=== PATIENT | female | born 1945 | race Caucasian/White ===

== ENCOUNTER 2020-05-25 23:42 | Inpatient (IN) | payer MEDICARE, OTHER, SELFPAY ==
--- NOTE | ~2020-05-25 | XR_ITS ---
EXAMINATION: XR chest 1V portable EXAM DATE: 05/26/2020 00:43 INDICATION: Shortness of breath. TECHNIQUE: Portable AP frontal chest x-ray was obtained. Comparison is made to prior examination from 11/23/2019. FINDINGS: The cardiac silhouette is enlarged. Cardiac silhouette is stable in size compared to prior exam. There is pulmonary vascular congestion. Indistinct bilateral reticulation, could indicate mild pulmonary edema. Probable small left pleural effusion. No confluent consolidation or pneumothorax. M ild hyperinflation. There are mild bony degenerative changes. IMPRESSION: Congestive changes, possible mild edema. CHF? Reviewed, dictated and finalized at location A.
--- NOTE | ~2020-05-25 | US_ITS ---
EXAMINATION: US venous doppler LE EXAM DATE: 05/26/2020 13:53 INDICATION: History of blood clot. Dyspnea on exertion. Respiratory abnormality. TECHNIQUE: Multiple grayscale, color flow and Doppler images of the lower extremity deep venous syste ms bilaterally were obtained and reviewed. Comparison is made to prior examination from 02/02/2019. FINDINGS: Right side: The right common femoral, femoral and profunda veins demonstrate normal color flow, respi ratory variation, augmentation and compressibility. Compressibility, color flow confirmed within the right popliteal, posterior tibial, peroneal, and greater saphenous veins. Left side: The left common femoral, femoral and profunda veins demonstrate normal color flow, respira tory variation, augmentation and compressibility. Compressibility, color flow confirmed within the l eft popliteal, posterior tibial, peroneal, and greater saphenous veins. IMPRESSION: 1. No lower extremity deep venous thrombosis bilaterally. Reviewed, dictated and finalized at location A.
--- NOTE | 2020-05-25 23:43 | ED.SOB ---
HPI - SOB/Dyspnea General Chief Complaint: Shortness of Breath/Dyspnea Stated Complaint: sob History of Present Illness HPI Narrative: 74 yo female w/ h/o COPD, pulmonary HTN, a-fib presents from home for SOB. Per ems she has been more sob recently. Acute worse this evening. Gave herself a nebulizer treatment and took xanax just prior to EMS arrival. She was initially hypoxic and required 5 liters O2 to bring sats up. Doing better by the time they arrived at the ED. No feeling drowsy from the xanax and histopry is somewhat limited. Related Data Home Medications Medication Instructions Recorded Confirmed albuterol sulfate 2.5 mg INHALATION QID 05/26/20 05/26/20 apixaban [Eliquis] 5 mg PO BID 05/26/20 05/26/20 hydrocodone-acetaminophen 1 tablet PO Q6H PRN 05/26/20 05/26/20 metoprolol succinate 12.5 mg PO DAILY 05/26/20 05/26/20 Allergies Allergy/AdvReac Type Severity Reaction Status Date / Time No Known Allergies Allergy Unknown Verified 03/18/20 14:19 Review of Systems Review of Systems: All systems reviewed & are unremarkable except as noted in HPI and below Constitutional: Constitutional: Denies fever(s) Cardiovascular: Cardiovascular: Denies chest pain Respiratory: Respiratory: Reports dyspnea and Reports wheezing PMFSH Past Medical History Medical History Angina at rest Anxiety Arthritis Asthma Benign colon polyp Benign essential tremor Bronchitis Chronic atrial fibrillation Chronic diastolic congestive heart failure Echocardiogram in June 2019 showed normal ejection fraction at 65%, diastolic dysfunction, mild MR, mild , and severe pulmonary hypertension with a peak RVSP of 63 millimeters of mercury. Chronic pain Chronic pain disorder Chronic pain syndrome Due to chronic back and neck pain. She is on long-term opiate therapy. Chronic respiratory failure with hypoxia On 2.5 liters nasal cannula. COPD (chronic obstructive pulmonary disease) Depression DVT (deep venous thrombosis) Emphysema lung Fibromyalgia MYKEL (generalized anxiety disorder) GERD (gastroesophageal reflux disease) History of tobacco use Hypertension Inguinal hernia ALBERTO (obstructive sleep apnea) Osteoporosis Peripheral neuropathy Pneumonia Seasonal allergies Severe pulmonary arterial systolic hypertension RVSP of 63 millimeters of mercury on echocardiogram in June 2019. Sleep apnea treated with nocturnal BiPAP Takotsubo cardiomyopathy In May 2019 with ejection fraction as low as 25 to 30%. EF improved to 65% on echo in June 2019. Type 2 diabetes mellitus with autonomic neuropathy Uterine cancer UTI (urinary tract infection) Surgical History Surgical History History of 2 sections History of cardiac cath History of cholecystectomy History of dilatation and curettage History of gastric bypass History of incisional hernia repair History of right knee joint replacement History of surgical removal of ganglion cyst History of total abdominal hysterectomy and bilateral salpingo-oophorectomy For uterine cancer. History of tubal ligation Hx of section Status post exploratory laparotomy With adhesiolysis. Family History Family History Mother Diabetes mellitus Acute myocardial infarction Family history of chronic obstructive pulmonary disease Family history of heart disease in male family member before age 55 Patient's mother is Father Family history of arthritis Family history of emphysema Family history of lung disease Patient's father is Sibling Family history of malignant neoplasm of uterus Family history of malignant neoplasm of ovary Patient's sister is in good health Family history of malignant neoplasm Patient's sister is Other Family history o
[2020-05-25 23:44] VITALS: BP 164/60; PULSE 91; RESP 22; O2SAT 97
[2020-05-25 23:56] VITALS: PULSE 90
[2020-05-26] VITALS (27 sets, daily range): BP systolic 120–157; BP diastolic 51–87; PULSE 77–117; RESP 13–26; TEMP 36.3–37.1; O2SAT 90–96; BMI 44.0
--- NOTE | 2020-05-26 | ECHO_ITS ---
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 Summary 1. Left ventricular systolic function is normal, estimated at 60-65%. 2. There is mildly increased left ventricular wall thickness. 3. Global longitudinal strain is normal at -18 %. 4. Right ventricular chamber dimension is mildly enlarged. 5. Right atrial chamber dimension is mildly enlarged. 6. Left atrial chamber dimension is moderately enlarged. 7. There is mild mitral valve regurgitation. 8. There is mild tricuspid valve regurgitation. 9. Moderate pulmonary hypertension, estimated pulmonary arterial systolic pressure is 50 mmHg. Left Ventricle Left ventricular chamber dimension is normal. Left ventricular systolic function is normal, estimated at 60-65%. There is mildly increased left ventricular wall thickness. The left ventricular diastolic function is indeterminate. Global longitudinal strain is normal at -18 %. Right Ventricle Right ventricular chamber dimension is mildly enlarged. Right ventricular systolic function is normal. Left Atria Left atrial chamber dimension is moderately enlarged. Right Atria Right atrial chamber dimension is mildly enlarged. Aortic Valve The aortic valve is not well visualized. There is mild aortic valve sclerosis. There is no aortic valve stenosis. There is no aortic valve regurgitation. Pulmonic Valve The pulmonic valve is not well visualized. There is trace pulmonic regurgitation. Mitral Valve The mitral valve has normal leaflets. There is mild mitral valve regurgitation. The mitral valve annulus is mildly calcified. Tricuspid Valve The tricuspid valve leaflets are normal. There is mild tricuspid valve regurgitation. Moderate pulmonary hypertension, estimated pulmonary arterial systolic pressure is 50 mmHg. Pericardium/Pleural The pericardium appears normal. There is no pericardial effusion. Inferior Vena Cava Dilated inferior vena cava with >50% collapse upon inspiration consistent with elevated right atrial pressure, 10 mmHg. Aorta The aortic root size at the sinus of Valsalva is normal. Left Ventricular Outflow Tract Name Value Normal LVOT 2D LVOT Diameter 2.0 cm LVOT Doppler LVOT Peak Gradient 7 mmHg LVOT Mean Gradient 4 mmHg LVOT VTI 32 cm LVOT VTI/AV VTI Ratio 0.9 LVOT Stroke Volume 104 ml
[2020-05-26 00:01] LABS: Basophils Absolute Auto 0.1 K/mm3 (0.0-0.1); Basophils Percent Auto 0.9 % (0.2-1.2); Eosinophils Absolute Auto 0.2 K/mm3 (0-0.3); Eosinophils Percent Auto 2.5 % (0-4.4); Hemoglobin 9.3 g/dL (12.0-15.0); Immature Granulocyte Absolute 0.03 K/mm3 (0.00-0.031); Immature Granulocyte Percent A 0.4 % (0-0.5); Lymphocytes Absolute Auto 0.94 K/mm3 (0.9-3.2); Lymphocytes Percent Auto 12.2 % (18.3-44.2); Mean Corpuscular HGB Conc 29.1 g/dl (32-36); Mean Corpuscular Hemoglobin 24.2 pg (26-34); Mean Corpuscular Volume 83.1 fl (80-100); Mean Platelet Volume 8.5 fl (7.4-10.4); Monocytes Absolute Auto 0.6 K/mm3 (0.1-0.6); Monocytes Percent Auto 7.3 % (2.6-8.5); Neutrophils Absolute Auto 5.9 K/mm3 (1.3-6.7); Neutrophils Percent Auto 76.7 % (45.5-73.1); Platelet Count Result 425 k/mm3 (150-375); Red Blood Count 3.85 M/mm3 (4.2-5.4); Red Cell Distribution Width 17.4 % (11.5-14.5); White Blood Count 7.7 K/mm3 (4.5-10.0)
[2020-05-26] MEDS: ALBUTEROL SULFATE NEB 2.5 MG/0.5 ML INH 5 MG INHALATION ×5 (00:07→20:06)
[2020-05-26] MEDS: IPRATROPIUM BR 0.02% INH SOLN 0.5 MG/2.5 ML VIAL INHALATION ×5 (00:07→20:06)
[2020-05-26 00:11] LABS: Platelet Estimate Adequate (Adequate)
[2020-05-26 00:12] LABS: Hypochromasia 1+ (NORMAL)
--- NOTE | 2020-05-26 00:14 | ECG_ITS ---
Measurements Intervals [place] Rate: 82 P: [place]: 0 QRS: 118 QRSD: 98 T: 33 QT: 375 QTc: 439 Interpretive Statements ATRIAL FIBRILLATION BORDERLINE T WAVE ABNORMALITY- DIFFUSE LEADS BASELINE ARTIFACT- I, II, AVR, AVL, AVF, V1 ABNORMAL ECG Electronically Signed On 05-26-2020 6:53:34 CDT by Derian Tineo D.O.
[2020-05-26 00:16] LABS: Anion Gap 12.6 mmol/L (7-16); Blood Urea Nitrogen 8 mg/dL (7-17); Calcium 8.6 mg/dL (8.4-10.2); Carbon Dioxide 26 mmol/L (22-30); Chloride 105 mmol/L (98-107); Estimated CRCL calculation 136 ml/min; Estimated Glomerular Filt Rate > 60; Glucose 106 mg/dL (65-105); Potassium 3.6 mmol/L (3.4-5.0); Sodium 140 mmol/L (137-145)
[2020-05-26 00:17] LABS: INR 1.1; Partial Thromboplastin Time 30.5 SECONDS (22.3-36.8); Prothrombin Time 13.9 Seconds (11.1-14.7)
[2020-05-26 00:26] LABS: pH ABG 7.391 (7.350-7.450)
[2020-05-26 00:27] LABS: Base Excess ABG -0.8 mEq/l (+/-2.0); Oxygen Saturation ABG 97.1 % (95.0-100.0); PCO2 ABG 40.5 mmHg (35.0-45.0); PO2 ABG 92.8 mmHg (80.0-100.0); Total Hemoglobin 10.2 g/dL (12.0-18.0)
[2020-05-26 00:27] LABS: NT Pro B Type Natriuretic Pept 2290 PG/ML (5-100); Troponin I < 0.012 ng/mL (0.000-0.034)
[2020-05-26 00:28] LABS: Alveolar/Arterial O2 Gradient 145.8 mmHg; Carboxyhemoglobin 0.6 % THb (0-2.0); Oxygen Content ABG 13.9 %vol (16.0-22.0); Oxyhemoglobin 95.8 % THb (90.0-100.0)
[2020-05-26 00:29] LABS: Device NASAL CANNULA; Fractional Inspired Oxygen 40 %; Methemoglobin ABG 0.3 %THb (0-1.5); Modified Allen's Test Pass; PO2 FiO2 Ratio Arterial Blood 2.32 %; Reduced Hemoglobin 3.3 %THb (0-5.0); Site Drawn RIGHT RADIAL
[2020-05-26] MEDS: FUROSEMIDE INJ 40 MG/4 ML VIAL IV PUSH ×3 (00:48→21:05)
--- NOTE | 2020-05-26 01:08 | PC.NURSE ---
Pt placed down to 3.5 L of oxygen by RT. Pt breathing less labored after receiving neb treatments and able to talk in complete sentences. Pt states her pain is manly in her lower back. made aware.
--- NOTE | 2020-05-26 03:38 | ADMGEN ---
This patient, Cheyenne Sawyer, was admitted to 2 Medical Room 249-01. Patient/family oriented to hospital policies and general routines including ID bracelet, bed and alarms, visiting hours, pain management, procedures, bathroom and other care routines, personal items, smoking policy, room service/diet, and visiting hours. Valuables list has been completed. Information on how to activate the Rapid Response Team has been discussed. Patient/Family are encouraged to report perceived risks to care and to ask questions if they do not understand what they are told or what they should do.
--- NOTE | 2020-05-26 09:53 | PM.IMHP ---
H&P: HPI History of Present Illness Chief complaint: COPD exacerbation Narrative: Cheyenne Sawyer is a 74 year old female with a past medical history chronic oxygen use, AFib RVR, diastolic heart failure, COPD, and anxiety who presented emergency room from home for increasing shortness of breath. Patient states that at baseline she feels short of breath at times and utilizes oxygen but for the last week she feels like she can't catch her breath. She states that she feels short of breath just sitting and it is worse when she walks to the bathroom. She has a chair and between her room and the bathroom that she has to sit down on so she can make it to the bathroom. She also mentions that she has woken up twice from a does sleep with left-sided chest pain. This lasts only a few minutes and goes away on its own. She said it feels like a pressure like pain and breathing does not make it better or worse. on 1 of the occasions that she woke up, she walked to the bathroom at that time and the chest pain got worse but was better when she sat back down. she chronically takes Eliquis due to AFib but has been out of it for a month and she is trying to get a hold of Dr. Shin so she can get this refilled. She has seen cardiology in the past but has never followed up with them outpatient. As for her diuretic, she states that she misses pills occasionally because she is tired of urinating all the time. She probably missed 3 this week. Since then, she feels smothered when she tries to lay flat and is afraid to go to sleep because she is afraid to . She does feel little bit more weak and thinks physical therapy will help. She denies nausea, vomiting, fevers, chills, diarrhea or constipation. Last bowel movement was yesterday was normal for her. No dysuria. Review of Systems Review of Systems: All systems reviewed & are unremarkable except as noted in HPI and below PMFSH Past Medical History Medical History Angina at rest Anxiety Arthritis Asthma Benign colon polyp Benign essential tremor Bronchitis Chronic atrial fibrillation Chronic diastolic congestive heart failure Echocardiogram in June 2019 showed normal ejection fraction at 65%, diastolic dysfunction, mild MR, mild , and severe pulmonary hypertension with a peak RVSP of 63 millimeters of mercury. Chronic pain Chronic pain disorder Chronic pain syndrome Due to chronic back and neck pain. She is on long-term opiate therapy. Chronic respiratory failure with hypoxia On 2.5 liters nasal cannula. COPD (chronic obstructive pulmonary disease) Depression DVT (deep venous thrombosis) Emphysema lung Fibromyalgia MYKEL (generalized anxiety disorder) GERD (gastroesophageal reflux disease) History of tobacco use Hypertension Inguinal hernia ALBERTO (obstructive sleep apnea) Osteoporosis Peripheral neuropathy Pneumonia Seasonal allergies Severe pulmonary arterial systolic hypertension RVSP of 63 millimeters of mercury on echocardiogram in June 2019. Takotsubo cardiomyopathy In May 2019 with ejection fraction as low as 25 to 30%. EF improved to 65% on echo in June 2019. Type 2 diabetes mellitus with autonomic neuropathy Uterine cancer UTI (urinary tract infection) Surgical History Surgical History History of 2 sections History of cardiac cath History of cholecystectomy History of dilatation and curettage History of gastric bypass History of incisional hernia repair History of right knee joint replacement History of surgical removal of ganglion cyst History of total abdominal hysterectomy and bilateral salpingo-oophorectomy For uterine cancer. History of tubal ligation Hx of section Status post exploratory laparotomy With adhesiolysis. Family History Family History Mother Diab
[2020-05-26] MEDS: APIXABAN 5 MG TABLET PO ×2 (10:32→16:43)
[2020-05-26] MEDS: SPIRONOLACTONE 25 MG TABLET PO (10:32)
[2020-05-26] MEDS: ALPRAZolam 0.5 MG TABLET PO ×2 (10:32→21:05)
[2020-05-26] MEDS: CYCLOBENZAPRINE HCL 10 MG TABLET PO (10:32)
[2020-05-26] MEDS: LOSARTAN POTASSIUM 100 MG TABLET PO (10:32)
[2020-05-26] MEDS: amLODIPine BESYLATE 5 MG TABLET 10 MG PO (10:32)
[2020-05-26] MEDS: METOPROLOL SUCCINATE EXT REL 12.5 MG TABCR PO (10:33)
[2020-05-26] MEDS: TOLNAFTATE 1% POWDER 45 GM BTL 1 APPLIC TOPICAL ×2 (12:28→21:06)
[2020-05-26 13:13] LABS: Glucose Point of Care 196 (65-105)
[2020-05-26 17:21] LABS: Glucose Point of Care 144 (65-105)
[2020-05-26 20:54] LABS: Glucose Point of Care 83 (65-105)
[2020-05-26] MEDS: QUEtiapine FUMARATE 12.5 MG TABLET PO (21:05)
[2020-05-27] VITALS (17 sets, daily range): BP systolic 122–154; BP diastolic 66–74; PULSE 74–106; RESP 14–20; TEMP 36.1–36.6; O2SAT 90–98
[2020-05-27] MEDS: IPRATROPIUM BR 0.02% INH SOLN 0.5 MG/2.5 ML VIAL INHALATION ×3 (02:18→20:55)
[2020-05-27] MEDS: ALBUTEROL SULFATE NEB 2.5 MG/0.5 ML INH 5 MG INHALATION ×3 (02:18→20:55)
[2020-05-27 05:52] LABS: Hematocrit 30.8 % (37.0-47.0); Hemoglobin 9.2 g/dL (12.0-15.0); Mean Corpuscular HGB Conc 29.9 g/dl (32-36); Mean Corpuscular Hemoglobin 24.3 pg (26-34); Mean Corpuscular Volume 81.3 fl (80-100); Platelet Count Result 439 k/mm3 (150-375); Red Blood Count 3.79 M/mm3 (4.2-5.4); Red Cell Distribution Width 17.7 % (11.5-14.5); White Blood Count 9.1 K/mm3 (4.5-10.0)
[2020-05-27 06:02] LABS: Hemoglobin A1C 5.6 % (<5.7)
[2020-05-27 06:22] LABS: Anion Gap 13.1 mmol/L (7-16); Blood Urea Nitrogen 19 mg/dL (7-17); CRP 2.6 mg/dL (<1.0); Calcium 8.2 mg/dL (8.4-10.2); Carbon Dioxide 30 mmol/L (22-30); Chloride 98 mmol/L (98-107); Estimated CRCL calculation 93 ml/min; Estimated Glomerular Filt Rate > 60; Glucose 125 mg/dL (65-105); Lactate Dehydrogenase 384 U/L (313-618); Magnesium 1.9 mg/dL (1.6-2.3); Potassium 3.1 mmol/L (3.4-5.0); Sodium 138 mmol/L (137-145)
[2020-05-27 08:01] LABS: Glucose Point of Care 120 (65-105)
[2020-05-27] MEDS: POTASSIUM CHLORIDE 20 MEQ TABLET 40 MEQ PO (08:21)
[2020-05-27] MEDS: METOPROLOL SUCCINATE EXT REL 12.5 MG TABCR PO (08:21)
[2020-05-27] MEDS: SPIRONOLACTONE 25 MG TABLET PO (08:21)
[2020-05-27] MEDS: ALPRAZolam 0.5 MG TABLET PO ×2 (08:21→21:05)
[2020-05-27] MEDS: amLODIPine BESYLATE 5 MG TABLET 10 MG PO (08:21)
[2020-05-27] MEDS: APIXABAN 5 MG TABLET PO ×2 (08:21→17:41)
[2020-05-27] MEDS: predniSONE 20 MG TABLET 40 MG PO (08:22)
[2020-05-27] MEDS: LOSARTAN POTASSIUM 100 MG TABLET PO (08:22)
[2020-05-27] MEDS: FUROSEMIDE INJ 40 MG/4 ML VIAL IV PUSH ×2 (08:22→14:32)
[2020-05-27] MEDS: TOLNAFTATE 1% POWDER 45 GM BTL 1 APPLIC TOPICAL ×2 (08:25→21:06)
--- NOTE | 2020-05-27 09:14 | PM.IMPN ---
Progress Note: A&P Assessment and Plan (1) Acute and chronic respiratory failure: Qualifiers: Respiratory failure complication: unspecified whether with hypoxia or hypercapnia Qualified Code(s): J96.20 - Acute and chronic respiratory failure, unspecified whether with hypoxia or hypercapnia Code(s): J96.20 - Acute and chronic respiratory failure, unspecified whether with hypoxia or hypercapnia Status: Acute Assessment and Plan: Acute on chronic respiratory failure. Patient is usually 3 L of oxygen at home and had to be increased to 5 L. She is now on baseline 3L. Her acute on chronic respiratory failure is likely due to CHF exacerbation with a mild component of COPD as she does have wheezing. She still has mild edema to the lower extremities as well as rales at the bases. She is also on spironolactone at home which we will continue. Last echo was October 2019 which showed an EF of 60% with moderate pulmonary hypertension and diastolic dysfunction. Since she has had a change in status. Echo was repeated and results are pending. Consider cardiology consult if there are new findings on echocardiogram. She may need a stress test outpatient as well for her worsening dyspnea on exertion, worsening CHF, and chest pain, although, there may be a component of anxiety here. She needs to follow-up with cardiology outpatient as advised in the past. Overall, she is much improved with her current regimen with adequate diuresis. Plan to give one additional IV push of lasix this afternoon (she does not want to take it right before bed) and resume lasix 40mg PO QD for tomorrow. (2) Acute on chronic diastolic (congestive) heart failure: Code(s): I50.33 - Acute on chronic diastolic (congestive) heart failure Status: Acute Assessment and Plan: Chest x-ray consistent with CHF exacerbation as well as patient reports hypoxia. Will continue with above plan. Echo ordered and pending. (3) COPD exacerbation: Code(s): J44.1 - Chronic obstructive pulmonary disease with (acute) exacerbation Status: Acute Assessment and Plan: Continue inhalers. Continue PO prednisone. Continue home oxygen. She is at her baseline. She still has wheezes. (4) Chronic pain: Code(s): G89.29 - Other chronic pain Status: Acute Assessment and Plan: Continue home [place]. Patient has longstanding neck and back pain that she sees pain management for. (5) MYKEL (generalized anxiety disorder): Code(s): F41.1 - Generalized anxiety disorder Status: Acute Assessment and Plan: Patient has a history of anxiety. She takes alprazolam p.r.n. at home and we will continue with that. It looks like she was discharged on buspirone in October and this was never completed. She should speak to her doctor about possible SSRI but she is also on Seroquel although she is unsure if she takes this medication. Will continue with that as well (6) Type 2 diabetes mellitus with autonomic neuropathy: Code(s): E11.43 - Type 2 diabetes mellitus with diabetic autonomic (poly)neuropathy Status: Acute Assessment and Plan: The patient's A1c in October was 6.8 and she was discharged on Lantus to [facility]. She took it while she was there and when she was discharged from there, they gave her a pain with no needles and she never followed up with that. Repeat A1c was 5.6. Blood sugar elevations are likely due to steroid therapy. Plan to continue ACHS glucose monitoring, sliding scale insulin, and hypoglycemia protocl. (7) ALBERTO (obstructive sleep apnea): Code(s): G47.33 - Obstructive sleep apnea (adult) (pediatric) Status: Acute Assessment and Plan: Continue CPAP titrated to home settings. (8) Chronic atrial fibrillation: Code(s): I48.20 - Chronic atrial fibrillation, unspecified Status: Acute Assessment and Plan: Rate well-control
[2020-05-27 11:36] LABS: Glucose Point of Care 138 (65-105)
[2020-05-27 16:55] LABS: Glucose Point of Care 159 (65-105)
--- NOTE | 2020-05-27 18:35 | PC.NURSE ---
On 05/27/20, the license-pending RN, Nannette Mueller, provided care and completed [employer] ([employer] documentation on this patient. I have reviewed the license-pending RN's documentation and agree with the findings.
[2020-05-27] MEDS: QUEtiapine FUMARATE 12.5 MG TABLET PO (21:05)
[2020-05-27 21:26] LABS: Glucose Point of Care 156 (65-105)
[2020-05-28] VITALS (19 sets, daily range): BP systolic 142–148; BP diastolic 65–77; PULSE 75–101; RESP 16–20; TEMP 36.2–36.5; O2SAT 93–97
[2020-05-28] MEDS: IPRATROPIUM BR 0.02% INH SOLN 0.5 MG/2.5 ML VIAL INHALATION ×4 (02:30→20:37)
[2020-05-28] MEDS: ALBUTEROL SULFATE NEB 2.5 MG/0.5 ML INH 5 MG INHALATION ×4 (02:30→20:37)
[2020-05-28 05:28] LABS: Hematocrit 30.4 % (37.0-47.0); Hemoglobin 8.9 g/dL (12.0-15.0); Mean Corpuscular HGB Conc 29.3 g/dl (32-36); Mean Corpuscular Hemoglobin 23.6 pg (26-34); Mean Corpuscular Volume 80.6 fl (80-100); Mean Platelet Volume 8.5 fl (7.4-10.4); Platelet Count Result 482 k/mm3 (150-375); Red Blood Count 3.77 M/mm3 (4.2-5.4); Red Cell Distribution Width 17.6 % (11.5-14.5); White Blood Count 8.7 K/mm3 (4.5-10.0)
[2020-05-28 05:41] LABS: Anion Gap 10.3 mmol/L (7-16); Blood Urea Nitrogen 25 mg/dL (7-17); Calcium 8.3 mg/dL (8.4-10.2); Carbon Dioxide 31 mmol/L (22-30); Chloride 99 mmol/L (98-107); Estimated CRCL calculation 81 ml/min; Estimated Glomerular Filt Rate > 60; Glucose 109 mg/dL (65-105); Magnesium 2.1 mg/dL (1.6-2.3); Potassium 3.3 mmol/L (3.4-5.0); Sodium 137 mmol/L (137-145)
[2020-05-28] MEDS: POTASSIUM CHLORIDE 20 MEQ TABLET PO (08:00)
[2020-05-28] MEDS: predniSONE 20 MG TABLET 40 MG PO (08:01)
[2020-05-28] MEDS: SPIRONOLACTONE 25 MG TABLET PO (08:01)
[2020-05-28] MEDS: METOPROLOL SUCCINATE EXT REL 12.5 MG TABCR PO (08:01)
[2020-05-28] MEDS: amLODIPine BESYLATE 5 MG TABLET 10 MG PO (08:01)
[2020-05-28] MEDS: FUROSEMIDE 40 MG TABLET PO (08:02)
[2020-05-28] MEDS: APIXABAN 5 MG TABLET PO ×2 (08:02→18:25)
[2020-05-28] MEDS: ALPRAZolam 0.5 MG TABLET PO ×2 (08:02→20:08)
[2020-05-28] MEDS: LOSARTAN POTASSIUM 100 MG TABLET PO (08:02)
[2020-05-28] MEDS: TOLNAFTATE 1% POWDER 45 GM BTL 1 APPLIC TOPICAL ×2 (08:03→20:09)
[2020-05-28 08:05] LABS: Glucose Point of Care 99 (65-105)
[2020-05-28 11:30] LABS: Glucose Point of Care 154 (65-105)
--- NOTE | 2020-05-28 14:44 | PM.IMPN ---
Progress Note: A&P Assessment and Plan (1) Acute and chronic respiratory failure: Qualifiers: Respiratory failure complication: unspecified whether with hypoxia or hypercapnia Qualified Code(s): J96.20 - Acute and chronic respiratory failure, unspecified whether with hypoxia or hypercapnia Code(s): J96.20 - Acute and chronic respiratory failure, unspecified whether with hypoxia or hypercapnia Status: Acute Assessment and Plan: Acute on chronic respiratory failure. Patient is usually 3 L of oxygen at home and had to be increased to 5 L. She is now on baseline 3L. Her acute on chronic respiratory failure is likely due to CHF exacerbation with a mild component of COPD as she does have wheezing. She still has mild edema to the lower extremities as well as rales at the bases. She is also on spironolactone at home which we will continue. Last echo was October 2019 which showed an EF of 60% with moderate pulmonary hypertension and diastolic dysfunction. Since she has had a change in status. Echo was repeated and results are pending. Consider cardiology consult if there are new findings on echocardiogram. She may need a stress test outpatient as well for her worsening dyspnea on exertion, worsening CHF, and chest pain, although, there may be a component of anxiety here. She needs to follow-up with cardiology outpatient as advised in the past. Overall, she is much improved with her current regimen with adequate diuresis. Plan to give one additional IV push of lasix this afternoon (she does not want to take it right before bed) and resume lasix 40mg PO QD for tomorrow. 05/28/20 14:44 patient is 74 year female history of chronic respiratory failure on oxygen 3 L nasal cannula patient was brought to the emergency department with shortness of breath and worsening hypoxia requiring 5 L of oxygen, patient has been diuresed with p.o. Lasix, recent cardiac echo showed preserved LV function, undetermined diastolic function however moderate pulmonary hypertension, her overall symptoms are improved, now patient is on her baseline with a 3 L of oxygen and able to participate physical therapy, continue the present management reassess and may possibly discharge home tomorrow (2) Acute on chronic diastolic (congestive) heart failure: Code(s): I50.33 - Acute on chronic diastolic (congestive) heart failure Status: Acute Assessment and Plan: Chest x-ray consistent with CHF exacerbation as well as patient reports hypoxia. Will continue with above plan. Echo ordered and pending. (3) COPD exacerbation: Code(s): J44.1 - Chronic obstructive pulmonary disease with (acute) exacerbation Status: Acute Assessment and Plan: Continue inhalers. Continue PO prednisone. Continue home oxygen. She is at her baseline. She still has wheezes. (4) Chronic pain: Code(s): G89.29 - Other chronic pain Status: Acute Assessment and Plan: Continue home [place]. Patient has longstanding neck and back pain that she sees pain management for. (5) MYKEL (generalized anxiety disorder): Code(s): F41.1 - Generalized anxiety disorder Status: Acute Assessment and Plan: Patient has a history of anxiety. She takes alprazolam p.r.n. at home and we will continue with that. It looks like she was discharged on buspirone in October and this was never completed. She should speak to her doctor about possible SSRI but she is also on Seroquel although she is unsure if she takes this medication. Will continue with that as well (6) Type 2 diabetes mellitus with autonomic neuropathy: Code(s): E11.43 - Type 2 diabetes mellitus with diabetic autonomic (poly)neuropathy Status: Acute Assessment and Plan: The patient's A1c in October was 6.8 and she was discharged on Lantus to [facility]. She took it while she was there and when she was discharged from there, they gave her
[2020-05-28 17:06] LABS: Glucose Point of Care 167 (65-105)
[2020-05-28] MEDS: QUEtiapine FUMARATE 12.5 MG TABLET PO (20:08)
[2020-05-28 23:30] LABS: Glucose Point of Care 118 (65-105)
[2020-05-29] VITALS (16 sets, daily range): BP systolic 122–128; BP diastolic 62–70; PULSE 74–107; RESP 16–20; TEMP 36.3–36.4; O2SAT 94–97
[2020-05-29] MEDS: ALBUTEROL SULFATE NEB 2.5 MG/0.5 ML INH 5 MG INHALATION ×3 (01:05→13:14)
[2020-05-29] MEDS: IPRATROPIUM BR 0.02% INH SOLN 0.5 MG/2.5 ML VIAL INHALATION ×3 (01:05→13:15)
[2020-05-29 05:52] LABS: Anion Gap 11.5 mmol/L (7-16); Blood Urea Nitrogen 23 mg/dL (7-17); Calcium 8.3 mg/dL (8.4-10.2); Carbon Dioxide 30 mmol/L (22-30); Chloride 97 mmol/L (98-107); Estimated CRCL calculation 93 ml/min; Estimated Glomerular Filt Rate > 60; Glucose 103 mg/dL (65-105); Potassium 3.5 mmol/L (3.4-5.0); Sodium 135 mmol/L (137-145)
[2020-05-29 07:40] LABS: Glucose Point of Care 95 (65-105)
[2020-05-29] MEDS: POTASSIUM CHLORIDE 20 MEQ TABLET PO (08:00)
[2020-05-29] MEDS: CYCLOBENZAPRINE HCL 10 MG TABLET PO (08:01)
[2020-05-29] MEDS: ALPRAZolam 0.5 MG TABLET PO (08:01)
[2020-05-29] MEDS: predniSONE 20 MG TABLET 40 MG PO (08:02)
[2020-05-29] MEDS: FUROSEMIDE 40 MG TABLET PO (08:02)
[2020-05-29] MEDS: APIXABAN 5 MG TABLET PO ×2 (08:02→16:29)
[2020-05-29] MEDS: LOSARTAN POTASSIUM 100 MG TABLET PO (08:02)
[2020-05-29] MEDS: amLODIPine BESYLATE 5 MG TABLET 10 MG PO (08:02)
[2020-05-29] MEDS: TOLNAFTATE 1% POWDER 45 GM BTL 1 APPLIC TOPICAL (08:03)
[2020-05-29] MEDS: METOPROLOL SUCCINATE EXT REL 12.5 MG TABCR PO (08:03)
[2020-05-29] MEDS: SPIRONOLACTONE 25 MG TABLET PO (08:03)
[2020-05-29 11:53] LABS: Glucose Point of Care 144 (65-105)
--- NOTE | 2020-05-29 16:10 | PM.DS ---
DS: Admitting Diagnosis Admitting Diagnosis Admitting Diagnosis: Acute and chronic respiratory failure, unspecified whether with hypoxia or hypercapnia DS: Discharge Diagnosis Discharge Diagnosis (1) Acute and chronic respiratory failure: Qualifiers: Respiratory failure complication: unspecified whether with hypoxia or hypercapnia Qualified Code(s): J96.20 - Acute and chronic respiratory failure, unspecified whether with hypoxia or hypercapnia Code(s): J96.20 - Acute and chronic respiratory failure, unspecified whether with hypoxia or hypercapnia Status: Acute Assessment and Plan: Acute on chronic respiratory failure. Patient is usually 3 L of oxygen at home and had to be increased to 5 L. She is now on baseline 3L. Her acute on chronic respiratory failure is likely due to CHF exacerbation with a mild component of COPD as she does have wheezing. She still has mild edema to the lower extremities as well as rales at the bases. She is also on spironolactone at home which we will continue. Last echo was October 2019 which showed an EF of 60% with moderate pulmonary hypertension and diastolic dysfunction. Since she has had a change in status. Echo was repeated and results are pending. Consider cardiology consult if there are new findings on echocardiogram. She may need a stress test outpatient as well for her worsening dyspnea on exertion, worsening CHF, and chest pain, although, there may be a component of anxiety here. She needs to follow-up with cardiology outpatient as advised in the past. Overall, she is much improved with her current regimen with adequate diuresis. Plan to give one additional IV push of lasix this afternoon (she does not want to take it right before bed) and resume lasix 40mg PO QD for tomorrow. 05/28/20 14:44 patient is 74 year female history of chronic respiratory failure on oxygen 3 L nasal cannula patient was brought to the emergency department with shortness of breath and worsening hypoxia requiring 5 L of oxygen, patient has been diuresed with p.o. Lasix, recent cardiac echo showed preserved LV function, undetermined diastolic function however moderate pulmonary hypertension, her overall symptoms are improved, now patient is on her baseline with a 3 L of oxygen and able to participate physical therapy, continue the present management reassess and may possibly discharge home tomorrow (2) Acute on chronic diastolic (congestive) heart failure: Code(s): I50.33 - Acute on chronic diastolic (congestive) heart failure Status: Acute Assessment and Plan: Chest x-ray consistent with CHF exacerbation as well as patient reports hypoxia. Will continue with above plan. Echo ordered and pending. (3) COPD exacerbation: Code(s): J44.1 - Chronic obstructive pulmonary disease with (acute) exacerbation Status: Acute Assessment and Plan: Continue inhalers. Continue PO prednisone. Continue home oxygen. She is at her baseline. She still has wheezes. (4) Chronic pain: Code(s): G89.29 - Other chronic pain Status: Acute Assessment and Plan: Continue home [place]. Patient has longstanding neck and back pain that she sees pain management for. (5) MYKEL (generalized anxiety disorder): Code(s): F41.1 - Generalized anxiety disorder Status: Acute Assessment and Plan: Patient has a history of anxiety. She takes alprazolam p.r.n. at home and we will continue with that. It looks like she was discharged on buspirone in October and this was never completed. She should speak to her doctor about possible SSRI but she is also on Seroquel although she is unsure if she takes this medication. Will continue with that as well (6) Type 2 diabetes mellitus with autonomic neuropathy: Code(s): E11.43 - Type 2 diabetes mellitus with diabetic autonomic (poly)neuropathy Status: Acute Assessment and Plan: The patient's
[2020-05-29 16:27] LABS: Glucose Point of Care 146 (65-105)
== END 2020-05-29 17:50 | disposition home or self-care (01) | DRG 291 ==
LOC: ANHED 23:57 → ANH2MED 05-26 02:02
PROVIDERS: Family Medicine; Physician Assistant; Admitting Provider Internal Medicine; Emergency Provider Emergency Medicine; PCP Family Medicine; Visit Provider Physician Assistant
DX: I11.0 Hypertensive heart disease with heart failure (principal); J96.20 Acute and chronic respiratory failure, unspecified whether with hypoxia or hypercapnia; J44.1 Chronic obstructive pulmonary disease with (acute) exacerbation; I48.20 Chronic atrial fibrillation, unspecified; I50.33 Acute on chronic diastolic (congestive) heart failure; G47.33 Obstructive sleep apnea (adult) (pediatric); I27.20 Pulmonary hypertension, unspecified; M81.0 Age-related osteoporosis without current pathological fracture; E11.43 Type 2 diabetes mellitus with diabetic autonomic (poly)neuropathy; K21.9 Gastro-esophageal reflux disease without esophagitis; M79.7 Fibromyalgia; G89.4 Chronic pain syndrome; E87.6 Hypokalemia; T50.2X5A Adverse effect of carbonic-anhydrase inhibitors, benzothiadiazides and other diuretics, initial encounter; Z96.651 Presence of right artificial knee joint; Z85.42 Personal history of malignant neoplasm of other parts of uterus; Z86.718 Personal history of other venous thrombosis and embolism; Z87.891 Personal history of nicotine dependence; Z90.49 Acquired absence of other specified parts of digestive tract; Z98.84 Bariatric surgery status; Z90.710 Acquired absence of both cervix and uterus
CPT/HCPCS: 36415; 36600; 71045; 80048; 82375; 82728; 82805; 83036; 83050; 83615; 83735; 83880; 84484; 85025; 85027; 85610; 85730; 86140; 93005; 93306; 93970; 94640; 96374; 97161; 97166; 99285; A9270; G0378; J1940; J7512

== ENCOUNTER 2021-01-13 13:41 | Emergency (ER) | payer MEDICARE, OTHER, SELFPAY ==
[2021-01-13] VITALS (7 sets, daily range): BP systolic 162–188; BP diastolic 73–96; PULSE 81–115; RESP 17–23; TEMP 37.1; O2SAT 96–98
--- NOTE | ~2021-01-13 | XR_ITS ---
EXAMINATION: XR chest 1V portable EXAM DATE: 01/13/2021 14:46 INDICATION: Shortness of breath. TECHNIQUE: Portable AP frontal chest x-ray was obtained. Comparison is made to prior examination from 05/26/2020. FINDINGS: Cardiomegaly and pulmonary vascular congestion. Possible mild pulmonary edema. No confluent consolidation, pneumothorax or pleural effusion suspected. Some chronic hyperinflation. There is aor tic arteriosclerosis. There are bony degenerative changes. IMPRESSION: Cardiomegaly. Possible mild CHF exacerbation. Reviewed, dictated and finalized at location A.
--- NOTE | 2021-01-13 13:42 | ECG_ITS ---
Measurements Intervals [place] Rate: 50 P: VT: 0 QRS: 152 QRSD: 125 T: 60 QT: 306 QTc: 280 Interpretive Statements ATRIAL FIBRILLATION RIGHT BUNDLE BRANCH BLOCK LEFT POSTERIOR FASCICULAR BLOCK LOW VOLTAGE- PRECORDIAL LEADS CANNOT RULE OUT SEPTAL INFARCT, AGE INDETERMINATE BASELINE ARTIFACT- I, III, AVL, V1-V2 ABNORMAL ECG Electronically Signed On 01-13-2021 13:59:03 CDT by Derian Tineo D.O.
--- NOTE | 2021-01-13 14:17 | ED.SOB ---
HPI - SOB/Dyspnea General Chief Complaint: Shortness of Breath/Dyspnea Stated Complaint: SOB Source: patient and EMS Mode of arrival: EMS Limitations: no limitations History of Present Illness HPI Narrative: 75 years old white female presents with increased shortness of breath over the last 3 to 4 days. Patient denies any chest pain, increase coughing or increase the amount of sputum production. Patient reports a lot of stress lately. Currently patient on 3 L of oxygen all the time. History of COPD, CHF, atrial fibrillation on Eliquis. Patient lives alone but her daughter and son lives next door Patient ran out of alprazolam 2 days ago Related Data Home Medications Medication Instructions Recorded Confirmed hydrocodone-acetaminophen 1 tablet PO Q6H PRN 05/26/20 10/13/20 meloxicam 01/13/21 Allergies Allergy/AdvReac Type Severity Reaction Status Date / Time No Known Allergies Allergy Unknown Verified 01/13/21 13:50 Review of Systems Review of Systems: Narrative: CONSTITUTIONAL: Denies fever, chills, or sweats. EYES: Denies visual changes, redness, or discharge. ENT: Denies rhinorrhea, congestion, sore throat, or otalgia. CARDIOVASCULAR: Denies chest pain, palpitations, or edema. RESPIRATORY: dyspnea. GASTROINTESTINAL: Denies abdominal pain, nausea, vomiting, or diarrhea. GENITOURINARY: Denies dysuria or hematuria. SKIN: Denies rash or itching. MUSCULOSKELETAL: Denies back pain, joint pain, or myalgia. NEUROLOGIC: Denies headache, numbness, or weakness. PSYCHIATRIC: Denies anxiety or depression. [facility] Past Medical History Medical History Angina at rest Anxiety Arthritis Asthma Benign colon polyp Benign essential tremor Bronchitis Chronic atrial fibrillation Chronic diastolic congestive heart failure Chronic pain Chronic pain disorder Chronic pain syndrome Due to chronic back and neck pain. She is on long-term opiate therapy. Chronic respiratory failure with hypoxia On 2.5 liters nasal cannula. COPD (chronic obstructive pulmonary disease) Depression DVT (deep venous thrombosis) Emphysema lung Fibromyalgia MYKEL (generalized anxiety disorder) GERD (gastroesophageal reflux disease) History of tobacco use Hypertension Inguinal hernia ALBERTO (obstructive sleep apnea) Osteoporosis Peripheral neuropathy Pneumonia Seasonal allergies Severe pulmonary arterial systolic hypertension RVSP of 63 millimeters of mercury on echocardiogram in June 2019. Takotsubo cardiomyopathy In May 2019 with ejection fraction as low as 25 to 30%. EF improved to 65% on echo in June 2019. Type 2 diabetes mellitus with autonomic neuropathy Uterine cancer UTI (urinary tract infection) Surgical History Surgical History History of 2 sections History of cardiac cath History of cholecystectomy History of dilatation and curettage History of gastric bypass History of incisional hernia repair History of right knee joint replacement History of surgical removal of ganglion cyst History of total abdominal hysterectomy and bilateral salpingo-oophorectomy For uterine cancer. History of tubal ligation Hx of section Status post exploratory laparotomy With adhesiolysis. Family History Family History Mother Diabetes mellitus Acute myocardial infarction Family history of chronic obstructive pulmonary disease Family history of heart disease in male family member before age 55 Patient's mother is Father Family history of arthritis Family history of emphysema Family history of lung disease Patient's father is Sibling Family history of malignant neoplasm of uterus Family history of malignant neoplasm of ovary Patient's sister is in good health Family history of malignant neoplasm Patient's sister
[2021-01-13 14:25] LABS: Alveolar/Arterial O2 Gradient 104.5 mmHg; Base Excess ABG 4.3 mEq/l (+/-2.0); Fractional Inspired Oxygen 32 %; HCO3 ABG 27.2 mEq/l (22.0-26.0); Oxygen Content ABG 15.3 %vol (16.0-22.0); Oxygen Saturation ABG 97.1 % (95.0-100.0); Oxyhemoglobin 95.2 % THb (90.0-100.0); PCO2 ABG 34.7 mmHg (35.0-45.0); PO2 ABG 83.1 mmHg (80.0-100.0); Total Hemoglobin 11.4 g/dL (12.0-18.0)
[2021-01-13 14:26] LABS: Modified Allen's Test Pass; Site Drawn RIGHT RADIAL; pH ABG 7.512 (7.350-7.450)
[2021-01-13 14:27] LABS: Device NASAL CANNULA
[2021-01-13 14:27] LABS: Basophils Absolute Auto 0.1 K/mm3 (0.0-0.1); Eosinophils Absolute Auto 0.2 K/mm3 (0-0.3); Eosinophils Percent Auto 2.5 % (0-4.4); Hematocrit 35.9 % (37.0-47.0); Immature Granulocyte Absolute 0.04 K/mm3 (0.00-0.031); Immature Granulocyte Percent A 0.5 % (0-0.5); Lymphocytes Absolute Auto 1.33 K/mm3 (0.9-3.2); Lymphocytes Percent Auto 16.3 % (18.3-44.2); Mean Corpuscular HGB Conc 30.6 g/dl (32-36); Mean Corpuscular Hemoglobin 27.3 pg (26-34); Mean Corpuscular Volume 89.1 fl (80-100); Mean Platelet Volume 8.8 fl (7.4-10.4); Monocytes Absolute Auto 0.5 K/mm3 (0.1-0.6); Monocytes Percent Auto 6.5 % (2.6-8.5); Neutrophils Percent Auto 73.2 % (45.5-73.1); Platelet Count Result 459 k/mm3 (150-375); Red Blood Count 4.03 M/mm3 (4.2-5.4); Red Cell Distribution Width 15.9 % (11.5-14.5); White Blood Count 8.2 K/mm3 (4.5-10.0)
[2021-01-13 14:34] LABS: INR 1.2; Partial Thromboplastin Time 32.2 SECONDS (22.3-36.8); Prothrombin Time 15.4 Seconds (11.1-14.7)
[2021-01-13 14:37] LABS: D Dimer 0.37 ug/mL (<0.48)
[2021-01-13 14:41] LABS: Alanine Aminotransferase 13 U/L (4-35); Albumin Level 4.7 g/dL (3.5-5.1); Alkaline Phosphatase 125 U/L (38-126); Anion Gap 12 mmol/L (8-16); Aspartate Amino Transferase 25 U/L (14-36); Bilirubin,Total 0.9 mg/dL (0.2-1.3); Blood Urea Nitrogen 11 mg/dL (7-17); Calcium 8.6 mg/dL (8.4-10.2); Carbon Dioxide 28 mmol/L (22-30); Chloride 100 mmol/L (98-107); Estimated CRCL calculation 95 ml/min; Estimated Glomerular Filt Rate > 60; Glucose 125 mg/dL (65-105); Potassium 3.1 mmol/L (3.4-5.0); Sodium 140 mmol/L (137-145)
[2021-01-13 14:48] LABS: NT Pro B Type Natriuretic Pept 4060 PG/ML (5-100)
[2021-01-13 14:51] LABS: Troponin I 0.012 ng/mL (0.000-0.034)
[2021-01-13] MEDS: POTASSIUM CHLORIDE 20 MEQ PACKET (FOR LIQUID) 40 MEQ PO (15:21)
[2021-01-13] MEDS: LORazepam (*CRX) 0.5 MG TABLET 1 MG PO (15:54)
--- NOTE | 2021-01-13 16:12 | PC.NURSE ---
Pt daughter not happy about pt being discharged. Pt states its fine, ill just go home, its just my nerves I explained that i would have the dr come back and talk to them. They states no its fine Ill just go home Daughter states we'll just come back tonight mom when you can't breath Pt asks can you ask the dr if he will write a prescription for her pain medicine because i am going to keep her at my house and i dont want to drive all the way to her house to get her meds and she hasn't had them since this morning. this RN made MD aware. MD at bedside at this time.
--- NOTE | 2021-01-13 16:30 | PC.NURSE ---
This RN to DC patient. Pt daughter states to patient don't sign that mom, cause we dont agree with you leaving This RN asked the pt if she felt comfortable leaving and she again states its fine Daughter asked if a new doctor would be here tonight and states that she will probably be back. Pt able to ambulate to wheelchair, in no distress, and was wheeled out to the exit by geotechnical laboratory technician.
== END 2021-01-13 16:37 | disposition home or self-care (01) ==
PROVIDERS: Emergency Provider Emergency Medicine; PCP Family Medicine
DX: F41.1 Generalized anxiety disorder (principal); E87.6 Hypokalemia; F45.8 Other somatoform disorders; I48.20 Chronic atrial fibrillation, unspecified; I50.32 Chronic diastolic (congestive) heart failure; I11.0 Hypertensive heart disease with heart failure; J96.11 Chronic respiratory failure with hypoxia; J43.9 Emphysema, unspecified; G89.4 Chronic pain syndrome; K21.9 Gastro-esophageal reflux disease without esophagitis; F32.9 Major depressive disorder, single episode, unspecified; G47.33 Obstructive sleep apnea (adult) (pediatric); M81.0 Age-related osteoporosis without current pathological fracture; E11.43 Type 2 diabetes mellitus with diabetic autonomic (poly)neuropathy; M79.7 Fibromyalgia; Z85.42 Personal history of malignant neoplasm of other parts of uterus; Z79.01 Long term (current) use of anticoagulants; Z86.718 Personal history of other venous thrombosis and embolism; Z87.440 Personal history of urinary (tract) infections; Z98.84 Bariatric surgery status; Z96.651 Presence of right artificial knee joint; Z87.891 Personal history of nicotine dependence; I45.2 Bifascicular block; R94.31 Abnormal electrocardiogram [ECG] [EKG]
CPT/HCPCS: 36415; 36600; 71045; 80053; 82805; 83880; 84484; 85025; 85380; 85610; 85730; 87040; 93005; 99284; A9270

== ENCOUNTER 2021-02-17 09:49 | Outpatient (CLI) | payer MEDICARE, OTHER, SELFPAY ==
--- NOTE | ~2021-02-17 | XR_ITS ---
XR lumbar spine 2-3V DATE: 02/17/2021 10:20 INDICATION: Lower back pain, radiculopathy TECHNIQUE: AP, lateral, coned lateral lumbosacral views COMPARISON: 09/04/2014 lumbar spine FINDINGS: There is levoscoliosis of the thoracolumbar spine. There is diffuse osteopenia. There is moderate degenerative disc disease at L1-2 and L3-4 and severe degenerative disc disease at L2-3, L4-5 and L5-S1. No fracture or bone destruction is evident. The lumbar pedicles are intact. The sacroiliac joints jack ear normal. Surgical clips overlie both sides of the pelvis. Mild abdominal aortic and more prominent iliac arter ial calcifications. IMPRESSION: Degenerative disc disease of the lumbar and lumbosacral spine Osteopenia Scoliosis Reviewed, dictated and finalized at location A.
== END 2021-02-17 09:50 | disposition home or self-care (01) ==
LOC: ANHIMG 09:55
PROVIDERS: PCP Family Medicine; Visit Provider Pain Medicine Interventional Pain Medicine
DX: M51.36 Other intervertebral disc degeneration, lumbar region (principal); G89.4 Chronic pain syndrome; Z79.891 Long term (current) use of opiate analgesic; Z51.81 Encounter for therapeutic drug level monitoring; Z13.89 Encounter for screening for other disorder; M85.88 Other specified disorders of bone density and structure, other site; M41.9 Scoliosis, unspecified
CPT/HCPCS: 72100

== ENCOUNTER 2021-03-22 12:51 | Inpatient (IN) | payer MEDICARE, OTHER, SELFPAY ==
[2021-03-22] VITALS (11 sets, daily range): BP systolic 133–215; BP diastolic 58–87; PULSE 77–116; RESP 16–22; TEMP 36.1–37.3; O2SAT 93–100; BMI 48.6
--- NOTE | ~2021-03-22 | CT_ITS ---
EXAMINATION: CT abdomen pelvis w con DATE: 03/22/2021 15:15 INDICATION: Lower abdomen pain TECHNIQUE: Computed tomography (CT) of the abdomen and pelvis was performed with 100 cc Omnipaque 350 intravenous contrast. The dose-length product was 1489.77 mGy-cm. Automated exposure control and ite rative reconstruction technique were employed. COMPARISON: CT dated 07/16/2017 FINDINGS: Stable 6 mm right lower lobe nodule, image 9. Bibasilar atelectasis. Cardiomegaly. No signi ficant pleural or pericardial effusion. There is enlargement of the left hepatic lobe with suggestion of nodular surface, suspicious for cirrhosis. Cholecystectomy clips are present. The spleen, pancrea s, left adrenal gland are unremarkable. There is a stable 1.5 cm right adrenal nodule, likely benign adenoma. Nonobstructive bowel gas pattern. There are calcified granulomas of the liver and spleen. Normal appe ndix. No significant vascular abnormality. No lymphadenopathy. There is extensive fatty infiltration and a subcutaneous fluid in the anterior abdominal wall, suspic ious for cellulitis. There are changes of gastric bypass surgery. Severe lumbar spondylosis. IMPRESSION: 1. Extensive fatty infiltration and subcutaneous fluid anterior abdominal wall inferiorly, suspicious for cellulitis. 2: Possible cirrhosis. 3: Cardiomegaly. Reviewed, dictated and finalized at location A.
--- NOTE | ~2021-03-22 | XR_ITS ---
EXAMINATION: XR chest 1V DATE: 03/22/2021 14:26 INDICATION: Weakness. TECHNIQUE: A single frontal view of the chest was obtained. COMPARISON: Chest single view 01/13/2021, chest CT 10/04/2019 FINDINGS: The patient is rotated to her left. There is mild atelectasis in left midlung zone. No pleu ral effusion or pneumothorax. Cardiomegaly is noted. IMPRESSION: 1. Mild atelectasis in left midlung zone. 2. Cardiomegaly. Reviewed, dictated and finalized at location B.
--- NOTE | ~2021-03-22 | US_ITS ---
US abdomen limited INDICATION: Elevated liver function tests PROCEDURE: Realtime right upper abdominal ultrasound. COMPARISON: No prior studies for comparison. FINDINGS: The pancreas is normal without focal mass or pancreatic ductal dilation. Liver echotexture is normal without focal mass or intrahepatic biliary dilatation. There is normal directional flow i n the portal vein. Gallbladder is surgically absent. Common bile duct measures 4.7 mm. . IMPRESSION: 1: Unremarkable limited abdominal ultrasound postcholecystectomy. Reviewed, dictated and finalized at location A.
--- NOTE | ~2021-03-22 | CT_ITS ---
EXAMINATION: CT brain wo con DATE: 03/22/2021 14:26 INDICATION: Weakness. TECHNIQUE: Computed tomography (CT) of the head was performed without intravenous contrast. The mA wa s adjusted according to patient size. Iterative reconstruction technique was employed. The dose-lengt h product was 605.33 mGy-cm. COMPARISON: Head CT 11/14/2019 FINDINGS: There is no intracranial hemorrhage, acute infarction, or abnormal intracranial mass lesion . The ventricles are normal in size. The paranasal sinuses are clear. The orbits are normal. The mast oid air cells are normal. IMPRESSION: 1. Normal brain. Reviewed, dictated and finalized at location B. IMPRESSION: 1. Normal brain.
--- NOTE | 2021-03-22 13:10 | ECG_ITS ---
Measurements Intervals [place] Rate: 93 P: NE: 0 QRS: 116 QRSD: 122 T: 16 QT: 380 QTc: 473 Interpretive Statements ATRIAL FIBRILLATION RIGHT AXIS DEVIATION RIGHT BUNDLE BRANCH BLOCK BASELINE WANDER- I, II, III, V3 ABNORMAL ECG Electronically Signed On 03-22-2021 20:25:35 CDT by Derian Tineo D.O.
--- NOTE | 2021-03-22 13:53 | ED.WEAKNESS ---
HPI - Weakness General Chief complaint: Weakness Stated complaint: SOB Time Seen by Provider: 03/22/21 13:25 Source: patient, family and RN notes reviewed Mode of arrival: EMS Limitations: clinical condition History of Present Illness HPI Narrative: This is a 75 year old female with multiple medical problems including COPD, chronic O2 dependence who presents for evaluation of generalized weakness. Patient states she has not felt well for 1 week. She reports weakness that has progressively worsened. She was unable to stand today. She reports abdominal pain when she eats but she is unable to specific other details. When asked if she is have any other symptoms she states she does not know. She denies falling today. Her daughter does state patient's edema is worse today, and patient states she has not taken her medications today. Related Data Home Medications Medication Instructions Recorded Confirmed hydrocodone-acetaminophen 1 tablet PO Q6H PRN 05/26/20 03/22/21 meloxicam 15 mg PO DAILY 01/13/21 03/22/21 budesonide-formoterol [Symbicort] 2 puff INHALATION BID 03/22/21 03/22/21 metoprolol succinate 12.5 mg PO DAILY 03/22/21 03/22/21 Allergies Allergy/AdvReac Type Severity Reaction Status Date / Time No Known Allergies Allergy Unknown Verified 03/22/21 13:28 Review of Systems Review of Systems: ROS unobtainable: Yes unobtainable due to medical condition PMFSH Past Medical History Medical History Angina at rest Anxiety Arthritis Asthma Benign colon polyp Benign essential tremor Bronchitis Chronic atrial fibrillation Chronic diastolic congestive heart failure Chronic pain Chronic pain disorder Chronic pain syndrome Due to chronic back and neck pain. She is on long-term opiate therapy. Chronic respiratory failure with hypoxia On 2.5 liters nasal cannula. COPD (chronic obstructive pulmonary disease) Depression DVT (deep venous thrombosis) Emphysema lung Fibromyalgia MYKEL (generalized anxiety disorder) GERD (gastroesophageal reflux disease) History of tobacco use Hypertension Inguinal hernia ALBERTO (obstructive sleep apnea) Osteoporosis Peripheral neuropathy Pneumonia Seasonal allergies Severe pulmonary arterial systolic hypertension RVSP of 63 millimeters of mercury on echocardiogram in June 2019. Takotsubo cardiomyopathy In May 2019 with ejection fraction as low as 25 to 30%. EF improved to 65% on echo in June 2019. Type 2 diabetes mellitus with autonomic neuropathy Uterine cancer UTI (urinary tract infection) Surgical History Surgical History History of 2 sections History of cardiac cath History of cholecystectomy History of dilatation and curettage History of gastric bypass History of incisional hernia repair History of right knee joint replacement History of surgical removal of ganglion cyst History of total abdominal hysterectomy and bilateral salpingo-oophorectomy For uterine cancer. History of tubal ligation Hx of section Status post exploratory laparotomy With adhesiolysis. Family History Family History Mother Diabetes mellitus Acute myocardial infarction Family history of chronic obstructive pulmonary disease Family history of heart disease in male family member before age 55 Patient's mother is Father Family history of arthritis Family history of emphysema Family history of lung disease Patient's father is Sibling Family history of malignant neoplasm of uterus Family history of malignant neoplasm of ovary Patient's sister is in good health Family history of malignant neoplasm Patient's sister is Other Family history of cardiovascular disease Family history of osteoarthritis Hypertension Social History Social
[2021-03-22 14:08] LABS: Alveolar/Arterial O2 Gradient 91.7 mmHg; Base Excess ABG 2.5 mEq/l (+/-2.0); Carboxyhemoglobin 0.9 % THb (0-2.0); Fractional Inspired Oxygen 30 %; HCO3 ABG 28.1 mEq/l (22.0-26.0); Methemoglobin ABG 0.2 %THb (0-1.5); Oxygen Content ABG 14.4 %vol (16.0-22.0); Oxygen Saturation ABG 92.7 % (95.0-100.0); Oxyhemoglobin 91.9 % THb (90.0-100.0); PCO2 ABG 47.8 mmHg (35.0-45.0); Total Hemoglobin 11.1 g/dL (12.0-18.0); pH ABG 7.387 (7.350-7.450)
[2021-03-22 14:09] LABS: Device NASAL CANNULA; Liters per Minute 2.5 LPM; Modified Allen's Test Pass; Site Drawn RIGHT RADIAL
[2021-03-22 14:14] LABS: Basophils Absolute Auto 0.1 K/mm3 (0.0-0.1); Basophils Percent Auto 0.8 % (0.2-1.2); Eosinophils Absolute Auto 0.1 K/mm3 (0-0.3); Eosinophils Percent Auto 1.2 % (0-4.4); Hematocrit 37.5 % (37.0-47.0); Immature Granulocyte Absolute 0.04 K/mm3 (0.00-0.031); Immature Granulocyte Percent A 0.4 % (0-0.5); Lymphocytes Absolute Auto 1.13 K/mm3 (0.9-3.2); Lymphocytes Percent Auto 11.3 % (18.3-44.2); Mean Corpuscular HGB Conc 29.3 g/dl (32-36); Mean Corpuscular Hemoglobin 26.4 pg (26-34); Mean Corpuscular Volume 90.1 fl (80-100); Mean Platelet Volume 9.1 fl (7.4-10.4); Monocytes Absolute Auto 0.7 K/mm3 (0.1-0.6); Monocytes Percent Auto 6.6 % (2.6-8.5); Neutrophils Percent Auto 79.7 % (45.5-73.1); Platelet Count Result 354 k/mm3 (150-375); Red Blood Count 4.16 M/mm3 (4.2-5.4)
[2021-03-22 14:28] LABS: Add Urine Microscopic? YES; Appearance Urine Cloudy (Clear); Bacteria Urine Trace /hpf; Bilirubin Urine Negative (Negative); Blood Urine Negative (Negative); Color Urine Yellow (Yellow); Glucose Urine UA Negative (Negative); Ketones Urine Negative (Negative); Leukocyte Esterase Ur 2+ LEU/UL (Negative); Mucus Urine Rare /lpf; Nitrate Urine Positive (Negative); Protein Urine 1+ mg/dL (Negative); RBC Urine 0-2 /hpf (0-2); Specific Grav Ur 1.021 (1.001-1.035); Squamous Epithelial Cell Urine Many /hpf (Few); Urobilinogen Urine Negative mg/dL (<2.0); WBC Urine 16-20 /hpf
[2021-03-22 14:31] LABS: Alanine Aminotransferase 25 U/L (4-35); Albumin Level 4.3 g/dL (3.5-5.1); Alkaline Phosphatase 157 U/L (38-126); Anion Gap 7 mmol/L (8-16); Aspartate Amino Transferase 46 U/L (14-36); Bilirubin,Total 0.6 mg/dL (0.2-1.3); Blood Urea Nitrogen 13 mg/dL (7-17); Calcium 9.4 mg/dL (8.4-10.2); Carbon Dioxide 31 mmol/L (22-30); Chloride 104 mmol/L (98-107); Estimated CRCL calculation 93 ml/min; Estimated Glomerular Filt Rate > 60; Glucose 127 mg/dL (65-105); INR 1.1; Prothrombin Time 14.4 Seconds (11.1-14.7); Sodium 142 mmol/L (137-145)
[2021-03-22 14:32] LABS: Lactic Acid Reflex 1.7 mmol/L (0.7-2.1); Lipase 31 U/L (23-300); Partial Thromboplastin Time 31.2 SECONDS (22.3-36.8)
[2021-03-22 14:40] LABS: NT Pro B Type Natriuretic Pept 1610 pg/mL (5-100)
[2021-03-22] MEDS: hydrALAZINE HCL 20 MG/ML VIAL IV PUSH (14:45)
[2021-03-22 14:46] LABS: Troponin I 0.035 ng/mL (0.000-0.034)
[2021-03-22] MEDS: FUROSEMIDE INJ 40 MG/4 ML VIAL IV PUSH (16:39)
[2021-03-22] MEDS: HYDROcodone/acetaminophen (*CRX) 10-325 MG TABLET 1 TAB PO (20:42)
--- NOTE | 2021-03-22 21:52 | PC.NURSE ---
This patient, Cheyenne Sawyer, was admitted to 2 Medical Room 249-01. Patient/family oriented to hospital policies and general routines including ID bracelet, bed and alarms, visiting hours, pain management, procedures, bathroom and other care routines, personal items, smoking policy, room service/diet, and visiting hours. Information on how to activate the Rapid Response Team has been discussed. Patient/Family are encouraged to report perceived risks to care and to ask questions if they do not understand what they are told or what they should do.
--- NOTE | 2021-03-22 23:36 | PM.IMHP ---
H&P: HPI History of Present Illness Date/Time: 03/22/21 23:36 this is a 78 year old female patient who lives at home by herself. She has a history of having COPD and chronic hypoxia. The patient typically wears oxygen at 2.5 L and increase it up to 3 L now. The patient has not been feeling well for weak. The nurse told me that the patient took herself off of her diuretics because she does not want to get up and urinate so much. Also the nurse explained to me that the patient was excoriated under her breast and her [place] area. The patient had been at [facility] at 1 time for 6 weeks and the patient stated that she was kicked out of the [facility]. She said she lives home alone and that her grandson comes over and helps her. The patient was unable to stand today and she was very weak. She was having some abdominal pain and she had increased swelling to abdomen and lower extremities. The patient denied falling today but is very weak. I got her up to the side of the bed and then back to the bed she became very wheezy and short of breath. Chest x-ray was read as mild atelectasis in left midline zone cardiomegaly CT of the abdomen pelvis extensive fatty infiltrate subcutaneous fluid anterior abdomen wall inferiorly suspicious for cellulitis. Possible cirrhosis. Cardiomegaly. The patient was started on Rocephin For possibility of UTI. Patient was is created to her abdomen and under her breast. Most likely fungal. I changed her to Zosyn to cover for urine and UTI. Patient is being admitted for observation status on the date of service of 03/22/2021 Chief Complaint: Shortness of breath Review of Systems Review of Systems: All systems reviewed & are unremarkable except as noted in HPI and below Constitutional: Constitutional: Reports as per HPI and Reports no additional constitutional complaints Eyes: Eyes: Reports as per HPI and Reports no additional eye complaints ENT: Reports system reviewed and no additional complaints, except as documented and Reports Normal hearing present Cardiovascular: Cardiovascular: Reports no additional cardiovascular complaints Respiratory: Respiratory: Reports no additional respiratory complaints and Reports no additional respiratory complaints Gastrointestinal: Gastrointestinal: Reports as per HPI and Reports no additional gastrointestinal complaints Musculoskeletal: Musculoskeletal: Reports no additional musculoskeletal complaints Integumentary/Breasts: Skin/Breast: Reports system reviewed and no additional complaints, except as docu and Reports as per HPI Neurologic: Reports system reviewed and no additional complaints, except as documented, Reports as per HPI and Reports Normal hearing present Psychiatric: Psychiatric: Reports no additional psychiatric complaints and Reports as per HPI Endocrine: Endocrine: Reports no additional endocrine complaints Hematologic/Lymphatic: Hematologic/Lymphatic: Reports no additional hematologic/lymphatic complaints Allergic/Immunologic: Allergic/Immunologic: Reports no additional allergic/immunologic complaints [facility] [place] Past Medical History Medical History Angina at rest Anxiety Arthritis Asthma Benign colon polyp Benign essential tremor Bronchitis Chronic atrial fibrillation Chronic diastolic congestive heart failure Chronic pain Chronic pain disorder Chronic pain syndrome Due to chronic back and neck pain. She is on long-term opiate therapy. Chronic respiratory failure with hypoxia On 2.5 liters nasal cannula. COPD (chronic obstructive pulmonary disease) Depression DVT (deep venous thrombosis) Emphysema lung Fibromyalgia MYKEL (generalized anxiety disorder) GERD (gastroesophageal reflux disease) History of tobacco use Hypertension Inguinal hernia ALBERTO (obstructive sleep apnea) Osteoporosis Peripheral neuropathy Pneumonia Seasonal allergies Severe pulmonary arterial systolic hypertension RV
[2021-03-23] VITALS (16 sets, daily range): BP systolic 125–150; BP diastolic 53–76; PULSE 73–98; RESP 18–22; TEMP 36–36.4; O2SAT 94–99
[2021-03-23] MEDS: carvediloL 12.5 MG TABLET PO ×3 (00:07→20:36)
[2021-03-23] MEDS: ALBUTEROL SULFATE NEB 2.5 MG/3 ML INH 1.25 MG INHALATION (00:07)
[2021-03-23] MEDS: POTASSIUM CHLORIDE 20 MEQ PACKET (FOR LIQUID) 40 MEQ PO (00:08)
[2021-03-23] MEDS: HYDROcodone/acetaminophen (*CRX) 10-325 MG TABLET 1 TAB PO ×3 (03:48→20:53)
[2021-03-23 05:46] LABS: Basophils Absolute Auto 0.1 K/mm3 (0.0-0.1); Eosinophils Absolute Auto 0.1 K/mm3 (0-0.3); Eosinophils Percent Auto 1.8 % (0-4.4); Hematocrit 33.3 % (37.0-47.0); Hemoglobin 10.1 g/dL (12.0-15.0); Immature Granulocyte Absolute 0.02 K/mm3 (0.00-0.031); Immature Granulocyte Percent A 0.3 % (0-0.5); Lymphocytes Absolute Auto 0.96 K/mm3 (0.9-3.2); Lymphocytes Percent Auto 13.1 % (18.3-44.2); Mean Corpuscular HGB Conc 30.3 g/dl (32-36); Mean Corpuscular Hemoglobin 26.4 pg (26-34); Mean Corpuscular Volume 87.2 fl (80-100); Mean Platelet Volume 8.7 fl (7.4-10.4); Monocytes Absolute Auto 0.6 K/mm3 (0.1-0.6); Monocytes Percent Auto 7.6 % (2.6-8.5); Neutrophils Absolute Auto 5.6 K/mm3 (1.3-6.7); Neutrophils Percent Auto 76.2 % (45.5-73.1); Platelet Count Result 343 k/mm3 (150-375); Red Blood Count 3.82 M/mm3 (4.2-5.4); Red Cell Distribution Width 16.7 % (11.5-14.5); White Blood Count 7.3 K/mm3 (4.5-10.0)
[2021-03-23 06:07] LABS: Alanine Aminotransferase 44 U/L (4-35); Albumin Level 3.9 g/dL (3.5-5.1); Alkaline Phosphatase 154 U/L (38-126); Anion Gap 4 mmol/L (8-16); Aspartate Amino Transferase 75 U/L (14-36); Bilirubin,Total 0.5 mg/dL (0.2-1.3); Blood Urea Nitrogen 9 mg/dL (7-17); Calcium 8.8 mg/dL (8.4-10.2); Carbon Dioxide 35 mmol/L (22-30); Chloride 103 mmol/L (98-107); Estimated CRCL calculation 98 ml/min; Estimated Glomerular Filt Rate > 60; Glucose 133 mg/dL (65-105); Potassium 3.3 mmol/L (3.4-5.0); Sodium 142 mmol/L (137-145)
[2021-03-23] MEDS: POTASSIUM CHLORIDE 20 MEQ TABLET.ER PO (08:14)
[2021-03-23] MEDS: MELOXICAM 7.5 MG TABLET 15 MG PO (08:14)
[2021-03-23] MEDS: hydrALAZINE 10 MG TABLET PO ×2 (08:14→16:46)
[2021-03-23] MEDS: METOPROLOL SUCCINATE EXT REL 12.5 MG TABCR PO (08:15)
[2021-03-23] MEDS: FUROSEMIDE 40 MG TABLET PO (08:15)
[2021-03-23] MEDS: APIXABAN 5 MG TABLET PO ×2 (08:15→16:46)
[2021-03-23] MEDS: LOSARTAN POTASSIUM 100 MG TABLET PO (08:15)
[2021-03-23] MEDS: SPIRONOLACTONE 25 MG TABLET PO (08:15)
--- NOTE | 2021-03-23 09:54 | PCPTNOTE ---
MV PT; 9:54am. Patient adamantly refuses therapy; states she doesn't want to do anything despite multiple attempts to explain why therapy is necessary. artist's manager for discharge notified of situation. Will attempt again later.
--- NOTE | 2021-03-23 13:27 | P.PNIM_ITS ---
Progress Note: A&P Assessment and Plan (1) Acute UTI: Code(s): N39.0 - Urinary tract infection, site not specified Status: Acute Assessment and Plan: Urinalysis abnormal at presentation. She denies any significant urinary symptoms. She is afebrile. No leukocytosis. * Continue Rocephin * Urine culture is pending. Await results and tailor antibiotics accordingly. * Blood cultures pending (2) Weakness: Code(s): R53.1 - Weakness Status: Acute Assessment and Plan: She has had difficulty walking. Suspect this is related to overall physical deconditioning, and likely worsened by suspected acute infection. * Appreciate PT/OT eval * Care coordination following. It looks as though she wishes to go to SNF for rehab * Fall precautions (3) Candidiasis: Code(s): B37.9 - Candidiasis, unspecified Status: Acute Assessment and Plan: Under left breast and left pannus. No evidence to suggest acute bacterial i nfection. * Change to tolnaftate powder * Supportive care to include moisture wicking with pillow cases under pannus and breast. * I will ask wound care team to evaluate tomorrow for any further recomme ndations (4) Atrial fibrillation: Code(s): I48.91 - Unspecified atrial fibrillation Status: Acute Assessment and Plan: Telemetry reviewed. She is in atrial fibrillation with rate controlled * Continue Eliquis and Coreg * Discontinue telemetry (5) Anemia: Code(s): D64.9 - Anemia, unspecified Status: Acute Assessment and Plan: Labs are consistent with baseline. No evidence of acute bleeding * Monitor H&H (6) Chronic respiratory failure with hypoxia: Code(s): J96.11 - Chronic respiratory failure with hypoxia Status: Acute Assessment and Plan: She uses 2.5-3 L supplemental O2 at home. Suspect this is multifactorial to include COPD, asthma, ALBERTO. CXR with no acute findings. She is maintaining adequate oxygenation on 3 L * Continue supplemental oxygen with goal saturation 90% or above * CPAP at night (7) Hypertension: Qualifiers: Hypertension type: essential hypertension Qualified Code(s): I10 - Essential (primary) hypertension Code(s): I10 - Essential (primary) hypertension Status: Acute Assessment and Plan: Blood pressures were elevated upon presentation up to 251/87. This has improved with resuming her home antihypertensives. Last BP 140/73. * Continue carvedilol, losartan, spironolactone, and hydralazine (8) Chronic diastolic congestive heart failure: Code(s): I50.32 - Chronic diastolic (congestive) heart failure Status: Acute Assessment and Plan: Clinically compensated. BNP is only mildly elevated given her age. She appears euvolemic. * Continue Lasix and spironolactone * Monitor volume status closely * Check daily weights * Heart healthy diet (9) Hypokalemia: Code(s): E87.6 - Hypokalemia Status: Acute Assessment and Plan: Potassium slightly decreased. May be related to diuresis with Lasix, despite use of spironolactone. * Supplement with 20 mEq KCL * Monitor potassium levels closely with daily BMP. Cautious use with potassium supplementation given concurrent spironolactone use (10) Elevated liver enzymes: Code(s): R74.8 - Abnormal levels of other serum enzymes Status: Acute Assessment and Plan:
--- NOTE | 2021-03-23 13:27 | PM.IMPN ---
Progress Note: A&P Assessment and Plan (1) Acute UTI: Code(s): N39.0 - Urinary tract infection, site not specified Status: Acute Assessment and Plan: Urinalysis abnormal at presentation. She denies any significant urinary symptoms. She is afebrile. No leukocytosis. Continue Rocephin Urine culture is pending. Await results and tailor antibiotics accordingly. Blood cultures pending (2) Weakness: Code(s): R53.1 - Weakness Status: Acute Assessment and Plan: She has had difficulty walking. Suspect this is related to overall physical deconditioning, and likely worsened by suspected acute infection. Appreciate PT/OT eval Care coordination following. It looks as though she wishes to go to SNF for rehab Fall precautions (3) Candidiasis: Code(s): B37.9 - Candidiasis, unspecified Status: Acute Assessment and Plan: Under left breast and left pannus. No evidence to suggest acute bacterial infection. Change to tolnaftate powder Supportive care to include moisture wicking with pillow cases under pannus and breast. I will ask wound care team to evaluate tomorrow for any further recommendations (4) Atrial fibrillation: Code(s): I48.91 - Unspecified atrial fibrillation Status: Acute Assessment and Plan: Telemetry reviewed. She is in atrial fibrillation with rate controlled Continue Eliquis and Coreg Discontinue telemetry (5) Anemia: Code(s): D64.9 - Anemia, unspecified Status: Acute Assessment and Plan: Labs are consistent with baseline. No evidence of acute bleeding Monitor H&H (6) Chronic respiratory failure with hypoxia: Code(s): J96.11 - Chronic respiratory failure with hypoxia Status: Acute Assessment and Plan: She uses 2.5-3 L supplemental O2 at home. Suspect this is multifactorial to include COPD, asthma, ALBERTO. CXR with no acute findings. She is maintaining adequate oxygenation on 3 L Continue supplemental oxygen with goal saturation 90% or above CPAP at night (7) Hypertension: Qualifiers: Hypertension type: essential hypertension Qualified Code(s): I10 - Essential (primary) hypertension Code(s): I10 - Essential (primary) hypertension Status: Acute Assessment and Plan: Blood pressures were elevated upon presentation up to 251/87. This has improved with resuming her home antihypertensives. Last BP 140/73. Continue carvedilol, losartan, spironolactone, and hydralazine (8) Chronic diastolic congestive heart failure: Code(s): I50.32 - Chronic diastolic (congestive) heart failure Status: Acute Assessment and Plan: Clinically compensated. BNP is only mildly elevated given her age. She appears euvolemic. Continue Lasix and spironolactone Monitor volume status closely Check daily weights Heart healthy diet (9) Hypokalemia: Code(s): E87.6 - Hypokalemia Status: Acute Assessment and Plan: Potassium slightly decreased. May be related to diuresis with Lasix, despite use of spironolactone. Supplement with 20 mEq KCL Monitor potassium levels closely with daily BMP. Cautious use with potassium supplementation given concurrent spironolactone use (10) Elevated liver enzymes: Code(s): R74.8 - Abnormal levels of other serum enzymes Status: Acute Assessment and Plan: LFTs are mildly elevated. CT abdomen/pelvis suggests possible cirrhosis. Total bilirubin is within normal limits Will obtain right upper quadrant ultrasound Check hepatitis panel Subjective Date/time seen: 03/23/21 13:28 Interval history: Date of service: 03/23/2021 Cheyenne Sawyer is a 75-year-old female with a history of asthma with COPD, chronic atrial fibrillation on chronic anticoagulation, CHF, type 2 diabetes mellitus, and several other comorbidities who is seen in follow-up for suspec
[2021-03-23 16:38] LABS: Hepatitis B Surface Antigen Negative (Negative)
[2021-03-23 16:43] LABS: HAV RESULT Negative (Negative); Hepatitis B Core IgM Result Negative (Negative)
[2021-03-23] MEDS: TOLNAFTATE 1% POWDER 45 GM BTL 1 APPLIC TOPICAL ×2 (16:45→20:41)
[2021-03-23 16:55] LABS: Hepatitis C Virus Antibody Negative (Negative)
[2021-03-24] VITALS (10 sets, daily range): BP systolic 139–167; BP diastolic 66–80; PULSE 63–79; RESP 16–20; TEMP 36.2–36.6; O2SAT 96–98
[2021-03-24] MEDS: HYDROcodone/acetaminophen (*CRX) 10-325 MG TABLET 1 TAB PO ×3 (05:12→18:52)
[2021-03-24 06:08] LABS: Hematocrit 33.5 % (37.0-47.0); Mean Corpuscular HGB Conc 29.9 g/dl (32-36); Mean Corpuscular Hemoglobin 26.5 pg (26-34); Mean Corpuscular Volume 88.6 fl (80-100); Mean Platelet Volume 9.3 fl (7.4-10.4); Platelet Count Result 337 k/mm3 (150-375); Red Blood Count 3.78 M/mm3 (4.2-5.4); Red Cell Distribution Width 16.8 % (11.5-14.5); White Blood Count 5.7 K/mm3 (4.5-10.0)
[2021-03-24 06:26] LABS: Alanine Aminotransferase 35 U/L (4-35); Albumin Level 3.8 g/dL (3.5-5.1); Alkaline Phosphatase 135 U/L (38-126); Anion Gap 3 mmol/L (8-16); Aspartate Amino Transferase 45 U/L (14-36); Bilirubin,Total 0.3 mg/dL (0.2-1.3); Blood Urea Nitrogen 10 mg/dL (7-17); Calcium 8.6 mg/dL (8.4-10.2); Carbon Dioxide 36 mmol/L (22-30); Chloride 101 mmol/L (98-107); Estimated CRCL calculation 96 ml/min; Estimated Glomerular Filt Rate > 60; Glucose 108 mg/dL (65-105); Potassium 3.2 mmol/L (3.4-5.0); Sodium 140 mmol/L (137-145)
[2021-03-24] MEDS: METOPROLOL SUCCINATE EXT REL 12.5 MG TABCR PO (07:59)
[2021-03-24] MEDS: SPIRONOLACTONE 25 MG TABLET PO (07:59)
[2021-03-24] MEDS: FUROSEMIDE 40 MG TABLET PO (08:00)
[2021-03-24] MEDS: hydrALAZINE 10 MG TABLET PO ×2 (08:00→16:36)
[2021-03-24] MEDS: APIXABAN 5 MG TABLET PO ×2 (08:01→16:36)
[2021-03-24] MEDS: LOSARTAN POTASSIUM 100 MG TABLET PO (08:01)
[2021-03-24] MEDS: POTASSIUM CHLORIDE 20 MEQ TABLET.ER PO (08:01)
[2021-03-24] MEDS: MELOXICAM 7.5 MG TABLET 15 MG PO (08:01)
[2021-03-24] MEDS: carvediloL 12.5 MG TABLET PO ×2 (08:01→20:07)
[2021-03-24] MEDS: TOLNAFTATE 1% POWDER 45 GM BTL 1 APPLIC TOPICAL ×2 (08:02→20:08)
[2021-03-24 09:01] LABS: Hemoglobin A1C 5.9 % (<5.7)
[2021-03-24] MEDS: POTASSIUM CHLORIDE 20 MEQ TABLET PO (11:36)
--- NOTE | 2021-03-24 14:55 | PM.IMPN ---
Progress Note: A&P Assessment and Plan (1) Acute UTI: Code(s): N39.0 - Urinary tract infection, site not specified Status: Acute Assessment and Plan: Urinalysis abnormal at presentation. She is afebrile. No leukocytosis. Urine culture grew >100,000 CFU E coli. Continue Rocephin based on susceptibility report Blood cultures pending. Negative to date. (2) Weakness: Code(s): R53.1 - Weakness Status: Acute Assessment and Plan: She has had difficulty walking. Suspect this is related to overall physical deconditioning, and likely worsened by acute infection. Appreciate PT/OT eval Care coordination following. Initial planning for SNF, however she was not accepted her selective facilities, therefore home health is being arranged. Fall precautions (3) Candidiasis: Code(s): B37.9 - Candidiasis, unspecified Status: Acute Assessment and Plan: Maceration under left breast and left pannus. No evidence to suggest acute bacterial infection. Continue tolnaftate powder Supportive care to include moisture wicking with pillow cases under pannus and breast. (4) Atrial fibrillation: Code(s): I48.91 - Unspecified atrial fibrillation Status: Acute Assessment and Plan: She is in atrial fibrillation and rate is controlled Continue Eliquis and Coreg (5) Anemia: Code(s): D64.9 - Anemia, unspecified Status: Acute Assessment and Plan: Labs are consistent with baseline. No evidence of acute bleeding Monitor H&H (6) Chronic respiratory failure with hypoxia: Code(s): J96.11 - Chronic respiratory failure with hypoxia Status: Acute Assessment and Plan: She uses 2.5-3 L supplemental O2 at home. Suspect this is multifactorial to include COPD, asthma, ALBERTO. CXR with no acute findings. She is maintaining adequate oxygenation on her typical 3 L Continue supplemental oxygen with goal saturation 90% or above CPAP at night (7) Hypertension: Qualifiers: Hypertension type: essential hypertension Qualified Code(s): I10 - Essential (primary) hypertension Code(s): I10 - Essential (primary) hypertension Status: Acute Assessment and Plan: Blood pressures were elevated upon presentation up to 251/87. This has improved with resuming her home antihypertensives. Last BP 147/66. Continue carvedilol, losartan, spironolactone, and hydralazine (8) Chronic diastolic congestive heart failure: Code(s): I50.32 - Chronic diastolic (congestive) heart failure Status: Acute Assessment and Plan: Clinically compensated. BNP is only mildly elevated given her age. She appears euvolemic. Continue Lasix and spironolactone Monitor volume status closely Check daily weights Heart healthy diet (9) Hypokalemia: Code(s): E87.6 - Hypokalemia Status: Acute Assessment and Plan: Potassium slightly decreased at 3.2. Likely related to diuresis with Lasix, despite use of spironolactone. Supplement with 40 mEq KCL Monitor potassium levels closely with daily BMP. Cautious use with potassium supplementation given concurrent spironolactone use (10) Elevated liver enzymes: Code(s): R74.8 - Abnormal levels of other serum enzymes Status: Acute Assessment and Plan: LFTs are mildly elevated. CT abdomen/pelvis suggests possible cirrhosis, though right upper quadrant ultrasound showed normal liver. Total bilirubin is within normal limits. Hepatitis panel negative. Continue to monitor CMP Subjective Date/time seen: 03/24/21 14:55 Interval history: Date of service: 03/24/2021 Cheyenne Sawyer is a 75-year-old female with a history of asthma with COPD, chronic atrial fibrillation on chronic anticoagulation, CHF, type 2 diabetes mellitus, and several other comorbidities who is seen in follow-up for UTI. She is doing okay tod
[2021-03-24] MEDS: ALPRAZolam (*CRX) 0.5 MG TABLET PO ×2 (15:52→23:02)
[2021-03-24 17:40] LABS: SARS-CoV-2 RNA PCR Negative
[2021-03-25] MEDS: HYDROcodone/acetaminophen (*CRX) 10-325 MG TABLET 1 TAB PO ×2 (05:00→11:41)
[2021-03-25 05:25] VITALS: BP 156/51; PULSE 77; RESP 20; TEMP 36.3; O2SAT 97
[2021-03-25 05:42] LABS: Alanine Aminotransferase 26 U/L (4-35); Albumin Level 3.5 g/dL (3.5-5.1); Alkaline Phosphatase 124 U/L (38-126); Anion Gap 3 mmol/L (8-16); Aspartate Amino Transferase 31 U/L (14-36); Bilirubin,Total 0.2 mg/dL (0.2-1.3); Blood Urea Nitrogen 11 mg/dL (7-17); Calcium 8.2 mg/dL (8.4-10.2); Carbon Dioxide 36 mmol/L (22-30); Chloride 99 mmol/L (98-107); Estimated CRCL calculation 96 ml/min; Estimated Glomerular Filt Rate > 60; Glucose 100 mg/dL (65-105); Potassium 3.2 mmol/L (3.4-5.0); Sodium 138 mmol/L (137-145)
[2021-03-25 08:12] VITALS: O2SAT 97
[2021-03-25] MEDS: MELOXICAM 7.5 MG TABLET 15 MG PO (08:13)
[2021-03-25 08:14] VITALS: PULSE 77
[2021-03-25] MEDS: APIXABAN 5 MG TABLET PO (08:14)
[2021-03-25] MEDS: carvediloL 12.5 MG TABLET PO (08:14)
[2021-03-25] MEDS: POTASSIUM CHLORIDE 20 MEQ TABLET PO (08:14)
[2021-03-25] MEDS: hydrALAZINE 10 MG TABLET PO (08:14)
[2021-03-25] MEDS: TOLNAFTATE 1% POWDER 45 GM BTL 1 APPLIC TOPICAL (08:14)
[2021-03-25] MEDS: FUROSEMIDE 40 MG TABLET PO (08:14)
[2021-03-25] MEDS: SPIRONOLACTONE 25 MG TABLET PO (08:14)
[2021-03-25] MEDS: LOSARTAN POTASSIUM 100 MG TABLET PO (08:14)
[2021-03-25] MEDS: METOPROLOL SUCCINATE EXT REL 12.5 MG TABCR PO (08:14)
[2021-03-25] MEDS: POTASSIUM CHLORIDE 20 MEQ TABLET.ER PO (08:19)
[2021-03-25] MEDS: ALPRAZolam (*CRX) 0.5 MG TABLET PO (08:27)
--- NOTE | 2021-03-25 10:50 | PCPTNOTE ---
Attempted therapy session, Pt declined due to being discharged and going home as soon as her daughter arrives. Continue per POC.
--- NOTE | 2021-03-25 11:17 | PM.DS ---
DS: Admitting Diagnosis Admitting Diagnosis Admitting Diagnosis: UTI DS: Discharge Diagnosis Discharge Diagnosis (1) Acute UTI: Code(s): N39.0 - Urinary tract infection, site not specified Status: Acute Assessment and Plan: Urinalysis abnormal at presentation. She remained afebrile and without leukocytosis. Urine culture grew >100,000 CFU E coli. She received IV Rocephin and was transition to p.o. cefdinir to complete a 7 day course of antibiotics. Blood cultures negative to date and final cultures will be monitored. (2) Weakness: Code(s): R53.1 - Weakness Status: Acute Assessment and Plan: She has had difficulty walking. Suspect this is related to overall physical deconditioning and worsened by acute infection. She was evaluated by PT/OT will continue therapy with home health. Fall precautions discussed at length. (3) Candidiasis: Code(s): B37.9 - Candidiasis, unspecified Status: Acute Assessment and Plan: Maceration under left breast and left pannus. No evidence to suggest acute bacterial infection. She was started on tolnaftate powder which should be applied 2 times per day. Continue with moisture wicking with pillow cases under pannus and breast. (4) Atrial fibrillation: Code(s): I48.91 - Unspecified atrial fibrillation Status: Acute Assessment and Plan: She is in atrial fibrillation and rate is controlled. Continue Eliquis and Coreg (5) Anemia: Code(s): D64.9 - Anemia, unspecified Status: Acute Assessment and Plan: Labs were consistent with baseline. No evidence of acute bleeding (6) Chronic respiratory failure with hypoxia: Code(s): J96.11 - Chronic respiratory failure with hypoxia Status: Acute Assessment and Plan: She uses 2.5-3 L supplemental O2 at home. Suspect this is multifactorial to include COPD, asthma, ALBERTO. CXR with no acute findings. She maintained adequate oxygenation on her typical 3 L. Continue CPAP at night (7) Hypertension: Qualifiers: Hypertension type: essential hypertension Qualified Code(s): I10 - Essential (primary) hypertension Code(s): I10 - Essential (primary) hypertension Status: Acute Assessment and Plan: Blood pressures were elevated upon presentation up to 251/87. This improved with resuming her home antihypertensives and BP stabilized. Continue carvedilol, losartan, spironolactone, and hydralazine (8) Chronic diastolic congestive heart failure: Code(s): I50.32 - Chronic diastolic (congestive) heart failure Status: Acute Assessment and Plan: Clinically compensated. BNP only mildly elevated given her age. She was euvolemic. Continue Lasix and spironolactone. Her totally diet discussed (9) Hypokalemia: Code(s): E87.6 - Hypokalemia Status: Acute Assessment and Plan: Potassium was slightly low despite supplementation. Likely related to diuresis with Lasix, despite use of spironolactone. Started on 20 mEq KCL daily repeat BMP in 1 week. Cautious use with potassium supplementation given concurrent spironolactone use (10) Elevated liver enzymes: Code(s): R74.8 - Abnormal levels of other serum enzymes Status: Acute Assessment and Plan: Resolved. LFTs were mildly elevated. CT abdomen/pelvis suggested possible cirrhosis, though right upper quadrant ultrasound showed normal liver. Total bilirubin within normal limits. Hepatitis panel negative. DS: Summary Hospital Course Reason for hospitalization: Weakness Hospital Course: Date of admission: 03/22/2021 Date of discharge: 03/25/2021 Cheyenne Sawyer is a 75-year-old female with a history of asthma with COPD, chronic atrial fibrillation on chronic anticoagulation, CHF, type 2 diabetes mellitus, and several other comorbidities who presented to the emergency department on 03/22/2021 with complaints o
== END 2021-03-25 12:00 | disposition home health service (06) | DRG 689 ==
LOC: ANHED 13:39 → ANH2MED 17:05
PROVIDERS: Emergency Medicine; Physician Assistant; Admitting Provider Internal Medicine; Emergency Provider General Practice; PCP Family Medicine; Visit Provider Internal Medicine
DX: N39.0 Urinary tract infection, site not specified (principal); I50.33 Acute on chronic diastolic (congestive) heart failure; I48.20 Chronic atrial fibrillation, unspecified; J96.11 Chronic respiratory failure with hypoxia; L03.90 Cellulitis, unspecified; J44.9 Chronic obstructive pulmonary disease, unspecified; Z99.81 Dependence on supplemental oxygen; M79.7 Fibromyalgia; D64.9 Anemia, unspecified; I11.0 Hypertensive heart disease with heart failure; E11.43 Type 2 diabetes mellitus with diabetic autonomic (poly)neuropathy; B37.2 Candidiasis of skin and nail; B96.20 Unspecified Escherichia coli [E. coli] as the cause of diseases classified elsewhere
CPT/HCPCS: 36415; 36600; 51701; 70450; 71045; 74177; 76705; 80053; 80074; 81001; 82375; 82805; 83036; 83050; 83605; 83690; 83735; 83880; 84484; 85025; 85027; 85610; 85730; 87040; 87077; 87086; 87088; 87186; 93005; 94640; 96365; 96366; 96367; 96368; 96375; 97110; 97116; 97162; 97165; 97530; 97535; 99285; A9270; C9803; G0378; J0131; J0360; J0696; J1940; J2543; Q9967; U0003; U0005

== ENCOUNTER 2021-06-14 22:20 | Inpatient (IN) | payer MEDICARE, OTHER, SELFPAY ==
--- NOTE | ~2021-06-14 | XR_ITS ---
XR chest 1V portable DATE: 06/14/2021 23:09 INDICATION: Dyspnea for one week. History of congestive heart failure and hypertension. TECHNIQUE: Portable upright AP chest views on 06/14/2021 at 2305 hours COMPARISON: 03/22/2021 AP chest FINDINGS: There is cardiomegaly. There is pulmonary vascular congestion and redistribution. The findi ngs suggest mild congestive heart failure. Aortic arch calcification. No pulmonary consolidation is evident. Mild infiltrate or atelectasis is suggested in the mid and low er lung zones. No pleural effusion or pneumothorax. Osteopenia. IMPRESSION: Cardiomegaly and pulmonary vascular congestion and redistribution suggesting congestive h eart failure Mild infiltrate or atelectasis in the mid and lower lung zones, possibly due to pulmonary edema. Pneu monia is not excluded. Reviewed, dictated and finalized at location A. IMPRESSION: Cardiomegaly and pulmonary vascular congestion and redistribution s uggesting congestive heart failure Mild infiltrate or atelectasis in the mid and lower lung zones, possibly due to pulmonary edema. Pneumonia is not excluded.
[2021-06-14 22:30] VITALS: BP 162/83; RESP 20; TEMP 37; O2SAT 94
--- NOTE | 2021-06-14 22:47 | ECG_ITS ---
Measurements Intervals [place] Rate: 53 P: FL: 0 QRS: 263 QRSD: 116 T: -13 QT: 417 QTc: 394 Interpretive Statements ATRIAL FIBRILLATION RIGHT AXIS DEVIATION IVCD, WITH FEATURES OF BOTH RBBB/LBBB LOW QRS VOLTAGE- PRECORDIAL LEADS ABNORMAL ECG Electronically Signed On 06-15-2021 6:31:20 CDT by Derian Tineo D.O.
[2021-06-14] MEDS: ALBUTEROL SULFATE NEB 2.5 MG/0.5 ML INH 5 MG INHALATION (23:10)
[2021-06-14] MEDS: IPRATROPIUM BR 0.02% INH SOLN 0.5 MG/2.5 ML VIAL INHALATION (23:10)
[2021-06-14 23:11] VITALS: PULSE 81; RESP 16
[2021-06-14 23:11] LABS: Basophils Absolute Auto 0.1 K/mm3 (0.0-0.1); Basophils Percent Auto 1.1 % (0.2-1.2); Eosinophils Absolute Auto 0.2 K/mm3 (0-0.3); Eosinophils Percent Auto 2.4 % (0-4.4); Hematocrit 34.9 % (37.0-47.0); Immature Granulocyte Absolute 0.03 K/mm3 (0.00-0.031); Immature Granulocyte Percent A 0.5 % (0-0.5); Lymphocytes Absolute Auto 1.31 K/mm3 (0.9-3.2); Lymphocytes Percent Auto 20.8 % (18.3-44.2); Mean Corpuscular HGB Conc 28.7 g/dl (32-36); Mean Corpuscular Volume 90.6 fl (80-100); Mean Platelet Volume 8.7 fl (7.4-10.4); Monocytes Absolute Auto 0.6 K/mm3 (0.1-0.6); Monocytes Percent Auto 8.9 % (2.6-8.5); Neutrophils Absolute Auto 4.2 K/mm3 (1.3-6.7); Neutrophils Percent Auto 66.3 % (45.5-73.1); Platelet Count Result 318 k/mm3 (150-375); Red Blood Count 3.85 M/mm3 (4.2-5.4); Red Cell Distribution Width 16.3 % (11.5-14.5); White Blood Count 6.3 K/mm3 (4.5-10.0)
[2021-06-14 23:18] VITALS: PULSE 73; RESP 16
[2021-06-14 23:20] LABS: Hypochromasia 2+ (NORMAL); Ovalocytes 1+ (NORMAL); Platelet Estimate Adequate (Adequate)
[2021-06-14 23:21] LABS: Alanine Aminotransferase 17 U/L (4-35); Albumin Level 4.2 g/dL (3.5-5.1); Alkaline Phosphatase 142 U/L (38-126); Anion Gap 5 mmol/L (8-16); Aspartate Amino Transferase 30 U/L (14-36); Bilirubin,Total 0.2 mg/dL (0.2-1.3); Blood Urea Nitrogen 14 mg/dL (7-17); Calcium 9.1 mg/dL (8.4-10.2); Carbon Dioxide 31 mmol/L (22-30); Chloride 102 mmol/L (98-107); Estimated Glomerular Filt Rate > 60; Glucose 99 mg/dL (65-110); Potassium 3.2 mmol/L (3.4-5.0); Prothrombin Time 13.5 Seconds (11.1-14.7); Sodium 138 mmol/L (137-145)
[2021-06-14 23:22] LABS: Partial Thromboplastin Time 31.2 SECONDS (22.3-36.8)
[2021-06-14 23:33] LABS: NT Pro B Type Natriuretic Pept 2060 pg/mL (5-100); Troponin I < 0.012 ng/mL (0.000-0.034)
[2021-06-14 23:49] VITALS: BP 181/93; PULSE 70; RESP 18; O2SAT 100
[2021-06-14] MEDS: methylPREDNISolone SOD SUCC 125 MG VIAL IV PUSH (23:57)
[2021-06-14] MEDS: FUROSEMIDE INJ 40 MG/4 ML VIAL IV PUSH (23:57)
[2021-06-15] VITALS (25 sets, daily range): BP systolic 159–177; BP diastolic 67–81; PULSE 71–100; RESP 14–20; TEMP 36.6–36.7; O2SAT 93–99; BMI 45.6
--- NOTE | 2021-06-15 00:28 | ED.GENADULT ---
HPI - General Adult General Chief complaint: Shortness of Breath/Dyspnea Stated complaint: copd exac Time Seen by Provider: 06/14/21 22:35 History of Present Illness HPI narrative: Patient 75-year-old female presents emerged part with chief complaint of shortness of breath. Patient reports that she has been progressively more short of breath and requiring extra oxygen. Patient states that she has been having shortness of breath with exertion and notes she has had increasing peripheral edema. Patient denies fever denies chills denies cough reports that she has history of COPD and CHF. Patient states this feels like an exacerbation of both her CHF and COPD. Patient reports this feels similar to where she is had to be admitted before to the hospital. Related Data Home Medications Medication Instructions Recorded Confirmed hydrocodone-acetaminophen 1 tablet PO Q6H PRN 05/26/20 06/01/21 meloxicam 15 mg PO DAILY 01/13/21 06/01/21 Allergies Allergy/AdvReac Type Severity Reaction Status Date / Time No Known Allergies Allergy Unknown Verified 06/01/21 15:11 Review of Systems Review of Systems: A 10 system review of systems was completed on the patient and is negative except for what is stated in the HPI. Nursing and ancillary documentation was reviewed. [facility] Past Medical History Medical History Angina at rest Anxiety Arthritis Asthma Benign colon polyp Benign essential tremor Bronchitis Chronic atrial fibrillation Chronic diastolic congestive heart failure Chronic pain Chronic pain disorder Chronic pain syndrome Due to chronic back and neck pain. She is on long-term opiate therapy. Chronic respiratory failure Chronic respiratory failure with hypoxia On 2.5 liters nasal cannula. COPD (chronic obstructive pulmonary disease) Depression DVT (deep venous thrombosis) Emphysema lung Fibromyalgia MYKEL (generalized anxiety disorder) GERD (gastroesophageal reflux disease) History of tobacco use Hypertension Inguinal hernia ALBERTO (obstructive sleep apnea) Osteoporosis Peripheral neuropathy Pneumonia Seasonal allergies Severe pulmonary arterial systolic hypertension RVSP of 63 millimeters of mercury on echocardiogram in June 2019. Takotsubo cardiomyopathy In May 2019 with ejection fraction as low as 25 to 30%. EF improved to 65% on echo in June 2019. Type 2 diabetes mellitus with autonomic neuropathy Uterine cancer UTI (urinary tract infection) Surgical History Surgical History History of 2 sections History of cardiac cath History of cholecystectomy History of dilatation and curettage History of gastric bypass History of incisional hernia repair History of right knee joint replacement History of surgical removal of ganglion cyst History of total abdominal hysterectomy and bilateral salpingo-oophorectomy For uterine cancer. History of tubal ligation Hx of section Status post exploratory laparotomy With adhesiolysis. Family History Family History Mother Diabetes mellitus Acute myocardial infarction Family history of chronic obstructive pulmonary disease Family history of heart disease in male family member before age 55 Patient's mother is Father Family history of arthritis Family history of emphysema Family history of lung disease Patient's father is Sibling Family history of malignant neoplasm of uterus Family history of malignant neoplasm of ovary Patient's sister is in good health Family history of malignant neoplasm Patient's sister is Other Family history of cardiovascular disease Family history of osteoarthritis Hypertension Social History Social History (Reviewed 06/15/21 @ 00:34 by Cuong Chopra
--- NOTE | 2021-06-15 01:54 | ADMGEN ---
This patient, Cheyenne Sawyer, was admitted to [facility] Surg Room 313-01. Patient/family oriented to hospital policies and general routines including ID bracelet, bed and alarms, visiting hours, pain management, procedures, bathroom and other care routines, personal items, smoking policy, room service/diet, and visiting hours. Information on how to activate the Rapid Response Team has been discussed. Patient/Family are encouraged to report perceived risks to care and to ask questions if they do not understand what they are told or what they should do.
--- NOTE | 2021-06-15 02:14 | PM.IMHP ---
H&P: HPI History of Present Illness Date/Time: 06/15/21 02:14 Chief Complaint: Shortness of breath Narrative: This is a 75-year-old female with past medical history significant for COPD/emphysema, hypertension, congestive heart failure, atrial fibrillation. Patient comes to the emergency room due to worsening shortness of breath has been going on for the last week or so. She denies any cough or sputum production, no fevers no rigors no chills, no nausea no vomiting no diarrhea no abdominal pain, no leg swelling. She was at home when she all of a sudden very short of breath took 1of her Xanax but did not help. Preliminary workup was significant chest x-ray with infiltrates. In emergency room patient received breathing treatments states that she feels much better. Review of Systems Review of Systems: Worsening shortness of breath for a week or so Constitutional: Constitutional: Denies chills, Denies fever(s), Denies lethargy and Denies malaise Eyes: Eyes: Denies change in vision ENT: Denies dysphagia, Denies vertigo, Denies dizziness, Denies nasal congestion, Denies nasal discharge, Denies nasal obstruction and Denies odynophagia Cardiovascular: Cardiovascular: Denies edema, Denies irregular heart rhythm, Denies lightheadedness, Denies radiating jaw, neck or arm pain, Denies palpitations, Denies dyspnea on exertion and Denies orthopnea Respiratory: Respiratory: Denies cough and Reports dyspnea Gastrointestinal: Gastrointestinal: Denies abdominal pain, Denies diarrhea, Denies nausea and Denies vomiting Genitourinary: Genitourinary: Reports no additional female genitourinary complaints Musculoskeletal: Musculoskeletal: Reports no additional musculoskeletal complaints Integumentary/Breasts: Skin/Breast: Reports system reviewed and no additional complaints, except as docu and Denies rash Neurologic: Denies dizziness, Denies focal weakness and Denies Sensory deficit (Neuro) Psychiatric: Psychiatric: Reports no additional psychiatric complaints Endocrine: Endocrine: Reports no additional endocrine complaints Hematologic/Lymphatic: Hematologic/Lymphatic: Reports no additional hematologic/lymphatic complaints Allergic/Immunologic: Allergic/Immunologic: Reports no additional allergic/immunologic complaints PMFSH Past Medical History Medical History Angina at rest Anxiety Arthritis Asthma Benign colon polyp Benign essential tremor Bronchitis Chronic atrial fibrillation Chronic diastolic congestive heart failure Chronic pain Chronic pain disorder Chronic pain syndrome Due to chronic back and neck pain. She is on long-term opiate therapy. Chronic respiratory failure Chronic respiratory failure with hypoxia On 2.5 liters nasal cannula. COPD (chronic obstructive pulmonary disease) Depression DVT (deep venous thrombosis) Emphysema lung Fibromyalgia MYKEL (generalized anxiety disorder) GERD (gastroesophageal reflux disease) History of tobacco use Hypertension Inguinal hernia ALBERTO (obstructive sleep apnea) Osteoporosis Peripheral neuropathy Pneumonia Seasonal allergies Severe pulmonary arterial systolic hypertension RVSP of 63 millimeters of mercury on echocardiogram in June 2019. Takotsubo cardiomyopathy In May 2019 with ejection fraction as low as 25 to 30%. EF improved to 65% on echo in June 2019. Type 2 diabetes mellitus with autonomic neuropathy Uterine cancer UTI (urinary tract infection) Surgical History Surgical History History of 2 sections History of cardiac cath History of cholecystectomy History of dilatation and curettage History of gastric bypass History of incisional hernia repair History of right knee joint replacement History of surgical removal of ganglion cyst History of total abdominal hysterectomy and bilateral salpingo-oophorectomy For uterine cancer. Hist
[2021-06-15 02:34] LABS: Troponin I < 0.012 ng/mL (0.000-0.034)
[2021-06-15] MEDS: IPRATROPIUM BR 0.02% INH SOLN 0.5 MG/2.5 ML VIAL INHALATION ×4 (03:35→20:35)
[2021-06-15] MEDS: ALBUTEROL SULFATE NEB 2.5 MG/0.5 ML INH 5 MG INHALATION ×4 (03:35→20:35)
[2021-06-15] MEDS: MORPHINE SULFATE (*CRX) 2 MG/ML INJ 1 MG IV PUSH (04:06)
[2021-06-15] MEDS: methylPREDNISolone SOD SUCC 125 MG VIAL 60 MG IV PUSH (05:46)
[2021-06-15 07:06] LABS: Troponin I < 0.012 ng/mL (0.000-0.034)
[2021-06-15 07:54] LABS: Anion Gap 7 mmol/L (8-16); Blood Urea Nitrogen 11 mg/dL (7-17); Calcium 9.5 mg/dL (8.4-10.2); Carbon Dioxide 32 mmol/L (22-30); Chloride 98 mmol/L (98-107); Estimated CRCL calculation 111 ml/min; Estimated Glomerular Filt Rate > 60; Glucose 210 mg/dL (65-110); Potassium 3.2 mmol/L (3.4-5.0); Sodium 137 mmol/L (137-145)
[2021-06-15] MEDS: POTASSIUM CHLORIDE 20 MEQ TABLET 40 MEQ PO (08:19)
[2021-06-15] MEDS: FUROSEMIDE INJ 40 MG/4 ML VIAL IV PUSH (08:23)
[2021-06-15] MEDS: HYDROcodone/acetaminophen (*CRX) 10-325 MG TABLET 1 TAB PO ×3 (10:29→22:40)
[2021-06-15] MEDS: ALPRAZolam (*CRX) 0.5 MG TABLET PO ×3 (10:30→22:40)
[2021-06-15] MEDS: SPIRONOLACTONE 25 MG TABLET PO (10:34)
[2021-06-15] MEDS: hydrALAZINE 10 MG TABLET PO ×2 (10:34→16:39)
[2021-06-15] MEDS: APIXABAN 5 MG TABLET PO ×2 (10:34→16:39)
[2021-06-15] MEDS: carvediloL 12.5 MG TABLET PO ×2 (10:34→21:45)
[2021-06-15] MEDS: LOSARTAN POTASSIUM 100 MG TABLET PO (10:34)
--- NOTE | 2021-06-15 12:02 | PM.IMPN ---
Progress Note: A&P Assessment and Plan (1) Acute and chronic respiratory failure: Qualifiers: Respiratory failure complication: unspecified whether with hypoxia or hypercapnia Qualified Code(s): J96.20 - Acute and chronic respiratory failure, unspecified whether with hypoxia or hypercapnia Code(s): J96.20 - Acute and chronic respiratory failure, unspecified whether with hypoxia or hypercapnia Status: Acute Assessment and Plan: Patient presents with increasing shortness of breath. She was placed on high-flow nasal cannula. No blood gas performed. Suspect her symptoms related CHF exacerbation complicated by her anxiety. Currently patient at baseline on 3 L nasal cannula. She was educated about the benefits of COVID vaccine. She voices understanding of the risks of COVID but is concerned about the long-term side effects of the vaccine. She understands that she is high risk for complications from COVID. Continue to follow. (2) Congestive heart failure: Qualifiers: Heart failure chronicity: acute on chronic Heart failure type: diastolic Qualified Code(s): I50.33 - Acute on chronic diastolic (congestive) heart failure Code(s): I50.9 - Heart failure, unspecified Status: Acute Assessment and Plan: Patient has been having increasing pedal edema and now increasing shortness of breath. BNP is 0. Chest x-ray showed cardiomegaly with pulmonary vascular congestion concerning for CHF exacerbation. Echocardiogram a year ago showed EF of 60-65% and moderate pulmonary hypertension with a PASP 50mmHg. Diastolic function was indeterminate. IV Lasix have been started and will continue. Repeat echocardiogram. (3) COPD (chronic obstructive pulmonary disease): Qualifiers: COPD type: unspecified COPD Qualified Code(s): J44.9 - Chronic obstructive pulmonary disease, unspecified Code(s): J44.9 - Chronic obstructive pulmonary disease, unspecified Status: Acute Assessment and Plan: Patient is not wheezing. Chest x-ray is more consistent with CHF. Suspect this is more CHF exacerbation and COPD. Will stop Solu-Medrol. Continue to follow. Will continue nebulizer treatments and resume Symbicort. (4) ALBERTO (obstructive sleep apnea): Code(s): G47.33 - Obstructive sleep apnea (adult) (pediatric) Status: Acute Assessment and Plan: Stable. CPAP has been reordered here. Continue to follow. Encourage compliance. (5) Hypertension: Qualifiers: Hypertension type: essential hypertension Qualified Code(s): I10 - Essential (primary) hypertension Code(s): I10 - Essential (primary) hypertension Status: Acute Assessment and Plan: Patient's blood pressure was reviewed on 06/15 Blood pressure poorly controlled. Will resume her home medications and continue to monitor. May need to adjust medications if blood pressure remains elevated. (6) Chronic atrial fibrillation: Code(s): I48.20 - Chronic atrial fibrillation, unspecified Status: Acute Assessment and Plan: Telemetry reviewed. Atrial fibrillation noted with controlled rate. Will resume her Coreg. Eliquis has also been resumed. (7) MYKEL (generalized anxiety disorder): Code(s): F41.1 - Generalized anxiety disorder Status: Acute Assessment and Plan: Patient has generalized anxiety disorder. She states she normally called her daughter who can calm her down. Will resume her alprazolam. Continue to monitor. (8) DVT prophylaxis: Code(s): Z29.9 - Encounter for prophylactic measures, unspecified Status: Acute Assessment and Plan: Resume Eliquis. Subjective Date/time seen: 06/15/21 12:02 Interval history: 75yo female with chronic respiratory failure, chronic AFib, CHF and COPD here for SOB Assuming care. Chart reviewed. Patient slept poorly last night. Nurse states patient did get
[2021-06-15] MEDS: TOLNAFTATE 1% POWDER 45 GM BTL 1 APPLIC TOPICAL ×2 (16:38→21:46)
[2021-06-16] VITALS (16 sets, daily range): BP systolic 133–158; BP diastolic 67–82; PULSE 53–87; RESP 14–20; TEMP 36.1–36.8; O2SAT 90–98
[2021-06-16 00:02] LABS: Add Urine Microscopic? YES; Appearance Urine Clear (Clear); Bilirubin Urine Negative (Negative); Blood Urine Negative (Negative); Color Urine Yellow (Yellow); Glucose Urine UA Negative (Negative); Ketones Urine Negative (Negative); Leukocyte Esterase Ur Negative LEU/UL (Negative); Mucus Urine Rare /lpf; Nitrate Urine Positive (Negative); Protein Urine Negative (Negative); Renal Epithelial Cells Urine Rare /hpf (None Seen); Specific Grav Ur 1.021 (1.001-1.035)
[2021-06-16] MEDS: ALBUTEROL SULFATE NEB 2.5 MG/0.5 ML INH 5 MG INHALATION ×4 (02:48→22:18)
[2021-06-16] MEDS: IPRATROPIUM BR 0.02% INH SOLN 0.5 MG/2.5 ML VIAL INHALATION ×4 (02:48→22:19)
[2021-06-16] MEDS: HYDROcodone/acetaminophen (*CRX) 10-325 MG TABLET 1 TAB PO ×3 (05:06→18:01)
[2021-06-16 07:21] LABS: Basophils Percent Auto 0.2 % (0.2-1.2); Hematocrit 34.9 % (37.0-47.0); Hemoglobin 10.4 g/dL (12.0-15.0); Immature Granulocyte Absolute 0.05 K/mm3 (0.00-0.031); Immature Granulocyte Percent A 0.6 % (0-0.5); Lymphocytes Absolute Auto 1.33 K/mm3 (0.9-3.2); Lymphocytes Percent Auto 15.3 % (18.3-44.2); Mean Corpuscular HGB Conc 29.8 g/dl (32-36); Mean Corpuscular Volume 87.3 fl (80-100); Mean Platelet Volume 9.3 fl (7.4-10.4); Monocytes Absolute Auto 0.8 K/mm3 (0.1-0.6); Monocytes Percent Auto 9.6 % (2.6-8.5); Neutrophils Absolute Auto 6.5 K/mm3 (1.3-6.7); Neutrophils Percent Auto 74.3 % (45.5-73.1); Platelet Count Result 348 k/mm3 (150-375); Red Cell Distribution Width 16.4 % (11.5-14.5); White Blood Count 8.7 K/mm3 (4.5-10.0)
[2021-06-16 07:47] LABS: Anion Gap 8 mmol/L (8-16); Blood Urea Nitrogen 16 mg/dL (7-17); Calcium 8.5 mg/dL (8.4-10.2); Carbon Dioxide 34 mmol/L (22-30); Chloride 93 mmol/L (98-107); Estimated CRCL calculation 94 ml/min; Estimated Glomerular Filt Rate > 60; Glucose 147 mg/dL (65-110); Magnesium 1.7 mg/dL (1.6-2.3); Phosphorus 2.6 mg/dL (2.5-4.5); Potassium 2.8 mmol/L (3.4-5.0); Sodium 135 mmol/L (137-145)
--- NOTE | 2021-06-16 08:05 | PC.NURSE ---
Patient expressed that she wasn't getting attention early in the night after requesting that her IV needed to be taped down. She was reminded that there were other medically unstable patients that the nurse needed to see first. She stated that she understood this and had appeared to calm down after having a chance to discuss it.
[2021-06-16 08:14] LABS: Hypochromasia 1+ (NORMAL); Platelet Estimate Adequate (Adequate)
[2021-06-16 08:15] LABS: Anisocytosis 1+ (NORMAL); Ovalocytes 1+ (NORMAL)
[2021-06-16] MEDS: MAGNESIUM SULF 2 GM/WATER 50ML 2 GM/50 ML BAG IVPB (08:18)
[2021-06-16] MEDS: APIXABAN 5 MG TABLET PO ×2 (08:37→16:47)
[2021-06-16] MEDS: hydrALAZINE 10 MG TABLET PO ×2 (08:37→16:48)
[2021-06-16] MEDS: carvediloL 12.5 MG TABLET PO ×2 (08:37→20:15)
[2021-06-16] MEDS: LOSARTAN POTASSIUM 100 MG TABLET PO (08:37)
[2021-06-16] MEDS: TOLNAFTATE 1% POWDER 45 GM BTL 1 APPLIC TOPICAL (08:37)
[2021-06-16] MEDS: SPIRONOLACTONE 25 MG TABLET PO (08:37)
[2021-06-16] MEDS: FUROSEMIDE INJ 40 MG/4 ML VIAL IV PUSH ×2 (11:45→20:15)
--- NOTE | 2021-06-16 12:04 | PM.IMPN ---
Progress Note: A&P Assessment and Plan (1) Acute and chronic respiratory failure: Qualifiers: Respiratory failure complication: unspecified whether with hypoxia or hypercapnia Qualified Code(s): J96.20 - Acute and chronic respiratory failure, unspecified whether with hypoxia or hypercapnia Code(s): J96.20 - Acute and chronic respiratory failure, unspecified whether with hypoxia or hypercapnia Status: Acute Assessment and Plan: Patient presents with increasing shortness of breath. She was placed on high-flow nasal cannula. No blood gas performed. Suspect her symptoms related CHF exacerbation complicated by her anxiety. She is not vaccinated and she was educated about the benefits of COVID vaccine. Patient much better and currently at baseline on 3 L nasal cannula. Continue to follow. (2) Congestive heart failure: Qualifiers: Heart failure chronicity: acute on chronic Heart failure type: diastolic Qualified Code(s): I50.33 - Acute on chronic diastolic (congestive) heart failure Code(s): I50.9 - Heart failure, unspecified Status: Acute Assessment and Plan: Patient has been having increasing pedal edema and now increasing shortness of breath. BNP is 2060. Chest x-ray showed cardiomegaly with pulmonary vascular congestion concerning for CHF exacerbation. Echocardiogram a year ago showed EF of 60-65% and moderate pulmonary hypertension with a PASP 50mmHg. Diastolic function was indeterminate. All consistent with CHF exacerabation. IV Lasix was started with good UOP. Repeat echocardiogram pendigg. (3) COPD (chronic obstructive pulmonary disease): Qualifiers: COPD type: unspecified COPD Qualified Code(s): J44.9 - Chronic obstructive pulmonary disease, unspecified Code(s): J44.9 - Chronic obstructive pulmonary disease, unspecified Status: Acute Assessment and Plan: Patient is not wheezing. Chest x-ray is more consistent with CHF. Suspect this is more CHF exacerbation and COPD. Solu-Medrol was stopped. Continue to follow. Continue nebulizer treatments and Symbicort. (4) ALBERTO (obstructive sleep apnea): Code(s): G47.33 - Obstructive sleep apnea (adult) (pediatric) Status: Acute Assessment and Plan: Stable. CPAP has been reordered here. Continue to follow. (5) Hypertension: Qualifiers: Hypertension type: essential hypertension Qualified Code(s): I10 - Essential (primary) hypertension Code(s): I10 - Essential (primary) hypertension Status: Acute Assessment and Plan: Patient's blood pressure was reviewed on 06/16 Blood pressure poorly controlled but better with BP this am 150/67 prior to medications. Will continue her home medications and continue to monitor. (6) Chronic atrial fibrillation: Code(s): I48.20 - Chronic atrial fibrillation, unspecified Status: Acute Assessment and Plan: Telemetry reviewed. Atrial fibrillation noted with controlled rate. Will continue Coreg. Eliquis has also been resumed. Okay to stop tele (7) MYKEL (generalized anxiety disorder): Code(s): F41.1 - Generalized anxiety disorder Status: Acute Assessment and Plan: Patient has generalized anxiety disorder. Continue prn alprazolam. Continue to monitor. (8) DVT prophylaxis: Code(s): Z29.9 - Encounter for prophylactic measures, unspecified Status: Acute Assessment and Plan: Eliquis. Subjective Date/time seen: 06/16/21 12:04 Interval history: 75yo female with chronic respiratory failure, chronic AFib, CHF and COPD here for SOB Slept well. She did wear the NIV last night. No CP. SOB much better. No CP. Eatig okay. Exam Narrative: AF 97.1 150/67 53 18 95% 3L Gen - NARD lying semi-recumbent in bed Chest - mild bibasilar inspiratory crackles. nml RR CV -irregularly irregular. Telemetry showing atrial fibrillation
[2021-06-16] MEDS: ALPRAZolam (*CRX) 0.5 MG TABLET PO ×2 (13:51→20:15)
[2021-06-16 14:15] LABS: Potassium 3.4 mmol/L (3.4-5.0)
[2021-06-16] MEDS: POTASSIUM CHLORIDE 20 MEQ PACKET (FOR LIQUID) 40 MEQ PO (16:50)
[2021-06-17] VITALS (8 sets, daily range): BP systolic 136–143; BP diastolic 60–63; PULSE 64–82; RESP 15–20; TEMP 36.3–36.7; O2SAT 94–97
[2021-06-17] MEDS: HYDROcodone/acetaminophen (*CRX) 10-325 MG TABLET 1 TAB PO ×3 (00:19→13:13)
[2021-06-17] MEDS: ALBUTEROL SULFATE NEB 2.5 MG/0.5 ML INH 5 MG INHALATION ×2 (02:19→15:14)
[2021-06-17] MEDS: IPRATROPIUM BR 0.02% INH SOLN 0.5 MG/2.5 ML VIAL INHALATION ×2 (02:19→15:14)
[2021-06-17 07:19] LABS: Anion Gap 5 mmol/L (8-16); Blood Urea Nitrogen 18 mg/dL (7-17); Calcium 8.4 mg/dL (8.4-10.2); Carbon Dioxide 37 mmol/L (22-30); Chloride 95 mmol/L (98-107); Estimated CRCL calculation 82 ml/min; Estimated Glomerular Filt Rate > 60; Glucose 107 mg/dL (65-110); Potassium 2.8 mmol/L (3.4-5.0); Sodium 137 mmol/L (137-145)
[2021-06-17] MEDS: hydrALAZINE 10 MG TABLET PO ×2 (08:35→16:47)
[2021-06-17] MEDS: APIXABAN 5 MG TABLET PO ×2 (08:35→16:46)
[2021-06-17] MEDS: LOSARTAN POTASSIUM 100 MG TABLET PO (08:35)
[2021-06-17] MEDS: TOLNAFTATE 1% POWDER 45 GM BTL 1 APPLIC TOPICAL (08:35)
[2021-06-17] MEDS: carvediloL 12.5 MG TABLET PO (08:35)
[2021-06-17] MEDS: SPIRONOLACTONE 25 MG TABLET PO (08:35)
[2021-06-17] MEDS: FUROSEMIDE 40 MG TABLET PO (08:41)
[2021-06-17] MEDS: POTASSIUM CHLORIDE 20 MEQ TABLET.ER 40 MEQ PO (08:41)
--- NOTE | 2021-06-17 13:02 | PCOTNOTE ---
Attempted to see patient this pm, however patient crying upon entering and refused stating, I can't do anything right now. Pt reported burning in IV site. Pt reported RN is aware and She already slowed it down some, but nothing is helping.
[2021-06-17] MEDS: FUROSEMIDE 20 MG TABLET PO (13:13)
[2021-06-17] MEDS: ALPRAZolam (*CRX) 0.5 MG TABLET PO (13:13)
[2021-06-17 14:50] LABS: Potassium 3.7 mmol/L (3.4-5.0)
--- NOTE | 2021-06-17 15:07 | PM.DS ---
DS: Admitting Diagnosis Admitting Diagnosis Shortness of breath DS: Discharge Diagnosis Discharge Diagnosis (1) Acute and chronic respiratory failure: Qualifiers: Respiratory failure complication: unspecified whether with hypoxia or hypercapnia Qualified Code(s): J96.20 - Acute and chronic respiratory failure, unspecified whether with hypoxia or hypercapnia Code(s): J96.20 - Acute and chronic respiratory failure, unspecified whether with hypoxia or hypercapnia Status: Acute Assessment and Plan: Patient presents with increasing shortness of breath. She was placed on high-flow nasal cannula. No blood gas performed. Suspect her symptoms related CHF exacerbation complicated by her anxiety. She is not vaccinated and she was educated about the benefits of COVID vaccine. With treatment, patient feels much better and currently at baseline on 3 L nasal cannula. (2) Congestive heart failure: Qualifiers: Heart failure chronicity: acute on chronic Heart failure type: diastolic Qualified Code(s): I50.33 - Acute on chronic diastolic (congestive) heart failure Code(s): I50.9 - Heart failure, unspecified Status: Acute Assessment and Plan: Patient has been having increasing pedal edema and now increasing shortness of breath. BNP is 2060. Chest x-ray showed cardiomegaly with pulmonary vascular congestion concerning for CHF exacerbation. Echocardiogram a year ago showed EF of 60-65% and moderate pulmonary hypertension with a PASP 50mmHg. Diastolic function was indeterminate. All consistent with CHF exacerbation. IV Lasix was started with good UOP. Repeat echocardiogram pending (3) COPD (chronic obstructive pulmonary disease): Qualifiers: COPD type: unspecified COPD Qualified Code(s): J44.9 - Chronic obstructive pulmonary disease, unspecified Code(s): J44.9 - Chronic obstructive pulmonary disease, unspecified Status: Acute Assessment and Plan: Patient is not wheezing. Chest x-ray is more consistent with CHF. Suspect this is more CHF exacerbation and COPD. Solu-Medrol was stopped. We continued nebulizer treatments and Symbicort. (4) ALBERTO (obstructive sleep apnea): Code(s): G47.33 - Obstructive sleep apnea (adult) (pediatric) Status: Acute Assessment and Plan: Stable. CPAP was reordered here. (5) Hypertension: Qualifiers: Hypertension type: essential hypertension Qualified Code(s): I10 - Essential (primary) hypertension Code(s): I10 - Essential (primary) hypertension Status: Acute Assessment and Plan: Patient's blood pressure was poorly controlled initially but better today. Continue her current medications (6) Chronic atrial fibrillation: Code(s): I48.20 - Chronic atrial fibrillation, unspecified Status: Acute Assessment and Plan: Atrial fibrillation noted with controlled rate. We continued her Coreg and Eliquis (7) MYKEL (generalized anxiety disorder): Code(s): F41.1 - Generalized anxiety disorder Status: Acute Assessment and Plan: Patient has generalized anxiety disorder. We continued her prn alprazolam. DS: Summary Hospital Course Reason for hospitalization: 75yo female with chronic respiratory failure, chronic AFib, CHF and COPD here for SOB. Please see H&P for details Hospital Course: Please see above for details of hospital course Status at Discharge Cognitive/behavioral status at discharge: stable Time Spent with Patient Time attestation: Total time spent providing and/or coordinating discharge services: 36 minutes Time spent: Greater than 30 minutes Exam Narrative: AF 97.3 136/60 64 18 97% 3L Gen - NARD lying semi-recumbent in bed Chest - few basilar rhonchi o/w clear, nml RR CV -irregularly irregular Abd - soft, obese, NT Ext -trace bilateral pedal edema. Psych - nml mood and affect Skin
== END 2021-06-17 17:05 | disposition home or self-care (01) | DRG 291 ==
LOC: ANHED 06-15 00:38 → ANH3MEDSUR 06-15 01:01
PROVIDERS: Admitting Provider Internal Medicine; Emergency Provider Emergency Medicine; PCP Family Medicine; Visit Provider Internal Medicine
DX: I11.0 Hypertensive heart disease with heart failure (principal); J96.20 Acute and chronic respiratory failure, unspecified whether with hypoxia or hypercapnia; I48.20 Chronic atrial fibrillation, unspecified; I50.33 Acute on chronic diastolic (congestive) heart failure; F41.1 Generalized anxiety disorder; G47.33 Obstructive sleep apnea (adult) (pediatric); E11.43 Type 2 diabetes mellitus with diabetic autonomic (poly)neuropathy; J44.9 Chronic obstructive pulmonary disease, unspecified
CPT/HCPCS: 36415; 71045; 80048; 80053; 80069; 81001; 83735; 83880; 84132; 84484; 85025; 85610; 85730; 93005; 94640; 96365; 96374; 96375; 96376; 97165; 97535; 99285; A9270; G0378; J1940; J2270; J2930; J3475; J3480

== ENCOUNTER 2021-11-18 09:58 | Inpatient (IN) | payer MEDICARE, OTHER, SELFPAY ==
[2021-11-18] VITALS (26 sets, daily range): BP systolic 163–194; BP diastolic 68–106; PULSE 68–94; RESP 12–25; TEMP 36.3–36.7; O2SAT 93–100; BMI 47.1
--- NOTE | ~2021-11-18 | XR_ITS ---
XR chest 2V DATE: 11/18/2021 10:17 INDICATION: Shortness of breath TECHNIQUE: AP and lateral views COMPARISON: 06/14/2021 portable AP chest FINDINGS: There is cardiomegaly. Aortic calcification and mild tortuosity. There is no pulmonary infiltrate or consolidation or pleural effusion or pneumothorax. Diffuse osteopenia. IMPRESSION: Cardiomegaly Reviewed, dictated and finalized at location A. ITE DESIGNER IMPRESSION: Cardiomegaly
--- NOTE | ~2021-11-18 | NM_ITS ---
EXAMINATION: NM skye stress w perfusion DATE: 11/21/2021 12:25 INDICATION: Exertional chest pain. Dyspnea on exertion. TECHNIQUE: Rest images were obtained following intravenous administration of 10.2 mCi Tc99m tetrofosm in (Myoview). The patient was infused intravenously with Lexiscan (regadenoson). Then, 32.7 mCi Tc99m tetrofosmin (Myoview) was administered intravenously, and stress images were obtained. Data was shu nstructed into short axis and horizontal and vertical long axis SPECT images. Gated SPECT images were also obtained. COMPARISON: Myocardial perfusion imaging 04/28/2014, CT abdomen and pelvis 03/22/2021 FINDINGS: There is a large, moderate-severity, fixed perfusion defect involving apical to basal anter ior wall and mid to basal anterolateral wall of left ventricle, consistent with infarct. No reversibl e component to suggest ischemia. There is no segmental wall motion abnormality. Left ventricular ej ection fraction measures >70%. IMPRESSION: 1. Large area of moderate infarct involving apical to basal anterior wall and mid to basal anterolate ral wall of left ventricle. Specificity is decreased by chest wall attenuation. 2. Normal left ventricular ejection fraction measuring >70%. Reviewed, dictated and finalized at location A. CAL BRIGHTENER MAKER HELPER IMPRESSION: 1. Large area of moderate infarct involving apical to basal anterior wall and m id to basal anterolateral wall of left ventricle. Specificity is decreased by c hest wall attenuation. 2. Normal left ventricular ejection fraction measuring >70%.
--- NOTE | 2021-11-18 10:06 | ECG_ITS ---
Measurements Intervals Celestine Rate: 74 P: NH: 0 QRS: 107 QRSD: 121 T: 7 QT: 396 QTc: 440 Interpretive Statements ATRIAL FIBRILLATION RIGHT AXIS DEVIATION RIGHT BUNDLE BRANCH BLOCK BASELINE ARTIFACT- I, II, AVR ABNORMAL ECG Electronically Signed On 11-18-2021 13:02:15 [employer] by Derian Tineo D.O.
[2021-11-18 10:36] LABS: Basophils Absolute Auto 0.1 K/mm3 (0.0-0.1); Basophils Percent Auto 0.9 % (0.2-1.2); Eosinophils Absolute Auto 0.2 K/mm3 (0-0.3); Eosinophils Percent Auto 2.3 % (0-4.4); Hematocrit 32.2 % (37.0-47.0); Hemoglobin 9.7 g/dL (12.0-15.0); Immature Granulocyte Absolute 0.03 K/mm3 (0.00-0.031); Immature Granulocyte Percent A 0.4 % (0-0.5); Lymphocytes Absolute Auto 1.16 K/mm3 (0.9-3.2); Lymphocytes Percent Auto 14.5 % (18.3-44.2); Mean Corpuscular HGB Conc 30.1 g/dl (32-36); Mean Corpuscular Hemoglobin 28.3 pg (26-34); Mean Corpuscular Volume 93.9 fl (80-100); Mean Platelet Volume 9.5 fl (7.4-10.4); Monocytes Absolute Auto 0.6 K/mm3 (0.1-0.6); Monocytes Percent Auto 7.4 % (2.6-8.5); Neutrophils Percent Auto 74.5 % (45.5-73.1); Platelet Count Result 375 k/mm3 (150-375); Red Blood Count 3.43 M/mm3 (4.2-5.4); Red Cell Distribution Width 15.4 % (11.5-14.5)
[2021-11-18 10:46] LABS: Alanine Aminotransferase 13 U/L (4-35); Albumin Level 3.9 g/dL (3.5-5.1); Alkaline Phosphatase 180 U/L (38-126); Anion Gap 8 mmol/L (8-16); Aspartate Amino Transferase 23 U/L (14-36); Bilirubin,Total 0.4 mg/dL (0.2-1.3); Blood Urea Nitrogen 7 mg/dL (7-17); Calcium 8.5 mg/dL (8.4-10.2); Carbon Dioxide 27 mmol/L (22-30); Chloride 105 mmol/L (98-107); Estimated CRCL calculation 80 ml/min; Estimated Glomerular Filt Rate > 60; Glucose 112 mg/dL (65-110); INR 1.4; Potassium 3.4 mmol/L (3.4-5.0); Prothrombin Time 17.3 Seconds (11.1-14.7); Sodium 140 mmol/L (137-145)
[2021-11-18 10:47] LABS: Partial Thromboplastin Time 33.8 SECONDS (22.3-36.8)
[2021-11-18 11:05] LABS: NT Pro B Type Natriuretic Pept 3500 pg/mL (5-100); Troponin I 0.075 ng/mL (0.000-0.034)
--- NOTE | 2021-11-18 11:16 | ED.GENADULT ---
HPI - General Adult General Chief complaint: Shortness of Breath/Dyspnea <Miguel Angel Murdock PA-C - Last Filed: 11/18/21 11:57> Stated complaint: SOB <Miguel Angel Murdock PA-C - Last Filed: 11/18/21 11:57> Time Seen by Provider: 11/18/21 10:58 <Miguel Angel Murdock PA-C - Last Filed: 11/18/21 11:57> Source: EMS <JAYSON Win Last Filed: 11/18/21 11:57> Mode of arrival: EMS <JAYSON Win Last Filed: 11/18/21 11:57> Limitations: no limitations <JAYSON Win Last Filed: 11/18/21 11:57> History of Present Illness HPI narrative: 76-year-old female with a history of atrial fibrillation (Eliquis), CHF (furosemide 40 mg daily), COPD (4 L of nasal cannula oxygen continuously), pulmonary hypertension, and hypertension presents to the ED via EMS with a 1 week history of progressively increasing exertional dyspnea along with exertional chest discomfort. Patient lives by herself however is visited frequently by family. She states over the past 7 days she has been experiencing progressively increasing shortness of breath, particularly when walking short distances. She has a home pulse oximeter and states readings have been dropping to the 80s with ambulation. She experiences left-sided chest pressure with ambulation as well. This pain typically persists for several minutes before beginning to subside. Pain does not radiate and is not associated with nausea, vomiting, or diaphoresis. She has no known history of CAD and does not believe she has ever undergone cardiac catheterization. She is compliant with all medications. Of note, patient has not received the COVID-19 vaccine. <JAYSON Win Last Filed: 11/18/21 11:57> Related Data Home medications: Home Medications Medication Instructions Recorded Confirmed hydrocodone-acetaminophen 1 tablet PO Q6H PRN 05/26/20 11/18/21 apixaban [Eliquis] 5 mg PO Q12H 11/18/21 11/18/21 hydralazine 10 mg PO Q12H 11/18/21 11/18/21 <Miguel Angel Murdock PA-C - Last Filed: 11/18/21 11:57> Allergies/adverse reactions: Allergies Allergy/AdvReac Type Severity Reaction Status Date / Time No Known Allergies Allergy Unknown Verified 11/18/21 10:07 <Miguel Angel Murdock PA-C - Last Filed: 11/18/21 11:57> Review of Systems Review of Systems: CONSTITUTIONAL: Denies fever, chills, or sweats. EYES: Denies visual changes, redness, or discharge. ENT: Denies rhinorrhea, congestion, sore throat, or otalgia. CARDIOVASCULAR: + chest pain, + mild peripheral edema. RESPIRATORY: + Shortness of breath GASTROINTESTINAL: Denies abdominal pain, nausea, vomiting, or diarrhea. GENITOURINARY: Denies dysuria or hematuria. SKIN: Denies rash or itching. MUSCULOSKELETAL: Denies back pain, joint pain, or myalgia. NEUROLOGIC: Denies headache, numbness, dizziness, or weakness. PSYCHIATRIC: Denies anxiety or depression. <Miguel Angel Murdock PA-C - Last Filed: 11/18/21 11:57> All systems reviewed & are unremarkable except as noted in HPI and below <Miguel Angel Murdock PA-C - Last Filed: 11/18/21 11:57> [facility] Past Medical History Medical History: Medical History (Updated 11/20/21 @ 09:57 by Basim Crawford MD) Anxiety Arthritis Asthma Benign colon polyp Benign essential tremor Chronic anticoagulation Chronic atrial fibrillation Chronic diastolic congestive heart failure Chronic obstructive pulmonary disease Chronic pain syndrome Due to chronic back and neck pain. She is on long-term opiate therapy. Chronic respiratory failure with hypoxia, on home oxygen therapy Depression Emphysema lung Fibromyalgia Gastroesophageal reflux disease History of tobacco use Hypertension Inguinal hernia Obstructive sleep apnea Osteoporosis Peripheral neuropathy Seasonal allergies Severe pulmonary arterial systolic hypertension RVSP of 63 millimeters of mercury on echocardiogram in June 2019. Takotsubo cardiomyopathy In May 2019 with ejec
[2021-11-18] MEDS: ASPIRIN 81 MG CHEWABLE TABLET 324 MG PO (11:48)
[2021-11-18] MEDS: methylPREDNISolone SOD SUCC 125 MG VIAL 40 MG IV PUSH (11:49)
[2021-11-18] MEDS: ALBUTEROL SULFATE NEB 2.5 MG/0.5 ML INH 5 MG INHALATION ×2 (12:04→20:17)
[2021-11-18] MEDS: IPRATROPIUM BR 0.02% INH SOLN 0.5 MG/2.5 ML VIAL INHALATION (12:05)
[2021-11-18 12:36] LABS: SARS-CoV-2 RNA PCR Negative
--- NOTE | 2021-11-18 13:30 | PM.IMHP ---
H&P: HPI History of Present Illness Date/Time: 11/18/21 13:30 Chief Complaint: Shortness of breath. Narrative: This is a 76-year-old female with multiple medical problems including chronic respiratory failure on oxygen, obstructive sleep apnea, COPD, congestive heart failure, atrial fibrillation, and anxiety who presented to the emergency department earlier this afternoon via EMS from home for evaluation of shortness of breath. She endorses chronic dyspnea on exertion though she has become increasingly short of breath on lesser and lesser exertion over the past 1 week or so. She has a pulse oximeter at home which she monitors and over the past couple of days her SpO2 has been dropping into the mid 80s with ambulation which is unusual for her. Additionally she reports central chest pressure with exertion that typically resolves without intervention within 5 minutes or so. She has no known history of coronary artery disease. She denies syncope, near syncope, sweats, pleuritic pain, orthopnea, PND, and palpitations. She also denies sinus congestion, sore throat, cough, and wheezing. Review of Systems Review of Systems: Twelve systems were reviewed. No sick contacts. No exposure to those positive for COVID. She was not vaccinated for COVID. She reports 1 episode of emesis several days ago though she describes that it was mostly ?phlegm.? She denies dysphagia and concerns for aspiration. She has chronic lower extremity edema which is unchanged. Except as documented, all other systems were reviewed and are negative. [facility] Past Medical History Medical History Anxiety Arthritis Asthma Benign colon polyp Benign essential tremor Chronic atrial fibrillation Chronic diastolic congestive heart failure Chronic obstructive pulmonary disease Chronic pain syndrome Due to chronic back and neck pain. She is on long-term opiate therapy. Chronic respiratory failure with hypoxia, on home oxygen therapy Depression Emphysema lung Fibromyalgia Gastroesophageal reflux disease History of tobacco use Hypertension Inguinal hernia Obstructive sleep apnea Osteoporosis Peripheral neuropathy Seasonal allergies Severe pulmonary arterial systolic hypertension RVSP of 63 millimeters of mercury on echocardiogram in June 2019. Takotsubo cardiomyopathy In May 2019 with ejection fraction as low as 25 to 30%. EF improved to 65% on echo in June 2019. Type 2 diabetes mellitus with autonomic neuropathy Uterine cancer Surgical History Surgical History (Updated 11/18/21 @ 13:39 by Tanna Munoz PA-C) History of 2 sections History of cardiac cath History of cholecystectomy History of dilatation and curettage History of exploratory laparotomy With adhesiolysis. History of gastric bypass History of incisional hernia repair History of right knee joint replacement History of surgical removal of ganglion cyst History of total abdominal hysterectomy and bilateral salpingo-oophorectomy For uterine cancer. History of tubal ligation Family History Family History Mother Diabetes mellitus Acute myocardial infarction Family history of chronic obstructive pulmonary disease Family history of heart disease in male family member before age 55 Patient's mother is Father Family history of arthritis Family history of emphysema Family history of lung disease Patient's father is Sibling Family history of malignant neoplasm of uterus Family history of malignant neoplasm of ovary Patient's sister is in good health Family history of malignant neoplasm Patient's sister is Other Family history of cardiovascular disease Family history of osteoarthritis Hypertension Social History Social History (Updated 11/18/21 @ 21:56 by Tanna Munoz PA-C) Social History
[2021-11-18] MEDS: HYDROcodone/acetaminophen (*CRX) 10-325 MG TABLET 1 TAB PO ×2 (13:38→22:42)
[2021-11-18 14:12] LABS: Magnesium 2.1 mg/dL (1.6-2.3)
[2021-11-18 14:16] LABS: Hemoglobin A1C 5.6 % (<5.7)
--- NOTE | 2021-11-18 15:00 | ADMGEN ---
This patient, Cheyenne Sawyer, was admitted to IMU Room 205-02. Patient/family oriented to hospital policies and general routines including ID bracelet, bed and alarms, visiting hours, pain management, procedures, bathroom and other care routines, personal items, smoking policy, room service/diet, and visiting hours. Information on how to activate the Rapid Response Team has been discussed. Patient/Family are encouraged to report perceived risks to care and to ask questions if they do not understand what they are told or what they should do.
[2021-11-18 15:15] LABS: Troponin I 0.064 ng/mL (0.000-0.034)
--- NOTE | 2021-11-18 15:53 | PM.CNCAR ---
Assessment and Plan Additional Plan 76-year-old white female with a history of chronic atrial fibrillation, reported history of COPD with heavy cigarette smoking in the past and morbid obesity. She has been having more difficulty with exertional shortness of breath associated with some central chest discomfort for about 7-10 days. Her previous echocardiograms do not show any evidence of LV systolic dysfunction or significant valvular disease and there is no evidence on physical exam of the significant valvular issue. Principal cardiac concerned therefore would be a possibility of ischemic heart disease resulting in her worsening symptoms. For this I would recommend arranging for a Lexiscan nuclear stress test. The logistics of this is that it will not happen until Sunday morning since it is now Sunday evening. I would probably recommend keeping her in the hospital to get this done if she is still symptomatic like this. I believe I would recommend stopping her apixaban on Sunday so that if she does have an abnormal stress test angiography could be considered early next week. You have any questions regarding this opinion or plan please let me know Abhay Harper MD [facility] History of Present Illness History of Present Illness Consult date/time: 11/18/21 15:53 Consult reason: chest pain Reason For Visit: acute chest pain Narrative: This is a 76-year-old woman I am seeing at the request of the hospitalist because of chest pain and elevation of troponin. The patient is a reasonable historian and has never been seen by our practice in the past as far as I can tell. She has a history of chronic atrial fibrillation which appears to be followed and managed by her primary care physician. For this she is anticoagulated with apixaban. She does not recall having any other cardiac problems in the past. She is a morbidly obese lady with a BMI of 47 who also has significant chronic lung disease with a prior history of smoking heavily for 40 years but has quit smoking a number of years ago. She states that she came to the emergency room today because for the last week to 10 days her baseline shortness of breath has become much worse with exertional breathlessness with simply ambulating through her house from room to room which is typically not the case. When she does this she also has a sense of some central chest discomfort. With 5-6 minutes of resting the symptoms seem to improve. She is not having any sense of palpitations orthopnea PND or accumulating edema. The patient has chronic atrial fibrillation she says she has had atrial fibrillation for many years. Her ECG demonstrates AFib with a controlled response and a right bundle branch block, unchanged from prior tracings. Echocardiograms in the chart as recently as a year and a half ago do not show any evidence of LV systolic dysfunction or significant valvular disease. She does have moderate atrial dilation and at least moderate pulmonary hypertension. She is in the IMU room 205 supine in bed head of the bed is at about 45? she does not have any other complaints. Troponin levels were done in the emergency room and are slightly elevated at 0.06 and flat. Review of Systems Constitutional: Constitutional: Reports no additional constitutional complaints Eyes: Eyes: Reports no additional eye complaints ENT: Reports system reviewed and no additional complaints, except as documented Cardiovascular: Cardiovascular: Reports as per HPI Respiratory: Respiratory: Reports dyspnea on exertion Gastrointestinal: Gastrointestinal: Reports no additional gastrointestinal complaints Musculoskeletal: Musculoskeletal: Reports no additional musculoskeletal complaints Integumentary/Breasts: Skin/Breast: Reports system reviewed and no additional complaints, except as docu Neurologic: Reports system reviewed and no additional complaints, except as documented Endocrine: Endocrine: Reports no additional endocrine com
[2021-11-18] MEDS: ACETAMINOPHEN 325 MG TABLET 650 MG PO ×2 (16:38→20:31)
[2021-11-18 17:05] LABS: Glucose Point of Care 159 mg/dl (65-105)
[2021-11-18 17:54] LABS: Troponin I 0.053 ng/mL (0.000-0.034)
[2021-11-18] MEDS: HYDROcodone/acetaminophen (*CRX) 5-325 MG TABLET 1 TAB PO (18:12)
[2021-11-18 20:05] LABS: Glucose Point of Care 161 mg/dl (65-105)
[2021-11-18] MEDS: ALPRAZolam (*CRX) 0.5 MG TABLET PO (22:43)
[2021-11-19] VITALS (28 sets, daily range): BP systolic 119–168; BP diastolic 51–72; PULSE 57–85; RESP 15–23; TEMP 35.7–36.6; O2SAT 92–100
[2021-11-19] MEDS: carvediloL 12.5 MG TABLET PO ×2 (00:41→09:27)
[2021-11-19] MEDS: TOLNAFTATE 1% POWDER 45 GM BTL 1 APPLIC TOPICAL ×2 (00:42→20:28)
[2021-11-19] MEDS: hydrALAZINE 10 MG TABLET PO ×3 (00:42→20:25)
[2021-11-19] MEDS: ALBUTEROL SULFATE NEB 2.5 MG/0.5 ML INH 5 MG INHALATION ×4 (02:20→21:10)
[2021-11-19] MEDS: HYDROcodone/acetaminophen (*CRX) 10-325 MG TABLET 1 TAB PO ×4 (05:24→23:34)
[2021-11-19 05:28] LABS: Potassium 3.3 mmol/L (3.4-5.0)
[2021-11-19 08:30] LABS: Glucose Point of Care 101 mg/dl (65-105)
[2021-11-19] MEDS: ENOXAPARIN 40 MG/0.4 ML SYRINGE SUB-Q (09:26)
[2021-11-19] MEDS: FUROSEMIDE 40 MG TABLET PO (09:27)
[2021-11-19] MEDS: LOSARTAN POTASSIUM 100 MG TABLET PO (09:27)
[2021-11-19] MEDS: POTASSIUM CHLORIDE 20 MEQ TABLET 40 MEQ PO (09:28)
[2021-11-19] MEDS: SPIRONOLACTONE 25 MG TABLET PO (09:28)
[2021-11-19] MEDS: POTASSIUM CHLORIDE 20 MEQ TABLET.ER PO (09:31)
[2021-11-19] MEDS: ALPRAZolam (*CRX) 0.5 MG TABLET PO ×3 (09:32→23:34)
--- NOTE | 2021-11-19 12:13 | PM.PNCARD ---
Progress Note: A&P Assessment and Plan (1) Chest pain: Code(s): R07.9 - Chest pain, unspecified Status: Acute Assessment and Plan: Lexiscan myocardial perfusion study on Sunday (2) Obstructive sleep apnea treated with BiPAP: Code(s): G47.33 - Obstructive sleep apnea (adult) (pediatric) Status: Acute (3) Chronic obstructive pulmonary disease: Code(s): J44.9 - Chronic obstructive pulmonary disease, unspecified Status: Acute (4) Acute and chronic respiratory failure: Qualifiers: Respiratory failure complication: unspecified whether with hypoxia or hypercapnia Qualified Code(s): J96.20 - Acute and chronic respiratory failure, unspecified whether with hypoxia or hypercapnia Code(s): J96.20 - Acute and chronic respiratory failure, unspecified whether with hypoxia or hypercapnia Status: Acute Assessment and Plan: Secondary to a combination of COPD and heart failure (5) Chronic atrial fibrillation: Code(s): I48.20 - Chronic atrial fibrillation, unspecified Status: Acute Assessment and Plan: Rate controlled if anything she is a bit bradycardic. Will reduce her carvedilol to 6.25 mg p.o. b.i.d.. Eliquis is on hold because of possible need for angiogram depending on her stress test on Sunday. 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 She did receive a DVT dose of enoxaparin today. Subjective Date/time seen: 11/19/21 12:13 Interval history: This is a 76-year-old female with multiple medical problems including chronic respiratory failure on oxygen, obstructive sleep apnea, COPD, congestive heart failure, atrial fibrillation, and anxiety who presented to the emergency department earlier this afternoon via EMS from home for evaluation of shortness of breath. She endorses chronic dyspnea on exertion though she has become increasingly short of breath on lesser and lesser exertion over the past 1 week or so. She also had some chest tightness. Date of service 11/19/2021: No longer having any chest pain. She is short of breath doing mild activity. Review of Systems Constitutional: Constitutional: Reports no additional constitutional complaints Eyes: Eyes: Reports no additional eye complaints ENT: Reports system reviewed and no additional complaints, except as documented Cardiovascular: Cardiovascular: Reports as per HPI and Reports dyspnea on exertion Respiratory: Respiratory: Reports dyspnea on exertion Gastrointestinal: Gastrointestinal: Reports no additional gastrointestinal complaints Musculoskeletal: Musculoskeletal: Reports no additional musculoskeletal complaints Integumentary/Breasts: Skin/Breast: Reports system reviewed and no additional complaints, except as docu Neurologic: Reports system reviewed and no additional complaints, except as documented Endocrine: Endocrine: Reports no additional endocrine complaints Hematologic/Lymphatic: Hematologic/Lymphatic: Reports no additional hematologic/lymphatic complaints Allergic/Immunologic: Allergic/Immunologic: Reports no additional allergic/immunologic complaints Exam Const: General: comfortable and no acute distress Other: Morbidly obese white female pleasant cooperative no distress of any kind HENMT: Mouth: Yes moist mucous membranes Eyes: Sclera: sclerae normal Pupils: Equal, round and reactive pupils present Neck: Neck: supple and no JVD Other: Carotid pulses are intact bilaterally I do not hear any bruits over the neck Resp: Effort & Inspection: normal respiratory effort Other: Breath sounds are markedly diminished in both lung tang no active rales or rhonchi Cardio: Rhythm: abnormal rhythm irregularly irregular Other: The PMI is not palpable because of her body habitus from no audible murmur or gallop GI: Auscultation: normal bowel angela
[2021-11-19 13:04] LABS: Glucose Point of Care 107 mg/dl (65-105)
--- NOTE | 2021-11-19 13:49 | PM.IMPN ---
Progress Note: A&P Assessment and Plan (1) Chest pain: Code(s): R07.9 - Chest pain, unspecified Status: Acute Assessment and Plan: This is a 76-year-old female with multiple medical problems including chronic respiratory failure on oxygen, obstructive sleep apnea, COPD, congestive heart failure, atrial fibrillation, and anxiety who presented to the emergency department earlier this afternoon via EMS from home for evaluation of shortness of breath. She endorses chronic dyspnea on exertion though she has become increasingly short of breath on lesser and lesser exertion over the past 1 week or so. She also had some chest tightness. She has rule out for acute coronary syndrome by serial troponins. Given exertional dyspnea and chest pressure she will undergo a stress test on Sunday morning per Dr. Harper Icer Hand He also recommends holding apixaban on Sunday so if her stress test comes back abnormal them they can proceed with coronary angiography. Currently she is on Lovenox 40 mg daily given the half-life of Eliquis. She will be started on Lovenox 130 q.12 hours starting 11/20/21 AM for DVT and PE prophylaxis for chronic AFib Denies any more chest pain at this time. Continue monitoring. Appreciate cardiology's input. (2) Elevated troponin: Code(s): R77.8 - Other specified abnormalities of plasma proteins Status: Acute Assessment and Plan: Plan is as detailed above. (3) Hypertension: Qualifiers: Hypertension type: essential hypertension Qualified Code(s): I10 - Essential (primary) hypertension Code(s): I10 - Essential (primary) hypertension Status: Acute Assessment and Plan: Blood pressure this afternoon was 128/59. Well controlled this time. Fluctuations in blood pressure most likely due to anxiety. Continue monitoring. Appreciate cardiology's input with any adjustments. (4) Type 2 diabetes mellitus: Code(s): E11.9 - Type 2 diabetes mellitus without complications Status: Acute Assessment and Plan: Diet-controlled. Recent hemoglobin A1c was less than 6%. Continue monitoring glucose a.c. HS. Hypoglycemic protocol in place. Sliding scale insulin. (5) Chronic diastolic congestive heart failure: Code(s): I50.32 - Chronic diastolic (congestive) heart failure Status: Acute Assessment and Plan: Clinically compensated. (6) Chronic atrial fibrillation: Code(s): I48.20 - Chronic atrial fibrillation, unspecified Status: Acute Assessment and Plan: Rate controlled on carvedilol. Hold apixaban starting Sunday as detailed above. (7) Chronic obstructive pulmonary disease: Code(s): J44.9 - Chronic obstructive pulmonary disease, unspecified Status: Acute Assessment and Plan: No significant wheezing noted on exam. Nebulizers available q.6 hours as needed. She received a dose of Solu-Medrol in the emergency department though given lack of significant bronchospasm will hold on scheduling any further steroids. Lungs are clear at this time. She does not need any steroids at this time. (8) Obstructive sleep apnea treated with BiPAP: Code(s): G47.33 - Obstructive sleep apnea (adult) (pediatric) Status: Acute Assessment and Plan: BiPAP will be provided for the patient to use while hospitalized. (9) Vaginal yeast infection: Code(s): B37.3 - Candidiasis of vulva and vagina Status: Acute Assessment and Plan: Patient feels like she is having a vaginal yeast infection and she usually us
[2021-11-19 17:02] LABS: Glucose Point of Care 99 mg/dl (65-105)
--- NOTE | 2021-11-19 18:46 | PM.CNPUL ---
Assessment and Plan Assessment and plan (1) Chronic respiratory failure with hypoxia: Code(s): J96.11 - Chronic respiratory failure with hypoxia Status: Acute Assessment and Plan: She has been on oxygen several years, using more oxygen than needed as her saturation is 99% on 3 L/min, and she is using 4 L/min at home. She will need a walk study before going home to adjust O2. Patients frequently increased oxygen to treat shortness of breath. We try to educate patients to use what is needed, not more. She has not been in the office over a year, last visit was virtual in May 2020. She needs a f/u appt for 2-3 weeks after discharge. (2) Obstructive sleep apnea treated with BiPAP: Code(s): G47.33 - Obstructive sleep apnea (adult) (pediatric) Status: Acute Assessment and Plan: She appears to be on BiPAP 12/06. She has not had recent compliance data. I do not see her sleep study, and this is an odd setting. She says that she has been on this for years. She may need a repeat study after discharge. Her most recent ABG was 03/22/2021 pH 7.38/pCO2 47.8/pO2 66/HCO3 28 on 2.5 L/minute. (3) Chronic obstructive pulmonary disease: Code(s): J44.9 - Chronic obstructive pulmonary disease, unspecified Status: Acute Assessment and Plan: Was diagnosed with COPD in 1994, quit tobacco around 2000 after decades smoking 2-3 ppd. She is using Symbicort and albuterol for COPD Rx. She may benefit from changing to dual bronchodilator therapy for control of COPD at discharge. She also needs albuterol refilled for use in her nebulizer. (4) Pulmonary hypertension: Code(s): I27.20 - Pulmonary hypertension, unspecified Status: Acute Assessment and Plan: This is secondary pulmonary hypertension due to COPD, chronic respiratory failure with O2 use, ALBERTO. Last RVSP was 50 mmHg on echo 05/26/2020. History of Present Illness History of Present Illness Consult date: 11/19/21 Requesting physician: Miguel Angel Murdock PA-C Reason for consult: COPD Chief complaint: acute chest pain Narrative: NEW CONSULT: Cheyenne Sawyer is a 76 year old female with COPD, chronic respiratory failure on O2 use at 4 L/min and ALBERTO on PAP therapy was admitted with chest pain. She is our pulmonary clinic patient and her last visit was a virtual visit in May of 2020. She uses oxygen at home 4 L a minute and says that her saturation is usually 99%. She has increased her O2 flow on her own. She also has sleep apnea and uses her PAP therapy regularly. She said that 5 days prior to admission she started having increasing shortness of breath. She also noted that her saturation which is normally 99% at rest started dropping more than usual with exertion. She often notes that her saturation normally drops to 96% or even 93% but with exertion her saturation dropped to 88%which worried her. She did not have cough, sputum production, sore throat, fever, wheezing, nasal congestion or drainage or other pulmonary symptoms. She developed substernal chest pain which was intermittent and aggravated by exertion. with rest, the pain resolved in 5 minutes. She has a nebulizer that she uses only for worsening shortness of breath. In the last week she used it twice, and would have used it more often however she ran out of albuterol. Her usual COPD medication is Symbicort. Her CXR shows cardiomegaly, no infiltrate or edema. She is having a workup for ischemia with a Lexiscan Sunday. She has pulmonary hypertension, RVSP was 63 in 2019, and on echo 2019 the RVSP was 50 mmHg. She has not had a COVID vaccination, she does avoid spending time with others. She tells me that several of her friends and family members who have been vaccinated against COVID have . She g
[2021-11-19] MEDS: MICONAZOLE NITRATE 2% VAGINAL CREAM 45 GM TUBE 1 APPFUL VAGINAL (20:24)
[2021-11-19] MEDS: carvediloL 6.25 MG TABLET PO (20:25)
[2021-11-19 21:27] LABS: Glucose Point of Care 104 mg/dl (65-105)
[2021-11-20] VITALS (26 sets, daily range): BP systolic 125–151; BP diastolic 55–80; PULSE 59–102; RESP 16–22; TEMP 36.1–36.8; O2SAT 89–99
[2021-11-20] MEDS: ALBUTEROL SULFATE NEB 2.5 MG/0.5 ML INH 5 MG INHALATION ×3 (01:09→15:05)
[2021-11-20 05:19] LABS: Hematocrit 33.4 % (37.0-47.0); Hemoglobin 9.6 g/dL (12.0-15.0); Mean Corpuscular HGB Conc 28.7 g/dl (32-36); Mean Corpuscular Hemoglobin 28.3 pg (26-34); Mean Corpuscular Volume 98.5 fl (80-100); Mean Platelet Volume 9.1 fl (7.4-10.4); Platelet Count Result 359 k/mm3 (150-375); Red Blood Count 3.39 M/mm3 (4.2-5.4); Red Cell Distribution Width 15.5 % (11.5-14.5); White Blood Count 7.7 K/mm3 (4.5-10.0)
[2021-11-20 05:32] LABS: Anion Gap 5 mmol/L (8-16); Blood Urea Nitrogen 12 mg/dL (7-17); Calcium 8.1 mg/dL (8.4-10.2); Carbon Dioxide 27 mmol/L (22-30); Chloride 103 mmol/L (98-107); Estimated CRCL calculation 83 ml/min; Estimated Glomerular Filt Rate > 60; Glucose 89 mg/dL (65-110); Magnesium 2.4 mg/dL (1.6-2.3); Potassium 3.4 mmol/L (3.4-5.0); Sodium 135 mmol/L (137-145)
[2021-11-20] MEDS: ALBUTEROL SULFATE NEB 2.5 MG/0.5 ML INH INHALATION (05:48)
[2021-11-20] MEDS: HYDROcodone/acetaminophen (*CRX) 10-325 MG TABLET 1 TAB PO ×3 (06:33→18:34)
[2021-11-20] MEDS: POTASSIUM CHLORIDE 20 MEQ TABLET.ER PO (08:35)
[2021-11-20] MEDS: ALPRAZolam (*CRX) 0.5 MG TABLET PO ×2 (08:36→17:59)
[2021-11-20] MEDS: LOSARTAN POTASSIUM 100 MG TABLET PO (08:36)
[2021-11-20] MEDS: SPIRONOLACTONE 25 MG TABLET PO (08:36)
[2021-11-20] MEDS: carvediloL 6.25 MG TABLET PO ×2 (08:36→21:03)
[2021-11-20] MEDS: hydrALAZINE 10 MG TABLET PO ×2 (08:37→21:03)
[2021-11-20] MEDS: FUROSEMIDE 40 MG TABLET PO (08:37)
[2021-11-20] MEDS: ENOXAPARIN 100 MG/ML SYRINGE SUB-Q ×2 (08:38→21:03)
[2021-11-20] MEDS: ENOXAPARIN 30 MG/0.3 ML SYRINGE SUB-Q ×2 (08:39→21:03)
[2021-11-20] MEDS: TOLNAFTATE 1% POWDER 45 GM BTL 1 APPLIC TOPICAL ×2 (08:39→21:04)
[2021-11-20 08:43] LABS: Glucose Point of Care 88 mg/dl (65-105)
--- NOTE | 2021-11-20 09:55 | PM.PNCARD ---
Progress Note: A&P Assessment and Plan (1) Chest pain: Code(s): R07.9 - Chest pain, unspecified Status: Acute Assessment and Plan: Lexiscan myocardial perfusion study tomorrow. NPO after midnight. (2) Obstructive sleep apnea treated with BiPAP: Code(s): G47.33 - Obstructive sleep apnea (adult) (pediatric) Status: Acute (3) Chronic obstructive pulmonary disease: Code(s): J44.9 - Chronic obstructive pulmonary disease, unspecified Status: Acute (4) Acute and chronic respiratory failure: Qualifiers: Respiratory failure complication: unspecified whether with hypoxia or hypercapnia Qualified Code(s): J96.20 - Acute and chronic respiratory failure, unspecified whether with hypoxia or hypercapnia Code(s): J96.20 - Acute and chronic respiratory failure, unspecified whether with hypoxia or hypercapnia Status: Acute Assessment and Plan: Secondary to a combination of COPD and heart failure (5) Chronic atrial fibrillation: Code(s): I48.20 - Chronic atrial fibrillation, unspecified Status: Acute Assessment and Plan: Rate controlled if anything she is a bit bradycardic. Continue lower dose carvedilol to 6.25 mg p.o. b.i.d.. Eliquis is on hold because of possible need for angiogram depending on her stress test on Sunday. 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 On full dose enoxaparin at this point. Depending on results of her stress test tomorrow, transition back to Eliquis (7) Hypokalemia: Code(s): E87.6 - Hypokalemia Status: Acute Assessment and Plan: KCL 20 mEq p.o. x1 Subjective Date/time seen: 11/20/21 09:55 Interval history: This is a 76-year-old female with multiple medical problems including chronic respiratory failure on oxygen, obstructive sleep apnea, COPD, congestive heart failure, atrial fibrillation, and anxiety who presented to the emergency department earlier this afternoon via EMS from home for evaluation of shortness of breath. She endorses chronic dyspnea on exertion though she has become increasingly short of breath on lesser and lesser exertion over the past 1 week or so. She also had some chest tightness. Date of service 11/19/2021: No longer having any chest pain. She is short of breath doing mild activity. Date of service 11/20/2021: Feels okay. Eating breakfast. No chest pain, shortness of breath, swelling Review of Systems Constitutional: Constitutional: Reports no additional constitutional complaints Eyes: Eyes: Reports no additional eye complaints ENT: Reports system reviewed and no additional complaints, except as documented Cardiovascular: Cardiovascular: Reports as per HPI and Reports dyspnea on exertion Respiratory: Respiratory: Reports dyspnea on exertion Gastrointestinal: Gastrointestinal: Reports no additional gastrointestinal complaints Musculoskeletal: Musculoskeletal: Reports no additional musculoskeletal complaints Integumentary/Breasts: Skin/Breast: Reports system reviewed and no additional complaints, except as docu Neurologic: Reports system reviewed and no additional complaints, except as documented Endocrine: Endocrine: Reports no additional endocrine complaints Hematologic/Lymphatic: Hematologic/Lymphatic: Reports no additional hematologic/lymphatic complaints Allergic/Immunologic: Allergic/Immunologic: Reports no additional allergic/immunologic complaints Exam Const: General: comfortable and no acute distress Other: Morbidly obese white female pleasant cooperative no distress of any kind HENMT: Mouth: Yes moist mucous membranes Eyes: Sclera: sclerae normal Pupils: Equal, round and reactive pupils present Neck: Neck: supple and no JVD Other: Carotid pulses are intact bilaterally I do not hear any bruits over the neck Res
[2021-11-20 12:19] LABS: Glucose Point of Care 97 mg/dl (65-105)
--- NOTE | 2021-11-20 12:24 | PM.IMPN ---
Progress Note: A&P Assessment and Plan (1) Chest pain: Code(s): R07.9 - Chest pain, unspecified Status: Acute Assessment and Plan: This is a 76-year-old female with multiple medical problems including chronic respiratory failure on oxygen, obstructive sleep apnea, COPD, congestive heart failure, atrial fibrillation, and anxiety who presented to the emergency department earlier this afternoon via EMS from home for evaluation of shortness of breath. She endorses chronic dyspnea on exertion though she has become increasingly short of breath on lesser and lesser exertion over the past 1 week or so. She also had some chest tightness. She has rule out for acute coronary syndrome by serial troponins. Given exertional dyspnea and chest pressure she will undergo a stress test on Sunday morning per Dr. Harper Motion Graphics Designer He also recommends holding apixaban on Sunday so if her stress test comes back abnormal them they can proceed with coronary angiography. Currently she is on Lovenox 40 mg daily given the half-life of Eliquis. She will be started on Lovenox 130 q.12 hours starting 11/20/21 AM for DVT and PE prophylaxis for chronic AFib Denies any more chest pain at this time. Continue monitoring. Appreciate cardiology's input. (2) Elevated troponin: Code(s): R77.8 - Other specified abnormalities of plasma proteins Status: Acute Assessment and Plan: Plan is as detailed above. (3) Hypertension: Qualifiers: Hypertension type: essential hypertension Qualified Code(s): I10 - Essential (primary) hypertension Code(s): I10 - Essential (primary) hypertension Status: Acute Assessment and Plan: Blood pressure this afternoon was 147/61. Well controlled this time. Fluctuations in blood pressure most likely due to anxiety. Continue monitoring. Appreciate cardiology's input with any adjustments. (4) Type 2 diabetes mellitus: Code(s): E11.9 - Type 2 diabetes mellitus without complications Status: Acute Assessment and Plan: Diet-controlled. Recent hemoglobin A1c was less than 6%. Continue monitoring glucose a.c. HS. Hypoglycemic protocol in place. Sliding scale insulin. (5) Chronic diastolic congestive heart failure: Code(s): I50.32 - Chronic diastolic (congestive) heart failure Status: Acute Assessment and Plan: Clinically compensated. (6) Chronic atrial fibrillation: Code(s): I48.20 - Chronic atrial fibrillation, unspecified Status: Acute Assessment and Plan: Rate controlled on carvedilol. Hold apixaban starting Sunday as detailed above. (7) Chronic obstructive pulmonary disease: Code(s): J44.9 - Chronic obstructive pulmonary disease, unspecified Status: Acute Assessment and Plan: Auditory wheezing auscultated. Nebulizers available q.6 hours as needed. She received a dose of Solu-Medrol in the emergency department though given lack of significant bronchospasm will hold on scheduling any further steroids. Lungs are clear at this time. Dr. Tomlinson was consulted on the patient and saw her yesterday. I talked to her over the phone about the auditory wheezing and recommended cornet valve to help with secretion and phlegm production. Will also order Incentive spirometer. She does not need any steroids at this time. (8) Obstructive sleep apnea treated with BiPAP: Code(s): G47.33 - Obstructive sleep apnea (adult) (pediatric) Status: Acute Assessment and Plan: BiPAP will be provided for the patient to use while hospitalized.
[2021-11-20] MEDS: POTASSIUM CHLORIDE 20 MEQ TABLET 40 MEQ PO (13:21)
[2021-11-20] MEDS: POTASSIUM CHLORIDE 20 MEQ TABLET PO (13:21)
[2021-11-20 17:14] LABS: Glucose Point of Care 104 mg/dl (65-105)
[2021-11-20] MEDS: MICONAZOLE NITRATE 2% VAGINAL CREAM 45 GM TUBE 1 APPFUL VAGINAL (21:04)
[2021-11-20 21:45] LABS: Glucose Point of Care 102 mg/dl (65-105)
[2021-11-21] VITALS (20 sets, daily range): BP systolic 135–155; BP diastolic 62–97; PULSE 60–100; RESP 14–22; TEMP 36.2–36.8; O2SAT 92–99
--- NOTE | 2021-11-21 | EST_ITS ---
Patient Info Name: Cheyenne Sawyer Age: 76 years : 1945 Gender: Female Ht: 65 in Wt: 280 lbs BSA: 2.49 m2 HR: 84 bpm BP: 134 / 65 mmHg Heart Rhythm: Sinus Rhythm Exam Date: 11/21/2021 10:38 AM Exam Location: [facility] Stress Patient Status: Inpatient Admit Date: 11/18/2021 Staff Ordering Physician: Abhay Harper MD Attending Provider: Marti Holley PA-C Exercise Technologist: Ester Nielson CT Exercise Physician: Sheyla Lyon NP Exam Type: CA stress skye w NM Study Info Indications R07.9 - Chest pain, unspecified A regadenoson stress test was performed. Summary 1. Atrial fibrillation. 2. Right bundle branch block. 3. No ischemic changes following Lexiscan injection. 4. Clinically and electrocardiographically uneventful Lexiscan stress test. 5. Myocardial perfusion imaging exam to be reported by the Radiology Department. Protocol: Lexiscan Stress ECG Details Stage: REST Duration (min): 0 min : 59 sec HR (bpm): 81 SBP (mmHg): 134 DBP (mmHg): 65 Stage: REST Duration (min): 6 min : 53 sec HR (bpm): 85 SBP (mmHg): 134 DBP (mmHg): 65 Stage: STAGE 1 Duration (min): 0 min : 59 sec HR (bpm): 99 SBP (mmHg): 138 DBP (mmHg): 70 Stage: RECOVERY Duration (min): 1 min : 0 sec HR (bpm): 97 SBP (mmHg): 138 DBP (mmHg): 70 Stage: RECOVERY Duration (min): 2 min : 0 sec HR (bpm): 97 SBP (mmHg): 138 DBP (mmHg): 70 Stage: RECOVERY Duration (min): 3 min : 0 sec HR (bpm): 88 SBP (mmHg): 133 DBP (mmHg): 64 Stage: RECOVERY Duration (min): 3 min : 1 sec HR (bpm): 89 SBP (mmHg): 133 DBP (mmHg): 64 Rest HR: 85 bpm Peak HR: 103 bpm Rest Sys BP: 134 mmHg Peak Sys BP: 138 mmHg Max Pred HR: 146 bpm % Max Pred HR: 71 % Target HR: 124 bpm Max RPP: 14,214 bpm*mmHg BP Response: Normal blood pressure response Termination Reason: Completed protocol Cardiac Symptoms: None Total Time: 1 min : 0 sec Rest Ortiz BP: 65 mmHg Peak Ortiz BP: 70 mmHg Total Dose: 0.4 mg Resting ECG Atrial fibrillation. Right bundle branch block. Stress ECG No ischemic changes following Lexiscan injection. Report Signatures
[2021-11-21] MEDS: HYDROcodone/acetaminophen (*CRX) 10-325 MG TABLET 1 TAB PO ×3 (00:05→12:25)
[2021-11-21] MEDS: ALPRAZolam (*CRX) 0.5 MG TABLET PO ×3 (00:06→17:03)
[2021-11-21] MEDS: ALBUTEROL SULFATE NEB 2.5 MG/0.5 ML INH 5 MG INHALATION ×3 (02:27→14:19)
[2021-11-21 08:18] LABS: Glucose Point of Care 97 mg/dl (65-105)
[2021-11-21] MEDS: ENOXAPARIN 30 MG/0.3 ML SYRINGE SUB-Q (08:36)
[2021-11-21] MEDS: ENOXAPARIN 100 MG/ML SYRINGE SUB-Q (08:36)
[2021-11-21] MEDS: hydrALAZINE 10 MG TABLET PO (08:37)
[2021-11-21] MEDS: carvediloL 6.25 MG TABLET PO (08:37)
[2021-11-21] MEDS: SPIRONOLACTONE 25 MG TABLET PO (08:37)
[2021-11-21] MEDS: LOSARTAN POTASSIUM 100 MG TABLET PO (08:38)
[2021-11-21] MEDS: FUROSEMIDE 40 MG TABLET PO (08:38)
[2021-11-21] MEDS: TOLNAFTATE 1% POWDER 45 GM BTL 1 APPLIC TOPICAL (08:39)
--- NOTE | 2021-11-21 11:01 | PM.PNCARD ---
Progress Note: A&P Assessment and Plan (1) Chest pain: Code(s): R07.9 - Chest pain, unspecified Status: Acute Assessment and Plan: Underwent lexiscan MPI this morning. Results are pending. Further recommendations to follow review of results. (2) Obstructive sleep apnea treated with BiPAP: Code(s): G47.33 - Obstructive sleep apnea (adult) (pediatric) Status: Acute (3) Chronic obstructive pulmonary disease: Code(s): J44.9 - Chronic obstructive pulmonary disease, unspecified Status: Acute Assessment and Plan: On home O2 (4) Acute and chronic respiratory failure: Qualifiers: Respiratory failure complication: unspecified whether with hypoxia or hypercapnia Qualified Code(s): J96.20 - Acute and chronic respiratory failure, unspecified whether with hypoxia or hypercapnia Code(s): J96.20 - Acute and chronic respiratory failure, unspecified whether with hypoxia or hypercapnia Status: Acute Assessment and Plan: Secondary to a combination of COPD and heart failure (5) Chronic atrial fibrillation: Code(s): I48.20 - Chronic atrial fibrillation, unspecified Status: Acute Assessment and Plan: Rate controlled in the 80's currently. Continue lower dose carvedilol to 6.25 mg p.o. b.i.d.. Eliquis is on hold because of possible need for angiogram depending on her stress test results today. (6) Chronic anticoagulation: Code(s): Z79.01 - USP (current) use of anticoagulants Status: Acute Assessment and Plan: Previously on Eliquis. On full dose enoxaparin at this point. Depending on results of her stress test today, transition back to Eliquis. (7) Hypokalemia: Code(s): E87.6 - Hypokalemia Status: Acute Assessment and Plan: WNL today Subjective Date/time seen: 11/21/21 11:01 Interval history: This is a 76-year-old female with multiple medical problems including chronic respiratory failure on oxygen, obstructive sleep apnea, COPD, congestive heart failure, atrial fibrillation, and anxiety who presented to the emergency department earlier this afternoon via EMS from home for evaluation of shortness of breath. She endorses chronic dyspnea on exertion though she has become increasingly short of breath on lesser and lesser exertion over the past 1 week or so. She also had some chest tightness. Date of service 11/19/2021: No longer having any chest pain. She is short of breath doing mild activity. Date of service 11/20/2021: Feels okay. Eating breakfast. No chest pain, shortness of breath, swelling Date of service 11/21/2021: Denies any chest pain, feeling well overall. Complaining of urinary urgency after being given lasix. Review of Systems Constitutional: Constitutional: Reports no additional constitutional complaints Eyes: Eyes: Reports no additional eye complaints ENT: Reports system reviewed and no additional complaints, except as documented Cardiovascular: Cardiovascular: Reports as per HPI and Reports dyspnea on exertion Respiratory: Respiratory: Reports dyspnea on exertion Gastrointestinal: Gastrointestinal: Reports no additional gastrointestinal complaints Musculoskeletal: Musculoskeletal: Reports no additional musculoskeletal complaints Integumentary/Breasts: Skin/Breast: Reports system reviewed and no additional complaints, except as docu Neurologic: Reports system reviewed and no additional complaints, except as documented Endocrine: Endocrine: Reports no additional endocrine complaints Hematologic/Lymphatic: Hematologic/Lymphatic: Reports no additional hematologic/lymphatic complaints Allergic/Immunologic: Allergic/Immunologic: Reports no additional allergic/immunologic complaints Exam Const: General: comfortable and no acute distress Other: Morbidly obese white female. Alert and oriented. HENMT: Mouth: Yes moist mucous membranes Eyes: Sclera: sclerae
[2021-11-21 12:06] LABS: Glucose Point of Care 81 mg/dl (65-105)
--- NOTE | 2021-11-21 13:44 | PCPTNOTE ---
Patient refused treatment this session due to having a lot of testing in the morning and reported she is too tired right now.
--- NOTE | 2021-11-21 16:53 | P.DS_ITS ---
DS: Admitting Diagnosis Discharge Date 11/21/2021 Admitting Diagnosis Chest pain DS: Discharge Diagnosis Discharge Diagnosis (1) Chest pain: Code(s): R07.9 - Chest pain, unspecified Status: Acute Assessment and Plan: Patient presented with chest pain and tightness * She was seen in consultation by Cardiology * Given exertional dyspnea and chest pressure she underwent Lexiscan stress testing on 11/21/2021 * Her Eliquis was held and she was transitioned to therapeutic Lovenox while awaiting stress test in the event cardiac catheterization was indicated * Stress test showed large moderate severity fixed perfusion defect involving apical to basal anterior wall and mid to basal anterolateral wall of left ventricle. EF measured >70% * No further intervention required at this time. Patient transitioned back to Eliquis * Chest pain resolved. * She will need outpatient cardiology follow-up * Started on atorvastatin 20 mg daily. Discussed with cardiology regarding initiation of aspirin. Deferring at this time and will consider at outpatient follow-up (2) Elevated troponin: Code(s): R77.8 - Other specified abnormalities of plasma proteins Status: Acute Assessment and Plan: Troponin slightly elevated with peak at 0.075 * Seen in consultation by Cardiology. Not felt to be consistent with acute coronary syndrome * Stress test performed as above (3) Hypertension: Qualifiers: Hypertension type: essential hypertension Qualified Code(s): I10 - Essential (primary) hypertension Code(s): I10 - Essential (primary) hypertension Status: Acute Assessment and Plan: Blood pressure reviewed and was reasonably controlled * Continue home regimen including hydralazine, losartan, spironolactone * Carvedilol decreased to 6.125 mg b.i.d. per Cardiology recommendations (4) Type 2 diabetes mellitus: Code(s): E11.9 - Type 2 diabetes mellitus without complications Status: Acute Assessment and Plan: Diet-controlled. * Recent hemoglobin A1c was less than 6%. (5) Chronic diastolic congestive heart failure: Code(s): I50.32 - Chronic diastolic (congestive) heart failure Status: Acute Assessment and Plan: Clinically compensated. * Continue Furosemide and spironolactone * Heart healthy diet (6) Chronic atrial fibrillation: Code(s): I48.20 - Chronic atrial fibrillation, unspecified Status: Acute Assessment and Plan: Rate remained controlled * Carvedilol decreased as she was at times a bit bradycardic. 6.125 mg BID * Continue Eliquis for stroke prophylaxis (7) Chronic obstructive pulmonary disease: Code(s): J44.9 - Chronic obstructive pulmonary disease, unspecified Status: Acute Assessment and Plan: Noted to have audible wheezing on admission * Case discussed with pulmonology by prior provider * Improvement with nebulized breathing treatments * Lungs are clear to auscultation and no evidence of significant bronchospasm, therefore IV steroids deferred * No wheezing on my exam * Continue cornet valve to mobilize secretions and incentive spirometer (8) Obstructive sleep apnea treated with BiPAP: Code(s): G47.33 - Obstructive sleep apnea (adult) (pediatric) Status: Acute Assessment and Plan: Continue home BiPAP (9) Vaginal yeast infection: Code(s): B37.3 - Candidiasis of vulva and vagina Status: Acute Assess
--- NOTE | 2021-11-21 16:53 | PM.DS ---
DS: Admitting Diagnosis Discharge Date 11/21/2021 Admitting Diagnosis Chest pain DS: Discharge Diagnosis Discharge Diagnosis (1) Chest pain: Code(s): R07.9 - Chest pain, unspecified Status: Acute Assessment and Plan: Patient presented with chest pain and tightness She was seen in consultation by Cardiology Given exertional dyspnea and chest pressure she underwent Lexiscan stress testing on 11/21/2021 Her Eliquis was held and she was transitioned to therapeutic Lovenox while awaiting stress test in the event cardiac catheterization was indicated Stress test showed large moderate severity fixed perfusion defect involving apical to basal anterior wall and mid to basal anterolateral wall of left ventricle. EF measured >70% No further intervention required at this time. Patient transitioned back to Eliquis Chest pain resolved. She will need outpatient cardiology follow-up Started on atorvastatin 20 mg daily. Discussed with cardiology regarding initiation of aspirin. Deferring at this time and will consider at outpatient follow-up (2) Elevated troponin: Code(s): R77.8 - Other specified abnormalities of plasma proteins Status: Acute Assessment and Plan: Troponin slightly elevated with peak at 0.075 Seen in consultation by Cardiology. Not felt to be consistent with acute coronary syndrome Stress test performed as above (3) Hypertension: Qualifiers: Hypertension type: essential hypertension Qualified Code(s): I10 - Essential (primary) hypertension Code(s): I10 - Essential (primary) hypertension Status: Acute Assessment and Plan: Blood pressure reviewed and was reasonably controlled Continue home regimen including hydralazine, losartan, spironolactone Carvedilol decreased to 6.125 mg b.i.d. per Cardiology recommendations (4) Type 2 diabetes mellitus: Code(s): E11.9 - Type 2 diabetes mellitus without complications Status: Acute Assessment and Plan: Diet-controlled. Recent hemoglobin A1c was less than 6%. (5) Chronic diastolic congestive heart failure: Code(s): I50.32 - Chronic diastolic (congestive) heart failure Status: Acute Assessment and Plan: Clinically compensated. Continue Furosemide and spironolactone Heart healthy diet (6) Chronic atrial fibrillation: Code(s): I48.20 - Chronic atrial fibrillation, unspecified Status: Acute Assessment and Plan: Rate remained controlled Carvedilol decreased as she was at times a bit bradycardic. 6.125 mg BID Continue Eliquis for stroke prophylaxis (7) Chronic obstructive pulmonary disease: Code(s): J44.9 - Chronic obstructive pulmonary disease, unspecified Status: Acute Assessment and Plan: Noted to have audible wheezing on admission Case discussed with pulmonology by prior provider Improvement with nebulized breathing treatments Lungs are clear to auscultation and no evidence of significant bronchospasm, therefore IV steroids deferred No wheezing on my exam Continue cornet valve to mobilize secretions and incentive spirometer (8) Obstructive sleep apnea treated with BiPAP: Code(s): G47.33 - Obstructive sleep apnea (adult) (pediatric) Status: Acute Assessment and Plan: Continue home BiPAP (9) Vaginal yeast infection: Code(s): B37.3 - Candidiasis of vulva and vagina Status: Acute Assessment and Plan: Reported to prior provider symptoms consistent with vaginal yeast infection for which she typically uses vaginal Monistat Started on vaginal Monistat applications. Continue for 7 nights DS: Summary Hospital Course Hospital Course: Date of admission: 11/18/2021 Date of discharge: 11/21/2021 Cheyenne Sawyer is a 76-year-old female with multiple medical problems including chronic respiratory failure on oxygen, obstructive sleep apnea, COPD, congest
--- NOTE | 2021-11-21 17:57 | PC.NURSE ---
11/21/21 17:49 Patient discharged to home. Education was provided, patient had no further questions at this time.
== END 2021-11-21 17:49 | disposition home or self-care (01) | DRG 313 ==
LOC: ANHED 11:57 → ANHIMU 14:04
PROVIDERS: Physician Assistant; Admitting Provider Internal Medicine; Emergency Provider Emergency Medicine; PCP Family Medicine; Visit Provider Physician Assistant
DX: R07.9 Chest pain, unspecified (principal); I50.32 Chronic diastolic (congestive) heart failure; I48.20 Chronic atrial fibrillation, unspecified; Z68.42 Body mass index [BMI] 45.0-49.9, adult; J96.11 Chronic respiratory failure with hypoxia; R79.89 Other specified abnormal findings of blood chemistry; I11.0 Hypertensive heart disease with heart failure; G47.33 Obstructive sleep apnea (adult) (pediatric); B37.3 Candidiasis of vulva and vagina; Z20.822 Contact with and (suspected) exposure to COVID-19; F41.9 Anxiety disorder, unspecified; M19.90 Unspecified osteoarthritis, unspecified site; G89.4 Chronic pain syndrome; I27.23 Pulmonary hypertension due to lung diseases and hypoxia; J43.9 Emphysema, unspecified; K21.9 Gastro-esophageal reflux disease without esophagitis; M81.0 Age-related osteoporosis without current pathological fracture; E11.42 Type 2 diabetes mellitus with diabetic polyneuropathy; Z96.651 Presence of right artificial knee joint; E66.01 Morbid (severe) obesity due to excess calories; E87.6 Hypokalemia; Z79.01 Long term (current) use of anticoagulants; Z99.81 Dependence on supplemental oxygen; Z85.42 Personal history of malignant neoplasm of other parts of uterus; Z90.49 Acquired absence of other specified parts of digestive tract; Z98.84 Bariatric surgery status; Z90.710 Acquired absence of both cervix and uterus; Z87.891 Personal history of nicotine dependence
CPT/HCPCS: 36415; 71046; 78452; 80048; 80053; 82948; 83036; 83735; 83880; 84132; 84484; 85025; 85027; 85610; 85730; 87070; 87205; 93005; 93017; 94640; 94667; 96374; 97162; 97165; 99285; A9270; A9502; C9803; J1650; J2785; J2930; U0003; U0005

== ENCOUNTER 2021-12-14 23:15 | Emergency (ER) | payer MEDICARE, OTHER, SELFPAY ==
--- NOTE | ~2021-12-14 | XR_ITS ---
EXAMINATION: XR knee LT 3V DATE: 12/15/2021 00:21 INDICATION: Left knee pain TECHNIQUE: Three views of the left knee were obtained. COMPARISON: 05/01/2015 FINDINGS: Alignment is normal. No fracture or osteochondral lesion. There is unchanged moderate osteo arthritis of the medial compartment and mild osteoarthritis of the lateral and patellofemoral compart ments. No joint effusion/synovitis. Calcified atherosclerosis is noted. IMPRESSION: 1. No acute osseous abnormality. Reviewed, dictated and finalized at location A. [employer]
--- NOTE | ~2021-12-14 | CT_ITS ---
EXAMINATION: CT cervical spine wo con DATE: 12/15/2021 00:24 INDICATION: Head injury TECHNIQUE: Computed tomography (CT) of the cervical spine was performed without intravenous contrast. The dose-length product (DLP) was 628.64 mGy-cm. Automated exposure control and iterative reconstruc tion technique were employed. COMPARISON: 07/27/2019 FINDINGS: There is no fracture. There are 2 mm of anterolisthesis of C3 on C4 and 2 mm of retrolisthe sis of C4 on C5. The odontoid is intact. The vertebral body heights are maintained. There is moderate loss of intervertebral disc space height from C4-5 through C6-7. There is moderate facet and uncover tebral joint osteoarthritis. Emphysema is noted. IMPRESSION: 1. Severe cervical spondylosis without acute findings or significant interval change. Reviewed, dictated and finalized at location A. ING PATROLLER IMPRESSION: 1. Severe cervical spondylosis without acute findings or significant interval c brandon.
--- NOTE | ~2021-12-14 | CT_ITS ---
EXAMINATION: CT brain wo con INDICATION: Head injury COMPARISON: 03/22/2021 TECHNIQUE: Standard unenhanced head CT. The dose-length product (DLP) was 681.00 mGy-cm. The mA was a djusted according to patient size. Iterative reconstruction technique was employed. FINDINGS: There is no intracranial hemorrhage, acute infarction, or abnormal mass lesion. The ventric les are normal. There is no abnormal mass effect or midline shift. The vallecillo-white matter differentiat ion is normal. The basal cisterns are patent. The orbits are normal. The paranasal sinuses, mastoids and calvarium are normal. IMPRESSION: 1. No acute intracranial abnormality. Reviewed, dictated and finalized at location A. [employer] INSPECTOR
[2021-12-14 23:22] VITALS: BP 140/77; PULSE 76; RESP 16; TEMP 36.4; O2SAT 95
--- NOTE | 2021-12-14 23:48 | ED.FALL ---
HPI - Fall General Chief Complaint: Fall Stated Complaint: GLF X 2, ON BLOOD THINNERS, RT ELBOW LAC Time Seen by Provider: 12/14/21 23:36 History of Present Illness HPI Narrative: 76-year-old female presents to the emergency room via EMS status post fall x2 today patient states that her knees give out on her causing her to fall. The second fall today she lost her balance due to the knee giving out on her she fell and struck her head and also landed on her left knee patient denies any loss of consciousness. Patient is on Eliquis. Related Data Home Medications Medication Instructions Recorded Confirmed hydrocodone-acetaminophen 1 tablet PO Q6H PRN 05/26/20 11/18/21 Eliquis 5 mg PO Q12H 11/18/21 11/18/21 hydralazine 10 mg PO Q12H 11/18/21 11/18/21 Allergies Allergy/AdvReac Type Severity Reaction Status Date / Time No Known Allergies Allergy Unknown Verified 12/14/21 23:26 Review of Systems Review of Systems: CONSTITUTIONAL: Denies fever, chills, or sweats. EYES: Denies visual changes, redness, or discharge. ENT: Denies rhinorrhea, congestion, sore throat, or otalgia. CARDIOVASCULAR: Denies chest pain, palpitations, or edema. RESPIRATORY: Denies cough or dyspnea. GASTROINTESTINAL: Denies abdominal pain, nausea, vomiting, or diarrhea. GENITOURINARY: Denies dysuria or hematuria. SKIN: Denies rash or itching. Skin tear to right elbow MUSCULOSKELETAL: Denies back pain, joint pain, or myalgia. c/o left knee pain, right scalp pain NEUROLOGIC: Denies headache, numbness, dizziness, or weakness. PSYCHIATRIC: Denies anxiety or depression. [facility] Past Medical History Medical History Anxiety Arthritis Asthma Benign colon polyp Benign essential tremor Chronic anticoagulation Chronic atrial fibrillation Chronic diastolic congestive heart failure Chronic obstructive pulmonary disease Chronic pain syndrome Due to chronic back and neck pain. She is on long-term opiate therapy. Chronic respiratory failure with hypoxia, on home oxygen therapy Depression Emphysema lung Fibromyalgia Gastroesophageal reflux disease History of tobacco use Hypertension Inguinal hernia Obstructive sleep apnea Osteoporosis Peripheral neuropathy Seasonal allergies Severe pulmonary arterial systolic hypertension RVSP of 63 millimeters of mercury on echocardiogram in June 2019. Takotsubo cardiomyopathy In May 2019 with ejection fraction as low as 25 to 30%. EF improved to 65% on echo in June 2019. Type 2 diabetes mellitus with autonomic neuropathy Uterine cancer Surgical History Surgical History History of 2 sections History of cardiac cath History of cholecystectomy History of dilatation and curettage History of exploratory laparotomy With adhesiolysis. History of gastric bypass History of incisional hernia repair History of right knee joint replacement History of surgical removal of ganglion cyst History of total abdominal hysterectomy and bilateral salpingo-oophorectomy For uterine cancer. History of tubal ligation Family History Family History Mother Diabetes mellitus Acute myocardial infarction Family history of chronic obstructive pulmonary disease Family history of heart disease in male family member before age 55 Patient's mother is Father Family history of arthritis Family history of emphysema Family history of lung disease Patient's father is Sibling Family history of malignant neoplasm of uterus Family history of malignant neoplasm of ovary Patient's sister is in good health Family history of malignant neoplasm Patient's sister is Other Family history of cardiovascular disease Family history of osteoarthritis Hypertension Social History Social History (Reviewed
[2021-12-15 00:34] VITALS: BP 132/74; PULSE 72; RESP 16; O2SAT 100
[2021-12-15 00:54] LABS: Basophils Absolute Auto 0.1 K/mm3 (0.0-0.1); Basophils Percent Auto 0.7 % (0.2-1.2); Eosinophils Absolute Auto 0.2 K/mm3 (0-0.3); Eosinophils Percent Auto 2.6 % (0-4.4); Hematocrit 32.9 % (37.0-47.0); Hemoglobin 9.6 g/dL (12.0-15.0); Immature Granulocyte Absolute 0.03 K/mm3 (0.00-0.031); Immature Granulocyte Percent A 0.4 % (0-0.5); Lymphocytes Absolute Auto 1.14 K/mm3 (0.9-3.2); Lymphocytes Percent Auto 16.6 % (18.3-44.2); Mean Corpuscular HGB Conc 29.2 g/dl (32-36); Mean Corpuscular Hemoglobin 27.7 pg (26-34); Mean Corpuscular Volume 95.1 fl (80-100); Mean Platelet Volume 9.1 fl (7.4-10.4); Monocytes Absolute Auto 0.6 K/mm3 (0.1-0.6); Monocytes Percent Auto 8.4 % (2.6-8.5); Neutrophils Absolute Auto 4.9 K/mm3 (1.3-6.7); Neutrophils Percent Auto 71.3 % (45.5-73.1); Platelet Count Result 325 k/mm3 (150-375); Red Blood Count 3.46 M/mm3 (4.2-5.4); Red Cell Distribution Width 15.8 % (11.5-14.5); White Blood Count 6.9 K/mm3 (4.5-10.0)
[2021-12-15 01:22] LABS: Alanine Aminotransferase 9 U/L (4-35); Albumin Level 3.5 g/dL (3.5-5.1); Alkaline Phosphatase 175 U/L (38-126); Anion Gap 8 mmol/L (8-16); Aspartate Amino Transferase 15 U/L (14-36); Bilirubin,Total 0.3 mg/dL (0.2-1.3); Blood Urea Nitrogen 12 mg/dL (7-17); Calcium 8.6 mg/dL (8.4-10.2); Carbon Dioxide 23 mmol/L (22-30); Chloride 104 mmol/L (98-107); Estimated CRCL calculation 83 ml/min; Estimated Glomerular Filt Rate > 60; Glucose 104 mg/dL (65-110); Potassium 4.9 mmol/L (3.4-5.0); Sodium 135 mmol/L (137-145)
== END 2021-12-15 02:36 | disposition home or self-care (01) ==
PROVIDERS: Emergency Provider Nurse Practitioner Family; PCP Family Medicine
DX: S09.90XA Unspecified injury of head, initial encounter (principal); S80.02XA Contusion of left knee, initial encounter; S51.011A Laceration without foreign body of right elbow, initial encounter; I48.20 Chronic atrial fibrillation, unspecified; J43.9 Emphysema, unspecified; I50.32 Chronic diastolic (congestive) heart failure; I11.0 Hypertensive heart disease with heart failure; E11.43 Type 2 diabetes mellitus with diabetic autonomic (poly)neuropathy; G89.4 Chronic pain syndrome; J96.11 Chronic respiratory failure with hypoxia; K21.9 Gastro-esophageal reflux disease without esophagitis; M79.7 Fibromyalgia; G47.33 Obstructive sleep apnea (adult) (pediatric); F41.9 Anxiety disorder, unspecified; F32.A Depression, unspecified; Z98.84 Bariatric surgery status; Z85.42 Personal history of malignant neoplasm of other parts of uterus; Z99.81 Dependence on supplemental oxygen; Z79.01 Long term (current) use of anticoagulants; Z96.651 Presence of right artificial knee joint; Z87.891 Personal history of nicotine dependence; W18.39XA Other fall on same level, initial encounter
CPT/HCPCS: 36415; 70450; 72125; 73562; 80053; 85025; 99284

== ENCOUNTER 2022-01-10 16:43 | Inpatient (IN) | payer MEDICARE, OTHER, SELFPAY ==
[2022-01-10] VITALS (9 sets, daily range): BP systolic 127–150; BP diastolic 56–72; PULSE 82–106; RESP 14–20; TEMP 35.5–36.5; O2SAT 95–100; BMI 52.3
--- NOTE | ~2022-01-10 | CT_ITS ---
EXAMINATION: CT brain wo con DATE: 01/10/2022 17:10 INDICATION: Multiple ground-level falls. Lethargy. Patient on anticoagulant therapy. TECHNIQUE: Computed tomography (CT) of the head was performed without intravenous contrast. The mA wa s adjusted according to patient size. Iterative reconstruction technique was employed. Exam dose: 60 5.33 mGy-cm total exam DLP. COMPARISON: December 15, 2021 CT brain FINDINGS: Bilateral carotid siphon internal carotid artery calcifications. There is nonspecific dimin ished attenuation cerebral white matter, likely due to chronic small vessel ischemic changes. No intracranial mass lesion or hemorrhage or cerebrovascular accident is evident. No midline shift or mass effect. No subdural or epidural hematoma. No fracture or bone destruction of the cranial vault. There is prominent calcification along the ante rior falx. The mastoid air cells and paranasal sinuses are normally developed and aerated. IMPRESSION: Cerebral atherosclerosis and chronic small vessel ischemic changes of the cerebral white matter Reviewed, dictated and finalized at [facility]. Reviewed, dictated and finalized at location A.
--- NOTE | ~2022-01-10 | CT_ITS ---
CT hip LT wo con DATE: 01/10/2022 18:50 INDICATION: Fall. Left hip pain. TECHNIQUE: Axial CT images through the left hip seminal sagittal and coronal reconstructions. Exam dose: 481.14 mGy-cm total exam DLP. COMPARISON: 01/08/2022 pelvis and left hip FINDINGS: Extremely subtle nondisplaced fracture is suggested at the anterolateral left femoral neck (series 3 images 43, 44). MR left hip examination is recommended to more definitively confirm or excl ude fracture at this location. No other recent fracture or dislocation is evident. IMPRESSION: Suspected very subtle nondisplaced left subcapital femoral neck fracture; MR left hip exa mination is recommended to more definitively confirm or exclude fracture at this site Reviewed, dictated and finalized at [facility]. Reviewed, dictated and finalized at location A. IMPRESSION: Suspected very subtle nondisplaced left subcapital femoral neck fra cture; MR left hip examination is recommended to more definitively confirm or e xclude fracture at this site
--- NOTE | ~2022-01-10 | XR_ITS ---
EXAMINATION: XR abdomen obstructive series DATE: 01/16/2022 14:15 INDICATION: Abdominal pain TECHNIQUE: Upright and supine views of the abdomen were obtained. COMPARISON: 11/14/2019 FINDINGS: There are minimal airspace opacities of the lung bases. There are no dilated loops of bowel . No free intraperitoneal gas is identified. Changes of pelvic lymph node dissection are noted. There is moderate osteoarthritis of the hips. Severe lumbar spondylosis is noted. IMPRESSION: 1. Nonobstructive bowel gas pattern. Reviewed, dictated and finalized at location B.
--- NOTE | ~2022-01-10 | XR_ITS ---
EXAMINATION: XR chest 1V portable DATE: 01/10/2022 16:55 INDICATION: Weakness. Falls. Lethargy. TECHNIQUE: A single frontal view of the chest was obtained. COMPARISON: Chest 2 views 11/18/2021, CT abdomen and pelvis 03/22/2021 FINDINGS: Sensitivity is decreased by obesity. The patient is rotated to her left. No pneumonia, pleu ral effusion, or pneumothorax. Cardiomegaly is noted. IMPRESSION: 1. Cardiomegaly. Reviewed, dictated and finalized at location A. IMPRESSION: 1. Cardiomegaly.
--- NOTE | ~2022-01-10 | MR_ITS ---
EXAMINATION: MR hip LT wo con DATE: 01/11/2022 11:06 INDICATION: Left hip pain post fall. TECHNIQUE: Magnetic resonance imaging (MRI) of the left hip was performed without intravenous contra st. Sequences included full-field axial PD-weighted FS FSE and T1-weighted FSE, coronal of the pelvis with PD-weighted FS FSE, T2-weighted FSE and T1-weighted FSE, small field of view of the left hip w ith axial PD-weighted FS FSE, sagittal PD-weighted FS FSE, coronal PD-weighted FS FSE and coronal T2 weighted FSE. Additional radial T1-weighted FGR oriented orthogonal to the acetabular rim were obtai rosa for evaluation of the labrum. COMPARISON: CT dated 01/10/2022 FINDINGS: Assessment of the labrum and cartilage is significantly limited due to prominent motion blurring on t he smaller field of view images. Bones/labrum/cartilage: Alignment is normal. No fracture or avascular necrosis. Severe lower lumbar spondylosis with fibrofa tty degenerative endplate changes. Diffuse heterogeneous red and yellow marrow pattern. No pathologic marrow replacing process. Mild to moderate bilateral hip osteoarthritis. Subarticular cystic change along the lateral rim of the right acetabulum. Tear at the posterior left acetabular labrum with 5 mm diameter paravertebral cyst extending for 1.5 cm along the posterior rim of the acetabulum. Fluid: Symmetric physiologic amount of fluid within both hip joints. Soft tissues: Relatively symmetric fatty muscular atrophy of the musculature of the pelvis and proximal thighs. The re is feathery muscular edema along the medial pubic rami sides of the abductor musculature of the pr oximal left thigh consistent with low-grade muscle strain. The iliopsoas, gluteal and proximal hamstr ing tendons are normal. The uterus is not identified and has likely been surgically resected. Limited evaluation of visceral organs of the pelvis is otherwise unremarkable. No pathologically enlarged p elvic/inguinal lymphadenopathy. IMPRESSION: 1. No fracture or other acute osseous abnormality. 2. Mild to moderate bilateral hip osteoarthritis with tear of the left posterior acetabular labrum. 3. Low-grade muscle strains along the medial side/pubic origin of the abductor musculature of the pro ximal left thigh. Reviewed, dictated and finalized at location A. IMPRESSION: 1. No fracture or other acute osseous abnormality. 2. Mild to moderate bilateral hip osteoarthritis with tear of the left posterio r acetabular labrum. 3. Low-grade muscle strains along the medial side/pubic origin of the abductor musculature of the proximal left thigh.
--- NOTE | ~2022-01-10 | XR_ITS ---
XR knee LT 3V DATE: 01/10/2022 18:14 INDICATION: Fall. Generalized left knee pain. TECHNIQUE: 4 views COMPARISON: December 14, 2021 left knee FINDINGS: Diffuse osteopenia. There is virtual obliteration of medial compartment joint space with as sociated particular spurring, consistent with severe osteoarthritis. There is periarticular spurring at the patellofemoral compartment. No fracture or dislocation or joint effusion. Arterial calcification. IMPRESSION: Osteophytes involving particularly the medial compartment, also the patellofemoral compar tment Osteopenia No fracture or dislocation or bone destruction is evident Reviewed, dictated and finalized at location A. IMPRESSION: Osteophytes involving particularly the medial compartment, also the patellofemoral compartment Osteopenia No fracture or dislocation or bone destruction is evident
--- NOTE | ~2022-01-10 | XR_ITS ---
XR hip LT 2V w AP pelvis DATE: 01/10/2022 17:26 INDICATION: Fall. Left hip injury, pain TECHNIQUE: AP pelvis. AP, lateral and crosstable lateral views of left hip COMPARISON: None FINDINGS: There is diffuse osteopenia. There is levoscoliosis and multilevel degenerative disc disease of the lumbar spine. Bilateral pelvic surgical clips. The pubic symphysis and sacroiliac joints are intact. No pelvic fracture or bone destruction. A very subtle virtually nondisplaced subcapital femoral neck fracture on the left is not excluded. Co nsider further evaluation with CT or MR evaluation. IMPRESSION: Very subtle nondisplaced left subcapital femoral neck fracture is not excluded; further e valuation with CT or MR imaging is recommended. Diffuse osteopenia Reviewed, dictated and finalized at location A. IMPRESSION: Very subtle nondisplaced left subcapital femoral neck fracture is n ot excluded; further evaluation with CT or MR imaging is recommended. Diffuse osteopenia
--- NOTE | 2022-01-10 16:45 | ECG_ITS ---
Measurements Intervals [place] Rate: 90 P: KS: 0 QRS: 106 QRSD: 115 T: 0 QT: 360 QTc: 443 Interpretive Statements ATRIAL FIBRILLATION INCOMPLETE RIGHT BUNDLE BRANCH BLOCK [90+ ms QRS DURATION, TERMINAL R IN V1/V2, 40+ ms S IN I/aVL/V4/V5/V6] POSSIBLE RIGHT VENTRICULAR HYPERTROPHY AND ST-T CHANGE [SOME/ALL OF: PROMINENT R IN V1, LATE TRANSITION, RAD, MAHOGANY, SSS, RIGHT PRECORDIA CAN NOT RULE OUT OLD SEPTAL MYOCARDIAL INFARCTION COMPARED TO ECG 11/18/2021 10:09:54 NO SIGNIFICANT CHANGE Electronically Signed On 01-10-2022 18:43:28 CDT by Nicki Carlisle M.D.
--- NOTE | 2022-01-10 17:27 | PC.NURSE ---
PT'S DAUGHTER EMILIA CALLED FOR AN UPDATE. PHONE # [phone]
[2022-01-10 17:40] LABS: Alveolar/Arterial O2 Gradient 96.8 mmHg; Base Excess ABG 0.2 mEq/l (+/-2.0); Fractional Inspired Oxygen 36 %; HCO3 ABG 27.1 mEq/l (22.0-26.0); Oxygen Content ABG 15.4 %vol (16.0-22.0); Oxygen Saturation ABG 96.7 % (95.0-100.0); PCO2 ABG 54.7 mmHg (35.0-45.0); PO2 ABG 96.4 mmHg (80.0-100.0); PO2 FiO2 Ratio Arterial Blood 2.68 %; Total Hemoglobin 11.3 g/dL (12.0-18.0); pH ABG 7.313 (7.350-7.450)
[2022-01-10 17:43] LABS: Device NASAL CANNULA; Modified Allen's Test Pass; Site Drawn LEFT RADIAL
--- NOTE | 2022-01-10 17:43 | ED.WEAKNESS ---
HPI - Weakness General Chief complaint: Weakness <Parris Valentine MD - Last Filed: 01/10/22 17:58> Stated complaint: lethargy/knee pain <Praris Valentine MD - Last Filed: 01/10/22 17:58> Time Seen by Provider: 01/10/22 19:04 <Parris Valentine MD - Last Filed: 01/10/22 17:58> Source: patient and EMS <Parris Valentine MD - Last Filed: 01/10/22 17:58> Mode of arrival: EMS <Parris Valentine MD - Last Filed: 01/10/22 17:58> Limitations: no limitations <Parris Valentine MD - Last Filed: 01/10/22 17:58> History of Present Illness HPI Narrative: Patient is 76 years old white female 122 kg, lives alone, called ambulance today because of gradual increased weakness over the last few days and multiple falls. Today patient was not able to get up without materials assistant. Patient use a walker, she denies any fever, chills, nausea, vomiting, chest pain, shortness of breath, back pain or abdominal pain. Complaining of left lower extremity pain, patient is full code. <Parris Valentine MD - Last Filed: 01/10/22 17:58> Related Data Home medications: Home Medications Medication Instructions Recorded Confirmed hydrocodone-acetaminophen 1 tablet PO Q6H PRN 05/26/20 01/10/22 Eliquis 5 mg PO Q12H 11/18/21 01/10/22 <Parris Valentine MD - Last Filed: 01/10/22 17:58> Allergies/Adverse reactions: Allergies Allergy/AdvReac Type Severity Reaction Status Date / Time No Known Allergies Allergy Unknown Verified 01/10/22 19:51 <Parris Valentine MD - Last Filed: 01/10/22 17:58> Review of Systems Review of Systems: CONSTITUTIONAL: Denies fever, chills, or sweats. EYES: Denies visual changes, redness, or discharge. ENT: Denies rhinorrhea, congestion, sore throat, or otalgia. CARDIOVASCULAR: Denies chest pain, palpitations, or edema. RESPIRATORY: Denies cough or dyspnea. GASTROINTESTINAL: Denies abdominal pain, nausea, vomiting, or diarrhea. GENITOURINARY: Denies dysuria or hematuria. SKIN: Denies rash or itching. MUSCULOSKELETAL: Denies back pain, joint pain, or myalgia. NEUROLOGIC: Denies headache, numbness, or weakness. PSYCHIATRIC: Denies anxiety or depression. <Parris Valentine MD - Last Filed: 01/10/22 17:58> [facility], LAT[facility] Past Medical History Medical History: Medical History (Updated 01/11/22 @ 01:22 by Catalina Arias MD) Anxiety Arthritis Asthma Benign colon polyp Benign essential tremor Chronic anticoagulation Chronic atrial fibrillation Chronic diastolic congestive heart failure Chronic obstructive pulmonary disease Chronic pain syndrome Due to chronic back and neck pain. She is on long-term opiate therapy. Chronic respiratory failure with hypoxia, on home oxygen therapy Depression Emphysema lung Fibromyalgia Gastroesophageal reflux disease History of tobacco use Hypertension Inguinal hernia Obstructive sleep apnea Osteoporosis Peripheral neuropathy Seasonal allergies Severe pulmonary arterial systolic hypertension RVSP of 63 millimeters of mercury on echocardiogram in June 2019. Takotsubo cardiomyopathy In May 2019 with ejection fraction as low as 25 to 30%. EF improved to 65% on echo in June 2019. Type 2 diabetes mellitus with autonomic neuropathy Uterine cancer <Parris Valentine MD - Last Filed: 01/10/22 17:58> Surgical History Surgical History: Surgical History History of 2 sections History of cardiac cath History of cholecystectomy History of dilatation and curettage History of exploratory laparotomy With adhesiolysis. History of gastric bypass History of incisional hernia repair History of right knee joint replacement History of surgical removal of ganglion cyst History of total abdominal hysterectomy and bilateral salpingo-oophorectomy For uterine cancer. History of tubal ligation <Parris Valentine MD - Last Filed: 01/10/22 17:58> Family History Family History: Family History (Updated 12/27
[2022-01-10 18:01] LABS: Basophils Absolute Auto 0.1 K/mm3 (0.0-0.1); Basophils Percent Auto 0.9 % (0.2-1.2); Eosinophils Absolute Auto 0.1 K/mm3 (0-0.3); Eosinophils Percent Auto 1.5 % (0-4.4); Immature Granulocyte Absolute 0.04 K/mm3 (0.00-0.031); Immature Granulocyte Percent A 0.5 % (0-0.5); Lymphocytes Absolute Auto 0.84 K/mm3 (0.9-3.2); Lymphocytes Percent Auto 10.3 % (18.3-44.2); Mean Corpuscular HGB Conc 28.9 g/dl (32-36); Mean Corpuscular Hemoglobin 27.4 pg (26-34); Mean Corpuscular Volume 94.5 fl (80-100); Mean Platelet Volume 9.3 fl (7.4-10.4); Monocytes Absolute Auto 0.5 K/mm3 (0.1-0.6); Monocytes Percent Auto 6.5 % (2.6-8.5); Neutrophils Absolute Auto 6.6 K/mm3 (1.3-6.7); Neutrophils Percent Auto 80.3 % (45.5-73.1); Platelet Count Result 316 k/mm3 (150-375); Red Blood Count 4.02 M/mm3 (4.2-5.4); Red Cell Distribution Width 16.7 % (11.5-14.5); White Blood Count 8.2 K/mm3 (4.5-10.0)
[2022-01-10 18:12] LABS: Alanine Aminotransferase 30 U/L (4-35); Albumin Level 4.4 g/dL (3.5-5.1); Alkaline Phosphatase 243 U/L (38-126); Anion Gap 6 mmol/L (8-16); Aspartate Amino Transferase 57 U/L (14-36); Bilirubin,Total 0.6 mg/dL (0.2-1.3); Blood Urea Nitrogen 14 mg/dL (7-17); Calcium 9.2 mg/dL (8.4-10.2); Carbon Dioxide 28 mmol/L (22-30); Chloride 102 mmol/L (98-107); Estimated CRCL calculation 80 ml/min; Estimated Glomerular Filt Rate > 60; Glucose 129 mg/dL (65-110); INR 1.2; Lactic Acid Reflex 1.1 mmol/L (0.7-2.1); Magnesium 2.4 mg/dL (1.6-2.3); Potassium 4.1 mmol/L (3.4-5.0); Prothrombin Time 14.6 Seconds (11.1-14.7); Sodium 136 mmol/L (137-145)
[2022-01-10 18:13] LABS: Partial Thromboplastin Time 32.6 SECONDS (22.3-36.8)
[2022-01-10 18:24] LABS: NT Pro B Type Natriuretic Pept 1580 pg/mL (5-100); Troponin I 0.018 ng/mL (0.000-0.034)
[2022-01-10 18:49] LABS: Add Urine Microscopic? YES; Appearance Urine Cloudy (Clear); Bacteria Urine 4+ /hpf; Bilirubin Urine Negative (Negative); Blood Urine 1+ (Negative); Color Urine Yellow (Yellow); Glucose Urine UA Negative (Negative); Ketones Urine Negative (Negative); Leukocyte Esterase Ur 1+ LEU/UL (Negative); Mucus Urine Few /lpf; Nitrate Urine Negative (Negative); Protein Urine Negative (Negative); Specific Grav Ur 1.021 (1.001-1.035); Squamous Epithelial Cell Urine Rare /hpf (Few); Urobilinogen Urine Negative mg/dL (<2.0); WBC Urine 31-50 /hpf
--- NOTE | 2022-01-10 19:42 | PM.IMHP ---
H&P: HPI History of Present Illness Date/Time: 01/10/22 19:42 Chief Complaint: Weakness. Narrative: This is a 76-year-old female with past medical history significant for COPD/emphysema, chronic hypoxic respiratory failure on supplemental oxygen at home, coronary artery disease, atrial fibrillation on chronic anticoagulation. Patient presented room due to generalized weakness for. Patient denies any fevers, any chills, any rigors, no abdominal pain had some nausea but no vomiting she usually uses a Rollator to aid with her ambulation. Patient denies any chest pain, any shortness of breath, any cough, sputum production, leg swelling, PND or orthopnea. Preliminary workup was significant for urinalysis with numerous WBCs. CT of the pelvis revealed left hip fracture as well. Patient has been admitted for further evaluation, management and treatment. Review of Systems Review of Systems: Generalized weakness, recurrent falling. Constitutional: Constitutional: Denies chills, Denies fever(s), Denies night sweats and Reports weakness Eyes: Eyes: Denies change in vision ENT: Denies dysphagia, Denies vertigo, Denies dizziness, Denies nasal congestion, Denies nasal discharge, Denies nasal obstruction and Denies odynophagia Cardiovascular: Cardiovascular: Denies syncope, Denies pedal edema, Denies leg ulcers, Denies leg edema, Denies radiating jaw, neck or arm pain, Denies palpitations, Denies dyspnea on exertion and Denies orthopnea Respiratory: Respiratory: Denies change in phlegm color, Denies cough, Denies excessive phlegm production, Denies dyspnea and Denies wheezing Gastrointestinal: Gastrointestinal: Denies abdominal pain, Denies dyspepsia, Denies heartburn, Denies diarrhea, Reports nausea and Denies vomiting Genitourinary: Genitourinary: Denies dysuria and Denies flank pain Musculoskeletal: Musculoskeletal: Reports arthralgias (Left hip) and Reports muscle weakness Integumentary/Breasts: Skin/Breast: Denies rash Neurologic: Denies dizziness, Denies focal weakness and Denies Sensory deficit (Neuro) Psychiatric: Psychiatric: Reports no additional psychiatric complaints and Reports as per HPI Endocrine: Endocrine: Denies cold intolerance, Denies heat intolerance, Denies polyphagia, Denies polydipsia and Denies palpitations Hematologic/Lymphatic: Hematologic/Lymphatic: Reports no additional hematologic/lymphatic complaints and Reports as per HPI Allergic/Immunologic: Allergic/Immunologic: Reports no additional allergic/immunologic complaints and Reports as per HPI [facility] Past Medical History Medical History (Updated 01/11/22 @ 01:22 by Catalina Arias MD) Anxiety Arthritis Asthma Benign colon polyp Benign essential tremor Chronic anticoagulation Chronic atrial fibrillation Chronic diastolic congestive heart failure Chronic obstructive pulmonary disease Chronic pain syndrome Due to chronic back and neck pain. She is on long-term opiate therapy. Chronic respiratory failure with hypoxia, on home oxygen therapy Depression Emphysema lung Fibromyalgia Gastroesophageal reflux disease History of tobacco use Hypertension Inguinal hernia Obstructive sleep apnea Osteoporosis Peripheral neuropathy Seasonal allergies Severe pulmonary arterial systolic hypertension RVSP of 63 millimeters of mercury on echocardiogram in June 2019. Takotsubo cardiomyopathy In May 2019 with ejection fraction as low as 25 to 30%. EF improved to 65% on echo in June 2019. Type 2 diabetes mellitus with autonomic neuropathy Uterine cancer Surgical History Surgical History History of 2 sections History of cardiac cath History of cholecystectomy History of dilatation and curettage History of exploratory laparotomy With adhesiolysis. History of gastric bypass History of incisional hernia repair History of right knee joint replacement History of surgical removal of ganglion cys
--- NOTE | 2022-01-10 19:49 | PC.NURSE ---
Pt no longer requiring O2 at this time. Pt does not want this RN to remove nasal cannula at this time.
--- NOTE | 2022-01-10 20:16 | PC.NURSE ---
Updated Carmita, pt daughter, by phone. [phone].
--- NOTE | 2022-01-10 20:44 | ADMGEN ---
This patient, Cheyenne Sawyer, was admitted to Medical Room 345-. Patient/family oriented to hospital policies and general routines including ID bracelet, bed and alarms, visiting hours, pain management, procedures, bathroom and other care routines, personal items, smoking policy, room service/diet, and visiting hours. Information on how to activate the Rapid Response Team has been discussed. Patient/Family are encouraged to report perceived risks to care and to ask questions if they do not understand what they are told or what they should do.
[2022-01-10] MEDS: ALBUTEROL SULFATE NEB 2.5 MG/3 ML INH INHALATION (22:10)
[2022-01-10] MEDS: ALBUTEROL SULFATE NEB 2.5 MG/0.5 ML INH (22:17)
[2022-01-10] MEDS: FLUTICASONE/SALMETEROL 45-21 MCG INHALER 1 PUFF 2 PUFF INHALATION (22:19)
[2022-01-11] VITALS (17 sets, daily range): BP systolic 125–131; BP diastolic 47–56; PULSE 77–88; RESP 16–19; TEMP 36.1–37.1; O2SAT 94–100; BMI 52.3
[2022-01-11] MEDS: fentaNYL CITRATE INJ (*CRX) 100 MCG/2 ML VIAL 50 MCG IV PUSH ×3 (01:47→13:05)
[2022-01-11] MEDS: HYDROcodone/acetaminophen (*CRX) 10-325 MG TABLET 1 TAB PO ×4 (03:23→22:36)
[2022-01-11] MEDS: FLUTICASONE/SALMETEROL 45-21 MCG INHALER 1 PUFF 2 PUFF INHALATION ×2 (09:10→21:28)
[2022-01-11] MEDS: ALBUTEROL SULFATE NEB 2.5 MG/3 ML INH INHALATION ×4 (09:10→21:29)
--- NOTE | 2022-01-11 15:34 | PM.IMPN ---
Progress Note: A&P Assessment and Plan (1) UTI (urinary tract infection): Qualifiers: Hematuria presence: without hematuria Urinary tract infection type: site unspecified Qualified Code(s): N39.0 - Urinary tract infection, site not specified Code(s): N39.0 - Urinary tract infection, site not specified Status: Acute Assessment and Plan: Continue iv rocephin UC is pending (2) Weakness: Code(s): R53.1 - Weakness Status: Acute Assessment and Plan: Likely secondary to urinary tract infection Pt to continue with PT/OT (3) Fall: Qualifiers: Encounter type: initial encounter Qualified Code(s): W19.XXXA - Unspecified fall, initial encounter Code(s): W19.XXXA - Unspecified fall, initial encounter Status: Acute Assessment and Plan: Fall precautions (4) Acute hip pain: Qualifiers: Laterality: left Qualified Code(s): M25.552 - Pain in left hip Code(s): M25.559 - Pain in unspecified hip Status: Acute Assessment and Plan: Likely secondary to trauma secondary to fall sp MRI of the hip. MRI hip is negative for fracture 1. No fracture or other acute osseous abnormality. 2. Mild to moderate bilateral hip osteoarthritis with tear of the left posterior acetabular labrum. 3. Low-grade muscle strains along the medial side/pubic origin of the abductor musculature of the proximal left thigh. (5) Obstructive sleep apnea treated with BiPAP: Code(s): G47.33 - Obstructive sleep apnea (adult) (pediatric) Status: Acute Assessment and Plan: Patient is on BiPAP according to medical records (6) Chronic obstructive pulmonary disease: Code(s): J44.9 - Chronic obstructive pulmonary disease, unspecified Status: Acute Assessment and Plan: Continue home meds (7) O2 dependent: Code(s): Z99.81 - Dependence on supplemental oxygen Status: Acute Assessment and Plan: Continue supplemental oxygen by nasal cannula (8) Atrial fibrillation: Code(s): I48.91 - Unspecified atrial fibrillation Status: Acute Assessment and Plan: Rate control and anticoagulated (9) CAD (coronary artery disease): Code(s): I25.10 - Atherosclerotic heart disease of [place] coronary artery without angina pectoris Status: Acute Assessment and Plan: Negative for chest pain (10) Gastroesophageal reflux disease: Code(s): K21.9 - Gastro-esophageal reflux disease without esophagitis Status: Inactive Assessment and Plan: Continue to monitor (11) Type 2 diabetes mellitus: Code(s): E11.9 - Type 2 diabetes mellitus without complications Status: Acute Assessment and Plan: Diet controlled patient not on any meds. Continue to monitor. Subjective Date/time seen: 01/11/22 15:34 Interval history: 76-year-old female with past medical history significant for COPD/emphysema, chronic hypoxic respiratory failure on supplemental oxygen at home, coronary artery disease, atrial fibrillation on chronic anticoagulation. Patient presented room due to generalized weakness for. Review of Systems Review of Systems: All systems reviewed & are unremarkable except as noted in HPI and below Exam Const: General: other (morbidly obesity ); No in distress Orientation/consciousness: oriented to person HENMT: Head: normal to inspection Resp: Effort & Inspection: no respiratory distress Auscultation: no rhonchi and no wheezes Cardio: Rate: regular rate Rhythm: regular rhythm GI: Inspection: normal to inspection GI Palp: No abdominal tenderness, No Guarding due to palpation present (GI) and No Hepatomegaly present Auscultation: normal bowel sounds Neuro: General: oriented to person Objective Data Vital Signs Vital Signs: Vital Signs - 24 hr 01/10/22 16:42 01/10/22 16:50 01/10/22 17:30 Temperature 36.5 C Pulse Rate 106 H 82 Respiratory R
--- NOTE | 2022-01-11 15:38 | PM.CNOR ---
Assessment and Plan Assessment and plan (1) Contusion of left hip: Qualifiers: Encounter type: initial encounter Qualified Code(s): S70.02XA - Contusion of left hip, initial encounter Code(s): S70.02XA - Contusion of left hip, initial encounter Status: Acute Assessment and Plan: ADEBAYO IS HERE FOR LEFT HIP PAIN. HER PAIN TODAY IS NOT APPARENT AND SHE HAS NO COMPLAINTS. HER PHYSICAL EXAM IS NORMAL WITH NO PAIN IN ANY EXTREMITY. HER MRI DOES NOT SHOW FRACTURE. RECOMMEND WBAT. PT NEEDED. SHE WILL F/U NEEDED FOR ANY ORTHO PROBLEMS. History of Present Illness HPI Consult date: 01/11/22 Consult reason: joint pain Chief complaint: uti Narrative: ADEBAYO IS HERE FOR LEFT HIP PAIN. SHE FELL YESTERDAY AND FELT PAIN IN THE LEFT HIP. SHE WAS SEEN IN THE ED AND XRAYS REVEALED POSSIBLE LEFT FEMORAL NECK DID CT SCAN. TODAY SHE HAS NO PAIN. HER MRI SHOWS NO FRACTURE. SHE DENIES ANY MOTHER JOINT PAIN. Review of Systems Review of Systems: All systems reviewed & are unremarkable except as noted in HPI and below PMFSH Past Medical History Medical History Anxiety Arthritis Asthma Benign colon polyp Benign essential tremor Chronic anticoagulation Chronic atrial fibrillation Chronic diastolic congestive heart failure Chronic obstructive pulmonary disease Chronic pain syndrome Due to chronic back and neck pain. She is on long-term opiate therapy. Chronic respiratory failure with hypoxia, on home oxygen therapy Depression Emphysema lung Fibromyalgia Gastroesophageal reflux disease History of tobacco use Hypertension Inguinal hernia Obstructive sleep apnea Osteoporosis Peripheral neuropathy Seasonal allergies Severe pulmonary arterial systolic hypertension RVSP of 63 millimeters of mercury on echocardiogram in June 2019. Takotsubo cardiomyopathy In May 2019 with ejection fraction as low as 25 to 30%. EF improved to 65% on echo in June 2019. Type 2 diabetes mellitus with autonomic neuropathy Uterine cancer Surgical History Surgical History History of 2 sections History of cardiac cath History of cholecystectomy History of dilatation and curettage History of exploratory laparotomy With adhesiolysis. History of gastric bypass History of incisional hernia repair History of right knee joint replacement History of surgical removal of ganglion cyst History of total abdominal hysterectomy and bilateral salpingo-oophorectomy For uterine cancer. History of tubal ligation Family History Family History Mother Family history of heart disease in male family member before age 55 Diabetes mellitus Patient's mother is Family history of chronic obstructive pulmonary disease Father Family history of arthritis Patient's father is Family history of emphysema Family history of lung disease Sibling Family history of malignant neoplasm of ovary Family history of malignant neoplasm Patient's sister is Patient's sister is in good health Family history of malignant neoplasm of uterus Grandparent Diabetes mellitus Other Family history of cardiovascular disease Family history of osteoarthritis Hypertension Social History Social History Social History: . Lives alone but has family close by. Smoked up to 2 packs of cigarettes per day for 40 years and quit in 2000. No alcohol or drug abuse. She designates her daughter, Carmita Day, as her surrogate decision maker. Code status: Full code. Smoking packs per day: 2 Smoking cigarettes per day: 40.0 Years smoked: 53 Smoking pack-years: 106.00 Smoking status: Former smoker Tobacco type: cigarettes Smoking end date: 10/29/99
[2022-01-11] MEDS: ALPRAZolam (*CRX) 0.5 MG TABLET PO (20:33)
[2022-01-11] MEDS: ALBUTEROL SULFATE NEB 2.5 MG/0.5 ML INH (21:05)
[2022-01-12] VITALS (16 sets, daily range): BP systolic 131–140; BP diastolic 44–78; PULSE 73–90; RESP 16–19; TEMP 36.3–36.6; O2SAT 96–99
[2022-01-12] MEDS: ACETAMINOPHEN 500 MG TABLET 1000 MG PO (00:54)
[2022-01-12] MEDS: fentaNYL CITRATE INJ (*CRX) 100 MCG/2 ML VIAL 50 MCG IV PUSH (02:04)
[2022-01-12] MEDS: HYDROcodone/acetaminophen (*CRX) 10-325 MG TABLET 1 TAB PO ×3 (08:17→22:30)
[2022-01-12] MEDS: ALBUTEROL SULFATE NEB 2.5 MG/3 ML INH INHALATION ×4 (08:27→20:24)
[2022-01-12] MEDS: FLUTICASONE/SALMETEROL 45-21 MCG INHALER 1 PUFF 2 PUFF INHALATION ×2 (08:27→20:24)
[2022-01-12] MEDS: ALPRAZolam (*CRX) 0.5 MG TABLET PO ×2 (13:42→20:56)
--- NOTE | 2022-01-12 15:03 | PM.IMPN ---
Progress Note: A&P Assessment and Plan (1) Contusion of left hip: Qualifiers: Encounter type: initial encounter Qualified Code(s): S70.02XA - Contusion of left hip, initial encounter Code(s): S70.02XA - Contusion of left hip, initial encounter Status: Acute (2) CAD (coronary artery disease): Code(s): I25.10 - Atherosclerotic heart disease of [place] coronary artery without angina pectoris Status: Acute (3) Fall: Qualifiers: Encounter type: initial encounter Qualified Code(s): W19.XXXA - Unspecified fall, initial encounter Code(s): W19.XXXA - Unspecified fall, initial encounter Status: Acute (4) Weakness: Code(s): R53.1 - Weakness Status: Acute Additional Plan # left hip pain -MRI head shows no acute fracture, [id number] bilateral hip osteoarthritis with tear on left posterior acetabular labrum -low-grade muscle strains on the medial side pubic origin the abductor muscular of proximal left -orthopedics consulted no indication for surgery, continue physical therapy -pain control: P.r.n. [place] -Zofran for nausea -p.r.n. Flexeril # urinary tract infection -continue Rocephin 1 g daily 01/11- # other chronic conditions -obstructive sleep apnea: Continue BiPAP -COPD on home oxygen therapy 4 L: Albuterol p.r.n., fluticasone -atrial fibrillation: Continue anticoagulation Eliquis, rate control Coreg -anxiety/depression: Continue p.r.n. Xanax -resume home Lasix -essential hypertension: Continue Aldactone, losartan, Lasix Diet: Heart healthy DVT prophylaxis: On Eliquis Code status: Full code Disposition: Pending PT OT evaluation, likely longterm facility Time Spent With Patient Time with patient: 15 - 25 minutes Subjective Date/time seen: 01/12/22 15:03 Patient seen examined. She is doing well no new complaints today. No hip pain today. Patient's left hip MRI was negative for fracture. No surgery indicated. Will continue Rocephin for UTI while inpatient. Patient work with physical therapy to help with disposition plan. Patient lives alone at home. Will restart some blood pressure medications. Patient denies fever, chills no nausea vomiting, diarrhea chest pain, shortness of breath. Review of Systems Review of Systems: All systems reviewed & are unremarkable except as noted in HPI and below Exam Narrative: - GENERAL: Pleasant morbidly obese woman in no acute distress. - EYES: EOMI. Anicteric. - HENT: Moist mucous membranes. - LUNGS: Clear to auscultation bilaterally, no wheezing, rhonchi, or rales. - CARDIOVASCULAR: Regular rate and rhythm. No murmur. No JVD. - ABDOMEN: Soft, non-tender and non-distended. No palpable masses. - EXTREMITIES: No edema. Peripheral pulses 2+. Non-tender. - NEUROLOGIC: No focal neurological deficits. CN II-XII grossly intact. Peripheral strength 5/5 - PSYCHIATRIC: Awake, Alert and oriented x 3. Appropriate mood and affect. - SKIN: No rashes or lesions. Warm. - LYMPH: No cervical lymphadenopathy. Objective Data Vital Signs Vital Signs: Vital Signs - 24 hr 01/11/22 16:55 01/11/22 17:04 01/11/22 20:00 Temperature Pulse Rate 80 84 Respiratory Rate 18 18 Blood Pressure Pulse Oximetry 100 01/11/22 20:47 01/11/22 21:20 01/11/22 21:29 Temperature 36.3 C L Pulse Rate 80 88 86 Respiratory Rate 16 Blood Pressure 128/56 L Pulse Oximetry 100 01/11/22 22:30 01/12/22 01:41 01/12/22 05:15 Temperature 36.3 C L Pulse Rate 88 78 Respiratory Rate 18 16 18 Blood Pressure 131/44 L Pulse Oximetry 98 96 98 01/12/22 08:00 01/12/22 08:29 01/12/22 08:30 Temperature Pulse Rate 78 74 Respiratory Rate 18 16 Blood Pressure Pulse Oximetry 98 97 01/12/22 08:38 01/12/22 11:05 01/12/22 11:11 Temperature Pulse Rate 73 73 77 Respiratory Rate 16 16 16 Blood Pressure Pulse Oximetry Intake/Output Intake/Output: Intake & Output 01/09/22
[2022-01-12] MEDS: APIXABAN 5 MG TABLET PO (20:56)
[2022-01-12] MEDS: carvediloL 6.25 MG TABLET PO (20:57)
[2022-01-12] MEDS: CYCLOBENZAPRINE HCL 10 MG TABLET PO (20:59)
[2022-01-13] VITALS (17 sets, daily range): BP systolic 120–158; BP diastolic 54–67; PULSE 70–93; RESP 14–18; TEMP 36.1–36.7; O2SAT 95–100
[2022-01-13] MEDS: HYDROcodone/acetaminophen (*CRX) 10-325 MG TABLET 1 TAB PO ×3 (04:57→18:27)
[2022-01-13] MEDS: FLUTICASONE/SALMETEROL 45-21 MCG INHALER 1 PUFF 2 PUFF INHALATION ×2 (08:16→20:33)
[2022-01-13] MEDS: ALBUTEROL SULFATE NEB 2.5 MG/3 ML INH INHALATION ×4 (08:16→20:38)
[2022-01-13] MEDS: carvediloL 6.25 MG TABLET PO ×2 (08:24→20:23)
[2022-01-13] MEDS: APIXABAN 5 MG TABLET PO ×2 (08:24→20:23)
[2022-01-13] MEDS: FUROSEMIDE 40 MG TABLET PO (08:24)
[2022-01-13] MEDS: LOSARTAN POTASSIUM 100 MG TABLET PO (08:24)
[2022-01-13] MEDS: SPIRONOLACTONE 25 MG TABLET PO (08:24)
--- NOTE | 2022-01-13 10:03 | PM.IMPN ---
Progress Note: A&P Assessment and Plan (1) Contusion of left hip: Qualifiers: Encounter type: initial encounter Qualified Code(s): S70.02XA - Contusion of left hip, initial encounter Code(s): S70.02XA - Contusion of left hip, initial encounter Status: Acute (2) Fall: Qualifiers: Encounter type: initial encounter Qualified Code(s): W19.XXXA - Unspecified fall, initial encounter Code(s): W19.XXXA - Unspecified fall, initial encounter Status: Acute (3) CAD (coronary artery disease): Code(s): I25.10 - Atherosclerotic heart disease of [place] coronary artery without angina pectoris Status: Acute (4) Weakness: Code(s): R53.1 - Weakness Status: Acute (5) Wheezing: Code(s): R06.2 - Wheezing Status: Acute Additional Plan # wheezing -a wheezing left lung, continue home oxygen therapy and breathing treatments -will hold off on p.o. steroids as she is not not appear to be in significant exacerbation # left hip pain -MRI head shows no acute fracture, [id number] bilateral hip osteoarthritis with tear on left posterior acetabular labrum -low-grade muscle strains on the medial side pubic origin the abductor muscular of proximal left -orthopedics consulted no indication for surgery, continue physical therapy -pain control: P.r.n. [place] -Zofran for nausea -p.r.n. Flexeril # urinary tract infection -continue Rocephin 1 g daily 01/11- # other chronic conditions -obstructive sleep apnea: Continue BiPAP -COPD on home oxygen therapy 4 L: Albuterol p.r.n., fluticasone -atrial fibrillation: Continue anticoagulation Eliquis, rate control Coreg -anxiety/depression: Continue p.r.n. Xanax -resume home Lasix -essential hypertension: Continue Aldactone, losartan, Lasix Diet: Heart healthy DVT prophylaxis: On Eliquis Code status: Full code Disposition: pending senior living facility Time Spent With Patient Time with patient: 25 - 35 minutes Subjective Date/time seen: 01/13/22 10:03 Patient seen and examined. She complains of wheezing, she does have some wheezing left upper lung. She has chronic COPD and breathing treatments. Yesterday restart her home Lasix dose. We are still looking for placement to rehab. She denies fever chills nausea vomiting, abdominal pain, chest pain. She endorses wheezing. Review of Systems Review of Systems: All systems reviewed & are unremarkable except as noted in HPI and below Exam Narrative: - GENERAL: Pleasant morbidly obese woman in no acute distress. - EYES: EOMI. Anicteric. - HENT: Moist mucous membranes. - LUNGS: Wheezing left upper lung otherwise nonlabored respirations. Breathing comfortably on home oxygen level 4 L. no rhonchi or rales. - CARDIOVASCULAR: Regular rate and rhythm. No murmur. No JVD. - ABDOMEN: Soft, non-tender and non-distended. No palpable masses. - EXTREMITIES: No edema. Peripheral pulses 2+. Non-tender. - NEUROLOGIC: No focal neurological deficits. CN II-XII grossly intact. Peripheral strength 5/5 - PSYCHIATRIC: Awake, Alert and oriented x 3. Appropriate mood and affect. - SKIN: No rashes or lesions. Warm. - LYMPH: No cervical lymphadenopathy. Objective Data Vital Signs Vital Signs: Vital Signs - 24 hr 01/12/22 11:05 01/12/22 11:11 01/12/22 14:00 Temperature 36.6 C Pulse Rate 73 77 90 Respiratory Rate 16 16 18 Blood Pressure 140/78 Pulse Oximetry 99 01/12/22 15:44 01/12/22 15:51 01/12/22 20:25 Temperature Pulse Rate 80 73 Respiratory Rate 16 16 16 Blood Pressure Pulse Oximetry 01/12/22 20:31 01/12/22 20:46 01/12/22 20:57 Temperature Pulse Rate 75 84 Respiratory Rate 16 Blood Pressure Pulse Oximetry 98 01/12/22 22:39 01/13/22 02:28 01/13/22 05:23 Temperature 36.7 C Pulse Rate 75 82 72 Respiratory Rate 19 14 18 Blood Pressure 121/54 L Pulse Oximetry 96 96 100 01/13/22 08:15 01/13/22 08:20 01/13/22 08:24 Temper
[2022-01-13] MEDS: ALPRAZolam (*CRX) 0.5 MG TABLET PO ×2 (11:20→18:27)
--- NOTE | 2022-01-13 15:28 | PCNFU ---
Nutrition Follow-Up Complete: Inadequate oral intake related to vomiting and diarrhea as evidenced by 24 hour recall, poor PO intake, and decreased appetite Goal: Pt to meet 75% of estimated nutritional needs Pt is progressing towards goal. Continue with current goal. Pt current nutrition is heart healthy diet and dietary supplements Last recorded weight is 121.6 kg, stable. Recommend re-weighing prior to discharge. Bowel Motility: No new BM reported Labs Reviewed: No new labs reported in EMR Meds Noted: [place], Albuterol, Xanax, Eliquis, Coreg, Lasix, Cozaar, Aldactone Skin: No new skin break down. WNL Additional Notes: Current nutrition is a heart healthy diet and dietary supplements of Ensure Compact BID providing an additional 220kcal and 9g of protein to increase caloric intake. Reported intake of 50% x2, 10%, 75%, and 90%. Continue with plan of care to encourage intake of heart healthy diet and dietary supplements. Recommend increase dietary supplement from BID to TID if intake remains <50%. Agree with diet orders at this time. Will continue to follow. Will monitor labs, medication, wt, and reported intake every 5 days.
[2022-01-13] MEDS: ONDANSETRON INJ 4 MG/2 ML VIAL IV PUSH (17:24)
[2022-01-14] VITALS (16 sets, daily range): BP systolic 118–151; BP diastolic 49–71; PULSE 68–98; RESP 16–23; TEMP 36.2–36.8; O2SAT 62–97
[2022-01-14] MEDS: HYDROcodone/acetaminophen (*CRX) 10-325 MG TABLET 1 TAB PO ×4 (01:03→19:18)
[2022-01-14 06:00] LABS: Hematocrit 32.6 % (37.0-47.0); Hemoglobin 9.7 g/dL (12.0-15.0); Mean Corpuscular HGB Conc 29.8 g/dl (32-36); Mean Corpuscular Hemoglobin 27.4 pg (26-34); Mean Corpuscular Volume 92.1 fl (80-100); Mean Platelet Volume 9.1 fl (7.4-10.4); Platelet Count Result 363 k/mm3 (150-375); Red Blood Count 3.54 M/mm3 (4.2-5.4); Red Cell Distribution Width 17.3 % (11.5-14.5); White Blood Count 5.5 K/mm3 (4.5-10.0)
[2022-01-14 06:18] LABS: Anion Gap 1 mmol/L (8-16); Blood Urea Nitrogen 12 mg/dL (7-17); Calcium 8.3 mg/dL (8.4-10.2); Carbon Dioxide 36 mmol/L (22-30); Chloride 97 mmol/L (98-107); Estimated CRCL calculation 84 ml/min; Estimated Glomerular Filt Rate > 60; Glucose 100 mg/dL (65-110); Potassium 3.9 mmol/L (3.4-5.0); Sodium 134 mmol/L (137-145)
[2022-01-14] MEDS: FLUTICASONE/SALMETEROL 45-21 MCG INHALER 1 PUFF 2 PUFF INHALATION ×2 (08:08→20:11)
[2022-01-14] MEDS: ALBUTEROL SULFATE NEB 2.5 MG/3 ML INH INHALATION ×4 (08:09→20:11)
[2022-01-14] MEDS: LOSARTAN POTASSIUM 100 MG TABLET PO (09:19)
[2022-01-14] MEDS: SPIRONOLACTONE 25 MG TABLET PO (09:20)
[2022-01-14] MEDS: FUROSEMIDE 40 MG TABLET PO (09:20)
[2022-01-14] MEDS: APIXABAN 5 MG TABLET PO ×2 (09:20→19:20)
[2022-01-14] MEDS: carvediloL 6.25 MG TABLET PO ×2 (09:20→19:19)
--- NOTE | 2022-01-14 10:48 | PM.IMPN ---
Progress Note: A&P Assessment and Plan (1) Wheezing: Code(s): R06.2 - Wheezing Status: Acute (2) CAD (coronary artery disease): Code(s): I25.10 - Atherosclerotic heart disease of [place] coronary artery without angina pectoris Status: Acute (3) Weakness: Code(s): R53.1 - Weakness Status: Acute (4) Fall: Qualifiers: Encounter type: initial encounter Qualified Code(s): W19.XXXA - Unspecified fall, initial encounter Code(s): W19.XXXA - Unspecified fall, initial encounter Status: Acute (5) Contusion of left hip: Qualifiers: Encounter type: initial encounter Qualified Code(s): S70.02XA - Contusion of left hip, initial encounter Code(s): S70.02XA - Contusion of left hip, initial encounter Status: Acute (6) Acute hip pain: Qualifiers: Laterality: left Qualified Code(s): M25.552 - Pain in left hip Code(s): M25.559 - Pain in unspecified hip Status: Acute (7) UTI (urinary tract infection): Qualifiers: Hematuria presence: without hematuria Urinary tract infection type: site unspecified Qualified Code(s): N39.0 - Urinary tract infection, site not specified Code(s): N39.0 - Urinary tract infection, site not specified Status: Acute Additional Plan # wheezing, resolved -continue home oxygen therapy 4 L, breathing treatments as home use, home diuretic -wheezing has resolved, no need for p.o. steroids # left hip pain -MRI head shows no acute fracture, [id number] bilateral hip osteoarthritis with tear on left posterior acetabular labrum -low-grade muscle strains on the medial side pubic origin the abductor muscular of proximal left -orthopedics consulted no indication for surgery, continue physical therapy -pain control: P.r.n. [place] -Zofran for nausea -p.r.n. Flexeril # urinary tract infection -continue Rocephin 1 g daily 01/11- # other chronic conditions -obstructive sleep apnea: Continue BiPAP -COPD on home oxygen therapy 4 L: Albuterol p.r.n., fluticasone -atrial fibrillation: Continue anticoagulation Eliquis, rate control Coreg -anxiety/depression: Continue p.r.n. Xanax -resume home Lasix -essential hypertension: Continue Aldactone, losartan, Lasix Diet: Heart healthy DVT prophylaxis: On Eliquis Code status: Full code Disposition: pending longterm facility Time Spent With Patient Time with patient: 15 - 25 minutes Subjective Date/time seen: 01/14/22 10:48 Patient seen examined. She is doing very well today. Her wheezing from left lung has completely resolved. Yesterday she was resumed on her home Lasix and is diuresing well. Patient is medically stable for discharge to longterm facility for therapy. We are awaiting insurance authorization. Patient denies fever, chills, nausea, vomiting, diarrhea, chest pain, shortness of breath, lightheadedness, dizziness. Review of Systems Review of Systems: All systems reviewed & are unremarkable except as noted in HPI and below Exam Narrative: - GENERAL: Pleasant morbidly obese woman in no acute distress. - EYES: EOMI. Anicteric. - HENT: Moist mucous membranes. - LUNGS: Clear to auscultation bilaterally, no wheezing rhonchi or rales, wheezing left lung has resolved. Breathing comfortably on home oxygen level 4 L. - CARDIOVASCULAR: Regular rate and rhythm. No murmur. No JVD. - ABDOMEN: Soft, non-tender and non-distended. No palpable masses. - EXTREMITIES: No edema. Peripheral pulses 2+. Non-tender. - NEUROLOGIC: No focal neurological deficits. CN II-XII grossly intact. Peripheral strength 5/5 - PSYCHIATRIC: Awake, Alert and oriented x 3. Appropriate mood and affect. - SKIN: No rashes or lesions. Warm. - LYMPH: No cervical lymphadenopathy. Objective Data Vital Signs Vital Signs: Vital Signs - 24 hr 01/13/22 13:51 01/13/22 14:00 01/13/22 14:50 Temperature 36.1 C L Pulse Rate 72 70 70 Respiratory Rate 16 16
[2022-01-14] MEDS: ALPRAZolam (*CRX) 0.5 MG TABLET PO ×2 (12:32→21:27)
[2022-01-14] MEDS: ONDANSETRON INJ 4 MG/2 ML VIAL IV PUSH (17:35)
[2022-01-14] MEDS: SODIUM CHLORIDE 0.9% IV 250 ML 50 ML (17:40)
[2022-01-15] VITALS (17 sets, daily range): BP systolic 131–139; BP diastolic 61–75; PULSE 69–86; RESP 16–21; TEMP 36.3–36.6; O2SAT 94–99
[2022-01-15] MEDS: HYDROcodone/acetaminophen (*CRX) 10-325 MG TABLET 1 TAB PO ×4 (01:37→18:54)
[2022-01-15] MEDS: APIXABAN 5 MG TABLET PO ×2 (08:01→20:12)
[2022-01-15] MEDS: FUROSEMIDE 40 MG TABLET PO (08:01)
[2022-01-15] MEDS: SPIRONOLACTONE 25 MG TABLET PO (08:01)
[2022-01-15] MEDS: carvediloL 6.25 MG TABLET PO ×2 (08:01→20:12)
[2022-01-15] MEDS: LOSARTAN POTASSIUM 100 MG TABLET PO (08:01)
[2022-01-15] MEDS: ALPRAZolam (*CRX) 0.5 MG TABLET PO ×3 (08:02→20:12)
[2022-01-15] MEDS: FLUTICASONE/SALMETEROL 45-21 MCG INHALER 1 PUFF 2 PUFF INHALATION ×2 (08:35→20:15)
[2022-01-15] MEDS: ALBUTEROL SULFATE NEB 2.5 MG/3 ML INH INHALATION ×4 (08:36→20:15)
--- NOTE | 2022-01-15 12:11 | PC.NURSE ---
Dr Gonzalez notified of pt c/o abd pain and bloating after eating.
--- NOTE | 2022-01-15 12:19 | PM.IMPN ---
Progress Note: A&P Assessment and Plan (1) Contusion of left hip: Qualifiers: Encounter type: initial encounter Qualified Code(s): S70.02XA - Contusion of left hip, initial encounter Code(s): S70.02XA - Contusion of left hip, initial encounter Status: Acute (2) Fall: Qualifiers: Encounter type: initial encounter Qualified Code(s): W19.XXXA - Unspecified fall, initial encounter Code(s): W19.XXXA - Unspecified fall, initial encounter Status: Acute (3) CAD (coronary artery disease): Code(s): I25.10 - Atherosclerotic heart disease of [place] coronary artery without angina pectoris Status: Acute (4) Weakness: Code(s): R53.1 - Weakness Status: Acute (5) Upset stomach: Code(s): K30 - Functional dyspepsia Status: Acute (6) Acute hip pain: Qualifiers: Laterality: left Qualified Code(s): M25.552 - Pain in left hip Code(s): M25.559 - Pain in unspecified hip Status: Acute (7) UTI (urinary tract infection): Qualifiers: Hematuria presence: without hematuria Urinary tract infection type: site unspecified Qualified Code(s): N39.0 - Urinary tract infection, site not specified Code(s): N39.0 - Urinary tract infection, site not specified Status: Acute Additional Plan # left hip pain -MRI head shows no acute fracture, [id number] bilateral hip osteoarthritis with tear on left posterior acetabular labrum -low-grade muscle strains on the medial side pubic origin the abductor muscular of proximal left -orthopedics consulted no indication for surgery, continue physical therapy -pain control: P.r.n. [place] -Zofran for nausea -p.r.n. Flexeril # indigestion -will trial Maalox q.6 hours p.r.n. # urinary tract infection -completed course of Rocephin # other chronic conditions -obstructive sleep apnea: Continue BiPAP -COPD on home oxygen therapy 4 L: Albuterol p.r.n., fluticasone -atrial fibrillation: Continue anticoagulation Eliquis, rate control Coreg -anxiety/depression: Continue p.r.n. Xanax -resume home Lasix -essential hypertension: Continue Aldactone, losartan, Lasix Diet: Heart healthy DVT prophylaxis: On Eliquis Code status: Full code Disposition: pending detention facility Time Spent With Patient Time with patient: 15 - 25 minutes Subjective Date/time seen: 01/15/22 12:19 Patient seen examined. She is complaining of abdominal discomfort after meals. Will give Maalox and see how she does. Patient denies fever, chills, nausea vomiting, diarrhea. We are still awaiting placement. Review of Systems Review of Systems: All systems reviewed & are unremarkable except as noted in HPI and below Exam Narrative: - GENERAL: Pleasant morbidly obese woman in no acute distress. - EYES: EOMI. Anicteric. - HENT: Moist mucous membranes. - LUNGS: Clear to auscultation bilaterally, no wheezing rhonchi or rales, wheezing left lung has resolved. Breathing comfortably on home oxygen level 4 L. - CARDIOVASCULAR: Regular rate and rhythm. No murmur. No JVD. - ABDOMEN: Soft, non-tender and non-distended. No palpable masses. - EXTREMITIES: No edema. Peripheral pulses 2+. Non-tender. - NEUROLOGIC: No focal neurological deficits. CN II-XII grossly intact. Peripheral strength 5/5 - PSYCHIATRIC: Awake, Alert and oriented x 3. Appropriate mood and affect. - SKIN: No rashes or lesions. Warm. - LYMPH: No cervical lymphadenopathy. Objective Data Vital Signs Vital Signs: Vital Signs - 24 hr 01/14/22 12:57 01/14/22 13:05 01/14/22 15:29 Temperature 36.8 C Pulse Rate 94 92 98 Respiratory Rate 16 16 16 Blood Pressure 118/49 L Pulse Oximetry 62 L 01/14/22 16:07 01/14/22 16:15 01/14/22 19:19 Temperature Pulse Rate 87 88 68 Respiratory Rate 16 16 Blood Pressure Pulse Oximetry 01/14/22 19:22 01/14/22 20:11 01/14/22 20:18 Temperature 36.4 C Pulse Rate 83 82 86 Respira
[2022-01-15] MEDS: MAG HYDROX/AL HYDROX/SIMETH 30 ML UDC PO (12:28)
[2022-01-15] MEDS: CYCLOBENZAPRINE HCL 10 MG TABLET PO ×2 (12:31→20:15)
[2022-01-15] MEDS: ONDANSETRON INJ 4 MG/2 ML VIAL IV PUSH (12:36)
[2022-01-15] MEDS: FAMOTIDINE 20 MG TABLET PO (16:44)
[2022-01-16] VITALS (17 sets, daily range): BP systolic 102–146; BP diastolic 56–68; PULSE 62–84; RESP 16–20; TEMP 36.1–36.4; O2SAT 94–100
[2022-01-16] MEDS: HYDROcodone/acetaminophen (*CRX) 10-325 MG TABLET 1 TAB PO ×4 (01:03→18:21)
[2022-01-16] MEDS: FAMOTIDINE 20 MG TABLET PO (07:09)
[2022-01-16] MEDS: carvediloL 6.25 MG TABLET PO ×2 (08:14→20:32)
[2022-01-16] MEDS: APIXABAN 5 MG TABLET PO ×2 (08:14→20:32)
[2022-01-16] MEDS: LOSARTAN POTASSIUM 100 MG TABLET PO (08:14)
[2022-01-16] MEDS: SPIRONOLACTONE 25 MG TABLET PO (08:14)
[2022-01-16] MEDS: FUROSEMIDE 40 MG TABLET PO (08:14)
[2022-01-16] MEDS: ALPRAZolam (*CRX) 0.5 MG TABLET PO ×2 (08:17→17:46)
[2022-01-16] MEDS: ALBUTEROL SULFATE NEB 2.5 MG/3 ML INH INHALATION ×3 (08:24→15:16)
[2022-01-16] MEDS: FLUTICASONE/SALMETEROL 45-21 MCG INHALER 1 PUFF 2 PUFF INHALATION ×2 (08:24→20:19)
[2022-01-16] MEDS: MAG HYDROX/AL HYDROX/SIMETH 30 ML UDC PO (12:08)
--- NOTE | 2022-01-16 12:25 | PC.NURSE ---
Pt c/o abd pain after eating lunch, Dr Oconnell notified new orders received
--- NOTE | 2022-01-16 13:54 | PM.IMPN ---
Progress Note: A&P Additional Plan 76-year-old female with past medical history significant for COPD/emphysema, chronic hypoxic respiratory failure on supplemental oxygen at home, coronary artery disease, atrial fibrillation on chronic anticoagulation presented with generalized weakness, CT of the pelvis revealed left hip fracture as well. Patient was admitted for further evaluation, management and treatment. Underwent MRI hip which was negative for fracture. 1) left hip pain -MRI head shows no acute fracture, [id number] bilateral hip osteoarthritis with tear on left posterior acetabular labrum -low-grade muscle strains on the medial side pubic origin the abductor muscular of proximal left -orthopedics consulted no indication for surgery, continue physical therapy -pain control: P.r.n. [place] -Zofran for nausea -p.r.n. Flexeril 2) ?indigestion/Post prandial Abdominal pain c/w Maalox q.6 hours p.r.n. Switch to PPI Obtain Xray Abdomen 3) urinary tract infection -completed course of Rocephin 4)H/o Chronic Resp Failure: c/w O2 Support Stable c/w Albuterol, Fluticasone 5)obstructive sleep apnea: Continue BiPAP 6)Atrial fibrillation: Continue anticoagulation Eliquis, rate control Coreg 7)essential hypertension: Continue Aldactone, losartan, Lasix 8)DVT ppx: on ELiquis 9)Code:Full 10)Dispo:pending placement Time Spent With Patient Time with patient: 25 - 35 minutes Subjective Date/time seen: 01/16/22 13:54 abdominal pain after eating food Review of Systems Review of Systems: All systems reviewed & are unremarkable except as noted in HPI and below Constitutional: Constitutional: Reports no additional constitutional complaints Eyes: Eyes: Reports as per HPI ENT: Reports as per HPI Cardiovascular: Cardiovascular: Reports no additional cardiovascular complaints Respiratory: Respiratory: Reports no additional respiratory complaints Gastrointestinal: Gastrointestinal: Reports abdominal pain Musculoskeletal: Musculoskeletal: Reports arthralgias Neurologic: Reports system reviewed and no additional complaints, except as documented Exam Const: General: no acute distress HENMT: Mouth: Yes moist mucous membranes Eyes: Sclera: sclerae normal Pupils: Equal, round and reactive pupils present Neck: Neck: supple Resp: Auscultation: clear to auscultation bilaterally Cardio: Rate: regular rate Rhythm: regular rhythm GI: GI Palp: Yes Soft to palpation and Yes Tenderness to palpation present (GI) (non tender) Auscultation: normal bowel sounds Skin: General skin exam: normal color Psych: Mental Status: mental status grossly normal Objective Data Vital Signs Vital Signs: Vital Signs - 24 hr 01/15/22 14:00 01/15/22 15:43 01/15/22 20:07 Temperature 97.6 F 97.3 F L Pulse Rate 69 86 77 Respiratory Rate 18 16 16 Blood Pressure 134/61 131/65 Pulse Oximetry 98 98 01/15/22 20:12 01/15/22 20:16 01/15/22 20:18 Temperature Pulse Rate 86 79 Respiratory Rate 18 Blood Pressure Pulse Oximetry 98 01/15/22 20:25 01/15/22 23:37 01/16/22 02:48 Temperature Pulse Rate 84 Respiratory Rate 17 21 H 19 Blood Pressure Pulse Oximetry 94 95 01/16/22 06:26 01/16/22 08:00 01/16/22 08:14 Temperature 97.5 F L Pulse Rate 68 74 Respiratory Rate 18 Blood Pressure 146/68 H Pulse Oximetry 94 94 01/16/22 08:24 01/16/22 08:29 01/16/22 08:36 Temperature Pulse Rate 84 84 Respiratory Rate 16 18 Blood Pressure Pulse Oximetry 98 01/16/22 11:16 Temperature Pulse Rate 79 Respiratory Rate 20 Blood Pressure Pulse Oximetry Intake/Output Intake/Output: Intake & Output 01/13/22 01/14/22 01/15/22 01/16/22 23:59 23:59 23:59 23:59 Intake Total 1150 1170 2560 830 Output Total 3500 2175 950 500 Balance -2350 -1005 1610 330 Meds/Results Medications: Active Medications Generic Name Dose Route Start Last Admin Trade Name Freq
[2022-01-16] MEDS: PANTOPRAZOLE 40 MG TABLET PO (14:48)
[2022-01-16] MEDS: ALBUTEROL SULFATE (*SP) AEROSOL 1 PUFF 2 PUFF INHALATION (20:18)
[2022-01-17] VITALS (13 sets, daily range): BP systolic 102–133; BP diastolic 57–62; PULSE 67–85; RESP 16–21; TEMP 35.8–36.9; O2SAT 95–99
[2022-01-17] MEDS: HYDROcodone/acetaminophen (*CRX) 10-325 MG TABLET 1 TAB PO ×4 (00:21→19:13)
[2022-01-17 05:58] LABS: Basophils Absolute Auto 0.1 K/mm3 (0.0-0.1); Basophils Percent Auto 1.1 % (0.2-1.2); Eosinophils Absolute Auto 0.2 K/mm3 (0-0.3); Eosinophils Percent Auto 4.4 % (0-4.4); Hematocrit 33.7 % (37.0-47.0); Hemoglobin 10.1 g/dL (12.0-15.0); Immature Granulocyte Absolute 0.01 K/mm3 (0.00-0.031); Immature Granulocyte Percent A 0.2 % (0-0.5); Lymphocytes Absolute Auto 1.46 K/mm3 (0.9-3.2); Lymphocytes Percent Auto 26.8 % (18.3-44.2); Mean Corpuscular Hemoglobin 27.4 pg (26-34); Mean Corpuscular Volume 91.3 fl (80-100); Monocytes Absolute Auto 0.5 K/mm3 (0.1-0.6); Monocytes Percent Auto 9.4 % (2.6-8.5); Neutrophils Absolute Auto 3.2 K/mm3 (1.3-6.7); Neutrophils Percent Auto 58.1 % (45.5-73.1); Platelet Count Result 375 k/mm3 (150-375); Red Blood Count 3.69 M/mm3 (4.2-5.4); White Blood Count 5.5 K/mm3 (4.5-10.0)
[2022-01-17 06:11] LABS: Anion Gap 4 mmol/L (8-16); Blood Urea Nitrogen 17 mg/dL (7-17); Calcium 7.9 mg/dL (8.4-10.2); Carbon Dioxide 34 mmol/L (22-30); Chloride 94 mmol/L (98-107); Estimated CRCL calculation 73 ml/min; Estimated Glomerular Filt Rate > 60; Glucose 100 mg/dL (65-110); Potassium 4.5 mmol/L (3.4-5.0); Sodium 132 mmol/L (137-145)
[2022-01-17] MEDS: carvediloL 6.25 MG TABLET PO ×2 (08:05→20:12)
[2022-01-17] MEDS: APIXABAN 5 MG TABLET PO ×2 (08:07→20:11)
[2022-01-17] MEDS: PANTOPRAZOLE 40 MG TABLET PO (08:07)
[2022-01-17] MEDS: FUROSEMIDE 40 MG TABLET PO (08:08)
[2022-01-17] MEDS: LOSARTAN POTASSIUM 100 MG TABLET PO (08:08)
[2022-01-17] MEDS: SPIRONOLACTONE 25 MG TABLET PO (08:09)
[2022-01-17] MEDS: ALPRAZolam (*CRX) 0.5 MG TABLET PO (08:16)
[2022-01-17] MEDS: FLUTICASONE/SALMETEROL 45-21 MCG INHALER 1 PUFF 2 PUFF INHALATION ×2 (08:32→20:36)
[2022-01-17] MEDS: ALBUTEROL SULFATE NEB 2.5 MG/3 ML INH INHALATION ×3 (08:32→20:36)
[2022-01-17] MEDS: ONDANSETRON INJ 4 MG/2 ML VIAL IV PUSH ×2 (12:02→17:38)
--- NOTE | 2022-01-17 12:40 | PM.IMPN ---
Progress Note: A&P Assessment and Plan (1) Contusion of left hip: Qualifiers: Encounter type: initial encounter Qualified Code(s): S70.02XA - Contusion of left hip, initial encounter Code(s): S70.02XA - Contusion of left hip, initial encounter Status: Acute Assessment and Plan: MRI head shows no acute fracture, [id number] bilateral hip osteoarthritis with tear on left posterior acetabular labrum -low-grade muscle strains on the medial side pubic origin the abductor muscular of proximal left -orthopedics consulted no indication for surgery, continue physical therapy -pain control: P.r.n. [employer] -Zofran for nausea -p.r.n. Flexeril (2) Fall: Qualifiers: Encounter type: initial encounter Qualified Code(s): W19.XXXA - Unspecified fall, initial encounter Code(s): W19.XXXA - Unspecified fall, initial encounter Status: Acute Assessment and Plan: Fall precautions (3) CAD (coronary artery disease): Code(s): I25.10 - Atherosclerotic heart disease of [place] coronary artery without angina pectoris Status: Acute Assessment and Plan: Negative for chest pain (4) Weakness: Code(s): R53.1 - Weakness Status: Acute Assessment and Plan: Pt to continue with PT/OT (5) Upset stomach: Code(s): K30 - Functional dyspepsia Status: Acute Assessment and Plan: Continue PPI Pt to try bland foods (6) Acute hip pain: Qualifiers: Laterality: left Qualified Code(s): M25.552 - Pain in left hip Code(s): M25.559 - Pain in unspecified hip Status: Acute Assessment and Plan: Likely secondary to trauma secondary to fall sp MRI of the hip. MRI hip is negative for fracture 1. No fracture or other acute osseous abnormality. 2. Mild to moderate bilateral hip osteoarthritis with tear of the left posterior acetabular labrum. 3. Low-grade muscle strains along the medial side/pubic origin of the abductor musculature of the proximal left thigh. (7) UTI (urinary tract infection): Qualifiers: Hematuria presence: without hematuria Urinary tract infection type: site unspecified Qualified Code(s): N39.0 - Urinary tract infection, site not specified Code(s): N39.0 - Urinary tract infection, site not specified Status: Acute Assessment and Plan: Pt completed course of IV rocephin Additional Plan 4)H/o Chronic Resp Failure: Pt is on 4 liters of oxygen at home and inhalers c/w Albuterol, Fluticasone 5)obstructive sleep apnea: Continue BiPAP 6)Atrial fibrillation: Continue anticoagulation Eliquis, rate control Coreg 7)essential hypertension: Continue Aldactone, losartan, Lasix Subjective Date/time seen: 01/17/22 12:40 Interval history: 76-year-old female with past medical history significant for COPD/emphysema, chronic hypoxic respiratory failure on supplemental oxygen at home, coronary artery disease, atrial fibrillation on chronic anticoagulation. Patient presented due to generalized weakness for. Pt to continue with PT/ OT here and DC home with home health soon Review of Systems Review of Systems: All systems reviewed & are unremarkable except as noted in HPI and below Exam Narrative: - GENERAL: Pleasant morbidly obese woman - LUNGS: Clear to auscultation bilaterally, no wheezing rhonchi or rales, Breathing comfortably on home oxygen level 4 L. - CARDIOVASCULAR: Regular rate and rhythm. No murmur. No JVD. - ABDOMEN: Soft, non-tender and non-distended. No palpable masses. - EXTREMITIES: No edema. Peripheral pulses 2+. Non-tender. - NEUROLOGIC: No focal neurological deficits. CN II-XII grossly intact. Peripheral strength 5/5 - PSYCHIATRIC: Awake, Alert and oriented x 3. Appropriate mood and affect. - SKIN: No rashes or lesions. Warm. - LYMPH: No cervical lymphadenopathy. Objective Data Vital Signs Vital Signs: Vital Signs - 24 hr 01/16/22 1
[2022-01-18] VITALS (9 sets, daily range): BP systolic 113–149; BP diastolic 48–50; PULSE 68–92; RESP 16–20; TEMP 36.2–37; O2SAT 94–97
[2022-01-18] MEDS: HYDROcodone/acetaminophen (*CRX) 10-325 MG TABLET 1 TAB PO ×3 (01:23→14:56)
[2022-01-18] MEDS: ALBUTEROL SULFATE NEB 2.5 MG/3 ML INH INHALATION ×2 (08:18→12:51)
[2022-01-18] MEDS: FLUTICASONE/SALMETEROL 45-21 MCG INHALER 1 PUFF 2 PUFF INHALATION (08:20)
--- NOTE | 2022-01-18 08:51 | PM.DS ---
DS: Admitting Diagnosis Discharge Date 01/18/2022 Admitting Diagnosis WEAKNESS DS: Discharge Diagnosis Discharge Diagnosis (1) Contusion of left hip: Qualifiers: Encounter type: initial encounter Qualified Code(s): S70.02XA - Contusion of left hip, initial encounter Code(s): S70.02XA - Contusion of left hip, initial encounter Status: Acute Assessment and Plan: MRI head shows no acute fracture, [id number] bilateral hip osteoarthritis with tear on left posterior acetabular labrum -low-grade muscle strains on the medial side pubic origin the abductor muscular of proximal left -orthopedics consulted no indication for surgery, continue physical therapy -pain control: P.r.n. Hannah -Zofran for nausea -p.r.n. Flexeril (2) Fall: Qualifiers: Encounter type: initial encounter Qualified Code(s): W19.XXXA - Unspecified fall, initial encounter Code(s): W19.XXXA - Unspecified fall, initial encounter Status: Acute Assessment and Plan: Fall precautions (3) CAD (coronary artery disease): Code(s): I25.10 - Atherosclerotic heart disease of [place] coronary artery without angina pectoris Status: Acute Assessment and Plan: Negative for chest pain (4) Weakness: Code(s): R53.1 - Weakness Status: Acute Assessment and Plan: Pt to continue with PT/OT (5) Upset stomach: Code(s): K30 - Functional dyspepsia Status: Acute Assessment and Plan: Continue PPI Pt to try bland foods (6) Acute hip pain: Qualifiers: Laterality: left Qualified Code(s): M25.552 - Pain in left hip Code(s): M25.559 - Pain in unspecified hip Status: Acute Assessment and Plan: Likely secondary to trauma secondary to fall sp MRI of the hip. MRI hip is negative for fracture 1. No fracture or other acute osseous abnormality. 2. Mild to moderate bilateral hip osteoarthritis with tear of the left posterior acetabular labrum. 3. Low-grade muscle strains along the medial side/pubic origin of the abductor musculature of the proximal left thigh. (7) UTI (urinary tract infection): Qualifiers: Hematuria presence: without hematuria Urinary tract infection type: site unspecified Qualified Code(s): N39.0 - Urinary tract infection, site not specified Code(s): N39.0 - Urinary tract infection, site not specified Status: Acute Assessment and Plan: Pt completed course of IV rocephin DS: Summary Hospital Course Hospital Course: 76-year-old female with past medical history significant for COPD/emphysema, chronic hypoxic respiratory failure on supplemental oxygen at home, coronary artery disease, atrial fibrillation on chronic anticoagulation. Patient presented due to generalized weakness for. Pt to continue with PT/ OT here and DC home with home health soon. Time Spent with Patient Time attestation: Total time spent providing and/or coordinating discharge services:45 minutes on day of discharge Exam Narrative: - GENERAL: Pleasant morbidly obese woman - LUNGS: Clear to auscultation bilaterally, no wheezing rhonchi or rales, Breathing comfortably on home oxygen level 4 L. - CARDIOVASCULAR: Regular rate and rhythm. No murmur. No JVD. - ABDOMEN: Soft, non-tender and non-distended. No palpable masses. - EXTREMITIES: No edema. Peripheral pulses 2+. Non-tender. - NEUROLOGIC: No focal neurological deficits. CN II-XII grossly intact. Peripheral strength 5/5 - PSYCHIATRIC: Awake, Alert and oriented x 3. Appropriate mood and affect. Discharge Plan Discharge Attending physician on discharge: Kaylyn Yepez Discharging Clinician: Kaylyn Yepez Anticipated Discharge Date/Time: 01/18/22 08:50 Patient Disposition: Home Health Service Activity: follow weight bearing status Diet: heart healthy Discharge Instructions: Ortho Recommendations: Weight bearing as tolerated. Fo
[2022-01-18] MEDS: SPIRONOLACTONE 25 MG TABLET PO (08:54)
[2022-01-18] MEDS: PANTOPRAZOLE 40 MG TABLET PO (08:54)
[2022-01-18] MEDS: LOSARTAN POTASSIUM 100 MG TABLET PO (08:54)
[2022-01-18] MEDS: APIXABAN 5 MG TABLET PO (08:54)
[2022-01-18] MEDS: carvediloL 6.25 MG TABLET PO (08:54)
[2022-01-18] MEDS: FUROSEMIDE 40 MG TABLET PO (08:54)
[2022-01-18] MEDS: ALPRAZolam (*CRX) 0.5 MG TABLET PO (08:57)
--- NOTE | 2022-01-18 09:03 | PC.NURSE ---
Patient complained that we were very very late on her morning pain pill. This RN assessed her pain, which was rated 5/10 in her back. She was then given her ordered [place]. which was less than 20 minutes from the earliest possible due time for that medication. Patient was educated on non-pharmaceutical methods of pain control such as meditation, distraction, and music. Patient then accused the PCT of making fun of her glasses. The PCT had asked her why she was wearing sunglasses.
--- NOTE | 2022-01-18 13:49 | PCNFU ---
Nutrition Follow-Up Complete: Inadequate oral intake related to vomiting and diarrhea as evidenced by 24 hour recall, poor PO intake, and decreased appetite Goal: Pt to meet 75% of estimated nutritional needs Patient has met goal. No new goal. Pt current nutrition is Heart Healthy. Last recorded weight is 121.6 kg,stable Bowel Motility:+Bm reported 01/14 Labs Reviewed:Na 132, Hgb 10.1,Hct 33.7 Skin: WNL Additional Notes: Nutrition follow up. Patient seen today, no questions or concerns. She is currently eating 100% of heart healthy diet. Agree with diet orders. No further nutritional interventions needed. Goal: Will monitor labs, medication, wt, and reported intake every 7 days
== END 2022-01-18 15:27 | disposition home health service (06) | DRG 690 ==
LOC: ANHED 19:46 → ANH3MED 20:09
PROVIDERS: Emergency Medicine; Internal Medicine; Student in an Organized Health Care Education/Training Program; Admitting Provider Internal Medicine; Emergency Provider Emergency Medicine; PCP Family Medicine; Visit Provider Family Medicine
DX: N39.0 Urinary tract infection, site not specified (principal); I50.32 Chronic diastolic (congestive) heart failure; J96.11 Chronic respiratory failure with hypoxia; I48.20 Chronic atrial fibrillation, unspecified; R53.1 Weakness; W19.XXXA Unspecified fall, initial encounter; I48.91 Unspecified atrial fibrillation; Z99.81 Dependence on supplemental oxygen; G47.33 Obstructive sleep apnea (adult) (pediatric); I11.0 Hypertensive heart disease with heart failure; I25.10 Atherosclerotic heart disease of native coronary artery without angina pectoris; K21.9 Gastro-esophageal reflux disease without esophagitis; Z87.891 Personal history of nicotine dependence; Z80.8 Family history of malignant neoplasm of other organs or systems; Z83.3 Family history of diabetes mellitus; Z82.5 Family history of asthma and other chronic lower respiratory diseases; Z82.49 Family history of ischemic heart disease and other diseases of the circulatory system; M81.0 Age-related osteoporosis without current pathological fracture; J43.9 Emphysema, unspecified; G89.4 Chronic pain syndrome; Z85.42 Personal history of malignant neoplasm of other parts of uterus; E11.43 Type 2 diabetes mellitus with diabetic autonomic (poly)neuropathy; F32.9 Major depressive disorder, single episode, unspecified; S70.02XA Contusion of left hip, initial encounter; K30 Functional dyspepsia; Z79.01 Long term (current) use of anticoagulants; Z79.899 Other long term (current) drug therapy; Z79.891 Long term (current) use of opiate analgesic
CPT/HCPCS: 36415; 36600; 51701; 70450; 71045; 73502; 73562; 73700; 73721; 74019; 80048; 80053; 81001; 82805; 83605; 83735; 83880; 84484; 85025; 85027; 85610; 85730; 87077; 87086; 87088; 87186; 93005; 94640; 96365; 96375; 96376; 97110; 97161; 97165; 97530; 99285; A9270; G0378; J0696; J2405; J3010; J7050

== ENCOUNTER 2022-04-02 05:31 | Inpatient (IN) | payer MEDICARE, OTHER, SELFPAY ==
[2022-04-02] VITALS (51 sets, daily range): BP systolic 101–189; BP diastolic 34–96; PULSE 76–135; RESP 12–24; TEMP 36.3–36.7; O2SAT 93–99; BMI 42.2
--- NOTE | ~2022-04-02 | XR_ITS ---
EXAMINATION: XR chest 1V portable INDICATION: Chest pain after fall TECHNIQUE: Portable AP chest at 0706 hours COMPARISON: 01/10/2022 FINDINGS: Cardiomegaly is noted. There is no pleural effusion or pneumothorax. The lungs are free of acute opacities. IMPRESSION: 1. Cardiomegaly. Reviewed, dictated and finalized at location A. IMPRESSION: 1. Cardiomegaly.
--- NOTE | ~2022-04-02 | XR_ITS ---
EXAMINATION: XR chest 1V portable INDICATION: Wheezing TECHNIQUE: Portable AP chest at 1252 hours COMPARISON: 0706 hours FINDINGS: Cardiomegaly is noted. There is a mild diffuse interstitial pattern. There is no pleural ef fusion or pneumothorax. IMPRESSION: 1. Cardiac megaly with likely mild pulmonary edema. Reviewed, dictated and finalized at location A.
--- NOTE | ~2022-04-02 | CT_ITS ---
EXAMINATION: CT brain wo con INDICATION: Head injury COMPARISON: None TECHNIQUE: Standard unenhanced head CT. The dose-length product (DLP) was 681.00 mGy-cm. The mA was a djusted according to patient size. Iterative reconstruction technique was employed. FINDINGS: There is right parietal scalp soft tissue swelling. There is no acute intraparenchymal hemo rrhage. No evidence of mass lesion. No evidence of acute infarction. There is mild periventricular an d subcortical hypodensity probably related to small vessel ischemic disease. There is mild prominence of the sulci and ventricles related to cerebral atrophy. Intracranial calcified cerebral atheroscler osis is noted. There are no extra-axial collections. There is no mass effect or midline shift. The or bits are unremarkable. The visualized sinuses and mastoid air cells are well aerated. IMPRESSION: 1. Right parietal scalp soft tissue swelling without acute intracranial abnormality. 2. Age related findings. Reviewed, dictated and finalized at location A. IMPRESSION: 1. Right parietal scalp soft tissue swelling without acute intracranial abnorma lity. 2. Age related findings.
--- NOTE | 2022-04-02 05:58 | ECG_ITS ---
Measurements Intervals [place] Rate: 103 P: MI: 0 QRS: 99 QRSD: 126 T: -8 QT: 355 QTc: 465 Interpretive Statements ATRIAL FIBRILLATION WITH RAPID VENTRICULAR RESPONSE RIGHT BUNDLE BRANCH BLOCK [120+ ms QRS DURATION, UPRIGHT V1, 40+ ms S IN I/aVL/V4/V5/V6] COMPARED TO ECG 01/10/2022 17:42:23 NO SIGNIFICANT CHANGE Electronically Signed On 04-02-2022 19:18:32 CDT by Nicki Carlisle M.D.
--- NOTE | 2022-04-02 06:01 | PC.NURSE ---
Pt presents with significant hematoma to the rt. occipital area of skull. Ice pack applied Pt admits to same level fall with no LOC.
[2022-04-02 06:24] LABS: Alveolar/Arterial O2 Gradient 97.4 mmHg; Base Excess ABG -10.2 mEq/l (+/-2.0); Carboxyhemoglobin 0.7 % THb (0-2.0); Fractional Inspired Oxygen 36 %; HCO3 ABG 17.3 mEq/l (22.0-26.0); Methemoglobin ABG 0.2 %THb (0-1.5); Oxygen Content ABG 15.7 %vol (16.0-22.0); Oxygen Saturation ABG 96.8 % (95.0-100.0); PCO2 ABG 44.7 mmHg (35.0-45.0); PO2 ABG 107.4 mmHg (80.0-100.0); PO2 FiO2 Ratio Arterial Blood 2.98 %; Reduced Hemoglobin 3.1 %THb (0-5.0); Total Hemoglobin 11.5 g/dL (12.0-18.0)
[2022-04-02 06:25] LABS: Site Drawn RIGHT RADIAL; pH ABG 7.206 (7.350-7.450)
[2022-04-02 06:26] LABS: Device NASAL CANNULA; Modified Allen's Test Pass
[2022-04-02 06:37] LABS: Alanine Aminotransferase 16 U/L (6-35); Albumin Level 4.6 g/dL (3.5-5.1); Alkaline Phosphatase 230 U/L (38-126); Anion Gap 14 mmol/L (8-16); Aspartate Amino Transferase 32 U/L (14-36); Bilirubin,Total 0.7 mg/dL (0.2-1.3); Blood Urea Nitrogen 23 mg/dL (7-17); Calcium 8.7 mg/dL (8.4-10.2); Carbon Dioxide 18 mmol/L (22-30); Chloride 103 mmol/L (98-107); Estimated CRCL calculation 55 ml/min; Estimated Glomerular Filt Rate 54; Glucose 90 mg/dL (65-110); Potassium 4.9 mmol/L (3.4-5.0); Sodium 135 mmol/L (137-145)
[2022-04-02 06:47] LABS: INR 1.4; Prothrombin Time 16.7 Seconds (11.1-14.7)
[2022-04-02 06:48] LABS: Add Urine Microscopic? YES; Appearance Urine Clear (Clear); Bilirubin Urine 2+ (Negative); Blood Urine Trace-lysed (Negative); Color Urine Yellow (Yellow); Glucose Urine UA Negative (Negative); Ketones Urine 1+ mg/dL (Negative); Leukocyte Esterase Ur Trace LEU/UL (Negative); Nitrate Urine Negative (Negative); Protein Urine 1+ mg/dL (Negative); Urobilinogen Urine 0.2 mg/dL (<2.0); pH Urine 5.5 (5.0-9.0)
[2022-04-02 06:49] LABS: Bacteria Urine Trace /hpf; Mucus Urine Rare /lpf; RBC Urine 0-2 /hpf (0-2); WBC Urine 31-50 /hpf
[2022-04-02 06:50] LABS: Partial Thromboplastin Time 31.3 SECONDS (22.3-36.8)
[2022-04-02 06:51] LABS: Basophils Percent Auto 0.3 % (0.2-1.2); Eosinophils Percent Auto 0.2 % (0-4.4); Immature Granulocyte Absolute 0.05 K/mm3 (0.00-0.031); Immature Granulocyte Percent A 0.4 % (0-0.5); Lymphocytes Absolute Auto 0.77 K/mm3 (0.9-3.2); Lymphocytes Percent Auto 6.4 % (18.3-44.2); Mean Corpuscular HGB Conc 29.4 g/dl (32-36); Mean Corpuscular Hemoglobin 27.7 pg (26-34); Mean Corpuscular Volume 94.2 fl (80-100); Mean Platelet Volume 8.8 fl (7.4-10.4); Monocytes Absolute Auto 0.7 K/mm3 (0.1-0.6); Monocytes Percent Auto 6.1 % (2.6-8.5); Neutrophils Absolute Auto 10.5 K/mm3 (1.3-6.7); Neutrophils Percent Auto 86.6 % (45.5-73.1); Platelet Count Result 428 k/mm3 (150-375); Red Blood Count 3.61 M/mm3 (4.2-5.4); Red Cell Distribution Width 17.7 % (11.5-14.5); White Blood Count 12.1 K/mm3 (4.5-10.0)
[2022-04-02 07:04] LABS: Anisocytosis 1+ (NORMAL); Hypochromasia 1+ (NORMAL); Ovalocytes 1+ (NORMAL); Platelet Estimate Adequate (Adequate)
--- NOTE | 2022-04-02 07:33 | ED.FALL ---
HPI - Fall General Chief Complaint: Fall Stated Complaint: FALL, HEAD INJ Time Seen by Provider: 04/02/22 05:46 Source: patient, family and EMS Mode of arrival: EMS History of Present Illness HPI Narrative: This is a 76 year old female with history of atrial fibrillation, chronic respiratory failure, chronic pain who presents for evaluation after a fall. PAtient states she was going to the restroom when she fell backwards hitting her head on floor. She was unable to use her walker. She states she is not sure if she tripped or if she had LOC. She reports headache. She is complaining of pain all over which is normal. She denies worsening sob, chest pain, hip pain, nausea, vomiting or upper extremity pain. She takes eliquis. complaint: fall Related Data Home Medications Medication Instructions Recorded Confirmed hydrocodone 10 mg-acetaminophen 1 tablet PO Q6H PRN Pain 05/26/20 02/15/22 325 mg tablet Allergies Allergy/AdvReac Type Severity Reaction Status Date / Time No Known Allergies Allergy Unknown Verified 02/15/22 15:07 Review of Systems Review of Systems: All systems reviewed & are unremarkable except as noted in HPI and below Constitutional: Constitutional: Denies chills and Denies fever(s) ENT: Denies nasal congestion Cardiovascular: Cardiovascular: Denies chest pain Respiratory: Respiratory: Denies chest congestion, Reports cough and Reports dyspnea (chronc) Gastrointestinal: Gastrointestinal: Denies abdominal pain, Denies nausea and Denies vomiting Musculoskeletal: Musculoskeletal: Reports myalgias PMFSH Past Medical History Medical History Anxiety Arthritis Asthma Benign colon polyp Benign essential tremor Chronic anticoagulation Chronic atrial fibrillation Chronic diastolic congestive heart failure Chronic obstructive pulmonary disease Chronic pain syndrome Due to chronic back and neck pain. She is on long-term opiate therapy. Chronic respiratory failure with hypoxia, on home oxygen therapy Depression Emphysema lung Fibromyalgia Gastroesophageal reflux disease History of tobacco use Hypertension Inguinal hernia Obstructive sleep apnea Osteoporosis Peripheral neuropathy Seasonal allergies Severe pulmonary arterial systolic hypertension RVSP of 63 millimeters of mercury on echocardiogram in June 2019. Takotsubo cardiomyopathy In May 2019 with ejection fraction as low as 25 to 30%. EF improved to 65% on echo in June 2019. Type 2 diabetes mellitus with autonomic neuropathy Uterine cancer Surgical History Surgical History History of 2 sections History of cardiac cath History of cholecystectomy History of dilatation and curettage History of exploratory laparotomy With adhesiolysis. History of gastric bypass History of incisional hernia repair History of right knee joint replacement History of surgical removal of ganglion cyst History of total abdominal hysterectomy and bilateral salpingo-oophorectomy For uterine cancer. History of tubal ligation Family History Family History Mother Family history of heart disease in male family member before age 55 Diabetes mellitus Patient's mother is Family history of chronic obstructive pulmonary disease Father Family history of arthritis Patient's father is Family history of emphysema Family history of lung disease Sibling Family history of malignant neoplasm of ovary Family history of malignant neoplasm Patient's sister is Patient's sister is in good health Family history of malignant neoplasm of uterus Grandparent Diabetes mellitus Other Family history of cardiovascular disease Family history of osteoarthritis Hypertension Social History Social History (Updated
--- NOTE | 2022-04-02 08:48 | PC.NURSE ---
Attempted to ambulate pt. Pt became dizzy and felt like she was going to pass out after going from a supine position to sitting at the side of the bed. HR went from 80s-118. Pt sat on side of bed for approximately 5 minutes with no relief of dizziness.
[2022-04-02] MEDS: SODIUM CHLORIDE 0.9% IV 1,000 ML 250 ML IV CONT (09:00)
--- NOTE | 2022-04-02 09:30 | PC.NURSE ---
Pt reports headache and dizziness are still severe at this time. Dr. Barragan made aware.
[2022-04-02] MEDS: fentaNYL CITRATE INJ (*CRX) 100 MCG/2 ML VIAL 25 MCG IV PUSH (09:35)
--- NOTE | 2022-04-02 11:35 | PC.NURSE ---
Marsha RN asked this RN to come to bedside to reassess pt to determine if pt's behavior and mental status had changed. Pt was found to be trying to get out of bed and removing monitors by telegraph repeater technician. By the time this RN went to bedside to assess pt, pt was sitting upright in bed. Pt was not messing with monitors at that time and was able to be redirected to where she was and why she was here. Pt was repositioned in bed. A&O x4 at the time that this RN did reassessment. Pt still complaining of headache and dizziness. Dr. Barragan updated.
--- NOTE | 2022-04-02 11:40 | PC.NURSE ---
Sosa aircraft engine technician informed content writer that patient was pushing her away and saying she needed help. Project Hire went down to find patient pulling on all of her cords and IV. Project Hire attempted to redirect patient and was unable to do so. Patient then sat herself up and leaned sideways on the bed and complaining she is still very dizzy. Project Hire had ELSIE Hawk come assess patient and per ELSIE Hawk patient's behavior is normal for patient. Project Hire made Dr. Barragan aware event.
--- NOTE | 2022-04-02 13:32 | PM.IMHP ---
H&P: HPI History of Present Illness Date/Time: Patient was placed observation status for expected length of stay less than 23 hours for management, will plan to re-evaluate tomorrow for improvement. 04/02/22 13:32 Chief Complaint: Fall Narrative: Ms. Sawyer is a 76-year-old female who presented to the emergency room via EMS with complaints of fall. Patient is somewhat of a poor historian. Patient states that she was walking from her bedroom to the bathroom and she tripped over something and fell. Patient denies any loss of consciousness. Patient denies any lightheadedness, dizziness, syncopal, or near syncopal episodes. Patient denied any chest pain, shortness a breath, or palpitations. Patient states she has not been eating or drinking very well the last 2 days and does feel extremely ?dry?. Patient denies any nausea, vomiting, constipation, or diarrhea. Patient denies any dysuria, hematuria, frequency, or urgency. Patient states she does live by herself and does not have assistance in her house at all times. Does states she has fallen quite a bit who recently. Patient states she does wear oxygen at home at 3-4 L per nasal cannula at all times. Patient denies any fever, chills, cough, or abnormal shortness of breath. Patient states she has been taking all home medications without any difficulty. Upon evaluation in emergency room patient was noted to be lightheaded when sitting up. It was noted the patient had increased heart rate in when going from lying to sitting. Patient was given IV fluids and there has been improvement. Per previous medical records patient has a known history of COPD, atrial fibrillation, left ventricular diastolic dysfunction, severe pulmonary hypertension, hypertension, fibromyalgia, obstructive sleep apnea with use of BiPAP at night, and endometrial cancer status post hysterectomy. Patient did have a stress test in October of 2021. It was a Lexiscan Myoview stress test that showed large area of moderate infarct involving apical to the basal anterior wall and mid to basal anterior lateral wall of left ventricle. Specificity is decreased by 1 worsened attenuation. Normal left ejection fraction measuring greater than 70%. Review of Systems Review of Systems: A 12 point review of systems was completed patient all pertinent positive and negative per HPI the remainder are unremarkable. [facility] Past Medical History Medical History Anxiety Arthritis Asthma Benign colon polyp Benign essential tremor Chronic anticoagulation Chronic atrial fibrillation Chronic diastolic congestive heart failure Chronic obstructive pulmonary disease Chronic pain syndrome Due to chronic back and neck pain. She is on long-term opiate therapy. Chronic respiratory failure with hypoxia, on home oxygen therapy Depression Emphysema lung Fibromyalgia Gastroesophageal reflux disease History of tobacco use Hypertension Inguinal hernia Obstructive sleep apnea Osteoporosis Peripheral neuropathy Seasonal allergies Severe pulmonary arterial systolic hypertension RVSP of 63 millimeters of mercury on echocardiogram in June 2019. Takotsubo cardiomyopathy In May 2019 with ejection fraction as low as 25 to 30%. EF improved to 65% on echo in June 2019. Type 2 diabetes mellitus with autonomic neuropathy Uterine cancer Surgical History Surgical History History of 2 sections History of cardiac cath History of cholecystectomy History of dilatation and curettage History of exploratory laparotomy With adhesiolysis. History of gastric bypass History of incisional hernia repair History of right knee joint replacement History of surgical removal of ganglion cyst History of total abdominal hysterectomy and bilateral salpingo-oophorectomy For uterine cancer. History of tubal ligation Family History Family History (R
--- NOTE | 2022-04-02 15:00 | ADMGEN ---
This patient, Cheyenne Sawyer, was admitted to [facility] Surg Room 304-01. Patient/family oriented to hospital policies and general routines including ID bracelet, bed and alarms, visiting hours, pain management, procedures, bathroom and other care routines, personal items, smoking policy, room service/diet, and visiting hours. Information on how to activate the Rapid Response Team has been discussed. Patient/Family are encouraged to report perceived risks to care and to ask questions if they do not understand what they are told or what they should do.
[2022-04-02] MEDS: MORPHINE SULFATE (*CRX) 2 MG/ML INJ IV PUSH (15:12)
[2022-04-02] MEDS: SODIUM CHLORIDE 0.9% IV 1,000 ML 100 ML IV CONT (15:31)
[2022-04-02] MEDS: ALBUTEROL SULFATE NEB 2.5 MG/3 ML INH INHALATION ×2 (15:45→20:37)
[2022-04-02] MEDS: LORazepam INJ (*CRX) 2 MG/ML VIAL 1 MG IV PUSH (17:04)
[2022-04-02] MEDS: TOLNAFTATE 1% POWDER 45 GM BTL 1 APPLIC TOPICAL (20:36)
[2022-04-02] MEDS: APIXABAN 5 MG TABLET PO (23:57)
[2022-04-02] MEDS: ATORVASTATIN 20 MG TABLET PO (23:57)
[2022-04-02] MEDS: carvediloL 6.25 MG TABLET PO (23:57)
[2022-04-03] VITALS (24 sets, daily range): BP systolic 112–168; BP diastolic 59–85; PULSE 80–108; RESP 18–20; TEMP 36.3–37.3; O2SAT 93–99; BMI 42.2
[2022-04-03] MEDS: ALPRAZolam (*CRX) 0.5 MG TABLET PO (00:12)
[2022-04-03] MEDS: traMADol HCL (*CRX) 50 MG TABLET PO ×2 (00:12→16:25)
[2022-04-03] MEDS: ALBUTEROL SULFATE NEB 2.5 MG/3 ML INH INHALATION ×4 (01:47→21:15)
[2022-04-03] MEDS: SODIUM CHLORIDE 0.9% IV 1,000 ML 100 ML IV CONT ×2 (04:59→15:40)
[2022-04-03 06:41] LABS: Basophils Absolute Auto 0.1 K/mm3 (0.0-0.1); Basophils Percent Auto 0.8 % (0.2-1.2); Eosinophils Absolute Auto 0.2 K/mm3 (0-0.3); Eosinophils Percent Auto 2.7 % (0-4.4); Hematocrit 31.6 % (37.0-47.0); Hemoglobin 9.2 g/dL (12.0-15.0); Immature Granulocyte Absolute 0.02 K/mm3 (0.00-0.031); Immature Granulocyte Percent A 0.3 % (0-0.5); Lymphocytes Absolute Auto 0.94 K/mm3 (0.9-3.2); Lymphocytes Percent Auto 12.2 % (18.3-44.2); Mean Corpuscular HGB Conc 29.1 g/dl (32-36); Mean Corpuscular Hemoglobin 27.7 pg (26-34); Mean Corpuscular Volume 95.2 fl (80-100); Monocytes Absolute Auto 0.6 K/mm3 (0.1-0.6); Neutrophils Absolute Auto 5.9 K/mm3 (1.3-6.7); Platelet Count Result 392 k/mm3 (150-375); Red Blood Count 3.32 M/mm3 (4.2-5.4); Red Cell Distribution Width 17.9 % (11.5-14.5); White Blood Count 7.7 K/mm3 (4.5-10.0)
[2022-04-03 06:56] LABS: Anion Gap 8 mmol/L (8-16); Blood Urea Nitrogen 17 mg/dL (7-17); Carbon Dioxide 20 mmol/L (22-30); Chloride 107 mmol/L (98-107); Estimated CRCL calculation 89 ml/min; Estimated Glomerular Filt Rate > 60; Glucose 67 mg/dL (65-110); Magnesium 2.3 mg/dL (1.6-2.3); Potassium 4.3 mmol/L (3.4-5.0); Sodium 135 mmol/L (137-145)
[2022-04-03 08:04] LABS: Anisocytosis 1+ (NORMAL); Ovalocytes 1+ (NORMAL)
[2022-04-03] MEDS: APIXABAN 5 MG TABLET PO ×2 (08:57→20:20)
[2022-04-03] MEDS: FUROSEMIDE 40 MG TABLET PO (08:58)
[2022-04-03] MEDS: PANTOPRAZOLE 40 MG TABLET PO (08:58)
[2022-04-03] MEDS: SPIRONOLACTONE 25 MG TABLET PO (08:58)
[2022-04-03] MEDS: carvediloL 6.25 MG TABLET PO ×2 (08:58→20:21)
[2022-04-03] MEDS: LOSARTAN POTASSIUM 100 MG TABLET PO (08:58)
[2022-04-03] MEDS: hydrALAZINE 10 MG TABLET BY MOUTH ×2 (08:59→16:25)
[2022-04-03] MEDS: TOLNAFTATE 1% POWDER 45 GM BTL 1 APPLIC TOPICAL ×2 (08:59→20:22)
[2022-04-03] MEDS: POTASSIUM CHLORIDE 20 MEQ TABLET.ER PO (08:59)
--- NOTE | 2022-04-03 11:49 | PM.IMPN ---
Progress Note: A&P Assessment and Plan (1) Acute UTI: Code(s): N39.0 - Urinary tract infection, site not specified Status: Acute Assessment and Plan: Patient's urinalysis does show small urinary tract infection. Unsure if this is a contaminant. At this point time patient did receive Rocephin in the emergency room will continue with this antibiotic. Continue antibiotics (2) COPD (chronic obstructive pulmonary disease): Code(s): J44.9 - Chronic obstructive pulmonary disease, unspecified Status: Acute Assessment and Plan: Patient is on home oxygen and she shows no hypoxia. Patient does have an expiratory wheeze will place on albuterol treatments every 6 hours for 24 hours and re-evaluate if they are needed. Patient's chest x-ray did not show any pneumonia and patient does not appear to be in an acute exacerbation of COPD. (3) Dehydration: Code(s): E86.0 - Dehydration Status: Acute Assessment and Plan: IV fluids, improved (4) Fall: Qualifiers: Encounter type: initial encounter Qualified Code(s): W19.XXXA - Unspecified fall, initial encounter Code(s): W19.XXXA - Unspecified fall, initial encounter Status: Acute Assessment and Plan: Patient states that she has fallen quite a bit recently. Patient denies any loss of consciousness, lightheadedness, dizziness, chest pain, or syncope. Patient's head CT does show right parietal scalp soft tissue swelling without acute intracranial abnormality. Will have PT/OT to evaluate and treat patient for discharge planning to evaluate if patient is safe to return home by herself. Subjective Date/time seen: 04/03/22 11:49 No new complaints Exam Narrative: Constitutional: Patient is a 76-year-old female who is in no acute distress. Patient is alert and oriented x3 HEENT: Mucous membranes appear dry. No scleral icterus. No lymphadenopathy. Neck: No carotid bruits noted no JVD noted Lungs: Lung sounds have expiratory wheezes noted bilaterally. No accessory muscle use. No rhonchi or rales. Cardiovascular: Apical pulse is irregularly irregular, S1 with variable S2, no S3 or S4. No murmurs, rubs, or gallops noted. Abdomen: Soft, round, and nontender. No palpable masses. Extremities: Trace edema noted to bilateral lower extremities Nontender. Skin: No rashes or lesions. Warm and dry. Skin is intact. Neurological: No focal neurological deficits. Cranial nerves II-XII grossly intact. Psychiatric: Cooperative, appropriate mood, and affect Objective Data Vital Signs Vital Signs: Vital Signs - 24 hr 04/02/22 12:01 04/02/22 12:30 04/02/22 15:40 Temperature Pulse Rate 83 77 Respiratory Rate 17 17 Blood Pressure 133/60 Pulse Oximetry 98 Oxygen Delivery Nasal Cannula Oxygen Flow Rate 4 04/02/22 15:40 04/02/22 15:50 04/02/22 20:42 Temperature Pulse Rate 104 H 99 Respiratory Rate 24 H 18 Blood Pressure Pulse Oximetry 97 Oxygen Delivery Nasal Cannula Oxygen Flow Rate 3 04/02/22 20:54 04/02/22 20:55 04/02/22 21:05 Temperature Pulse Rate 84 89 Respiratory Rate 22 H 20 Blood Pressure Pulse Oximetry 97 Oxygen Delivery Nasal Cannula Oxygen Flow Rate 3 04/02/22 21:28 04/02/22 21:29 04/02/22 21:25 Temperature 97.3 F L 97.3 F L Pulse Rate 88 88 93 Respiratory Rate 18 18 18 Blood Pressure 146/96 H 146/96 H 143/88 H Pulse Oximetry 98 98 97 Oxygen Delivery Oxygen Flow Rate 04/02/22 23:57 04/02/22 20:00 04/03/22 00:00 Temperature Pulse Rate 78 76 88 Respiratory Rate Blood Pressure Pulse Oximetry Oxygen Delivery Oxygen Flow Rate 04/02/22 20:00 04/03/22 01:50 04/03/22 02:01 Temperature Pulse Rate 88 91 88 Respiratory Rate 18 20 20 Blood Pressure Pulse Oximetry 98 Oxygen Delivery Nasal Cannula Oxygen Flow Rate 4 04/03/22 04:00 04/03/22 06:00 04/03/22 05:00 Temperature 97.6 F 97.6 F
[2022-04-03] MEDS: ATORVASTATIN 20 MG TABLET PO (20:21)
[2022-04-03] MEDS: ACETAMINOPHEN 325 MG TABLET 650 MG PO (20:24)
[2022-04-03 21:05] LABS: Glucose Point of Care 103 mg/dl (65-105)
[2022-04-04] VITALS (24 sets, daily range): BP systolic 108–167; BP diastolic 49–82; PULSE 71–785; RESP 18–20; TEMP 36–36.5; O2SAT 96–99
[2022-04-04] MEDS: HYDROcodone/acetaminophen (*CRX) 10-325 MG TABLET 1 TAB PO ×3 (01:17→21:15)
[2022-04-04] MEDS: SODIUM CHLORIDE 0.9% IV 1,000 ML 100 ML IV CONT (01:42)
[2022-04-04] MEDS: ALBUTEROL SULFATE NEB 2.5 MG/3 ML INH INHALATION ×4 (02:30→20:12)
[2022-04-04] MEDS: traMADol HCL (*CRX) 50 MG TABLET PO ×2 (05:47→12:56)
[2022-04-04] MEDS: LOSARTAN POTASSIUM 100 MG TABLET PO (09:05)
[2022-04-04] MEDS: FUROSEMIDE 40 MG TABLET PO (09:05)
[2022-04-04] MEDS: PANTOPRAZOLE 40 MG TABLET PO (09:05)
[2022-04-04] MEDS: APIXABAN 5 MG TABLET PO ×2 (09:05→21:03)
[2022-04-04] MEDS: POTASSIUM CHLORIDE 20 MEQ TABLET.ER PO (09:06)
[2022-04-04] MEDS: carvediloL 6.25 MG TABLET PO ×2 (09:06→21:05)
[2022-04-04] MEDS: hydrALAZINE 10 MG TABLET BY MOUTH (09:06)
[2022-04-04] MEDS: SPIRONOLACTONE 25 MG TABLET PO (09:06)
[2022-04-04] MEDS: TOLNAFTATE 1% POWDER 45 GM BTL 1 APPLIC TOPICAL ×2 (09:07→21:05)
--- NOTE | 2022-04-04 11:55 | PM.IMPN ---
Progress Note: A&P Assessment and Plan (1) Acute UTI: Code(s): N39.0 - Urinary tract infection, site not specified Status: Acute Assessment and Plan: Patient's urinalysis does show small urinary tract infection. Unsure if this is a contaminant. IV Rocephin. (2) COPD (chronic obstructive pulmonary disease): Code(s): J44.9 - Chronic obstructive pulmonary disease, unspecified Status: Acute Assessment and Plan: Patient is on home oxygen and she shows no hypoxia. She appears to be at her baseline oxygen and does not appear to be in exacerbation. (3) Dehydration: Code(s): E86.0 - Dehydration Status: Acute Assessment and Plan: IV fluids, improved (4) Fall: Qualifiers: Encounter type: initial encounter Qualified Code(s): W19.XXXA - Unspecified fall, initial encounter Code(s): W19.XXXA - Unspecified fall, initial encounter Status: Acute Assessment and Plan: Patient states that she has fallen quite a bit recently. Patient denies any loss of consciousness, lightheadedness, dizziness, chest pain, or syncope. Day she is having a little bit dizziness. Workup unrevealing. Ongoing discussion after patient worked with physical therapy today about possible placement based upon what she can and can't do. Subjective Date/time seen: 04/04/22 11:55 Patient complaining of more back pain today. We also complaining of some dizziness. She has not gotten up with physical therapy at Exam Narrative: Constitutional: Patient is a 76-year-old female who is in no acute distress. Patient is alert and oriented x3 HEENT: Mucous membranes appear dry. No scleral icterus. No lymphadenopathy. Neck: No carotid bruits noted no JVD noted Lungs: Lung sounds have expiratory wheezes noted bilaterally. No accessory muscle use. No rhonchi or rales. Cardiovascular: Apical pulse is irregularly irregular, S1 with variable S2, no S3 or S4. No murmurs, rubs, or gallops noted. Abdomen: Soft, round, and nontender. No palpable masses. Extremities: Trace edema noted to bilateral lower extremities Nontender. Skin: No rashes or lesions. Warm and dry. Skin is intact. Neurological: No focal neurological deficits. Cranial nerves II-XII grossly intact. Psychiatric: Cooperative, appropriate mood, and affect Objective Data Vital Signs Vital Signs: Vital Signs - 24 hr 04/03/22 13:47 04/03/22 14:25 04/03/22 14:35 Temperature 98.7 F Pulse Rate 83 80 82 Respiratory Rate 20 20 20 Blood Pressure 133/71 Pulse Oximetry 95 Oxygen Delivery Oxygen Flow Rate 04/03/22 12:00 04/03/22 16:00 04/03/22 20:21 Temperature Pulse Rate 86 94 92 Respiratory Rate Blood Pressure Pulse Oximetry Oxygen Delivery Oxygen Flow Rate 04/03/22 21:15 04/03/22 21:18 04/03/22 20:00 Temperature Pulse Rate 83 83 88 Respiratory Rate 20 Blood Pressure Pulse Oximetry 98 Oxygen Delivery Nasal Cannula Oxygen Flow Rate 3 04/03/22 22:00 04/03/22 22:00 04/03/22 22:04 Temperature 99.2 F 99.2 F Pulse Rate 82 82 80 Respiratory Rate 18 18 18 Blood Pressure 123/59 L 123/59 L 128/66 Pulse Oximetry 99 99 95 Oxygen Delivery Oxygen Flow Rate 04/03/22 20:00 04/04/22 00:00 04/04/22 02:30 Temperature Pulse Rate 80 76 74 Respiratory Rate 18 18 Blood Pressure Pulse Oximetry 95 Oxygen Delivery Nasal Cannula Oxygen Flow Rate 4 04/04/22 02:38 04/04/22 05:51 04/04/22 05:52 Temperature 97.7 F 97.7 F Pulse Rate 78 785 H 75 Respiratory Rate 20 18 18 Blood Pressure 123/61 123/61 Pulse Oximetry 96 96 Oxygen Delivery Oxygen Flow Rate 04/04/22 05:52 04/04/22 04:00 04/04/22 08:20 Temperature Pulse Rate 80 72 83 Respiratory Rate 18 Blood Pressure 128/66 Pulse Oximetry 96 98 Oxygen Delivery Nasal Cannula Oxygen Flow Rate 3 04/04/22 08:00 04/04/22 08:10 04/04/22 09:06 Temperature Pulse Rate 72
[2022-04-04] MEDS: ALPRAZolam (*CRX) 0.5 MG TABLET PO (13:41)
[2022-04-04] MEDS: ATORVASTATIN 20 MG TABLET PO (21:04)
[2022-04-05] VITALS (12 sets, daily range): BP systolic 142–152; BP diastolic 89–92; PULSE 76–119; RESP 18–20; TEMP 36.1–36.2; O2SAT 95–100
--- NOTE | 2022-04-05 | ECHO_ITS ---
Patient Info Name: Cheyenne Sawyer Age: 76 years : 1945 Gender: Female Ht: 65 in Wt: 253 lbs BSA: 2.35 m2 HR: 96 bpm BP: 149 / 89 mmHg Heart Rhythm: Sinus Rhythm Technical Quality: Fair Exam Date: 04/05/2022 1:27 PM Exam Location: [facility] Pulmonary Exam Room: [facility] Patient Status: Inpatient Admit Date: 04/04/2022 Staff Ordering Physician: Yamilka Flor DO R Developer: Keiko Flower RDCS Attending Provider: Lara Flor MD Referring Physician: Chacho CANNON; Exam Type: CA echo doppler color flow Study Info Indications - chf Complete two-dimensional, color flow and Doppler transthoracic echocardiogram is performed. Summary 1. Complete two-dimensional, color flow and Doppler transthoracic echocardiogram is performed. 2. Normal left ventricular size and thickness with good contractility of all segments. Ejection fraction 72%. Diastolic dysfunction is present. 3. Left atrial chamber dimension is moderately enlarged. 4. There is mild tricuspid valve regurgitation. 5. Moderate pulmonary hypertension, estimated pulmonary arterial systolic pressure is 52 mmHg. 6. Normal sinus rhythm. Left Ventricle Left ventricular chamber dimension is normal. Left ventricular systolic function is normal, estimated at Empty. There is no increased left ventricular wall thickness. Left ventricular septal wall motion is normal. The left ventricular diastolic function is normal. Right Ventricle Right ventricular chamber dimension is normal. Right ventricular systolic function is normal. Left Atria Left atrial chamber dimension is moderately enlarged. Right Atria Right atrial chamber dimension is normal. Aortic Valve The aortic valve is trileaflet. There is no aortic valve sclerosis. There is no aortic valve stenosis. There is no aortic valve regurgitation. Pulmonic Valve The pulmonic valve is normal. There is no pulmonic valve stenosis. There is no pulmonic regurgitation. Mitral Valve The mitral valve has normal leaflets. There is no mitral valve stenosis. There is trace mitral valve regurgitation. Tricuspid Valve The tricuspid valve leaflets are normal. There is no significant tricuspid valve stenosis. There is mild tricuspid valve regurgitation. Moderate pulmonary hypertension, estimated pulmonary arterial systolic pressure is 52 mmHg. Pericardium/Pleural The pericardium appears normal. There is no pericardial effusion. Inferior Vena Cava Normal inferior vena cava with >50% collapse upon inspiration consistent with Empty right atrial pressure, 10 mmHg. Aorta The aortic root size at the sinus of Valsalva is normal. The prox ascending aorta size is normal. Left Ventricular Outflow Tract Name Value Normal LVOT 2D LVOT Diameter 2.0 cm LVOT Doppler LVOT Peak Gradient 5 mmHg LVOT Mean Gradient 2 mmHg LVOT VTI 17 cm LVOT VTI/AV VTI Ratio 0.7 LVOT Stroke Volume 53 ml LVOT CO
[2022-04-05] MEDS: ALBUTEROL SULFATE NEB 2.5 MG/3 ML INH INHALATION ×2 (01:54→08:24)
[2022-04-05 06:20] LABS: Potassium 3.3 mmol/L (3.4-5.0)
[2022-04-05] MEDS: carvediloL 6.25 MG TABLET PO (10:31)
[2022-04-05] MEDS: POTASSIUM CHLORIDE 20 MEQ TABLET.ER PO (10:31)
[2022-04-05] MEDS: hydrALAZINE 10 MG TABLET BY MOUTH (10:31)
[2022-04-05] MEDS: APIXABAN 5 MG TABLET PO (10:32)
[2022-04-05] MEDS: LOSARTAN POTASSIUM 100 MG TABLET PO (10:32)
[2022-04-05] MEDS: PANTOPRAZOLE 40 MG TABLET PO (10:32)
[2022-04-05] MEDS: FUROSEMIDE 40 MG TABLET PO (10:33)
[2022-04-05] MEDS: SPIRONOLACTONE 25 MG TABLET PO (10:33)
[2022-04-05] MEDS: TOLNAFTATE 1% POWDER 45 GM BTL 1 APPLIC TOPICAL (10:35)
[2022-04-05] MEDS: HYDROcodone/acetaminophen (*CRX) 10-325 MG TABLET 1 TAB PO (10:36)
--- NOTE | 2022-04-05 11:35 | PCOTNOTE ---
Attempted to see patient for OT. Patient stated she just worked with PT, and declined to participate in any ADLs or activity. Patient not seen for OT this date.
--- NOTE | 2022-04-05 15:08 | PM.DS ---
DS: Admitting Diagnosis Discharge Date April 05, 2022 Admitting Diagnosis Lightheadedness with fall DS: Discharge Diagnosis Discharge Diagnosis (1) Acute UTI: Code(s): N39.0 - Urinary tract infection, site not specified Status: Acute Assessment and Plan: Urine culture showed Klebsiella pneumonia, sent home on cefdinir (2) COPD (chronic obstructive pulmonary disease): Code(s): J44.9 - Chronic obstructive pulmonary disease, unspecified Status: Acute Assessment and Plan: Patient is on home oxygen and she shows no hypoxia. She appears to be at her baseline oxygen and does not appear to be in exacerbation. (3) Dehydration: Code(s): E86.0 - Dehydration Status: Acute Assessment and Plan: IV fluids, improved (4) Fall: Qualifiers: Encounter type: initial encounter Qualified Code(s): W19.XXXA - Unspecified fall, initial encounter Code(s): W19.XXXA - Unspecified fall, initial encounter Status: Acute Assessment and Plan: Patient states that she has fallen quite a bit recently. Patient denies any loss of consciousness, lightheadedness, dizziness, chest pain, or syncope. Day she is having a little bit dizziness. Workup unrevealing. Follow-up outpatient with family practice in physical therapy DS: Summary Hospital Course Reason for hospitalization: Lightheadedness and fall Hospital Course: 76-year-old female with past medical history consistent with chronic atrial fibrillation, COPD with chronic respiratory failure on home oxygen therapy, severe pulmonary hypertension, diabetes is presenting to the ER after a fall. In the ER, she was noted to be tachycardic and lightheaded when she went from lying to sitting. She was thought to be dehydrated is started on IV fluids. Urinalysis showed UTI and she was started on Rocephin. Culture did show Klebsiella and she was transitioned to cefdinir upon discharge. COPD remained stable on home oxygen without any symptoms. Lightheadedness improved with IV fluid administration. She was evaluated by Physical therapy who recommended outpatient PT and possible placement in rehab facility but patient refused and insisted on going home. Therefore, she was discharged in good condition on cefdinir with close outpatient follow-up with her family physician and possible outpatient PT if she changes her mind. Status at Discharge Overall status at discharge: patient is progressing back to baseline Time Spent with Patient Time attestation: Total time spent providing and/or coordinating discharge services: Time spent: Greater than 30 minutes Exam Narrative: Constitutional: Patient is a 76-year-old female who is in no acute distress. Patient is alert and oriented x3 HEENT: Mucous membranes appear dry. No scleral icterus. No lymphadenopathy. Neck: No carotid bruits noted no JVD noted Lungs: Lung sounds have expiratory wheezes noted bilaterally. No accessory muscle use. No rhonchi or rales. Cardiovascular: Apical pulse is irregularly irregular, S1 with variable S2, no S3 or S4. No murmurs, rubs, or gallops noted. Abdomen: Soft, round, and nontender. No palpable masses. Extremities: Trace edema noted to bilateral lower extremities Nontender. Skin: No rashes or lesions. Warm and dry. Skin is intact. Neurological: No focal neurological deficits. Cranial nerves II-XII grossly intact. Psychiatric: Cooperative, appropriate mood, and affect DS: Data Data Completed and Pending Labs on day of discharge: Labs from last 24 hours 04/05/22 05:40 Potassium 3.3 L Discharge Plan Discharge Attending physician on discharge: Yamilka Flor Discharging Clinician: Yamilka Flor Patient Disposition: Home, Self-Care Activity: as tolerated Diet: as tolerated Discharge Instructions: Per Care Coordination, pt. will discharge home with [facility] . Please have sheet finisher fax
== END 2022-04-05 15:30 | disposition home or self-care (01) | DRG 690 ==
LOC: ANHED 12:19 → ANH3MEDSUR 13:29
PROVIDERS: Nurse Practitioner Adult Health; Admitting Provider Hospitalist; Emergency Provider General Practice; PCP Family Medicine; Visit Provider Student in an Organized Health Care Education/Training Program
DX: N39.0 Urinary tract infection, site not specified (principal); I48.20 Chronic atrial fibrillation, unspecified; J96.11 Chronic respiratory failure with hypoxia; I50.32 Chronic diastolic (congestive) heart failure; E86.0 Dehydration; W19.XXXA Unspecified fall, initial encounter; Z79.01 Long term (current) use of anticoagulants; J43.9 Emphysema, unspecified; G89.4 Chronic pain syndrome; M79.7 Fibromyalgia; G47.33 Obstructive sleep apnea (adult) (pediatric); F32.9 Major depressive disorder, single episode, unspecified; Z87.891 Personal history of nicotine dependence; E11.43 Type 2 diabetes mellitus with diabetic autonomic (poly)neuropathy; M81.0 Age-related osteoporosis without current pathological fracture; Z85.42 Personal history of malignant neoplasm of other parts of uterus; K21.9 Gastro-esophageal reflux disease without esophagitis; Z99.81 Dependence on supplemental oxygen; I11.0 Hypertensive heart disease with heart failure; Z79.899 Other long term (current) drug therapy; Z98.84 Bariatric surgery status; Z83.3 Family history of diabetes mellitus; Z82.49 Family history of ischemic heart disease and other diseases of the circulatory system
CPT/HCPCS: 36415; 36600; 51701; 70450; 71045; 80048; 80053; 81001; 82375; 82805; 82948; 83050; 83735; 84132; 85025; 85610; 85730; 87077; 87086; 87186; 93005; 93306; 94640; 96361; 96365; 96366; 96367; 96375; 96376; 97116; 97161; 97165; 97530; 99285; A9270; G0378; J0131; J0696; J2060; J2270; J3010; J7030

== ENCOUNTER 2022-06-21 01:30 | Day surgery (SDC) | payer MEDICARE, OTHER, SELFPAY ==
[2022-06-07 13:50] VITALS: BMI 42.5
--- NOTE | 2022-06-16 10:16 | PC.NURSE ---
SPOKE WITH [facility] IN DR. CELAYA, THEY ARE AWARE THAT DR. GIRON WOULD NOT CLEAR PATIENT WITHOUT OFFICE VISIT THEY HAVE NOT SEEN PATIENT SINCE 09/2020. DR. CELAYA IS OKAY WITH CLEARING PT TO HOLD ELIQUIS FOR 48 HOURS PRIOR TO PROCEDURE.
--- NOTE | 2022-06-20 17:30 | PM.HPGS ---
History of Present Illness History of Present Illness Consent: Risks, benefits, and alternatives have been discussed and questions answered. Patient agrees to proceed with procedure. Chief complaint: GERD Narrative: Cheyenne Sawyer is a 76 year old female with a great deal of nausea, And she has dizziness when she eats and she has lost some weight. She is on pantoprazole 40 mg per day. She denies dysphagia. She feels her reflux symptoms are getting worse. She has had a prior gastric bypass. she suffers from COPD, has obstructive sleep apnea, MYKEL, and she had been anticoagulated because of atrial fibrillation but she stops her anticoagulant a few weeks ago. Review of Systems Review of Systems: All systems reviewed & are unremarkable except as noted in HPI and below PMFSH Past Medical History Medical History Anxiety Arthritis Asthma Benign colon polyp Benign essential tremor Chronic anticoagulation Chronic atrial fibrillation Chronic diastolic congestive heart failure Chronic obstructive pulmonary disease Chronic pain syndrome Due to chronic back and neck pain. She is on long-term opiate therapy. Chronic respiratory failure with hypoxia, on home oxygen therapy Depression Emphysema lung Fibromyalgia Gastroesophageal reflux disease History of tobacco use Hypertension Inguinal hernia Obstructive sleep apnea Osteoporosis Peripheral neuropathy Seasonal allergies Severe pulmonary arterial systolic hypertension RVSP of 63 millimeters of mercury on echocardiogram in June 2019. Takotsubo cardiomyopathy In May 2019 with ejection fraction as low as 25 to 30%. EF improved to 65% on echo in June 2019. Type 2 diabetes mellitus with autonomic neuropathy Uterine cancer Surgical History Surgical History History of 2 sections History of cardiac cath History of cholecystectomy History of dilatation and curettage History of exploratory laparotomy With adhesiolysis. History of gastric bypass History of incisional hernia repair History of right knee joint replacement History of surgical removal of ganglion cyst History of total abdominal hysterectomy and bilateral salpingo-oophorectomy For uterine cancer. History of tubal ligation Family History Family History Mother Family history of heart disease in male family member before age 55 Diabetes mellitus Patient's mother is Family history of chronic obstructive pulmonary disease Father Family history of arthritis Patient's father is Family history of emphysema Family history of lung disease Sibling Family history of malignant neoplasm of ovary Family history of malignant neoplasm Patient's sister is Patient's sister is in good health Family history of malignant neoplasm of uterus Grandparent Diabetes mellitus Other Family history of cardiovascular disease Family history of osteoarthritis Hypertension Social History Social History Social History: . Lives alone but has family close by. Smoked up to 2 packs of cigarettes per day for 40 years and quit in 2000. No alcohol or drug abuse. She designates her daughter, Carmita Day, as her surrogate decision maker. Code status: Full code. Smoking packs per day: 3 Smoking cigarettes per day: 60.0 Years smoked: 30 Smoking pack-years: 90.00 Smoking status: Former smoker Alcohol intake: never Substance use: current Substance use type: opiates Living arrangements: alone Gender identity (if verbalized by the patient): Female Sexual Orientation (if Verbalized by the Patient): Straight or Heterosexual Spiritual care concerns: No Meds Home Medications and Allergies Home Medications
[2022-06-21 09:24] VITALS: BP 150/75; PULSE 80; RESP 25; TEMP 36.2; O2SAT 99
[2022-06-21] MEDS: LACTATED RINGERS 1,000 ML 150 ML IV CONT (09:35)
--- NOTE | 2022-06-21 10:06 | WPDANESEPPF ---
Anes - Initial Pre Proc Eval Procedure: Operation Date: 06/21/22 10:30 Proposed Procedures p Esophagogastroduodenoscopy - Sharad Rios MD Date/Time: 06/21/22 10:06 Surgeon: Sharad Rios MD Pre Op Diagnosis: GERD Patient Data Age: 76 Gender: F Height: 1.65 m Weight: 115.9 kg Last Vital Signs Temp 97.1 F L 06/21/22 09:24 Pulse 80 06/21/22 09:24 Resp 25 H 06/21/22 09:24 BP 150/75 H 06/21/22 09:24 Pulse Ox 99 06/21/22 09:24 O2 Del Method Room Air 06/21/22 09:24 Allergies Allergy/AdvReac Type Severity Reaction Status Date / Time No Known Allergies Allergy Unknown Verified 06/21/22 09:21 Home Medications Medication Instructions Recorded Confirmed Type hydrocodone 10 mg-acetaminophen 1 tablet PO Q6H PRN Pain 05/26/20 06/21/22 History 325 mg tablet cyclobenzaprine 10 mg tablet 10 mg PO Q8-12H PRN Muscle Spasm 01/21/21 06/21/22 Rx #5 tabs albuterol sulfate 2.5 mg/3 mL 2.5 mg (3 mL) inhalation QID PRN 02/28/21 06/21/22 Rx (0.083 %) solution for nebulization shortness of breath or wheezing #360 mL albuterol sulfate 90 mcg/actuation 1 - 2 puff inhalation Q4H PRN 06/01/21 06/21/22 Rx aerosol inhaler (ProAir HFA) Shortness Of Breath #8.5 grams apixaban 5 mg tablet (Eliquis) 5 mg PO Q12H #60 tabs 02/15/22 06/21/22 Rx atorvastatin 20 mg tablet 20 mg PO QHS #90 tabs 02/15/22 06/21/22 Rx carvedilol 6.25 mg tablet (Coreg) 6.25 mg PO Q12HR #60 tabs 02/15/22 06/21/22 Rx hydralazine 10 mg tablet See Rx Instructions .Route 02/15/22 06/21/22 Rx .COMPLEX #60 tabs pantoprazole 40 mg tablet,delayed 40 mg PO QAM #90 tabs 02/15/22 06/21/22 Rx release spironolactone 25 mg tablet 25 mg PO DAILY #90 tabs 02/15/22 06/21/22 Rx losartan 100 mg tablet 100 mg PO DAILY 04/02/22 06/21/22 History potassium chloride 20 mEq See Rx Instructions .Route 05/24/22 06/21/22 Rx tablet,extended release .COMPLEX #90 tabs furosemide 40 mg tablet 40 mg PO QAM #90 tabs 05/30/22 06/21/22 Rx blood sugar diagnostic (Blood #50 ea 06/02/22 06/21/22 Rx Glucose Test strips) blood-glucose meter (Advocate #1 ea 06/02/22 06/21/22 Rx Blood Glucose Monitor) budesonide-formoterol HFA 80 2 puff inhalation BID #10.2 grams 06/02/22 06/21/22 Rx mcg-4.5 mcg/actuation aerosol inhaler (Symbicort) alprazolam 0.5 mg tablet 0.5 mg PO BID PRN anxiety #60 tabs 06/08/22 06/21/22 Rx Patient hx anesthesia problems: none Family hx anesthesia problems: none Results Review: All pre-operative results and documents have been reviewed as part of the pre-operative evaluation. [facility] Past Medical History Medical History Anxiety Arthritis Asthma Benign colon polyp Benign essential tremor Chronic anticoagulation Chronic atrial fibrillation Chronic diastolic congestive heart failure Chronic obstructive pulmonary disease Chronic pain syndrome Due to chronic back and neck pain. She is on long-term opiate therapy. Chronic respiratory failure with hypoxia, on home oxygen therapy Depression Emphysema lung Fibromyalgia Gastroesophageal reflux disease History of tobacco use Hypertension Inguinal hernia Obstructive sleep apnea Osteoporosis Peripheral neuropathy Seasonal allergies Severe pulmonary arterial systolic hypertension RVSP of 63 millimeters of mercury on echocardiogram in June 2019. Takotsubo cardiomyopathy In May 2019 with ejection fraction as low as 25 to 30%. EF improved to 65% on echo in June 2019. Type 2 diabetes mellitus with autonomic neuropathy Uterine cancer Surgical History Surgical History History of 2 sections History of cardiac cath History of cholecystectomy History of dilatation and curettage History of exploratory laparotomy With adhesiolysis. History of gastric bypass History of incisional hernia repair History of right knee joint replacement History
[2022-06-21 10:24] VITALS: BP 111/38; PULSE 68; RESP 23; O2SAT 99
[2022-06-21 10:34] VITALS: BP 112/45; PULSE 63; RESP 25; O2SAT 100
[2022-06-21 10:44] VITALS: BP 118/60; PULSE 66; RESP 22; O2SAT 99
--- NOTE | 2022-06-21 10:56 | SUR.PHASEII ---
per Dr. Rios, pt can restart Eliquis today.
== END 2022-06-21 10:57 | disposition home or self-care (01) ==
PROVIDERS: PCP Family Medicine; Visit Provider Internal Medicine Gastroenterology
PROC: 0DJ08ZZ Inspection of Upper Intestinal Tract, Via Natural or Artificial Opening Endoscopic (ICD-10-PCS; CPT 43235; principal; 2022-06-21 10:30)
DX: R11.0 Nausea (principal); K31.89 Other diseases of stomach and duodenum; Z79.01 Long term (current) use of anticoagulants; Z79.51 Long term (current) use of inhaled steroids; I11.0 Hypertensive heart disease with heart failure; R42 Dizziness and giddiness; F41.9 Anxiety disorder, unspecified; M19.90 Unspecified osteoarthritis, unspecified site; J45.909 Unspecified asthma, uncomplicated; R25.1 Tremor, unspecified; J44.9 Chronic obstructive pulmonary disease, unspecified; G47.33 Obstructive sleep apnea (adult) (pediatric); E11.40 Type 2 diabetes mellitus with diabetic neuropathy, unspecified; M81.0 Age-related osteoporosis without current pathological fracture; I27.20 Pulmonary hypertension, unspecified; Z90.49 Acquired absence of other specified parts of digestive tract; Z87.891 Personal history of nicotine dependence
CPT/HCPCS: 43239; 87081; J2001; J2704; J7120

== ENCOUNTER 2022-07-05 11:39 | Outpatient (CLI) | payer MEDICARE, OTHER, SELFPAY ==
--- NOTE | ~2022-07-05 | XR_ITS ---
EXAMINATION:XR cervical spine 4-5V DATE: 07/05/2022 12:15 INDICATION: Cervical radiculopathy TECHNIQUE: AP, lateral, lateral swimmers and odontoid views of the cervical spine are provided. COMPARISON: CT, 12/15/2021 FINDINGS: There are 2 mm of stable anterolisthesis of C3 on C4 and 2 mm of stable retrolisthesis of C 4 on C5. The odontoid is intact. No fracture is identified. There is moderate loss of intervertebral disc space height from C4-5 through C6-7. Small degenerative osteophytes project from the anterior en dplates of multiple vertebral bodies. There is moderate to severe facet and uncovertebral joint osteo arthritis throughout the cervical spine. Prevertebral soft tissues are normal. IMPRESSION: 1. Severe cervical spondylosis without acute findings or significant interval change. Reviewed, dictated and finalized at location A. IMPRESSION: 1. Severe cervical spondylosis without acute findings or significant interval sebastian giang
--- NOTE | ~2022-07-05 | XR_ITS ---
EXAMINATION: XR lumbar spine 2-3V DATE: 07/05/2022 12:15 INDICATION: Lumbar radiculopathy TECHNIQUE: Anteroposterior and lateral views of the lumbar spine, and cone-down lateral view of the l umbosacral junction were obtained. COMPARISON: 02/17/2021 FINDINGS: Bone alignment is normal. There is no fracture. There is unchanged severe loss of intervert ebral disc space height at L2-3, L4-5, and L5-S1. The vertebral body heights are normal. Small degene rative osteophytes project from the anterior endplates of multiple vertebral bodies. There is severe facet osteoarthritis of the lower lumbar spine. Calcified atherosclerosis is noted. There are surgica l clips in the pelvis. There is moderate osteoarthritis of the hips. IMPRESSION: 1. Severe lumbar spondylosis without acute findings or significant interval change. Reviewed, dictated and finalized at location A. IMPRESSION: 1. Severe lumbar spondylosis without acute findings or significant interval pablo nge.
== END 2022-07-05 11:40 | disposition home or self-care (01) ==
PROVIDERS: PCP Family Medicine; Visit Provider Pain Medicine Interventional Pain Medicine
DX: M47.26 Other spondylosis with radiculopathy, lumbar region (principal); M47.22 Other spondylosis with radiculopathy, cervical region; Z79.891 Long term (current) use of opiate analgesic
CPT/HCPCS: 72050; 72100

== ENCOUNTER 2023-12-25 09:48 | Outpatient (CLI) | payer MEDICARE, OTHER, SELFPAY ==
--- NOTE | ~2023-12-25 | XR_ITS ---
EXAMINATION: XR lumbar spine 2-3V DATE: 12/25/2023 10:21 INDICATION: Lumbar radiculopathy TECHNIQUE: Anteroposterior and lateral views of the lumbar spine, and cone-down lateral view of the l umbosacral junction were obtained. COMPARISON: 07/05/2022 FINDINGS: There are 4 mm of retrolisthesis of L5 on S1. There is severe loss of intervertebral disc s pace height at L2-3, L4-5, and L5-S1. There is moderate loss of intervertebral disc space height at L 3-4. The vertebral body heights are maintained. There is no fracture. There is severe facet joint ost eoarthritis of the lower lumbar spine. Surgical clips are noted in the pelvis. There is moderate oste oarthritis of the hips. Surgical clips are noted in the left upper quadrant. IMPRESSION: 1. Severe lumbar spondylosis without acute findings or significant interval change. Reviewed, dictated and finalized at location L. UM GUIDE IMPRESSION: 1. Severe lumbar spondylosis without acute findings or significant interval pablo nge.
--- NOTE | ~2023-12-25 | XR_ITS ---
EXAMINATION: XR thoracic spine 3V DATE: 12/25/2023 10:21 INDICATION: Thoracic back pain TECHNIQUE: AP, lateral and lateral swimmer's views of the thoracic spine were obtained. COMPARISON: None. FINDINGS: Bone alignment is normal. There is no fracture. The vertebral body heights are maintained. There is moderate loss of intervertebral disc space height throughout the thoracic spine. Small degen erative osteophytes project from the anterior endplates of multiple vertebral bodies. Surgical change s are noted in the left upper quadrant. IMPRESSION: 1. Moderate thoracic spondylosis without acute findings. Reviewed, dictated and finalized at location L. HROOM MONITOR
--- NOTE | ~2023-12-25 | XR_ITS ---
EXAMINATION:XR_CERV2-3V_CR DATE: 12/25/2023 10:21 INDICATION: Cervical radiculopathy TECHNIQUE: AP, lateral, and odontoid views of the cervical spine are provided. COMPARISON: 07/05/2022 FINDINGS: There are 2 mm of stable anterolisthesis of C3 on C4 and 2 mm of stable retrolisthesis of C 4 on C5. The odontoid process is intact. No fracture is identified. There is moderate loss of interve rtebral disc space height at C4-5, C5-6, and C6-7. The vertebral body heights are maintained. There i s multilevel moderate to severe facet and uncovertebral joint osteoarthritis. Prevertebral soft tissu es are normal. Small degenerative osteophytes project from the anterior endplates of multiple vertebr al bodies. IMPRESSION: 1. Severe cervical spondylosis without acute findings or significant interval change. Reviewed, dictated and finalized at location L. OBIOLOGICAL ANALYST
== END 2023-12-25 09:49 | disposition home or self-care (01) ==
PROVIDERS: PCP Family Medicine
DX: M51.36 Other intervertebral disc degeneration, lumbar region (principal); M51.26 Other intervertebral disc displacement, lumbar region; M51.27 Other intervertebral disc displacement, lumbosacral region; M47.24 Other spondylosis with radiculopathy, thoracic region; M47.26 Other spondylosis with radiculopathy, lumbar region; M47.22 Other spondylosis with radiculopathy, cervical region
CPT/HCPCS: 72040; 72072; 72100

== ENCOUNTER 2024-09-12 11:12 | Outpatient (CLI) | payer MEDICARE, OTHER, SELFPAY ==
[2024-09-12 11:53] LABS: Anion Gap 8 mmol/L (4-12); Blood Urea Nitrogen 24 mg/dL (7-17); Calcium 8.5 mg/dL (8.4-10.2); Carbon Dioxide 23 mmol/L (22-30); Chloride 107 mmol/L (98-107); Estimated Glomerular Filt Rate > 60; Glucose 94 mg/dL (65-110); Potassium 3.6 mmol/L (3.4-5.0); Sodium 138 mmol/L (137-145)
[2024-09-12 12:51] LABS: Free T4 Free Thyroxine 1.31 ng/mL (0.78-2.19)
[2024-09-17 15:28] LABS: Vitamin D 1,25 (OH)2 Total 10 pg/mL (18-72); Vitamin D2 1,25 (OH)2 <8 pg/mL; Vitamin D3 1,25 (OH)2 10 pg/mL
== END 2024-09-12 11:13 | disposition home or self-care (01) ==
PROVIDERS: PCP Family Medicine; Visit Provider Family Medicine
DX: R79.89 Other specified abnormal findings of blood chemistry (principal); N18.9 Chronic kidney disease, unspecified; E55.9 Vitamin D deficiency, unspecified; E03.9 Hypothyroidism, unspecified
CPT/HCPCS: 36415; 80048; 82652; 84439; 84443

== ENCOUNTER 2024-09-19 08:13 | Inpatient (IN) | payer MEDICARE, OTHER, SELFPAY ==
[2024-09-19] VITALS (25 sets, daily range): BP systolic 144–185; BP diastolic 72–105; PULSE 69–111; RESP 12–26; TEMP 35.7–36.6; O2SAT 96–100; BMI 40.1
--- NOTE | ~2024-09-19 | US_ITS ---
EXAMINATION: US abdomen limited DATE: 09/27/2024 16:22 INDICATION: CIRRHOSIS TECHNIQUE: Multiple grayscale and Doppler ultrasound images of limited portions of the abdomen were o btained. COMPARISON: 03/23/2021; CT abdomen pelvis 09/24/2024. FINDINGS: The visualized portions of the pancreas are normal. The liver is normal with normal echogen icity and echotexture. Mild surface nodularity. Normal hepatopetal flow in the main portal vein. Surg ically absent gallbladder. The common bile duct measures 7 mm. IMPRESSION: Sonographic findings suggestive of cirrhosis. Reviewed, dictated and finalized at location K. ATION NURSE
--- NOTE | ~2024-09-19 | XR_ITS ---
Portable chest x-ray Comparison: 04/02/2022 Clinical History: Hypoxia Findings: Probable mild bibasilar pulmonary edema and central venous congestive change. Cardiomedia stinal silhouette is stable. Bones and soft tissues are unremarkable. Impression: Probable mild bibasilar pulmonary edema and central congestive change. Reviewed, dictated and finalized at [facility]. ER OPERATOR Impression: Probable mild bibasilar pulmonary edema and central congestive change.
--- NOTE | ~2024-09-19 | XR_ITS ---
MODIFIED ESOPHAGRAM HISTORY: Dysphagia. TECHNIQUE: Modified barium esophagram was performed on 09/20/2024. I administered fluoroscopy and per formed the exam with speech pathologist. Patient was seated for lateral fluoroscopic imaging for ing estion of thin liquids, pudding, solids and quantified amounts, followed by thin liquids in uncontrol led amounts. This was recorded on tape. A single fluoroscopic spot image was also recorded. The DAP f or this procedure was 1.544 Gycm2. The amount of fluoroscopy time used during this procedure was 2.5 minutes. FINDINGS: Oral stage: Adequate function with reduced lingual movement. Pharyngeal stage: Adequate function with reduced laryngeal elevation and vallecular residue. Cervical/esophageal stage: Adequate function. IMPRESSION: Patient tolerated regular consistency oral feedings in the upright position. Please katharina elate with speech pathologist findings and specific feeding recommendations. Reviewed, dictated and finalized at location A. CER APPRENTICE IMPRESSION: Patient tolerated regular consistency oral feedings in the upright position. Please correlate with speech pathologist findings and specific feedi ng recommendations.
--- NOTE | ~2024-09-19 | CT_ITS ---
EXAMINATION: CTA chest PE protocol DATE: 09/20/2024 02:38 INDICATION: Chest pain, shortness of breath. Elevated d-dimer. TECHNIQUE: Computed tomography (CT) pulmonary angiogram of the chest was performed with 100 mL Omnipa que-350 intravenous contrast. Additional 3D reconstructions utilizing coronal maximum intensity proje ction (MIP) were performed. Automated exposure control and iterative reconstruction technique were em ployed. The dose-length product was 791.96 mGy-cm. COMPARISON: 10/04/2019 FINDINGS: No pulmonary embolism. Enlargement of the central pulmonary arteries consistent with pulmonary 2 hype rtension. Mild emphysema. Groundglass opacities and patchy consolidation in the right lower lobe most prominent at the medial and posterior basilar segments which is suspicious for aspiration and/or pne umonia. Mild atelectasis in the lingula and anterobasilar left lower lobe. Calcified right lower lobe nodule consistent with old granulomatous disease. Unchanged 5 mm noncalcified granuloma in the right upper lobe. Small posterior layering right pleural effusion. Cardiomegaly. Atherosclerotic coronary artery calcific location. No pericardial effusion. Thoracic aorta is normal in caliber with no dissec tion. Small sliding-type hiatal hernia with change of prior Michelle-en-Y gastric bypass procedure. Multi ple hepatic calcifications consistent with old granulomatous disease. Unchanged 4 mm low-attenuation right adrenal adenoma. Mild thoracic dextrocurvature with moderate spondylosis. IMPRESSION: 1. No pulmonary collision. 2. Patchy airspace opacities in the right lower lobe which suspicious for aspiration and/or pneumonia . 3. Mild emphysema. 4. Very small right pleural effusion. 5. Cardiomegaly. 6. Enlargement of the central pulmonary arteries consistent with pulmonary arterial hypertension. 7. Small sliding-type hiatal hernia with change of Michelle-en-Y gastric bypass procedure. Reviewed, dictated and finalized at location A. GER CORE IMPRESSION: 1. No pulmonary collision. 2. Patchy airspace opacities in the right lower lobe which suspicious for aspir ation and/or pneumonia. 3. Mild emphysema. 4. Very small right pleural effusion. 5. Cardiomegaly. 6. Enlargement of the central pulmonary arteries consistent with pulmonary cristian rial hypertension. 7. Small sliding-type hiatal hernia with change of Michelle-en-Y gastric bypass pro cedure.
--- NOTE | ~2024-09-19 | US_ITS ---
EXAMINATION: US venous doppler LE DATE: 09/20/2024 12:29 INDICATION: Chest pain and shortness of breath. Elevated d-dimer. TECHNIQUE: Grayscale ultrasound images without and with compression and Doppler ultrasound images of the bilateral lower extremity veins were obtained. COMPARISON: 05/26/2020 FINDINGS: Noncompressive occlusive appearing deep venous thrombosis in the paired right peroneal veins. The vis ualized portions of right common femoral vein, profunda (deep) femoral vein, femoral vein, popliteal vein, posterior tibial veins, gastrocnemius vein and greater saphenous vein outflow are patent. The visualized portions of left common femoral vein, profunda femoral vein, femoral vein, popliteal v ein, posterior tibial veins, peroneal veins, gastrocnemius vein and greater saphenous vein outflow ar e patent. IMPRESSION: 1. [id number] deep venous thrombosis in the right peroneal veins. Findings were discussed with Sharonda Barragan, the nurse caring for the patient, at 1:12 PM. 2. No deep venous thrombosis in the left lower limb. Reviewed, dictated and finalized at location A. EMIC AFFAIRS VICE PRESIDENT IMPRESSION: 1. [id number] deep venous thrombosis in the right peroneal veins. Findings were discussed with Nicole Barragan, the nurse caring for the patient, at 1: 12 PM. 2. No deep venous thrombosis in the left lower limb.
--- NOTE | ~2024-09-19 | XR_ITS ---
EXAMINATION: XR abdomen/kub 1V DATE: 09/30/2024 14:09 INDICATION: Abdominal pain after meals. TECHNIQUE: A supine view of the abdomen on 2 radiographs was obtained. COMPARISON: CT abdomen and pelvis 09/24/2024 FINDINGS: There are no dilated loops of bowel. There is a small volume of stool in the colon. There a re surgical changes of the stomach. There are surgical clips in the abdomen. IMPRESSION: 1. Normal bowel gas pattern. Reviewed, dictated and finalized at location A. EL MARKER
--- NOTE | ~2024-09-19 | CT_ITS ---
EXAMINATION: CTA abdomen pelvis DATE: 09/24/2024 15:09 INDICATION: Abdominal pain. Assess for mesenteric ischemia. TECHNIQUE: Computed tomographic angiography (CTA) of the abdomen and pelvis was performed with 100 mL Omnipaque-350 intravenous contrast. Additional 3D reconstructions utilizing rotating maximum intensi ty projection (MIP) were performed. Automated exposure control and iterative reconstruction technique were employed. The dose-length product was 1363.20 mGy-cm. COMPARISON: CT studies dated 09/19/2024 and 03/18/2021 FINDINGS: Mild bibasilar atelectasis/scarring. Calcified right lower lobe nodule consistent with old granulomat ous disease. Mild cardiomegaly. Atherosclerotic coronary artery calcification. No pericardial or pleu ral effusion. Small sliding-type hiatal hernia. Cholecystectomy clips the gallbladder fossa. Nodular liver surface consistent with cirrhosis. There are also multiple scattered hepatic calcifications con sistent with old granulomatous disease. Spleen, pancreas and left adrenal gland are normal. Unchanged 1.5 cm low-attenuation right adrenal adenoma. Mild left-sided and moderate right-sided renal atrophy . There is fluid throughout the colon consistent with nonspecific diarrhea. Bladder is normal. The ut erus and bilateral ovaries are not identified and have likely been surgically resected. There is mild scattered calcified atherosclerosis of the normal caliber abdominal aorta and many of the other cristian yana. There is minimal, significantly less than 50% stenosis at the origin of the celiac axis. No sig nificant stenosis of the superior mesenteric or inferior mesenteric arteries. No free intraperitoneal gas or fluid. No pathologically enlarged abdominal or pelvic lymphadenopathy. Mild thoracolumbar lev ocurvature with moderate lower thoracic and severe lumbar spondylosis. Moderate bilateral hip and sac roiliac osteoarthritis. IMPRESSION: 1. Nonspecific diarrhea with no obstruction or abnormal bowel wall thickening. 2. Small amount of scattered atherosclerotic plaque along the normal caliber abdominal aorta. No eval uation significant stenosis and several of its branches with no hemodynamically significant stenosis seen at the celiac axis, superior or inferior mesenteric arteries. 3. Mild cardiomegaly. 4. Small sliding-type hiatal hernia. 5. Cirrhosis. 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 Nonspecific diarrhea with no obstruction or abnormal bowel wall thickening. 2. Small amount of scattered atherosclerotic plaque along the normal caliber ab dominal aorta. No evaluation significant stenosis and several of its branches w ith no hemodynamically significant stenosis seen at the celiac axis, superior o r inferior mesenteric arteries. 3. Mild cardiomegaly. 4. Small sliding-type hiatal hernia. 5. Cirrhosis.
--- NOTE | 2024-09-19 08:23 | ECG_ITS ---
Test Date: 2024-09-19 08:22:11 Measurements Intervals [place] Rate: 74 P: 0 GA: 0 QRS: 103 QRSD: 126 T: -11 QT: 376 QTc: 417 Interpretive Statements ATRIAL FIBRILLATION RIGHT AXIS DEVIATION RIGHT BUNDLE BRANCH BLOCK CANNOT R/O SEPTAL INFARCT, AGE INDETERMINATE BASELINE ARTIFACT- I, III, AVR, AVL, AVF, V6 ABNORMAL ECG No previous ECG available for comparison Electronically Signed On 09-19-2024 08:44:27 STUDENT LIAISON OFFICER by Derian Tineo D.O.
[2024-09-19 08:44] LABS: Basophils Percent Auto 0.6 % (0.2-1.2); Eosinophils Absolute Auto 0.1 K/mm3 (0-0.3); Eosinophils Percent Auto 1.4 % (0-4.4); Hematocrit 32.9 % (37.0-47.0); Hemoglobin 10.2 g/dL (12.0-15.0); Immature Granulocyte Absolute 0.02 K/mm3 (0.00-0.031); Immature Granulocyte Percent A 0.4 % (0-0.5); Lymphocytes Absolute Auto 0.72 K/mm3 (0.9-3.2); Lymphocytes Percent Auto 14.1 % (18.3-44.2); Mean Corpuscular Hemoglobin 32.7 pg (26-34); Mean Corpuscular Volume 105.4 fl (80-100); Mean Platelet Volume 9.3 fl (7.4-10.4); Monocytes Absolute Auto 0.4 K/mm3 (0.1-0.6); Monocytes Percent Auto 8.1 % (2.6-8.5); Neutrophils Absolute Auto 3.8 K/mm3 (1.3-6.7); Neutrophils Percent Auto 75.4 % (45.5-73.1); Platelet Count Result 237 k/mm3 (150-375); Red Blood Count 3.12 M/mm3 (4.2-5.4); Red Cell Distribution Width 14.5 % (11.5-14.5); White Blood Count 5.1 K/mm3 (4.5-10.0)
[2024-09-19 08:55] LABS: Alanine Aminotransferase 20 U/L (6-35); Albumin Level 4.2 g/dL (3.5-5.1); Alkaline Phosphatase 127 U/L (38-126); Anion Gap 6 mmol/L (4-12); Aspartate Amino Transferase 26 U/L (14-36); Bilirubin,Total 0.5 mg/dL (0.2-1.3); Blood Urea Nitrogen 20 mg/dL (7-17); Calcium 8.9 mg/dL (8.4-10.2); Carbon Dioxide 24 mmol/L (22-30); Chloride 108 mmol/L (98-107); Estimated CRCL calculation 78 ml/min; Estimated Glomerular Filt Rate > 60; Glucose 120 mg/dL (65-110); Lipase 70 U/L (23-300); Magnesium 2.5 mg/dL (1.6-2.3); Potassium 5.1 mmol/L (3.4-5.0); Sodium 138 mmol/L (137-145)
[2024-09-19] MEDS: SODIUM CHLORIDE 0.9% IV 1,000 ML 999 ML IV CONT (09:01)
[2024-09-19] MEDS: dexAMETHasone SOD PHOS INJ 10 MG/ML 1 ML VIAL IV PUSH (09:02)
[2024-09-19 09:06] LABS: NT Pro B Type Natriuretic Pept 7270 pg/mL (19.9-100); Troponin I 0.013 ng/mL (0.000-0.034)
[2024-09-19 09:11] LABS: Macrocytosis 1+ (NORMAL); Ovalocytes 1+; Platelet Estimate Adequate (Adequate); Schistocytes None Seen
--- NOTE | 2024-09-19 09:13 | ED.GENADULT ---
HPI - General Adult General Chief complaint: Shortness of Breath/Dyspnea Stated complaint: SOB Time Seen by Provider: 09/19/24 08:20 History of Present Illness HPI narrative: This is a 78-year-old female with multiple co morbidities presenting w/ difficulty breathing. Patient says the breathing started getting worse yesterday. She has been taking her breathing treatments and Lasix as directed. She does note that she has had diarrhea over the last week but denies fevers chills URI symptoms or other complaints. No lower extremity edema. Patient is very anxious. Patient has not been able to take her Eliquis due to cost. Related Data Home Medications Medication Instructions Recorded Confirmed hydrocodone 10 mg-acetaminophen 1 tablet PO Q6H PRN Pain 05/26/20 09/12/24 325 mg tablet cyclobenzaprine 5 mg tablet 5 mg PO TID PRN 09/12/24 09/12/24 Allergies Allergy/AdvReac Type Severity Reaction Status Date / Time quetiapine [From Seroquel] Allergy Intermediate Confusion Verified 09/19/24 09:00 FOR[facility], [facility] Past Medical History Medical History (HFpEF) heart failure with preserved ejection fraction Acute and chronic respiratory failure with hypoxia Anxiety Anxiety disorder, unspecified Arthritis Asthma Benign colon polyp Benign essential tremor Chronic anemia Chronic anticoagulation Chronic atrial fibrillation Chronic diastolic congestive heart failure Chronic obstructive pulmonary disease Chronic pain associated with significant psychosocial dysfunction Chronic pain syndrome Due to chronic back and neck pain. She is on long-term opiate therapy. Chronic respiratory failure with hypoxia, on home oxygen therapy Depression Diabetic polyneuropathy associated with type 2 diabetes mellitus Emphysema lung Fibromyalgia Gastroesophageal reflux disease History of tobacco use Hypertension Inguinal hernia Low back pain Major depressive disorder, single episode, unspecified Mammogram abnormal Obstructive sleep apnea Osteoporosis Peripheral neuropathy Seasonal allergies Severe pulmonary arterial systolic hypertension RVSP of 63 millimeters of mercury on echocardiogram in June 2019. Takotsubo cardiomyopathy In May 2019 with ejection fraction as low as 25 to 30%. EF improved to 65% on echo in June 2019. Type 2 diabetes mellitus with autonomic neuropathy Uterine cancer Surgical History Surgical History History of 2 sections History of cardiac cath History of cholecystectomy History of dilatation and curettage History of exploratory laparotomy With adhesiolysis. History of gastric bypass History of incisional hernia repair History of right knee joint replacement History of surgical removal of ganglion cyst History of total abdominal hysterectomy and bilateral salpingo-oophorectomy For uterine cancer. History of tubal ligation Family History Family History Mother Family history of heart disease in male family member before age 55 Diabetes mellitus Patient's mother is Family history of chronic obstructive pulmonary disease Father Family history of arthritis Patient's father is Family history of emphysema Family history of lung disease Sibling Family history of malignant neoplasm of ovary Family history of malignant neoplasm Patient's sister is Patient's sister is in good health Family history of malignant neoplasm of uterus Grandparent Diabetes mellitus Other Family history of cardiovascular disease Family history of osteoarthritis Hypertension Social History Social History (Updated 09/12/24 @ 10:00 by Araceli Wren) Social History: . Lives alone but has family close by. Smoked up to 2 packs of cigarettes per day for 40 years and quit in 2000. No alcohol or drug abuse. She designates her daughter, Carmita Day, as her surrogate decision maker. Code status: Full code. Smoking packs per day: 3 Smoking cigarettes per day: 60.0 Years smoked: 30 Smoking pack-years: 90.00 Smoking status: Former smoker Tobacco type: cigarettes Second hand tobacco smoke exposure: No Alcohol intake: never Substance use: current Substance use type: opiates Do You Feel Safe in your Home?: Yes Lack of Transportation: No Lack of Food: Never True Current Housing: I Have Housing Concerned About Future Housing: No Difficulty Paying Gas/Electric Bills: No Difficulty Paying for Meds: No Currently Unemployed: YES Education: Don't Know Difficulty w/ Childcare or Family Care: No Living arrangements: alone Occupation/Education: retired Gender identity (if verbalized by the patient): Female Sexual Orientation (if Verbalized by the Patient): Straight or Heterosexual Spiritual care concerns: No Exam Narrative: APPEARANCE: patient appears acute on chronically unwell, tripoding, tearful Head: atraumatic. EYES: EOMI, NOSE: Atraumatic NECK: Trachea midline RESPIRATORY: tachypneic, increased oxygen demand, scattered crackles lung bases CARDIOVASCULAR: irregular,no peripheral edema ABDOMINAL: soft nontender MUSCULOSKELETAl: No obvious deformities NEURO: Alert. Moving 4/4 extremities SKIN:: Warm, dry. Normal color PSYCHIATRIC: Normal affect point of care cardiothoracic echo showed no B lines or evidence of fluid overload in the lungs. The patient's IVC is flat with significant respiratory variation. Course Vital Signs Vital signs: Vital Signs Temperature 97.6 F 09/19/24 08:14 Pulse Rate 77 09/19/24 08:14 Respiratory Rate 23 H 09/19/24 08:14 Blood Pressure 178/97 H 09/19/24 08:14 Pulse Oximetry 100 09/19/24 08:14 Oxygen Delivery Nasal Cannula 09/19/24 08:14 Oxygen Flow Rate 4 09/19/24 08:14 Temperature 97.6 F 09/19/24 08:14 Pulse Rate 101 H 09/19/24 12:46 Respiratory Rate 18 09/19/24 12:46 Blood Pressure 161/72 H 09/19/24 11:32 Pulse Oximetry 99 09/19/24 12:46 Oxygen Delivery Nasal Cannula 09/19/24 08:38 Oxygen Flow Rate 4 09/19/24 08:38 Medical Decision Making MDM Narrative Medical decision making narrative: -Course: 79-year-old female well known to our hospital presenting for difficulty breathing and diarrhea x1. POC cardiothoracic ultrasound did not show significant edema in the lungs or fluid overload via the IVC. patient given breathing treatments for COPD. Given 1 L of normal saline for suspected dehydration from the diarrhea. patient is a chronic benzodiazepine and opiate user and was provided those medications. incidentally found have a UTI will be treated with ceftriaxone. Given her poor overall health patient will be admitted the hospital further management. -DDX includes but is not limited to: COPD, CHF, viral syndrome, pulmonary hypertension -Independent interpretation of studies: labs and imaging reviewed -Discussion of Management/Consultants:Crystal -Interventions: DuoNeb treatment, dexamethasone, Valium, [place], ceftriaxone -Shared decision making / Disposition: admitted Vital Signs Vital Signs: Vital Signs Temperature 97.6 F 09/19/24 08:14 Pulse Rate 77 09/19/24 08:14 Respiratory Rate 23 H 09/19/24 08:14 Blood Pressure 178/97 H 09/19/24 08:14 Pulse Oximetry 100 09/19/24 08:14 Oxygen Delivery Nasal Cannula 09/19/24 08:14 Oxygen Flow Rate 4 09/19/24 08:14 Temperature 97.6 F 09/19/24 08:14 Pulse Rate 101 H 09/19/24 12:46 Respiratory Rate 18 09/19/24 12:46 Blood Pressure 161/72 H 09/19/24 11:32 Pulse Oximetry 99 09/19/24 12:46 Oxygen Delivery Nasal Cannula 09/19/24 08:38 Oxygen Flow Rate 4 09/19/24 08:38 Lab Data 09/19/24 08:38 09/19/24 08:38 Labs: Lab Results 09/19/24 09/19/24 09/19/24 Range/Units 08:38 09:11 12:03 WBC 5.1 (4.5-10.0) K/mm3 RBC 3.12 L (4.2-5.4) M/mm3 Hgb 10.2 L (12.0-15.0) g/dL Hct 32.9 L (37.0-47.0) % MCV 105.4 H (80-100) fl MCH 32.7 (26-34) pg MCHC 31.0 L (32-36) g/dl RDW 14.5 (11.5-14.5) % Plt Count 237 (150-375) k/mm3 MPV 9.3 (7.4-10.4) fl Immature Gran % (Auto) 0.4 (0-0.5) % Neut % (Auto) 75.4 H (45.5-73.1) % Lymph % (Auto) 14.1 L (18.3-44.2) % [place] % (Auto) 8.1 (2.6-8.5) % Eos % (Auto) 1.4 (0-4.4) % Baso % (Auto) 0.6 (0.2-1.2) % Lymph # (Auto) 0.72 L (0.9-3.2) K/mm3 [place] # (Auto) 0.4 (0.1-0.6) K/mm3 Eos # (Auto) 0.1 (0-0.3) K/mm3 Baso # (Auto) 0.0 (0.0-0.1) K/mm3 Abs Immat Gran (auto) 0.02 (0.00-0.031) K/mm3 Absolute Neuts (auto) 3.8 (1.3-6.7) K/mm3 Absolute Nucleated RBC 0.000 (0.0-0.012) K/mm3 Nucleated RBC % 0.0 (0.0-0.2) % Platelet Estimate Adequate (Adequate) Macrocytosis 1+ (NORMAL) Ovalocytes 1+ Schistocytes None seen PT 14.0 (11.1-14.7) Seconds INR 1.0 APTT 31.0 (22.3-36.8) Seconds Sodium 138 (137-145) mmol/L Potassium 5.1 H (3.4-5.0) mmol/L Chloride 108 H (98-107) mmol/L Carbon Dioxide 24 (22-30) mmol/L Anion Gap 6 (4-12) mmol/L BUN 20 H (7-17) mg/dL Creatinine 0.60 L (0.7-1.0) mg/dL Estim Creat Clear Calc 78 ml/min Estimated GFR > 60 (59 - ) Glucose 120 H (65-110) mg/dL Lactic Acid 1.0 (0.7-2.0) mmol/L Calcium 8.9 (8.4-10.2) mg/dL Magnesium 2.5 H (1.6-2.3) mg/dL Total Bilirubin 0.5 (0.2-1.3) mg/dL AST 26 (14-36) U/L ALT 20 (6-35) U/L Alkaline Phosphatase 127 H (38-126) U/L Troponin I 0.013 0.012 (0.000-0.034) ng/mL NT-Pro-B Natriuret Pep 7270 H (19.9-100) pg/mL Total Protein 7.0 (6.3-8.2) g/dL Albumin 4.2 (3.5-5.1) g/dL Lipase 70 (23-300) U/L Urine Color Yellow (Yellow) Urine Appearance Clear (Clear) Urine pH 5.5 (5.0-9.0) Ur Specific [place] 1.017 (1.001-1.035) Urine Protein Negative (Negative) mg/dL Urine Glucose (UA) Negative (Negative) mg/dL Urine Ketones Trace H (Negative) mg/dL Ur Blood (Man) Non-hemolyzed trace H (Negative) Urine Nitrate Positive H (Negative) Urine Bilirubin Negative (Negative) Urine Urobilinogen 0.2 (<2.0) mg/dL Leukocyte Esterase Rfl 2+ H (Negative) PRADIP/UL Urine RBC 0-2 (0-2) /hpf Urine WBC 21-50 H (0-3) /hpf Ur Squamous Epith Cells None seen (Few) /hpf Urine Bacteria 4+ H /hpf Urine Casts 0-2 Influenza A (RT-PCR) Negative (Negative) Influenza B (RT-PCR) Negative (Negative) RSV (RT-PCR) Negative (Negative) SARS-CoV-2 RNA (RT-PCR) Negative (Negative) ABG Data ABG results: 09/19/24 09:36 Puncture Site Right brachial ABG pH 7.347 L ABG pCO2 40.4 ABG pO2 94.5 ABG PO2/FiO2 Ratio 2.63 ABG HCO3 21.7 L ABG O2 Saturation 96.9 ABG O2 Content 15.4 L ABG Base Excess -3.7 A-a Gradient 115.3 Oxyhemoglobin 96.4 Total Hemoglobin 11.3 L O2 Delivery Device Nasal cannula O2 Liters/Min 4.0 FiO2 36 Discharge Plan Discharge Clinical Impression: Acute dyspnea, COPD (chronic obstructive pulmonary disease), Anxiety, Chronic prescription opiate use Patient Disposition: Still a Patient Condition: Stable Prescriptions: No Action carvedilol 6.25 mg tablet See Rx Instructions .ROUTE .COMPLEX Qty: 180 1RF Dose Instruction: TAKE 1 TABLET BY MOUTH EVERY 12 HOURS Rx Instructions: TAKE 1 TABLET BY MOUTH EVERY 12 HOURS hydralazine 10 mg tablet See Rx Instructions .ROUTE .COMPLEX Qty: 60 5RF Dose Instruction: TAKE 1 TABLET BY MOUTH TWICE DAILY Rx Instructions: TAKE 1 TABLET BY MOUTH TWICE DAILY furosemide 40 mg tablet See Rx Instructions .ROUTE .COMPLEX Qty: 100 0RF Dose Instruction: TAKE 1 TABLET BY MOUTH EVERY MORNING Rx Instructions: TAKE 1 TABLET BY MOUTH EVERY MORNING losartan 100 mg tablet See Rx Instructions .ROUTE .COMPLEX Qty: 90 0RF Dose Instruction: TAKE 1 TABLET BY MOUTH DAILY Rx Instructions: TAKE 1 TABLET BY MOUTH DAILY Xarelto 20 mg tablet 20 mg PO DAILY Qty: 30 4RF Rx Instructions: must administer with evening meal cyclobenzaprine 5 mg tablet 5 mg PO TID PRN spironolactone 25 mg tablet See Rx Instructions .ROUTE .COMPLEX Qty: 90 1RF Dose Instruction: TAKE 1 TABLET BY MOUTH DAILY Rx Instructions: TAKE 1 TABLET BY MOUTH DAILY alprazolam 0.5 mg tablet 0.5 mg PO BID Qty: 60 1RF (DME) blood-glucose meter [[facility] Blood Glucose Monitor] [facility] See Rx Instructions .Route Qty: 1 0RF Rx Instructions: Monitor blood sugar once a day (DME) Blood Glucose Test Strip See Rx Instructions .Route Qty: 50 2RF Rx Instructions: monitor sugar twice a day atorvastatin 20 mg tablet 20 mg PO QHS Qty: 90 3RF hydrocodone-acetaminophen 10-325 mg tablet 1 tablet PO Q6H PRN (Reason: Pain) albuterol sulfate 2.5 mg /3 mL (0.083 %) solution for nebulization 2.5 mg inhalation QID PRN (Reason: shortness of breath or wheezing) Qty: 360 5RF albuterol sulfate 90 mcg/actuation HFA aerosol inhaler 1 - 2 puff INHALATION Q4-6H PRN (Reason: Shortness Of Breath) Qty: 8.5 5RF potassium chloride 20 mEq tablet extended release See Rx Instructions .ROUTE .COMPLEX Qty: 90 0RF Dose Instruction: TAKE 1 TABLET BY MOUTH DAILY AT 8 AM Rx Instructions: TAKE 1 TABLET BY MOUTH DAILY AT 8 AM levothyroxine 112 mcg tablet 112 mcg PO DAILY Qty: 30 2RF pantoprazole 40 mg tablet,delayed release (DR/EC) See Rx Instructions .ROUTE .COMPLEX Qty: 100 1RF Dose Instruction: TAKE 1 TABLET BY MOUTH EVERY MORNING Rx Instructions: TAKE 1 TABLET BY MOUTH EVERY MORNING budesonide-formoterol [Symbicort] 80-4.5 mcg/actuation HFA aerosol inhaler See Rx Instructions .ROUTE .COMPLEX Qty: 10.2 1RF Dose Instruction: INHALE 2 PUFFS BY MOUTH EVERY 12 HOURS. RINSE AND SPIT Rx Instructions: INHALE 2 PUFFS BY MOUTH EVERY 12 HOURS. RINSE AND SPIT. Keep appt for further refills cholecalciferol (vitamin D3) 1,250 mcg (50,000 unit) capsule 1,250 mcg PO WEEKLY 56 Days Qty: 8 0RF Follow-up/Referrals: Aleida El MD [Primary Care Provider] -
--- NOTE | 2024-09-19 09:16 | PC.NURSE ---
external catheter placed on patient
[2024-09-19] MEDS: IPRATROPIUM 0.5 MG/ALBUTEROL SULFATE 2.5 MG AMPUL.NEB 3 ML 12 ML INHALATION (09:20)
--- NOTE | 2024-09-19 09:20 | PC.NURSE ---
respiratory at bedside for ABG and treatment
[2024-09-19 09:22] LABS: Influenza A QL RT-PCR Negative (Negative); Influenza B QL RT-PCR Negative (Negative); RSV RNA, RT-PCR Negative (Negative); SARS-CoV-2 RNA PCR Negative (Negative)
[2024-09-19 09:23] LABS: Add Urine Microscopic? YES; Appearance Urine Clear (Clear); Bacteria Urine 4+ /hpf; Bilirubin Urine Negative (Negative); Blood Urine Non-Hemolyzed Trace (Negative); Color Urine Yellow (Yellow); Glucose Urine UA Negative (Negative); Ketones Urine Trace mg/dL (Negative); Leukocyte Esterase Ur 2+ LEU/UL (Negative); Nitrate Urine Positive (Negative); Non Pathogenic Casts 0-2; Protein Urine Negative (Negative); RBC Urine 0-2 /hpf (0-2); Specific Grav Ur 1.017 (1.001-1.035); Squamous Epithelial Cell Urine None Seen /hpf (Few); Urobilinogen Urine 0.2 mg/dL (<2.0); WBC Urine 21-50 /hpf (0-3); pH Urine 5.5 (5.0-9.0)
[2024-09-19] MEDS: diazePAM INJ (*CRX) 10 MG/2 ML SYRINGE 2.5 MG IV PUSH (09:30)
[2024-09-19 09:43] LABS: Alveolar/Arterial O2 Gradient 115.3 mmHg; Base Excess ABG -3.7 mEq/l (+/-2.0); Fractional Inspired Oxygen 36 %; HCO3 ABG 21.7 mEq/l (22.0-26.0); Oxygen Content ABG 15.4 %vol (16.0-22.0); Oxygen Saturation ABG 96.9 % (95.0-100.0); Oxyhemoglobin 96.4 % THb (90.0-100.0); PCO2 ABG 40.4 mmHg (35.0-45.0); PO2 ABG 94.5 mmHg (80.0-100.0); PO2 FiO2 Ratio Arterial Blood 2.63 %; Total Hemoglobin 11.3 g/dL (12.0-18.0); pH ABG 7.347 (7.350-7.450)
[2024-09-19 09:44] LABS: Device NASAL CANNULA; Site Drawn RIGHT BRACHIAL
--- NOTE | 2024-09-19 10:47 | PC.NURSE ---
patient refusing to keep blood pressure cuff on arm. patient states it hurts too much . Patient also requesting home pain medication due to chronic back pain. will speak with provider
[2024-09-19] MEDS: HYDROcodone/acetaminophen (*CRX) 5-325 MG TABLET 2 TAB PO (10:57)
--- NOTE | 2024-09-19 12:07 | ECG_ITS ---
Test Date: 2024-09-19 12:15:28 Measurements Intervals [place] Rate: 101 P: 0 AR: 0 QRS: -50 QRSD: 126 T: 64 QT: 366 QTc: 476 Interpretive Statements ATRIAL FIBRILLATION WITH RAPID VENTRICULAR RESPONSE LEFT AXIS DEVIATION RIGHT BUNDLE BRANCH BLOCK CANNOT R/O SEPTAL INFARCT, AGE INDETERMINATE INFERIOR INFARCT, AGE INDETERMINATE BASELINE ARTIFACT- I, II, III, AVR, AVL, AVF, V4 ABNORMAL ECG COMPARED WITH PRIOR ECG 09-19-24 08:22 HEART RATE HAS INCREASED Electronically Signed On 09-19-2024 12:17:55 [employer] by Derian Tineo D.O.
[2024-09-19 12:30] LABS: Troponin I 0.012 ng/mL (0.000-0.034)
--- NOTE | 2024-09-19 13:50 | PM.IMHP ---
H&P: HPI History of Present Illness Date/Time: 09/19/24 13:50 Chief Complaint: Shortness of breath. Narrative: This is a 79-year-old female with multiple medical problems including chronic respiratory failure on home oxygen, obstructive sleep apnea, chronic obstructive pulmonary disease, pulmonary hypertension, heart failure with preserved ejection fraction, chronic atrial fibrillation for which she is prescribed anticoagulation however she has not been taking it for a couple of months due to cost, chronic anemia, and anxiety who presented to the emergency department via EMS from home for evaluation of shortness of breath. The patient provides the following history. She has chronic dyspnea on exertion but has been feeling increasingly short of breath with exertion over the past couple of days. She also endorses orthopnea and a cough which is rarely productive of light green phlegm. She has anterior chest pain which is reproducible on palpation. Her weight is stable and in fact she thinks she has lost a few lb. She has had some urinary frequency. She has not noticed any swelling in her legs and denies calf pain. She also denies syncope, near syncope, exertional chest pain, pleuritic pain, palpitations, nausea, vomiting, and sweats. No fever, chills, sweats, abdominal pain, back pain, diarrhea, or dysuria. In the ED: She was afebrile on arrival. She is in atrial fibrillation with rates in the upper 90s to low 100s. SpO2 has been in the upper 90s on her usual 4 L. labs were significant for WBC count of 5.1, hemoglobin 10.2, potassium 5.1, BUN 20, creatinine 0.60, lactic acid 1.0, proBNP 7270, troponin 0.013. Urinalysis was positive for nitrates, leukocyte esterase, bacteria, and 21 to 50 WBC per high-power field. She tested negative for COVID, RSV, and influenza. Chest x-ray showed probable bibasilar pulmonary edema and central congestive changes. Review of Systems Review of Systems: 12 systems were reviewed and are negative except for as per HPI. [facility] Past Medical History Medical History (Updated 09/19/24 @ 22:15 by Tanna Munoz PA-C) Anxiety Arthritis Asthma Benign colon polyp Benign essential tremor Chronic anemia Chronic anticoagulation Chronic atrial fibrillation Chronic diastolic congestive heart failure Chronic obstructive pulmonary disease Chronic pain syndrome Due to chronic back and neck pain. She is on long-term opiate therapy. Chronic respiratory failure with hypoxia, on home oxygen therapy Depression Diabetic polyneuropathy associated with type 2 diabetes mellitus Emphysema lung Fibromyalgia Gastroesophageal reflux disease Heart failure with preserved ejection fraction History of tobacco use Hypertension Inguinal hernia Obstructive sleep apnea Osteoporosis Peripheral neuropathy Seasonal allergies Severe pulmonary arterial systolic hypertension RVSP of 63 millimeters of mercury on echocardiogram in June 2019. Takotsubo cardiomyopathy In May 2019 with ejection fraction as low as 25 to 30%. EF improved to 65% on echo in June 2019. Type 2 diabetes mellitus with autonomic neuropathy Uterine cancer Surgical History Surgical History History of 2 sections History of cardiac cath History of cholecystectomy History of dilatation and curettage History of exploratory laparotomy With adhesiolysis. History of gastric bypass History of incisional hernia repair History of right knee joint replacement History of surgical removal of ganglion cyst History of total abdominal hysterectomy and bilateral salpingo-oophorectomy For uterine cancer. History of tubal ligation Family History Family History Mother Family history of heart disease in male family member before age 55 Diabetes mellitus Patient's mother is Family history of chronic obstructive pulmonary disease Father Family history of arthritis Patient's father is Family history of emphysema Family history of lung disease Sibling Family history of malignant neoplasm of ovary Family history of malignant neoplasm Patient's sister is Patient's sister is in good health Family history of malignant neoplasm of uterus Grandparent Diabetes mellitus Other Family history of cardiovascular disease Family history of osteoarthritis Hypertension Social History Social History Social History: . Lives alone but has family close by. Smoked up to 2 packs of cigarettes per day for 40 years and quit in 2000. No alcohol or drug abuse. She designates her daughter, Carmita Day, as her surrogate decision maker. Code status: Full code. Smoking packs per day: 3 Smoking cigarettes per day: 60.0 Years smoked: 30 Smoking pack-years: 90.00 Smoking status: Former smoker Tobacco type: cigarettes Second hand tobacco smoke exposure: No Alcohol intake: never Substance use: current Substance use type: opiates Do You Feel Safe in your Home?: Yes Lack of Transportation: No Lack of Food: Never True Current Housing: I Have Housing Concerned About Future Housing: No Difficulty Paying Gas/Electric Bills: No Difficulty Paying for Meds: No Currently Unemployed: YES Education: Don't Know Difficulty w/ Childcare or Family Care: No Living arrangements: alone Occupation/Education: retired Spiritual care concerns: No Meds Home Medications and Allergies Home Medications Medication Instructions Recorded Confirmed Type hydrocodone 10 mg-acetaminophen 1 tablet PO Q6H PRN Pain 05/26/20 09/19/24 History 325 mg tablet albuterol sulfate 2.5 mg/3 mL 2.5 mg (3 mL) inhalation QID PRN 04/03/23 09/19/24 Rx (0.083 %) solution for nebulization shortness of breath or wheezing #360 mL atorvastatin 20 mg tablet 20 mg PO QHS #90 tabs 07/05/23 09/19/24 Rx albuterol sulfate 90 mcg/actuation 1 - 2 puff inhalation Q4-6H PRN 05/26/24 09/19/24 Rx aerosol inhaler Shortness Of Breath #8.5 grams levothyroxine 112 mcg tablet 112 mcg PO DAILY #30 tabs 08/11/24 09/19/24 Rx alprazolam 0.5 mg tablet 0.5 mg PO BID #60 tabs 09/12/24 09/19/24 Rx budesonide-formoterol HFA 80 See Rx Instructions .Route 09/15/24 09/19/24 Rx mcg-4.5 mcg/actuation aerosol .COMPLEX #10.2 grams inhaler (Symbicort) carvedilol 6.25 mg tablet 6.25 mg PO BID 09/19/24 09/19/24 History furosemide 40 mg tablet 40 mg PO DAILY 09/19/24 09/19/24 History hydralazine 10 mg tablet 10 mg PO BID 09/19/24 09/19/24 History losartan 100 mg tablet 100 mg PO DAILY 09/19/24 09/19/24 History pantoprazole 40 mg tablet,delayed 40 mg PO DAILY 09/19/24 09/19/24 History release potassium chloride 20 mEq 20 meq PO DAILY 09/19/24 09/19/24 History tablet,extended release spironolactone 25 mg tablet 25 mg PO DAILY 09/19/24 09/19/24 History Allergies Allergy/AdvReac Type Severity Reaction Status Date / Time quetiapine [From Seroquel] Allergy Intermediate Confusion Verified 09/19/24 15:57 Vital Signs Vital Signs - 24 hr 09/19/24 08:14 09/19/24 08:38 09/19/24 09:37 Temperature 97.6 F Pulse Rate 77 100 Respiratory Rate 23 H 26 H Blood Pressure 178/97 H Pulse Oximetry 100 98 Oxygen Delivery Nasal Cannula Nasal Cannula Oxygen Flow Rate 4 4 09/19/24 10:21 09/19/24 10:57 09/19/24 11:26 Temperature Pulse Rate 97 101 H Respiratory Rate 25 H 24 H 21 H Blood Pressure 161/73 H Pulse Oximetry 98 100 Oxygen Delivery Oxygen Flow Rate 09/19/24 11:30 09/19/24 11:32 09/19/24 11:45 Temperature Pulse Rate 97 101 H 104 H Respiratory Rate 21 H 21 H 26 H Blood Pressure 161/72 H Pulse Oximetry 100 99 98 Oxygen Delivery Oxygen Flow Rate 09/19/24 12:00 09/19/24 12:16 09/19/24 12:34 Temperature Pulse Rate 99 111 H Respiratory Rate 12 25 H Blood Pressure Pulse Oximetry 98 Oxygen Delivery Oxygen Flow Rate 09/19/24 12:46 09/19/24 13:00 09/19/24 13:15 Temperature Pulse Rate 101 H 97 104 H Respiratory Rate 18 15 21 H Blood Pressure Pulse Oximetry 99 97 Oxygen Delivery Oxygen Flow Rate 09/19/24 13:36 09/19/24 13:45 Temperature Pulse Rate 102 H 97 Respiratory Rate 20 21 H Blood Pressure 144/90 H Pulse Oximetry 96 Oxygen Delivery Oxygen Flow Rate Exam Narrative: General: Chronically ill-appearing female in the semi-Chamberlain position in bed. Weight: 109.6 kg. BMI: 40.2. HEENT: PERRL, EOMI. Sclera anicteric. Upper eyelids are erythematous with crusting around the lash line and yellow/green discharge in medial bilaterally. Edentulous. Moist mucous membranes. Neck: Supple. No significant jugular venous distention. Respiratory: Respirations are nonlabored and she is speaking in full sentences. Fine crackles heard at the bases. Chest: She reports tenderness to palpation over the anterior chest wall. Cardiovascular: Regular rate and rhythm with S1-S2. Gastrointestinal: Abdomen is soft, nontender, and nondistended with positive bowel sounds. Skin: Warm and dry. No rash or lesions on limited exam. Extremities: No cyanosis, clubbing, or edema. Radial and pedal pulses intact. No palpable knots or cords. Neurological: Alert. Cranial nerves 2-12 are grossly intact. No gross focal deficits to casual conversation. Psychiatric: Pleasant and cooperative with normal mood and affect. H&P: Results Labs Labs: Short CBC 09/19/24 Range/Units 08:38 WBC 5.1 (4.5-10.0) K/mm3 Hgb 10.2 L (12.0-15.0) g/dL Hct 32.9 L (37.0-47.0) % Plt Count 237 (150-375) k/mm3 BMP 09/19/24 08:38 Sodium 138 Potassium 5.1 H Chloride 108 H Carbon Dioxide 24 BUN 20 H Creatinine 0.60 L Glucose 120 H Calcium 8.9 Cardiac Enzymes 09/19/24 09/19/24 Range/Units 08:38 12:03 Troponin I 0.013 0.012 (0.000-0.034) ng/mL Liver Function 09/19/24 Range/Units 08:38 Total Bilirubin 0.5 (0.2-1.3) mg/dL AST 26 (14-36) U/L ALT 20 (6-35) U/L Alkaline Phosphatase 127 H (38-126) U/L Albumin 4.2 (3.5-5.1) g/dL Urine 09/19/24 Range/Units 09:11 Urine Color Yellow (Yellow) Urine Appearance Clear (Clear) Urine pH 5.5 (5.0-9.0) Ur Specific [place] 1.017 (1.001-1.035) Urine Protein Negative (Negative) mg/dL Urine Glucose (UA) Negative (Negative) mg/dL Imaging Chest X-Ray 09/19/24 10:09 Impression: Probable mild bibasilar pulmonary edema and central congestive change. Assessment and Plan Assessment and plan (1) CHF exacerbation: Code(s): I50.9 - Heart failure, unspecified Status: Acute (2) Macrocytic anemia: Code(s): D53.9 - Nutritional anemia, unspecified Status: Acute (3) Chronic atrial fibrillation: Code(s): I48.20 - Chronic atrial fibrillation, unspecified Status: Acute (4) Chronic obstructive pulmonary disease: Code(s): J44.9 - Chronic obstructive pulmonary disease, unspecified Status: Acute (5) Chronic anemia: Code(s): D64.9 - Anemia, unspecified Status: Acute (6) Bacteriuria with pyuria: Code(s): R82.71 - Bacteriuria; R82.81 - Pyuria Status: Acute (7) Chronic pain disorder: Code(s): G89.4 - Chronic pain syndrome Status: Acute (8) Chronic respiratory failure with hypoxia: Code(s): J96.11 - Chronic respiratory failure with hypoxia Status: Acute (9) Hypertension: Qualifiers: Hypertension type: essential hypertension Qualified Code(s): I10 - Essential (primary) hypertension Code(s): I10 - Essential (primary) hypertension Status: Acute (10) Hypothyroidism (acquired): Code(s): E03.9 - Hypothyroidism, unspecified Status: Acute (11) Type 2 diabetes mellitus: Code(s): E11.9 - Type 2 diabetes mellitus without complications Status: Acute Plan The patient presented to the emergency department for evaluation of increasing shortness of breath from baseline and cough as detailed in HPI. Labs, imaging, EKG, and all reports were personally reviewed. Clinically she has evidence of volume overload which is supported by probable mild bibasilar pulmonary edema and central congestive changes on chest x-ray with a mildly increased proBNP from baseline. She will be diuresed with close monitoring of volume status, renal function, and electrolytes. She does not have any significant wheezing on exam to suggest COPD exacerbation. Pulmonary embolism is considered to be less likely by history however will check a D-dimer. [id number] is elevated though she has not been able to afford DOACs and it may be prudent to start her on warfarin. Continue ceftriaxone for possible UTI, pending cultures. Check iron studies as well as B12 and folate for evaluation of macrocytic anemia. Continue levothyroxine and check TSH. Initiate sliding scale insulin, Accu-Cheks, and hypoglycemic protocol. Her medications will be reviewed and resumed as appropriate. Findings and treatment plan were discussed with the patient. Questions were solicited and answered to satisfaction. The patient's medical management will be taken over by the hospitalist team in a.m. Quality VTE Prophylaxis VTE prophylaxis: pharmacologic ordered Hospitalist [facility] Advance Care Plan I have confirmed that the patient's Advanced Care Plan is present, code status is documented, or surrogate decision maker is listed in patient medical record.: Yes Medication Reconciliation I have utilized all available resources to obtain, update and review the patients current medications (includes all prescriptions, OTC, herbals, cannabis, and nutritional supplements).: Yes
--- NOTE | 2024-09-19 15:36 | ADMGEN ---
This patient, Cheyenne Sawyer, was admitted to [facility] Room 305-01. Patient/family oriented to hospital policies and general routines including ID bracelet, bed and alarms, visiting hours, pain management, procedures, bathroom and other care routines, personal items, smoking policy, room service/diet, and visiting hours. Information on how to activate the Rapid Response Team has been discussed. Patient/Family are encouraged to report perceived risks to care and to ask questions if they do not understand what they are told or what they should do.
--- NOTE | 2024-09-19 16:22 | ECG_ITS ---
Test Date: 2024-09-19 16:33:08 Measurements Intervals [place] Rate: 111 P: 0 NH: 0 QRS: 109 QRSD: 122 T: 24 QT: 310 QTc: 422 Interpretive Statements ATRIAL FIBRILLATION WITH RAPID VENTRICULAR RESPONSE RIGHT AXIS DEVIATION RIGHT BUNDLE BRANCH BLOCK CANNOT R/O SEPTAL INFARCT, AGE INDETERMINATE BASELINE ARTIFACT- I, III, AVR, AVL, V2, V5-V6 ABNORMAL ECG Compared to ECG 09/19/2024 12:15:28 HEART RATE HAS INCREASED Electronically Signed On 09-19-2024 19:02:59 CONDUCTOR AND ENGINEER by Derian Tineo D.O.
[2024-09-19 17:03] LABS: D Dimer 1.23 ug/mL (<0.48)
[2024-09-19] MEDS: FUROSEMIDE INJ 40 MG/4 ML VIAL IV PUSH (17:04)
[2024-09-19] MEDS: hydrALAZINE 10 MG TABLET PO (17:04)
[2024-09-19] MEDS: HYDROcodone/acetaminophen (*CRX) 10-325 MG TABLET 1 TAB PO ×2 (17:04→22:39)
[2024-09-19 17:08] LABS: Troponin I 0.014 ng/mL (0.000-0.034)
[2024-09-19] MEDS: ALBUTEROL SULFATE NEB 2.5 MG/3 ML INH INHALATION ×2 (17:10→17:29)
[2024-09-19 20:00] LABS: Troponin I 0.025 ng/mL (0.000-0.034)
[2024-09-19] MEDS: ATORVASTATIN 20 MG TABLET PO (20:31)
[2024-09-19] MEDS: ALPRAZolam (*CRX) 0.5 MG TABLET PO (20:32)
[2024-09-19] MEDS: carvediloL 6.25 MG TABLET PO (20:32)
[2024-09-19] MEDS: WATER FOR IRRIGATION, STERILE 1,000 ML BOTTLE 1000 ML (21:56)
[2024-09-19 22:38] LABS: Iron 43 ug/dL (37-170)
[2024-09-19 22:41] LABS: Hemoglobin A1C 5.4 % (<5.7)
[2024-09-19 22:47] LABS: Percent Iron Saturation 12 % (20-50)
[2024-09-19 23:12] LABS: Thyroid Stimulating Hormone Reflex 0.687 uIU/mL (0.465-4.68)
[2024-09-19 23:13] LABS: Troponin I 0.035 ng/mL (0.000-0.034)
--- NOTE | 2024-09-19 23:20 | ECG_ITS ---
Test Date: 2024-09-19 23:41:20 Measurements Intervals [place] Rate: 80 P: 0 OK: 0 QRS: 91 QRSD: 125 T: 35 QT: 399 QTc: 462 Interpretive Statements ATRIAL FIBRILLATION RIGHT BUNDLE BRANCH BLOCK CONSIDER ANTERIOR INFARCT, AGE INDETERMINATE BASELINE ARTIFACT- I, II, III, AVR, AVL, AVF, V1-V6 ABNORMAL ECG Compared to ECG 09/19/2024 16:33:08 HEART RATE HAS DECREASED Electronically Signed On 09-20-2024 07:38:12 SEAFOOD SPECIALIST by Derian Tineo D.O.
[2024-09-19] MEDS: MORPHINE SULFATE (*CRX) 2 MG/ML INJ 1 MG IV PUSH (23:30)
[2024-09-19] MEDS: NITROGLYCERIN SL 0.4 MG TABLET SUBLINGUAL (23:44)
[2024-09-19 23:49] LABS: Folic Acid 11.3 ng/mL (2.76->20)
[2024-09-20] VITALS (24 sets, daily range): BP systolic 148–179; BP diastolic 79–108; PULSE 67–103; RESP 19–24; TEMP 36.1–36.8; O2SAT 97–100
--- NOTE | 2024-09-20 | ECHO_ITS ---
Patient Info Name: Cheyenne Sawyer Age: 79 years : 1945 Gender: Female Ht: 65 in Wt: 242 lbs BSA: 2.30 m2 HR: 60 bpm BP: 151 / 102 mmHg Heart Rhythm: Sinus Rhythm Technical Quality: Poor Exam Date: 09/20/2024 2:04 PM Exam Location: Echo Lab Patient Status: Inpatient Admit Date: 09/19/2024 Staff Ordering Physician: Cuong Stone MD Lens Assistant: Connie Carbajal RDCS Attending Provider: Cuong Stone MD Exam Type: CA echo dop color flow w con Study Info Indications - A FIB, ELEVATED TROPONIN Complete two-dimensional, color flow and Doppler transthoracic echocardiogram is performed with contrast to opacify the left ventricle and to improve the deliniation of the left ventricle endocardial borders. Reason for Poor Study: poor echocardiographic windows Summary 1. Left ventricular chamber dimension is normal. 2. There is moderately increased left ventricular wall thickness. 3. Left ventricular systolic function is normal with an ejection fraction by Biplane Method of Discs of 62 %. 4. The left ventricular diastolic function is grade III diastolic dysfunction. 5. Right ventricular chamber dimension is enlarged. 6. Right ventricular systolic function is normal. 7. Right atrial chamber dimension is enlarged. 8. There is mild mitral valve regurgitation. Left Ventricle Left ventricular chamber dimension is normal. There is moderately increased left ventricular wall thickness. Left ventricular systolic function is normal with an ejection fraction by Biplane Method of Discs of 62 %. The left ventricular diastolic function is grade III diastolic dysfunction. Abnromal septal motion due to RV pressure/volume load. Right Ventricle Right ventricular chamber dimension is enlarged. Right ventricular systolic function is normal. Left Atria Left atrial chamber dimension is enlarged. Right Atria Right atrial chamber dimension is enlarged. Aortic Valve The aortic valve is trileaflet. There is no aortic valve stenosis with a peak velocity of 137.63 cm/s, mean gradient of 5 mmHg. There is no aortic valve regurgitation. Mitral Valve The mitral valve has normal leaflets. There is mild mitral valve regurgitation. There is no mitral valve stenosis. Tricuspid Valve There is mild tricuspid valve regurgitation. Mild pulmonary hypertension, estimated pulmonary arterial systolic pressure is 54 mmHg (assuming eRAp 10 mmhg). Inferior Vena Cava Inferior vena cava is not well visualized. Left Ventricular Outflow Tract Name Value Normal LVOT Doppler LVOT Peak Gradient 3 mmHg LVOT Mean Gradient 1 mmHg LVOT VTI 16.46 cm LVOT VTI/AV VTI Ratio 0.60 Pulmonic Valve Name Value Normal PV Doppler PV Peak Gradient 6 mmHg Mitral Valve Name Value Normal MV Doppler MV Decel Douglas 602.72 cm/s2 MV PHT 0 s MV Area (PHT) 4.05 cm2 4.00-5.00 MV Diastolic Function MV E Peak Velocity 112.89 cm/s MV A Peak Velocity 2.78 cm/s MV E/A 40.56 MV Decel Time 0 s MV Annular TDI MV E/e' (Septal) 20.55 <=8.00 MV E/e' (Lateral) 14.58 <=8.00 MV E/e' (Average) 17.56 Tricuspid Valve Name Value Normal TV Regurgitation Doppler TR Peak Velocity 331.96 cm/s TR Peak Gradient 44 mmHg Estimated PAP/RSVP RA Pressure 10 mmHg <=5 PA Systolic Pressure 54 mmHg <36 RV Systolic Pressure 54 mmHg <36 Aortic Valve Name Value Normal AV Doppler AV Peak Velocity 137.63 cm/s AV Peak Gradient 8 mmHg AV Mean Gradient 5 mmHg AV VTI 27.29 cm Ventricles Name Value Normal LV Dimensions 2D/MM IVS Diastolic Thickness (2D) 1.45 cm 0.60-1.00 LVID Diastole (2D) 4.79 cm 3.80-5.20 LVIW Diastolic Thickness (2D) 1.47 cm 0.60-0.90 LVID Systole (2D) 3.48 cm 2.20-3.50 LV Mass (2D Cubed) 290.76 g 67.00-162.00 LV Mass Index (2D Cubed) 0.01 g/cm2 0.00-0.01 Relative Wall Thickness (2D) 0.61 LV Fractional Shortening/Ejection Fraction 2D/MM LV Fractional Shortening (2D) 27 % 27-45 LV EF (2D Teicholz) 53 % 54-74 LV Diastolic Volume (4C MOD) 91.63 ml LV EF (4C MOD) 59 % LV Diastolic Volume (2C MOD) 123.40 ml LV EF (2C MOD) 64 % LV Diastolic Volume (BP MOD) 107.52 ml 46.00-106.00 LV Diastolic Volume Index (BP MOD) 0.05 l/m2 0.03-0.06 LV Systolic Volume (BP MOD) 40.90 ml 14.00-42.00 LV Systolic Volume Index (BP MOD) 0.02 l/m2 0.01-0.02 LV EF (BP MOD) 62 % 54-74 LV Diastolic Length (4C) 7.36 cm LV Systolic Length (4C) 5.92 cm LV Stroke Volume (4C MOD) 54.14 ml Atria Name Value Normal LA Dimensions LA Volume (4C A-L) 80.36 ml LA Volume (BP A-L) 72.31 ml RA Dimensions RA Area (4C) 22.63 cm2 <=18.00 Report Signatures
[2024-09-20 01:58] LABS: Troponin I 0.039 ng/mL (0.000-0.034)
[2024-09-20] MEDS: HYDROcodone/acetaminophen (*CRX) 10-325 MG TABLET 1 TAB PO ×3 (03:59→17:28)
[2024-09-20] MEDS: LEVOTHYROXINE SODIUM 112 MCG TABLET PO (06:07)
[2024-09-20 06:25] LABS: Hemoglobin 11.4 g/dL (12.0-15.0); Mean Corpuscular HGB Conc 30.8 g/dl (32-36); Mean Corpuscular Hemoglobin 32.4 pg (26-34); Mean Corpuscular Volume 105.1 fl (80-100); Mean Platelet Volume 9.6 fl (7.4-10.4); Platelet Count Result 284 k/mm3 (150-375); Red Blood Count 3.52 M/mm3 (4.2-5.4); Red Cell Distribution Width 14.5 % (11.5-14.5); White Blood Count 6.6 K/mm3 (4.5-10.0)
[2024-09-20 06:42] LABS: Anion Gap 6 mmol/L (4-12); Blood Urea Nitrogen 19 mg/dL (7-17); Carbon Dioxide 25 mmol/L (22-30); Chloride 107 mmol/L (98-107); Estimated CRCL calculation 72 ml/min; Estimated Glomerular Filt Rate > 60; Glucose 115 mg/dL (65-110); Magnesium 2.5 mg/dL (1.6-2.3); Potassium 5.3 mmol/L (3.4-5.0); Sodium 138 mmol/L (137-145)
--- NOTE | 2024-09-20 07:29 | ECG_ITS ---
Test Date: 2024-09-20 08:33:44 Measurements Intervals Kersey Rate: 82 P: 0 LA: 0 QRS: 108 QRSD: 125 T: 9 QT: 382 QTc: 448 Interpretive Statements ATRIAL FIBRILLATION RIGHT BUNDLE BRANCH BLOCK CONSIDER ANTERIOR INFARCT, AGE INDETERMINATE BASELINE ARTIFACT- I, II, III, AVR, AVL, AVF, V5 ABNORMAL ECG Compared to ECG 09/19/2024 23:41:20 NO SIGNIFICANT CHANGE Electronically Signed On 09-20-2024 09:49:19 PLANNER by Derian Tineo D.O.
[2024-09-20] MEDS: NITROGLYCERIN SL 0.4 MG TABLET SUBLINGUAL (07:43)
[2024-09-20 08:28] LABS: Alveolar/Arterial O2 Gradient 115.1 mmHg; Base Excess ABG -1.5 mEq/l (+/-2.0); Fractional Inspired Oxygen 36 %; HCO3 ABG 24.3 mEq/l (22.0-26.0); Oxygen Content ABG 16.3 %vol (16.0-22.0); Oxygen Saturation ABG 96.3 % (95.0-100.0); Oxyhemoglobin 95.9 % THb (90.0-100.0); PCO2 ABG 45.5 mmHg (35.0-45.0); PO2 ABG 88.8 mmHg (80.0-100.0); PO2 FiO2 Ratio Arterial Blood 2.47 %; pH ABG 7.346 (7.350-7.450)
[2024-09-20 08:29] LABS: Device NASAL CANNULA; Modified Allen's Test Pass; Site Drawn LEFT RADIAL
[2024-09-20 08:41] LABS: Glucose Point of Care 110 mg/dl (65-105)
[2024-09-20 08:46] LABS: Troponin I 0.035 ng/mL (0.000-0.034)
[2024-09-20] MEDS: ALBUTEROL SULFATE NEB 2.5 MG/3 ML INH INHALATION ×4 (09:30→20:30)
--- NOTE | 2024-09-20 09:44 | PM.IMPN ---
Progress Note: A&P Assessment and Plan (1) CHF exacerbation: Code(s): I50.9 - Heart failure, unspecified Status: Acute Assessment and Plan: Patient presents with shortness of breath. She was 100% on her 4 L. Influenza, RSV and COVID PCR were negative. BNP 7300. D-dimer positive at 1.2. Troponin mildly elevated at 0.039. EKG showing AFib, RAD and Rt BBB. No change on repeat AB.35/40/94 on 4 L. Chest x-ray shows mild bibasilar pulmonary edema. CTA was negative for PE but does show patchy airspace opacities in the right lower lobe suspicious for aspiration and/or pneumonia. Suspect CHF exacerbation and/or pneumonia. Mildly elevated Trop related to CHF. Continue IV Lasix. Check LE doppler (2) Pneumonia: Qualifiers: Pneumonia type: aspiration pneumonia Aspiration pneumonia type: unspecified Laterality: bilateral Lung location: lower lobe of lung Qualified Code(s): J69.0 - Pneumonitis due to inhalation of food and vomit Code(s): J18.9 - Pneumonia, unspecified organism Status: Acute Assessment and Plan: Imaging as above. Patient having productive cough. White count normal. On Rocephin for UTI. Will add Flagyl and doxycycline. Check procalcitonin level, CRP and MRSA nasal swab. Check sputum culture. Check urine antigens. Speech to see (3) Macrocytic anemia: Code(s): D53.9 - Nutritional anemia, unspecified Status: Acute Assessment and Plan: Patient with chronic anemia in the past but more recently her hemoglobin was 13 in April. Hemoglobin 10.2 on admission with macrocytosis. Iron studies showed normal iron and TIBC with saturation of 12%. Ferritin normal at 67. B12 level low at 189 with a normal folate. TSH normal. Patient with B12 deficiency. Iron stores are low as well. Replaced B12. Will also replaced iron. Monitor H&H and transfuse as necessary. (4) Chronic atrial fibrillation: Code(s): I48.20 - Chronic atrial fibrillation, unspecified Status: Acute Assessment and Plan: Patient with chronic atrial fibrillation. Echocardiogram in March 2022 showed EF of 72%, moderate pulmonary hypertension and mild valvular disease. She is not on Eliquis despite high chads 2 Vasc score of at least 6. Resume Eliquis. Discussed with care coordination about ways for her to afford this medication. Spoke to her about Coumadin but she refuses Coumadin. (5) Chronic obstructive pulmonary disease: Code(s): J44.9 - Chronic obstructive pulmonary disease, unspecified Status: Acute Assessment and Plan: Patient was wheezing earlier but improved after breathing treatment. Continue bronchodilators. Resume inhalers. (6) Bacteriuria with pyuria: Code(s): R82.71 - Bacteriuria; R82.81 - Pyuria Status: Acute Assessment and Plan: UA is concerning for UTI. UCx collected. Rocephin started. UCx pending. Follow up on UCx results. (7) Chronic respiratory failure with hypoxia: Code(s): J96.11 - Chronic respiratory failure with hypoxia Status: Acute Assessment and Plan: Patient is on 4 L at rest, with exertion and at night. Patient at baseline 4 L. Follow (8) Hypertension: Qualifiers: Hypertension type: essential hypertension Qualified Code(s): I10 - Essential (primary) hypertension Code(s): I10 - Essential (primary) hypertension Status: Acute Assessment and Plan: Patient's blood pressure was reviewed on 09/20 Blood pressure poorly controlled. Home medications have been resumed. Potassium high so will hold spironolactone. Will continue to monitor for now. (9) Hypothyroidism (acquired): Code(s): E03.9 - Hypothyroidism, unspecified Status: Acute Assessment and Plan: TSH normal. Continue levothyroxine. (10) Type 2 diabetes mellitus: Code(s): E11.9 - Type 2 diabetes mellitus without complications Status: Acute Assessment and Plan: A1c 5.4%. The patient's blood glucose was reviewed on 09/20 Glucose remains well controlled. Continue AccuCheks covering with sliding scale. Hypoglycemia protocol available as needed. Continue to monitor (11) Obstructive sleep apnea: Code(s): G47.33 - Obstructive sleep apnea (adult) (pediatric) Status: Acute Assessment and Plan: Patient states she is compliant with BiPAP at night. Resume auto BiPAP Plan DVT prophylaxis -Eliquis Code status -full Subjective Date/time seen: 09/20/24 09:44 Interval history: 79yo female with chronic respiratory failure on home oxygen, ALBERTO, COPD, pulmHTN, CHF, and cAFib who presented to the ED via EMS from home for evaluation of shortness of breath. Patient has been out of her Eliquis since she can not afford this. She has been compliant with her other home medications. She had worsening SOB and was moved to IMU. She has been having cough productive of green/brown sputum. No odnyphagia or dysphagia. She is compliant with bipap at home; wear 4L bleed-in. She wears 4L O2 at home while awake (she uses 3L when out of the house only because her machine gets depleted too fast if she uses 4L). No palpatations. Has left sided sharp chest pain brought on by coughing. No palpable pain. Nausea but no vomiting. Last BM yesteday. Exam Narrative: AF 98.0 179/96 100 24 100% 4L Gen - NARD Chest - bibasilar inspiratory crackles, mild increased RR and conversational dyspnea CV -he regularly irregular. Telemetry showing atrial fibrillation with controlled rate Abd -soft. Obese. Diffusely tender. Positive bowel sounds. Ext -trace pedal edema. Psych - Nml mood and affect Skin - Warm and dry Objective Data Vital Signs Vital Signs: Vital Signs - 24 hr 09/19/24 10:21 09/19/24 10:57 09/19/24 11:26 Temperature Pulse Rate 97 101 H Respiratory Rate 25 H 24 H 21 H Blood Pressure 161/73 H Pulse Oximetry 98 100 Oxygen Delivery Oxygen Flow Rate Fraction of Inspired Oxygen 09/19/24 11:30 09/19/24 11:32 09/19/24 11:45 Temperature Pulse Rate 97 101 H 104 H Respiratory Rate 21 H 21 H 26 H Blood Pressure 161/72 H Pulse Oximetry 100 99 98 Oxygen Delivery Oxygen Flow Rate Fraction of Inspired Oxygen 09/19/24 12:00 09/19/24 12:16 09/19/24 12:34 Temperature Pulse Rate 99 111 H Respiratory Rate 12 25 H Blood Pressure Pulse Oximetry 98 Oxygen Delivery Oxygen Flow Rate Fraction of Inspired Oxygen 09/19/24 12:46 09/19/24 13:00 09/19/24 13:15 Temperature Pulse Rate 101 H 97 104 H Respiratory Rate 18 15 21 H Blood Pressure Pulse Oximetry 99 97 Oxygen Delivery Oxygen Flow Rate Fraction of Inspired Oxygen 09/19/24 13:36 09/19/24 13:45 09/19/24 15:13 Temperature Pulse Rate 102 H 97 97 Respiratory Rate 20 21 H 21 H Blood Pressure 144/90 H Pulse Oximetry 96 96 Oxygen Delivery Nasal Cannula Oxygen Flow Rate 4 Fraction of Inspired Oxygen 09/19/24 17:10 09/19/24 17:30 09/19/24 17:37 Temperature Pulse Rate 102 H 106 H Respiratory Rate 24 H 24 H Blood Pressure Pulse Oximetry 96 Oxygen Delivery Nasal Cannula Oxygen Flow Rate 4 Fraction of Inspired Oxygen 09/19/24 20:32 09/19/24 21:55 09/19/24 22:17 Temperature 97.8 F Pulse Rate 90 69 88 Respiratory Rate 22 H 26 H Blood Pressure 159/88 H Pulse Oximetry 96 97 Oxygen Delivery Autopap Oxygen Flow Rate Fraction of Inspired Oxygen 09/19/24 23:23 09/20/24 00:00 09/20/24 02:22 Temperature 96.3 F L 97.0 F L Pulse Rate 87 67 101 H Respiratory Rate 24 H 22 H Blood Pressure 185/105 H 171/98 H Pulse Oximetry 98 100 98 Oxygen Delivery Autopap Oxygen Flow Rate Fraction of Inspired Oxygen 09/20/24 04:00 09/20/24 00:00 09/20/24 04:00 Temperature 98.1 F Pulse Rate 83 77 103 H Respiratory Rate 22 H Blood Pressure 162/79 H Pulse Oximetry 100 Oxygen Delivery Oxygen Flow Rate Fraction of Inspired Oxygen 09/20/24 08:01 09/20/24 08:59 09/20/24 09:30 Temperature 98.0 F Pulse Rate 85 Respiratory Rate 24 H Blood Pressure 164/108 H 179/96 H Pulse Oximetry 100 100 Oxygen Delivery Nasal Cannula Oxygen Flow Rate 4 Fraction of Inspired Oxygen 36 09/20/24 09:30 09/20/24 09:40 Temperature Pulse Rate 90 100 Respiratory Rate 22 H 24 H Blood Pressure Pulse Oximetry Oxygen Delivery Oxygen Flow Rate Fraction of Inspired Oxygen Intake/Output Intake/Output: Intake & Output 09/17/24 09/18/24 09/19/24 09/20/24 23:59 23:59 23:59 23:59 Intake Total 1000 440 Output Total 60 1600 Balance 940 -1160 Meds/Results Medications: Active Medications Generic Name Dose Route Start Last Admin Trade Name Freq PRN Reason Stop Dose Admin Acetaminophen 650 mg 09/19/24 22:21 Acetaminophen 325 Mg Tablet PO Q6H PRN Mild Pain (1-3) or Fever Hydrocodone Bitart/Acetaminophen 1 tab 09/19/24 16:27 09/20/24 03:59 Hydrocodone/Acetaminophen (*Crx) 10-325 Mg Tablet PO 1 tab Q6H PRN Administration Pain Rated 4-6 Albuterol 2.5 mg 09/19/24 16:27 09/20/24 09:30 Albuterol Sulfate Neb 2.5 Mg/3 Ml Inh INHALATION 2.5 mg QID PRN Administration shortness of breath or wheezing Albuterol 1 - 2 puff 09/19/24 16:27 Albuterol Sulfate (*Sp) Aerosol 1 Puff INHALATION Q4-6H PRN Shortness Of Breath Alprazolam 0.5 mg 09/19/24 21:00 09/19/24 20:32 Alprazolam (*Crx) 0.5 Mg Tablet PO 0.5 mg Q12HR ERICKSON Administration Aspirin 81 mg 09/20/24 09:00 Aspirin 81 Mg Enteric Tablet PO QAM ERICKSON Atorvastatin Calcium 20 mg 09/19/24 21:00 09/19/24 20:31 Atorvastatin 20 Mg Tablet PO 20 mg QHS ERICKSON Administration Carvedilol 6.25 mg 09/19/24 21:00 09/19/24 20:32 Carvedilol 6.25 Mg Tablet PO 6.25 mg Q12HR ERICKSON Administration Dextrose 12.5 gm 09/19/24 22:21 Dextrose 50% 25 Gm/50 Ml Syringe IV PUSH PRN PRN Hypoglycemia Protocol Enoxaparin Sodium 40 mg 09/20/24 09:00 Enoxaparin 40 Mg/0.4 Ml Syringe SUB-Q DAILY ERICKSON Erythromycin 1 applic 09/20/24 22:30 Erythromycin Ophth Ointment 1 Gm Tube EACH EYE 09/27/24 22:29 Q4HWA ERICKSON Furosemide 40 mg 09/19/24 17:00 09/19/24 17:04 Furosemide Inj 40 Mg/4 Ml Vial IV PUSH 40 mg BID ERICKSON Administration Glucagon 1 mg 09/19/24 22:21 Glucagon For Inj 1 Mg Vial IM PRN PRN Hypoglycemia Protocol Glucose 15 gm 09/19/24 22:21 Glucose Oral Gel 15 Gm Of Glucse In 37.5 Gm Tube PO PRN PRN Hypoglycemia Protocol Hydralazine HCl 10 mg 09/19/24 17:00 09/19/24 17:04 Hydralazine 10 Mg Tablet PO 10 mg BID ERICKSON Administration Ceftriaxone Sodium 1 gm in 50 mls @ 100 mls/hr 09/20/24 09:00 Rocephin 1 Gm/Ns 50 Ml IVPB Q24H ERICKSON Dextrose 1,000 mls @ 100 mls/hr 09/19/24 22:21 Dextrose 5% 1,000 Ml IVPB PRN PRN Hypoglycemia Protocol Insulin Aspart 3 - 6 units 09/20/24 08:00 09/20/24 09:23 Insulin Aspart (*Bkc) 100 Units/Ml SUB-Q Not Given TIDWM [facility] Protocol Insulin Aspart 1 - 3 units 09/20/24 21:00 Insulin Aspart (*Bkc) 100 Units/Ml SUB-Q HS [facility] Protocol Levothyroxine Sodium 112 mcg 09/20/24 06:30 09/20/24 06:07 Levothyroxine Sodium 112 Mcg Tablet PO 112 mcg DAILY@0630 ERICKSON Administration Losartan Potassium 100 mg 09/20/24 09:00 Losartan Potassium 100 Mg Tablet PO DAILY [facility] Miscellaneous Information 0 each 09/19/24 00:01 Albuterol Nebs And Hfa Both Ordered - Please Specify When To Use Each Or Discontinue One XX 10/19/24 00:00 CLARIFY [facility] Nitroglycerin 0.4 mg 09/19/24 23:36 09/20/24 07:43 Nitroglycerin Sl 0.4 Mg Tablet SUBLINGUAL 0.4 mg Q5MIN PRN Administration Chest Pain Pantoprazole Sodium 40 mg 09/20/24 09:00 Pantoprazole 40 Mg Tablet PO DAILY [facility] Spironolactone 25 mg 09/20/24 09:00 Spironolactone 25 Mg Tablet PO DAILY [facility] Radiology Results: ITS Impressions Chest X-Ray 09/19/24 10:09 Impression: Probable mild bibasilar pulmonary edema and central congestive change. Chest CTA 09/20/24 08:07 IMPRESSION: 1. No pulmonary collision. 2. Patchy airspace opacities in the right lower lobe which suspicious for aspiration and/or pneumonia. 3. Mild emphysema. 4. Very small right pleural effusion. 5. Cardiomegaly. 6. Enlargement of the central pulmonary arteries consistent with pulmonary arterial hypertension. 7. Small sliding-type hiatal hernia with change of Michelle-en-Y gastric bypass procedure. Labs Labs: Laboratory Results - last 24 hr 09/19/24 09/19/24 09/19/24 08:38 09:36 12:03 WBC RBC Hgb Hct MCV MCH MCHC RDW Plt Count MPV D-Dimer Puncture Site Right brachial ABG pH 7.347 L ABG pCO2 40.4 ABG pO2 94.5 ABG PO2/FiO2 Ratio 2.63 ABG HCO3 21.7 L ABG O2 Saturation 96.9 ABG O2 Content 15.4 L ABG Base Excess -3.7 A-a Gradient 115.3 Oxyhemoglobin 96.4 Total Hemoglobin 11.3 L O2 Delivery Device Nasal cannula O2 Liters/Min 4.0 FiO2 36 Sodium Potassium Chloride Carbon Dioxide Anion Gap BUN Creatinine Estim Creat Clear Calc Estimated GFR Glucose POC Capillary Glucose Hemoglobin A1c 5.4 Calcium Magnesium Iron TIBC % Saturation Ferritin Troponin I 0.012 Vitamin B12 Folate TSH (Reflex) 09/19/24 09/19/24 09/19/24 16:41 19:32 19:33 WBC RBC Hgb Hct MCV MCH MCHC RDW Plt Count MPV D-Dimer 1.23 H Puncture Site ABG pH ABG pCO2 ABG pO2 ABG PO2/FiO2 Ratio ABG HCO3 ABG O2 Saturation ABG O2 Content ABG Base Excess A-a Gradient Oxyhemoglobin Total Hemoglobin O2 Delivery Device O2 Liters/Min FiO2 Sodium Potassium Chloride Carbon Dioxide Anion Gap BUN Creatinine Estim Creat Clear Calc Estimated GFR Glucose POC Capillary Glucose Hemoglobin A1c Calcium Magnesium Iron 43 TIBC 371 % Saturation 12 L Ferritin 67.50 Troponin I 0.014 0.025 D Vitamin B12 189.0 L Folate 11.3 TSH (Reflex) 0.687 09/19/24 09/20/24 09/20/24 22:33 01:32 05:38 WBC 6.6 RBC 3.52 L Hgb 11.4 L Hct 37.0 MCV 105.1 H MCH 32.4 MCHC 30.8 L RDW 14.5 Plt Count 284 MPV 9.6 D-Dimer Puncture Site ABG pH ABG pCO2 ABG pO2 ABG PO2/FiO2 Ratio ABG HCO3 ABG O2 Saturation ABG O2 Content ABG Base Excess A-a Gradient Oxyhemoglobin Total Hemoglobin O2 Delivery Device O2 Liters/Min FiO2 Sodium 138 Potassium 5.3 H Chloride 107 Carbon Dioxide 25 Anion Gap 6 BUN 19 H Creatinine 0.70 Estim Creat Clear Calc 72 Estimated GFR > 60 Glucose 115 H POC Capillary Glucose Hemoglobin A1c Calcium 9.0 Magnesium 2.5 H Iron TIBC % Saturation Ferritin Troponin I 0.035 H* D 0.039 H* Vitamin B12 Folate TSH (Reflex) 09/20/24 09/20/24 09/20/24 07:58 08:24 08:38 WBC RBC Hgb Hct MCV MCH MCHC RDW Plt Count MPV D-Dimer Puncture Site Left radial ABG pH 7.346 L ABG pCO2 45.5 H ABG pO2 88.8 ABG PO2/FiO2 Ratio 2.47 ABG HCO3 24.3 ABG O2 Saturation 96.3 ABG O2 Content 16.3 ABG Base Excess -1.5 A-a Gradient 115.1 Oxyhemoglobin 95.9 Total Hemoglobin 12.0 O2 Delivery Device Nasal cannula O2 Liters/Min 4.0 FiO2 36 Sodium Potassium Chloride Carbon Dioxide Anion Gap BUN Creatinine Estim Creat Clear Calc Estimated GFR Glucose POC Capillary Glucose 110 H Hemoglobin A1c Calcium Magnesium Iron TIBC % Saturation Ferritin Troponin I 0.035 H* Vitamin B12 Folate TSH (Reflex)
--- NOTE | 2024-09-20 09:48 | PC.NURSE ---
This patient, Cheyenne Sawyer, was transferred to [facility] on 09/20/24 at 0828. Personal belongings sent with patient. Report given to ELSIE Rivera. Appropriate documentation sent with patient.
[2024-09-20] MEDS: [UNRECOGNIZED DRUG - REMARK] XX ×2 (10:33→10:34)
[2024-09-20] MEDS: DOXYCYCLINE HYCLATE 100 MG TABLET PO ×2 (11:17→21:34)
[2024-09-20] MEDS: PANTOPRAZOLE 40 MG TABLET PO (11:17)
[2024-09-20] MEDS: LOSARTAN POTASSIUM 100 MG TABLET PO (11:17)
[2024-09-20] MEDS: APIXABAN 5 MG TABLET PO (11:17)
[2024-09-20] MEDS: ASPIRIN 81 MG ENTERIC TABLET PO (11:17)
[2024-09-20] MEDS: ALPRAZolam (*CRX) 0.5 MG TABLET PO ×2 (11:17→21:34)
[2024-09-20] MEDS: carvediloL 6.25 MG TABLET PO ×2 (11:20→21:33)
[2024-09-20] MEDS: hydrALAZINE 10 MG TABLET PO ×2 (11:20→17:25)
[2024-09-20] MEDS: CYANOCOBALAMIN INJ 1,000 MCG/ML VIAL 1000 MCG IM (11:21)
[2024-09-20] MEDS: FUROSEMIDE INJ 40 MG/4 ML VIAL IV PUSH ×2 (11:21→17:25)
[2024-09-20 12:14] LABS: Glucose Point of Care 108 mg/dl (65-105)
[2024-09-20 12:16] LABS: Anion Gap 8 mmol/L (4-12); Blood Urea Nitrogen 20 mg/dL (7-17); CRP 1.7 mg/dL (<1.0); Calcium 9.1 mg/dL (8.4-10.2); Carbon Dioxide 26 mmol/L (22-30); Chloride 105 mmol/L (98-107); Estimated CRCL calculation 82 ml/min; Estimated Glomerular Filt Rate > 60; Glucose 112 mg/dL (65-110); Potassium 5.2 mmol/L (3.4-5.0); Sodium 139 mmol/L (137-145)
[2024-09-20 12:22] LABS: MRSA (PCR) DETECTED (NOT DETECTE)
--- NOTE | 2024-09-20 12:24 | P.CONCA_ITS ---
Assessment and Plan Assessment and plan (1) CHF exacerbation: Code(s): I50.9 - Heart failure, unspecified Status: Acute Assessment and Plan: Patient presents with shortness of breath. She was 100% on her 4 L. (2) Chronic atrial fibrillation: Code(s): I48.20 - Chronic atrial fibrillation, unspecified Status: Acute Plan 1. COPD exacerbation 2. Diastolic heart failure 3. Type 2 TN 4. Chronic atrial fibrillation BNP 7300. D-dimer positive at 1.2. Troponin mildly elevated at 0.039. EKG showing AFib, RAD and Rt BBB. No change on repeat AB.35/40/94 on 4 L. Chest x-ray shows mild bibasilar pulmonary edema. CTA was negative for PE but does show patchy airspace opacities in the right lower lobe suspicious for aspiration and/or pneumonia. -continue aspirin, statin -no need for invasive evaluation for now. She most likely has underlying obstructive CAD and will discuss stress test as an outpatient -will start on low-dose oral diuretics -Dr. Lambert are already discussed anticoagulation with her and started on to work. Had agree with initiation of O2 at -monitor blood pressure may need optimization with the blood pressure is still high after stabilization History of Present Illness History of Present Illness Consult date/time: 09/20/24 12:24 Reason For Visit: Dyspnea Narrative: This is a 76-year-old female with multiple medical problems including chronic respiratory failure on oxygen, obstructive sleep apnea, COPD, congestive heart failure, atrial fibrillation not on AC, and anxiety who was admitted with COPD exacerbation, CHF. Cardia cardiology consulted for elevated troponin, AFib and CHF [facility] came in because she developed sudden-onset shortness of breath. She has had similar episodes of COPD exacerbation in the past and has been admitted with them. She uses supplemental oxygen at home. She also does have chronic stable dyspnea She did endorse chest pain which was reproducible EKG showed AFib with right bundle-branch Echo done in 2021 showed a EF of 72% Myocardial perfusion scan done at the same time showed large, moderate intensity fixed defect involving the apical anterior basal to mid anterolateral wall Troponins have been flat Currently the time of my evaluation she feels better in terms of her dyspnea. She still has that reproducible chest pain Review of Systems Review of Systems: 12 systems were reviewed and are negativ e except for as per HPI. [facility] Past Medical History Medical History (Updated 09/20/24 @ 10:04 by Cuong Stone MD) Anxiety Arthritis Asthma Benign colon polyp Benign essential tremor Chronic anemia Chronic anticoagulation Chronic atrial fibrillation Chronic diastolic congestive heart failure Chronic obstructive pulmonary disease Chronic pain syndrome Due to chronic back and neck pain. She is on long-term opiate therapy. Chronic respiratory failure with hypoxia, on home oxygen therapy Depression Diabetic polyneuropathy associated with type 2 diabetes mellitus Emphysema lung Fibromyalgia Gastroesophageal reflux disease Heart failure with preserved ejection fraction History of tobacco use Hypertension Inguinal hernia Obstructive sleep apnea Osteoporosis Peripheral neuropathy Seasonal allergies Severe pulmonary arterial systolic hypertension RVSP of 63 millimeters of mercury on echocardiogram in June 2019. Takotsubo cardiomyopathy In May 2019 with ejection fraction as low as 25 to 30%. EF improved to 65% on echo in June 2019. Type 2 diabetes mellitus with autonomic neuropathy Uterine cancer Surgical History Surgical History History of 2 sections History of cardiac cath History of cholecystectomy History of dilatation and curettage History of exploratory laparotomy With adhesiolysis. History of gastric bypass History of incisional hernia repair History of right knee joint replacement History of surgical removal of ganglion cyst History of total abdominal hysterectomy and bilateral salpingo-oophorectomy For uterine cancer. History of tubal ligation Family History Family History Mother Family history of heart disease in male family member before age 55 Diabetes mellitus Patient's mother is Family history of chronic obstructive pulmonary disease Father Family history of arthritis Patient's father is Family history of emphysema Family history of lung disease Sibling Family history of malignant neoplasm of ovary Family history of malignant neoplasm Patient's sister is Patient's sister is in good health Family history of malignant neoplasm of uterus Grandparent Diabetes mellitus Other Family history of cardiovascular disease Family history of osteoarthritis Hypertension Social History Social History Social History: . Lives alone but has family close by. Smoked up to 2 packs of cigarettes per day for 40 years and quit in 2000. No alcohol or drug abuse. She designates her daughter, Carmita Day, as her surrogate decision maker. Code status: Full code. Smoking packs per day: 3 Smoking cigarettes per day: 60.0 Years smoked: 30 Smoking pack-years: 90.00 Smoking status: Former smoker Tobacco type: cigarettes Second hand tobacco smoke exposure: No Alcohol intake: never Substance use: current Substance use type: opiates Do You Feel Safe in your Home?: Yes Lack of Transportation: No Lack of Food: Never True Current Housing: I Have Housing Concerned About Future Housing: No Difficulty Paying Gas/Electric Bills: No Difficulty Paying for Meds: No Currently Unemployed: YES Education: Don't Know Difficulty w/ Childcare or Family Care: No Living arrangements: alone Occupation/Education: retired Spiritual care concerns: No Meds Home Medications and Allergies Home Medications Medication Instructions Recorded Confirmed Type hydrocodone 10 mg-acetaminophen 1 tablet PO Q6H PRN Pain 05/26/20 09/19/24 History 325 mg tablet albuterol sulfate 2.5 mg/3 mL 2.5 mg (3 mL) inhalation QID PRN 04/03/23 09/19/24 Rx (0.083 %) solution for nebulization shortness of breath or wheezing #360 mL atorvastatin 20 mg tablet 20 mg PO QHS #90 tabs 07/05/23 09/19/24 Rx albuterol sulfate 90 mcg/actuation 1 - 2 puff inhalation Q4-6H PRN 05/26/24 09/19/24 Rx aerosol inhaler Shortness Of Breath #8.5 grams levothyroxine 112 mcg tablet 112 mcg PO DAILY #30 tabs 08/11/24 09/19/24 Rx alprazolam 0.5 mg tablet 0.5 mg PO BID #60 tabs 09/12/24 09/19/24 Rx budesonide-formoterol HFA 80 See Rx Instructions .Route 09/15/24 09/19/24 Rx mcg-4.5 mcg/actuation aerosol .COMPLEX #10.2 grams inhaler (Symbicort) carvedilol 6.25 mg tablet 6.25 mg PO BID 09/19/24 09/19/24 History furosemide 40 mg tablet 40 mg PO DAILY 09/19/24 09/19/24 History hydralazine 10 mg tablet 10 mg PO BID 09/19/24 09/19/24 History losartan 100 mg tablet 100 mg PO DAILY 09/19/24 09/19/24 History pantoprazole 40 mg tablet,delayed 40 mg PO DAILY 09/19/24 09/19/24 History release potassium chloride 20 mEq 20 meq PO DAILY 09/19/24 09/19/24 History tablet,extended release spironolactone 25 mg tablet 25 mg PO DAILY 09/19/24 09/19/24 History Allergies Allergy/AdvReac Type Severity Reaction Status Date / Time quetiapine [From Seroquel] Allergy Intermediate Confusion Verified 09/19/24 15:57 Vital Signs Vital Signs - 24 hr 09/19/24 12:34 09/19/24 12:46 09/19/24 13:00 Temperature Pulse Rate 111 H 101 H 97 Respiratory Rate 25 H 18 15 Blood Pressure Pulse Oximetry 99 97 Oxygen Delivery Oxygen Flow Rate Fraction of Inspired Oxygen 09/19/24 13:15 09/19/24 13:36 09/19/24 13:45 Temperature Pulse Rate 104 H 102 H 97 Respiratory Rate 21 H 20 21 H Blood Pressure 144/90 H Pulse Oximetry 96 Oxygen Delivery Oxygen Flow Rate Fraction of Inspired Oxygen 09/19/24 15:13 09/19/24 17:10 09/19/24 17:30 Temperature Pulse Rate 97 102 H Respiratory Rate 21 H 24 H Blood Pressure Pulse Oximetry 96 96 Oxygen Delivery Nasal Cannula Nasal Cannula Oxygen Flow Rate 4 4 Fraction of Inspired Oxygen 09/19/24 17:37 09/19/24 20:32 09/19/24 21:55 Temperature 36.6 C Pulse Rate 106 H 90 69 Respiratory Rate 24 H 22 H Blood Pressure 159/88 H Pulse Oximetry 96 Oxygen Delivery Oxygen Flow Rate Fraction of Inspired Oxygen 09/19/24 22:17 09/19/24 23:23 09/20/24 00:00 Temperature 35.7 C L 36.1 C L Pulse Rate 88 87 67 Respiratory Rate 26 H 24 H Blood Pressure 185/105 H 171/98 H Pulse Oximetry 97 98 100 Oxygen Delivery Autopap Oxygen Flow Rate Fraction of Inspired Oxygen 09/20/24 02:22 09/20/24 04:00 09/20/24 00:00 Temperature 36.7 C Pulse Rate 101 H 83 77 Respiratory Rate 22 H 22 H Blood Pressure 162/79 H Pulse Oximetry 98 100 Oxygen Delivery Autopap Oxygen Flow Rate Fraction of Inspired Oxygen 09/20/24 04:00 09/20/24 08:01 09/20/24 08:59 Temperature 36.7 C Pulse Rate 103 H 85 Respiratory Rate 24 H Blood Pressure 164/108 H 179/96 H Pulse Oximetry 100 Oxygen Delivery Oxygen Flow Rate Fraction of Inspired Oxygen 09/20/24 09:30 09/20/24 09:30 09/20/24 09:40 Temperature Pulse Rate 90 100 Respiratory Rate 22 H 24 H Blood Pressure Pulse Oximetry 100 Oxygen Delivery Nasal Cannula Oxygen Flow Rate 4 Fraction of Inspired Oxygen 36 09/20/24 08:00 09/20/24 10:00 09/20/24 11:20 Temperature Pulse Rate 88 71 89 Respiratory Rate Blood Pressure Pulse Oximetry Oxygen Delivery Oxygen Flow Rate Fraction of Inspired Oxygen 09/20/24 11:58 Temperature 36.8 C Pulse Rate 83 Respiratory Rate 24 H Blood Pressure 151/102 H Pulse Oximetry 99 Oxygen Delivery Oxygen Flow Rate Fraction of Inspired Oxygen Exam Narrative: AF 98.0 179/96 100 24 100% 4L Gen - NARD Chest - bibasilar inspiratory crackles, mild increased RR and conversational dy spnea CV -he regularly irregular. Telemetry showing atrial fibrillation with controlled rate Abd -soft. Obese. Diffusely tender. Positive bowel sounds. Ext -trace pedal edema. Psych - Nml mood and affect Skin - Warm and dry Results Labs and Meds 09/20/24 05:38 09/20/24 11:58 Lab results: Cardiac Enzymes 09/19/24 09/19/24 09/19/24 Range/Units 12:03 16:41 19:33 Troponin I 0.012 0.014 0.025 D (0.000-0.034) ng/mL 09/19/24 09/20/24 09/20/24 Range/Units 22:33 01:32 07:58 Troponin I 0.035 H* D 0.039 H* 0.035 H* (0.000-0.034) ng/mL CBC 09/20/24 Range/Units 05:38 WBC 6.6 (4.5-10.0) K/mm3 RBC 3.52 L (4.2-5.4) M/mm3 Hgb 11.4 L (12.0-15.0) g/dL Hct 37.0 (37.0-47.0) % Plt Count 284 (150-375) k/mm3 Comprehensive Metabolic Panel 09/20/24 09/20/24 Range/Units 05:38 11:58 Sodium 138 139 (137-145) mmol/L Potassium 5.3 H 5.2 H (3.4-5.0) mmol/L Chloride 107 105 (98-107) mmol/L Carbon Dioxide 25 26 (22-30) mmol/L BUN 19 H 20 H (7-17) mg/dL Creatinine 0.70 0.60 L (0.7-1.0) mg/dL Glucose 115 H 112 H (65-110) mg/dL Calcium 9.0 9.1 (8.4-10.2) mg/dL Intake and Output 09/19/24 09/20/24 09/20/24 23:59 07:59 15:59 Intake Total 200 240 Output Total 1600 Balance -1400 240 Intake: Oral 200 240 Output: Urine 1600 Other: # Unmeasured Voids 2 Number of Bowel Movements Today 2 1 Patient Weight 09/20/24 23:59 Weight 110 kg
[2024-09-20 12:31] LABS: Procalcitonin 0.1 ng/mL
--- NOTE | 2024-09-20 13:15 | PCSTNOTE ---
Please refer to the Modified Barium Swallow Evaluation in the EMR.
--- NOTE | 2024-09-20 13:23 | PC.NURSE ---
Received patient from 3rd m/s at 0826. Patient alert and oriented with complaints of SOB. Lung sounds coarse with wheezing throughout lung tang. Denies chest pain at this time. EKG obtained showing a-fib with pulse rate in the 80's. Oxygen sat is 99% on 4L/NC. Dr. Stone shown the EKG as well as notified of troponin level of 0.035. Patient received a breathing treatment in which afterwards her wheezing improved along with her SOB. Patient up to [facility] with 1 assist without difficulty. Requesting her CPAP on to take a nap. CPAP placed on patient. Dr. Davis saw patient and stated her chest pain is not cardiac related. Patient had barium swallow test in which she passed without restrictions. Doppler done on both legs. Dr. Guillaume notified song writer of patient having a DVT in perineal vein in right calf. Left leg is clear. Notified Dr. Stone of results.
[2024-09-20] MEDS: PERFLUTREN LIPID MICROSPHERES 1.5 ML VIAL DILUTED TO 10 ML TOTAL VOLUME IV PUSH (14:20)
--- NOTE | 2024-09-20 14:43 | IVDEFINITY ---
Prior to administration of IV Definity the patient was educated on the risks and benefits of the imaging enhancing agent including potential adverse side effects. The patient verbalized understanding. Allergies were verified. No exclusion criteria were identified and at least one of the following inclusion criteria were met: 1) physician request, 2) patient technically difficult to image (per the [place] [employer] guidelines of two or more segments not discernable within the apical view), or 3) questionable left ventricular function. ?
[2024-09-20] MEDS: metroNIDAZOLE 500 MG TABLET PO ×2 (14:54→21:34)
[2024-09-20] MEDS: VANCOMYCIN 1,250 MG/NS 250 ML 1,250 MG/250 ML BAG 166.67 MG IVPB ×2 (14:59→17:29)
[2024-09-20 16:37] LABS: Glucose Point of Care 114 mg/dl (65-105)
[2024-09-20 18:39] LABS: Potassium 4.4 mmol/L (3.4-5.0)
[2024-09-20] MEDS: FLUTICASONE/SALMETEROL 45-21 MCG INHALER 1 PUFF 2 PUFF INHALATION (20:30)
[2024-09-20] MEDS: APIXABAN 5 MG TABLET 10 MG PO (21:33)
[2024-09-20] MEDS: ATORVASTATIN 20 MG TABLET PO (21:34)
[2024-09-20 22:10] LABS: Glucose Point of Care 95 mg/dl (65-105)
[2024-09-20] MEDS: ERYTHROMYCIN OPHTH OINTMENT 1 GM TUBE 1 APPLIC EACH EYE (22:17)
[2024-09-21] VITALS (22 sets, daily range): BP systolic 127–149; BP diastolic 57–85; PULSE 61–92; RESP 12–21; TEMP 36.4–36.9; O2SAT 95–100
[2024-09-21] MEDS: HYDROcodone/acetaminophen (*CRX) 10-325 MG TABLET 1 TAB PO ×4 (00:57→20:32)
[2024-09-21] MEDS: ACETAMINOPHEN 325 MG TABLET 650 MG PO (03:16)
[2024-09-21 05:08] LABS: Basophils Absolute Auto 0.1 K/mm3 (0.0-0.1); Basophils Percent Auto 0.8 % (0.2-1.2); Eosinophils Absolute Auto 0.2 K/mm3 (0-0.3); Eosinophils Percent Auto 3.7 % (0-4.4); Immature Granulocyte Absolute 0.02 K/mm3 (0.00-0.031); Immature Granulocyte Percent A 0.3 % (0-0.5); Lymphocytes Absolute Auto 1.12 K/mm3 (0.9-3.2); Lymphocytes Percent Auto 18.2 % (18.3-44.2); Mean Corpuscular HGB Conc 31.3 g/dl (32-36); Mean Corpuscular Hemoglobin 32.8 pg (26-34); Mean Corpuscular Volume 104.9 fl (80-100); Mean Platelet Volume 9.3 fl (7.4-10.4); Monocytes Absolute Auto 0.6 K/mm3 (0.1-0.6); Monocytes Percent Auto 9.6 % (2.6-8.5); Neutrophils Absolute Auto 4.1 K/mm3 (1.3-6.7); Neutrophils Percent Auto 67.4 % (45.5-73.1); Platelet Count Result 277 k/mm3 (150-375); Red Blood Count 3.05 M/mm3 (4.2-5.4); Red Cell Distribution Width 14.6 % (11.5-14.5); White Blood Count 6.1 K/mm3 (4.5-10.0)
[2024-09-21 05:29] LABS: Alanine Aminotransferase 27 U/L (6-35); Albumin Level 3.6 g/dL (3.5-5.1); Alkaline Phosphatase 111 U/L (38-126); Anion Gap 6 mmol/L (4-12); Aspartate Amino Transferase 35 U/L (14-36); Bilirubin,Total 0.4 mg/dL (0.2-1.3); Blood Urea Nitrogen 20 mg/dL (7-17); Calcium 8.4 mg/dL (8.4-10.2); Carbon Dioxide 28 mmol/L (22-30); Chloride 104 mmol/L (98-107); Estimated CRCL calculation 63 ml/min; Estimated Glomerular Filt Rate > 60; Glucose 90 mg/dL (65-110); Potassium 4.2 mmol/L (3.4-5.0); Sodium 138 mmol/L (137-145)
[2024-09-21] MEDS: ERYTHROMYCIN OPHTH OINTMENT 1 GM TUBE 1 APPLIC EACH EYE ×5 (06:04→21:17)
[2024-09-21] MEDS: metroNIDAZOLE 500 MG TABLET PO (06:04)
[2024-09-21] MEDS: VANCOMYCIN 1,500 MG/NS 500 ML 1,500 MG/500 ML BAG 250 MG IVPB (06:04)
[2024-09-21] MEDS: LEVOTHYROXINE SODIUM 112 MCG TABLET PO (06:04)
[2024-09-21 07:48] LABS: Glucose Point of Care 94 mg/dl (65-105)
[2024-09-21] MEDS: ALBUTEROL SULFATE NEB 2.5 MG/3 ML INH INHALATION ×3 (08:20→21:45)
[2024-09-21] MEDS: FLUTICASONE/SALMETEROL 45-21 MCG INHALER 1 PUFF 2 PUFF INHALATION ×2 (08:27→21:45)
[2024-09-21] MEDS: PANTOPRAZOLE 40 MG TABLET PO (09:18)
[2024-09-21] MEDS: LOSARTAN POTASSIUM 100 MG TABLET PO (09:18)
[2024-09-21] MEDS: hydrALAZINE 10 MG TABLET PO ×2 (09:18→16:47)
[2024-09-21] MEDS: FUROSEMIDE INJ 40 MG/4 ML VIAL IV PUSH ×2 (09:19→16:47)
[2024-09-21] MEDS: carvediloL 6.25 MG TABLET PO ×2 (09:19→20:32)
[2024-09-21] MEDS: DOXYCYCLINE HYCLATE 100 MG TABLET PO ×2 (09:19→20:32)
[2024-09-21] MEDS: FERROUS SULFATE 325 MG TABLET DR PO (09:19)
[2024-09-21] MEDS: CYANOCOBALAMIN 1,000 MCG TABLET 1000 MCG PO (09:19)
[2024-09-21] MEDS: CYANOCOBALAMIN INJ 1,000 MCG/ML VIAL 1000 MCG IM (09:19)
[2024-09-21] MEDS: APIXABAN 5 MG TABLET 10 MG PO ×2 (09:20→20:32)
[2024-09-21] MEDS: ALPRAZolam (*CRX) 0.5 MG TABLET PO ×2 (09:20→20:32)
[2024-09-21] MEDS: ASPIRIN 81 MG ENTERIC TABLET PO (09:20)
[2024-09-21 11:51] LABS: Glucose Point of Care 90 mg/dl (65-105)
--- NOTE | 2024-09-21 12:42 | P.PNIM_ITS ---
Progress Note: A&P Assessment and Plan (1) CHF exacerbation: Code(s): I50.9 - Heart failure, unspecified Status: Acute Assessment and Plan: Patient presents with shortness of breath. She was 100% on her 4 L. Influenza, RSV and COVID PCR were negative. BNP 7300. D-dimer positive at 1.2. Troponin mildly elevated at 0.039 -> 0.035. EKG showing AFib, RAD and Rt BBB. AB.35/40/94 on 4 L. Chest x-ray shows mild bibasilar pulmonary edema. CTA was negative for PE but does show patchy airspace opacities in the right lower lobe suspicious for aspiration and/or pneumonia. Doppler positive for Rt peroneal vein DVT. Echo showing EF 62%, Grade III diastolic dysfxn, RVE, mild pHTN (54mmHg) Suspect acute on chronic diastolic CHF exacerbation and possibly pneumonia. Mildly elevated Trop related to CHF. UOP 2900mL but even fluid balance. Continue IV Lasix. Eliquis started. Fluid restrict (2) Pneumonia: Qualifiers: Pneumonia type: aspiration pneumonia Aspiration pneumonia type: unspecified Laterality: bilateral Lung location: lower lobe of lung Qualified Code(s): J69.0 - Pneumonitis due to inhalation of food and vomit Code(s): J18.9 - Pneumonia, unspecified organism Status: Acute Assessment and Plan: Imaging as above. Patient having productive cough. White count normal. CRP 1.7. PCT 0.1. On Rocephin for UTI. Flagyl and doxycycline added. MRSA nasal swab positive. Sputum culture pending. Urine antigens pending. Speech eval showing no concerns. She did recommend Easy to chew Level 7 which was ordered. Since aspiration less likely, will stop Flagyl. De-escalate abx and change to oral (3) DVT (deep venous thrombosis): Code(s): I82.409 - Acute embolism and thrombosis of unspecified deep veins of unspecified lower extremity Status: Acute Assessment and Plan: Patient has ethan off her Eliquis prior to admission. Doppler showing below the knee DVT right peroneal veins. Resume Eliquis and start with therapeutic dosing for DVT (4) Macrocytic anemia: Code(s): D53.9 - Nutritional anemia, unspecified Status: Acute Assessment and Plan: Patient with chronic anemia in the past but more recently her hemoglobin was 13 in April. Hemoglobin 10.2 on admission with macrocytosis. Iron studies showed normal iron and TIBC with saturation of 12%. Ferritin normal at 67. B12 level low at 189 with a normal folate. TSH normal. Patient with B12 deficiency. Iron stores (Ferritin <100)are low as well. Replaced B12. Iron replacement as well. Hgb stable at 10 Monitor H&H and transfuse as necessary. (5) Chronic atrial fibrillation: Code(s): I48.20 - Chronic atrial fibrillation, unspecified Status: Acute Assessment and Plan: Patient with chronic atrial fibrillation. Echo as above. She is not on Eliquis despite high [id number] score of at least 6. Resumed Eliquis. Discussed with care coordination about ways for her to afford this medication. Spoke to her about Coumadin but she refuses Coumadin. (6) Chronic obstructive pulmonary disease: Code(s): J44.9 - Chronic obstructive pulmonary disease, unspecified Status: Acute Assessment and Plan: Patient was wheezing earlier but improved after breathing treatment. Continue bronchodilators. Continue Advair. (7) UTI (urinary tract infection): Qualifiers: Hematuria presence: without hematuria Urinary tract infection type: site unspecified Qualified Code(s): N39.0 - Urinary tract infection, site not specified Code(s): N39.0 - Urinary tract infection, site not specified Status: Acute Assessment and Plan: UA is concerning for UTI. UCx collected. Rocephin started. UCx EColi that is relatively sterling-sensitive. Changed to Augmentin to complete a course (8) Chronic respiratory failure with hypoxia: Code(s): J96.11 - Chronic respiratory failure with hypoxia Status: Acute Assessment and Plan: Patient is on 4 L at rest, with exertion and at night. She has a high SpO2 on 4L. Wean O2 as tolerated to keep SpO2>92%. Home O2 evaluation at discharge Follow (9) Hypertension: Qualifiers: Hypertension type: essential hypertension Qualified Code(s): I10 - Essential (primary) hypertension Code(s): I10 - Essential (primary) hypertension Status: Acute Assessment and Plan: Patient's blood pressure was reviewed on 09/21 Blood pressure was poorly controlled. Home medications were resumed. Potassium high so holding spironolactone. BP better overall Will continue to monitor for now. (10) Hypothyroidism (acquired): Code(s): E03.9 - Hypothyroidism, unspecified Status: Acute Assessment and Plan: TSH normal. Continue levothyroxine. (11) Type 2 diabetes mellitus: Code(s): E11.9 - Type 2 diabetes mellitus without complications Status: Acute Assessment and Plan: A1c 5.4%. The patient's blood glucose was reviewed on 09/21 Glucose remains well controlled. Continue AccuCheks covering with sliding scale. Hypoglycemia protocol available as needed. Continue to monitor (12) Obstructive sleep apnea: Code(s): G47.33 - Obstructive sleep apnea (adult) (pediatric) Status: Acute Assessment and Plan: Patient states she is compliant with BiPAP at night. Continue auto BiPAP Plan DVT prophylaxis -Elbaquis Code status -full Subjective Date/time seen: 09/21/24 12:42 Interval history: 79yo female with chronic respiratory failure on home oxygen, ALBERTO, COPD, pulmHTN, CHF, and cAFib who presented to the ED via EMS from home for evaluation of shortness of breath. SOB better. Up to the chair today. Eating okay. No CP. Exam Narrative: AF 97.6 132/72 75 16 97% 4L Gen - NARD sitting up in the chair Chest - few basilar crackles CV -irregularly irregular Telemetry showing atrial fibrillation with controlled rate Abd -soft. Obese. NT Ext -trace pedal edema. Psych - Nml mood and affect Skin - Warm and dry Objective Data Vital Signs Vital Signs: Vital Signs - 24 hr 09/20/24 13:07 09/20/24 13:18 09/20/24 14:00 Temperature Pulse Rate 82 80 78 Respiratory Rate 20 20 Blood Pressure Pulse Oximetry Oxygen Delivery Oxygen Flow Rate 09/20/24 16:00 09/20/24 16:28 09/20/24 16:37 Temperature 97.8 F Pulse Rate 75 88 81 Respiratory Rate 20 20 20 Blood Pressure 148/81 H Pulse Oximetry 100 Oxygen Delivery Oxygen Flow Rate 09/20/24 16:00 09/20/24 16:00 09/20/24 18:00 Temperature Pulse Rate 75 99 Respiratory Rate Blood Pressure Pulse Oximetry 99 Oxygen Delivery Oxygen Flow Rate 4 09/20/24 20:00 09/20/24 20:30 09/20/24 20:30 Temperature 98.3 F Pulse Rate 89 86 Respiratory Rate 19 20 Blood Pressure 157/92 H Pulse Oximetry 97 99 Oxygen Delivery Nasal Cannula Oxygen Flow Rate 4 09/20/24 21:14 09/20/24 21:33 09/21/24 00:00 Temperature 98.4 F Pulse Rate 86 76 90 Respiratory Rate 20 20 Blood Pressure 143/80 H Pulse Oximetry 97 97 Oxygen Delivery Autopap Oxygen Flow Rate 09/21/24 02:05 09/20/24 20:00 09/21/24 00:00 Temperature Pulse Rate 86 Respiratory Rate 20 Blood Pressure Pulse Oximetry 97 97 97 Oxygen Delivery Autopap Nasal Cannula CPAP Oxygen Flow Rate 3 3 09/21/24 04:00 09/21/24 04:00 09/20/24 20:00 Temperature 98.3 F Pulse Rate 85 83 Respiratory Rate 19 Blood Pressure 137/57 L Pulse Oximetry 98 96 Oxygen Delivery CPAP Oxygen Flow Rate 3 09/20/24 22:00 09/21/24 00:00 09/21/24 02:00 Temperature Pulse Rate 75 75 76 Respiratory Rate Blood Pressure Pulse Oximetry Oxygen Delivery Oxygen Flow Rate 09/21/24 04:00 09/21/24 06:00 09/21/24 07:55 Temperature 98.0 F Pulse Rate 62 75 79 Respiratory Rate 12 Blood Pressure 149/85 H Pulse Oximetry 95 Oxygen Delivery Oxygen Flow Rate 09/21/24 08:21 09/21/24 08:21 09/21/24 08:34 Temperature Pulse Rate 84 89 Respiratory Rate 20 20 Blood Pressure Pulse Oximetry 97 Oxygen Delivery Nasal Cannula Oxygen Flow Rate 3 09/21/24 08:00 09/21/24 09:19 09/21/24 11:54 Temperature 97.6 F Pulse Rate 86 75 Respiratory Rate 16 Blood Pressure 132/72 Pulse Oximetry 95 97 Oxygen Delivery Nasal Cannula Oxygen Flow Rate 4 09/21/24 11:50 09/21/24 08:00 Temperature Pulse Rate 91 Respiratory Rate Blood Pressure Pulse Oximetry Oxygen Delivery Nasal Cannula Oxygen Flow Rate 4 Intake/Output Intake/Output: Intake & Output 09/18/24 09/19/24 09/20/24 09/21/24 23:59 23:59 23:59 23:59 Intake Total 1000 1470 1300 Output Total 60 2900 1120 Balance 940 -1430 180 Meds/Results Medications: Active Medications Generic Name Dose Route Start Last Admin Trade Name Freq PRN Reason Stop Dose Admin Acetaminophen 650 mg 09/19/24 22:21 09/21/24 03:16 Acetaminophen 325 Mg Tablet PO 650 mg Q6H PRN Administration Mild Pain (1-3) or Fever Hydrocodone Bitart/Acetaminophen 1 tab 09/19/24 16:27 09/21/24 07:25 Hydrocodone/Acetaminophen (*Crx) 10-325 Mg Tablet PO 1 tab Q6H PRN Administration Pain Rated 4-6 Albuterol 1 - 2 puff 09/19/24 16:27 Albuterol Sulfate (*Sp) Aerosol 1 Puff INHALATION Q4-6H PRN Shortness Of Breath Albuterol 2.5 mg 09/20/24 12:00 09/21/24 12:15 Albuterol Sulfate Neb 2.5 Mg/3 Ml Inh INHALATION Not Given QIDRT ERICKSON Alprazolam 0.5 mg 09/19/24 21:00 09/21/24 09:20 Alprazolam (*Crx) 0.5 Mg Tablet PO 0.5 mg Q12HR ERICKSON Administration Apixaban 10 mg 09/20/24 21:00 09/21/24 09:20 Apixaban 5 Mg Tablet PO 09/27/24 09:01 10 mg Q12HR ERICKSON Administration Apixaban 5 mg 09/27/24 21:00 Apixaban 5 Mg Tablet PO Q12HR ERICKSON Aspirin 81 mg 09/20/24 09:00 09/21/24 09:20 Aspirin 81 Mg Enteric Tablet PO 81 mg QAM ERICKSON Administration Atorvastatin Calcium 20 mg 09/19/24 21:00 09/20/24 21:34 Atorvastatin 20 Mg Tablet PO 20 mg QHS ERICKSON Administration Carvedilol 6.25 mg 09/19/24 21:00 09/21/24 09:19 Carvedilol 6.25 Mg Tablet PO 6.25 mg Q12HR ERICKSON Administration Cyanocobalamin 1,000 mcg 09/20/24 10:20 09/21/24 09:19 Cyanocobalamin Inj 1,000 Mcg/Ml Vial IM 09/22/24 09:01 1,000 mcg DAILY ERICKSON Administration Cyanocobalamin 1,000 mcg 09/21/24 09:00 09/21/24 09:19 Cyanocobalamin 1,000 Mcg Tablet PO 1,000 mcg QAM ERICKSON Administration Dextrose 12.5 gm 09/19/24 22:21 Dextrose 50% 25 Gm/50 Ml Syringe IV PUSH PRN PRN Hypoglycemia Protocol Doxycycline Hyclate 100 mg 09/20/24 10:25 09/21/24 09:19 Doxycycline Hyclate 100 Mg Tablet PO 100 mg Q12HR ERICKSON Administration Erythromycin 1 applic 09/20/24 22:30 09/21/24 09:19 Erythromycin Ophth Ointment 1 Gm Tube EACH EYE 09/27/24 22:29 1 applic Q4HWA ERICKSON Administration Ferrous Sulfate 325 mg 09/21/24 09:00 09/21/24 09:19 Ferrous Sulfate [address] PO 325 mg DAILY ERICKSON Administration Furosemide 40 mg 09/19/24 17:00 09/21/24 09:19 Furosemide Inj 40 Mg/4 Ml Vial IV PUSH 40 mg BID ERICKSON Administration Glucagon 1 mg 09/19/24 22:21 Glucagon For Inj 1 Mg Vial IM PRN PRN Hypoglycemia Protocol Glucose 15 gm 09/19/24 22:21 Glucose Oral Gel 15 Gm Of Glucse In 37.5 Gm Tube PO PRN PRN Hypoglycemia Protocol Hydralazine HCl 10 mg 09/19/24 17:00 09/21/24 09:18 Hydralazine 10 Mg Tablet PO 10 mg BID ERICKSON Administration Ceftriaxone Sodium 1 gm in 50 mls @ 100 mls/hr 09/20/24 09:00 09/21/24 10:35 Rocephin 1 Gm/Ns 50 Ml IVPB Infused Q24H ERICKSON Infusion Dextrose 1,000 mls @ 100 mls/hr 09/19/24 22:21 Dextrose 5% 1,000 Ml IVPB PRN PRN Hypoglycemia Protocol Vancomycin HCl 1,500 mg in 500 mls @ 250 mls/hr 09/22/24 00:00 Vancomycin 1,500 Mg/Ns 500 Ml IVPB Q18H ERICKSON Insulin Aspart 3 - 6 units 09/20/24 08:00 09/21/24 12:02 Insulin Aspart (*Bkc) 100 Units/Ml SUB-Q Not Given TIDWM ERICKSON Protocol Insulin Aspart 1 - 3 units 09/20/24 21:00 09/20/24 21:46 Insulin Aspart (*Bkc) 100 Units/Ml SUB-Q Not Given HS ERICKSON Protocol Levothyroxine Sodium 112 mcg 09/20/24 06:30 09/21/24 06:04 Levothyroxine Sodium 112 Mcg Tablet PO 112 mcg DAILY@0630 ERICKSON Administration Losartan Potassium 100 mg 09/20/24 09:00 09/21/24 09:18 Losartan Potassium 100 Mg Tablet PO 100 mg DAILY ERICKSON Administration Metronidazole 500 mg 09/20/24 14:00 09/21/24 06:04 Metronidazole 500 Mg Tablet PO 500 mg Q8HR ERICKSON Administration Miscellaneous Information 0 each 09/19/24 00:01 09/21/24 02:36 Albuterol Nebs And Hfa Both Ordered - Please Specify When To Use Each Or Discontinue One XX 10/19/24 00:00 Not Given CLARIFY ERICKSON Nitroglycerin 0.4 mg 09/19/24 23:36 09/20/24 07:43 Nitroglycerin Sl 0.4 Mg Tablet SUBLINGUAL 0.4 mg Q5MIN PRN Administration Chest Pain Pantoprazole Sodium 40 mg 09/20/24 09:00 09/21/24 09:18 Pantoprazole 40 Mg Tablet PO 40 mg DAILY ERICKSON Administration Fluticasone/Salmeterol 2 puff 09/20/24 20:00 09/21/24 08:27 Fluticasone/Salmeterol 45-21 Mcg Inhaler 1 Puff INHALATION 2 puff Q12HRT ERICKSON Administration Spironolactone 25 mg 09/20/24 09:00 09/20/24 10:35 Spironolactone 25 Mg Tablet PO Not Given DAILY ERICKSON Radiology Results: ITS Impressions Chest X-Ray 09/19/24 10:09 Impression: Probable mild bibasilar pulmonary edema and central congestive change. Chest CTA 09/20/24 08:07 IMPRESSION: 1. No pulmonary collision. 2. Patchy airspace opacities in the right lower lobe which suspicious for aspiration and/or pneumonia. 3. Mild emphysema. 4. Very small right pleural effusion. 5. Cardiomegaly. 6. Enlargement of the central pulmonary arteries consistent with pulmonary arterial hypertension. 7. Small sliding-type hiatal hernia with change of Michelle-en-Y gastric bypass procedure. Venous Doppler Study 09/20/24 13:07 IMPRESSION: 1. [id number] deep venous thrombosis in the right peroneal veins. Findings were discussed with Nicole Barragan, the nurse caring for the patient, at 1:12 PM. 2. No deep venous thrombosis in the left lower limb. Modified Barium Swallow 09/20/24 13:27 IMPRESSION: Patient tolerated regular consistency oral feedings in the upright position. Please correlate with speech pathologist findings and specific feeding recommendations. Labs Labs: Laboratory Results - last 24 hr 09/20/24 09/20/24 09/20/24 16:30 18:29 22:08 WBC RBC Hgb Hct MCV MCH MCHC RDW Plt Count MPV Immature Gran % (Auto) Neut % (Auto) Lymph % (Auto) [place] % (Auto) Eos % (Auto) Baso % (Auto) Lymph # (Auto) [place] # (Auto) Eos # (Auto) Baso # (Auto) Abs Immat Gran (auto) Absolute Neuts (auto) Absolute Nucleated RBC Nucleated RBC % Sodium Potassium 4.4 Chloride Carbon Dioxide Anion Gap BUN Creatinine Estim Creat Clear Calc Estimated GFR Glucose POC Capillary Glucose 114 H 95 Calcium Magnesium Total Bilirubin AST ALT Alkaline Phosphatase Total Protein Albumin 09/21/24 09/21/24 09/21/24 04:23 07:38 11:47 WBC 6.1 RBC 3.05 L Hgb 10.0 L Hct 32.0 L MCV 104.9 H MCH 32.8 MCHC 31.3 L RDW 14.6 H Plt Count 277 MPV 9.3 Immature Gran % (Auto) 0.3 Neut % (Auto) 67.4 Lymph % (Auto) 18.2 L [place] % (Auto) 9.6 H Eos % (Auto) 3.7 Baso % (Auto) 0.8 Lymph # (Auto) 1.12 [place] # (Auto) 0.6 Eos # (Auto) 0.2 Baso # (Auto) 0.1 Abs Immat Gran (auto) 0.02 Absolute Neuts (auto) 4.1 Absolute Nucleated RBC 0.000 Nucleated RBC % 0.0 Sodium 138 Potassium 4.2 Chloride 104 Carbon Dioxide 28 Anion Gap 6 BUN 20 H Creatinine 0.80 Estim Creat Clear Calc 63 Estimated GFR > 60 Glucose 90 POC Capillary Glucose 94 90 Calcium 8.4 Magnesium 2.0 Total Bilirubin 0.4 AST 35 ALT 27 Alkaline Phosphatase 111 Total Protein 7.0 Albumin 3.6
[2024-09-21 16:29] LABS: Glucose Point of Care 93 mg/dl (65-105)
--- NOTE | 2024-09-21 18:40 | PC.NURSE ---
This patient, Cheyenne Sawyer, was transferred to [facility] on 09/21/24 at 1830. Personal belongings sent with patient. Report given to Con ZIMMERMAN. Appropriate documentation sent with patient.
[2024-09-21 20:24] LABS: Glucose Point of Care 117 mg/dl (65-105)
[2024-09-21] MEDS: AMOXICILLIN/CLAVULANATE K 875-125 MG TAB 1 TABLET PO (20:32)
[2024-09-21] MEDS: ATORVASTATIN 20 MG TABLET PO (20:32)
[2024-09-22] VITALS (18 sets, daily range): BP systolic 119–134; BP diastolic 52–73; PULSE 60–93; RESP 15–20; TEMP 35.8–36.7; O2SAT 90–98
[2024-09-22] MEDS: HYDROcodone/acetaminophen (*CRX) 10-325 MG TABLET 1 TAB PO ×4 (02:29→20:49)
[2024-09-22] MEDS: LEVOTHYROXINE SODIUM 112 MCG TABLET PO (05:18)
[2024-09-22] MEDS: ERYTHROMYCIN OPHTH OINTMENT 1 GM TUBE 1 APPLIC EACH EYE ×5 (05:18→20:50)
[2024-09-22 06:06] LABS: Basophils Absolute Auto 0.1 K/mm3 (0.0-0.1); Basophils Percent Auto 1.3 % (0.2-1.2); Eosinophils Absolute Auto 0.3 K/mm3 (0-0.3); Eosinophils Percent Auto 4.8 % (0-4.4); Hemoglobin 11.4 g/dL (12.0-15.0); Immature Granulocyte Absolute 0.02 K/mm3 (0.00-0.031); Immature Granulocyte Percent A 0.4 % (0-0.5); Lymphocytes Absolute Auto 1.06 K/mm3 (0.9-3.2); Lymphocytes Percent Auto 19.6 % (18.3-44.2); Mean Corpuscular HGB Conc 31.7 g/dl (32-36); Mean Corpuscular Hemoglobin 33.4 pg (26-34); Mean Corpuscular Volume 105.6 fl (80-100); Mean Platelet Volume 9.2 fl (7.4-10.4); Monocytes Absolute Auto 0.6 K/mm3 (0.1-0.6); Monocytes Percent Auto 10.2 % (2.6-8.5); Neutrophils Absolute Auto 3.4 K/mm3 (1.3-6.7); Neutrophils Percent Auto 63.7 % (45.5-73.1); Platelet Count Result 299 k/mm3 (150-375); Red Blood Count 3.41 M/mm3 (4.2-5.4); Red Cell Distribution Width 14.5 % (11.5-14.5); White Blood Count 5.4 K/mm3 (4.5-10.0)
[2024-09-22 06:21] LABS: Albumin Level 3.6 g/dL (3.5-5.1); Anion Gap 6 mmol/L (4-12); Blood Urea Nitrogen 17 mg/dL (7-17); Calcium 8.4 mg/dL (8.4-10.2); Carbon Dioxide 31 mmol/L (22-30); Chloride 100 mmol/L (98-107); Estimated CRCL calculation 63 ml/min; Estimated Glomerular Filt Rate > 60; Glucose 102 mg/dL (65-110); Magnesium 1.9 mg/dL (1.6-2.3); Phosphorus 3.2 mg/dL (2.5-4.5); Potassium 3.9 mmol/L (3.4-5.0); Sodium 137 mmol/L (137-145)
[2024-09-22 07:18] LABS: Macrocytosis 1+ (NORMAL); Platelet Estimate Adequate (Adequate)
[2024-09-22 07:19] LABS: Ovalocytes 2+
[2024-09-22 07:21] LABS: Schistocytes None Seen
[2024-09-22] MEDS: FLUTICASONE/SALMETEROL 45-21 MCG INHALER 1 PUFF 2 PUFF INHALATION ×2 (07:23→20:00)
[2024-09-22] MEDS: ALBUTEROL SULFATE NEB 2.5 MG/3 ML INH INHALATION ×4 (07:23→19:59)
[2024-09-22 08:05] LABS: Glucose Point of Care 110 mg/dl (65-105)
[2024-09-22] MEDS: LOSARTAN POTASSIUM 100 MG TABLET PO (08:35)
[2024-09-22] MEDS: APIXABAN 5 MG TABLET 10 MG PO ×2 (08:35→20:49)
[2024-09-22] MEDS: ASPIRIN 81 MG ENTERIC TABLET PO (08:35)
[2024-09-22] MEDS: ALPRAZolam (*CRX) 0.5 MG TABLET PO ×2 (08:35→20:50)
[2024-09-22] MEDS: FERROUS SULFATE 325 MG TABLET DR PO (08:36)
[2024-09-22] MEDS: carvediloL 6.25 MG TABLET PO ×2 (08:36→20:50)
[2024-09-22] MEDS: PANTOPRAZOLE 40 MG TABLET PO (08:36)
[2024-09-22] MEDS: hydrALAZINE 10 MG TABLET PO ×2 (08:37→16:26)
[2024-09-22] MEDS: CYANOCOBALAMIN 1,000 MCG TABLET 1000 MCG PO (08:37)
[2024-09-22] MEDS: DOXYCYCLINE HYCLATE 100 MG TABLET PO ×2 (08:37→20:49)
[2024-09-22] MEDS: AMOXICILLIN/CLAVULANATE K 875-125 MG TAB 1 TABLET PO ×2 (08:37→20:49)
[2024-09-22] MEDS: FUROSEMIDE INJ 40 MG/4 ML VIAL IV PUSH ×2 (08:39→16:26)
[2024-09-22] MEDS: CYANOCOBALAMIN INJ 1,000 MCG/ML VIAL 1000 MCG IM (08:44)
--- NOTE | 2024-09-22 10:32 | P.PNIM_ITS ---
Progress Note: A&P Assessment and Plan (1) CHF exacerbation: Code(s): I50.9 - Heart failure, unspecified Status: Acute Assessment and Plan: * Patient presents with shortness of breath. She was 100% on her 4 L. * Influenza, RSV and COVID PCR were negative. BNP 7300. D-dimer positive at 1.2. * Troponin mildly elevated at 0.039 -> 0.035. EKG showing AFib, RAD and Rt BBB. * AB.35/40/94 on 4 L. * Chest x-ray shows mild bibasilar pulmonary edema. CTA was negative for PE but does show patchy airspace opacities in the right lower lobe suspicious for aspiration and/or pneumonia. * Doppler positive for Rt peroneal vein DVT. * Echo showing EF 62%, Grade III diastolic dysfxn, RVE, mild pHTN (54mmHg) * Suspect acute on chronic diastolic CHF exacerbation and possibly pneumonia. Mildly elevated Trop related to CHF. * UOP 2900mL but even fluid balance. * Continue IV Lasix. Eliquis started. Fluid restrict (2) Pneumonia: Qualifiers: Pneumonia type: aspiration pneumonia Aspiration pneumonia type: unspecified Laterality: bilateral Lung location: lower lobe of lung Qualified Code(s): J69.0 - Pneumonitis due to inhalation of food and vomit Code(s): J18.9 - Pneumonia, unspecified organism Status: Acute Assessment and Plan: * Imaging as above. Patient having productive cough. White count normal. CRP 1.7. PCT 0.1. * On Augmentin for UTI. Doxycycline 100 mg PO Q 12. * MRSA nasal swab positive. * Sputum culture pending. Urine antigens pending. * Speech eval showing no concerns. She did recommend Easy to chew Level 7 which was ordered. * Since aspiration less likely, will stop Flagyl. De-escalate abx and change to oral (3) DVT (deep venous thrombosis): Code(s): I82.409 - Acute embolism and thrombosis of unspecified deep veins of unspecified lower extremity Status: Acute Assessment and Plan: * Patient has ethan off her Eliquis prior to admission. * Doppler showing below the knee DVT right peroneal veins. * Resume Eliquis and start with therapeutic dosing for DVT (4) Macrocytic anemia: Code(s): D53.9 - Nutritional anemia, unspecified Status: Acute Assessment and Plan: * Patient with chronic anemia in the past but more recently her hemoglobin was 13 in April. * Hemoglobin 10.2 on admission with macrocytosis. * Iron studies showed normal iron and TIBC with saturation of 12%. Ferritin normal at 67. * B12 level low at 189 with a normal folate. TSH normal. * Patient with B12 deficiency. Iron stores (Ferritin <100)are low as well. * Replaced B12. Iron replacement as well. * Hgb stable at 11.4 * Monitor H&H and transfuse as necessary. (5) Chronic atrial fibrillation: Code(s): I48.20 - Chronic atrial fibrillation, unspecified Status: Acute Assessment and Plan: * Patient with chronic atrial fibrillation. Echo as above. * She is not on Eliquis despite high [id number] score of at least 6. * Resumed Eliquis. Discussed with care coordination about ways for her to afford this medication. * Patient was spoken to about Coumadin but she refuses Coumadin. (6) Chronic obstructive pulmonary disease: Code(s): J44.9 - Chronic obstructive pulmonary disease, unspecified Status: Acute Assessment and Plan: * Patient was wheezing earlier but improved after breathing treatment. * Continue bronchodilators. * Continue Advair. (7) UTI (urinary tract infection): Qualifiers: Hematuria presence: without hematuria Urinary tract infection type: site unspecified Qualified Code(s): N39.0 - Urinary tract infection, site not specified Code(s): N39.0 - Urinary tract infection, site not specified Status: Acute Assessment and Plan: * UA is concerning for UTI. UCx collected. * Rocephin started. * UCx EColi that is relatively sterling-sensitive. Changed to Augmentin to complete a course (8) Chronic respiratory failure with hypoxia: Code(s): J96.11 - Chronic respiratory failure with hypoxia Status: Acute Assessment and Plan: * Patient is on 4 L at rest, with exertion and at night. * She has a high SpO2 on 3LNC with Sa02 98%. * Wean O2 as tolerated to keep SpO2>92%. Home O2 evaluation at discharge * Follow (9) Hypertension: Qualifiers: Hypertension type: essential hypertension Qualified Code(s): I10 - Essential (primary) hypertension Code(s): I10 - Essential (primary) hypertension Status: Acute Assessment and Plan: * Patient's blood pressure was reviewed on 09/21 * Blood pressure was poorly controlled. Home medications were resumed. * Potassium high so holding spironolactone. * BP better overall, 124/73 * Will continue to monitor for now. (10) Hypothyroidism (acquired): Code(s): E03.9 - Hypothyroidism, unspecified Status: Acute Assessment and Plan: * TSH normal. * Continue levothyroxine. (11) Type 2 diabetes mellitus: Code(s): E11.9 - Type 2 diabetes mellitus without complications Status: Acute Assessment and Plan: * A1c 5.4%. The patient's blood glucose was reviewed on 09/21 * Glucose remains well controlled. * Continue AccuCheks covering with sliding scale. Hypoglycemia protocol available as needed. * Continue to monitor (12) Obstructive sleep apnea: Code(s): G47.33 - Obstructive sleep apnea (adult) (pediatric) Status: Acute Assessment and Plan: * Patient states she is compliant with BiPAP at night. * Continue auto BiPAP Plan DVT prophylaxis -Eliquis Code status -full Subjective Date/time seen: 09/22/24 10:32 Interval history: Patient denies pain at present. Patient reports shortness of breath on exertion. Denies chest pain, palpitations, headache, dizziness, nausea, or vomiting. Patient reports that she sometimes feel as if she is going to pass out after she eats for the past two months. Patient states that she has a little pain in abdomen feels a little dizzy then lies down. Patient reports feeling fine when she gets up and states that she has never passed out. Patient has a history of gastric bypass. Review of Systems Review of Systems: All systems reviewed & are unremarkable except as noted in HPI and below Exam Const: General: comfortable and no acute distress Eyes: Sclera: sclerae normal Resp: Auscultation: diminished lung sounds Cardio: Rhythm: abnormal rhythm irregularly irregular GI: GI Palp: Yes Soft to palpation Auscultation: normal bowel sounds Other: obese Skin: General skin exam: no rashes or lesions noted Neuro: Speech: normal speech Extrem: General: pedal edema bilaterally (trace edema) Psych: Affect: normal affect Objective Data Vital Signs Vital Signs: Vital Signs - 24 hr 09/21/24 11:54 09/21/24 11:50 09/21/24 12:00 Temperature 97.6 F Pulse Rate 75 Respiratory Rate 16 Blood Pressure 132/72 Pulse Oximetry 97 97 Oxygen Delivery Nasal Cannula Nasal Cannula Oxygen Flow Rate 4 3 Fraction of Inspired Oxygen 09/21/24 12:00 09/21/24 15:52 09/21/24 16:00 Temperature Pulse Rate 90 72 75 Respiratory Rate 20 20 Blood Pressure Pulse Oximetry Oxygen Delivery Oxygen Flow Rate Fraction of Inspired Oxygen 09/21/24 14:00 09/21/24 16:00 09/21/24 18:44 Temperature 97.7 F 97.6 F Pulse Rate 67 66 92 Respiratory Rate 16 20 Blood Pressure 127/57 L 134/65 Pulse Oximetry 97 96 Oxygen Delivery Oxygen Flow Rate Fraction of Inspired Oxygen 09/21/24 20:00 09/21/24 20:32 09/21/24 20:00 Temperature 97.9 F Pulse Rate 81 61 61 Respiratory Rate 18 18 Blood Pressure 142/62 H Pulse Oximetry 100 100 Oxygen Delivery Nasal Cannula Oxygen Flow Rate 3 Fraction of Inspired Oxygen 36 09/21/24 21:45 09/21/24 22:34 09/21/24 22:35 Temperature Pulse Rate 70 71 Respiratory Rate 20 21 H Blood Pressure Pulse Oximetry 98 98 Oxygen Delivery Nasal Cannula Autopap Oxygen Flow Rate 3 Fraction of Inspired Oxygen 09/22/24 00:00 09/22/24 04:00 09/22/24 06:11 Temperature 97.7 F 98.1 F 97.7 F Pulse Rate 66 60 75 Respiratory Rate 18 18 18 Blood Pressure 125/64 131/61 134/64 Pulse Oximetry 90 95 96 Oxygen Delivery Oxygen Flow Rate Fraction of Inspired Oxygen 09/22/24 07:23 09/22/24 07:23 09/22/24 08:30 Temperature 97.3 F L Pulse Rate 84 85 Respiratory Rate 20 20 Blood Pressure 124/73 Pulse Oximetry 95 98 Oxygen Delivery Nasal Cannula Oxygen Flow Rate 3 Fraction of Inspired Oxygen 09/22/24 08:36 09/22/24 08:33 Temperature Pulse Rate 85 85 Respiratory Rate 20 Blood Pressure Pulse Oximetry 98 Oxygen Delivery Nasal Cannula Oxygen Flow Rate 3 Fraction of Inspired Oxygen Intake/Output Intake/Output: Intake & Output 09/19/24 09/20/24 09/21/24 09/22/24 23:59 23:59 23:59 23:59 Intake Total 1000 1470 1770 390 Output Total 60 2900 2970 Balance 940 1430 -1200 390 Meds/Results Medications: Active Medications Generic Name Dose Route Start Last Admin Trade Name Freq PRN Reason Stop Dose Admin Acetaminophen 650 mg 09/19/24 22:21 09/21/24 03:16 Acetaminophen 325 Mg Tablet PO 650 mg Q6H PRN Administration Mild Pain (1-3) or Fever Hydrocodone Bitart/Acetaminophen 1 tab 09/19/24 16:27 09/22/24 08:33 Hydrocodone/Acetaminophen (*Crx) 10-325 Mg Tablet PO 1 tab Q6H PRN Administration Pain Rated 4-6 Albuterol 1 - 2 puff 09/19/24 16:27 Albuterol Sulfate (*Sp) Aerosol 1 Puff INHALATION Q4-6H PRN Shortness Of Breath Albuterol 2.5 mg 09/20/24 12:00 09/22/24 07:23 Albuterol Sulfate Neb 2.5 Mg/3 Ml Inh INHALATION 2.5 mg QIDRT ERICKSON Administration Alprazolam 0.5 mg 09/19/24 21:00 09/22/24 08:35 Alprazolam (*Crx) 0.5 Mg Tablet PO 0.5 mg Q12HR ERICKSON Administration Amoxicillin/Clavulanate Potassium 1 tablet 09/21/24 21:00 09/22/24 08:37 Amoxicillin/Clavulanate K 875-125 Mg Tab PO 09/26/24 21:01 1 tablet Q12HR ERICKSON Administration Apixaban 10 mg 09/20/24 21:00 09/22/24 08:35 Apixaban 5 Mg Tablet PO 09/27/24 09:01 10 mg Q12HR ERICKSON Administration Apixaban 5 mg 09/27/24 21:00 Apixaban 5 Mg Tablet PO Q12HR ERICKSON Aspirin 81 mg 09/20/24 09:00 09/22/24 08:35 Aspirin 81 Mg Enteric Tablet PO 81 mg QAM ERICKSON Administration Atorvastatin Calcium 20 mg 09/19/24 21:00 09/21/24 20:32 Atorvastatin 20 Mg Tablet PO 20 mg QHS ERICKSON Administration Carvedilol 6.25 mg 09/19/24 21:00 09/22/24 08:36 Carvedilol 6.25 Mg Tablet PO 6.25 mg Q12HR ERICKSON Administration Cyanocobalamin 1,000 mcg 09/21/24 09:00 09/22/24 08:37 Cyanocobalamin 1,000 Mcg Tablet PO 1,000 mcg QAM ERICKSON Administration Dextrose 12.5 gm 09/19/24 22:21 Dextrose 50% 25 Gm/50 Ml Syringe IV PUSH PRN PRN Hypoglycemia Protocol Doxycycline Hyclate 100 mg 09/20/24 10:25 09/22/24 08:37 Doxycycline Hyclate 100 Mg Tablet PO 09/26/24 21:01 100 mg Q12HR ERICKSON Administration Erythromycin 1 applic 09/20/24 22:30 09/22/24 08:38 Erythromycin Ophth Ointment 1 Gm Tube EACH EYE 09/27/24 22:29 1 applic Q4HWA ERICKSON Administration Ferrous Sulfate 325 mg 09/21/24 09:00 09/22/24 08:36 Ferrous Sulfate [address] PO 325 mg DAILY ERICKSON Administration Furosemide 40 mg 09/19/24 17:00 09/22/24 08:39 Furosemide Inj 40 Mg/4 Ml Vial IV PUSH 40 mg BID ERICKSON Administration Glucagon 1 mg 09/19/24 22:21 Glucagon For Inj 1 Mg Vial IM PRN PRN Hypoglycemia Protocol Glucose 15 gm 09/19/24 22:21 Glucose Oral Gel 15 Gm Of Glucse In 37.5 Gm Tube PO PRN PRN Hypoglycemia Protocol Hydralazine HCl 10 mg 09/19/24 17:00 09/22/24 08:37 Hydralazine 10 Mg Tablet PO 10 mg BID ERICKSON Administration Dextrose 1,000 mls @ 100 mls/hr 09/19/24 22:21 Dextrose 5% 1,000 Ml IVPB PRN PRN Hypoglycemia Protocol Insulin Aspart 3 - 6 units 09/20/24 08:00 09/22/24 08:50 Insulin Aspart (*Bkc) 100 Units/Ml SUB-Q Not Given TIDWM ERICKSON Protocol Insulin Aspart 1 - 3 units 09/20/24 21:00 09/21/24 20:37 Insulin Aspart (*Bkc) 100 Units/Ml SUB-Q Not Given HS ERICKSON Protocol Levothyroxine Sodium 112 mcg 09/20/24 06:30 09/22/24 05:18 Levothyroxine Sodium 112 Mcg Tablet PO 112 mcg DAILY@0630 ERICKSON Administration Losartan Potassium 100 mg 09/20/24 09:00 09/22/24 08:35 Losartan Potassium 100 Mg Tablet PO 100 mg DAILY ERICKSON Administration Miscellaneous Information 0 each 09/19/24 00:01 09/21/24 02:36 Albuterol Nebs And Hfa Both Ordered - Please Specify When To Use Each Or Discontinue One XX 10/19/24 00:00 Not Given CLARIFY ERICKSON Nitroglycerin 0.4 mg 09/19/24 23:36 09/20/24 07:43 Nitroglycerin Sl 0.4 Mg Tablet SUBLINGUAL 0.4 mg Q5MIN PRN Administration Chest Pain Pantoprazole Sodium 40 mg 09/20/24 09:00 09/22/24 08:36 Pantoprazole 40 Mg Tablet PO 40 mg DAILY ERICKSON Administration Fluticasone/Salmeterol 2 puff 09/20/24 20:00 09/22/24 07:23 Fluticasone/Salmeterol 45-21 Mcg Inhaler 1 Puff INHALATION 2 puff Q12HRT ERICKSON Administration Spironolactone 25 mg 09/20/24 09:00 09/20/24 10:35 Spironolactone 25 Mg Tablet PO Not Given DAILY ERICKSON Radiology Results: ITS Impressions Chest X-Ray 09/19/24 10:09 Impression: Probable mild bibasilar pulmonary edema and central congestive change. Chest CTA 09/20/24 08:07 IMPRESSION: 1. No pulmonary collision. 2. Patchy airspace opacities in the right lower lobe which suspicious for aspiration and/or pneumonia. 3. Mild emphysema. 4. Very small right pleural effusion. 5. Cardiomegaly. 6. Enlargement of the central pulmonary arteries consistent with pulmonary arterial hypertension. 7. Small sliding-type hiatal hernia with change of Michelle-en-Y gastric bypass procedure. Venous Doppler Study 09/20/24 13:07 IMPRESSION: 1. [id number] deep venous thrombosis in the right peroneal veins. Findings were discussed with Nicole Barragan, the nurse caring for the patient, at 1:12 PM. 2. No deep venous thrombosis in the left lower limb. Modified Barium Swallow 09/20/24 13:27 IMPRESSION: Patient tolerated regular consistency oral feedings in the upright position. Please correlate with speech pathologist findings and specific feeding recommendations. Labs Labs: Laboratory Results - last 24 hr 09/21/24 09/21/24 09/21/24 11:47 16:23 20:22 WBC RBC Hgb Hct MCV MCH MCHC RDW Plt Count MPV Immature Gran % (Auto) Neut % (Auto) Lymph % (Auto) Cloud % (Auto) Eos % (Auto) Baso % (Auto) Lymph # (Auto) Cloud # (Auto) Eos # (Auto) Baso # (Auto) Abs Immat Gran (auto) Absolute Neuts (auto) Absolute Nucleated RBC Nucleated RBC % Platelet Estimate Macrocytosis Ovalocytes Schistocytes Sodium Potassium Chloride Carbon Dioxide Anion Gap BUN Creatinine Estim Creat Clear Calc Estimated GFR Glucose POC Capillary Glucose 90 93 117 H Calcium Phosphorus Magnesium Albumin 09/22/24 09/22/24 04:58 08:03 WBC 5.4 RBC 3.41 L Hgb 11.4 L Hct 36.0 L MCV 105.6 H MCH 33.4 MCHC 31.7 L RDW 14.5 Plt Count 299 MPV 9.2 Immature Gran % (Auto) 0.4 Neut % (Auto) 63.7 Lymph % (Auto) 19.6 Cloud % (Auto) 10.2 H Eos % (Auto) 4.8 H Baso % (Auto) 1.3 H Lymph # (Auto) 1.06 Cloud # (Auto) 0.6 Eos # (Auto) 0.3 Baso # (Auto) 0.1 Abs Immat Gran (auto) 0.02 Absolute Neuts (auto) 3.4 Absolute Nucleated RBC 0.000 Nucleated RBC % 0.0 Platelet Estimate Adequate Macrocytosis 1+ Ovalocytes 2+ Schistocytes None seen Sodium 137 Potassium 3.9 Chloride 100 Carbon Dioxide 31 H Anion Gap 6 BUN 17 Creatinine 0.80 Estim Creat Clear Calc 63 Estimated GFR > 60 Glucose 102 POC Capillary Glucose 110 H Calcium 8.4 Phosphorus 3.2 Magnesium 1.9 Albumin 3.6 Quality VTE Prophylaxis VTE prophylaxis: pharmacologic ordered
--- NOTE | 2024-09-22 10:52 | PCDIET ---
Nutrition note: Meal intakes 75-100% on heart healthy, Level 6 easy to chew. No nutrition needs today. Following for length of stay or consult for other needs.
[2024-09-22 12:02] LABS: Glucose Point of Care 112 mg/dl (65-105)
[2024-09-22 17:03] LABS: Glucose Point of Care 115 mg/dl (65-105)
[2024-09-22] MEDS: ATORVASTATIN 20 MG TABLET PO (20:49)
[2024-09-23] VITALS (17 sets, daily range): BP systolic 118–145; BP diastolic 60–72; PULSE 73–92; RESP 16–20; TEMP 35.8–36.4; O2SAT 96–100
[2024-09-23] MEDS: HYDROcodone/acetaminophen (*CRX) 10-325 MG TABLET 1 TAB PO ×4 (02:42→20:43)
[2024-09-23] MEDS: LEVOTHYROXINE SODIUM 112 MCG TABLET PO (05:32)
[2024-09-23] MEDS: ERYTHROMYCIN OPHTH OINTMENT 1 GM TUBE 1 APPLIC EACH EYE ×5 (05:32→20:47)
[2024-09-23 06:04] LABS: Basophils Absolute Auto 0.1 K/mm3 (0.0-0.1); Basophils Percent Auto 1.1 % (0.2-1.2); Eosinophils Absolute Auto 0.3 K/mm3 (0-0.3); Eosinophils Percent Auto 4.4 % (0-4.4); Hematocrit 40.1 % (37.0-47.0); Hemoglobin 12.4 g/dL (12.0-15.0); Immature Granulocyte Absolute 0.03 K/mm3 (0.00-0.031); Immature Granulocyte Percent A 0.5 % (0-0.5); Lymphocytes Percent Auto 22.6 % (18.3-44.2); Mean Corpuscular HGB Conc 30.9 g/dl (32-36); Mean Corpuscular Hemoglobin 32.5 pg (26-34); Mean Platelet Volume 9.1 fl (7.4-10.4); Monocytes Absolute Auto 0.6 K/mm3 (0.1-0.6); Monocytes Percent Auto 8.4 % (2.6-8.5); Neutrophils Absolute Auto 4.2 K/mm3 (1.3-6.7); Platelet Count Result 355 k/mm3 (150-375); Red Blood Count 3.82 M/mm3 (4.2-5.4); Red Cell Distribution Width 14.1 % (11.5-14.5); White Blood Count 6.7 K/mm3 (4.5-10.0)
[2024-09-23 06:16] LABS: Alanine Aminotransferase 23 U/L (6-35); Alkaline Phosphatase 135 U/L (38-126); Anion Gap 3 mmol/L (4-12); Aspartate Amino Transferase 29 U/L (14-36); Bilirubin,Total 0.6 mg/dL (0.2-1.3); Blood Urea Nitrogen 22 mg/dL (7-17); Calcium 8.8 mg/dL (8.4-10.2); Carbon Dioxide 35 mmol/L (22-30); Chloride 97 mmol/L (98-107); Estimated CRCL calculation 50 ml/min; Estimated Glomerular Filt Rate 54; Glucose 105 mg/dL (65-110); Potassium 4.2 mmol/L (3.4-5.0); Sodium 135 mmol/L (137-145)
[2024-09-23] MEDS: ALBUTEROL SULFATE NEB 2.5 MG/3 ML INH INHALATION ×4 (07:41→20:21)
[2024-09-23] MEDS: FLUTICASONE/SALMETEROL 45-21 MCG INHALER 1 PUFF 2 PUFF INHALATION ×2 (07:41→20:21)
[2024-09-23 08:18] LABS: Glucose Point of Care 107 mg/dl (65-105)
[2024-09-23] MEDS: carvediloL 6.25 MG TABLET PO ×2 (08:25→20:43)
[2024-09-23] MEDS: CYANOCOBALAMIN 1,000 MCG TABLET 1000 MCG PO (08:25)
[2024-09-23] MEDS: FERROUS SULFATE 325 MG TABLET DR PO (08:25)
[2024-09-23] MEDS: DOXYCYCLINE HYCLATE 100 MG TABLET PO ×2 (08:26→20:43)
[2024-09-23] MEDS: PANTOPRAZOLE 40 MG TABLET PO (08:26)
[2024-09-23] MEDS: APIXABAN 5 MG TABLET 10 MG PO (08:26)
[2024-09-23] MEDS: hydrALAZINE 10 MG TABLET PO ×2 (08:27→16:55)
[2024-09-23] MEDS: ASPIRIN 81 MG ENTERIC TABLET PO (08:27)
[2024-09-23] MEDS: ALPRAZolam (*CRX) 0.5 MG TABLET PO ×2 (08:28→20:44)
[2024-09-23] MEDS: LOSARTAN POTASSIUM 100 MG TABLET PO (08:28)
[2024-09-23] MEDS: AMOXICILLIN/CLAVULANATE K 875-125 MG TAB 1 TABLET PO ×2 (08:28→20:44)
[2024-09-23] MEDS: FUROSEMIDE INJ 40 MG/4 ML VIAL IV PUSH ×2 (08:30→16:55)
--- NOTE | 2024-09-23 11:45 | P.PNIM_ITS ---
Progress Note: A&P Assessment and Plan (1) CHF exacerbation: Code(s): I50.9 - Heart failure, unspecified Status: Acute Assessment and Plan: * Patient presents with shortness of breath. She was 100% on her 4 L. * Influenza, RSV and COVID PCR were negative. BNP 7300. D-dimer positive at 1.2. * Troponin mildly elevated at 0.039 -> 0.035. EKG showing AFib, RAD and Rt BBB. * AB.35/40/94 on 4 L. * Chest x-ray shows mild bibasilar pulmonary edema. CTA was negative for PE but does show patchy airspace opacities in the right lower lobe suspicious for aspiration and/or pneumonia. * Doppler positive for Rt peroneal vein DVT. * Echo showing EF 62%, Grade III diastolic dysfxn, RVE, mild pHTN (54mmHg) * Suspect acute on chronic diastolic CHF exacerbation and possibly pneumonia. Mildly elevated Trop related to CHF. * UOP 2900mL but even fluid balance. * Continue IV Lasix. Eliquis started. Fluid restrict (2) Pneumonia: Qualifiers: Aspiration pneumonia type: unspecified Laterality: bilateral Lung location: lower lobe of lung Pneumonia type: aspiration pneumonia Qualified Code(s): J69.0 - Pneumonitis due to inhalation of food and vomit Code(s): J18.9 - Pneumonia, unspecified organism Status: Acute Assessment and Plan: * Imaging as above. Patient having productive cough. White count normal. CRP 1.7. PCT 0.1. * On Augmentin for UTI. Doxycycline 100 mg PO Q 12. * MRSA nasal swab positive. * Sputum culture pending. Urine antigens pending. * Speech eval showing no concerns. She did recommend Easy to chew Level 7 which was ordered. * Since aspiration less likely, will stop Flagyl. De-escalate abx and change to oral (3) DVT (deep venous thrombosis): Code(s): I82.409 - Acute embolism and thrombosis of unspecified deep veins of unspecified lower extremity Status: Acute Assessment and Plan: * Patient has ethan off her Eliquis prior to admission. * Doppler showing below the knee DVT right peroneal veins. * Patient unable to afford Eliquis or Xarelto * Today start Lovenox 100 mg subq q12. Will need to stay on Lovenox for a day after patient reaches INR of 2-3 then in can be discontinued with patient receiving only Warfarin. * Start Warfarin 5 mg PO qpm tonight. Goal 2-3. Patient will need set up for INR testing at discharge. (4) Macrocytic anemia: Code(s): D53.9 - Nutritional anemia, unspecified Status: Acute Assessment and Plan: * Patient with chronic anemia in the past but more recently her hemoglobin was 13 in April. * Hemoglobin 10.2 on admission with macrocytosis. * Iron studies showed normal iron and TIBC with saturation of 12%. Ferritin normal at 67. * B12 level low at 189 with a normal folate. TSH normal. * Patient with B12 deficiency. Iron stores (Ferritin <100)are low as well. * Replaced B12. Iron replacement as well. * Hgb stable at 12.4 * Monitor H&H and transfuse as necessary. (5) Chronic atrial fibrillation: Code(s): I48.20 - Chronic atrial fibrillation, unspecified Status: Acute Assessment and Plan: * Patient with chronic atrial fibrillation. Echo as above. * She is not on Eliquis despite high [id number] score of 7. * Today start Lovenox 100 mg subq q12. Will need to stay on Lovenox for a day after patient reaches INR of 2-3 then in can be discontinued with patient receiving only Warfarin. * Start Warfarin 5 mg PO qpm tonight. Goal 2-3. Patient will need set up for INR testing at discharge. (6) Chronic obstructive pulmonary disease: Code(s): J44.9 - Chronic obstructive pulmonary disease, unspecified Status: Acute Assessment and Plan: * Patient was wheezing earlier but improved after breathing treatment. * Continue bronchodilators. * Continue Advair. (7) UTI (urinary tract infection): Qualifiers: Hematuria presence: without hematuria Urinary tract infection type: site unspecified Qualified Code(s): N39.0 - Urinary tract infection, site not specified Code(s): N39.0 - Urinary tract infection, site not specified Status: Acute Assessment and Plan: * UA is concerning for UTI. UCx collected. * Rocephin started. * UCx EColi that is relatively sterling-sensitive. Changed to Augmentin to complete a course (8) Chronic respiratory failure with hypoxia: Code(s): J96.11 - Chronic respiratory failure with hypoxia Status: Acute Assessment and Plan: * Patient is on 4 L at rest, with exertion and at night. * She has a high SpO2 on 3LNC with Sa02 98%. * Wean O2 as tolerated to keep SpO2>92%. Home O2 evaluation at discharge * Follow (9) Hypertension: Qualifiers: Hypertension type: essential hypertension Qualified Code(s): I10 - Essential (primary) hypertension Code(s): I10 - Essential (primary) hypertension Status: Acute Assessment and Plan: * Patient's blood pressure was reviewed on 09/21 * Blood pressure was poorly controlled. Home medications were resumed. * Potassium high so holding spironolactone. * BP better overall, 138/72 * Will continue to monitor for now. (10) Hypothyroidism (acquired): Code(s): E03.9 - Hypothyroidism, unspecified Status: Acute Assessment and Plan: * TSH normal. * Continue levothyroxine. (11) Type 2 diabetes mellitus: Code(s): E11.9 - Type 2 diabetes mellitus without complications Status: Acute Assessment and Plan: * A1c 5.4%. The patient's blood glucose was reviewed on 09/21 * Glucose remains well controlled. * Continue AccuCheks covering with sliding scale. Hypoglycemia protocol available as needed. * Continue to monitor (12) Obstructive sleep apnea: Code(s): G47.33 - Obstructive sleep apnea (adult) (pediatric) Status: Acute Assessment and Plan: * Patient states she is compliant with BiPAP at night. 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 and Warfarin Code status -full Subjective Date/time seen: 09/23/24 11:45 Interval history: Patient unable to afford Xarelto or Eliquis. Patient will need switched to Warfarin with Lovenox bridge. Patient reports that breathing is improved and that she was even able to lie flat earlier today. Patient denies chest pain, palpitations, headache, dizziness, nausea, or vomiting. Review of Systems Review of Systems: All systems reviewed & are unremarkable except as noted in HPI and below Exam Const: General: comfortable and no acute distress Eyes: Sclera: sclerae normal Resp: Auscultation: diminished lung sounds Cardio: Rhythm: abnormal rhythm irregularly irregular GI: GI Palp: Yes Soft to palpation Auscultation: normal bowel sounds Other: obese Skin: General skin exam: no rashes or lesions noted Neuro: Speech: normal speech Extrem: General: no pedal edema Psych: Affect: normal affect Objective Data Vital Signs Vital Signs: Vital Signs - 24 hr 09/22/24 13:12 09/22/24 14:50 09/22/24 16:24 Temperature 96.5 F L 97.3 F L Pulse Rate 68 69 Respiratory Rate 20 16 20 Blood Pressure 119/58 L 125/60 Pulse Oximetry 97 97 Oxygen Delivery Oxygen Flow Rate Fraction of Inspired Oxygen 09/22/24 16:45 09/22/24 16:55 09/22/24 19:59 Temperature Pulse Rate 80 76 Respiratory Rate 20 20 Blood Pressure Pulse Oximetry 96 Oxygen Delivery Nasal Cannula Oxygen Flow Rate 3 Fraction of Inspired Oxygen 09/22/24 19:59 09/22/24 20:12 09/22/24 20:50 Temperature Pulse Rate 80 77 72 Respiratory Rate 18 18 Blood Pressure Pulse Oximetry Oxygen Delivery Oxygen Flow Rate Fraction of Inspired Oxygen 09/22/24 22:17 09/22/24 20:00 09/22/24 23:16 Temperature 97.0 F L Pulse Rate 93 93 77 Respiratory Rate 16 16 15 Blood Pressure 132/52 L Pulse Oximetry 95 95 97 Oxygen Delivery Nasal Cannula Autopap Oxygen Flow Rate 3 Fraction of Inspired Oxygen 36 09/23/24 01:59 09/23/24 06:00 09/23/24 07:41 Temperature 96.5 F L Pulse Rate 73 Respiratory Rate 16 20 Blood Pressure 139/69 Pulse Oximetry 99 96 Oxygen Delivery Autopap Nasal Cannula Oxygen Flow Rate 3 Fraction of Inspired Oxygen 09/23/24 07:41 09/23/24 07:52 09/23/24 08:23 Temperature 97.5 F L Pulse Rate 76 74 83 Respiratory Rate 18 18 18 Blood Pressure 145/67 H Pulse Oximetry 100 Oxygen Delivery Oxygen Flow Rate Fraction of Inspired Oxygen 09/23/24 08:25 09/23/24 08:27 09/23/24 11:00 Temperature Pulse Rate 80 80 80 Respiratory Rate 18 18 Blood Pressure Pulse Oximetry 100 Oxygen Delivery Nasal Cannula Oxygen Flow Rate 3 Fraction of Inspired Oxygen 09/23/24 11:09 Temperature Pulse Rate 76 Respiratory Rate 18 Blood Pressure Pulse Oximetry Oxygen Delivery Oxygen Flow Rate Fraction of Inspired Oxygen Intake/Output Intake/Output: Intake & Output 09/20/24 09/21/24 09/22/24 09/23/24 23:59 23:59 23:59 23:59 Intake Total 1470 1770 1260 840 Output Total 2900 2970 2200 Balance -1430 -1200 1260 -1360 Meds/Results Medications: Active Medications Generic Name Dose Route Start Last Admin Trade Name Freq PRN Reason Stop Dose Admin Acetaminophen 650 mg 09/19/24 22:21 09/21/24 03:16 Acetaminophen 325 Mg Tablet PO 650 mg Q6H PRN Administration Mild Pain (1-3) or Fever Hydrocodone Bitart/Acetaminophen 1 tab 09/19/24 16:27 09/23/24 08:27 Hydrocodone/Acetaminophen (*Crx) 10-325 Mg Tablet PO 1 tab Q6H PRN Administration Pain Rated 4-6 Albuterol 1 - 2 puff 09/19/24 16:27 Albuterol Sulfate (*Sp) Aerosol 1 Puff INHALATION Q4-6H PRN Shortness Of Breath Albuterol 2.5 mg 09/20/24 12:00 09/23/24 11:00 Albuterol Sulfate Neb 2.5 Mg/3 Ml Inh INHALATION 2.5 mg QIDRT ERICKSON Administration Alprazolam 0.5 mg 09/19/24 21:00 09/23/24 08:28 Alprazolam (*Crx) 0.5 Mg Tablet PO 0.5 mg Q12HR ERICKSON Administration Amoxicillin/Clavulanate Potassium 1 tablet 09/21/24 21:00 09/23/24 08:28 Amoxicillin/Clavulanate K 875-125 Mg Tab PO 09/26/24 21:01 1 tablet Q12HR ERICSKON Administration Apixaban 10 mg 09/20/24 21:00 09/23/24 08:26 Apixaban 5 Mg Tablet PO 09/27/24 09:01 10 mg Q12HR ERICKSON Administration Apixaban 5 mg 09/27/24 21:00 Apixaban 5 Mg Tablet PO Q12HR ERICKSON Aspirin 81 mg 09/20/24 09:00 09/23/24 08:27 Aspirin 81 Mg Enteric Tablet PO 81 mg QAM ERICKSON Administration Atorvastatin Calcium 20 mg 09/19/24 21:00 09/22/24 20:49 Atorvastatin 20 Mg Tablet PO 20 mg QHS ERICKSON Administration Carvedilol 6.25 mg 09/19/24 21:00 09/23/24 08:25 Carvedilol 6.25 Mg Tablet PO 6.25 mg Q12HR ERICKSON Administration Cyanocobalamin 1,000 mcg 09/21/24 09:00 09/23/24 08:25 Cyanocobalamin 1,000 Mcg Tablet PO 1,000 mcg QAM ERICKSON Administration Dextrose 12.5 gm 09/19/24 22:21 Dextrose 50% 25 Gm/50 Ml Syringe IV PUSH PRN PRN Hypoglycemia Protocol Doxycycline Hyclate 100 mg 09/20/24 10:25 09/23/24 08:26 Doxycycline Hyclate 100 Mg Tablet PO 09/26/24 21:01 100 mg Q12HR ERICKSON Administration Erythromycin 1 applic 09/20/24 22:30 09/23/24 08:30 Erythromycin Ophth Ointment 1 Gm Tube EACH EYE 09/27/24 22:29 1 applic Q4HWA ERICKSON Administration Ferrous Sulfate 325 mg 09/21/24 09:00 09/23/24 08:25 Ferrous Sulfate [address] PO 325 mg DAILY ERICKSON Administration Furosemide 40 mg 09/19/24 17:00 09/23/24 08:30 Furosemide Inj 40 Mg/4 Ml Vial IV PUSH 40 mg BID ERICKSON Administration Glucagon 1 mg 09/19/24 22:21 Glucagon For Inj 1 Mg Vial IM PRN PRN Hypoglycemia Protocol Glucose 15 gm 09/19/24 22:21 Glucose Oral Gel 15 Gm Of Glucse In 37.5 Gm Tube PO PRN PRN Hypoglycemia Protocol Hydralazine HCl 10 mg 09/19/24 17:00 09/23/24 08:27 Hydralazine 10 Mg Tablet PO 10 mg BID ERICKSON Administration Dextrose 1,000 mls @ 100 mls/hr 09/19/24 22:21 Dextrose 5% 1,000 Ml IVPB PRN PRN Hypoglycemia Protocol Insulin Aspart 3 - 6 units 09/20/24 08:00 09/23/24 09:22 Insulin Aspart (*Bkc) 100 Units/Ml SUB-Q Not Given TIDWM [facility] Protocol Insulin Aspart 1 - 3 units 09/20/24 21:00 09/22/24 21:00 Insulin Aspart (*Bkc) 100 Units/Ml SUB-Q Not Given HS EIRCKSON Protocol Levothyroxine Sodium 112 mcg 09/20/24 06:30 09/23/24 05:32 Levothyroxine Sodium 112 Mcg Tablet PO 112 mcg DAILY@0630 ERICKSON Administration Losartan Potassium 100 mg 09/20/24 09:00 09/23/24 08:28 Losartan Potassium 100 Mg Tablet PO 100 mg DAILY ERICKSON Administration Miscellaneous Information 0 each 09/19/24 00:01 09/21/24 02:36 Albuterol Nebs And Hfa Both Ordered - Please Specify When To Use Each Or Discontinue One XX 10/19/24 00:00 Not Given CLARIFY ERICKSON Nitroglycerin 0.4 mg 09/19/24 23:36 09/20/24 07:43 Nitroglycerin Sl 0.4 Mg Tablet SUBLINGUAL 0.4 mg Q5MIN PRN Administration Chest Pain Pantoprazole Sodium 40 mg 09/20/24 09:00 09/23/24 08:26 Pantoprazole 40 Mg Tablet PO 40 mg DAILY ERICKSON Administration Fluticasone/Salmeterol 2 puff 09/20/24 20:00 09/23/24 07:41 Fluticasone/Salmeterol 45-21 Mcg Inhaler 1 Puff INHALATION 2 puff Q12HRT ERICKSON Administration Spironolactone 25 mg 09/20/24 09:00 09/20/24 10:35 Spironolactone 25 Mg Tablet PO Not Given DAILY ERICKSON Radiology Results: ITS Impressions Chest X-Ray 09/19/24 10:09 Impression: Probable mild bibasilar pulmonary edema and central congestive change. Chest CTA 09/20/24 08:07 IMPRESSION: 1. No pulmonary collision. 2. Patchy airspace opacities in the right lower lobe which suspicious for aspiration and/or pneumonia. 3. Mild emphysema. 4. Very small right pleural effusion. 5. Cardiomegaly. 6. Enlargement of the central pulmonary arteries consistent with pulmonary arterial hypertension. 7. Small sliding-type hiatal hernia with change of Michelle-en-Y gastric bypass procedure. Venous Doppler Study 09/20/24 13:07 IMPRESSION: 1. [id number] deep venous thrombosis in the right peroneal veins. Findings were discussed with Nicole Barragan, the nurse caring for the patient, at 1:12 PM. 2. No deep venous thrombosis in the left lower limb. Modified Barium Swallow 09/20/24 13:27 IMPRESSION: Patient tolerated regular consistency oral feedings in the upright position. Please correlate with speech pathologist findings and specific feeding recommendations. Labs Labs: Laboratory Results - last 24 hr 09/22/24 09/22/24 09/23/24 11:55 17:00 05:43 WBC 6.7 RBC 3.82 L Hgb 12.4 Hct 40.1 MCV 105.0 H MCH 32.5 MCHC 30.9 L RDW 14.1 Plt Count 355 MPV 9.1 Immature Gran % (Auto) 0.5 Neut % (Auto) 63.0 Lymph % (Auto) 22.6 [place] % (Auto) 8.4 Eos % (Auto) 4.4 Baso % (Auto) 1.1 Lymph # (Auto) 1.50 [place] # (Auto) 0.6 Eos # (Auto) 0.3 Baso # (Auto) 0.1 Abs Immat Gran (auto) 0.03 Absolute Neuts (auto) 4.2 Absolute Nucleated RBC 0.000 Nucleated RBC % 0.0 Sodium 135 L Potassium 4.2 Chloride 97 L Carbon Dioxide 35 H Anion Gap 3 L BUN 22 H Creatinine 1.00 Estim Creat Clear Calc 50 Estimated GFR 54 L Glucose 105 POC Capillary Glucose 112 H 115 H Calcium 8.8 Total Bilirubin 0.6 AST 29 ALT 23 Alkaline Phosphatase 135 H Total Protein 7.0 Albumin 4.0 09/23/24 08:12 WBC RBC Hgb Hct MCV MCH MCHC RDW Plt Count MPV Immature Gran % (Auto) Neut % (Auto) Lymph % (Auto) [place] % (Auto) Eos % (Auto) Baso % (Auto) Lymph # (Auto) [place] # (Auto) Eos # (Auto) Baso # (Auto) Abs Immat Gran (auto) Absolute Neuts (auto) Absolute Nucleated RBC Nucleated RBC % Sodium Potassium Chloride Carbon Dioxide Anion Gap BUN Creatinine Estim Creat Clear Calc Estimated GFR Glucose POC Capillary Glucose 107 H Calcium Total Bilirubin AST ALT Alkaline Phosphatase Total Protein Albumin Quality VTE Prophylaxis VTE prophylaxis: pharmacologic ordered
[2024-09-23 12:12] LABS: Glucose Point of Care 91 mg/dl (65-105)
[2024-09-23 13:20] LABS: INR 1.5; Prothrombin Time 18.2 Seconds (11.1-14.7)
[2024-09-23 13:21] LABS: Partial Thromboplastin Time 33.9 Seconds (22.3-36.8)
[2024-09-23] MEDS: WARFARIN (*PBKC) 5 MG TABLET PO (16:55)
[2024-09-23 17:09] LABS: Glucose Point of Care 150 mg/dl (65-105)
[2024-09-23 19:33] LABS: Legionella pneumophila Ag Ur NOT DETECTED
[2024-09-23 20:30] LABS: Glucose Point of Care 109 mg/dl (65-105)
[2024-09-23] MEDS: ENOXAPARIN 100 MG/ML SYRINGE SUB-Q (20:44)
[2024-09-23] MEDS: ATORVASTATIN 20 MG TABLET PO (20:44)
[2024-09-24] VITALS (14 sets, daily range): BP systolic 107–132; BP diastolic 43–60; PULSE 69–80; RESP 16–20; TEMP 36.3–36.6; O2SAT 95–100
[2024-09-24] MEDS: HYDROcodone/acetaminophen (*CRX) 10-325 MG TABLET 1 TAB PO ×3 (04:30→15:45)
[2024-09-24 06:02] LABS: Basophils Absolute Auto 0.1 K/mm3 (0.0-0.1); Basophils Percent Auto 1.6 % (0.2-1.2); Eosinophils Absolute Auto 0.3 K/mm3 (0-0.3); Eosinophils Percent Auto 4.2 % (0-4.4); Hematocrit 39.4 % (37.0-47.0); Immature Granulocyte Absolute 0.02 K/mm3 (0.00-0.031); Immature Granulocyte Percent A 0.3 % (0-0.5); Lymphocytes Absolute Auto 1.45 K/mm3 (0.9-3.2); Lymphocytes Percent Auto 22.6 % (18.3-44.2); Mean Corpuscular HGB Conc 30.5 g/dl (32-36); Mean Corpuscular Hemoglobin 31.9 pg (26-34); Mean Corpuscular Volume 104.8 fl (80-100); Mean Platelet Volume 9.1 fl (7.4-10.4); Monocytes Absolute Auto 0.6 K/mm3 (0.1-0.6); Neutrophils Percent Auto 62.3 % (45.5-73.1); Platelet Count Result 356 k/mm3 (150-375); Red Blood Count 3.76 M/mm3 (4.2-5.4); Red Cell Distribution Width 14.2 % (11.5-14.5); White Blood Count 6.4 K/mm3 (4.5-10.0)
[2024-09-24 06:05] LABS: Alanine Aminotransferase 22 U/L (6-35); Albumin Level 3.9 g/dL (3.5-5.1); Alkaline Phosphatase 139 U/L (38-126); Anion Gap 5 mmol/L (4-12); Aspartate Amino Transferase 30 U/L (14-36); Bilirubin,Total 0.6 mg/dL (0.2-1.3); Blood Urea Nitrogen 26 mg/dL (7-17); Calcium 8.8 mg/dL (8.4-10.2); Carbon Dioxide 31 mmol/L (22-30); Chloride 98 mmol/L (98-107); Estimated CRCL calculation 55 ml/min; Estimated Glomerular Filt Rate > 60; Glucose 112 mg/dL (65-110); Sodium 134 mmol/L (137-145)
[2024-09-24] MEDS: ERYTHROMYCIN OPHTH OINTMENT 1 GM TUBE 1 APPLIC EACH EYE ×4 (06:10→21:12)
[2024-09-24] MEDS: LEVOTHYROXINE SODIUM 112 MCG TABLET PO (06:11)
[2024-09-24 06:14] LABS: Glucose Point of Care 111 mg/dl (65-105)
[2024-09-24 06:17] LABS: INR 1.3; Prothrombin Time 16.8 Seconds (11.1-14.7)
[2024-09-24 06:18] LABS: Partial Thromboplastin Time 44.2 Seconds (22.3-36.8)
--- NOTE | 2024-09-24 07:47 | P.PNIM_ITS ---
Progress Note: A&P Assessment and Plan (1) Chronic respiratory failure with hypoxia: Code(s): J96.11 - Chronic respiratory failure with hypoxia Status: Acute Assessment and Plan: * Patient is on 3-4 L at rest, with exertion and at night. * She has a high SpO2 on 3LNC with Sa02 98%. * Wean O2 as tolerated to keep SpO2>92%. Home O2 evaluation at discharge * Follow (2) CHF exacerbation: Code(s): I50.9 - Heart failure, unspecified Status: Acute Assessment and Plan: Suspect acute on chronic diastolic CHF exacerbation and possibly pneumonia. Mildly elevated Trop related to CHF. - Symptoms: Shortness of breath. - Current medications: - Supportive treatment Tyl and ibu prn Nebs prn - Fluid restriction 1500 ml/day - Lasix 40 mg IV BID - BNP: 7300 - D dimer positive - Troponin mildly elevated at 0.039 -> 0.035. EKG showing AFib, RAD and Rt BBB. - AB.35/40/94 on 4 L. - Chest x-ray shows mild bibasilar pulmonary edema. - CTA was negative for PE but does show patchy airspace opacities in the right lower lobe suspicious for aspiration and/or pneumonia. - Echo: EF 62%, Grade III diastolic dysfxn, RVE, mild pHTN (54mmHg) - Monitor vital signs, I&Os, BUN/creatinine, daily weights, neuro status and patient is a fall risk - Monitor serum electrolytes, Keep serum Potassium>4 and serum Magnesium>2 and CBC (3) Pneumonia: Qualifiers: Aspiration pneumonia type: unspecified Laterality: bilateral Lung location: lower lobe of lung Pneumonia type: aspiration pneumonia Qualified Code(s): J69.0 - Pneumonitis due to inhalation of food and vomit Code(s): J18.9 - Pneumonia, unspecified organism Status: Acute Assessment and Plan: - Chest x-ray shows mild bibasilar pulmonary edema. - CTA was negative for PE but does show patchy airspace opacities in the right lower lobe suspicious for aspiration and/or pneumonia. - Complicating Factors: CHF exacerbation and COPD on chronic O2 supplementation - Antibiotics: Augmentin and doxycycline, course to be completed on 09/26 - Viral PCR: negative for Flu/COVID/RSV - Sputum culture: Normal oropharyngeal maria luz - MRSA negative - supportive treatment - Monitor vital signs, I&Os, neuro status and patient is a fall risk - Follow WBC, serum electrolytes, temperature curves and cultures - Speech eval showing no concerns. She did recommend Easy to chew Level 7 which was ordered. * Since aspiration less likely, will stop Flagyl. De-escalate abx and change to oral (4) DVT (deep venous thrombosis): Code(s): I82.409 - Acute embolism and thrombosis of unspecified deep veins of unspecified lower extremity Status: Acute Assessment and Plan: Patient has ethan off her Eliquis prior to admission, unable to afford Eliquis or Xarelto - INR 1.3 on am labs - Doppler showing below the knee DVT right peroneal veins. - Start Lovenox 100 mg subq q12. Will need to stay on Lovenox for a day after patient reaches INR of 2-3 then in can be discontinued with patient receiving only Warfarin. - Start Warfarin 5 mg PO qpm. Goal 2-3. Patient will need set up for INR testing at discharge. (5) UTI (urinary tract infection): Qualifiers: Hematuria presence: without hematuria Urinary tract infection type: site unspecified Qualified Code(s): N39.0 - Urinary tract infection, site not specified Code(s): N39.0 - Urinary tract infection, site not specified Status: Acute Assessment and Plan: UA is concerning for UTI. UCx collected. Rocephin started. UCx EColi that is relatively sterling-sensitive. Changed to Augmentin to complete a course (6) Macrocytic anemia: Code(s): D53.9 - Nutritional anemia, unspecified Status: Acute Assessment and Plan: Patient with chronic anemia in the past but more recently her hemoglobin was 13 in April. Hemoglobin 10.2 on admission with macrocytosis. - H/H 12/39.4 on am labs - Iron studies showed normal iron and TIBC with saturation of 12%. Ferritin normal at 67. - B12 level low at 189 with a normal folate. - Patient with B12 deficiency. Iron stores (Ferritin <100)are low as well. - Replaced B12. Iron replacement as well. - TSH normal. - Monitor H&H and transfuse as necessary. (7) Chronic atrial fibrillation: Code(s): I48.20 - Chronic atrial fibrillation, unspecified Status: Acute Assessment and Plan: Chronic atrial fibrillation. Echo as above. - She is not on Eliquis despite high [id number] score of 7. - Started on Lovenox 100 mg subq q12. Will need to stay on Lovenox for a day after patient reaches INR of 2-3 then in can be discontinued with patient receiving only Warfarin. - Start Warfarin 5 mg PO qpm tonight. Goal 2-3. Patient will need set up for INR testing at discharge. (8) Chronic obstructive pulmonary disease: Code(s): J44.9 - Chronic obstructive pulmonary disease, unspecified Status: Acute Assessment and Plan: - Continue bronchodilators. - Continue Advair. (9) Hypertension: Qualifiers: Hypertension type: essential hypertension Qualified Code(s): I10 - Essential (primary) hypertension Code(s): I10 - Essential (primary) hypertension Status: Acute Assessment and Plan: Chronic, blood pressure was poorly controlled. Home medications were resumed. - Coreg 6.25 mg BID - Hydralazine 10 mg BID - Losartan 100 mg daily - Spironolactone 25 mg daily, potassium level WNL on am labs. - Will continue to monitor (10) Hypothyroidism (acquired): Code(s): E03.9 - Hypothyroidism, unspecified Status: Acute Assessment and Plan: * TSH normal. * Continue levothyroxine. (11) Type 2 diabetes mellitus: Code(s): E11.9 - Type 2 diabetes mellitus without complications Status: Acute Assessment and Plan: * A1c 5.4%. The patient's blood glucose was reviewed on 09/21 * Glucose remains well controlled. * Continue AccuCheks covering with sliding scale. Hypoglycemia protocol available as needed. * Continue to monitor (12) Obstructive sleep apnea: Code(s): G47.33 - Obstructive sleep apnea (adult) (pediatric) Status: Acute Assessment and Plan: * Patient states she is compliant with BiPAP at night. 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 Spent With Patient Time with patient: 25 - 35 minutes Subjective Date/time seen: 09/24/24 07:47 Interval history: 79-year-old female with multiple medical problems including chronic respiratory failure on home oxygen, obstructive sleep apnea, chronic obstructive pulmonary disease, pulmonary hypertension, heart failure with preserved ejection fraction, chronic atrial fibrillation for which she is prescribed anticoagulation however she has not been taking it for a couple of months due to cost, chronic anemia, and anxiety who presented to the emergency department via EMS from home for evaluation of shortness of breath. Patient is pleasant lying comfortably in bed. She states that she is feeling much better today. She denies chest pain, shortness a breath, palpitations, nausea/ vomiting, and abdominal pain. She also denies any urinary symptoms in cluding burning sensation, dysuria, hematuria or increased frequency/ urgency. Review of Systems Review of Systems: All systems reviewed & are unremarkable except as noted in HPI and below Exam Narrative: AF HR 74 RR 18 SPO2 95 3L NC (baseline) BP 132/58 General: female in no acute respiratory distress who is nontoxic appearing, lying semi recumbent in bed. HEENT: Normocephalic. Atraumatic. Extraocular movement intact. Sclera clear and anicteric. No facial asymmetry. Chest: Lungs are diminished to auscultation bilaterally. No wheezes or crackles. CV: Heart was regular rate. S1-S2. No murmurs, gallops, or rubs. Abd: Abdomen was soft. Nontender. Nondistended. Positive bowel sounds. No organomegaly or masses. Ext: No clubbing, cyanosis, or edema. 2+ DP pulses bilaterally. Neuro: Patient is alert and oriented x3. Cranial nerves 2-12 are intact. Speech is clear. Objective Data Vital Signs Vital Signs: Vital Signs - 24 hr 09/23/24 07:52 09/23/24 08:23 09/23/24 08:25 Temperature 97.5 F L Pulse Rate 74 83 80 Respiratory Rate 18 18 Blood Pressure 145/67 H Pulse Oximetry 100 Oxygen Delivery Oxygen Flow Rate Fraction of Inspired Oxygen 09/23/24 08:27 09/23/24 11:00 09/23/24 11:09 Temperature Pulse Rate 80 80 76 Respiratory Rate 18 18 18 Blood Pressure Pulse Oximetry 100 Oxygen Delivery Nasal Cannula Oxygen Flow Rate 3 Fraction of Inspired Oxygen 09/23/24 12:00 09/23/24 16:02 09/23/24 16:15 Temperature 97.6 F Pulse Rate 78 92 76 Respiratory Rate 17 18 18 Blood Pressure 138/72 Pulse Oximetry 100 Oxygen Delivery Oxygen Flow Rate Fraction of Inspired Oxygen 09/23/24 16:54 09/23/24 20:21 09/23/24 20:21 Temperature 97 F L Pulse Rate 91 80 Respiratory Rate 18 18 Blood Pressure 118/60 Pulse Oximetry 99 97 Oxygen Delivery Nasal Cannula Oxygen Flow Rate 3 Fraction of Inspired Oxygen 09/23/24 20:00 09/23/24 20:29 09/23/24 20:00 Temperature 97.1 F L Pulse Rate 84 83 83 Respiratory Rate 20 18 18 Blood Pressure 127/68 Pulse Oximetry 99 97 Oxygen Delivery Nasal Cannula Oxygen Flow Rate 3 Fraction of Inspired Oxygen 36 09/23/24 22:12 09/24/24 00:00 09/24/24 01:45 Temperature 97.4 F L Pulse Rate 69 Respiratory Rate 17 18 17 Blood Pressure 127/57 L Pulse Oximetry 98 Oxygen Delivery Autopap Autopap Oxygen Flow Rate Fraction of Inspired Oxygen 09/24/24 04:00 Temperature 97.3 F L Pulse Rate 79 Respiratory Rate 20 Blood Pressure 107/43 L Pulse Oximetry 100 Oxygen Delivery Oxygen Flow Rate Fraction of Inspired Oxygen Intake/Output Intake/Output: Intake & Output 09/21/24 09/22/24 09/23/24 09/24/24 23:59 23:59 23:59 23:59 Intake Total 1770 1260 1692 240 Output Total 2970 3887 351 Balance -1200 1260 -808 -111 Meds/Results Medications: Active Medications Generic Name Dose Route Start Last Admin Trade Name Freq PRN Reason Stop Dose Admin Acetaminophen 650 mg 09/19/24 22:21 09/21/24 03:16 Acetaminophen 325 Mg Tablet PO 650 mg Q6H PRN Administration Mild Pain (1-3) or Fever Hydrocodone Bitart/Acetaminophen 1 tab 09/19/24 16:27 09/24/24 04:30 Hydrocodone/Acetaminophen (*Crx) 10-325 Mg Tablet PO 1 tab Q6H PRN Administration Pain Rated 4-6 Albuterol 1 - 2 puff 09/19/24 16:27 Albuterol Sulfate (*Sp) Aerosol 1 Puff INHALATION Q4-6H PRN Shortness Of Breath Albuterol 2.5 mg 09/20/24 12:00 09/23/24 20:21 Albuterol Sulfate Neb 2.5 Mg/3 Ml Inh INHALATION 2.5 mg QIDRT ERICKSON Administration Alprazolam 0.5 mg 09/19/24 21:00 09/23/24 20:44 Alprazolam (*Crx) 0.5 Mg Tablet PO 0.5 mg Q12HR ERICKSON Administration Amoxicillin/Clavulanate Potassium 1 tablet 09/21/24 21:00 09/23/24 20:44 Amoxicillin/Clavulanate K 875-125 Mg Tab PO 09/26/24 21:01 1 tablet Q12HR ERICKSON Administration Aspirin 81 mg 09/20/24 09:00 09/23/24 08:27 Aspirin 81 Mg Enteric Tablet PO 81 mg QAM ERICKSON Administration Atorvastatin Calcium 20 mg 09/19/24 21:00 09/23/24 20:44 Atorvastatin 20 Mg Tablet PO 20 mg QHS ERICKSON Administration Carvedilol 6.25 mg 09/19/24 21:00 09/23/24 20:43 Carvedilol 6.25 Mg Tablet PO 6.25 mg Q12HR ERICKSON Administration Cyanocobalamin 1,000 mcg 09/21/24 09:00 09/23/24 08:25 Cyanocobalamin 1,000 Mcg Tablet PO 1,000 mcg QAM ERICKSON Administration Dextrose 12.5 gm 09/19/24 22:21 Dextrose 50% 25 Gm/50 Ml Syringe IV PUSH PRN PRN Hypoglycemia Protocol Doxycycline Hyclate 100 mg 09/20/24 10:25 09/23/24 20:43 Doxycycline Hyclate 100 Mg Tablet PO 09/26/24 21:01 100 mg Q12HR ERICKSON Administration Enoxaparin Sodium 100 mg 09/23/24 21:00 09/23/24 20:44 Enoxaparin 100 Mg/Ml Syringe SUB-Q 100 mg Q12H ERICKSON Administration Erythromycin 1 applic 09/20/24 22:30 09/24/24 06:10 Erythromycin Ophth Ointment 1 Gm Tube EACH EYE 09/27/24 22:29 1 applic Q4HWA ERICKSON Administration Ferrous Sulfate 325 mg 09/21/24 09:00 09/23/24 08:25 Ferrous Sulfate [address] PO 325 mg DAILY ERICKSON Administration Furosemide 40 mg 09/19/24 17:00 09/23/24 16:55 Furosemide Inj 40 Mg/4 Ml Vial IV PUSH 40 mg BID ERICKSON Administration Glucagon 1 mg 09/19/24 22:21 Glucagon For Inj 1 Mg Vial IM PRN PRN Hypoglycemia Protocol Glucose 15 gm 09/19/24 22:21 Glucose Oral Gel 15 Gm Of Glucse In 37.5 Gm Tube PO PRN PRN Hypoglycemia Protocol Hydralazine HCl 10 mg 09/19/24 17:00 09/23/24 16:55 Hydralazine 10 Mg Tablet PO 10 mg BID ERICKSON Administration Dextrose 1,000 mls @ 100 mls/hr 09/19/24 22:21 Dextrose 5% 1,000 Ml IVPB PRN PRN Hypoglycemia Protocol Insulin Aspart 3 - 6 units 09/20/24 08:00 09/23/24 17:54 Insulin Aspart (*Bkc) 100 Units/Ml SUB-Q Not Given TIDWM ERICKSON Protocol Insulin Aspart 1 - 3 units 09/20/24 21:00 09/23/24 20:40 Insulin Aspart (*Bkc) 100 Units/Ml SUB-Q Not Given HS ERICKSON Protocol Levothyroxine Sodium 112 mcg 09/20/24 06:30 09/24/24 06:11 Levothyroxine Sodium 112 Mcg Tablet PO 112 mcg DAILY@0630 ERICKSON Administration Losartan Potassium 100 mg 09/20/24 09:00 09/23/24 08:28 Losartan Potassium 100 Mg Tablet PO 100 mg DAILY ERICKSON Administration Miscellaneous Information 0 each 09/19/24 00:01 09/21/24 02:36 Albuterol Nebs And Hfa Both Ordered - Please Specify When To Use Each Or Discontinue One XX 10/19/24 00:00 Not Given CLARIFY ERICKSON Nitroglycerin 0.4 mg 09/19/24 23:36 09/20/24 07:43 Nitroglycerin Sl 0.4 Mg Tablet SUBLINGUAL 0.4 mg Q5MIN PRN Administration Chest Pain Pantoprazole Sodium 40 mg 09/20/24 09:00 09/23/24 08:26 Pantoprazole 40 Mg Tablet PO 40 mg DAILY ERICKSON Administration Fluticasone/Salmeterol 2 puff 09/20/24 20:00 09/23/24 20:21 Fluticasone/Salmeterol 45-21 Mcg Inhaler 1 Puff INHALATION 2 puff Q12HRT ERICKSON Administration Spironolactone 25 mg 09/20/24 09:00 09/20/24 10:35 Spironolactone 25 Mg Tablet PO Not Given DAILY ERICKSON Warfarin Sodium 5 mg 09/23/24 17:00 09/23/24 16:55 Warfarin (*Pbkc) 5 Mg Tablet PO 5 mg DAILY@1700 ERICKSON Administration Radiology Results: ITS Impressions Chest X-Ray 09/19/24 10:09 Impression: Probable mild bibasilar pulmonary edema and central congestive change. Chest CTA 09/20/24 08:07 IMPRESSION: 1. No pulmonary collision. 2. Patchy airspace opacities in the right lower lobe which suspicious for aspiration and/or pneumonia. 3. Mild emphysema. 4. Very small right pleural effusion. 5. Cardiomegaly. 6. Enlargement of the central pulmonary arteries consistent with pulmonary arterial hypertension. 7. Small sliding-type hiatal hernia with change of Michelle-en-Y gastric bypass procedure. Venous Doppler Study 09/20/24 13:07 IMPRESSION: 1. [id number] deep venous thrombosis in the right peroneal veins. Findings were discussed with Nicole Barragan, the nurse caring for the patient, at 1:12 PM. 2. No deep venous thrombosis in the left lower limb. Modified Barium Swallow 09/20/24 13:27 IMPRESSION: Patient tolerated regular consistency oral feedings in the upright position. Please correlate with speech pathologist findings and specific feeding recommendations. Labs Labs: Laboratory Results - last 24 hr 09/20/24 09/23/24 09/23/24 11:53 08:12 11:59 WBC RBC Hgb Hct MCV MCH MCHC RDW Plt Count MPV Immature Gran % (Auto) Neut % (Auto) Lymph % (Auto) [place] % (Auto) Eos % (Auto) Baso % (Auto) Lymph # (Auto) [place] # (Auto) Eos # (Auto) Baso # (Auto) Abs Immat Gran (auto) Absolute Neuts (auto) Absolute Nucleated RBC Nucleated RBC % PT INR APTT Sodium Potassium Chloride Carbon Dioxide Anion Gap BUN Creatinine Estim Creat Clear Calc Estimated GFR Glucose POC Capillary Glucose 107 H 91 Calcium Total Bilirubin AST ALT Alkaline Phosphatase Total Protein Albumin Ur L.pneumophila Ag Not detected 09/23/24 09/23/24 09/23/24 13:05 17:02 20:27 WBC RBC Hgb Hct MCV MCH MCHC RDW Plt Count MPV Immature Gran % (Auto) Neut % (Auto) Lymph % (Auto) [place] % (Auto) Eos % (Auto) Baso % (Auto) Lymph # (Auto) [place] # (Auto) Eos # (Auto) Baso # (Auto) Abs Immat Gran (auto) Absolute Neuts (auto) Absolute Nucleated RBC Nucleated RBC % PT 18.2 H D INR 1.5 APTT 33.9 Sodium Potassium Chloride Carbon Dioxide Anion Gap BUN Creatinine Estim Creat Clear Calc Estimated GFR Glucose POC Capillary Glucose 150 H 109 H Calcium Total Bilirubin AST ALT Alkaline Phosphatase Total Protein Albumin Ur L.pneumophila Ag 09/24/24 09/24/24 05:31 06:09 WBC 6.4 RBC 3.76 L Hgb 12.0 Hct 39.4 MCV 104.8 H MCH 31.9 MCHC 30.5 L RDW 14.2 Plt Count 356 MPV 9.1 Immature Gran % (Auto) 0.3 Neut % (Auto) 62.3 Lymph % (Auto) 22.6 [place] % (Auto) 9.0 H Eos % (Auto) 4.2 Baso % (Auto) 1.6 H Lymph # (Auto) 1.45 [place] # (Auto) 0.6 Eos # (Auto) 0.3 Baso # (Auto) 0.1 Abs Immat Gran (auto) 0.02 Absolute Neuts (auto) 4.0 Absolute Nucleated RBC 0.000 Nucleated RBC % 0.0 PT 16.8 H INR 1.3 APTT 44.2 H Sodium 134 L Potassium 4.0 Chloride 98 Carbon Dioxide 31 H Anion Gap 5 BUN 26 H Creatinine 0.90 Estim Creat Clear Calc 55 Estimated GFR > 60 Glucose 112 H POC Capillary Glucose 111 H Calcium 8.8 Total Bilirubin 0.6 AST 30 ALT 22 Alkaline Phosphatase 139 H Total Protein 6.0 L Albumin 3.9 Ur L.pneumophila Ag Quality VTE Prophylaxis VTE prophylaxis: pharmacologic ordered
[2024-09-24] MEDS: ALBUTEROL SULFATE NEB 2.5 MG/3 ML INH INHALATION ×3 (07:50→20:18)
[2024-09-24 08:21] LABS: Glucose Point of Care 108 mg/dl (65-105)
[2024-09-24] MEDS: ALPRAZolam (*CRX) 0.5 MG TABLET PO ×2 (08:56→21:11)
[2024-09-24] MEDS: FERROUS SULFATE 325 MG TABLET DR PO (08:57)
[2024-09-24] MEDS: ASPIRIN 81 MG ENTERIC TABLET PO (08:57)
[2024-09-24] MEDS: carvediloL 6.25 MG TABLET PO ×2 (08:57→21:11)
[2024-09-24] MEDS: DOXYCYCLINE HYCLATE 100 MG TABLET PO ×2 (08:57→21:11)
[2024-09-24] MEDS: CYANOCOBALAMIN 1,000 MCG TABLET 1000 MCG PO (08:57)
[2024-09-24] MEDS: AMOXICILLIN/CLAVULANATE K 875-125 MG TAB 1 TABLET PO ×2 (08:57→21:11)
[2024-09-24] MEDS: FUROSEMIDE INJ 40 MG/4 ML VIAL IV PUSH ×2 (08:58→16:39)
[2024-09-24] MEDS: hydrALAZINE 10 MG TABLET PO ×2 (08:58→16:39)
[2024-09-24] MEDS: LOSARTAN POTASSIUM 100 MG TABLET PO (08:58)
[2024-09-24] MEDS: PANTOPRAZOLE 40 MG TABLET PO (08:58)
[2024-09-24] MEDS: ENOXAPARIN 120 MG/0.8 ML SYRINGE 105 MG SUB-Q ×2 (09:07→21:12)
--- NOTE | 2024-09-24 09:22 | PCPTNOTE ---
Attempted to see patient for PT, however patient in chair and reported she feels like she's going to pass out. Assisted patient back to bed with RN. Patient unable to participate with PT at this time. Will check back at a later time.
--- NOTE | 2024-09-24 09:36 | PC.NURSE ---
Patient c/o abd pain after eating. Patient states she has severe pain after eating and this happens all the time [facility] ALEXANDRA notified.
[2024-09-24 12:14] LABS: Glucose Point of Care 97 mg/dl (65-105)
[2024-09-24 14:59] LABS: Lipase 106 U/L (23-300)
[2024-09-24] MEDS: WARFARIN (*PBKC) 5 MG TABLET PO (16:39)
[2024-09-24 17:04] LABS: Glucose Point of Care 104 mg/dl (65-105)
[2024-09-24] MEDS: FLUTICASONE/SALMETEROL 45-21 MCG INHALER 1 PUFF 2 PUFF INHALATION (20:17)
[2024-09-24 21:04] LABS: Glucose Point of Care 118 mg/dl (65-105)
[2024-09-24] MEDS: ATORVASTATIN 20 MG TABLET PO (21:11)
[2024-09-24] MEDS: ACETAMINOPHEN 325 MG TABLET 650 MG PO (21:11)
[2024-09-25] VITALS (12 sets, daily range): BP systolic 93–117; BP diastolic 42–67; PULSE 60–86; RESP 16–18; TEMP 36.1–36.6; O2SAT 94–100
[2024-09-25] MEDS: HYDROcodone/acetaminophen (*CRX) 10-325 MG TABLET 1 TAB PO ×4 (02:58→21:08)
[2024-09-25] MEDS: ERYTHROMYCIN OPHTH OINTMENT 1 GM TUBE 1 APPLIC EACH EYE ×5 (05:32→21:05)
[2024-09-25] MEDS: LEVOTHYROXINE SODIUM 112 MCG TABLET PO (05:33)
[2024-09-25 05:45] LABS: Basophils Absolute Auto 0.1 K/mm3 (0.0-0.1); Basophils Percent Auto 1.5 % (0.2-1.2); Eosinophils Absolute Auto 0.3 K/mm3 (0-0.3); Hematocrit 36.7 % (37.0-47.0); Hemoglobin 11.2 g/dL (12.0-15.0); Immature Granulocyte Absolute 0.01 K/mm3 (0.00-0.031); Immature Granulocyte Percent A 0.2 % (0-0.5); Lymphocytes Absolute Auto 1.29 K/mm3 (0.9-3.2); Lymphocytes Percent Auto 20.9 % (18.3-44.2); Mean Corpuscular HGB Conc 30.5 g/dl (32-36); Mean Corpuscular Hemoglobin 32.3 pg (26-34); Mean Corpuscular Volume 105.8 fl (80-100); Mean Platelet Volume 9.1 fl (7.4-10.4); Monocytes Absolute Auto 0.5 K/mm3 (0.1-0.6); Monocytes Percent Auto 7.8 % (2.6-8.5); Neutrophils Absolute Auto 4.1 K/mm3 (1.3-6.7); Neutrophils Percent Auto 65.6 % (45.5-73.1); Platelet Count Result 356 k/mm3 (150-375); Red Blood Count 3.47 M/mm3 (4.2-5.4); Red Cell Distribution Width 14.1 % (11.5-14.5); White Blood Count 6.2 K/mm3 (4.5-10.0)
[2024-09-25 06:03] LABS: Alanine Aminotransferase 22 U/L (6-35); Albumin Level 3.6 g/dL (3.5-5.1); Alkaline Phosphatase 122 U/L (38-126); Anion Gap 8 mmol/L (4-12); Aspartate Amino Transferase 30 U/L (14-36); Bilirubin,Total 0.6 mg/dL (0.2-1.3); Blood Urea Nitrogen 26 mg/dL (7-17); Calcium 8.4 mg/dL (8.4-10.2); Carbon Dioxide 28 mmol/L (22-30); Chloride 98 mmol/L (98-107); Estimated CRCL calculation 50 ml/min; Estimated Glomerular Filt Rate 54; Glucose 103 mg/dL (65-110); Potassium 3.7 mmol/L (3.4-5.0); Sodium 134 mmol/L (137-145)
[2024-09-25 06:04] LABS: INR 1.3; Prothrombin Time 16.6 Seconds (11.1-14.7)
[2024-09-25 06:05] LABS: Partial Thromboplastin Time 44.7 Seconds (22.3-36.8)
[2024-09-25 06:34] LABS: Macrocytosis 1+ (NORMAL); Platelet Estimate Adequate (Adequate); Schistocytes None Seen
[2024-09-25 08:12] LABS: Glucose Point of Care 112 mg/dl (65-105)
[2024-09-25] MEDS: FLUTICASONE/SALMETEROL 45-21 MCG INHALER 1 PUFF 2 PUFF INHALATION ×2 (08:14→20:10)
[2024-09-25] MEDS: ALBUTEROL SULFATE NEB 2.5 MG/3 ML INH INHALATION ×2 (08:14→20:11)
--- NOTE | 2024-09-25 08:15 | P.PNIM_ITS ---
Progress Note: A&P Assessment and Plan (1) Chronic respiratory failure with hypoxia: Code(s): J96.11 - Chronic respiratory failure with hypoxia Status: Acute Assessment and Plan: * Patient is on 3-4 L at rest, with exertion and at night. * She has a high SpO2 on 3LNC with Sa02 98%. * Wean O2 as tolerated to keep SpO2>92%. * Follow (2) CHF exacerbation: Code(s): I50.9 - Heart failure, unspecified Status: Acute Assessment and Plan: Suspect acute on chronic diastolic CHF exacerbation and possibly pneumonia. Mildly elevated Trop related to CHF. - Symptoms: Shortness of breath. - Current medications: - Supportive treatment Tyl and ibu prn Nebs prn - Fluid restriction 1500 ml/day - Lasix 40 mg IV daily - BNP: 7300 - D dimer positive - Troponin mildly elevated at 0.039 -> 0.035. EKG showing AFib, RAD and Rt BBB. - AB.35/40/94 on 4 L. - Chest x-ray shows mild bibasilar pulmonary edema. - CTA was negative for PE but does show patchy airspace opacities in the right lower lobe suspicious for aspiration and/or pneumonia. - Echo: EF 62%, Grade III diastolic dysfxn, RVE, mild pHTN (54mmHg) - Monitor vital signs, I&Os, BUN/creatinine, daily weights, neuro status and patient is a fall risk - Monitor serum electrolytes, Keep serum Potassium>4 and serum Magnesium>2 and CBC (3) Pneumonia: Qualifiers: Aspiration pneumonia type: unspecified Laterality: bilateral Lung location: lower lobe of lung Pneumonia type: aspiration pneumonia Qualified Code(s): J69.0 - Pneumonitis due to inhalation of food and vomit Code(s): J18.9 - Pneumonia, unspecified organism Status: Acute Assessment and Plan: - Chest x-ray shows mild bibasilar pulmonary edema. - CTA was negative for PE but does show patchy airspace opacities in the right lower lobe suspicious for aspiration and/or pneumonia. - Complicating Factors: CHF exacerbation and COPD on chronic O2 supplementation - Antibiotics: Augmentin and doxycycline, course to be completed on 09/26 - Viral PCR: negative for Flu/COVID/RSV - Sputum culture: Normal oropharyngeal maria luz - MRSA negative - supportive treatment - Monitor vital signs, I&Os, neuro status and patient is a fall risk - Follow WBC, serum electrolytes, temperature curves and cultures - Speech eval showing no concerns. She did recommend Easy to chew Level 7 which was ordered. * Since aspiration less likely, will stop Flagyl. De-escalate abx and change to oral (4) DVT (deep venous thrombosis): Code(s): I82.409 - Acute embolism and thrombosis of unspecified deep veins of unspecified lower extremity Status: Acute Assessment and Plan: Patient has ethan off her Eliquis prior to admission, unable to afford Eliquis or Xarelto - INR 1.3 on am labs - Doppler showing below the knee DVT right peroneal veins. - Start Lovenox 100 mg subq q12. Will need to stay on Lovenox for a day after patient reaches INR of 2-3 then in can be discontinued with patient receiving only Warfarin. - Started Warfarin 5 mg PO qpm on 09/23, dose increased to 7.5 mg on 09/25. Goal 2-3. Patient will need set up for INR testing at discharge. (5) Abdominal pain: Code(s): R10.9 - Unspecified abdominal pain Status: Acute Assessment and Plan: Severe abdominal pain directly after eating. Possible etiology includes duodenal vs peptic ulcer vs other. Patient is s/p cholecystectomy. Had a gastric bypass in the 2007. - CTA abdomen/pelvis: 1. Nonspecific diarrhea with no obstruction or abnormal bowel wall thickening. 2. Small amount of scattered atherosclerotic plaque along the normal caliber abdominal aorta. No evaluation significant stenosis and several of its branches with no hemodynamically significant stenosis seen at the celiac axis, superior or inferior mesenteric arteries. 3. Mild cardiomegaly. 4. Small sliding-type hiatal hernia. 5. Cirrhosis. - GI consulted (6) UTI (urinary tract infection): Qualifiers: Hematuria presence: without hematuria Urinary tract infection type: site unspecified Qualified Code(s): N39.0 - Urinary tract infection, site not specified Code(s): N39.0 - Urinary tract infection, site not specified Status: Acute Assessment and Plan: UA is concerning for UTI. UCx collected. Rocephin started. UCx EColi that is relatively sterling-sensitive. Changed to Augmentin to complete a course (7) Macrocytic anemia: Code(s): D53.9 - Nutritional anemia, unspecified Status: Acute Assessment and Plan: Patient with chronic anemia in the past but more recently her hemoglobin was 13 in April. Hemoglobin 10.2 on admission with macrocytosis. - H/H 12/39.4 on am labs - Iron studies showed normal iron and TIBC with saturation of 12%. Ferritin normal at 67. - B12 level low at 189 with a normal folate. - Patient with B12 deficiency. Iron stores (Ferritin <100)are low as well. - Replaced B12. Iron replacement as well. - TSH normal. - Monitor H&H and transfuse as necessary. (8) Chronic atrial fibrillation: Code(s): I48.20 - Chronic atrial fibrillation, unspecified Status: Acute Assessment and Plan: Chronic atrial fibrillation. Echo as above. - She is not on Eliquis despite high [id number] score of 7. - Started on Lovenox 100 mg subq q12. Will need to stay on Lovenox for a day after patient reaches INR of 2-3 then in can be discontinued with patient rec eiving only Warfarin. - Started Warfarin 5 mg PO qpm on 09/23, dose increased to 7.5 mg on 09/25. Goal 2-3. Patient will need set up for INR testing at discharge. (9) Chronic obstructive pulmonary disease: Code(s): J44.9 - Chronic obstructive pulmonary disease, unspecified Status: Acute Assessment and Plan: - Continue bronchodilators. - Continue Advair. (10) Hypertension: Qualifiers: Hypertension type: essential hypertension Qualified Code(s): I10 - Essential (primary) hypertension Code(s): I10 - Essential (primary) hypertension Status: Acute Assessment and Plan: Chronic, blood pressure was poorly controlled. Home medications were resumed. - Coreg 6.25 mg BID - Hydralazine 10 mg BID - Losartan 100 mg daily - Spironolactone 25 mg daily, potassium level WNL on am labs. - Will continue to monitor (11) Hypothyroidism (acquired): Code(s): E03.9 - Hypothyroidism, unspecified Status: Acute Assessment and Plan: * TSH normal. * Continue levothyroxine. (12) Type 2 diabetes mellitus: Code(s): E11.9 - Type 2 diabetes mellitus without complications Status: Acute Assessment and Plan: * A1c 5.4%. The patient's blood glucose was reviewed on 09/21 * Glucose remains well controlled. * Continue AccuCheks covering with sliding scale. Hypoglycemia protocol available as needed. * Continue to monitor (13) Obstructive sleep apnea: Code(s): G47.33 - Obstructive sleep apnea (adult) (pediatric) Status: Acute Assessment and Plan: * Patient states she is compliant with BiPAP at night. 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 Spent With Patient Time with patient: 25 - 35 minutes Subjective Date/time seen: 09/25/24 08:15 Interval history: 79-year-old female with multiple medical problems including chronic respiratory failure on home oxygen, obstructive sleep apnea, chronic obstructive pulmonary disease, pulmonary hypertension, heart failure with preserved ejection fraction, chronic atrial fibrillation for which she is prescribed anticoagulation however she has not been taking it for a couple of months due to cost, chronic anemia, and anxiety who presented to the emergency department via EMS from home for evaluation of shortness of breath. Patient is pleasant lying comfortably in bed. She has no complaints at this time denying chest pain, shortness a breath, nausea/vomiting and abdominal pain at time of assessment. patient notes that she has been having severe abdominal pain after eating which last about 30 minutes to an hour before subsiding. She denies any nausea /vomiting at that time but does note increased dizziness. GI has been consulted for possible ulcer. Review of Systems Review of Systems: All systems reviewed & are unremarkable except as noted in HPI and below Exam Narrative: AF HR 68 RR 18 SpO2 98 3L NC BP 107/50 General: female in no acute respiratory distress who is nontoxic appearing, lying semi recumbent in bed. HEENT: Normocephalic. Atraumatic. Extraocular movement intact. Sclera clear and anicteric. No facial asymmetry. Chest: Lungs are diminished to auscultation bilaterally. No wheezes or crackles. CV: Heart was regular rate. S1-S2. No murmurs, gallops, or rubs. Abd: Abdomen was soft. Mild epigastric tenderness. Nondistended. Positive bowel sounds. No organomegaly or masses. Ext: No clubbing, cyanosis, or edema. 2+ DP pulses bilaterally. Neuro: Patient is alert and oriented x3. Cranial nerves 2-12 are intact. Speech is clear. Objective Data Vital Signs Vital Signs: Vital Signs - 24 hr 09/24/24 08:57 09/24/24 13:37 09/24/24 14:30 Temperature 97.5 F L Pulse Rate 70 74 69 Respiratory Rate 18 16 Blood Pressure 130/60 Pulse Oximetry 99 Oxygen Delivery Oxygen Flow Rate Fraction of Inspired Oxygen 09/24/24 20:20 09/24/24 20:33 09/24/24 20:30 Temperature Pulse Rate 72 73 Respiratory Rate 18 18 Blood Pressure Pulse Oximetry 96 Oxygen Delivery Nasal Cannula Oxygen Flow Rate 3 Fraction of Inspired Oxygen 09/24/24 20:00 09/24/24 20:00 09/24/24 23:24 Temperature 97.8 F 97.6 F Pulse Rate 70 73 77 Respiratory Rate 16 18 20 Blood Pressure 126/52 L 128/58 L Pulse Oximetry 99 96 100 Oxygen Delivery Nasal Cannula Oxygen Flow Rate 3 Fraction of Inspired Oxygen 36 09/25/24 04:00 09/24/24 22:30 Temperature 97.6 F Pulse Rate 86 75 Respiratory Rate 16 17 Blood Pressure 117/67 Pulse Oximetry 100 99 Oxygen Delivery Autopap Oxygen Flow Rate Fraction of Inspired Oxygen Intake/Output Intake/Output: Intake & Output 09/22/24 09/23/24 09/24/24 09/25/24 23:59 23:59 23:59 23:59 Intake Total 1260 1692 1182 300 Output Total 2500 951 650 Balance 1260 -808 231 -350 Meds/Results Medications: Active Medications Generic Name Dose Route Start Last Admin Trade Name Freq PRN Reason Stop Dose Admin Acetaminophen 650 mg 09/19/24 22:21 09/24/24 21:11 Acetaminophen 325 Mg Tablet PO 650 mg Q6H PRN Administration Mild Pain (1-3) or Fever Hydrocodone Bitart/Acetaminophen 1 tab 09/19/24 16:27 09/25/24 02:58 Hydrocodone/Acetaminophen (*Crx) 10-325 Mg Tablet PO 1 tab Q6H PRN Administration Pain Rated 4-6 Albuterol 1 - 2 puff 09/19/24 16:27 Albuterol Sulfate (*Sp) Aerosol 1 Puff INHALATION Q4-6H PRN Shortness Of Breath Albuterol 2.5 mg 09/20/24 12:00 09/25/24 08:14 Albuterol Sulfate Neb 2.5 Mg/3 Ml Inh INHALATION 2.5 mg QIDRT ERICKSON Administration Alprazolam 0.5 mg 09/19/24 21:00 09/24/24 21:11 Alprazolam (*Crx) 0.5 Mg Tablet PO 0.5 mg Q12HR ERICKSON Administration Amoxicillin/Clavulanate Potassium 1 tablet 09/21/24 21:00 09/24/24 21:11 Amoxicillin/Clavulanate K 875-125 Mg Tab PO 09/26/24 21:01 1 tablet Q12HR ERICKSON Administration Aspirin 81 mg 09/20/24 09:00 09/24/24 08:57 Aspirin 81 Mg Enteric Tablet PO 81 mg QAM ERICKSON Administration Atorvastatin Calcium 20 mg 09/19/24 21:00 09/24/24 21:11 Atorvastatin 20 Mg Tablet PO 20 mg QHS ERICKSON Administration Carvedilol 6.25 mg 09/19/24 21:00 09/24/24 21:11 Carvedilol 6.25 Mg Tablet PO 6.25 mg Q12HR ERICKSON Administration Cyanocobalamin 1,000 mcg 09/21/24 09:00 09/24/24 08:57 Cyanocobalamin 1,000 Mcg Tablet PO 1,000 mcg QAM ERICKSON Administration Dextrose 12.5 gm 09/19/24 22:21 Dextrose 50% 25 Gm/50 Ml Syringe IV PUSH PRN PRN Hypoglycemia Protocol Doxycycline Hyclate 100 mg 09/20/24 10:25 09/24/24 21:11 Doxycycline Hyclate 100 Mg Tablet PO 09/26/24 21:01 100 mg Q12HR ERICKSON Administration Enoxaparin Sodium 105 mg 09/24/24 09:00 09/24/24 21:12 Enoxaparin 120 Mg/0.8 Ml Syringe SUB-Q 105 mg Q12H ERICKSON Administration Erythromycin 1 applic 09/20/24 22:30 09/25/24 05:32 Erythromycin Ophth Ointment 1 Gm Tube EACH EYE 09/27/24 22:29 1 applic Q4HWA ERICKSON Administration Ferrous Sulfate 325 mg 09/21/24 09:00 09/24/24 08:57 Ferrous Sulfate [address] PO 325 mg DAILY ERICKSON Administration Furosemide 40 mg 09/19/24 17:00 09/24/24 16:39 Furosemide Inj 40 Mg/4 Ml Vial IV PUSH 40 mg BID ERICKSON Administration Glucagon 1 mg 09/19/24 22:21 Glucagon For Inj 1 Mg Vial IM PRN PRN Hypoglycemia Protocol Glucose 15 gm 09/19/24 22:21 Glucose Oral Gel 15 Gm Of Glucse In 37.5 Gm Tube PO PRN PRN Hypoglycemia Protocol Hydralazine HCl 10 mg 09/19/24 17:00 09/24/24 16:39 Hydralazine 10 Mg Tablet PO 10 mg BID ERICKSON Administration Dextrose 1,000 mls @ 100 mls/hr 09/19/24 22:21 Dextrose 5% 1,000 Ml IVPB PRN PRN Hypoglycemia Protocol Insulin Aspart 3 - 6 units 09/20/24 08:00 09/24/24 17:15 Insulin Aspart (*Bkc) 100 Units/Ml SUB-Q Not Given TIDWM ERICKSON Protocol Insulin Aspart 1 - 3 units 09/20/24 21:00 09/24/24 21:06 Insulin Aspart (*Bkc) 100 Units/Ml SUB-Q Not Given HS ERICKSON Protocol Levothyroxine Sodium 112 mcg 09/20/24 06:30 09/25/24 05:33 Levothyroxine Sodium 112 Mcg Tablet PO 112 mcg DAILY@0630 ERICKSON Administration Losartan Potassium 100 mg 09/20/24 09:00 09/24/24 08:58 Losartan Potassium 100 Mg Tablet PO 100 mg DAILY ERICKSON Administration Miscellaneous Information 0 each 09/19/24 00:01 09/25/24 07:38 Albuterol Nebs And Hfa Both Ordered - Please Specify When To Use Each Or Discontinue One XX 10/19/24 00:00 Not Given CLARIFY ERICKSON Nitroglycerin 0.4 mg 09/19/24 23:36 09/20/24 07:43 Nitroglycerin Sl 0.4 Mg Tablet SUBLINGUAL 0.4 mg Q5MIN PRN Administration Chest Pain Pantoprazole Sodium 40 mg 09/20/24 09:00 09/24/24 08:58 Pantoprazole 40 Mg Tablet PO 40 mg DAILY ERICKSON Administration Fluticasone/Salmeterol 2 puff 09/20/24 20:00 09/25/24 08:14 Fluticasone/Salmeterol 45-21 Mcg Inhaler 1 Puff INHALATION 2 puff Q12HRT ERICKSON Administration Spironolactone 25 mg 09/20/24 09:00 09/20/24 10:35 Spironolactone 25 Mg Tablet PO Not Given DAILY ERICKSON Warfarin Sodium 5 mg 09/23/24 17:00 09/24/24 16:39 Warfarin (*Pbkc) 5 Mg Tablet PO 5 mg DAILY@1700 ERICKSON Administration Radiology Results: ITS Impressions Chest X-Ray 09/19/24 10:09 Impression: Probable mild bibasilar pulmonary edema and central congestive change. Chest CTA 09/20/24 08:07 IMPRESSION: 1. No pulmonary collision. 2. Patchy airspace opacities in the right lower lobe which suspicious for aspiration and/or pneumonia. 3. Mild emphysema. 4. Very small right pleural effusion. 5. Cardiomegaly. 6. Enlargement of the central pulmonary arteries consistent with pulmonary arterial hypertension. 7. Small sliding-type hiatal hernia with change of Michelle-en-Y gastric bypass procedure. Venous Doppler Study 09/20/24 13:07 IMPRESSION: 1. [id number] deep venous thrombosis in the right peroneal veins. Findings were discussed with Nicole Barragan, the nurse caring for the patient, at 1:12 PM. 2. No deep venous thrombosis in the left lower limb. Modified Barium Swallow 09/20/24 13:27 IMPRESSION: Patient tolerated regular consistency oral feedings in the upright position. Please correlate with speech pathologist findings and specific fee ding recommendations. Abdomen/Pelvis CTA 09/24/24 15:13 IMPRESSION: 1. Nonspecific diarrhea with no obstruction or abnormal bowel wall thickening. 2. Small amount of scattered atherosclerotic plaque along the normal caliber abdominal aorta. No evaluation significant stenosis and several of its branches with no hemodynamically significant stenosis seen at the celiac axis, superior or inferior mesenteric arteries. 3. Mild cardiomegaly. 4. Small sliding-type hiatal hernia. 5. Cirrhosis. Labs Labs: Laboratory Results - last 24 hr 09/24/24 09/24/24 09/24/24 05:19 08:14 12:10 WBC RBC Hgb Hct MCV MCH MCHC RDW Plt Count MPV Immature Gran % (Auto) Neut % (Auto) Lymph % (Auto) [place] % (Auto) Eos % (Auto) Baso % (Auto) Lymph # (Auto) [place] # (Auto) Eos # (Auto) Baso # (Auto) Abs Immat Gran (auto) Absolute Neuts (auto) Absolute Nucleated RBC Nucleated RBC % Platelet Estimate Macrocytosis Schistocytes PT INR APTT Sodium Potassium Chloride Carbon Dioxide Anion Gap BUN Creatinine Estim Creat Clear Calc Estimated GFR Glucose POC Capillary Glucose 108 H 97 Calcium Total Bilirubin AST ALT Alkaline Phosphatase Total Protein Albumin Lipase 106 09/24/24 09/24/24 09/25/24 16:54 21:01 05:18 WBC 6.2 RBC 3.47 L Hgb 11.2 L Hct 36.7 L MCV 105.8 H MCH 32.3 MCHC 30.5 L RDW 14.1 Plt Count 356 MPV 9.1 Immature Gran % (Auto) 0.2 Neut % (Auto) 65.6 Lymph % (Auto) 20.9 [place] % (Auto) 7.8 Eos % (Auto) 4.0 Baso % (Auto) 1.5 H Lymph # (Auto) 1.29 [place] # (Auto) 0.5 Eos # (Auto) 0.3 Baso # (Auto) 0.1 Abs Immat Gran (auto) 0.01 Absolute Neuts (auto) 4.1 Absolute Nucleated RBC 0.000 Nucleated RBC % 0.0 Platelet Estimate Adequate Macrocytosis 1+ Schistocytes None seen PT 16.6 H INR 1.3 APTT 44.7 H Sodium 134 L Potassium 3.7 Chloride 98 Carbon Dioxide 28 Anion Gap 8 BUN 26 H Creatinine 1.00 Estim Creat Clear Calc 50 Estimated GFR 54 L Glucose 103 POC Capillary Glucose 104 118 H Calcium 8.4 Total Bilirubin 0.6 AST 30 ALT 22 Alkaline Phosphatase 122 Total Protein 6.0 L Albumin 3.6 Lipase 09/25/24 08:07 WBC RBC Hgb Hct MCV MCH MCHC RDW Plt Count MPV Immature Gran % (Auto) Neut % (Auto) Lymph % (Auto) [place] % (Auto) Eos % (Auto) Baso % (Auto) Lymph # (Auto) [place] # (Auto) Eos # (Auto) Baso # (Auto) Abs Immat Gran (auto) Absolute Neuts (auto) Absolute Nucleated RBC Nucleated RBC % Platelet Estimate Macrocytosis Schistocytes PT INR APTT Sodium Potassium Chloride Carbon Dioxide Anion Gap BUN Creatinine Estim Creat Clear Calc Estimated GFR Glucose POC Capillary Glucose 112 H Calcium Total Bilirubin AST ALT Alkaline Phosphatase Total Protein Albumin Lipase Quality VTE Prophylaxis VTE prophylaxis: pharmacologic ordered
[2024-09-25] MEDS: LOSARTAN POTASSIUM 100 MG TABLET PO (09:08)
[2024-09-25] MEDS: ALPRAZolam (*CRX) 0.5 MG TABLET PO ×2 (09:08→22:19)
[2024-09-25] MEDS: ASPIRIN 81 MG ENTERIC TABLET PO (09:09)
[2024-09-25] MEDS: carvediloL 6.25 MG TABLET PO (09:09)
[2024-09-25] MEDS: AMOXICILLIN/CLAVULANATE K 875-125 MG TAB 1 TABLET PO ×2 (09:09→21:08)
[2024-09-25] MEDS: FERROUS SULFATE 325 MG TABLET DR PO (09:09)
[2024-09-25] MEDS: DOXYCYCLINE HYCLATE 100 MG TABLET PO ×2 (09:09→21:05)
[2024-09-25] MEDS: PANTOPRAZOLE 40 MG TABLET PO (09:09)
[2024-09-25] MEDS: hydrALAZINE 10 MG TABLET PO (09:09)
[2024-09-25] MEDS: CYANOCOBALAMIN 1,000 MCG TABLET 1000 MCG PO (09:09)
[2024-09-25] MEDS: ENOXAPARIN 120 MG/0.8 ML SYRINGE 105 MG SUB-Q ×2 (09:12→21:14)
[2024-09-25] MEDS: FUROSEMIDE INJ 40 MG/4 ML VIAL IV PUSH (09:12)
[2024-09-25 12:05] LABS: Glucose Point of Care 122 mg/dl (65-105)
[2024-09-25 16:58] LABS: Glucose Point of Care 92 mg/dl (65-105)
[2024-09-25] MEDS: WARFARIN (*PBKC) 7.5 MG TABLET PO (17:14)
--- NOTE | 2024-09-25 17:14 | PCRCNOTE ---
Procedure explained to patient, verbalized understanding. X-Ray procedure completed, patient tolerated well. Returned to room per [ ]
--- NOTE | 2024-09-25 17:14 | PCRCNOTE ---
Window of time for administration has passed. See next scheduled administration.
[2024-09-25 17:24] LABS: Pneumococcal Antigen Urine NOT DETECTED
[2024-09-25] MEDS: ACETAMINOPHEN 325 MG TABLET 650 MG PO (17:44)
[2024-09-25 20:15] LABS: Glucose Point of Care 110 mg/dl (65-105)
[2024-09-25] MEDS: ATORVASTATIN 20 MG TABLET PO (21:04)
[2024-09-25] MEDS: WATER FOR IRRIGATION, STERILE 1,000 ML BOTTLE 1000 ML (23:28)
[2024-09-26] VITALS (18 sets, daily range): BP systolic 79–110; BP diastolic 51–62; PULSE 67–76; RESP 16–18; TEMP 36.2–36.4; O2SAT 95–100
[2024-09-26] MEDS: HYDROcodone/acetaminophen (*CRX) 10-325 MG TABLET 1 TAB PO ×4 (04:21→23:48)
[2024-09-26] MEDS: ERYTHROMYCIN OPHTH OINTMENT 1 GM TUBE 1 APPLIC EACH EYE ×5 (04:21→20:41)
[2024-09-26 05:14] LABS: Basophils Absolute Auto 0.1 K/mm3 (0.0-0.1); Eosinophils Absolute Auto 0.3 K/mm3 (0-0.3); Eosinophils Percent Auto 4.3 % (0-4.4); Hematocrit 36.1 % (37.0-47.0); Hemoglobin 11.4 g/dL (12.0-15.0); Immature Granulocyte Absolute 0.02 K/mm3 (0.00-0.031); Immature Granulocyte Percent A 0.3 % (0-0.5); Lymphocytes Absolute Auto 1.66 K/mm3 (0.9-3.2); Lymphocytes Percent Auto 26.4 % (18.3-44.2); Mean Corpuscular HGB Conc 31.6 g/dl (32-36); Mean Corpuscular Hemoglobin 33.4 pg (26-34); Mean Corpuscular Volume 105.9 fl (80-100); Mean Platelet Volume 9.1 fl (7.4-10.4); Monocytes Absolute Auto 0.5 K/mm3 (0.1-0.6); Monocytes Percent Auto 7.3 % (2.6-8.5); Neutrophils Absolute Auto 3.8 K/mm3 (1.3-6.7); Neutrophils Percent Auto 60.7 % (45.5-73.1); Platelet Count Result 368 k/mm3 (150-375); Red Blood Count 3.41 M/mm3 (4.2-5.4); Red Cell Distribution Width 14.2 % (11.5-14.5); White Blood Count 6.3 K/mm3 (4.5-10.0)
[2024-09-26 05:23] LABS: INR 1.4; Prothrombin Time 17.3 Seconds (11.1-14.7)
[2024-09-26 05:24] LABS: Partial Thromboplastin Time 46.7 Seconds (22.3-36.8)
[2024-09-26 05:29] LABS: Alanine Aminotransferase 21 U/L (6-35); Albumin Level 3.9 g/dL (3.5-5.1); Alkaline Phosphatase 126 U/L (38-126); Anion Gap 7 mmol/L (4-12); Aspartate Amino Transferase 30 U/L (14-36); Bilirubin,Total 0.5 mg/dL (0.2-1.3); Blood Urea Nitrogen 27 mg/dL (7-17); Calcium 8.8 mg/dL (8.4-10.2); Carbon Dioxide 31 mmol/L (22-30); Chloride 97 mmol/L (98-107); Estimated CRCL calculation 50 ml/min; Estimated Glomerular Filt Rate 54; Glucose 97 mg/dL (65-110); Potassium 3.9 mmol/L (3.4-5.0); Sodium 135 mmol/L (137-145)
[2024-09-26 05:33] LABS: Ovalocytes 1+; Platelet Estimate Adequate (Adequate); Schistocytes None Seen
[2024-09-26] MEDS: LEVOTHYROXINE SODIUM 112 MCG TABLET PO (05:56)
--- NOTE | 2024-09-26 06:50 | PM.IMPN ---
Progress Note: A&P Assessment and Plan (1) Chronic respiratory failure with hypoxia: Code(s): J96.11 - Chronic respiratory failure with hypoxia Status: Acute Assessment and Plan: Patient is on 3-4 L at rest, with exertion and at night. She has a high SpO2 on 3LNC with Sa02 98%. Wean O2 as tolerated to keep SpO2>92%. Follow (2) CHF exacerbation: Code(s): I50.9 - Heart failure, unspecified Status: Acute Assessment and Plan: Suspect acute on chronic diastolic CHF exacerbation and possibly pneumonia. Mildly elevated Trop related to CHF. - Symptoms: Shortness of breath. - Current medications: - Supportive treatment Tyl and ibu prn Nebs prn - Fluid restriction 1500 ml/day - Lasix 40 mg IV daily - BNP: 7300 - D dimer positive - Troponin mildly elevated at 0.039 -> 0.035. EKG showing AFib, RAD and Rt BBB. - AB.35/40/94 on 4 L. - Chest x-ray shows mild bibasilar pulmonary edema. - CTA was negative for PE but does show patchy airspace opacities in the right lower lobe suspicious for aspiration and/or pneumonia. - Echo: EF 62%, Grade III diastolic dysfxn, RVE, mild pHTN (54mmHg) - Monitor vital signs, I&Os, BUN/creatinine, daily weights, neuro status and patient is a fall risk - Monitor serum electrolytes, Keep serum Potassium>4 and serum Magnesium>2 and CBC (3) Pneumonia: Qualifiers: Aspiration pneumonia type: unspecified Laterality: bilateral Lung location: lower lobe of lung Pneumonia type: aspiration pneumonia Qualified Code(s): J69.0 - Pneumonitis due to inhalation of food and vomit Code(s): J18.9 - Pneumonia, unspecified organism Status: Acute Assessment and Plan: - Chest x-ray shows mild bibasilar pulmonary edema. - CTA was negative for PE but does show patchy airspace opacities in the right lower lobe suspicious for aspiration and/or pneumonia. - Complicating Factors: CHF exacerbation and COPD on chronic O2 supplementation - Antibiotics: Augmentin and doxycycline, course to be completed on 09/26 - Viral PCR: negative for Flu/COVID/RSV - Sputum culture: Normal oropharyngeal maria luz - MRSA negative - supportive treatment - Monitor vital signs, I&Os, neuro status and patient is a fall risk - Follow WBC, serum electrolytes, temperature curves and cultures - Speech eval showing no concerns. She did recommend Easy to chew Level 7 which was ordered. Since aspiration less likely, will stop Flagyl. De-escalate abx and change to oral (4) DVT (deep venous thrombosis): Code(s): I82.409 - Acute embolism and thrombosis of unspecified deep veins of unspecified lower extremity Status: Acute Assessment and Plan: Patient has ethan off her Eliquis prior to admission, unable to afford Eliquis or Xarelto - INR 1.4 on am labs - Doppler showing below the knee DVT right peroneal veins. - Start Lovenox 100 mg subq q12. Will need to stay on Lovenox for a day after patient reaches INR of 2-3 then in can be discontinued with patient receiving only Warfarin. - Started Warfarin 5 mg PO qpm on 09/23, dose increased to 7.5 mg on 09/25. Goal 2-3. Patient will need set up for INR testing at discharge. (5) Abdominal pain: Code(s): R10.9 - Unspecified abdominal pain Status: Acute Assessment and Plan: Severe abdominal pain directly after eating. Possible etiology includes duodenal vs peptic ulcer vs gas build up 2/2 aerophagia from COPD vs other. Patient is s/p cholecystectomy. Had a gastric bypass in the 2007. - CTA abdomen/pelvis: 1. Nonspecific diarrhea with no obstruction or abnormal bowel wall thickening. 2. Small amount of scattered atherosclerotic plaque along the normal caliber abdominal aorta. No evaluation significant stenosis and several of its branches with no hemodynamically significant stenosis seen at the celiac axis, superior or inferior mesenteric arteries. 3. Mild cardiomegaly. 4. Small sliding-type hiatal hernia. 5. Cirrhosis. - GI consulted Plan for EGD on Sunday afternoon Started on Bentyl TIDWM (6) UTI (urinary tract infection): Qualifiers: Hematuria presence: without hematuria Urinary tract infection type: site unspecified Qualified Code(s): N39.0 - Urinary tract infection, site not specified Code(s): N39.0 - Urinary tract infection, site not specified Status: Acute Assessment and Plan: UA is concerning for UTI. UCx collected. Rocephin started. UCx EColi that is relatively sterling-sensitive. Changed to Augmentin to complete a course (7) Macrocytic anemia: Code(s): D53.9 - Nutritional anemia, unspecified Status: Acute Assessment and Plan: Patient with chronic anemia in the past but more recently her hemoglobin was 13 in April. Hemoglobin 10.2 on admission with macrocytosis. - H/H 11.4/36.1 on am labs - Iron studies showed normal iron and TIBC with saturation of 12%. Ferritin normal at 67. - B12 level low at 189 with a normal folate. - Patient with B12 deficiency. Iron stores (Ferritin <100)are low as well. - Replaced B12. Iron replacement as well. - TSH normal. - Monitor H&H and transfuse as necessary. (8) Chronic atrial fibrillation: Code(s): I48.20 - Chronic atrial fibrillation, unspecified Status: Acute Assessment and Plan: Chronic atrial fibrillation. Echo as above. - She is not on Eliquis despite high [id number] score of 7. - Started on Lovenox 100 mg subq q12. Will need to stay on Lovenox for a day after patient reaches INR of 2-3 then in can be discontinued with patient receiving only Warfarin. - Started Warfarin 5 mg PO qpm on 09/23, dose increased to 7.5 mg on 09/25. Goal 2-3. Patient will need set up for INR testing at discharge. (9) Chronic obstructive pulmonary disease: Code(s): J44.9 - Chronic obstructive pulmonary disease, unspecified Status: Acute Assessment and Plan: - Continue bronchodilators. - Continue Advair. (10) Hypertension: Qualifiers: Hypertension type: essential hypertension Qualified Code(s): I10 - Essential (primary) hypertension Code(s): I10 - Essential (primary) hypertension Status: Acute Assessment and Plan: Chronic, blood pressure was poorly controlled. Home medications were resumed. - Coreg 6.25 mg BID - Hydralazine 10 mg BID - Losartan 100 mg daily, decreased to 50 mg daily given that patient has been consistently hypotensive into the 90s systolic - Spironolactone 25 mg daily, potassium level WNL on am labs. - Will continue to monitor (11) Hypothyroidism (acquired): Code(s): E03.9 - Hypothyroidism, unspecified Status: Acute Assessment and Plan: TSH normal. Continue levothyroxine. (12) Type 2 diabetes mellitus: Code(s): E11.9 - Type 2 diabetes mellitus without complications Status: Acute Assessment and Plan: A1c 5.4%. The patient's blood glucose was reviewed on 09/21 Glucose remains well controlled. Continue AccuCheks covering with sliding scale. Hypoglycemia protocol available as needed. Continue to monitor (13) Obstructive sleep apnea: Code(s): G47.33 - Obstructive sleep apnea (adult) (pediatric) Status: Acute Assessment and Plan: Patient states she is compliant with BiPAP at night. 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 Spent With Patient Time with patient: 25 - 35 minutes Subjective Date/time seen: 09/26/24 06:50 Interval history: 79-year-old female with multiple medical problems including chronic respiratory failure on home oxygen, obstructive sleep apnea, chronic obstructive pulmonary disease, pulmonary hypertension, heart failure with preserved ejection fraction, chronic atrial fibrillation for which she is prescribed anticoagulation however she has not been taking it for a couple of months due to cost, chronic anemia, and anxiety who presented to the emergency department via EMS from home for evaluation of shortness of breath. Patient is pleasant lying comfortably in her bed. She continues to endorse epigastric/right lower quadrant pain immediately following meals. GI was consulted and is planning to perform an EGD on Sunday. Given that patient has history of COPD on chronic oxygen is possible that patient's pain is more so related to gas buildup and has since been started on Bentyl as well. Patient has no other complaints denying chest pain, shortness a breath, palpitations, nausea /vomiting. Review of Systems Review of Systems: All systems reviewed & are unremarkable except as noted in HPI and below Exam Narrative: AF HR 69 RR 18 SPO2 99 3L NC (baseline) BP 110/58 General: female in no acute respiratory distress who is nontoxic appearing, lying semi recumbent in bed. HEENT: Normocephalic. Atraumatic. Extraocular movement intact. Sclera clear and anicteric. No facial asymmetry. Chest: Lungs are clear but diminished to auscultation bilaterally. No wheezes or crackles. CV: Heart was regular rate. S1-S2. No murmurs, gallops, or rubs. Abd: Abdomen was soft. Mild epigastric and RLQ tenderness. Nondistended. Positive bowel sounds. No organomegaly or masses. Ext: No clubbing, cyanosis, or edema. 2+ DP pulses bilaterally. Neuro: Patient is alert and oriented x3. Cranial nerves 2-12 are intact. Speech is clear. Objective Data Vital Signs Vital Signs: Vital Signs - 24 hr 09/25/24 08:17 09/25/24 08:18 09/25/24 08:00 Temperature 97.0 F L Pulse Rate 70 68 Respiratory Rate 18 18 Blood Pressure 107/50 L Pulse Oximetry 96 98 Oxygen Delivery Nasal Cannula Oxygen Flow Rate 3 09/25/24 09:09 09/25/24 12:00 09/25/24 16:00 Temperature 97.7 F 97.9 F Pulse Rate 60 62 66 Respiratory Rate 18 16 Blood Pressure 93/42 L 96/53 L Pulse Oximetry 100 100 Oxygen Delivery Oxygen Flow Rate 09/25/24 19:58 09/25/24 20:11 09/25/24 20:11 Temperature 97.6 F Pulse Rate 62 66 Respiratory Rate 18 16 Blood Pressure 96/53 L Pulse Oximetry 100 94 Oxygen Delivery Nasal Cannula Oxygen Flow Rate 3 09/25/24 20:23 09/25/24 20:00 09/25/24 22:15 Temperature Pulse Rate 69 Respiratory Rate 16 Blood Pressure 97/54 L Pulse Oximetry 94 Oxygen Delivery Nasal Cannula Oxygen Flow Rate 3 09/26/24 04:20 09/26/24 04:29 Temperature 97.3 F L Pulse Rate 76 Respiratory Rate 18 Blood Pressure 110/60 Pulse Oximetry 100 Oxygen Delivery Oxygen Flow Rate Intake/Output Intake/Output: Intake & Output 09/23/24 09/24/24 09/25/24 09/26/24 23:59 23:59 23:59 23:59 Intake Total 1692 1182 1150 150 Output Total 2500 951 700 Balance -808 231 450 150 Meds/Results Medications: Active Medications Generic Name Dose Route Start Last Admin Trade Name Freq PRN Reason Stop Dose Admin Acetaminophen 650 mg 09/19/24 22:21 09/25/24 17:44 Acetaminophen 325 Mg Tablet PO 650 mg Q6H PRN Administration Mild Pain (1-3) or Fever Hydrocodone Bitart/Acetaminophen 1 tab 09/19/24 16:27 09/26/24 04:21 Hydrocodone/Acetaminophen (*Crx) 10-325 Mg Tablet PO 1 tab Q6H PRN Administration Pain Rated 4-6 Albuterol 1 - 2 puff 09/19/24 16:27 Albuterol Sulfate (*Sp) Aerosol 1 Puff INHALATION Q4-6H PRN Shortness Of Breath Albuterol 2.5 mg 09/20/24 12:00 09/25/24 20:11 Albuterol Sulfate Neb 2.5 Mg/3 Ml Inh INHALATION 2.5 mg QIDRT ERICKSON Administration Alprazolam 0.5 mg 09/19/24 21:00 09/25/24 22:19 Alprazolam (*Crx) 0.5 Mg Tablet PO 0.5 mg Q12HR ERICKSON Administration Amoxicillin/Clavulanate Potassium 1 tablet 09/21/24 21:00 09/25/24 21:08 Amoxicillin/Clavulanate K 875-125 Mg Tab PO 09/26/24 21:01 1 tablet Q12HR ERICKSON Administration Aspirin 81 mg 09/20/24 09:00 09/25/24 09:09 Aspirin 81 Mg Enteric Tablet PO 81 mg QAM [facility] Administration Atorvastatin Calcium 20 mg 09/19/24 21:00 09/25/24 21:04 Atorvastatin 20 Mg Tablet PO 20 mg QHS ERICKSON Administration Carvedilol 6.25 mg 09/19/24 21:00 09/25/24 21:03 Carvedilol 6.25 Mg Tablet PO Not Given Q12HR [facility] Cyanocobalamin 1,000 mcg 09/21/24 09:00 09/25/24 09:09 Cyanocobalamin 1,000 Mcg Tablet PO 1,000 mcg QAM ERICKSON Administration Dextrose 12.5 gm 09/19/24 22:21 Dextrose 50% 25 Gm/50 Ml Syringe IV PUSH PRN PRN Hypoglycemia Protocol Doxycycline Hyclate 100 mg 09/20/24 10:25 09/25/24 21:05 Doxycycline Hyclate 100 Mg Tablet PO 09/26/24 21:01 100 mg Q12HR ERICKSON Administration Enoxaparin Sodium 105 mg 09/24/24 09:00 09/25/24 21:14 Enoxaparin 120 Mg/0.8 Ml Syringe SUB-Q 105 mg Q12H ERICKSON Administration Erythromycin 1 applic 09/20/24 22:30 09/26/24 04:21 Erythromycin Ophth Ointment 1 Gm Tube EACH EYE 09/27/24 22:29 1 applic Q4HWA ERICKSON Administration Ferrous Sulfate 325 mg 09/21/24 09:00 09/25/24 09:09 Ferrous Sulfate [address] PO 325 mg DAILY ERICKSON Administration Furosemide 40 mg 09/26/24 09:00 Furosemide Inj 40 Mg/4 Ml Vial IV PUSH DAILY ERICKSON Glucagon 1 mg 09/19/24 22:21 Glucagon For Inj 1 Mg Vial IM PRN PRN Hypoglycemia Protocol Glucose 15 gm 09/19/24 22:21 Glucose Oral Gel 15 Gm Of Glucse In 37.5 Gm Tube PO PRN PRN Hypoglycemia Protocol Hydralazine HCl 10 mg 09/19/24 17:00 09/25/24 17:14 Hydralazine 10 Mg Tablet PO Not Given BID ERICKSON Dextrose 1,000 mls @ 100 mls/hr 09/19/24 22:21 Dextrose 5% 1,000 Ml IVPB PRN PRN Hypoglycemia Protocol Insulin Aspart 3 - 6 units 09/20/24 08:00 09/25/24 17:15 Insulin Aspart (*Bkc) 100 Units/Ml SUB-Q Not Given TIDWM [facility] Protocol Insulin Aspart 1 - 3 units 09/20/24 21:00 09/25/24 21:08 Insulin Aspart (*Bkc) 100 Units/Ml SUB-Q Not Given HS ERICKSON Protocol Levothyroxine Sodium 112 mcg 09/20/24 06:30 09/26/24 05:56 Levothyroxine Sodium 112 Mcg Tablet PO 112 mcg DAILY@0630 ERICKSON Administration Losartan Potassium 100 mg 09/20/24 09:00 09/25/24 09:08 Losartan Potassium 100 Mg Tablet PO 100 mg DAILY ERICKSON Administration Miscellaneous Information 0 each 09/19/24 00:01 09/25/24 07:38 Albuterol Nebs And Hfa Both Ordered - Please Specify When To Use Each Or Discontinue One XX 10/19/24 00:00 Not Given CLARIFY ERICKSON Nitroglycerin 0.4 mg 09/19/24 23:36 09/20/24 07:43 Nitroglycerin Sl 0.4 Mg Tablet SUBLINGUAL 0.4 mg Q5MIN PRN Administration Chest Pain Pantoprazole Sodium 40 mg 09/20/24 09:00 09/25/24 09:09 Pantoprazole 40 Mg Tablet PO 40 mg DAILY ERICKSON Administration Fluticasone/Salmeterol 2 puff 09/20/24 20:00 09/25/24 20:10 Fluticasone/Salmeterol 45-21 Mcg Inhaler 1 Puff INHALATION 2 puff Q12HRT ERICKSON Administration Spironolactone 25 mg 09/20/24 09:00 09/20/24 10:35 Spironolactone 25 Mg Tablet PO Not Given DAILY [facility] Warfarin Sodium 7.5 mg 09/25/24 17:00 09/25/24 17:14 Warfarin (*Pbkc) 7.5 Mg Tablet PO 7.5 mg DAILY@1700 ERICKSON Administration Radiology Results: ITS Impressions Chest X-Ray 09/19/24 10:09 Impression: Probable mild bibasilar pulmonary edema and central congestive change. Chest CTA 09/20/24 08:07 IMPRESSION: 1. No pulmonary collision. 2. Patchy airspace opacities in the right lower lobe which suspicious for aspiration and/or pneumonia. 3. Mild emphysema. 4. Very small right pleural effusion. 5. Cardiomegaly. 6. Enlargement of the central pulmonary arteries consistent with pulmonary arterial hypertension. 7. Small sliding-type hiatal hernia with change of Michelle-en-Y gastric bypass procedure. Venous Doppler Study 09/20/24 13:07 IMPRESSION: 1. [id number] deep venous thrombosis in the right peroneal veins. Findings were discussed with Nicole Barragan, the nurse caring for the patient, at 1:12 PM. 2. No deep venous thrombosis in the left lower limb. Modified Barium Swallow 09/20/24 13:27 IMPRESSION: Patient tolerated regular consistency oral feedings in the upright position. Please correlate with speech pathologist findings and specific feeding recommendations. Abdomen/Pelvis CTA 09/24/24 15:13 IMPRESSION: 1. Nonspecific diarrhea with no obstruction or abnormal bowel wall thickening. 2. Small amount of scattered atherosclerotic plaque along the normal caliber abdominal aorta. No evaluation significant stenosis and several of its branches with no hemodynamically significant stenosis seen at the celiac axis, superior or inferior mesenteric arteries. 3. Mild cardiomegaly. 4. Small sliding-type hiatal hernia. 5. Cirrhosis. Labs Labs: Laboratory Results - last 24 hr 09/20/24 09/25/24 09/25/24 11:53 08:07 11:52 WBC RBC Hgb Hct MCV MCH MCHC RDW Plt Count MPV Immature Gran % (Auto) Neut % (Auto) Lymph % (Auto) Lake % (Auto) Eos % (Auto) Baso % (Auto) Lymph # (Auto) Lake # (Auto) Eos # (Auto) Baso # (Auto) Abs Immat Gran (auto) Absolute Neuts (auto) Absolute Nucleated RBC Nucleated RBC % Platelet Estimate Ovalocytes Schistocytes PT INR APTT Sodium Potassium Chloride Carbon Dioxide Anion Gap BUN Creatinine Estim Creat Clear Calc Estimated GFR Glucose POC Capillary Glucose 112 H 122 H Calcium Total Bilirubin AST ALT Alkaline Phosphatase Total Protein Albumin Urine Pneumococcal Ag Not detected 09/25/24 09/25/24 09/26/24 16:51 20:13 04:44 WBC 6.3 RBC 3.41 L Hgb 11.4 L Hct 36.1 L MCV 105.9 H MCH 33.4 MCHC 31.6 L RDW 14.2 Plt Count 368 MPV 9.1 Immature Gran % (Auto) 0.3 Neut % (Auto) 60.7 Lymph % (Auto) 26.4 Lake % (Auto) 7.3 Eos % (Auto) 4.3 Baso % (Auto) 1.0 Lymph # (Auto) 1.66 Lake # (Auto) 0.5 Eos # (Auto) 0.3 Baso # (Auto) 0.1 Abs Immat Gran (auto) 0.02 Absolute Neuts (auto) 3.8 Absolute Nucleated RBC 0.000 Nucleated RBC % 0.0 Platelet Estimate Adequate Ovalocytes 1+ Schistocytes None seen PT 17.3 H INR 1.4 APTT 46.7 H Sodium 135 L Potassium 3.9 Chloride 97 L Carbon Dioxide 31 H Anion Gap 7 BUN 27 H Creatinine 1.00 Estim Creat Clear Calc 50 Estimated GFR 54 L Glucose 97 POC Capillary Glucose 92 110 H Calcium 8.8 Total Bilirubin 0.5 AST 30 ALT 21 Alkaline Phosphatase 126 Total Protein 7.0 Albumin 3.9 Urine Pneumococcal Ag Quality VTE Prophylaxis VTE prophylaxis: pharmacologic ordered
[2024-09-26] MEDS: ALBUTEROL SULFATE NEB 2.5 MG/3 ML INH INHALATION ×3 (07:30→16:18)
[2024-09-26] MEDS: FLUTICASONE/SALMETEROL 45-21 MCG INHALER 1 PUFF 2 PUFF INHALATION (07:33)
[2024-09-26 08:14] LABS: Glucose Point of Care 103 mg/dl (65-105)
--- NOTE | 2024-09-26 08:17 | PCPTNOTE ---
Patient refused treatment this session due to back pain. Educated patient on the importance of PT, patient continued to refuse. RN aware.
[2024-09-26] MEDS: CYANOCOBALAMIN 1,000 MCG TABLET 1000 MCG PO (08:23)
[2024-09-26] MEDS: ALPRAZolam (*CRX) 0.5 MG TABLET PO ×2 (08:23→20:39)
[2024-09-26] MEDS: LOSARTAN POTASSIUM 100 MG TABLET PO (08:23)
[2024-09-26] MEDS: ASPIRIN 81 MG ENTERIC TABLET PO (08:23)
[2024-09-26] MEDS: ACETAMINOPHEN 325 MG TABLET 650 MG PO ×2 (08:23→20:38)
[2024-09-26] MEDS: carvediloL 6.25 MG TABLET PO ×2 (08:24→20:39)
[2024-09-26] MEDS: FERROUS SULFATE 325 MG TABLET DR PO (08:24)
[2024-09-26] MEDS: hydrALAZINE 10 MG TABLET PO (08:24)
[2024-09-26] MEDS: AMOXICILLIN/CLAVULANATE K 875-125 MG TAB 1 TABLET PO ×2 (08:24→20:39)
[2024-09-26] MEDS: DOXYCYCLINE HYCLATE 100 MG TABLET PO ×2 (08:24→20:39)
[2024-09-26] MEDS: PANTOPRAZOLE 40 MG TABLET PO (08:24)
[2024-09-26] MEDS: ENOXAPARIN 120 MG/0.8 ML SYRINGE 105 MG SUB-Q ×2 (08:34→20:46)
[2024-09-26] MEDS: FUROSEMIDE INJ 40 MG/4 ML VIAL IV PUSH (08:34)
--- NOTE | 2024-09-26 09:21 | P.CONGI_ITS ---
Assessment and Plan Assessment and plan (1) Abdominal pain: Code(s): R10.9 - Unspecified abdominal pain Status: Acute Assessment and Plan: Her postprandial abdominal pain can be technically classified as dyspepsia, however the location where she points primarily is atypical, and more suggestive of gas -related abdominal pain since it is located in the right lower quadrant. However, her anatomy might be altered because of previous surgeries. I will perform an EGD on Sunday afternoon, and for now I suggest using Oral dicyclomine 20-30 minutes before meals and watch her clinical response. GI Consult Note Consult date/time: 09/26/24 09:21 Reason for consult: abdominal pain HPI: Cheyenne Sawyer is a 79 year old female with a 3 month history of right lower quadrant abdominal pain 5-10 minutes after eating even a sandwich . The pain is severe enough to require her to lay down, and it lasts 20-30 minutes subsiding spontaneously. The pain episodes are associated with nausea but no vomiting. There is no associated early satiety. The hospital staff have observed her during the episodes, and she leans forward grabbing her mid abdominal and epigastric area. She is currently admitted for several medical problems including shortness of breath secondary to preexistent chronic lung disease and possible aspiration pneumonia for which she is being treated, in association with a current DVT. She is currently in the process of being transitioned from Lovenox to warfarin. She is status post cholecystectomy and had a Michelle-en-Y gastric bypass in 2007, which she weighted over 400 lb. There is no history of NSAID use, but she takes oxycodone for back pain chronically. Review of Systems Review of Systems: All systems reviewed & are unremarkable except as noted in HPI and below [facility] Past Medical History Medical History (Updated 09/25/24 @ 14:42 by Keyana Lloyd PA-C) Anxiety Arthritis Asthma Benign colon polyp Benign essential tremor Chronic anemia Chronic anticoagulation Chronic atrial fibrillation Chronic diastolic congestive heart failure Chronic obstructive pulmonary disease Chronic pain syndrome Due to chronic back and neck pain. She is on long-term opiate therapy. Chronic respiratory failure with hypoxia, on home oxygen therapy Depression Diabetic polyneuropathy associated with type 2 diabetes mellitus Emphysema lung Fibromyalgia Gastroesophageal reflux disease Heart failure with preserved ejection fraction History of tobacco use Hypertension Inguinal hernia Obstructive sleep apnea Osteoporosis Peripheral neuropathy Seasonal allergies Severe pulmonary arterial systolic hypertension RVSP of 63 millimeters of mercury on echocardiogram in June 2019. Takotsubo cardiomyopathy In May 2019 with ejection fraction as low as 25 to 30%. EF improved to 65% on echo in June 2019. Type 2 diabetes mellitus with autonomic neuropathy Uterine cancer Surgical History Surgical History History of 2 sections History of cardiac cath History of cholecystectomy History of dilatation and curettage History of exploratory laparotomy With adhesiolysis. History of gastric bypass History of incisional hernia repair History of right knee joint replacement History of surgical removal of ganglion cyst History of total abdominal hysterectomy and bilateral salpingo-oophorectomy For uterine cancer. History of tubal ligation Family History Family History Mother Family history of heart disease in male family member before age 55 Diabetes mellitus Patient's mother is Family history of chronic obstructive pulmonary disease Father Family history of arthritis Patient's father is Family history of emphysema Family history of lung disease Sibling Family history of malignant neoplasm of ovary Family history of malignant neoplasm Patient's sister is Patient's sister is in good health Family history of malignant neoplasm of uterus Grandparent Diabetes mellitus Other Family history of cardiovascular disease Family history of osteoarthritis Hypertension Social History Social History Social History: . Lives alone but has family close by. Smoked up to 2 packs of cigarettes per day for 40 years and quit in 2000. No alcohol or drug abuse. She designates her daughter, Carmita Day, as her surrogate decision maker. Code status: Full code. Smoking packs per day: 3 Smoking cigarettes per day: 60.0 Years smoked: 30 Smoking pack-years: 90.00 Smoking status: Former smoker Tobacco type: cigarettes Second hand tobacco smoke exposure: No Alcohol intake: never Substance use: current Substance use type: opiates Do You Feel Safe in your Home?: Yes Lack of Transportation: No Lack of Food: Never True Current Housing: I Have Housing Concerned About Future Housing: No Difficulty Paying Gas/Electric Bills: No Difficulty Paying for Meds: No Currently Unemployed: YES Education: Don't Know Difficulty w/ Childcare or Family Care: No Living arrangements: alone Occupation/Education: retired Spiritual care concerns: No Meds Home Medications and Allergies Home Medications Medication Instructions Recorded Confirmed Type hydrocodone 10 mg-acetaminophen 1 tablet PO Q6H PRN Pain 05/26/20 09/19/24 History 325 mg tablet albuterol sulfate 2.5 mg/3 mL 2.5 mg (3 mL) inhalation QID PRN 04/03/23 09/19/24 Rx (0.083 %) solution for nebulization shortness of breath or wheezing #360 mL atorvastatin 20 mg tablet 20 mg PO QHS #90 tabs 07/05/23 09/19/24 Rx albuterol sulfate 90 mcg/actuation 1 - 2 puff inhalation Q4-6H PRN 05/26/24 09/19/24 Rx aerosol inhaler Shortness Of Breath #8.5 grams levothyroxine 112 mcg tablet 112 mcg PO DAILY #30 tabs 08/11/24 09/19/24 Rx alprazolam 0.5 mg tablet 0.5 mg PO BID #60 tabs 09/12/24 09/19/24 Rx budesonide-formoterol HFA 80 See Rx Instructions .Route 09/15/24 09/19/24 Rx mcg-4.5 mcg/actuation aerosol .COMPLEX #10.2 grams inhaler (Symbicort) carvedilol 6.25 mg tablet 6.25 mg PO BID 09/19/24 09/19/24 History furosemide 40 mg tablet 40 mg PO DAILY 09/19/24 09/19/24 History hydralazine 10 mg tablet 10 mg PO BID 09/19/24 09/19/24 History losartan 100 mg tablet 100 mg PO DAILY 09/19/24 09/19/24 History pantoprazole 40 mg tablet,delayed 40 mg PO DAILY 09/19/24 09/19/24 History release potassium chloride 20 mEq 20 meq PO DAILY 09/19/24 09/19/24 History tablet,extended release spironolactone 25 mg tablet 25 mg PO DAILY 09/19/24 09/19/24 History Allergies Allergy/AdvReac Type Severity Reaction Status Date / Time quetiapine [From Seroquel] Allergy Intermediate Confusion Verified 09/19/24 15:57 Vital Signs Vital Signs - 24 hr 09/25/24 12:00 09/25/24 16:00 09/25/24 19:58 Temperature 97.7 F 97.9 F 97.6 F Pulse Rate 62 66 62 Respiratory Rate 18 16 18 Blood Pressure 93/42 L 96/53 L 96/53 L Pulse Oximetry 100 100 100 Oxygen Delivery Oxygen Flow Rate 09/25/24 20:11 09/25/24 20:11 09/25/24 20:23 Temperature Pulse Rate 66 69 Respiratory Rate 16 16 Blood Pressure Pulse Oximetry 94 Oxygen Delivery Nasal Cannula Oxygen Flow Rate 3 09/25/24 20:00 09/25/24 22:15 09/26/24 04:20 Temperature Pulse Rate Respiratory Rate Blood Pressure 97/54 L 110/60 Pulse Oximetry 94 Oxygen Delivery Nasal Cannula Oxygen Flow Rate 3 09/26/24 04:29 09/26/24 08:24 Temperature 97.3 F L Pulse Rate 76 70 Respiratory Rate 18 Blood Pressure Pulse Oximetry 100 Oxygen Delivery Oxygen Flow Rate Exam Narrative: General: female in no acute respiratory distress who is nontoxic appearing, lying semi recumbent in bed. HEENT: Normocephalic. Atraumatic. Extraocular movement intact. Sclera clear and anicteric. No facial asymmetry. Chest: Lungs are diminished to auscultation bilaterally. No wheezes or crackles. CV: Heart was regular rate. S1-S2. No murmurs, gallops, or rubs. Abd: Abdomen was soft. Mild epigastric tenderness. Nondistended. Positive bowel sounds. No organomegaly or masses. Large vertical post surgical scar. Ext: No clubbing, cyanosis, or edema. 2+ DP pulses bilaterally. clear. Results Labs 09/26/24 04:44 09/26/24 04:44 Labs: Short CBC 09/26/24 Range/Units 04:44 WBC 6.3 (4.5-10.0) K/mm3 Hgb 11.4 L (12.0-15.0) g/dL Hct 36.1 L (37.0-47.0) % Plt Count 368 (150-375) k/mm3 BMP 09/26/24 04:44 Sodium 135 L Potassium 3.9 Chloride 97 L Carbon Dioxide 31 H BUN 27 H Creatinine 1.00 Glucose 97 Calcium 8.8 Liver Function 09/26/24 Range/Units 04:44 Total Bilirubin 0.5 (0.2-1.3) mg/dL AST 30 (14-36) U/L ALT 21 (6-35) U/L Alkaline Phosphatase 126 (38-126) U/L Albumin 3.9 (3.5-5.1) g/dL
--- NOTE | 2024-09-26 10:40 | PCOTNOTE ---
Attempted to see Patient this A.M. Patient states she is having increased dizziness, and horrible back pain. Patient states her nurse stated he can not give her pain medication with her blood pressure being low. Patient refused to participate at this time. RN notified and aware
[2024-09-26] MEDS: DICYCLOMINE HCL 10 MG CAPSULE 20 MG PO ×3 (11:27→20:39)
[2024-09-26 11:56] LABS: Glucose Point of Care 93 mg/dl (65-105)
[2024-09-26] MEDS: WARFARIN (*PBKC) 7.5 MG TABLET PO (16:54)
[2024-09-26 17:01] LABS: Glucose Point of Care 98 mg/dl (65-105)
[2024-09-26] MEDS: ATORVASTATIN 20 MG TABLET PO (20:39)
[2024-09-26 20:41] LABS: Glucose Point of Care 151 mg/dl (65-105)
[2024-09-27] VITALS (18 sets, daily range): BP systolic 98–122; BP diastolic 43–69; PULSE 62–78; RESP 17–18; TEMP 36.2–36.7; O2SAT 97–100
[2024-09-27 05:05] LABS: Basophils Absolute Auto 0.1 K/mm3 (0.0-0.1); Basophils Percent Auto 1.1 % (0.2-1.2); Eosinophils Absolute Auto 0.3 K/mm3 (0-0.3); Hematocrit 34.6 % (37.0-47.0); Hemoglobin 10.8 g/dL (12.0-15.0); Immature Granulocyte Absolute 0.01 K/mm3 (0.00-0.031); Immature Granulocyte Percent A 0.2 % (0-0.5); Lymphocytes Percent Auto 24.2 % (18.3-44.2); Mean Corpuscular HGB Conc 31.2 g/dl (32-36); Mean Corpuscular Hemoglobin 33.1 pg (26-34); Mean Corpuscular Volume 106.1 fl (80-100); Mean Platelet Volume 9.1 fl (7.4-10.4); Monocytes Absolute Auto 0.5 K/mm3 (0.1-0.6); Monocytes Percent Auto 7.4 % (2.6-8.5); Neutrophils Absolute Auto 3.9 K/mm3 (1.3-6.7); Neutrophils Percent Auto 63.1 % (45.5-73.1); Platelet Count Result 345 k/mm3 (150-375); Red Blood Count 3.26 M/mm3 (4.2-5.4); Red Cell Distribution Width 14.3 % (11.5-14.5); White Blood Count 6.2 K/mm3 (4.5-10.0)
[2024-09-27 05:16] LABS: INR 1.7; Prothrombin Time 20.6 Seconds (11.1-14.7)
[2024-09-27 05:23] LABS: Ovalocytes 1+; Platelet Estimate Slightly Increased (Adequate); Schistocytes None Seen
[2024-09-27 05:26] LABS: Alanine Aminotransferase 22 U/L (6-35); Albumin Level 3.5 g/dL (3.5-5.1); Alkaline Phosphatase 117 U/L (38-126); Anion Gap 1 mmol/L (4-12); Aspartate Amino Transferase 33 U/L (14-36); Bilirubin,Total 0.5 mg/dL (0.2-1.3); Blood Urea Nitrogen 30 mg/dL (7-17); Calcium 8.4 mg/dL (8.4-10.2); Carbon Dioxide 33 mmol/L (22-30); Chloride 100 mmol/L (98-107); Estimated CRCL calculation 45 ml/min; Estimated Glomerular Filt Rate 48; Glucose 91 mg/dL (65-110); Potassium 4.1 mmol/L (3.4-5.0); Sodium 134 mmol/L (137-145)
[2024-09-27] MEDS: HYDROcodone/acetaminophen (*CRX) 10-325 MG TABLET 1 TAB PO ×3 (06:05→18:44)
[2024-09-27] MEDS: ERYTHROMYCIN OPHTH OINTMENT 1 GM TUBE 1 APPLIC EACH EYE ×5 (06:05→20:55)
[2024-09-27] MEDS: LEVOTHYROXINE SODIUM 112 MCG TABLET PO (06:06)
[2024-09-27] MEDS: DICYCLOMINE HCL 10 MG CAPSULE 20 MG PO ×4 (06:06→20:52)
[2024-09-27] MEDS: ALBUTEROL SULFATE NEB 2.5 MG/3 ML INH INHALATION ×4 (06:50→21:05)
[2024-09-27] MEDS: FLUTICASONE/SALMETEROL 45-21 MCG INHALER 1 PUFF 2 PUFF INHALATION ×2 (06:50→21:05)
[2024-09-27 07:54] LABS: Glucose Point of Care 109 mg/dl (65-105)
[2024-09-27] MEDS: hydrALAZINE 10 MG TABLET PO (08:02)
[2024-09-27] MEDS: ALPRAZolam (*CRX) 0.5 MG TABLET PO ×2 (08:02→20:54)
[2024-09-27] MEDS: LOSARTAN POTASSIUM 50 MG TABLET PO (08:02)
[2024-09-27] MEDS: carvediloL 6.25 MG TABLET PO ×2 (08:02→20:54)
[2024-09-27] MEDS: CYANOCOBALAMIN 1,000 MCG TABLET 1000 MCG PO (08:02)
[2024-09-27] MEDS: FUROSEMIDE INJ 40 MG/4 ML VIAL IV PUSH (08:02)
[2024-09-27] MEDS: FERROUS SULFATE 325 MG TABLET DR PO (08:02)
[2024-09-27] MEDS: ASPIRIN 81 MG ENTERIC TABLET PO (08:02)
[2024-09-27] MEDS: PANTOPRAZOLE 40 MG TABLET PO (08:03)
[2024-09-27] MEDS: ENOXAPARIN 120 MG/0.8 ML SYRINGE 105 MG SUB-Q ×2 (08:03→20:55)
--- NOTE | 2024-09-27 08:26 | PM.IMPN ---
Progress Note: A&P Assessment and Plan (1) Chronic respiratory failure with hypoxia: Code(s): J96.11 - Chronic respiratory failure with hypoxia Status: Acute Assessment and Plan: Patient is on 3-4 L at rest, with exertion and at night. She has a high SpO2 on 3LNC with Sa02 98%. Wean O2 as tolerated to keep SpO2>92%. Follow (2) Abdominal pain: Code(s): R10.9 - Unspecified abdominal pain Status: Acute Assessment and Plan: Severe abdominal pain directly after eating. Possible etiology includes duodenal vs peptic ulcer vs gas build up 2/2 aerophagia from COPD vs other. Patient is s/p cholecystectomy. Had a gastric bypass in the 2007. - Stool studies ordered to rule out infectious cause of abdominal pain - CTA abdomen/pelvis: 1. Nonspecific diarrhea with no obstruction or abnormal bowel wall thickening. 2. Small amount of scattered atherosclerotic plaque along the normal caliber abdominal aorta. No evaluation significant stenosis and several of its branches with no hemodynamically significant stenosis seen at the celiac axis, superior or inferior mesenteric arteries. 3. Mild cardiomegaly. 4. Small sliding-type hiatal hernia. 5. Cirrhosis. - Abdominal US ordered to further evaluate possible cirrhosis seen on CT - GI consulted Plan for EGD on Sunday afternoon Started on Bentyl TIDWM (3) CHF exacerbation: Code(s): I50.9 - Heart failure, unspecified Status: Acute Assessment and Plan: Suspect acute on chronic diastolic CHF exacerbation and possibly pneumonia. Mildly elevated Trop related to CHF. - Symptoms: Shortness of breath. - Current medications: - Supportive treatment Tyl and ibu prn Nebs prn - Fluid restriction 1500 ml/day - Lasix 40 mg IV daily - BNP: 7300 - D dimer positive - Troponin mildly elevated at 0.039 -> 0.035. EKG showing AFib, RAD and Rt BBB. - AB.35/40/94 on 4 L. - Chest x-ray shows mild bibasilar pulmonary edema. - CTA was negative for PE but does show patchy airspace opacities in the right lower lobe suspicious for aspiration and/or pneumonia. - Echo: EF 62%, Grade III diastolic dysfxn, RVE, mild pHTN (54mmHg) - Monitor vital signs, I&Os, BUN/creatinine, daily weights, neuro status and patient is a fall risk - Monitor serum electrolytes, Keep serum Potassium>4 and serum Magnesium>2 and CBC (4) Pneumonia: Qualifiers: Aspiration pneumonia type: unspecified Laterality: bilateral Lung location: lower lobe of lung Pneumonia type: aspiration pneumonia Qualified Code(s): J69.0 - Pneumonitis due to inhalation of food and vomit Code(s): J18.9 - Pneumonia, unspecified organism Status: Acute Assessment and Plan: - Chest x-ray shows mild bibasilar pulmonary edema. - CTA was negative for PE but does show patchy airspace opacities in the right lower lobe suspicious for aspiration and/or pneumonia. - Complicating Factors: CHF exacerbation and COPD on chronic O2 supplementation - Antibiotics: Augmentin and doxycycline, course to be completed on 09/26 - Viral PCR: negative for Flu/COVID/RSV - Sputum culture: Normal oropharyngeal maria luz - MRSA negative - supportive treatment - Monitor vital signs, I&Os, neuro status and patient is a fall risk - Follow WBC, serum electrolytes, temperature curves and cultures - Speech eval showing no concerns. She did recommend Easy to chew Level 7 which was ordered. Since aspiration less likely, will stop Flagyl. De-escalate abx and change to oral (5) DVT (deep venous thrombosis): Code(s): I82.409 - Acute embolism and thrombosis of unspecified deep veins of unspecified lower extremity Status: Acute Assessment and Plan: Patient has ethan off her Eliquis prior to admission, unable to afford Eliquis or Xarelto - INR 1.7 on am labs - Doppler showing below the knee DVT right peroneal veins. - Start Lovenox 100 mg subq q12. Will need to stay on Lovenox for a day after patient reaches INR of 2-3 then in can be discontinued with patient receiving only Warfarin. - Started Warfarin 5 mg PO qpm on 09/23, dose increased to 7.5 mg on 09/25. Goal 2-3. Patient will need set up for INR testing at discharge. (6) UTI (urinary tract infection): Qualifiers: Hematuria presence: without hematuria Urinary tract infection type: site unspecified Qualified Code(s): N39.0 - Urinary tract infection, site not specified Code(s): N39.0 - Urinary tract infection, site not specified Status: Acute Assessment and Plan: UA is concerning for UTI. UCx collected. Rocephin started. UCx EColi that is relatively sterling-sensitive. Changed to Augmentin to complete a course (7) Macrocytic anemia: Code(s): D53.9 - Nutritional anemia, unspecified Status: Acute Assessment and Plan: Patient with chronic anemia in the past but more recently her hemoglobin was 13 in April. Hemoglobin 10.2 on admission with macrocytosis. - H/H 11.4/36.1 on am labs - Iron studies showed normal iron and TIBC with saturation of 12%. Ferritin normal at 67. - B12 level low at 189 with a normal folate. - Patient with B12 deficiency. Iron stores (Ferritin <100)are low as well. - Replaced B12. Iron replacement as well. - TSH normal. - Monitor H&H and transfuse as necessary. (8) Hypertension: Qualifiers: Hypertension type: essential hypertension Qualified Code(s): I10 - Essential (primary) hypertension Code(s): I10 - Essential (primary) hypertension Status: Acute Assessment and Plan: Chronic, blood pressure was poorly controlled. Home medications were resumed. - Coreg 6.25 mg BID - Hydralazine 10 mg BID, holding as patients blood pressures have been running low - Losartan 100 mg daily, decreased to 50 mg daily given that patient has been consistently hypotensive into the 90s systolic - Spironolactone 25 mg daily, potassium level WNL on am labs. - Will continue to monitor (9) Chronic atrial fibrillation: Code(s): I48.20 - Chronic atrial fibrillation, unspecified Status: Acute Assessment and Plan: Chronic atrial fibrillation. Echo as above. - She is not on Eliquis despite high [id number] score of 7. - Started on Lovenox 100 mg subq q12. Will need to stay on Lovenox for a day after patient reaches INR of 2-3 then in can be discontinued with patient receiving only Warfarin. - Started Warfarin 5 mg PO qpm on 09/23, dose increased to 7.5 mg on 09/25. Goal 2-3. Patient will need set up for INR testing at discharge. (10) Chronic obstructive pulmonary disease: Code(s): J44.9 - Chronic obstructive pulmonary disease, unspecified Status: Acute Assessment and Plan: - Continue bronchodilators. - Continue Advair. (11) Hypothyroidism (acquired): Code(s): E03.9 - Hypothyroidism, unspecified Status: Acute Assessment and Plan: TSH normal. Continue levothyroxine. (12) Type 2 diabetes mellitus: Code(s): E11.9 - Type 2 diabetes mellitus without complications Status: Acute Assessment and Plan: A1c 5.4%. The patient's blood glucose was reviewed on 09/21 Glucose remains well controlled. Continue AccuCheks covering with sliding scale. Hypoglycemia protocol available as needed. Continue to monitor (13) Obstructive sleep apnea: Code(s): G47.33 - Obstructive sleep apnea (adult) (pediatric) Status: Acute Assessment and Plan: Patient states she is compliant with BiPAP at night. 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 Spent With Patient Time with patient: 25 - 35 minutes Subjective Date/time seen: 09/27/24 08:26 Interval history: 79-year-old female with multiple medical problems including chronic respiratory failure on home oxygen, obstructive sleep apnea, chronic obstructive pulmonary disease, pulmonary hypertension, heart failure with preserved ejection fraction, chronic atrial fibrillation for which she is prescribed anticoagulation however she has not been taking it for a couple of months due to cost, chronic anemia, and anxiety who presented to the emergency department via EMS from home for evaluation of shortness of breath. Patient is pleasant lying comfortably in bed. She continues to endorse abdominal pain following meals with associated dizziness and fatigue. She has one episode of diarrhea this morning but denies any bloody stools. Stool culture ordered by GI. Patient has no other complaints denying chest pain, shortness of breath, and palpitations. Review of Systems Review of Systems: All systems reviewed & are unremarkable except as noted in HPI and below Exam Narrative: AF HR 76 RR 18 SPO2 100 BP 110/69 General: female in no acute respiratory distress who is nontoxic appearing, lying semi recumbent in bed. HEENT: Normocephalic. Atraumatic. Extraocular movement intact. Sclera clear and anicteric. No facial asymmetry. Chest: Lungs are clear but diminished to auscultation bilaterally. No wheezes or crackles. CV: Heart was regular rate. S1-S2. No murmurs, gallops, or rubs. Abd: Abdomen was soft. Mild epigastric tenderness. Nondistended. Positive bowel sounds. No organomegaly or masses. Ext: No clubbing, cyanosis, or edema. 2+ DP pulses bilaterally. Neuro: Patient is alert and oriented x3. Cranial nerves 2-12 are intact. Speech is clear. Objective Data Vital Signs Vital Signs: Vital Signs - 24 hr 09/26/24 10:00 09/26/24 10:28 09/26/24 10:52 Temperature 97.1 F L Pulse Rate 69 Respiratory Rate 18 Blood Pressure 79/61 L 92/60 L 110/58 L Pulse Oximetry 99 Oxygen Delivery Oxygen Flow Rate 09/26/24 12:46 09/26/24 12:55 09/26/24 14:00 Temperature 97.1 F L Pulse Rate 68 71 69 Respiratory Rate 18 18 18 Blood Pressure 100/62 Pulse Oximetry 99 Oxygen Delivery Oxygen Flow Rate 09/26/24 16:18 09/26/24 17:42 09/26/24 19:50 Temperature 97.6 F Pulse Rate 67 69 70 Respiratory Rate 18 16 16 Blood Pressure 94/54 L 108/51 L Pulse Oximetry 99 100 Oxygen Delivery Oxygen Flow Rate 09/26/24 20:39 09/26/24 20:00 09/27/24 00:39 Temperature Pulse Rate 70 65 Respiratory Rate Blood Pressure 106/44 L Pulse Oximetry 99 Oxygen Delivery Nasal Cannula Oxygen Flow Rate 3 09/27/24 05:57 09/26/24 19:55 09/26/24 22:45 Temperature 98 F Pulse Rate 68 70 68 Respiratory Rate 18 18 16 Blood Pressure 122/60 Pulse Oximetry 100 99 Oxygen Delivery Autopap Oxygen Flow Rate 09/26/24 19:55 09/26/24 20:05 09/27/24 03:15 Temperature Pulse Rate 73 65 Respiratory Rate 18 17 Blood Pressure Pulse Oximetry 99 99 Oxygen Delivery Nasal Cannula Autopap Oxygen Flow Rate 3 09/27/24 06:50 09/27/24 06:50 09/27/24 07:00 Temperature Pulse Rate 77 77 78 Respiratory Rate 18 18 18 Blood Pressure Pulse Oximetry 99 Oxygen Delivery Nasal Cannula Oxygen Flow Rate 3 09/27/24 08:02 Temperature Pulse Rate 70 Respiratory Rate Blood Pressure Pulse Oximetry Oxygen Delivery Oxygen Flow Rate Intake/Output Intake/Output: Intake & Output 09/24/24 09/25/24 09/26/24 09/27/24 23:59 23:59 23:59 23:59 Intake Total 1182 1150 1460 Output Total 951 700 Balance 981 420 7817 Meds/Results Medications: Active Medications Generic Name Dose Route Start Last Admin Trade Name Freq PRN Reason Stop Dose Admin Acetaminophen 650 mg 09/19/24 22:21 09/26/24 20:38 Acetaminophen 325 Mg Tablet PO 650 mg Q6H PRN Administration Mild Pain (1-3) or Fever Hydrocodone Bitart/Acetaminophen 1 tab 09/19/24 16:27 09/27/24 06:05 Hydrocodone/Acetaminophen (*Crx) 10-325 Mg Tablet PO 1 tab Q6H PRN Administration Pain Rated 4-6 Albuterol 1 - 2 puff 09/19/24 16:27 Albuterol Sulfate (*Sp) Aerosol 1 Puff INHALATION Q4-6H PRN Shortness Of Breath Albuterol 2.5 mg 09/20/24 12:00 09/27/24 07:45 Albuterol Sulfate Neb 2.5 Mg/3 Ml Inh INHALATION Not Given QIDRT [facility]ICKSON Alprazolam 0.5 mg 09/19/24 21:00 09/27/24 08:02 Alprazolam (*Crx) 0.5 Mg Tablet PO 0.5 mg Q12HR ERICKSON Administration Aspirin 81 mg 09/20/24 09:00 09/27/24 08:02 Aspirin 81 Mg Enteric Tablet PO 81 mg QAM ERICKSON Administration Atorvastatin Calcium 20 mg 09/19/24 21:00 09/26/24 20:39 Atorvastatin 20 Mg Tablet PO 20 mg QHS ERICKSON Administration Carvedilol 6.25 mg 09/19/24 21:00 09/27/24 08:02 Carvedilol 6.25 Mg Tablet PO 6.25 mg Q12HR ERICKSON Administration Cyanocobalamin 1,000 mcg 09/21/24 09:00 09/27/24 08:02 Cyanocobalamin 1,000 Mcg Tablet PO 1,000 mcg QAM ERICKSON Administration Dextrose 12.5 gm 09/19/24 22:21 Dextrose 50% 25 Gm/50 Ml Syringe IV PUSH PRN PRN Hypoglycemia Protocol Dicyclomine HCl 20 mg 09/26/24 11:30 09/27/24 06:06 Dicyclomine Hcl 10 Mg Capsule PO 20 mg ACHS ERICKSON Administration Enoxaparin Sodium 105 mg 09/24/24 09:00 09/27/24 08:03 Enoxaparin 120 Mg/0.8 Ml Syringe SUB-Q 105 mg Q12H ERICKSON Administration Erythromycin 1 applic 09/20/24 22:30 09/27/24 08:03 Erythromycin Ophth Ointment 1 Gm Tube EACH EYE 09/27/24 22:29 1 applic Q4HWA ERICKSON Administration Ferrous Sulfate 325 mg 09/21/24 09:00 09/27/24 08:02 Ferrous Sulfate [address] PO 325 mg DAILY ERICK[facility] Administration Furosemide 40 mg 09/26/24 09:00 09/27/24 08:02 Furosemide Inj 40 Mg/4 Ml Vial IV PUSH 40 mg DAILY [facility]ICK[facility] Administration Glucagon 1 mg 09/19/24 22:21 Glucagon For Inj 1 Mg Vial IM PRN PRN Hypoglycemia Protocol Glucose 15 gm 09/19/24 22:21 Glucose Oral Gel 15 Gm Of Glucse In 37.5 Gm Tube PO PRN PRN Hypoglycemia Protocol Hydralazine HCl 10 mg 09/19/24 17:00 09/27/24 08:02 Hydralazine 10 Mg Tablet PO 10 mg BID ERICKSON Administration Dextrose 1,000 mls @ 100 mls/hr 09/19/24 22:21 Dextrose 5% 1,000 Ml IVPB PRN PRN Hypoglycemia Protocol Insulin Aspart 3 - 6 units 09/20/24 08:00 09/27/24 07:56 Insulin Aspart (*Bkc) 100 Units/Ml SUB-Q Not Given TIDWM [facility] Protocol Insulin Aspart 1 - 3 units 09/20/24 21:00 09/26/24 20:41 Insulin Aspart (*Bkc) 100 Units/Ml SUB-Q Not Given HS [facility] Protocol Levothyroxine Sodium 112 mcg 09/20/24 06:30 09/27/24 06:06 Levothyroxine Sodium 112 Mcg Tablet PO 112 mcg DAILY@0630 [facility] Administration Lidocaine 1 patch 09/26/24 10:00 09/27/24 07:48 Lidocaine 5% Patch TRANSDERM Not Given DAILY [facility] Losartan Potassium 50 mg 09/27/24 09:00 09/27/24 08:02 Losartan Potassium 50 Mg Tablet PO 50 mg DAILY [facility]ICKSON Administration Miscellaneous Information 0 each 09/19/24 00:01 09/27/24 07:46 Albuterol Nebs And Hfa Both Ordered - Please Specify When To Use Each Or Discontinue One XX 10/19/24 00:00 Not Given CLARIFY [facility] Nitroglycerin 0.4 mg 09/19/24 23:36 09/20/24 07:43 Nitroglycerin Sl 0.4 Mg Tablet SUBLINGUAL 0.4 mg Q5MIN PRN Administration Chest Pain Pantoprazole Sodium 40 mg 09/20/24 09:00 09/27/24 08:03 Pantoprazole 40 Mg Tablet PO 40 mg DAILY [facility] Administration Fluticasone/Salmeterol 2 puff 09/20/24 20:00 09/27/24 07:45 Fluticasone/Salmeterol 45-21 Mcg Inhaler 1 Puff INHALATION Not Given Q12HRT [facility] Spironolactone 25 mg 09/20/24 09:00 09/20/24 10:35 Spironolactone 25 Mg Tablet PO Not Given DAILY [facility] Warfarin Sodium 7.5 mg 09/25/24 17:00 09/26/24 16:54 Warfarin (*Pbkc) 7.5 Mg Tablet PO 7.5 mg DAILY@1700 [facility] Administration Radiology Results: ITS Impressions Chest X-Ray 09/19/24 10:09 Impression: Probable mild bibasilar pulmonary edema and central congestive change. Chest CTA 09/20/24 08:07 IMPRESSION: 1. No pulmonary collision. 2. Patchy airspace opacities in the right lower lobe which suspicious for aspiration and/or pneumonia. 3. Mild emphysema. 4. Very small right pleural effusion. 5. Cardiomegaly. 6. Enlargement of the central pulmonary arteries consistent with pulmonary arterial hypertension. 7. Small sliding-type hiatal hernia with change of Michelle-en-Y gastric bypass procedure. Venous Doppler Study 09/20/24 13:07 IMPRESSION: 1. [id number] deep venous thrombosis in the right peroneal veins. Findings were discussed with Nicole Barragan, the nurse caring for the patient, at 1:12 PM. 2. No deep venous thrombosis in the left lower limb. Modified Barium Swallow 09/20/24 13:27 IMPRESSION: Patient tolerated regular consistency oral feedings in the upright position. Please correlate with speech pathologist findings and specific feeding recommendations. Abdomen/Pelvis CTA 09/24/24 15:13 IMPRESSION: 1. Nonspecific diarrhea with no obstruction or abnormal bowel wall thickening. 2. Small amount of scattered atherosclerotic plaque along the normal caliber abdominal aorta. No evaluation significant stenosis and several of its branches with no hemodynamically significant stenosis seen at the celiac axis, superior or inferior mesenteric arteries. 3. Mild cardiomegaly. 4. Small sliding-type hiatal hernia. 5. Cirrhosis. Labs Labs: Laboratory Results - last 24 hr 09/26/24 09/26/24 09/26/24 11:47 16:54 19:55 WBC RBC Hgb Hct MCV MCH MCHC RDW Plt Count MPV Immature Gran % (Auto) Neut % (Auto) Lymph % (Auto) Yell % (Auto) Eos % (Auto) Baso % (Auto) Lymph # (Auto) Yell # (Auto) Eos # (Auto) Baso # (Auto) Abs Immat Gran (auto) Absolute Neuts (auto) Absolute Nucleated RBC Nucleated RBC % Platelet Estimate Ovalocytes Schistocytes PT INR APTT Sodium Potassium Chloride Carbon Dioxide Anion Gap BUN Creatinine Estim Creat Clear Calc Estimated GFR Glucose POC Capillary Glucose 93 98 151 H Calcium Total Bilirubin AST ALT Alkaline Phosphatase Total Protein Albumin 09/27/24 09/27/24 04:45 07:47 WBC 6.2 RBC 3.26 L Hgb 10.8 L Hct 34.6 L MCV 106.1 H MCH 33.1 MCHC 31.2 L RDW 14.3 Plt Count 345 MPV 9.1 Immature Gran % (Auto) 0.2 Neut % (Auto) 63.1 Lymph % (Auto) 24.2 Yell % (Auto) 7.4 Eos % (Auto) 4.0 Baso % (Auto) 1.1 Lymph # (Auto) 1.50 Yell # (Auto) 0.5 Eos # (Auto) 0.3 Baso # (Auto) 0.1 Abs Immat Gran (auto) 0.01 Absolute Neuts (auto) 3.9 Absolute Nucleated RBC 0.000 Nucleated RBC % 0.0 Platelet Estimate Slightly increased Ovalocytes 1+ Schistocytes None seen PT 20.6 H INR 1.7 APTT 62.0 H Sodium 134 L Potassium 4.1 Chloride 100 Carbon Dioxide 33 H Anion Gap 1 L BUN 30 H Creatinine 1.10 H Estim Creat Clear Calc 45 Estimated GFR 48 L Glucose 91 POC Capillary Glucose 109 H Calcium 8.4 Total Bilirubin 0.5 AST 33 ALT 22 Alkaline Phosphatase 117 Total Protein 7.0 Albumin 3.5 Quality VTE Prophylaxis VTE prophylaxis: pharmacologic ordered
--- NOTE | 2024-09-27 11:49 | P.PNGI_ITS ---
Progress Note: A&P Assessment and Plan (1) Abdominal pain: Code(s): R10.9 - Unspecified abdominal pain Status: Acute (2) Diarrhea: Code(s): R19.7 - Diarrhea, unspecified Status: Acute (3) Anemia: Qualifiers: Anemia type: iron deficiency Iron deficiency anemia type: chronic blood loss Qualified Code(s): D50.0 - Iron deficiency anemia secondary to blood loss (chronic) Code(s): D64.9 - Anemia, unspecified Status: Acute Plan PATIENT OVERALL APPEARS TO BE STABLE PATIENT IS ALREADY SCHEDULED FOR UPPER ENDOSCOPY ON SUNDAY WE WILL KEEP THE PATIENT NPO AFTER MIDNIGHT FOR SUNDAY MORNING UPPER ENDOSCOPY. CT SCAN SHOWED POSSIBLE CIRRHOSIS WILL GET ULTRASOUND OF THE LIVER WHILE PATIENT IS IN THE HOSPITAL. WE WILL ALSO GET THE STOOL STUDIES TO RULE OUT ANY INFECTIOUS ELEMENT REGULAR GI TEAM WILL RESUME PATIENT ON SUNDAY THIS HAS BEEN DISCUSSED WITH THE NURSING STAFF Subjective Date/time seen: 09/27/24 11:49 Interval history: patient is doing well patient's nurse is at the bedside. Patient does have history of abdominal pain especially after eating food patient is already scheduled for an upper endoscopy on Sunday patient also has history of gastric bypass and also complains of some diarrhea. Review of Systems Review of Systems: Review of systems otherwise negative Exam Narrative: AF HR General: female in no acute respiratory distress who is nontoxic appearing, HEENT: Normocephalic. Atraumatic. Extraocular movement intact. Sclera clear and anicteric. No facial asymmetry. Chest: Lungs are clear but diminished to auscultation bilaterally. No wheezes or crackles. CV: Heart was regular rate. S1-S2. No murmurs, gallops, or rubs. Abd: Abdomen was soft. Mild epigastric and RLQ tenderness. Nondistended. Positive bowel sounds. No organomegaly or masses. Ext: No clubbing, cyanosis, or edema. 2+ DP pulses bilaterally. Neuro: Patient is alert and oriented x3. . Objective Data Vital Signs Vital Signs: Vital Signs - 24 hr 09/26/24 12:46 09/26/24 12:55 09/26/24 14:00 Temperature 97.1 F L Pulse Rate 68 71 69 Respiratory Rate 18 18 18 Blood Pressure 100/62 Pulse Oximetry 99 Oxygen Delivery Oxygen Flow Rate 09/26/24 16:18 09/26/24 17:42 09/26/24 19:50 Temperature 97.6 F Pulse Rate 67 69 70 Respiratory Rate 18 16 16 Blood Pressure 94/54 L 108/51 L Pulse Oximetry 99 100 Oxygen Delivery Oxygen Flow Rate 09/26/24 20:39 09/26/24 20:00 09/27/24 00:39 Temperature Pulse Rate 70 65 Respiratory Rate Blood Pressure 106/44 L Pulse Oximetry 99 Oxygen Delivery Nasal Cannula Oxygen Flow Rate 3 09/27/24 05:57 09/26/24 19:55 09/26/24 22:45 Temperature 98 F Pulse Rate 68 70 68 Respiratory Rate 18 18 16 Blood Pressure 122/60 Pulse Oximetry 100 99 Oxygen Delivery Autopap Oxygen Flow Rate 09/26/24 19:55 09/26/24 20:05 09/27/24 03:15 Temperature Pulse Rate 73 65 Respiratory Rate 18 17 Blood Pressure Pulse Oximetry 99 99 Oxygen Delivery Nasal Cannula Autopap Oxygen Flow Rate 3 09/27/24 06:50 09/27/24 06:50 09/27/24 07:00 Temperature Pulse Rate 77 77 78 Respiratory Rate 18 18 18 Blood Pressure Pulse Oximetry 99 Oxygen Delivery Nasal Cannula Oxygen Flow Rate 3 09/27/24 08:02 09/27/24 09:00 09/27/24 10:50 Temperature 97.6 F Pulse Rate 70 68 75 Respiratory Rate 18 18 Blood Pressure 110/69 Pulse Oximetry 100 Oxygen Delivery Oxygen Flow Rate 09/27/24 11:00 Temperature Pulse Rate 76 Respiratory Rate 18 Blood Pressure Pulse Oximetry Oxygen Delivery Oxygen Flow Rate Intake/Output Intake/Output: Intake & Output 09/24/24 09/25/24 09/26/24 09/27/24 23:59 23:59 23:59 23:59 Intake Total 1182 1150 1460 240 Output Total 951 700 Balance 074 542 5055 240 Meds/Results Medications: Active Medications Generic Name Dose Route Start Last Admin Trade Name Freq PRN Reason Stop Dose Admin Acetaminophen 650 mg 09/19/24 22:21 09/26/24 20:38 Acetaminophen 325 Mg Tablet PO 650 mg Q6H PRN Administration Mild Pain (1-3) or Fever Hydrocodone Bitart/Acetaminophen 1 tab 09/19/24 16:27 09/27/24 06:05 Hydrocodone/Acetaminophen (*Crx) 10-325 Mg Tablet PO 1 tab Q6H PRN Administration Pain Rated 4-6 Albuterol 1 - 2 puff 09/19/24 16:27 Albuterol Sulfate (*Sp) Aerosol 1 Puff INHALATION Q4-6H PRN Shortness Of Breath Albuterol 2.5 mg 09/20/24 12:00 09/27/24 10:50 Albuterol Sulfate Neb 2.5 Mg/3 Ml Inh INHALATION 2.5 mg QIDRT ERICKSON Administration Alprazolam 0.5 mg 09/19/24 21:00 09/27/24 08:02 Alprazolam (*Crx) 0.5 Mg Tablet PO 0.5 mg Q12HR ERICKSON Administration Aspirin 81 mg 09/20/24 09:00 09/27/24 08:02 Aspirin 81 Mg Enteric Tablet PO 81 mg QAM ERICKSON Administration Atorvastatin Calcium 20 mg 09/19/24 21:00 09/26/24 20:39 Atorvastatin 20 Mg Tablet PO 20 mg QHS ERICKSON Administration Carvedilol 6.25 mg 09/19/24 21:00 09/27/24 08:02 Carvedilol 6.25 Mg Tablet PO 6.25 mg Q12HR ERICKSON Administration Cyanocobalamin 1,000 mcg 09/21/24 09:00 09/27/24 08:02 Cyanocobalamin 1,000 Mcg Tablet PO 1,000 mcg QAM ERICKSON Administration Dextrose 12.5 gm 09/19/24 22:21 Dextrose 50% 25 Gm/50 Ml Syringe IV PUSH PRN PRN Hypoglycemia Protocol Dicyclomine HCl 20 mg 09/26/24 11:30 09/27/24 06:06 Dicyclomine Hcl 10 Mg Capsule PO 20 mg ACHS ERICKSON Administration Enoxaparin Sodium 105 mg 09/24/24 09:00 09/27/24 08:03 Enoxaparin 120 Mg/0.8 Ml Syringe SUB-Q 105 mg Q12H ERICKSON Administration Erythromycin 1 applic 09/20/24 22:30 09/27/24 08:03 Erythromycin Ophth Ointment 1 Gm Tube EACH EYE 09/27/24 22:29 1 applic Q4HWA ERICKSON Administration Ferrous Sulfate 325 mg 09/21/24 09:00 09/27/24 08:02 Ferrous Sulfate [address] PO 325 mg DAILY ERICKSON Administration Furosemide 40 mg 09/26/24 09:00 09/27/24 08:02 Furosemide Inj 40 Mg/4 Ml Vial IV PUSH 40 mg DAILY ERICK[facility] Administration Glucagon 1 mg 09/19/24 22:21 Glucagon For Inj 1 Mg Vial IM PRN PRN Hypoglycemia Protocol Glucose 15 gm 09/19/24 22:21 Glucose Oral Gel 15 Gm Of Glucse In 37.5 Gm Tube PO PRN PRN Hypoglycemia Protocol Hydralazine HCl 10 mg 09/19/24 17:00 09/27/24 08:02 Hydralazine 10 Mg Tablet PO 10 mg BID ERICKSON Administration Dextrose 1,000 mls @ 100 mls/hr 09/19/24 22:21 Dextrose 5% 1,000 Ml IVPB PRN PRN Hypoglycemia Protocol Insulin Aspart 3 - 6 units 09/20/24 08:00 09/27/24 07:56 Insulin Aspart (*Bkc) 100 Units/Ml SUB-Q Not Given TIDWM ERICKSON Protocol Insulin Aspart 1 - 3 units 09/20/24 21:00 09/26/24 20:41 Insulin Aspart (*Bkc) 100 Units/Ml SUB-Q Not Given HS [facility]ICK[facility] Protocol Levothyroxine Sodium 112 mcg 09/20/24 06:30 09/27/24 06:06 Levothyroxine Sodium 112 Mcg Tablet PO 112 mcg DAILY@0630 [facility] Administration Lidocaine 1 patch 09/26/24 10:00 09/27/24 07:48 Lidocaine 5% Patch TRANSDERM Not Given DAILY ERICK[facility] Losartan Potassium 50 mg 09/27/24 09:00 09/27/24 08:02 Losartan Potassium 50 Mg Tablet PO 50 mg DAILY ERICK[facility] Administration Miscellaneous Information 0 each 09/19/24 00:01 09/27/24 07:46 Albuterol Nebs And Hfa Both Ordered - Please Specify When To Use Each Or Di scontinue One XX 10/19/24 00:00 Not Given CLARIFY ERICKSON Nitroglycerin 0.4 mg 09/19/24 23:36 09/20/24 07:43 Nitroglycerin Sl 0.4 Mg Tablet SUBLINGUAL 0.4 mg Q5MIN PRN Administration Chest Pain Pantoprazole Sodium 40 mg 09/20/24 09:00 09/27/24 08:03 Pantoprazole 40 Mg Tablet PO 40 mg DAILY ERICKSON Administration Fluticasone/Salmeterol 2 puff 09/20/24 20:00 09/27/24 07:45 Fluticasone/Salmeterol 45-21 Mcg Inhaler 1 Puff INHALATION Not Given Q12HRT [facility] Spironolactone 25 mg 09/20/24 09:00 09/20/24 10:35 Spironolactone 25 Mg Tablet PO Not Given DAILY [facility] Warfarin Sodium 7.5 mg 09/25/24 17:00 09/26/24 16:54 Warfarin (*Pbkc) 7.5 Mg Tablet PO 7.5 mg DAILY@1700 [facility] Administration Radiology Results: ITS Impressions Chest X-Ray 09/19/24 10:09 Impression: Probable mild bibasilar pulmonary edema and central congestive change. Chest CTA 09/20/24 08:07 IMPRESSION: 1. No pulmonary collision. 2. Patchy airspace opacities in the right lower lobe which suspicious for aspiration and/or pneumonia. 3. Mild emphysema. 4. Very small right pleural effusion. 5. Cardiomegaly. 6. Enlargement of the central pulmonary arteries consistent with pulmonary arterial hypertension. 7. Small sliding-type hiatal hernia with change of Michelle-en-Y gastric bypass procedure. Venous Doppler Study 09/20/24 13:07 IMPRESSION: 1. [id number] deep venous thrombosis in the right peroneal veins. Findings were discussed with Nicole Barragan, the nurse caring for the patient, at 1:12 PM. 2. No deep venous thrombosis in the left lower limb. Modified Barium Swallow 09/20/24 13:27 IMPRESSION: Patient tolerated regular consistency oral feedings in the upright position. Please correlate with speech pathologist findings and specific feeding recommendations. Abdomen/Pelvis CTA 09/24/24 15:13 IMPRESSION: 1. Nonspecific diarrhea with no obstruction or abnormal bowel wall thickening. 2. Small amount of scattered atherosclerotic plaque along the normal caliber abdominal aorta. No evaluation significant stenosis and several of its branches with no hemodynamically significant stenosis seen at the celiac axis, superior or inferior mesenteric arteries. 3. Mild cardiomegaly. 4. Small sliding-type hiatal hernia. 5. Cirrhosis. Labs Labs: Laboratory Results - last 24 hr 09/26/24 09/26/24 09/26/24 11:47 16:54 19:55 WBC RBC Hgb Hct MCV MCH MCHC RDW Plt Count MPV Immature Gran % (Auto) Neut % (Auto) Lymph % (Auto) Caroline % (Auto) Eos % (Auto) Baso % (Auto) Lymph # (Auto) Caroline # (Auto) Eos # (Auto) Baso # (Auto) Abs Immat Gran (auto) Absolute Neuts (auto) Absolute Nucleated RBC Nucleated RBC % Platelet Estimate Ovalocytes Schistocytes PT INR APTT Sodium Potassium Chloride Carbon Dioxide Anion Gap BUN Creatinine Estim Creat Clear Calc Estimated GFR Glucose POC Capillary Glucose 93 98 151 H Calcium Total Bilirubin AST ALT Alkaline Phosphatase Total Protein Albumin 09/27/24 09/27/24 04:45 07:47 WBC 6.2 RBC 3.26 L Hgb 10.8 L Hct 34.6 L MCV 106.1 H MCH 33.1 MCHC 31.2 L RDW 14.3 Plt Count 345 MPV 9.1 Immature Gran % (Auto) 0.2 Neut % (Auto) 63.1 Lymph % (Auto) 24.2 Caroline % (Auto) 7.4 Eos % (Auto) 4.0 Baso % (Auto) 1.1 Lymph # (Auto) 1.50 Caroline # (Auto) 0.5 Eos # (Auto) 0.3 Baso # (Auto) 0.1 Abs Immat Gran (auto) 0.01 Absolute Neuts (auto) 3.9 Absolute Nucleated RBC 0.000 Nucleated RBC % 0.0 Platelet Estimate Slightly increased Ovalocytes 1+ Schistocytes None seen PT 20.6 H INR 1.7 APTT 62.0 H Sodium 134 L Potassium 4.1 Chloride 100 Carbon Dioxide 33 H Anion Gap 1 L BUN 30 H Creatinine 1.10 H Estim Creat Clear Calc 45 Estimated GFR 48 L Glucose 91 POC Capillary Glucose 109 H Calcium 8.4 Total Bilirubin 0.5 AST 33 ALT 22 Alkaline Phosphatase 117 Total Protein 7.0 Albumin 3.5
[2024-09-27 11:58] LABS: Glucose Point of Care 93 mg/dl (65-105)
[2024-09-27] MEDS: ACETAMINOPHEN 325 MG TABLET 650 MG PO (16:02)
[2024-09-27] MEDS: WARFARIN (*PBKC) 7.5 MG TABLET PO (16:02)
[2024-09-27 16:47] LABS: Glucose Point of Care 106 mg/dl (65-105)
[2024-09-27 20:44] LABS: Glucose Point of Care 110 mg/dl (65-105)
[2024-09-27] MEDS: ATORVASTATIN 20 MG TABLET PO (20:54)
[2024-09-28] VITALS (22 sets, daily range): BP systolic 101–122; BP diastolic 44–57; PULSE 62–86; RESP 14–20; TEMP 36.3–36.8; O2SAT 97–100
[2024-09-28] MEDS: HYDROcodone/acetaminophen (*CRX) 10-325 MG TABLET 1 TAB PO ×4 (01:16→20:29)
[2024-09-28 05:09] LABS: Basophils Absolute Auto 0.1 K/mm3 (0.0-0.1); Basophils Percent Auto 1.3 % (0.2-1.2); Eosinophils Absolute Auto 0.2 K/mm3 (0-0.3); Eosinophils Percent Auto 2.7 % (0-4.4); Hematocrit 32.5 % (37.0-47.0); Immature Granulocyte Absolute 0.02 K/mm3 (0.00-0.031); Immature Granulocyte Percent A 0.3 % (0-0.5); Lymphocytes Percent Auto 23.5 % (18.3-44.2); Mean Corpuscular HGB Conc 30.8 g/dl (32-36); Mean Corpuscular Hemoglobin 32.8 pg (26-34); Mean Corpuscular Volume 106.6 fl (80-100); Mean Platelet Volume 9.3 fl (7.4-10.4); Monocytes Absolute Auto 0.5 K/mm3 (0.1-0.6); Monocytes Percent Auto 8.7 % (2.6-8.5); Neutrophils Absolute Auto 3.8 K/mm3 (1.3-6.7); Neutrophils Percent Auto 63.5 % (45.5-73.1); Platelet Count Result 303 k/mm3 (150-375); Red Blood Count 3.05 M/mm3 (4.2-5.4); Red Cell Distribution Width 14.2 % (11.5-14.5)
[2024-09-28 05:24] LABS: Alanine Aminotransferase 27 U/L (6-35); Albumin Level 3.4 g/dL (3.5-5.1); Alkaline Phosphatase 112 U/L (38-126); Anion Gap 3 mmol/L (4-12); Aspartate Amino Transferase 46 U/L (14-36); Bilirubin,Total 0.4 mg/dL (0.2-1.3); Blood Urea Nitrogen 28 mg/dL (7-17); Calcium 8.3 mg/dL (8.4-10.2); Carbon Dioxide 31 mmol/L (22-30); Chloride 100 mmol/L (98-107); Estimated CRCL calculation 45 ml/min; Estimated Glomerular Filt Rate 48; Glucose 90 mg/dL (65-110); Sodium 134 mmol/L (137-145)
[2024-09-28 05:38] LABS: Platelet Estimate Adequate (Adequate); Schistocytes None Seen
[2024-09-28 05:39] LABS: Macrocytosis 1+ (NORMAL)
[2024-09-28] MEDS: ACETAMINOPHEN 325 MG TABLET 650 MG PO ×2 (06:19→16:10)
[2024-09-28] MEDS: LEVOTHYROXINE SODIUM 112 MCG TABLET PO (06:20)
[2024-09-28] MEDS: DICYCLOMINE HCL 10 MG CAPSULE 20 MG PO ×4 (06:20→20:29)
--- NOTE | 2024-09-28 08:00 | PM.IMPN ---
Progress Note: A&P Assessment and Plan (1) Chronic respiratory failure with hypoxia: Code(s): J96.11 - Chronic respiratory failure with hypoxia Status: Acute Assessment and Plan: Patient is on 3-4 L at rest, with exertion and at night. She has a high SpO2 on 3LNC with Sa02 98%. Wean O2 as tolerated to keep SpO2>92%. Follow (2) Abdominal pain: Code(s): R10.9 - Unspecified abdominal pain Status: Acute Assessment and Plan: Severe abdominal pain directly after eating. Possible etiology includes duodenal vs peptic ulcer vs gas build up 2/2 aerophagia from COPD vs other. Patient is s/p cholecystectomy. Had a gastric bypass in the 2007. - Stool studies ordered to rule out infectious cause of abdominal pain - CTA abdomen/pelvis: 1. Nonspecific diarrhea with no obstruction or abnormal bowel wall thickening. 2. Small amount of scattered atherosclerotic plaque along the normal caliber abdominal aorta. No evaluation significant stenosis and several of its branches with no hemodynamically significant stenosis seen at the celiac axis, superior or inferior mesenteric arteries. 3. Mild cardiomegaly. 4. Small sliding-type hiatal hernia. 5. Cirrhosis. - Abdominal US ordered to further evaluate possible cirrhosis seen on CT - GI consulted Plan for EGD on Sunday afternoon Started on Bentyl TIDWM (3) CHF exacerbation: Code(s): I50.9 - Heart failure, unspecified Status: Acute Assessment and Plan: Suspect acute on chronic diastolic CHF exacerbation and possibly pneumonia. Mildly elevated Trop related to CHF. - Symptoms: Shortness of breath. - Current medications: - Supportive treatment Tyl and ibu prn Nebs prn - Fluid restriction 1500 ml/day - Lasix 40 mg IV daily - BNP: 7300 - D dimer positive - Troponin mildly elevated at 0.039 -> 0.035. EKG showing AFib, RAD and Rt BBB. - AB.35/40/94 on 4 L. - Chest x-ray shows mild bibasilar pulmonary edema. - CTA was negative for PE but does show patchy airspace opacities in the right lower lobe suspicious for aspiration and/or pneumonia. - Echo: EF 62%, Grade III diastolic dysfxn, RVE, mild pHTN (54mmHg) - Monitor vital signs, I&Os, BUN/creatinine, daily weights, neuro status and patient is a fall risk - Monitor serum electrolytes, Keep serum Potassium>4 and serum Magnesium>2 and CBC 09/28- will stop IV lasix and start po. continue to monitor i/o (4) Pneumonia: Qualifiers: Aspiration pneumonia type: unspecified Laterality: bilateral Lung location: lower lobe of lung Pneumonia type: aspiration pneumonia Qualified Code(s): J69.0 - Pneumonitis due to inhalation of food and vomit Code(s): J18.9 - Pneumonia, unspecified organism Status: Acute Assessment and Plan: - Chest x-ray shows mild bibasilar pulmonary edema. - CTA was negative for PE but does show patchy airspace opacities in the right lower lobe suspicious for aspiration and/or pneumonia. - Complicating Factors: CHF exacerbation and COPD on chronic O2 supplementation - Antibiotics: Augmentin and doxycycline, course to be completed on 09/26 - Viral PCR: negative for Flu/COVID/RSV - Sputum culture: Normal oropharyngeal maria luz - MRSA negative - supportive treatment - Monitor vital signs, I&Os, neuro status and patient is a fall risk - Follow WBC, serum electrolytes, temperature curves and cultures - Speech eval showing no concerns. She did recommend Easy to chew Level 7 which was ordered. Since aspiration less likely, will stop Flagyl. De-escalate abx and change to oral (5) DVT (deep venous thrombosis): Code(s): I82.409 - Acute embolism and thrombosis of unspecified deep veins of unspecified lower extremity Status: Acute Assessment and Plan: Patient has ethan off her Eliquis prior to admission, unable to afford Eliquis or Xarelto - INR 1.7 on am labs - Doppler showing below the knee DVT right peroneal veins. - Start Lovenox 100 mg subq q12. Will need to stay on Lovenox for a day after patient reaches INR of 2-3 then in can be discontinued with patient receiving only Warfarin. - Started Warfarin 5 mg PO qpm on 09/23, dose increased to 7.5 mg on 09/25. Goal 2-3. Patient will need set up for INR testing at discharge. 09/28 INR 2,5- will give Lovenox dose in am and pm and stop- pharmacy communication sent and Con ZIMMERMAN updated (6) UTI (urinary tract infection): Qualifiers: Hematuria presence: without hematuria Urinary tract infection type: site unspecified Qualified Code(s): N39.0 - Urinary tract infection, site not specified Code(s): N39.0 - Urinary tract infection, site not specified Status: Acute Assessment and Plan: UA is concerning for UTI. UCx collected. Rocephin started. UCx EColi that is relatively sterling-sensitive. Changed to Augmentin to complete a course (7) Macrocytic anemia: Code(s): D53.9 - Nutritional anemia, unspecified Status: Acute Assessment and Plan: Patient with chronic anemia in the past but more recently her hemoglobin was 13 in April. Hemoglobin 10.2 on admission with macrocytosis. - H/H 11.4/36.1 on am labs - Iron studies showed normal iron and TIBC with saturation of 12%. Ferritin normal at 67. - B12 level low at 189 with a normal folate. - Patient with B12 deficiency. Iron stores (Ferritin <100)are low as well. - Replaced B12. Iron replacement as well. - TSH normal. - Monitor H&H and transfuse as necessary. (8) Hypertension: Qualifiers: Hypertension type: essential hypertension Qualified Code(s): I10 - Essential (primary) hypertension Code(s): I10 - Essential (primary) hypertension Status: Acute Assessment and Plan: Chronic, blood pressure was poorly controlled. Home medications were resumed. - Coreg 6.25 mg BID - Hydralazine 10 mg BID, holding as patients blood pressures have been running low - Losartan 100 mg daily, decreased to 50 mg daily given that patient has been consistently hypotensive into the 90s systolic - Spironolactone 25 mg daily, potassium level WNL on am labs. reviewed- stable 09/28- lasix po, stop iv and monitor (9) Chronic atrial fibrillation: Code(s): I48.20 - Chronic atrial fibrillation, unspecified Status: Acute Assessment and Plan: Chronic atrial fibrillation. Echo as above. - She is not on Eliquis despite high [id number] score of 7. - Started on Lovenox 100 mg subq q12. Will need to stay on Lovenox for a day after patient reaches INR of 2-3 then in can be discontinued with patient receiving only Warfarin. - Started Warfarin 5 mg PO qpm on 09/23, dose increased to 7.5 mg on 09/25. Goal 2-3. Patient will need set up for INR testing at discharge. (10) Chronic obstructive pulmonary disease: Code(s): J44.9 - Chronic obstructive pulmonary disease, unspecified Status: Acute Assessment and Plan: - Continue bronchodilators. - Continue Advair. (11) Hypothyroidism (acquired): Code(s): E03.9 - Hypothyroidism, unspecified Status: Acute Assessment and Plan: TSH normal. Continue levothyroxine. (12) Type 2 diabetes mellitus: Code(s): E11.9 - Type 2 diabetes mellitus without complications Status: Acute Assessment and Plan: A1c 5.4%. The patient's blood glucose was reviewed on 09/21 Glucose remains well controlled. Continue AccuCheks covering with sliding scale. Hypoglycemia protocol available as needed. Continue to monitor (13) Obstructive sleep apnea: Code(s): G47.33 - Obstructive sleep apnea (adult) (pediatric) Status: Acute Assessment and Plan: Patient states she is compliant with BiPAP at night. 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 Spent With Patient Time with patient: Greater than 35 minutes Subjective Date/time seen: 09/28/24 08:00 Interval history: 79-year-old female with multiple medical problems including chronic respiratory failure on home oxygen, obstructive sleep apnea, chronic obstructive pulmonary disease, pulmonary hypertension, heart failure with preserved ejection fraction, chronic atrial fibrillation for which she is prescribed anticoagulation however she has not been taking it for a couple of months due to cost, chronic anemia, and anxiety who presented to the emergency department via EMS from home for evaluation of shortness of breath. Pt is seen and examined. Stool culture ordered by GI. Patient has no other complaints denying chest pain, shortness of breath, and palpitations. endoscopy tomorrow 09/29. Pt is calm and pleasant. reports abd pain after she eats. Review of Systems Review of Systems: 12 systems were reviewed and are negative except for as per HPI. All systems reviewed & are unremarkable except as noted in HPI and below Exam Narrative: General: female in no acute respiratory distress who is nontoxic appearing, lying semi recumbent in bed. HEENT: Normocephalic. Atraumatic. Extraocular movement intact. Sclera clear and anicteric. No facial asymmetry. Chest: Lungs are clear but diminished to auscultation bilaterally. No wheezes or crackles. CV: Heart was regular rate. S1-S2. No murmurs, gallops, or rubs. Abd: Abdomen was soft. Mild epigastric tenderness. Nondistended. Positive bowel sounds. No organomegaly or masses. Ext: No clubbing, cyanosis, or edema. 2+ DP pulses bilaterally. Neuro: Patient is alert and oriented x3. Cranial nerves 2-12 are intact. Speech is clear. Const: General: comfortable and no acute distress Eyes: Sclera: sclerae normal Resp: Auscultation: diminished lung sounds Cardio: Rhythm: abnormal rhythm irregularly irregular GI: Auscultation: normal bowel sounds Other: obese Skin: General skin exam: no rashes or lesions noted Neuro: Speech: normal speech Extrem: General: no pedal edema Psych: Affect: normal affect Objective Data Vital Signs Vital Signs: Vital Signs - 24 hr 09/27/24 08:02 09/27/24 09:00 09/27/24 10:50 Temperature 97.6 F Pulse Rate 70 68 75 Respiratory Rate 18 18 Blood Pressure 110/69 Pulse Oximetry 100 Oxygen Delivery Oxygen Flow Rate 09/27/24 11:00 09/27/24 13:00 09/27/24 15:00 Temperature 97.9 F Pulse Rate 76 62 72 Respiratory Rate 18 18 18 Blood Pressure 98/47 L Pulse Oximetry 97 Oxygen Delivery Oxygen Flow Rate 09/27/24 15:10 09/27/24 17:00 09/27/24 20:14 Temperature 98.1 F 97.2 F L Pulse Rate 74 65 78 Respiratory Rate 18 18 18 Blood Pressure 108/43 L 102/47 L Pulse Oximetry 100 100 Oxygen Delivery Oxygen Flow Rate 09/27/24 20:54 09/27/24 21:05 09/27/24 21:05 Temperature Pulse Rate 78 66 66 Respiratory Rate 18 Blood Pressure Pulse Oximetry 99 Oxygen Delivery Nasal Cannula Oxygen Flow Rate 3 09/27/24 21:15 09/27/24 21:15 09/28/24 00:10 Temperature 97.7 F Pulse Rate 67 66 62 Respiratory Rate 18 18 18 Blood Pressure 121/52 L Pulse Oximetry 99 99 Oxygen Delivery Autopap Oxygen Flow Rate 09/27/24 20:00 09/28/24 03:01 09/28/24 04:22 Temperature 98 F Pulse Rate 77 Respiratory Rate 15 18 Blood Pressure 106/45 L Pulse Oximetry 100 99 Oxygen Delivery Nasal Cannula Autopap Oxygen Flow Rate 3 Intake/Output Intake/Output: Intake & Output 09/25/24 09/26/24 09/27/24 09/28/24 23:59 23:59 23:59 23:59 Intake Total 1150 1460 598 390 Output Total 700 Balance 450 1460 598 390 Meds/Results Medications: Active Medications Generic Name Dose Route Start Last Admin Trade Name Freq PRN Reason Stop Dose Admin Acetaminophen 650 mg 09/19/24 22:21 09/28/24 06:19 Acetaminophen 325 Mg Tablet PO 650 mg Q6H PRN Administration Mild Pain (1-3) or Fever Hydrocodone Bitart/Acetaminophen 1 tab 09/28/24 07:45 Hydrocodone/Acetaminophen (*Crx) 10-325 Mg Tablet PO Q6H PRN Pain Rated 7-10 Albuterol 1 - 2 puff 09/19/24 16:27 Albuterol Sulfate (*Sp) Aerosol 1 Puff INHALATION Q4-6H PRN Shortness Of Breath Albuterol 2.5 mg 09/20/24 12:00 09/27/24 21:05 Albuterol Sulfate Neb 2.5 Mg/3 Ml Inh INHALATION 2.5 mg QIDRT ERICKSON Administration Alprazolam 0.5 mg 09/19/24 21:00 09/27/24 20:54 Alprazolam (*Crx) 0.5 Mg Tablet PO 0.5 mg Q12HR ERICKSON Administration Aspirin 81 mg 09/20/24 09:00 09/27/24 08:02 Aspirin 81 Mg Enteric Tablet PO 81 mg QAM ERICKSON Administration Atorvastatin Calcium 20 mg 09/19/24 21:00 09/27/24 20:54 Atorvastatin 20 Mg Tablet PO 20 mg QHS ERICKSON Administration Carvedilol 6.25 mg 09/19/24 21:00 09/27/24 20:54 Carvedilol 6.25 Mg Tablet PO 6.25 mg Q12HR ERICKSON Administration Cyanocobalamin 1,000 mcg 09/21/24 09:00 09/27/24 08:02 Cyanocobalamin 1,000 Mcg Tablet PO 1,000 mcg QAM ERICKSON Administration Dextrose 12.5 gm 09/19/24 22:21 Dextrose 50% 25 Gm/50 Ml Syringe IV PUSH PRN PRN Hypoglycemia Protocol Dicyclomine HCl 20 mg 09/26/24 11:30 09/28/24 06:20 Dicyclomine Hcl 10 Mg Capsule PO 20 mg ACHS ERICKSON Administration Enoxaparin Sodium 105 mg 09/24/24 09:00 09/27/24 20:55 Enoxaparin 120 Mg/0.8 Ml Syringe SUB-Q 105 mg Q12H ERICKSON Administration Ferrous Sulfate 325 mg 09/21/24 09:00 09/27/24 08:02 Ferrous Sulfate [address] PO 325 mg DAILY ERICKSON Administration Furosemide 40 mg 09/26/24 09:00 09/27/24 08:02 Furosemide Inj 40 Mg/4 Ml Vial IV PUSH 40 mg DAILY ERICKSON Administration Glucagon 1 mg 09/19/24 22:21 Glucagon For Inj 1 Mg Vial IM PRN PRN Hypoglycemia Protocol Glucose 15 gm 09/19/24 22:21 Glucose Oral Gel 15 Gm Of Glucse In 37.5 Gm Tube PO PRN PRN Hypoglycemia Protocol Hydralazine HCl 10 mg 09/19/24 17:00 09/27/24 08:02 Hydralazine 10 Mg Tablet PO 10 mg BID ERICKSON Administration Dextrose 1,000 mls @ 100 mls/hr 09/19/24 22:21 Dextrose 5% 1,000 Ml IVPB PRN PRN Hypoglycemia Protocol Insulin Aspart 3 - 6 units 09/20/24 08:00 09/27/24 16:48 Insulin Aspart (*Bkc) 100 Units/Ml SUB-Q Not Given TIDWM [facility] Protocol Insulin Aspart 1 - 3 units 09/20/24 21:00 09/27/24 21:00 Insulin Aspart (*Bkc) 100 Units/Ml SUB-Q Not Given HS [facility] Protocol Levothyroxine Sodium 112 mcg 09/20/24 06:30 09/28/24 06:20 Levothyroxine Sodium 112 Mcg Tablet PO 112 mcg DAILY@0630 ERICKSON Administration Lidocaine 1 patch 09/26/24 10:00 09/27/24 07:48 Lidocaine 5% Patch TRANSDERM Not Given DAILY [facility] Losartan Potassium 50 mg 09/27/24 09:00 09/27/24 08:02 Losartan Potassium 50 Mg Tablet PO 50 mg DAILY ERICKSON Administration Miscellaneous Information 0 each 09/19/24 00:01 09/27/24 07:46 Albuterol Nebs And Hfa Both Ordered - Please Specify When To Use Each Or Discontinue One XX 10/19/24 00:00 Not Given CLARIFY ERICKSON Nitroglycerin 0.4 mg 09/19/24 23:36 09/20/24 07:43 Nitroglycerin Sl 0.4 Mg Tablet SUBLINGUAL 0.4 mg Q5MIN PRN Administration Chest Pain Pantoprazole Sodium 40 mg 09/20/24 09:00 09/27/24 08:03 Pantoprazole 40 Mg Tablet PO 40 mg DAILY ERICKSON Administration Fluticasone/Salmeterol 2 puff 09/20/24 20:00 09/27/24 21:05 Fluticasone/Salmeterol 45-21 Mcg Inhaler 1 Puff INHALATION 2 puff Q12HRT ERICKSON Administration Spironolactone 25 mg 09/20/24 09:00 09/20/24 10:35 Spironolactone 25 Mg Tablet PO Not Given DAILY [facility] Warfarin Sodium 7.5 mg 09/25/24 17:00 09/27/24 16:02 Warfarin (*Pbkc) 7.5 Mg Tablet PO 7.5 mg DAILY@1700 ERICKSON Administration Radiology Results: ITS Impressions Chest X-Ray 09/19/24 10:09 Impression: Probable mild bibasilar pulmonary edema and central congestive change. Chest CTA 09/20/24 08:07 IMPRESSION: 1. No pulmonary collision. 2. Patchy airspace opacities in the right lower lobe which suspicious for aspiration and/or pneumonia. 3. Mild emphysema. 4. Very small right pleural effusion. 5. Cardiomegaly. 6. Enlargement of the central pulmonary arteries consistent with pulmonary arterial hypertension. 7. Small sliding-type hiatal hernia with change of Michelle-en-Y gastric bypass procedure. Venous Doppler Study 09/20/24 13:07 IMPRESSION: 1. [id number] deep venous thrombosis in the right peroneal veins. Findings were discussed with Nicole Barragan, the nurse caring for the patient, at 1:12 PM. 2. No deep venous thrombosis in the left lower limb. Modified Barium Swallow 09/20/24 13:27 IMPRESSION: Patient tolerated regular consistency oral feedings in the upright position. Please correlate with speech pathologist findings and specific feeding recommendations. Abdomen/Pelvis CTA 09/24/24 15:13 IMPRESSION: 1. Nonspecific diarrhea with no obstruction or abnormal bowel wall thickening. 2. Small amount of scattered atherosclerotic plaque along the normal caliber abdominal aorta. No evaluation significant stenosis and several of its branches with no hemodynamically significant stenosis seen at the celiac axis, superior or inferior mesenteric arteries. 3. Mild cardiomegaly. 4. Small sliding-type hiatal hernia. 5. Cirrhosis. Abdomen Ultrasound 09/27/24 16:35 IMPRESSION: Sonographic findings suggestive of cirrhosis. Labs Labs: Laboratory Results - last 24 hr 09/27/24 09/27/24 09/27/24 11:56 16:43 20:25 WBC RBC Hgb Hct MCV MCH MCHC RDW Plt Count MPV Immature Gran % (Auto) Neut % (Auto) Lymph % (Auto) [place] % (Auto) Eos % (Auto) Baso % (Auto) Lymph # (Auto) [place] # (Auto) Eos # (Auto) Baso # (Auto) Abs Immat Gran (auto) Absolute Neuts (auto) Absolute Nucleated RBC Nucleated RBC % Platelet Estimate Macrocytosis Schistocytes Sodium Potassium Chloride Carbon Dioxide Anion Gap BUN Creatinine Estim Creat Clear Calc Estimated GFR Glucose POC Capillary Glucose 93 106 H 110 H Calcium Total Bilirubin AST ALT Alkaline Phosphatase Total Protein Albumin 09/28/24 04:11 WBC 6.0 RBC 3.05 L Hgb 10.0 L Hct 32.5 L MCV 106.6 H MCH 32.8 MCHC 30.8 L RDW 14.2 Plt Count 303 MPV 9.3 Immature Gran % (Auto) 0.3 Neut % (Auto) 63.5 Lymph % (Auto) 23.5 [place] % (Auto) 8.7 H Eos % (Auto) 2.7 Baso % (Auto) 1.3 H Lymph # (Auto) 1.40 [place] # (Auto) 0.5 Eos # (Auto) 0.2 Baso # (Auto) 0.1 Abs Immat Gran (auto) 0.02 Absolute Neuts (auto) 3.8 Absolute Nucleated RBC 0.000 Nucleated RBC % 0.0 Platelet Estimate Adequate Macrocytosis 1+ Schistocytes None seen Sodium 134 L Potassium 4.0 Chloride 100 Carbon Dioxide 31 H Anion Gap 3 L BUN 28 H Creatinine 1.10 H Estim Creat Clear Calc 45 Estimated GFR 48 L Glucose 90 POC Capillary Glucose Calcium 8.3 L Total Bilirubin 0.4 AST 46 H ALT 27 Alkaline Phosphatase 112 Total Protein 6.0 L Albumin 3.4 L Quality VTE Prophylaxis VTE prophylaxis: pharmacologic ordered
[2024-09-28 08:02] LABS: Glucose Point of Care 95 mg/dl (65-105)
[2024-09-28] MEDS: FUROSEMIDE INJ 40 MG/4 ML VIAL IV PUSH (08:06)
[2024-09-28] MEDS: ASPIRIN 81 MG ENTERIC TABLET PO (08:09)
[2024-09-28] MEDS: carvediloL 6.25 MG TABLET PO ×2 (08:09→20:29)
[2024-09-28] MEDS: LOSARTAN POTASSIUM 50 MG TABLET PO (08:09)
[2024-09-28] MEDS: PANTOPRAZOLE 40 MG TABLET PO (08:09)
[2024-09-28] MEDS: CYANOCOBALAMIN 1,000 MCG TABLET 1000 MCG PO (08:09)
[2024-09-28] MEDS: ENOXAPARIN 120 MG/0.8 ML SYRINGE 105 MG SUB-Q ×2 (08:10→20:49)
[2024-09-28] MEDS: FERROUS SULFATE 325 MG TABLET DR PO (08:12)
[2024-09-28] MEDS: ALPRAZolam (*CRX) 0.5 MG TABLET PO ×2 (08:13→20:29)
[2024-09-28] MEDS: ALBUTEROL SULFATE NEB 2.5 MG/3 ML INH INHALATION ×4 (08:55→20:22)
[2024-09-28 08:58] LABS: INR 2.5; Prothrombin Time 27.6 Seconds (11.1-14.7)
[2024-09-28] MEDS: FLUTICASONE/SALMETEROL 45-21 MCG INHALER 1 PUFF 2 PUFF INHALATION ×2 (09:05→20:23)
--- NOTE | 2024-09-28 12:03 | WPDGIPROGNO ---
Progress Note: A&P Assessment and Plan (1) Abdominal pain: Code(s): R10.9 - Unspecified abdominal pain Status: Acute (2) DVT (deep venous thrombosis): Code(s): I82.409 - Acute embolism and thrombosis of unspecified deep veins of unspecified lower extremity Status: Acute Plan patient is doing well at this point will keep the patient NPO after midnight for upper endoscopy for the epigastric pain to rule out any peptic ulcer disease. Patient also has cirrhosis on the ultrasound upper endoscopy we can also rule out any esophageal varices. I encouraged the patient to follow-up in the GI office afterwards for cirrhosis which appears to be compensated and most likely 2nd to fatty liver disease. Further workup of cirrhosis can be carried out as outpatient in the office. Regular GI team resume patient care on Sunday Subjective Date/time seen: 09/28/24 12:03 Interval history: overall patient is doing well still has epigastric pain. Patient is scheduled for upper endoscopy tomorrow ultrasound showed cirrhosis of the liver which has been discussed Review of Systems Review of Systems: Otherwise negative Exam Narrative: no acute distress Neck: Other: supple Resp: Other: Air entry equal bilateral clear Cardio: Other: S1-S2 regular rate rhythm GI: Other: mildly tender in the epigastric area no rebound no guarding bowel sounds positive Objective Data Vital Signs Vital Signs: Vital Signs - 24 hr 09/27/24 13:00 09/27/24 15:00 09/27/24 15:10 Temperature 97.9 F Pulse Rate 62 72 74 Respiratory Rate 18 18 18 Blood Pressure 98/47 L Pulse Oximetry 97 Oxygen Delivery Oxygen Flow Rate Fraction of Inspired Oxygen 09/27/24 17:00 09/27/24 20:14 09/27/24 20:54 Temperature 98.1 F 97.2 F L Pulse Rate 65 78 78 Respiratory Rate 18 18 Blood Pressure 108/43 L 102/47 L Pulse Oximetry 100 100 Oxygen Delivery Oxygen Flow Rate Fraction of Inspired Oxygen 09/27/24 21:05 09/27/24 21:05 09/27/24 21:15 Temperature Pulse Rate 66 66 67 Respiratory Rate 18 18 Blood Pressure Pulse Oximetry 99 Oxygen Delivery Nasal Cannula Oxygen Flow Rate 3 Fraction of Inspired Oxygen 09/27/24 21:15 09/28/24 00:10 09/27/24 20:00 Temperature 97.7 F Pulse Rate 66 62 Respiratory Rate 18 18 Blood Pressure 121/52 L Pulse Oximetry 99 99 100 Oxygen Delivery Autopap Nasal Cannula Oxygen Flow Rate 3 Fraction of Inspired Oxygen 09/28/24 03:01 09/28/24 04:22 09/28/24 08:09 Temperature 98 F Pulse Rate 77 72 Respiratory Rate 15 18 Blood Pressure 106/45 L Pulse Oximetry 99 Oxygen Delivery Autopap Oxygen Flow Rate Fraction of Inspired Oxygen 09/28/24 08:19 09/28/24 08:55 09/28/24 08:55 Temperature 97.3 F L Pulse Rate 67 67 Respiratory Rate 18 20 Blood Pressure 120/51 L Pulse Oximetry 100 98 Oxygen Delivery Nasal Cannula Oxygen Flow Rate 3 Fraction of Inspired Oxygen 32 09/28/24 09:05 09/28/24 08:13 09/28/24 12:00 Temperature Pulse Rate 70 Respiratory Rate 20 Blood Pressure Pulse Oximetry 99 100 Oxygen Delivery Nasal Cannula Nasal Cannula Oxygen Flow Rate 3 3 Fraction of Inspired Oxygen 32 09/28/24 12:00 Temperature Pulse Rate 70 Respiratory Rate 20 Blood Pressure Pulse Oximetry Oxygen Delivery Oxygen Flow Rate Fraction of Inspired Oxygen Intake/Output Intake/Output: Intake & Output 09/25/24 09/26/24 09/27/24 09/28/24 23:59 23:59 23:59 23:59 Intake Total 1150 1460 598 630 Output Total 700 Balance 450 1460 598 630 Meds/Results Medications: Active Medications Generic Name Dose Route Start Last Admin Trade Name Freq PRN Reason Stop Dose Admin Acetaminophen 650 mg 09/19/24 22:21 09/28/24 06:19 Acetaminophen 325 Mg Tablet PO 650 mg Q6H PRN Administration Mild Pain (1-3) or Fever Hydrocodone Bitart/Acetaminophen 1 tab 09/28/24 07:45 09/28/24 08:14 Hydrocodone/Acetaminophen (*Crx) 10-325 Mg Tablet PO 1 tab Q6H PRN Administration Pain Rated 7-10 Albuterol 1 - 2 puff 09/19/24 16:27 Albuterol Sulfate (*Sp) Aerosol 1 Puff INHALATION Q4-6H PRN Shortness Of Breath Albuterol 2.5 mg 09/20/24 12:00 09/28/24 12:00 Albuterol Sulfate Neb 2.5 Mg/3 Ml Inh INHALATION 2.5 mg QIDRT ERICKSON Administration Alprazolam 0.5 mg 09/19/24 21:00 09/28/24 08:13 Alprazolam (*Crx) 0.5 Mg Tablet PO 0.5 mg Q12HR ERICKSON Administration Aspirin 81 mg 09/20/24 09:00 09/28/24 08:09 Aspirin 81 Mg Enteric Tablet PO 81 mg QAM ERICKSON Administration Atorvastatin Calcium 20 mg 09/19/24 21:00 09/27/24 20:54 Atorvastatin 20 Mg Tablet PO 20 mg QHS ERICKSON Administration Carvedilol 6.25 mg 09/19/24 21:00 09/28/24 08:09 Carvedilol 6.25 Mg Tablet PO 6.25 mg Q12HR ERICKSON Administration Cyanocobalamin 1,000 mcg 09/21/24 09:00 09/28/24 08:09 Cyanocobalamin 1,000 Mcg Tablet PO 1,000 mcg QAM ERICKSON Administration Dextrose 12.5 gm 09/19/24 22:21 Dextrose 50% 25 Gm/50 Ml Syringe IV PUSH PRN PRN Hypoglycemia Protocol Dicyclomine HCl 20 mg 09/26/24 11:30 09/28/24 10:44 Dicyclomine Hcl 10 Mg Capsule PO 20 mg ACHS ERICKSON Administration Enoxaparin Sodium 105 mg 09/24/24 09:00 09/28/24 08:10 Enoxaparin 120 Mg/0.8 Ml Syringe SUB-Q 105 mg Q12H ERICKSON Administration Ferrous Sulfate 325 mg 09/21/24 09:00 09/28/24 08:12 Ferrous Sulfate [address] PO 325 mg DAILY ERICKSON Administration Furosemide 40 mg 09/26/24 09:00 09/28/24 08:06 Furosemide Inj 40 Mg/4 Ml Vial IV PUSH 40 mg DAILY ERICKSON Administration Glucagon 1 mg 09/19/24 22:21 Glucagon For Inj 1 Mg Vial IM PRN PRN Hypoglycemia Protocol Glucose 15 gm 09/19/24 22:21 Glucose Oral Gel 15 Gm Of Glucse In 37.5 Gm Tube PO PRN PRN Hypoglycemia Protocol Hydralazine HCl 10 mg 09/19/24 17:00 09/27/24 08:02 Hydralazine 10 Mg Tablet PO 10 mg BID ERICKSON Administration Dextrose 1,000 mls @ 100 mls/hr 09/19/24 22:21 Dextrose 5% 1,000 Ml IVPB PRN PRN Hypoglycemia Protocol Insulin Aspart 3 - 6 units 09/20/24 08:00 09/28/24 08:15 Insulin Aspart (*Bkc) 100 Units/Ml SUB-Q Not Given TIDWM PENDING SALE TO [facility] Protocol Insulin Aspart 1 - 3 units 09/20/24 21:00 09/27/24 21:00 Insulin Aspart (*Bkc) 100 Units/Ml SUB-Q Not Given HS PENDING SALE TO [facility] Protocol Levothyroxine Sodium 112 mcg 09/20/24 06:30 09/28/24 06:20 Levothyroxine Sodium 112 Mcg Tablet PO 112 mcg DAILY@0630 ERICKSON Administration Lidocaine 1 patch 09/26/24 10:00 09/28/24 09:29 Lidocaine 5% Patch TRANSDERM Not Given DAILY ERICKSON Losartan Potassium 50 mg 09/27/24 09:00 09/28/24 08:09 Losartan Potassium 50 Mg Tablet PO 50 mg DAILY ERICKSON Administration Miscellaneous Information 0 each 09/19/24 00:01 09/27/24 07:46 Albuterol Nebs And Hfa Both Ordered - Please Specify When To Use Each Or Discontinue One XX 10/19/24 00:00 Not Given CLARIFY ERICKSON Nitroglycerin 0.4 mg 09/19/24 23:36 09/20/24 07:43 Nitroglycerin Sl 0.4 Mg Tablet SUBLINGUAL 0.4 mg Q5MIN PRN Administration Chest Pain Pantoprazole Sodium 40 mg 09/20/24 09:00 09/28/24 08:09 Pantoprazole 40 Mg Tablet PO 40 mg DAILY ERICKSON Administration Fluticasone/Salmeterol 2 puff 09/20/24 20:00 09/28/24 09:05 Fluticasone/Salmeterol 45-21 Mcg Inhaler 1 Puff INHALATION 2 puff Q12HRT ERICKSON Administration Spironolactone 25 mg 09/20/24 09:00 09/20/24 10:35 Spironolactone 25 Mg Tablet PO Not Given DAILY ERICKSON Warfarin Sodium 7.5 mg 09/25/24 17:00 09/27/24 16:02 Warfarin (*Pbkc) 7.5 Mg Tablet PO 7.5 mg DAILY@1700 ERICKSON Administration Radiology Results: ITS Impressions Chest X-Ray 09/19/24 10:09 Impression: Probable mild bibasilar pulmonary edema and central congestive change. Chest CTA 09/20/24 08:07 IMPRESSION: 1. No pulmonary collision. 2. Patchy airspace opacities in the right lower lobe which suspicious for aspiration and/or pneumonia. 3. Mild emphysema. 4. Very small right pleural effusion. 5. Cardiomegaly. 6. Enlargement of the central pulmonary arteries consistent with pulmonary arterial hypertension. 7. Small sliding-type hiatal hernia with change of Michelle-en-Y gastric bypass procedure. Venous Doppler Study 09/20/24 13:07 IMPRESSION: 1. [id number] deep venous thrombosis in the right peroneal veins. Findings were discussed with Nicole Barragan, the nurse caring for the patient, at 1:12 PM. 2. No deep venous thrombosis in the left lower limb. Modified Barium Swallow 09/20/24 13:27 IMPRESSION: Patient tolerated regular consistency oral feedings in the upright position. Please correlate with speech pathologist findings and specific feeding recommendations. Abdomen/Pelvis CTA 09/24/24 15:13 IMPRESSION: 1. Nonspecific diarrhea with no obstruction or abnormal bowel wall thickening. 2. Small amount of scattered atherosclerotic plaque along the normal caliber abdominal aorta. No evaluation significant stenosis and several of its branches with no hemodynamically significant stenosis seen at the celiac axis, superior or inferior mesenteric arteries. 3. Mild cardiomegaly. 4. Small sliding-type hiatal hernia. 5. Cirrhosis. Abdomen Ultrasound 09/27/24 16:35 IMPRESSION: Sonographic findings suggestive of cirrhosis. Labs Labs: Laboratory Results - last 24 hr 09/27/24 09/27/24 09/28/24 16:43 20:25 04:11 WBC 6.0 RBC 3.05 L Hgb 10.0 L Hct 32.5 L MCV 106.6 H MCH 32.8 MCHC 30.8 L RDW 14.2 Plt Count 303 MPV 9.3 Immature Gran % (Auto) 0.3 Neut % (Auto) 63.5 Lymph % (Auto) 23.5 [place] % (Auto) 8.7 H Eos % (Auto) 2.7 Baso % (Auto) 1.3 H Lymph # (Auto) 1.40 [place] # (Auto) 0.5 Eos # (Auto) 0.2 Baso # (Auto) 0.1 Abs Immat Gran (auto) 0.02 Absolute Neuts (auto) 3.8 Absolute Nucleated RBC 0.000 Nucleated RBC % 0.0 Platelet Estimate Adequate Macrocytosis 1+ Schistocytes None seen PT INR Sodium 134 L Potassium 4.0 Chloride 100 Carbon Dioxide 31 H Anion Gap 3 L BUN 28 H Creatinine 1.10 H Estim Creat Clear Calc 45 Estimated GFR 48 L Glucose 90 POC Capillary Glucose 106 H 110 H Calcium 8.3 L Total Bilirubin 0.4 AST 46 H ALT 27 Alkaline Phosphatase 112 Total Protein 6.0 L Albumin 3.4 L 09/28/24 09/28/24 07:59 08:18 WBC RBC Hgb Hct MCV MCH MCHC RDW Plt Count MPV Immature Gran % (Auto) Neut % (Auto) Lymph % (Auto) [place] % (Auto) Eos % (Auto) Baso % (Auto) Lymph # (Auto) [place] # (Auto) Eos # (Auto) Baso # (Auto) Abs Immat Gran (auto) Absolute Neuts (auto) Absolute Nucleated RBC Nucleated RBC % Platelet Estimate Macrocytosis Schistocytes PT 27.6 H D INR 2.5 Sodium Potassium Chloride Carbon Dioxide Anion Gap BUN Creatinine Estim Creat Clear Calc Estimated GFR Glucose POC Capillary Glucose 95 Calcium Total Bilirubin AST ALT Alkaline Phosphatase Total Protein Albumin
[2024-09-28 12:11] LABS: Glucose Point of Care 88 mg/dl (65-105)
[2024-09-28] MEDS: WARFARIN (*PBKC) 7.5 MG TABLET PO (16:06)
[2024-09-28 16:52] LABS: Glucose Point of Care 118 mg/dl (65-105)
[2024-09-28 20:23] LABS: Glucose Point of Care 100 mg/dl (65-105)
[2024-09-28] MEDS: ATORVASTATIN 20 MG TABLET PO (20:29)
[2024-09-29] VITALS (24 sets, daily range): BP systolic 106–123; BP diastolic 43–67; PULSE 60–80; RESP 13–22; TEMP 36.1–36.6; O2SAT 96–100
[2024-09-29] MEDS: HYDROcodone/acetaminophen (*CRX) 10-325 MG TABLET 1 TAB PO ×3 (02:38→14:39)
[2024-09-29] MEDS: LEVOTHYROXINE SODIUM 112 MCG TABLET PO (06:19)
[2024-09-29] MEDS: DICYCLOMINE HCL 10 MG CAPSULE 20 MG PO ×4 (06:19→20:22)
[2024-09-29] MEDS: ACETAMINOPHEN 325 MG TABLET 650 MG PO (06:19)
[2024-09-29 06:32] LABS: Basophils Absolute Auto 0.1 K/mm3 (0.0-0.1); Basophils Percent Auto 0.9 % (0.2-1.2); Eosinophils Absolute Auto 0.1 K/mm3 (0-0.3); Eosinophils Percent Auto 1.8 % (0-4.4); Hemoglobin 10.2 g/dL (12.0-15.0); Immature Granulocyte Absolute 0.02 K/mm3 (0.00-0.031); Immature Granulocyte Percent A 0.4 % (0-0.5); Lymphocytes Absolute Auto 1.06 K/mm3 (0.9-3.2); Lymphocytes Percent Auto 19.3 % (18.3-44.2); Mean Corpuscular HGB Conc 30.9 g/dl (32-36); Mean Corpuscular Hemoglobin 32.8 pg (26-34); Mean Corpuscular Volume 106.1 fl (80-100); Mean Platelet Volume 9.5 fl (7.4-10.4); Monocytes Absolute Auto 0.4 K/mm3 (0.1-0.6); Monocytes Percent Auto 7.5 % (2.6-8.5); Neutrophils Absolute Auto 3.9 K/mm3 (1.3-6.7); Neutrophils Percent Auto 70.1 % (45.5-73.1); Platelet Count Result 300 k/mm3 (150-375); Red Blood Count 3.11 M/mm3 (4.2-5.4); Red Cell Distribution Width 14.2 % (11.5-14.5); White Blood Count 5.5 K/mm3 (4.5-10.0)
[2024-09-29 06:42] LABS: INR 2.8; Prothrombin Time 29.8 Seconds (11.1-14.7)
[2024-09-29 06:44] LABS: Alanine Aminotransferase 33 U/L (6-35); Albumin Level 3.6 g/dL (3.5-5.1); Alkaline Phosphatase 112 U/L (38-126); Anion Gap 4 mmol/L (4-12); Aspartate Amino Transferase 50 U/L (14-36); Bilirubin,Total 0.5 mg/dL (0.2-1.3); Blood Urea Nitrogen 26 mg/dL (7-17); Calcium 8.5 mg/dL (8.4-10.2); Carbon Dioxide 29 mmol/L (22-30); Chloride 102 mmol/L (98-107); Estimated CRCL calculation 62 ml/min; Estimated Glomerular Filt Rate > 60; Glucose 89 mg/dL (65-110); Potassium 4.3 mmol/L (3.4-5.0); Sodium 135 mmol/L (137-145)
[2024-09-29 07:12] LABS: Macrocytosis 2+ (NORMAL); Platelet Estimate Adequate (Adequate); Schistocytes None Seen
--- NOTE | 2024-09-29 08:00 | P.PNIM_ITS ---
Progress Note: A&P Assessment and Plan (1) Chronic respiratory failure with hypoxia: Code(s): J96.11 - Chronic respiratory failure with hypoxia Status: Acute Assessment and Plan: * Patient is on 3-4 L at rest, with exertion and at night. * She has a high SpO2 on 3LNC with Sa02 98%. * Wean O2 as tolerated to keep SpO2>92%. * Follow (2) Abdominal pain: Code(s): R10.9 - Unspecified abdominal pain Status: Acute Assessment and Plan: Severe abdominal pain directly after eating. Possible etiology includes duodenal vs peptic ulcer vs gas build up 2/2 aerophagia from COPD vs other. Patient is s/p cholecystectomy. Had a gastric bypass in the 2007. - Stool studies ordered to rule out infectious cause of abdominal pain - CTA abdomen/pelvis: 1. Nonspecific diarrhea with no obstruction or abnormal bowel wall thickening. 2. Small amount of scattered atherosclerotic plaque along the normal caliber abdominal aorta. No evaluation significant stenosis and several of its branches with no hemodynamically significant stenosis seen at the celiac axis, superior o r inferior mesenteric arteries. 3. Mild cardiomegaly. 4. Small sliding-type hiatal hernia. 5. Cirrhosis. - Abdominal US ordered to further evaluate possible cirrhosis seen on CT: Sonographic findings suggestive of cirrhosis. - GI consulted s/p EGD on 09/29: unremarkable Started on Bentyl TIDWM Follow-up in the GI office afterwards for cirrhosis which appears to be compensated and most likely 2nd to fatty liver disease. (3) CHF exacerbation: Code(s): I50.9 - Heart failure, unspecified Status: Acute Assessment and Plan: Suspect acute on chronic diastolic CHF exacerbation and possibly pneumonia. Mildly elevated Trop related to CHF. - Symptoms: Shortness of breath. - Current medications: - Supportive treatment Tyl and ibu prn Nebs prn - Fluid restriction 1500 ml/day - Lasix 80 mg PO daily - BNP: 7300 - D dimer positive - Troponin mildly elevated at 0.039 -> 0.035. EKG showing AFib, RAD and Rt BBB. - AB.35/40/94 on 4 L. - Chest x-ray shows mild bibasilar pulmonary edema. - CTA was negative for PE but does show patchy airspace opacities in the right lower lobe suspicious for aspiration and/or pneumonia. - Echo: EF 62%, Grade III diastolic dysfxn, RVE, mild pHTN (54mmHg) - Monitor vital signs, I&Os, BUN/creatinine, daily weights, neuro status and patient is a fall risk - Monitor serum electrolytes, Keep serum Potassium>4 and serum Magnesium>2 and CBC (4) Pneumonia: Qualifiers: Aspiration pneumonia type: unspecified Laterality: bilateral Lung location: lower lobe of lung Pneumonia type: aspiration pneumonia Qualified Code(s): J69.0 - Pneumonitis due to inhalation of food and vomit Code(s): J18.9 - Pneumonia, unspecified organism Status: Acute Assessment and Plan: - Chest x-ray shows mild bibasilar pulmonary edema. - CTA was negative for PE but does show patchy airspace opacities in the right lower lobe suspicious for aspiration and/or pneumonia. - Complicating Factors: CHF exacerbation and COPD on chronic O2 supplementation - Antibiotics: Augmentin and doxycycline, course to be completed on 09/26 - Viral PCR: negative for Flu/COVID/RSV - Sputum culture: Normal oropharyngeal maria luz - MRSA negative - supportive treatment - Monitor vital signs, I&Os, neuro status and patient is a fall risk - Follow WBC, serum electrolytes, temperature curves and cultures - Speech eval showing no concerns. She did recommend Easy to chew Level 7 which was ordered. * Since aspiration less likely, will stop Flagyl. De-escalate abx and change to oral Resolved. (5) DVT (deep venous thrombosis): Code(s): I82.409 - Acute embolism and thrombosis of unspecified deep veins of unspecified lower extremity Status: Acute Assessment and Plan: Patient has ethan off her Eliquis prior to admission, unable to afford Eliquis or Xarelto - INR 2.8 on am labs - Doppler showing below the knee DVT right peroneal veins. - Start Lovenox 100 mg subq q12. Will need to stay on Lovenox for a day after patient reaches INR of 2-3 then in can be discontinued with patient receiving only Warfarin. Lovenox discontinued on 09/28. - Started Warfarin 5 mg PO qpm on 09/23, dose increased to 7.5 mg on 09/25. Decreased back to 5.0 mg on 09/29 as INR was progressively increasing. Goal 2-3. Patient will need set up for INR testing at discharge. 09/28 INR 2,5- will give Lovenox dose in am and pm and stop- pharmacy communication sent and RNCon updated (6) UTI (urinary tract infection): Qualifiers: Hematuria presence: without hematuria Urinary tract infection type: site unspecified Qualified Code(s): N39.0 - Urinary tract infection, site not specified Code(s): N39.0 - Urinary tract infection, site not specified Status: Acute Assessment and Plan: UA is concerning for UTI. UCx collected. Rocephin started. UCx EColi that is relatively sterling-sensitive. Changed to Augmentin to complete a course Resolved. 09/29: Endorsing vaginal itching concerning for yeast infection. Given 1x dose of fluconazole. (7) Macrocytic anemia: Code(s): D53.9 - Nutritional anemia, unspecified Status: Acute Assessment and Plan: Patient with chronic anemia in the past but more recently her hemoglobin was 13 in April. Hemoglobin 10.2 on admission with macrocytosis. - H/H 10.2/33 on am labs - Iron studies showed normal iron and TIBC with saturation of 12%. Ferritin normal at 67. - B12 level low at 189 with a normal folate. - Patient with B12 deficiency. Iron stores (Ferritin <100)are low as well. - Replaced B12. Iron replacement as well. - TSH normal. - Monitor H&H and transfuse as necessary. (8) Hypertension: Qualifiers: Hypertension type: essential hypertension Qualified Code(s): I10 - Essential (primary) hypertension Code(s): I10 - Essential (primary) hypertension Status: Acute Assessment and Plan: Chronic, blood pressure was poorly controlled. Home medications were resumed. - Lasix 80 mg PO daily - Coreg 6.25 mg BID - Hydralazine 10 mg BID, holding as patients blood pressures have been running low - Losartan 100 mg daily, decreased to 50 mg daily given that patient has been consistently hypotensive into the 90s systolic. Patient continues to be hypotensive. Losartan placed on hold. - Spironolactone 25 mg daily, potassium level WNL on am labs. (9) Chronic atrial fibrillation: Code(s): I48.20 - Chronic atrial fibrillation, unspecified Status: Acute Assessment and Plan: Chronic atrial fibrillation. Echo as above. - She is not on Eliquis despite high [id number] score of 7. - Start Lovenox 100 mg subq q12. Will need to stay on Lovenox for a day after patient reaches INR of 2-3 then in can be discontinued with patient receiving only Warfarin. Lovenox discontinued on 09/28. - Started Warfarin 5 mg PO qpm on 09/23, dose increased to 7.5 mg on 09/25. Decreased back to 5.0 mg on 09/29 as INR was progressively increasing. Goal 2-3. Patient will need set up for INR testing at discharge. (10) Chronic obstructive pulmonary disease: Code(s): J44.9 - Chronic obstructive pulmonary disease, unspecified Status: Acute Assessment and Plan: - Continue bronchodilators. - Continue Advair. (11) Hypothyroidism (acquired): Code(s): E03.9 - Hypothyroidism, unspecified Status: Acute Assessment and Plan: * TSH normal. * Continue levothyroxine. (12) Type 2 diabetes mellitus: Code(s): E11.9 - Type 2 diabetes mellitus without complications Status: Acute Assessment and Plan: * A1c 5.4%. The patient's blood glucose was reviewed on 09/21 * Glucose remains well controlled. * Continue AccuCheks covering with sliding scale. Hypoglycemia protocol available as needed. * Continue to monitor (13) Obstructive sleep apnea: Code(s): G47.33 - Obstructive sleep apnea (adult) (pediatric) Status: Acute Assessment and Plan: * Patient states she is compliant with BiPAP at night. 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 Spent With Patient Time with patient: 25 - 35 minutes Subjective Date/time seen: 09/29/24 08:00 Interval history: 79-year-old female with multiple medical problems including chronic respiratory failure on home oxygen, obstructive sleep apnea, chronic obstructive pulmonary disease, pulmonary hypertension, heart failure with preserved ejection fraction, chronic atrial fibrillation for which she is prescribed anticoagulation however she has not been taking it for a couple of months due to cost, chronic anemia, and anxiety who presented to the emergency department via EMS from home for evaluation of shortness of breath. Patient is pleasant lying comfortably in bed. She states that she is feeling much better today. She continues to have abdominal pain following meals, but notes that this has improved and is not with every meal as it was previously. EGD unremarkable. She endorses vaginal itching without discharge or pain/burning sensation that is similar to her prior yeast infections. Given one time dose of fluconazole. Patient has no other complaints denying chest pain, shortness of breath, nausea/vomiting. Review of Systems Review of Systems: All systems reviewed & are unremarkable except as noted in HPI and below Exam Narrative: AF HR 70 RR 18 SPO2 100 3L NC (baseline) BP 106/55 General: female in no acute respiratory distress who is nontoxic appearing, lying semi recumbent in bed. HEENT: Normocephalic. Atraumatic. Extraocular movement intact. Sclera clear and anicteric. No facial asymmetry. Chest: Lungs are clear but diminished to auscultation bilaterally. No wheezes or crackles. CV: Heart was regular rate. S1-S2. No murmurs, gallops, or rubs. Abd: Abdomen was soft. No abdominal tenderness. Nondistended. Positive bowel sounds. No organomegaly or masses. Ext: No clubbing, cyanosis, or edema. 2+ DP pulses bilaterally. Neuro: Patient is alert and oriented x3. Cranial nerves 2-12 are intact. Speech is clear. Objective Data Vital Signs Vital Signs: Vital Signs - 24 hr 09/28/24 08:09 09/28/24 08:19 09/28/24 08:55 Temperature 97.3 F L Pulse Rate 72 67 Respiratory Rate 18 Blood Pressure 120/51 L Pulse Oximetry 100 98 Oxygen Delivery Nasal Cannula Oxygen Flow Rate 3 Fraction of Inspired Oxygen 32 09/28/24 08:55 09/28/24 09:05 09/28/24 08:13 Temperature Pulse Rate 67 70 Respiratory Rate 20 20 Blood Pressure Pulse Oximetry 99 Oxygen Delivery Nasal Cannula Oxygen Flow Rate 3 Fraction of Inspired Oxygen 09/28/24 12:00 09/28/24 12:00 09/28/24 12:10 Temperature Pulse Rate 70 71 Respiratory Rate 20 20 Blood Pressure Pulse Oximetry 100 Oxygen Delivery Nasal Cannula Oxygen Flow Rate 3 Fraction of Inspired Oxygen 32 09/28/24 12:24 09/28/24 16:00 09/28/24 16:00 Temperature 97.6 F Pulse Rate 64 78 Respiratory Rate 18 20 Blood Pressure 101/57 L Pulse Oximetry 100 100 Oxygen Delivery Nasal Cannula Oxygen Flow Rate 3 Fraction of Inspired Oxygen 32 09/28/24 16:09 09/28/24 16:51 09/28/24 20:23 Temperature 97.8 F Pulse Rate 75 76 75 Respiratory Rate 20 18 20 Blood Pressure 122/50 L Pulse Oximetry 98 Oxygen Delivery Oxygen Flow Rate Fraction of Inspired Oxygen 09/28/24 20:26 09/28/24 20:34 09/28/24 20:36 Temperature Pulse Rate 75 76 Respiratory Rate 16 20 Blood Pressure Pulse Oximetry 98 98 Oxygen Delivery Nasal Cannula Autopap Oxygen Flow Rate 3 Fraction of Inspired Oxygen 32 09/28/24 20:29 09/28/24 20:18 09/28/24 20:35 Temperature 98.2 F Pulse Rate 86 71 76 Respiratory Rate 14 20 Blood Pressure 105/44 L Pulse Oximetry 97 98 Oxygen Delivery Autopap Oxygen Flow Rate Fraction of Inspired Oxygen 32 09/28/24 23:47 09/29/24 02:06 09/29/24 03:31 Temperature 97.6 F 97.5 F L Pulse Rate 71 68 Respiratory Rate 16 16 Blood Pressure 108/50 L 113/43 L Pulse Oximetry 100 100 Oxygen Delivery Autopap Oxygen Flow Rate Fraction of Inspired Oxygen Intake/Output Intake/Output: Intake & Output 09/26/24 09/27/24 09/28/24 09/29/24 23:59 23:59 23:59 23:59 Intake Total 6040 185 9161 768 Output Total 670 Balance 1554 790 2237 98 Meds/Results Medications: Active Medications Generic Name Dose Route Start Last Admin Trade Name Freq PRN Reason Stop Dose Admin Acetaminophen 650 mg 09/19/24 22:21 09/29/24 06:19 Acetaminophen 325 Mg Tablet PO 650 mg Q6H PRN Administration Mild Pain (1-3) or Fever Hydrocodone Bitart/Acetaminophen 1 tab 09/28/24 07:45 09/29/24 02:38 Hydrocodone/Acetaminophen (*Crx) 10-325 Mg Tablet PO 1 tab Q6H PRN Administration Pain Rated 7-10 Albuterol 1 - 2 puff 09/19/24 16:27 Albuterol Sulfate (*Sp) Aerosol 1 Puff INHALATION Q4-6H PRN Shortness Of Breath Albuterol 2.5 mg 09/20/24 12:00 09/28/24 20:22 Albuterol Sulfate Neb 2.5 Mg/3 Ml Inh INHALATION 2.5 mg QIDRT ERICKSON Administration Alprazolam 0.5 mg 09/19/24 21:00 09/28/24 20:29 Alprazolam (*Crx) 0.5 Mg Tablet PO 0.5 mg Q12HR ERICKSON Administration Aspirin 81 mg 09/20/24 09:00 09/28/24 08:09 Aspirin 81 Mg Enteric Tablet PO 81 mg QAM ERICKSON Administration Atorvastatin Calcium 20 mg 09/19/24 21:00 09/28/24 20:29 Atorvastatin 20 Mg Tablet PO 20 mg QHS ERICKSON Administration Carvedilol 6.25 mg 09/19/24 21:00 09/28/24 20:29 Carvedilol 6.25 Mg Tablet PO 6.25 mg Q12HR ERICKSON Administration Cyanocobalamin 1,000 mcg 09/21/24 09:00 09/28/24 08:09 Cyanocobalamin 1,000 Mcg Tablet PO 1,000 mcg QAM ERICKSON Administration Dextrose 12.5 gm 09/19/24 22:21 Dextrose 50% 25 Gm/50 Ml Syringe IV PUSH PRN PRN Hypoglycemia Protocol Dicyclomine HCl 20 mg 09/26/24 11:30 09/29/24 06:19 Dicyclomine Hcl 10 Mg Capsule PO 20 mg ACHS ERICKSON Administration Ferrous Sulfate 325 mg 09/21/24 09:00 09/28/24 08:12 Ferrous Sulfate [address] PO 325 mg DAILY ERICKSON Administration Furosemide 80 mg 09/29/24 09:00 Furosemide 80 Mg Tablet BY MOUTH DAILY ERICKSON Glucagon 1 mg 09/19/24 22:21 Glucagon For Inj 1 Mg Vial IM PRN PRN Hypoglycemia Protocol Glucose 15 gm 09/19/24 22:21 Glucose Oral Gel 15 Gm Of Glucse In 37.5 Gm Tube PO PRN PRN Hypoglycemia Protocol Hydralazine HCl 10 mg 09/19/24 17:00 09/27/24 08:02 Hydralazine 10 Mg Tablet PO 10 mg BID ERICKSON Administration Dextrose 1,000 mls @ 100 mls/hr 09/19/24 22:21 Dextrose 5% 1,000 Ml IVPB PRN PRN Hypoglycemia Protocol Insulin Aspart 3 - 6 units 09/20/24 08:00 09/28/24 17:06 Insulin Aspart (*Bkc) 100 Units/Ml SUB-Q Not Given TIDWM [facility] Protocol Insulin Aspart 1 - 3 units 09/20/24 21:00 09/28/24 20:43 Insulin Aspart (*Bkc) 100 Units/Ml SUB-Q Not Given HS [facility] Protocol Levothyroxine Sodium 112 mcg 09/20/24 06:30 09/29/24 06:19 Levothyroxine Sodium 112 Mcg Tablet PO 112 mcg DAILY@0630 [facility] Administration Lidocaine 1 patch 09/26/24 10:00 09/28/24 09:29 Lidocaine 5% Patch TRANSDERM Not Given DAILY [facility] Losartan Potassium 50 mg 09/27/24 09:00 09/28/24 08:09 Losartan Potassium 50 Mg Tablet PO 50 mg DAILY [facility] Administration Miscellaneous Information 0 each 09/19/24 00:01 09/27/24 07:46 Albuterol Nebs And Hfa Both Ordered - Please Specify When To Use Each Or Discontinue One XX 10/19/24 00:00 Not Given CLARIFY [facility] Miscellaneous Information 1 each 09/29/24 00:01 Order Clarification XX 10/29/24 00:00 [facility] Nitroglycerin 0.4 mg 09/19/24 23:36 09/20/24 07:43 Nitroglycerin Sl 0.4 Mg Tablet SUBLINGUAL 0.4 mg Q5MIN PRN Administration Chest Pain Pantoprazole Sodium 40 mg 09/20/24 09:00 09/28/24 08:09 Pantoprazole 40 Mg Tablet PO 40 mg DAILY [facility] Administration Fluticasone/Salmeterol 2 puff 09/20/24 20:00 09/28/24 20:23 Fluticasone/Salmeterol 45-21 Mcg Inhaler 1 Puff INHALATION 2 puff Q12HRT [facility] Administration Spironolactone 25 mg 09/20/24 09:00 09/20/24 10:35 Spironolactone 25 Mg Tablet PO Not Given DAILY [facility] Warfarin Sodium 7.5 mg 09/25/24 17:00 09/28/24 16:06 Warfarin (*Pbkc) 7.5 Mg Tablet PO 7.5 mg DAILY@1700 [facility] Administration Radiology Results: ITS Impressions Chest X-Ray 09/19/24 10:09 Impression: Probable mild bibasilar pulmonary edema and central congestive change. Chest CTA 09/20/24 08:07 IMPRESSION: 1. No pulmonary collision. 2. Patchy airspace opacities in the right lower lobe which suspicious for aspiration and/or pneumonia. 3. Mild emphysema. 4. Very small right pleural effusion. 5. Cardiomegaly. 6. Enlargement of the central pulmonary arteries consistent with pulmonary arterial hypertension. 7. Small sliding-type hiatal hernia with change of Michelle-en-Y gastric bypass procedure. Venous Doppler Study 09/20/24 13:07 IMPRESSION: 1. [id number] deep venous thrombosis in the right peroneal veins. Findings were discussed with Nicole Barragan, the nurse caring for the patient, at 1:12 PM. 2. No deep venous thrombosis in the left lower limb. Modified Barium Swallow 09/20/24 13:27 IMPRESSION: Patient tolerated regular consistency oral feedings in the upright position. Please correlate with speech pathologist findings and specific feeding recommendations. Abdomen/Pelvis CTA 09/24/24 15:13 IMPRESSION: 1. Nonspecific diarrhea with no obstruction or abnormal bowel wall thickening. 2. Small amount of scattered atherosclerotic plaque along the normal caliber abdominal aorta. No evaluation significant stenosis and several of its branches with no hemodynamically significant stenosis seen at the celiac axis, superior or inferior mesenteric arteries. 3. Mild cardiomegaly. 4. Small sliding-type hiatal hernia. 5. Cirrhosis. Abdomen Ultrasound 09/27/24 16:35 IMPRESSION: Sonographic findings suggestive of cirrhosis. Labs Labs: Laboratory Results - last 24 hr 09/28/24 09/28/24 09/28/24 07:59 08:18 11:59 WBC RBC Hgb Hct MCV MCH MCHC RDW Plt Count MPV Immature Gran % (Auto) Neut % (Auto) Lymph % (Auto) [place] % (Auto) Eos % (Auto) Baso % (Auto) Lymph # (Auto) [place] # (Auto) Eos # (Auto) Baso # (Auto) Abs Immat Gran (auto) Absolute Neuts (auto) Absolute Nucleated RBC Nucleated RBC % Platelet Estimate Macrocytosis Schistocytes PT 27.6 H D INR 2.5 Sodium Potassium Chloride Carbon Dioxide Anion Gap BUN Creatinine Estim Creat Clear Calc Estimated GFR Glucose POC Capillary Glucose 95 88 Calcium Total Bilirubin AST ALT Alkaline Phosphatase Total Protein Albumin 09/28/24 09/28/24 09/29/24 16:48 20:20 06:07 WBC 5.5 RBC 3.11 L Hgb 10.2 L Hct 33.0 L MCV 106.1 H MCH 32.8 MCHC 30.9 L RDW 14.2 Plt Count 300 MPV 9.5 Immature Gran % (Auto) 0.4 Neut % (Auto) 70.1 Lymph % (Auto) 19.3 [place] % (Auto) 7.5 Eos % (Auto) 1.8 Baso % (Auto) 0.9 Lymph # (Auto) 1.06 [place] # (Auto) 0.4 Eos # (Auto) 0.1 Baso # (Auto) 0.1 Abs Immat Gran (auto) 0.02 Absolute Neuts (auto) 3.9 Absolute Nucleated RBC 0.000 Nucleated RBC % 0.0 Platelet Estimate Adequate Macrocytosis 2+ Schistocytes None seen PT 29.8 H INR 2.8 Sodium 135 L Potassium 4.3 Chloride 102 Carbon Dioxide 29 Anion Gap 4 BUN 26 H Creatinine 0.80 Estim Creat Clear Calc 62 Estimated GFR > 60 Glucose 89 POC Capillary Glucose 118 H 100 Calcium 8.5 Total Bilirubin 0.5 AST 50 H ALT 33 Alkaline Phosphatase 112 Total Protein 6.0 L Albumin 3.6 Quality VTE Prophylaxis VTE prophylaxis: pharmacologic ordered
[2024-09-29 08:07] LABS: Glucose Point of Care 89 mg/dl (65-105)
[2024-09-29] MEDS: FERROUS SULFATE 325 MG TABLET DR PO (08:17)
[2024-09-29] MEDS: ALPRAZolam (*CRX) 0.5 MG TABLET PO ×2 (08:17→20:22)
[2024-09-29] MEDS: FUROSEMIDE 80 MG TABLET BY MOUTH (08:17)
[2024-09-29] MEDS: CYANOCOBALAMIN 1,000 MCG TABLET 1000 MCG PO (08:17)
[2024-09-29] MEDS: ASPIRIN 81 MG ENTERIC TABLET PO (08:17)
[2024-09-29] MEDS: PANTOPRAZOLE 40 MG TABLET PO (08:17)
[2024-09-29] MEDS: carvediloL 6.25 MG TABLET PO ×2 (08:26→20:22)
--- NOTE | 2024-09-29 08:39 | PCPTNOTE ---
Patient refused treatment this session due to pain. RN gave pain medication.
[2024-09-29] MEDS: ALBUTEROL SULFATE NEB 2.5 MG/3 ML INH INHALATION ×4 (08:46→20:01)
[2024-09-29] MEDS: FLUTICASONE/SALMETEROL 45-21 MCG INHALER 1 PUFF 2 PUFF INHALATION ×2 (08:48→20:02)
--- NOTE | 2024-09-29 09:24 | WPDGIPROGNO ---
Progress Note: A&P Assessment and Plan (1) Abdominal pain: Code(s): R10.9 - Unspecified abdominal pain Status: Acute Assessment and Plan: The patient is deemed a good candidate for the procedure. Consent signed. Will proceed. Subjective Date/time seen: 09/29/24 09:24 Interval history: Patient continues to have postprandial epigastric / mid abdominal pain. He is down here for EGD. Review of Systems Review of Systems: All systems reviewed & are unremarkable except as noted in HPI and below Exam Narrative: General: female in no acute respiratory distress who is nontoxic appearing, lying semi recumbent in bed. HEENT: Normocephalic. Atraumatic. Extraocular movement intact. Sclera clear and anicteric. No facial asymmetry. Chest: Lungs are clear but diminished to auscultation bilaterally. No wheezes or crackles. CV: Heart was regular rate. S1-S2. No murmurs, gallops, or rubs. Abd: Abdomen was soft. Mild epigastric tenderness. Nondistended. Positive bowel sounds. No organomegaly or masses. Ext: No clubbing, cyanosis, or edema. 2+ DP pulses bilaterally. Neuro: Patient is alert and oriented x3. Cranial nerves 2-12 are intact. Speech is clear. Objective Data Vital Signs Vital Signs: Vital Signs - 24 hr 09/28/24 12:00 09/28/24 12:00 09/28/24 12:10 Temperature Pulse Rate 70 71 Respiratory Rate 20 20 Blood Pressure Pulse Oximetry 100 Oxygen Delivery Nasal Cannula Oxygen Flow Rate 3 Fraction of Inspired Oxygen 32 09/28/24 12:24 09/28/24 16:00 09/28/24 16:00 Temperature 97.6 F Pulse Rate 64 78 Respiratory Rate 18 20 Blood Pressure 101/57 L Pulse Oximetry 100 100 Oxygen Delivery Nasal Cannula Oxygen Flow Rate 3 Fraction of Inspired Oxygen 32 09/28/24 16:09 09/28/24 16:51 09/28/24 20:23 Temperature 97.8 F Pulse Rate 75 76 75 Respiratory Rate 20 18 20 Blood Pressure 122/50 L Pulse Oximetry 98 Oxygen Delivery Oxygen Flow Rate Fraction of Inspired Oxygen 09/28/24 20:26 09/28/24 20:34 09/28/24 20:36 Temperature Pulse Rate 75 76 Respiratory Rate 16 20 Blood Pressure Pulse Oximetry 98 98 Oxygen Delivery Nasal Cannula Autopap Oxygen Flow Rate 3 Fraction of Inspired Oxygen 32 09/28/24 20:29 09/28/24 20:18 09/28/24 20:35 Temperature 98.2 F Pulse Rate 86 71 76 Respiratory Rate 14 20 Blood Pressure 105/44 L Pulse Oximetry 97 98 Oxygen Delivery Autopap Oxygen Flow Rate Fraction of Inspired Oxygen 32 09/28/24 23:47 09/29/24 02:06 09/29/24 03:31 Temperature 97.6 F 97.5 F L Pulse Rate 71 68 Respiratory Rate 16 16 Blood Pressure 108/50 L 113/43 L Pulse Oximetry 100 100 Oxygen Delivery Autopap Oxygen Flow Rate Fraction of Inspired Oxygen 09/29/24 08:15 09/29/24 08:26 09/29/24 08:46 Temperature 96.9 F L Pulse Rate 78 78 66 Respiratory Rate 18 18 Blood Pressure 110/49 L Pulse Oximetry 98 Oxygen Delivery Oxygen Flow Rate Fraction of Inspired Oxygen 09/29/24 08:46 09/29/24 08:57 09/29/24 08:17 Temperature Pulse Rate 71 Respiratory Rate 18 Blood Pressure Pulse Oximetry 97 96 Oxygen Delivery Nasal Cannula Nasal Cannula Oxygen Flow Rate 2 2 Fraction of Inspired Oxygen 28 Intake/Output Intake/Output: Intake & Output 09/26/24 09/27/24 09/28/24 09/29/24 23:59 23:59 23:59 23:59 Intake Total 0129 038 2650 768 Output Total 670 Balance 8142 763 5621 98 Meds/Results Medications: Active Medications Generic Name Dose Route Start Last Admin Trade Name Freq PRN Reason Stop Dose Admin Acetaminophen 650 mg 09/19/24 22:21 09/29/24 06:19 Acetaminophen 325 Mg Tablet PO 650 mg Q6H PRN Administration Mild Pain (1-3) or Fever Hydrocodone Bitart/Acetaminophen 1 tab 09/28/24 07:45 09/29/24 08:19 Hydrocodone/Acetaminophen (*Crx) 10-325 Mg Tablet PO 1 tab Q6H PRN Administration Pain Rated 7-10 Albuterol 1 - 2 puff 09/19/24 16:27 Albuterol Sulfate (*Sp) Aerosol 1 Puff INHALATION Q4-6H PRN Shortness Of Breath Albuterol 2.5 mg 09/20/24 12:00 09/29/24 08:46 Albuterol Sulfate Neb 2.5 Mg/3 Ml Inh INHALATION 2.5 mg QIDRT ERICKSON Administration Alprazolam 0.5 mg 09/19/24 21:00 09/29/24 08:17 Alprazolam (*Crx) 0.5 Mg Tablet PO 0.5 mg Q12HR ERICKSON Administration Aspirin 81 mg 09/20/24 09:00 09/29/24 08:17 Aspirin 81 Mg Enteric Tablet PO 81 mg QAM ERICKSON Administration Atorvastatin Calcium 20 mg 09/19/24 21:00 09/28/24 20:29 Atorvastatin 20 Mg Tablet PO 20 mg QHS ERICKSON Administration Carvedilol 6.25 mg 09/19/24 21:00 09/29/24 08:26 Carvedilol 6.25 Mg Tablet PO 6.25 mg Q12HR ERICKSON Administration Cyanocobalamin 1,000 mcg 09/21/24 09:00 09/29/24 08:17 Cyanocobalamin 1,000 Mcg Tablet PO 1,000 mcg QAM ERICKSON Administration Dextrose 12.5 gm 09/19/24 22:21 Dextrose 50% 25 Gm/50 Ml Syringe IV PUSH PRN PRN Hypoglycemia Protocol Dicyclomine HCl 20 mg 09/26/24 11:30 09/29/24 06:19 Dicyclomine Hcl 10 Mg Capsule PO 20 mg ACHS ERICKSON Administration Ferrous Sulfate 325 mg 09/21/24 09:00 09/29/24 08:17 Ferrous Sulfate [address] PO 325 mg DAILY ERICKSON Administration Furosemide 80 mg 09/29/24 09:00 09/29/24 08:17 Furosemide 80 Mg Tablet BY MOUTH 80 mg DAILY ERICKSON Administration Glucagon 1 mg 09/19/24 22:21 Glucagon For Inj 1 Mg Vial IM PRN PRN Hypoglycemia Protocol Glucose 15 gm 09/19/24 22:21 Glucose Oral Gel 15 Gm Of Glucse In 37.5 Gm Tube PO PRN PRN Hypoglycemia Protocol Hydralazine HCl 10 mg 09/19/24 17:00 09/27/24 08:02 Hydralazine 10 Mg Tablet PO 10 mg BID ERICKSON Administration Dextrose 1,000 mls @ 100 mls/hr 09/19/24 22:21 Dextrose 5% 1,000 Ml IVPB PRN PRN Hypoglycemia Protocol Lactated Ringer's 1,000 mls @ 150 mls/hr 09/29/24 09:25 Lr - Lactated Ringers Iv IV CONT .Q6H40M [facility] Insulin Aspart 3 - 6 units 09/20/24 08:00 09/29/24 09:01 Insulin Aspart (*Bkc) 100 Units/Ml SUB-Q Not Given TIDWM [facility] Protocol Insulin Aspart 1 - 3 units 09/20/24 21:00 09/28/24 20:43 Insulin Aspart (*Bkc) 100 Units/Ml SUB-Q Not Given HS [facility] Protocol Levothyroxine Sodium 112 mcg 09/20/24 06:30 09/29/24 06:19 Levothyroxine Sodium 112 Mcg Tablet PO 112 mcg DAILY@0630 [facility] Administration Lidocaine 1 patch 09/26/24 10:00 09/29/24 08:20 Lidocaine 5% Patch TRANSDERM Not Given DAILY [facility] Losartan Potassium 50 mg 09/27/24 09:00 09/29/24 09:02 Losartan Potassium 50 Mg Tablet PO Not Given DAILY [facility] Miscellaneous Information 0 each 09/19/24 00:01 09/27/24 07:46 Albuterol Nebs And Hfa Both Ordered - Please Specify When To Use Each Or Discontinue One XX 10/19/24 00:00 Not Given CLARIFY [facility] Miscellaneous Information 1 each 09/29/24 00:01 Order Clarification XX 10/29/24 00:00 CLARIFY [facility] Nitroglycerin 0.4 mg 09/19/24 23:36 09/20/24 07:43 Nitroglycerin Sl 0.4 Mg Tablet SUBLINGUAL 0.4 mg Q5MIN PRN Administration Chest Pain Pantoprazole Sodium 40 mg 09/20/24 09:00 09/29/24 08:17 Pantoprazole 40 Mg Tablet PO 40 mg DAILY [facility] Administration Fluticasone/Salmeterol 2 puff 09/20/24 20:00 09/29/24 08:48 Fluticasone/Salmeterol 45-21 Mcg Inhaler 1 Puff INHALATION 2 puff Q12HRT [facility] Administration Spironolactone 25 mg 09/20/24 09:00 09/20/24 10:35 Spironolactone 25 Mg Tablet PO Not Given DAILY [facility] Warfarin Sodium 5 mg 09/29/24 17:00 Warfarin (*Pbkc) 5 Mg Tablet PO DAILY@1700 [facility] Radiology Results: ITS Impressions Chest X-Ray 09/19/24 10:09 Impression: Probable mild bibasilar pulmonary edema and central congestive change. Chest CTA 09/20/24 08:07 IMPRESSION: 1. No pulmonary collision. 2. Patchy airspace opacities in the right lower lobe which suspicious for aspiration and/or pneumonia. 3. Mild emphysema. 4. Very small right pleural effusion. 5. Cardiomegaly. 6. Enlargement of the central pulmonary arteries consistent with pulmonary arterial hypertension. 7. Small sliding-type hiatal hernia with change of Michelle-en-Y gastric bypass procedure. Venous Doppler Study 09/20/24 13:07 IMPRESSION: 1. [id number] deep venous thrombosis in the right peroneal veins. Findings were discussed with Nicole Barragan, the nurse caring for the patient, at 1:12 PM. 2. No deep venous thrombosis in the left lower limb. Modified Barium Swallow 09/20/24 13:27 IMPRESSION: Patient tolerated regular consistency oral feedings in the upright position. Please correlate with speech pathologist findings and specific feeding recommendations. Abdomen/Pelvis CTA 09/24/24 15:13 IMPRESSION: 1. Nonspecific diarrhea with no obstruction or abnormal bowel wall thickening. 2. Small amount of scattered atherosclerotic plaque along the normal caliber abdominal aorta. No evaluation significant stenosis and several of its branches with no hemodynamically significant stenosis seen at the celiac axis, superior or inferior mesenteric arteries. 3. Mild cardiomegaly. 4. Small sliding-type hiatal hernia. 5. Cirrhosis. Abdomen Ultrasound 09/27/24 16:35 IMPRESSION: Sonographic findings suggestive of cirrhosis. Labs Labs: Laboratory Results - last 24 hr 09/28/24 09/28/24 09/28/24 11:59 16:48 20:20 WBC RBC Hgb Hct MCV MCH MCHC RDW Plt Count MPV Immature Gran % (Auto) Neut % (Auto) Lymph % (Auto) [place] % (Auto) Eos % (Auto) Baso % (Auto) Lymph # (Auto) [place] # (Auto) Eos # (Auto) Baso # (Auto) Abs Immat Gran (auto) Absolute Neuts (auto) Absolute Nucleated RBC Nucleated RBC % Platelet Estimate Macrocytosis Schistocytes PT INR Sodium Potassium Chloride Carbon Dioxide Anion Gap BUN Creatinine Estim Creat Clear Calc Estimated GFR Glucose POC Capillary Glucose 88 118 H 100 Calcium Total Bilirubin AST ALT Alkaline Phosphatase Total Protein Albumin 09/29/24 09/29/24 06:07 08:04 WBC 5.5 RBC 3.11 L Hgb 10.2 L Hct 33.0 L MCV 106.1 H MCH 32.8 MCHC 30.9 L RDW 14.2 Plt Count 300 MPV 9.5 Immature Gran % (Auto) 0.4 Neut % (Auto) 70.1 Lymph % (Auto) 19.3 [place] % (Auto) 7.5 Eos % (Auto) 1.8 Baso % (Auto) 0.9 Lymph # (Auto) 1.06 [place] # (Auto) 0.4 Eos # (Auto) 0.1 Baso # (Auto) 0.1 Abs Immat Gran (auto) 0.02 Absolute Neuts (auto) 3.9 Absolute Nucleated RBC 0.000 Nucleated RBC % 0.0 Platelet Estimate Adequate Macrocytosis 2+ Schistocytes None seen PT 29.8 H INR 2.8 Sodium 135 L Potassium 4.3 Chloride 102 Carbon Dioxide 29 Anion Gap 4 BUN 26 H Creatinine 0.80 Estim Creat Clear Calc 62 Estimated GFR > 60 Glucose 89 POC Capillary Glucose 89 Calcium 8.5 Total Bilirubin 0.5 AST 50 H ALT 33 Alkaline Phosphatase 112 Total Protein 6.0 L Albumin 3.6
[2024-09-29] MEDS: LACTATED RINGERS 1,000 ML 150 ML IV CONT (09:30)
--- NOTE | 2024-09-29 09:33 | PCNWS ---
Weekly nutritional screen. Patient NPO for EGD today. Intakes were 50-100% on previous heart healthy diet. No weight loss reported. No nutritional needs at this time.
[2024-09-29 09:36] LABS: Glucose Point of Care 96 mg/dl (65-105)
--- NOTE | 2024-09-29 09:47 | P.PNAN_ITS ---
Anes - Initial Pre Proc Eval Procedure: Operation Date: 09/29/24 15:30 Proposed Procedures p Esophagogastroduodenoscopy - Don Gutierrez MD Date/Time: 09/29/24 09:47 Surgeon: Rafa Stone MD Pre Op Diagnosis: Dyspnea Patient Data Age: 79 Gender: F Height: 1.65 m Weight: 106 kg Last Vital Signs Temp 36.1 C L 09/29/24 09:38 Pulse 64 09/29/24 09:38 Resp 20 09/29/24 09:38 BP 121/56 L 09/29/24 09:38 Pulse Ox 99 09/29/24 09:38 O2 Del Method Nasal Cannula 09/29/24 09:38 O2 Flow Rate 3 09/29/24 09:38 FiO2 28 09/29/24 08:46 Allergies Allergy/AdvReac Type Severity Reaction Status Date / Time quetiapine [From Seroquel] Allergy Intermediate Confusion Verified 09/29/24 09:36 Home Medications Medication Instructions Recorded Confirmed Type hydrocodone 10 mg-acetaminophen 1 tablet PO Q6H PRN Pain 05/26/20 09/19/24 History 325 mg tablet albuterol sulfate 2.5 mg/3 mL 2.5 mg (3 mL) inhalation QID PRN 04/03/23 09/19/24 Rx (0.083 %) solution for nebulization shortness of breath or wheezing #360 mL atorvastatin 20 mg tablet 20 mg PO QHS #90 tabs 07/05/23 09/19/24 Rx albuterol sulfate 90 mcg/actuation 1 - 2 puff inhalation Q4-6H PRN 05/26/24 09/19/24 Rx aerosol inhaler Shortness Of Breath #8.5 grams levothyroxine 112 mcg tablet 112 mcg PO DAILY #30 tabs 08/11/24 09/19/24 Rx alprazolam 0.5 mg tablet 0.5 mg PO BID #60 tabs 09/12/24 09/19/24 Rx budesonide-formoterol HFA 80 See Rx Instructions .Route 09/15/24 09/19/24 Rx mcg-4.5 mcg/actuation aerosol .COMPLEX #10.2 grams inhaler (Symbicort) carvedilol 6.25 mg tablet 6.25 mg PO BID 09/19/24 09/19/24 History furosemide 40 mg tablet 40 mg PO DAILY 09/19/24 09/19/24 History hydralazine 10 mg tablet 10 mg PO BID 09/19/24 09/19/24 History losartan 100 mg tablet 100 mg PO DAILY 09/19/24 09/19/24 History pantoprazole 40 mg tablet,delayed 40 mg PO DAILY 09/19/24 09/19/24 History release potassium chloride 20 mEq 20 meq PO DAILY 09/19/24 09/19/24 History tablet,extended release spironolactone 25 mg tablet 25 mg PO DAILY 09/19/24 09/19/24 History Laboratory Tests 09/28/24 09/28/24 09/28/24 11:59 16:48 20:20 WBC RBC Hgb Hct MCV MCH MCHC RDW Plt Count MPV Immature Gran % (Auto) Neut % (Auto) Lymph % (Auto) [place] % (Auto) Eos % (Auto) Baso % (Auto) Lymph # (Auto) [place] # (Auto) Eos # (Auto) Baso # (Auto) Abs Immat Gran (auto) Absolute Neuts (auto) Absolute Nucleated RBC Nucleated RBC % Platelet Estimate Macrocytosis Schistocytes PT INR Sodium Potassium Chloride Carbon Dioxide Anion Gap BUN Creatinine Estim Creat Clear Calc Estimated GFR Glucose POC Capillary Glucose 88 mg/dl 118 H mg/dl 100 mg/dl (65-105) (65-105) (65-105) Calcium Total Bilirubin AST ALT Alkaline Phosphatase Total Protein Albumin 09/29/24 09/29/24 09/29/24 06:07 08:04 09:33 WBC 5.5 K/mm3 (4.5-10.0) RBC 3.11 L M/mm3 (4.2-5.4) Hgb 10.2 L g/dL (12.0-15.0) Hct 33.0 L % (37.0-47.0) MCV 106.1 H fl (80-100) MCH 32.8 pg (26-34) MCHC 30.9 L g/dl (32-36) RDW 14.2 % (11.5-14.5) Plt Count 300 k/mm3 (150-375) MPV 9.5 fl (7.4-10.4) Immature Gran % (Auto) 0.4 % (0-0.5) Neut % (Auto) 70.1 % (45.5-73.1) Lymph % (Auto) 19.3 % (18.3-44.2) [place] % (Auto) 7.5 % (2.6-8.5) Eos % (Auto) 1.8 % (0-4.4) Baso % (Auto) 0.9 % (0.2-1.2) Lymph # (Auto) 1.06 K/mm3 (0.9-3.2) [place] # (Auto) 0.4 K/mm3 (0.1-0.6) Eos # (Auto) 0.1 K/mm3 (0-0.3) Baso # (Auto) 0.1 K/mm3 (0.0-0.1) Abs Immat Gran (auto) 0.02 K/mm3 (0.00-0.031) Absolute Neuts (auto) 3.9 K/mm3 (1.3-6.7) Absolute Nucleated RBC 0.000 K/mm3 (0.0-0.012) Nucleated RBC % 0.0 % (0.0-0.2) Platelet Estimate Adequate (Adequate) Macrocytosis 2+ (NORMAL) Schistocytes None seen PT 29.8 H Seconds (11.1-14.7) INR 2.8 Sodium 135 L mmol/L (137-145) Potassium 4.3 mmol/L (3.4-5.0) Chloride 102 mmol/L (98-107) Carbon Dioxide 29 mmol/L (22-30) Anion Gap 4 mmol/L (4-12) BUN 26 H mg/dL (7-17) Creatinine 0.80 mg/dL (0.7-1.0) Estim Creat Clear Calc 62 ml/min Estimated GFR > 60 (59 - ) Glucose 89 mg/dL (65-110) POC Capillary Glucose 89 mg/dl 96 mg/dl (65-105) (65-105) Calcium 8.5 mg/dL (8.4-10.2) Total Bilirubin 0.5 mg/dL (0.2-1.3) AST 50 H U/L (14-36) ALT 33 U/L (6-35) Alkaline Phosphatase 112 U/L (38-126) Total Protein 6.0 L g/dL (6.3-8.2) Albumin 3.6 g/dL (3.5-5.1) Patient hx anesthesia problems: none Family hx anesthesia problems: none Results Review: All pre-operative results and documents have been reviewed as part of the pre- operative evaluation. [facility] Past Medical History Medical History Anxiety Arthritis Asthma Benign colon polyp Benign essential tremor Chronic anemia Chronic anticoagulation Chronic atrial fibrillation Chronic diastolic congestive heart failure Chronic obstructive pulmonary disease Chronic pain syndrome Due to chronic back and neck pain. She is on long-term opiate therapy. Chronic respiratory failure with hypoxia, on home oxygen therapy Depression Diabetic polyneuropathy associated with type 2 diabetes mellitus Emphysema lung Fibromyalgia Gastroesophageal reflux disease Heart failure with preserved ejection fraction History of tobacco use Hypertension Inguinal hernia Obstructive sleep apnea Osteoporosis Peripheral neuropathy Seasonal allergies Severe pulmonary arterial systolic hypertension RVSP of 63 millimeters of mercury on echocardiogram in June 2019. Takotsubo cardiomyopathy In May 2019 with ejection fraction as low as 25 to 30%. EF improved to 65% on echo in June 2019. Type 2 diabetes mellitus with autonomic neuropathy Uterine cancer Surgical History Surgical History History of 2 sections History of cardiac cath History of cholecystectomy History of dilatation and curettage History of exploratory laparotomy With adhesiolysis. History of gastric bypass History of incisional hernia repair History of right knee joint replacement History of surgical removal of ganglion cyst History of total abdominal hysterectomy and bilateral salpingo-oophorectomy For uterine cancer. History of tubal ligation Family History Family History Mother Family history of heart disease in male family member before age 55 Diabetes mellitus Patient's mother is Family history of chronic obstructive pulmonary disease Father Family history of arthritis Patient's father is Family history of emphysema Family history of lung disease Sibling Family history of malignant neoplasm of ovary Family history of malignant neoplasm Patient's sister is Patient's sister is in good health Family history of malignant neoplasm of uterus Grandparent Diabetes mellitus Other Family history of cardiovascular disease Family history of osteoarthritis Hypertension Social History Social History Social History: . Lives alone but has family close by. Smoked up to 2 packs of cigarettes per day for 40 years and quit in 2000. No alcohol or drug abuse. She designates her daughter, Carmita Day, as her surrogate decision maker. Code status: Full code. Smoking packs per day: 3 Smoking cigarettes per day: 60.0 Years smoked: 30 Smoking pack-years: 90.00 Smoking status: Former smoker Tobacco type: cigarettes Second hand tobacco smoke exposure: No Alcohol intake: never Substance use: current Substance use type: opiates Do You Feel Safe in your Home?: Yes Lack of Transportation: No Lack of Food: Never True Current Housing: I Have Housing Concerned About Future Housing: No Difficulty Paying Gas/Electric Bills: No Difficulty Paying for Meds: No Currently Unemployed: YES Education: Don't Know Difficulty w/ Childcare or Family Care: No Living arrangements: alone Occupation/Education: retired Spiritual care concerns: No Anes - Eval Final PreProcedure Day of Procedure 09/29/24 09:47 Patient weight: obese Heart: irregular rhythm Lungs: decreased breath sounds Airway: Mallampati scale class 1 Neurological: alert and oriented Last oral intake: >/= 8 hours ASA classification: IV Emergent: no Anesthetic plan: proceed Anesthesia type and monitoring: general GIVS and standard monitoring Results Review: All pre-operative results and documents have been reviewed as part of the pre- operative evaluation. Informed Consent: The patient's anesthetic plan and its attendant risks and benefits were discussed with the patient/family/POA. Questions were solicited and answers provided to the satisfaction of the patient/family/POA.
[2024-09-29] MEDS: SIMETHICONE ORAL SUSPENSION 20 MG/0.3 ML 30 ML BOTTLE 0.6 ML PO (10:02)
[2024-09-29 12:06] LABS: Glucose Point of Care 92 mg/dl (65-105)
--- NOTE | 2024-09-29 13:52 | PCOTNOTE ---
The patient treatment was not able to be completed Patient reports she doesn't feel well after eating lunch. Will plan to continue treatment per plan of care.
[2024-09-29 16:58] LABS: Glucose Point of Care 101 mg/dl (65-105)
[2024-09-29] MEDS: WARFARIN (*PBKC) 5 MG TABLET PO (17:07)
[2024-09-29] MEDS: FLUCONAZOLE 150 MG TABLET PO (17:09)
[2024-09-29] MEDS: ATORVASTATIN 20 MG TABLET PO (20:22)
[2024-09-29 21:32] LABS: Glucose Point of Care 104 mg/dl (65-105)
[2024-09-30] VITALS (22 sets, daily range): BP systolic 93–118; BP diastolic 44–68; PULSE 57–76; RESP 16–20; TEMP 36.4–36.5; O2SAT 97–100
[2024-09-30] MEDS: HYDROcodone/acetaminophen (*CRX) 10-325 MG TABLET 1 TAB PO ×3 (05:07→17:31)
[2024-09-30] MEDS: DICYCLOMINE HCL 10 MG CAPSULE 20 MG PO ×4 (05:32→20:44)
[2024-09-30] MEDS: LEVOTHYROXINE SODIUM 112 MCG TABLET PO (05:32)
[2024-09-30 05:41] LABS: Basophils Absolute Auto 0.1 K/mm3 (0.0-0.1); Basophils Percent Auto 1.2 % (0.2-1.2); Eosinophils Absolute Auto 0.1 K/mm3 (0-0.3); Eosinophils Percent Auto 2.5 % (0-4.4); Hemoglobin 10.1 g/dL (12.0-15.0); Immature Granulocyte Absolute 0.02 K/mm3 (0.00-0.031); Immature Granulocyte Percent A 0.4 % (0-0.5); Lymphocytes Absolute Auto 1.03 K/mm3 (0.9-3.2); Lymphocytes Percent Auto 20.1 % (18.3-44.2); Mean Corpuscular HGB Conc 30.6 g/dl (32-36); Mean Corpuscular Hemoglobin 32.3 pg (26-34); Mean Corpuscular Volume 105.4 fl (80-100); Mean Platelet Volume 9.5 fl (7.4-10.4); Monocytes Absolute Auto 0.4 K/mm3 (0.1-0.6); Monocytes Percent Auto 8.2 % (2.6-8.5); Neutrophils Absolute Auto 3.5 K/mm3 (1.3-6.7); Neutrophils Percent Auto 67.6 % (45.5-73.1); Platelet Count Result 274 k/mm3 (150-375); Red Blood Count 3.13 M/mm3 (4.2-5.4); Red Cell Distribution Width 13.9 % (11.5-14.5); White Blood Count 5.1 K/mm3 (4.5-10.0)
[2024-09-30 05:51] LABS: Alanine Aminotransferase 38 U/L (6-35); Albumin Level 3.5 g/dL (3.5-5.1); Alkaline Phosphatase 114 U/L (38-126); Anion Gap 1 mmol/L (4-12); Aspartate Amino Transferase 50 U/L (14-36); Bilirubin,Total 0.4 mg/dL (0.2-1.3); Blood Urea Nitrogen 28 mg/dL (7-17); Calcium 8.5 mg/dL (8.4-10.2); Carbon Dioxide 32 mmol/L (22-30); Chloride 100 mmol/L (98-107); Estimated CRCL calculation 54 ml/min; Estimated Glomerular Filt Rate > 60; Glucose 83 mg/dL (65-110); Potassium 3.8 mmol/L (3.4-5.0); Sodium 133 mmol/L (137-145)
[2024-09-30 06:26] LABS: Macrocytosis 2+ (NORMAL); Platelet Estimate Adequate (Adequate)
[2024-09-30 06:27] LABS: Schistocytes None Seen
[2024-09-30 06:46] LABS: INR 2.8; Prothrombin Time 30.2 Seconds (11.1-14.7)
[2024-09-30] MEDS: FLUTICASONE/SALMETEROL 45-21 MCG INHALER 1 PUFF 2 PUFF INHALATION ×2 (07:38→19:54)
[2024-09-30] MEDS: ALBUTEROL SULFATE NEB 2.5 MG/3 ML INH INHALATION ×4 (07:38→19:54)
[2024-09-30 08:10] LABS: Glucose Point of Care 89 mg/dl (65-105)
[2024-09-30] MEDS: FUROSEMIDE 80 MG TABLET BY MOUTH (09:25)
[2024-09-30] MEDS: FERROUS SULFATE 325 MG TABLET DR PO (09:25)
[2024-09-30] MEDS: ASPIRIN 81 MG ENTERIC TABLET PO (09:25)
[2024-09-30] MEDS: SPIRONOLACTONE 25 MG TABLET PO (09:25)
[2024-09-30] MEDS: carvediloL 6.25 MG TABLET PO ×2 (09:25→20:44)
[2024-09-30] MEDS: PANTOPRAZOLE 40 MG TABLET PO (09:25)
[2024-09-30] MEDS: ALPRAZolam (*CRX) 0.5 MG TABLET PO ×2 (09:25→20:44)
[2024-09-30] MEDS: CYANOCOBALAMIN 1,000 MCG TABLET 1000 MCG PO (09:26)
[2024-09-30] MEDS: LIDOCAINE 5% PATCH 1 PATCH TRANSDERM (09:28)
[2024-09-30] MEDS: ACETAMINOPHEN 325 MG TABLET 650 MG PO (09:30)
[2024-09-30 11:47] LABS: Glucose Point of Care 79 mg/dl (65-105)
--- NOTE | 2024-09-30 15:21 | P.PNAN_ITS ---
Anes - Prog Note Post-Op Date/Time: 09/30/24 15:21 Cardiovascular status: normal Respiratory status: normal Airway patency: baseline Mental status: baseline Post-Op hydration status: normal Vital Signs: Last Vital Signs Temp 36.4 C 09/30/24 12:00 Pulse 72 09/30/24 12:00 Resp 19 09/30/24 12:00 BP 116/68 09/30/24 12:00 Pulse Ox 97 09/30/24 12:00 O2 Del Method Nasal Cannula 09/30/24 11:25 O2 Flow Rate 2 09/30/24 11:25 FiO2 28 09/29/24 20:20 Pain Score (VAS): 0 I/O: Intake & Output 09/29/24 09/30/24 09/30/24 23:59 07:59 15:59 Intake Total 1340 300 462 Balance 1340 300 462 Laboratory Tests 09/30/24 04:58 09/30/24 04:58 09/29/24 09/29/24 09/30/24 16:55 21:13 04:58 WBC 5.1 RBC 3.13 L Hgb 10.1 L Hct 33.0 L MCV 105.4 H MCH 32.3 MCHC 30.6 L RDW 13.9 Plt Count 274 MPV 9.5 Immature Gran % (Auto) 0.4 Neut % (Auto) 67.6 Lymph % (Auto) 20.1 [place] % (Auto) 8.2 Eos % (Auto) 2.5 Baso % (Auto) 1.2 Lymph # (Auto) 1.03 [place] # (Auto) 0.4 Eos # (Auto) 0.1 Baso # (Auto) 0.1 Abs Immat Gran (auto) 0.02 Absolute Neuts (auto) 3.5 Absolute Nucleated RBC 0.000 Nucleated RBC % 0.0 Platelet Estimate Adequate Macrocytosis 2+ Schistocytes None seen PT 30.2 H INR 2.8 Sodium 133 L Potassium 3.8 Chloride 100 Carbon Dioxide 32 H Anion Gap 1 L BUN 28 H Creatinine 0.90 Estim Creat Clear Calc 54 Estimated GFR > 60 Glucose 83 POC Capillary Glucose 101 104 Calcium 8.5 Total Bilirubin 0.4 AST 50 H ALT 38 H Alkaline Phosphatase 114 Total Protein 6.0 L Albumin 3.5 09/30/24 09/30/24 08:05 11:41 WBC RBC Hgb Hct MCV MCH MCHC RDW Plt Count MPV Immature Gran % (Auto) Neut % (Auto) Lymph % (Auto) [place] % (Auto) Eos % (Auto) Baso % (Auto) Lymph # (Auto) [place] # (Auto) Eos # (Auto) Baso # (Auto) Abs Immat Gran (auto) Absolute Neuts (auto) Absolute Nucleated RBC Nucleated RBC % Platelet Estimate Macrocytosis Schistocytes PT INR Sodium Potassium Chloride Carbon Dioxide Anion Gap BUN Creatinine Estim Creat Clear Calc Estimated GFR Glucose POC Capillary Glucose 89 79 Calcium Total Bilirubin AST ALT Alkaline Phosphatase Total Protein Albumin Microbiology 09/28/24 09:24 Stool Stool for WBCs - Final 09/28/24 09:24 Stool Escherichia coli Shiga Toxins - Final 09/28/24 09:24 Stool Campylobacter Antigen Assay - Final Post-procedural complaints: none Patient Feedback: Patient satisfied with anesthetic care.
--- NOTE | 2024-09-30 15:25 | PM.IMPN ---
Progress Note: A&P Assessment and Plan (1) Chronic respiratory failure with hypoxia: Code(s): J96.11 - Chronic respiratory failure with hypoxia Status: Acute Assessment and Plan: Patient is on 3-4 L at rest, with exertion and at night. She has a high SpO2 on 3LNC with Sa02 98%. Wean O2 as tolerated to keep SpO2>92%. Follow (2) Abdominal pain: Code(s): R10.9 - Unspecified abdominal pain Status: Acute Assessment and Plan: Severe abdominal pain directly after eating. Possible etiology includes duodenal vs peptic ulcer vs gas build up 2/2 aerophagia from COPD vs other. Patient is s/p cholecystectomy. Had a gastric bypass in the 2007. - Analgesics - Stool studies ordered to rule out infectious cause of abdominal pain - CTA abdomen/pelvis: 1. Nonspecific diarrhea with no obstruction or abnormal bowel wall thickening. 2. Small amount of scattered atherosclerotic plaque along the normal caliber abdominal aorta. No evaluation significant stenosis and several of its branches with no hemodynamically significant stenosis seen at the celiac axis, superior or inferior mesenteric arteries. 3. Mild cardiomegaly. 4. Small sliding-type hiatal hernia. 5. Cirrhosis. - Abdominal US ordered to further evaluate possible cirrhosis seen on CT: Sonographic findings suggestive of cirrhosis. - GI consulted s/p EGD on 09/29: unremarkable Started on Bentyl TIDWM Follow-up in the GI office afterwards for cirrhosis which appears to be compensated and most likely 2nd to fatty liver disease. 09/30: Patient endorsing severe abdominal pain with radiation to the back. EGD and KUB unremarkable. Endorsing decreased oral intake 2/2 pain. Trial Toradol. Remains on home norco. Monitor. (3) CHF exacerbation: Code(s): I50.9 - Heart failure, unspecified Status: Acute Assessment and Plan: Suspect acute on chronic diastolic CHF exacerbation and possibly pneumonia. Mildly elevated Trop related to CHF. - Symptoms: Shortness of breath. - Current medications: Lasix 80 mg PO daily - Supportive treatment Tyl and ibu prn Nebs prn - Fluid restriction 1500 ml/day - BNP: 7300 - D dimer positive - Troponin mildly elevated at 0.039 -> 0.035. EKG showing AFib, RAD and Rt BBB. - AB.35/40/94 on 4 L. - Chest x-ray shows mild bibasilar pulmonary edema. - CTA was negative for PE but does show patchy airspace opacities in the right lower lobe suspicious for aspiration and/or pneumonia. - Echo: EF 62%, Grade III diastolic dysfxn, RVE, mild pHTN (54mmHg) - Monitor vital signs, I&Os, BUN/creatinine, daily weights, neuro status and patient is a fall risk - Monitor serum electrolytes, Keep serum Potassium>4 and serum Magnesium>2 and CBC (4) Pneumonia: Qualifiers: Pneumonia type: aspiration pneumonia Aspiration pneumonia type: unspecified Laterality: bilateral Lung location: lower lobe of lung Qualified Code(s): J69.0 - Pneumonitis due to inhalation of food and vomit Code(s): J18.9 - Pneumonia, unspecified organism Status: Acute Assessment and Plan: - Chest x-ray shows mild bibasilar pulmonary edema. - CTA was negative for PE but does show patchy airspace opacities in the right lower lobe suspicious for aspiration and/or pneumonia. - Complicating Factors: CHF exacerbation and COPD on chronic O2 supplementation - Antibiotics: Augmentin and doxycycline, course to be completed on 09/26 - Viral PCR: negative for Flu/COVID/RSV - Sputum culture: Normal oropharyngeal maria luz - MRSA negative - supportive treatment - Monitor vital signs, I&Os, neuro status and patient is a fall risk - Follow WBC, serum electrolytes, temperature curves and cultures - Speech eval showing no concerns. She did recommend Easy to chew Level 7 which was ordered. Since aspiration less likely, will stop Flagyl. De-escalate abx and change to oral Resolved. (5) DVT (deep venous thrombosis): Code(s): I82.409 - Acute embolism and thrombosis of unspecified deep veins of unspecified lower extremity Status: Acute Assessment and Plan: Patient has ethan off her Eliquis prior to admission, unable to afford Eliquis or Xarelto - INR 2.8 on am labs - Doppler showing below the knee DVT right peroneal veins. - Start Lovenox 100 mg subq q12. Will need to stay on Lovenox for a day after patient reaches INR of 2-3 then in can be discontinued with patient receiving only Warfarin. Lovenox discontinued on 09/28. - Started Warfarin 5 mg PO qpm on 09/23, dose increased to 7.5 mg on 11/28. Decreased back to 5.0 mg on 09/29 as INR was progressively increasing. Goal 2-3. Patient will need set up for INR testing at discharge. 09/28 INR 2,5- will give Lovenox dose in am and pm and stop- pharmacy communication sent and RNCon updated (6) UTI (urinary tract infection): Qualifiers: Hematuria presence: without hematuria Urinary tract infection type: site unspecified Qualified Code(s): N39.0 - Urinary tract infection, site not specified Code(s): N39.0 - Urinary tract infection, site not specified Status: Acute Assessment and Plan: UA is concerning for UTI. UCx collected. Rocephin started. UCx EColi that is relatively sterling-sensitive. Changed to Augmentin to complete a course Resolved. 09/29: Endorsing vaginal itching concerning for yeast infection. Given 1x dose of fluconazole. (7) Macrocytic anemia: Code(s): D53.9 - Nutritional anemia, unspecified Status: Acute Assessment and Plan: Patient with chronic anemia in the past but more recently her hemoglobin was 13 in April. Hemoglobin 10.2 on admission with macrocytosis. - H/H 10.1/33 on am labs - Iron studies showed normal iron and TIBC with saturation of 12%. Ferritin normal at 67. - B12 level low at 189 with a normal folate. - Patient with B12 deficiency. Iron stores (Ferritin <100)are low as well. - Replaced B12. Iron replacement as well. - TSH normal. - Monitor H&H and transfuse as necessary. (8) Hypertension: Qualifiers: Hypertension type: essential hypertension Qualified Code(s): I10 - Essential (primary) hypertension Code(s): I10 - Essential (primary) hypertension Status: Acute Assessment and Plan: Chronic, blood pressure was poorly controlled. Home medications were resumed. - Lasix 80 mg PO daily - Coreg 6.25 mg BID - Hydralazine 10 mg BID, holding as patients blood pressures have been running low - Losartan 100 mg daily, decreased to 50 mg daily given that patient has been consistently hypotensive into the 90s systolic. Patient continues to be hypotensive. Losartan placed on hold. - Spironolactone 25 mg daily, potassium level WNL on am labs. (9) Chronic atrial fibrillation: Code(s): I48.20 - Chronic atrial fibrillation, unspecified Status: Acute Assessment and Plan: Chronic atrial fibrillation. Echo as above. - She is not on Eliquis despite high [id number] score of 7. - Start Lovenox 100 mg subq q12. Will need to stay on Lovenox for a day after patient reaches INR of 2-3 then in can be discontinued with patient receiving only Warfarin. Lovenox discontinued on 09/28. - Started Warfarin 5 mg PO qpm on 09/23, dose increased to 7.5 mg on 09/25. Decreased back to 5.0 mg on 09/29 as INR was progressively increasing. Goal 2-3. Patient will need set up for INR testing at discharge. (10) Chronic obstructive pulmonary disease: Code(s): J44.9 - Chronic obstructive pulmonary disease, unspecified Status: Acute Assessment and Plan: - Continue bronchodilators. - Continue Advair. (11) Hypothyroidism (acquired): Code(s): E03.9 - Hypothyroidism, unspecified Status: Acute Assessment and Plan: TSH normal. Continue levothyroxine. (12) Type 2 diabetes mellitus: Code(s): E11.9 - Type 2 diabetes mellitus without complications Status: Acute Assessment and Plan: A1c 5.4%. The patient's blood glucose was reviewed on 09/21 Glucose remains well controlled. Continue AccuCheks covering with sliding scale. Hypoglycemia protocol available as needed. Continue to monitor (13) Obstructive sleep apnea: Code(s): G47.33 - Obstructive sleep apnea (adult) (pediatric) Status: Acute Assessment and Plan: Patient states she is compliant with BiPAP at night. Continue auto BiPAP Plan DVT prophylaxis Warfarin Code status -full Subjective Date/time seen: 09/30/24 15:25 Interval history: 79-year-old female with multiple medical problems including chronic respiratory failure on home oxygen, obstructive sleep apnea, chronic obstructive pulmonary disease, pulmonary hypertension, heart failure with preserved ejection fraction, chronic atrial fibrillation for which she is prescribed anticoagulation however she has not been taking it for a couple of months due to cost, chronic anemia, and anxiety who presented to the emergency department via EMS from home for evaluation of shortness of breath. patient is pleasant lying in bed. She states that she feels terrible and endorses severe right-sided abdominal pain with radiation to her right flank. KUB unremarkable. Was planning on discharging patient however due to pain being uncontrolled will keep her inpatient at this time and trial her on Toradol. Patient will likely need pain management in the outpatient setting. She notes that she has had decreased oral intake the pain continued to worsened with meals. Patient has no other complaints at this time denying chest pain, shortness a breath, and palpitations. Review of Systems Review of Systems: All systems reviewed & are unremarkable except as noted in HPI and below Exam Narrative: AF HR 72 RR 19 SPO2 97 3L NC (baseline) BP 116/65 General: female in no acute respiratory distress who is nontoxic appearing, lying semi recumbent in bed. HEENT: Normocephalic. Atraumatic. Extraocular movement intact. Sclera clear and anicteric. No facial asymmetry. Chest: Lungs are clear but diminished to auscultation bilaterally. No wheezes or crackles. CV: Heart was regular rate. S1-S2. No murmurs, gallops, or rubs. Abd: Abdomen was soft. RQ Tenderness. R CVA tenderness. Nondistended. Positive bowel sounds. No organomegaly or masses. Ext: No clubbing, cyanosis, or edema. 2+ DP pulses bilaterally. Neuro: Patient is alert and oriented x3. Cranial nerves 2-12 are intact. Speech is clear. Objective Data Vital Signs Vital Signs: Vital Signs - 24 hr 09/29/24 15:59 09/29/24 16:27 09/29/24 16:27 Temperature Pulse Rate 65 74 Respiratory Rate 16 20 Blood Pressure 111/67 Pulse Oximetry 99 97 Oxygen Delivery Nasal Cannula Oxygen Flow Rate 2 Fraction of Inspired Oxygen 28 09/29/24 16:33 09/29/24 17:06 09/29/24 20:02 Temperature Pulse Rate 80 74 Respiratory Rate 20 16 Blood Pressure 112/49 L Pulse Oximetry 99 98 Oxygen Delivery Nasal Cannula Oxygen Flow Rate 2 Fraction of Inspired Oxygen 09/29/24 20:02 09/29/24 20:11 09/29/24 20:22 Temperature Pulse Rate 70 73 76 Respiratory Rate 16 16 Blood Pressure Pulse Oximetry Oxygen Delivery Oxygen Flow Rate Fraction of Inspired Oxygen 09/29/24 20:00 09/29/24 20:20 09/29/24 22:07 Temperature 97.3 F L Pulse Rate 65 76 70 Respiratory Rate 20 16 13 Blood Pressure 109/55 L Pulse Oximetry 99 98 98 Oxygen Delivery Nasal Cannula Autopap Oxygen Flow Rate 2 Fraction of Inspired Oxygen 28 09/29/24 23:31 09/30/24 02:27 09/30/24 04:00 Temperature 97.8 F 97.6 F Pulse Rate 60 68 76 Respiratory Rate 20 16 20 Blood Pressure 123/52 L 103/59 L Pulse Oximetry 100 99 100 Oxygen Delivery Autopap Oxygen Flow Rate Fraction of Inspired Oxygen 09/30/24 07:39 09/30/24 07:39 09/30/24 07:51 Temperature Pulse Rate 67 64 Respiratory Rate 20 20 Blood Pressure Pulse Oximetry 98 Oxygen Delivery Nasal Cannula Oxygen Flow Rate 2 Fraction of Inspired Oxygen 09/30/24 08:00 09/30/24 09:23 09/30/24 09:25 Temperature 97.6 F 97.6 F Pulse Rate 64 74 75 Respiratory Rate 19 20 Blood Pressure 110/62 118/52 L Pulse Oximetry 98 98 Oxygen Delivery Oxygen Flow Rate Fraction of Inspired Oxygen 09/30/24 09:25 09/30/24 11:24 09/30/24 11:25 Temperature Pulse Rate 62 Respiratory Rate 20 Blood Pressure Pulse Oximetry 98 97 Oxygen Delivery Nasal Cannula Nasal Cannula Oxygen Flow Rate 2 2 Fraction of Inspired Oxygen 09/30/24 11:35 09/30/24 12:00 Temperature 97.6 F Pulse Rate 73 72 Respiratory Rate 20 19 Blood Pressure 116/68 Pulse Oximetry 97 Oxygen Delivery Oxygen Flow Rate Fraction of Inspired Oxygen Intake/Output Intake/Output: Intake & Output 09/27/24 09/28/24 09/29/24 09/30/24 23:59 23:59 23:59 23:59 Intake Total 598 1230 2448 762 Output Total 670 Balance 598 1230 1778 762 Meds/Results Medications: Active Medications Generic Name Dose Route Start Last Admin Trade Name Freq PRN Reason Stop Dose Admin Acetaminophen 650 mg 09/19/24 22:21 09/30/24 09:30 Acetaminophen 325 Mg Tablet PO 650 mg Q6H PRN Administration Mild Pain (1-3) or Fever Hydrocodone Bitart/Acetaminophen 1 tab 09/28/24 07:45 09/30/24 11:11 Hydrocodone/Acetaminophen (*Crx) 10-325 Mg Tablet PO 1 tab Q6H PRN Administration Pain Rated 7-10 Albuterol 1 - 2 puff 09/19/24 16:27 Albuterol Sulfate (*Sp) Aerosol 1 Puff INHALATION Q4-6H PRN Shortness Of Breath Albuterol 2.5 mg 09/20/24 12:00 09/30/24 11:22 Albuterol Sulfate Neb 2.5 Mg/3 Ml Inh INHALATION 2.5 mg QIDRT ERICKSON Administration Alprazolam 0.5 mg 09/19/24 21:00 09/30/24 09:25 Alprazolam (*Crx) 0.5 Mg Tablet PO 0.5 mg Q12HR ERICKSON Administration Aspirin 81 mg 09/20/24 09:00 09/30/24 09:25 Aspirin 81 Mg Enteric Tablet PO 81 mg QAM ERICKSON Administration Atorvastatin Calcium 20 mg 09/19/24 21:00 09/29/24 20:22 Atorvastatin 20 Mg Tablet PO 20 mg QHS ERICKSON Administration Carvedilol 6.25 mg 09/19/24 21:00 09/30/24 09:25 Carvedilol 6.25 Mg Tablet PO 6.25 mg Q12HR ERICKSON Administration Cyanocobalamin 1,000 mcg 09/21/24 09:00 09/30/24 09:26 Cyanocobalamin 1,000 Mcg Tablet PO 1,000 mcg QAM ERICKSON Administration Dextrose 12.5 gm 09/19/24 22:21 Dextrose 50% 25 Gm/50 Ml Syringe IV PUSH PRN PRN Hypoglycemia Protocol Dicyclomine HCl 20 mg 09/26/24 11:30 09/30/24 11:11 Dicyclomine Hcl 10 Mg Capsule PO 20 mg ACHS ERICKSON Administration Ferrous Sulfate 325 mg 09/21/24 09:00 09/30/24 09:25 Ferrous Sulfate [address] PO 325 mg DAILY ERICKSON Administration Furosemide 80 mg 09/29/24 09:00 09/30/24 09:25 Furosemide 80 Mg Tablet BY MOUTH 80 mg DAILY ERICKSON Administration Glucagon 1 mg 09/19/24 22:21 Glucagon For Inj 1 Mg Vial IM PRN PRN Hypoglycemia Protocol Glucose 15 gm 09/19/24 22:21 Glucose Oral Gel 15 Gm Of Glucse In 37.5 Gm Tube PO PRN PRN Hypoglycemia Protocol Hydralazine HCl 10 mg 09/19/24 17:00 09/29/24 17:13 Hydralazine 10 Mg Tablet PO Not Given BID ERICKSON Dextrose 1,000 mls @ 100 mls/hr 09/19/24 22:21 Dextrose 5% 1,000 Ml IVPB PRN PRN Hypoglycemia Protocol Insulin Aspart 3 - 6 units 09/20/24 08:00 09/30/24 13:04 Insulin Aspart (*Bkc) 100 Units/Ml SUB-Q Not Given TIDWM [facility] Protocol Insulin Aspart 1 - 3 units 09/20/24 21:00 09/29/24 21:16 Insulin Aspart (*Bkc) 100 Units/Ml SUB-Q Not Given HS [facility] Protocol Levothyroxine Sodium 112 mcg 09/20/24 06:30 09/30/24 05:32 Levothyroxine Sodium 112 Mcg Tablet PO 112 mcg DAILY@0630 [facility] Administration Lidocaine 1 patch 09/26/24 10:00 09/30/24 09:28 Lidocaine 5% Patch TRANSDERM 1 patch DAILY [facility] Administration Losartan Potassium 50 mg 09/27/24 09:00 09/29/24 09:02 Losartan Potassium 50 Mg Tablet PO Not Given DAILY [facility] Miscellaneous Information 1 each 09/29/24 00:01 Order Clarification XX 10/29/24 00:00 CLARIFY [facility] Nitroglycerin 0.4 mg 09/19/24 23:36 09/20/24 07:43 Nitroglycerin Sl 0.4 Mg Tablet SUBLINGUAL 0.4 mg Q5MIN PRN Administration Chest Pain Pantoprazole Sodium 40 mg 09/20/24 09:00 09/30/24 09:25 Pantoprazole 40 Mg Tablet PO 40 mg DAILY [facility] Administration Fluticasone/Salmeterol 2 puff 09/20/24 20:00 09/30/24 07:38 Fluticasone/Salmeterol 45-21 Mcg Inhaler 1 Puff INHALATION 2 puff Q12HRT [facility] Administration Simethicone 0.6 ml 09/29/24 10:02 09/29/24 10:02 Simethicone Oral Suspension 20 Mg/0.3 Ml 30 Ml Bottle PO 0.6 ml ONCE PRN Administration Gas Discomfort Spironolactone 25 mg 09/20/24 09:00 09/30/24 09:25 Spironolactone 25 Mg Tablet PO 25 mg DAILY [facility] Administration Warfarin Sodium 5 mg 09/29/24 17:00 09/29/24 17:07 Warfarin (*Pbkc) 5 Mg Tablet PO 5 mg DAILY@1700 [facility] Administration Radiology Results: ITS Impressions Chest X-Ray 09/19/24 10:09 Impression: Probable mild bibasilar pulmonary edema and central congestive change. Chest CTA 09/20/24 08:07 IMPRESSION: 1. No pulmonary collision. 2. Patchy airspace opacities in the right lower lobe which suspicious for aspiration and/or pneumonia. 3. Mild emphysema. 4. Very small right pleural effusion. 5. Cardiomegaly. 6. Enlargement of the central pulmonary arteries consistent with pulmonary arterial hypertension. 7. Small sliding-type hiatal hernia with change of Michelle-en-Y gastric bypass procedure. Venous Doppler Study 09/20/24 13:07 IMPRESSION: 1. [id number]-mful deep venous thrombosis in the right peroneal veins. Findings were discussed with Nicole Barragan, the nurse caring for the patient, at 1:12 PM. 2. No deep venous thrombosis in the left lower limb. Modified Barium Swallow 09/20/24 13:27 IMPRESSION: Patient tolerated regular consistency oral feedings in the upright position. Please correlate with speech pathologist findings and specific feeding recommendations. Abdomen/Pelvis CTA 09/24/24 15:13 IMPRESSION: 1. Nonspecific diarrhea with no obstruction or abnormal bowel wall thickening. 2. Small amount of scattered atherosclerotic plaque along the normal caliber abdominal aorta. No evaluation significant stenosis and several of its branches with no hemodynamically significant stenosis seen at the celiac axis, superior or inferior mesenteric arteries. 3. Mild cardiomegaly. 4. Small sliding-type hiatal hernia. 5. Cirrhosis. Abdomen Ultrasound 09/27/24 16:35 IMPRESSION: Sonographic findings suggestive of cirrhosis. Abdomen X-Ray 09/30/24 14:18 IMPRESSION: 1. Normal bowel gas pattern. Labs Labs: Laboratory Results - last 24 hr 09/29/24 09/29/24 09/30/24 16:55 21:13 04:58 WBC 5.1 RBC 3.13 L Hgb 10.1 L Hct 33.0 L MCV 105.4 H MCH 32.3 MCHC 30.6 L RDW 13.9 Plt Count 274 MPV 9.5 Immature Gran % (Auto) 0.4 Neut % (Auto) 67.6 Lymph % (Auto) 20.1 [place] % (Auto) 8.2 Eos % (Auto) 2.5 Baso % (Auto) 1.2 Lymph # (Auto) 1.03 [place] # (Auto) 0.4 Eos # (Auto) 0.1 Baso # (Auto) 0.1 Abs Immat Gran (auto) 0.02 Absolute Neuts (auto) 3.5 Absolute Nucleated RBC 0.000 Nucleated RBC % 0.0 Platelet Estimate Adequate Macrocytosis 2+ Schistocytes None seen PT 30.2 H INR 2.8 Sodium 133 L Potassium 3.8 Chloride 100 Carbon Dioxide 32 H Anion Gap 1 L BUN 28 H Creatinine 0.90 Estim Creat Clear Calc 54 Estimated GFR > 60 Glucose 83 POC Capillary Glucose 101 104 Calcium 8.5 Total Bilirubin 0.4 AST 50 H ALT 38 H Alkaline Phosphatase 114 Total Protein 6.0 L Albumin 3.5 09/30/24 09/30/24 08:05 11:41 WBC RBC Hgb Hct MCV MCH MCHC RDW Plt Count MPV Immature Gran % (Auto) Neut % (Auto) Lymph % (Auto) [place] % (Auto) Eos % (Auto) Baso % (Auto) Lymph # (Auto) [place] # (Auto) Eos # (Auto) Baso # (Auto) Abs Immat Gran (auto) Absolute Neuts (auto) Absolute Nucleated RBC Nucleated RBC % Platelet Estimate Macrocytosis Schistocytes PT INR Sodium Potassium Chloride Carbon Dioxide Anion Gap BUN Creatinine Estim Creat Clear Calc Estimated GFR Glucose POC Capillary Glucose 89 79 Calcium Total Bilirubin AST ALT Alkaline Phosphatase Total Protein Albumin Quality VTE Prophylaxis VTE prophylaxis: pharmacologic ordered
[2024-09-30] MEDS: KETOROLAC 10 MG TABLET PO (16:06)
[2024-09-30] MEDS: WARFARIN (*PBKC) 5 MG TABLET PO (16:07)
[2024-09-30 17:32] LABS: Glucose Point of Care 146 mg/dl (65-105)
[2024-09-30] MEDS: ATORVASTATIN 20 MG TABLET PO (20:44)
[2024-09-30 20:47] LABS: Glucose Point of Care 87 mg/dl (65-105)
[2024-10-01] VITALS (10 sets, daily range): BP systolic 112–118; BP diastolic 50–60; PULSE 61–74; RESP 14–21; TEMP 36.5–36.8; O2SAT 96–100
[2024-10-01] MEDS: WATER FOR IRRIGATION, STERILE 1,000 ML BOTTLE 1000 ML (01:04)
[2024-10-01] MEDS: HYDROcodone/acetaminophen (*CRX) 10-325 MG TABLET 1 TAB PO ×3 (01:04→14:25)
[2024-10-01] MEDS: DICYCLOMINE HCL 10 MG CAPSULE 20 MG PO ×2 (05:47→11:34)
[2024-10-01] MEDS: LEVOTHYROXINE SODIUM 112 MCG TABLET PO (05:47)
[2024-10-01 06:12] LABS: INR 3.5; Prothrombin Time 36.2 Seconds (11.1-14.7)
[2024-10-01] MEDS: ALBUTEROL SULFATE NEB 2.5 MG/3 ML INH INHALATION ×2 (07:45→11:20)
[2024-10-01] MEDS: FLUTICASONE/SALMETEROL 45-21 MCG INHALER 1 PUFF 2 PUFF INHALATION (07:47)
--- NOTE | 2024-10-01 07:49 | PM.IMPN ---
Progress Note: A&P Assessment and Plan (1) Chronic respiratory failure with hypoxia: Code(s): J96.11 - Chronic respiratory failure with hypoxia Status: Acute Assessment and Plan: Patient is on 3-4 L at rest, with exertion and at night. She has a high SpO2 on 3LNC with Sa02 98%. Wean O2 as tolerated to keep SpO2>92%. Follow (2) Abdominal pain: Code(s): R10.9 - Unspecified abdominal pain Status: Acute Assessment and Plan: Severe abdominal pain directly after eating. Possible etiology includes duodenal vs peptic ulcer vs gas build up 2/2 aerophagia from COPD vs other. Patient is s/p cholecystectomy. Had a gastric bypass in the 2007. - Analgesics - Stool studies ordered to rule out infectious cause of abdominal pain - CTA abdomen/pelvis: 1. Nonspecific diarrhea with no obstruction or abnormal bowel wall thickening. 2. Small amount of scattered atherosclerotic plaque along the normal caliber abdominal aorta. No evaluation significant stenosis and several of its branches with no hemodynamically significant stenosis seen at the celiac axis, superior or inferior mesenteric arteries. 3. Mild cardiomegaly. 4. Small sliding-type hiatal hernia. 5. Cirrhosis. - Abdominal US ordered to further evaluate possible cirrhosis seen on CT: Sonographic findings suggestive of cirrhosis. - GI consulted s/p EGD on 09/29: unremarkable Started on Bentyl TIDWM Follow-up in the GI office afterwards for cirrhosis which appears to be compensated and most likely 2nd to fatty liver disease. 09/30: Patient endorsing severe abdominal pain with radiation to the back. EGD and KUB unremarkable. Endorsing decreased oral intake 2/2 pain. Trial Toradol. Remains on home norco. Monitor. (3) CHF exacerbation: Code(s): I50.9 - Heart failure, unspecified Status: Acute Assessment and Plan: Suspect acute on chronic diastolic CHF exacerbation and possibly pneumonia. Mildly elevated Trop related to CHF. - Symptoms: Shortness of breath. - Current medications: Lasix 80 mg PO daily - Supportive treatment Tyl and ibu prn Nebs prn - Fluid restriction 1500 ml/day - BNP: 7300 - D dimer positive - Troponin mildly elevated at 0.039 -> 0.035. EKG showing AFib, RAD and Rt BBB. - AB.35/40/94 on 4 L. - Chest x-ray shows mild bibasilar pulmonary edema. - CTA was negative for PE but does show patchy airspace opacities in the right lower lobe suspicious for aspiration and/or pneumonia. - Echo: EF 62%, Grade III diastolic dysfxn, RVE, mild pHTN (54mmHg) - Monitor vital signs, I&Os, BUN/creatinine, daily weights, neuro status and patient is a fall risk - Monitor serum electrolytes, Keep serum Potassium>4 and serum Magnesium>2 and CBC (4) Pneumonia: Qualifiers: Aspiration pneumonia type: unspecified Laterality: bilateral Lung location: lower lobe of lung Pneumonia type: aspiration pneumonia Qualified Code(s): J69.0 - Pneumonitis due to inhalation of food and vomit Code(s): J18.9 - Pneumonia, unspecified organism Status: Acute Assessment and Plan: - Chest x-ray shows mild bibasilar pulmonary edema. - CTA was negative for PE but does show patchy airspace opacities in the right lower lobe suspicious for aspiration and/or pneumonia. - Complicating Factors: CHF exacerbation and COPD on chronic O2 supplementation - Antibiotics: Augmentin and doxycycline, course to be completed on 09/26 - Viral PCR: negative for Flu/COVID/RSV - Sputum culture: Normal oropharyngeal maria luz - MRSA negative - supportive treatment - Monitor vital signs, I&Os, neuro status and patient is a fall risk - Follow WBC, serum electrolytes, temperature curves and cultures - Speech eval showing no concerns. She did recommend Easy to chew Level 7 which was ordered. Since aspiration less likely, will stop Flagyl. De-escalate abx and change to oral Resolved. (5) DVT (deep venous thrombosis): Code(s): I82.409 - Acute embolism and thrombosis of unspecified deep veins of unspecified lower extremity Status: Acute Assessment and Plan: Patient has ethan off her Eliquis prior to admission, unable to afford Eliquis or Xarelto - INR 2.8 on am labs - Doppler showing below the knee DVT right peroneal veins. - Start Lovenox 100 mg subq q12. Will need to stay on Lovenox for a day after patient reaches INR of 2-3 then in can be discontinued with patient receiving only Warfarin. Lovenox discontinued on 09/28. - Started Warfarin 5 mg PO qpm on 09/23, dose increased to 7.5 mg on 11/28. Decreased back to 5.0 mg on 09/29 as INR was progressively increasing. Goal 2-3. Patient will need set up for INR testing at discharge. 09/28 INR 2,5- will give Lovenox dose in am and pm and stop- pharmacy communication sent and Con ZIMMERMAN updated 10/01- dose decreased to 4 mg as INR 3.5. goal 2-3 monitor (6) UTI (urinary tract infection): Qualifiers: Hematuria presence: without hematuria Urinary tract infection type: site unspecified Qualified Code(s): N39.0 - Urinary tract infection, site not specified Code(s): N39.0 - Urinary tract infection, site not specified Status: Acute Assessment and Plan: UA is concerning for UTI. UCx collected. Rocephin started. UCx EColi that is relatively sterling-sensitive. Changed to Augmentin to complete a course Resolved. 09/29: Endorsing vaginal itching concerning for yeast infection. Given 1x dose of fluconazole. (7) Macrocytic anemia: Code(s): D53.9 - Nutritional anemia, unspecified Status: Acute Assessment and Plan: Patient with chronic anemia in the past but more recently her hemoglobin was 13 in April. Hemoglobin 10.2 on admission with macrocytosis. - H/H 10.1/33 on am labs - Iron studies showed normal iron and TIBC with saturation of 12%. Ferritin normal at 67. - B12 level low at 189 with a normal folate. - Patient with B12 deficiency. Iron stores (Ferritin <100)are low as well. - Replaced B12. Iron replacement as well. - TSH normal. - Monitor H&H and transfuse as necessary. (8) Hypertension: Qualifiers: Hypertension type: essential hypertension Qualified Code(s): I10 - Essential (primary) hypertension Code(s): I10 - Essential (primary) hypertension Status: Acute Assessment and Plan: Chronic, blood pressure was poorly controlled. Home medications were resumed. - Lasix 80 mg PO daily - Coreg 6.25 mg BID - Hydralazine 10 mg BID, holding as patients blood pressures have been running low - Losartan 100 mg daily, decreased to 50 mg daily given that patient has been consistently hypotensive into the 90s systolic. Patient continues to be hypotensive. Losartan placed on hold. - Spironolactone 25 mg daily, potassium level WNL on am labs. (9) Chronic atrial fibrillation: Code(s): I48.20 - Chronic atrial fibrillation, unspecified Status: Acute Assessment and Plan: Chronic atrial fibrillation. Echo as above. - She is not on Eliquis despite high [id number] score of 7. - Start Lovenox 100 mg subq q12. Will need to stay on Lovenox for a day after patient reaches INR of 2-3 then in can be discontinued with patient receiving only Warfarin. Lovenox discontinued on 09/28. - Started Warfarin 5 mg PO qpm on 09/23, dose increased to 7.5 mg on 09/25. Decreased back to 5.0 mg on 09/29 as INR was progressively increasing. Goal 2-3. Patient will need set up for INR testing at discharge. (10) Chronic obstructive pulmonary disease: Code(s): J44.9 - Chronic obstructive pulmonary disease, unspecified Status: Acute Assessment and Plan: - Continue bronchodilators. - Continue Advair. (11) Hypothyroidism (acquired): Code(s): E03.9 - Hypothyroidism, unspecified Status: Acute Assessment and Plan: TSH normal. Continue levothyroxine. (12) Type 2 diabetes mellitus: Code(s): E11.9 - Type 2 diabetes mellitus without complications Status: Acute Assessment and Plan: A1c 5.4%. The patient's blood glucose was reviewed on 09/21 Glucose remains well controlled. Continue AccuCheks covering with sliding scale. Hypoglycemia protocol available as needed. Continue to monitor (13) Obstructive sleep apnea: Code(s): G47.33 - Obstructive sleep apnea (adult) (pediatric) Status: Acute Assessment and Plan: Patient states she is compliant with BiPAP at night. Continue auto BiPAP Plan DVT prophylaxis Warfarin Code status -full Subjective Date/time seen: 10/01/24 07:49 Interval history: 79-year-old female with multiple medical problems including chronic respiratory failure on home oxygen, obstructive sleep apnea, chronic obstructive pulmonary disease, pulmonary hypertension, heart failure with preserved ejection fraction, chronic atrial fibrillation for which she is prescribed anticoagulation however she has not been taking it for a couple of months due to cost, chronic anemia, and anxiety who presented to the emergency department via EMS from home for evaluation of shortness of breath. patient is pleasant lying in bed. She states that she feels terrible and endorses severe right-sided abdominal pain with radiation to her right flank. KUB unremarkable. Was planning on discharging patient however due to pain being uncontrolled will keep her inpatient at this time and trial her on Toradol. Patient will likely need pain management in the outpatient setting. She notes that she has had decreased oral intake the pain continued to worsened with meals. Patient has no other complaints at this time denying chest pain, shortness a breath, and palpitations. 10/01- assuming care. Review of Systems Review of Systems: 12 systems were reviewed and are negative except for as per HPI. All systems reviewed & are unremarkable except as noted in HPI and below Exam Narrative: AF HR 72 RR 19 SPO2 97 3L NC (baseline) BP 116/65 General: female in no acute respiratory distress who is nontoxic appearing, lying semi recumbent in bed. HEENT: Normocephalic. Atraumatic. Extraocular movement intact. Sclera clear and anicteric. No facial asymmetry. Chest: Lungs are clear but diminished to auscultation bilaterally. No wheezes or crackles. CV: Heart was regular rate. S1-S2. No murmurs, gallops, or rubs. Abd: Abdomen was soft. RQ Tenderness. R CVA tenderness. Nondistended. Positive bowel sounds. No organomegaly or masses. Ext: No clubbing, cyanosis, or edema. 2+ DP pulses bilaterally. Neuro: Patient is alert and oriented x3. Cranial nerves 2-12 are intact. Speech is clear. Const: General: comfortable and no acute distress Eyes: Sclera: sclerae normal Resp: Auscultation: diminished lung sounds Cardio: Rhythm: abnormal rhythm irregularly irregular GI: Auscultation: normal bowel sounds Other: obese Skin: General skin exam: no rashes or lesions noted Neuro: Speech: normal speech Extrem: General: no pedal edema Psych: Affect: normal affect Objective Data Vital Signs Vital Signs: Vital Signs - 24 hr 09/30/24 07:51 09/30/24 08:00 09/30/24 09:23 Temperature 97.6 F 97.6 F Pulse Rate 64 64 74 Respiratory Rate 20 19 20 Blood Pressure 110/62 118/52 L Pulse Oximetry 98 98 Oxygen Delivery Oxygen Flow Rate 09/30/24 09:25 09/30/24 09:25 09/30/24 11:24 Temperature Pulse Rate 75 62 Respiratory Rate 20 Blood Pressure Pulse Oximetry 98 Oxygen Delivery Nasal Cannula Oxygen Flow Rate 2 09/30/24 11:25 09/30/24 11:35 09/30/24 12:00 Temperature 97.6 F Pulse Rate 73 72 Respiratory Rate 20 19 Blood Pressure 116/68 Pulse Oximetry 97 97 Oxygen Delivery Nasal Cannula Oxygen Flow Rate 2 09/30/24 16:35 09/30/24 16:48 09/30/24 16:00 Temperature 97.7 F Pulse Rate 69 72 72 Respiratory Rate 20 20 19 Blood Pressure 112/52 L Pulse Oximetry 100 Oxygen Delivery Oxygen Flow Rate 09/30/24 19:56 09/30/24 19:57 09/30/24 20:07 Temperature Pulse Rate 57 L 66 Respiratory Rate 20 20 Blood Pressure Pulse Oximetry 98 Oxygen Delivery Nasal Cannula Oxygen Flow Rate 2 09/30/24 20:00 09/30/24 20:44 09/30/24 20:40 Temperature 97.7 F Pulse Rate 75 71 Respiratory Rate 18 Blood Pressure 93/49 L Pulse Oximetry 99 99 Oxygen Delivery Nasal Cannula Oxygen Flow Rate 2 09/30/24 20:15 09/30/24 23:54 10/01/24 02:20 Temperature 97.7 F Pulse Rate 66 68 68 Respiratory Rate 19 20 21 H Blood Pressure 96/44 L Pulse Oximetry 98 100 Oxygen Delivery Autopap Autopap Oxygen Flow Rate 10/01/24 04:00 Temperature 97.7 F Pulse Rate 70 Respiratory Rate 20 Blood Pressure 112/50 L Pulse Oximetry 98 Oxygen Delivery Oxygen Flow Rate Intake/Output Intake/Output: Intake & Output 09/28/24 09/29/24 09/30/24 10/01/24 23:59 23:59 23:59 23:59 Intake Total 1230 2448 1534 320 Output Total 670 Balance 1230 1778 1534 320 Meds/Results Medications: Active Medications Generic Name Dose Route Start Last Admin Trade Name Freq PRN Reason Stop Dose Admin Acetaminophen 650 mg 09/19/24 22:21 09/30/24 09:30 Acetaminophen 325 Mg Tablet PO 650 mg Q6H PRN Administration Mild Pain (1-3) or Fever Hydrocodone Bitart/Acetaminophen 1 tab 09/28/24 07:45 10/01/24 01:04 Hydrocodone/Acetaminophen (*Crx) 10-325 Mg Tablet PO 1 tab Q6H PRN Administration Pain Rated 7-10 Albuterol 1 - 2 puff 09/19/24 16:27 Albuterol Sulfate (*Sp) Aerosol 1 Puff INHALATION Q4-6H PRN Shortness Of Breath Albuterol 2.5 mg 09/20/24 12:00 10/01/24 07:45 Albuterol Sulfate Neb 2.5 Mg/3 Ml Inh INHALATION 2.5 mg QIDRT ERICKSON Administration Alprazolam 0.5 mg 09/19/24 21:00 09/30/24 20:44 Alprazolam (*Crx) 0.5 Mg Tablet PO 0.5 mg Q12HR ERICKSON Administration Aspirin 81 mg 09/20/24 09:00 09/30/24 09:25 Aspirin 81 Mg Enteric Tablet PO 81 mg QAM ERICKSON Administration Atorvastatin Calcium 20 mg 09/19/24 21:00 09/30/24 20:44 Atorvastatin 20 Mg Tablet PO 20 mg QHS ERICKSON Administration Carvedilol 6.25 mg 09/19/24 21:00 09/30/24 20:44 Carvedilol 6.25 Mg Tablet PO 6.25 mg Q12HR ERICKSON Administration Cyanocobalamin 1,000 mcg 09/21/24 09:00 09/30/24 09:26 Cyanocobalamin 1,000 Mcg Tablet PO 1,000 mcg QAM ERICKSON Administration Dextrose 12.5 gm 09/19/24 22:21 Dextrose 50% 25 Gm/50 Ml Syringe IV PUSH PRN PRN Hypoglycemia Protocol Dicyclomine HCl 20 mg 09/26/24 11:30 10/01/24 05:47 Dicyclomine Hcl 10 Mg Capsule PO 20 mg ACHS ERICKSON Administration Ferrous Sulfate 325 mg 09/21/24 09:00 09/30/24 09:25 Ferrous Sulfate [address] PO 325 mg DAILY ERICKSON Administration Furosemide 80 mg 09/29/24 09:00 09/30/24 09:25 Furosemide 80 Mg Tablet BY MOUTH 80 mg DAILY ERICKSON Administration Glucagon 1 mg 09/19/24 22:21 Glucagon For Inj 1 Mg Vial IM PRN PRN Hypoglycemia Protocol Glucose 15 gm 09/19/24 22:21 Glucose Oral Gel 15 Gm Of Glucse In 37.5 Gm Tube PO PRN PRN Hypoglycemia Protocol Hydralazine HCl 10 mg 09/19/24 17:00 09/29/24 17:13 Hydralazine 10 Mg Tablet PO Not Given BID ERICKSON Dextrose 1,000 mls @ 100 mls/hr 09/19/24 22:21 Dextrose 5% 1,000 Ml IVPB PRN PRN Hypoglycemia Protocol Insulin Aspart 3 - 6 units 09/20/24 08:00 09/30/24 17:34 Insulin Aspart (*Bkc) 100 Units/Ml SUB-Q Not Given TIDWM [facility] Protocol Insulin Aspart 1 - 3 units 09/20/24 21:00 09/30/24 20:48 Insulin Aspart (*Bkc) 100 Units/Ml SUB-Q Not Given HS [facility] Protocol Levothyroxine Sodium 112 mcg 09/20/24 06:30 10/01/24 05:47 Levothyroxine Sodium 112 Mcg Tablet PO 112 mcg DAILY@0630 [facility] Administration Lidocaine 1 patch 09/26/24 10:00 09/30/24 09:28 Lidocaine 5% Patch TRANSDERM 1 patch DAILY ERICKSON Administration Losartan Potassium 50 mg 09/27/24 09:00 09/29/24 09:02 Losartan Potassium 50 Mg Tablet PO Not Given DAILY [facility] Miscellaneous Information 1 each 09/29/24 00:01 Order Clarification XX 10/29/24 00:00 CLARIFY [facility] Nitroglycerin 0.4 mg 09/19/24 23:36 09/20/24 07:43 Nitroglycerin Sl 0.4 Mg Tablet SUBLINGUAL 0.4 mg Q5MIN PRN Administration Chest Pain Pantoprazole Sodium 40 mg 09/20/24 09:00 09/30/24 09:25 Pantoprazole 40 Mg Tablet PO 40 mg DAILY ERICKSON Administration Fluticasone/Salmeterol 2 puff 09/20/24 20:00 10/01/24 07:47 Fluticasone/Salmeterol 45-21 Mcg Inhaler 1 Puff INHALATION 2 puff Q12HRT ERICKSON Administration Simethicone 0.6 ml 09/29/24 10:02 09/29/24 10:02 Simethicone Oral Suspension 20 Mg/0.3 Ml 30 Ml Bottle PO 0.6 ml ONCE PRN Administration Gas Discomfort Spironolactone 25 mg 09/20/24 09:00 09/30/24 09:25 Spironolactone 25 Mg Tablet PO 25 mg DAILY ERICKSON Administration Warfarin Sodium 5 mg 09/29/24 17:00 09/30/24 16:07 Warfarin (*Pbkc) 5 Mg Tablet PO 5 mg DAILY@1700 ERICKSON Administration Radiology Results: ITS Impressions Chest X-Ray 09/19/24 10:09 Impression: Probable mild bibasilar pulmonary edema and central congestive change. Chest CTA 09/20/24 08:07 IMPRESSION: 1. No pulmonary collision. 2. Patchy airspace opacities in the right lower lobe which suspicious for aspiration and/or pneumonia. 3. Mild emphysema. 4. Very small right pleural effusion. 5. Cardiomegaly. 6. Enlargement of the central pulmonary arteries consistent with pulmonary arterial hypertension. 7. Small sliding-type hiatal hernia with change of Michelle-en-Y gastric bypass procedure. Venous Doppler Study 09/20/24 13:07 IMPRESSION: 1. [id number] deep venous thrombosis in the right peroneal veins. Findings were discussed with Nicole Barragan, the nurse caring for the patient, at 1:12 PM. 2. No deep venous thrombosis in the left lower limb. Modified Barium Swallow 09/20/24 13:27 IMPRESSION: Patient tolerated regular consistency oral feedings in the upright position. Please correlate with speech pathologist findings and specific feeding recommendations. Abdomen/Pelvis CTA 09/24/24 15:13 IMPRESSION: 1. Nonspecific diarrhea with no obstruction or abnormal bowel wall thickening. 2. Small amount of scattered atherosclerotic plaque along the normal caliber abdominal aorta. No evaluation significant stenosis and several of its branches with no hemodynamically significant stenosis seen at the celiac axis, superior or inferior mesenteric arteries. 3. Mild cardiomegaly. 4. Small sliding-type hiatal hernia. 5. Cirrhosis. Abdomen Ultrasound 09/27/24 16:35 IMPRESSION: Sonographic findings suggestive of cirrhosis. Abdomen X-Ray 09/30/24 14:18 IMPRESSION: 1. Normal bowel gas pattern. Labs Labs: Laboratory Results - last 24 hr 09/30/24 09/30/24 09/30/24 08:05 11:41 17:19 PT INR POC Capillary Glucose 89 79 146 H 09/30/24 10/01/24 20:44 05:12 PT 36.2 H INR 3.5 POC Capillary Glucose 87 Quality VTE Prophylaxis VTE prophylaxis: pharmacologic ordered
[2024-10-01 08:00] LABS: Glucose Point of Care 95 mg/dl (65-105)
[2024-10-01] MEDS: ALPRAZolam (*CRX) 0.5 MG TABLET PO (08:13)
[2024-10-01] MEDS: CYANOCOBALAMIN 1,000 MCG TABLET 1000 MCG PO (08:13)
[2024-10-01] MEDS: carvediloL 6.25 MG TABLET PO (08:13)
[2024-10-01] MEDS: ASPIRIN 81 MG ENTERIC TABLET PO (08:13)
[2024-10-01] MEDS: FUROSEMIDE 80 MG TABLET BY MOUTH (08:14)
[2024-10-01] MEDS: SPIRONOLACTONE 25 MG TABLET PO (08:14)
[2024-10-01] MEDS: FERROUS SULFATE 325 MG TABLET DR PO (08:14)
[2024-10-01] MEDS: PANTOPRAZOLE 40 MG TABLET PO (08:14)
[2024-10-01] MEDS: LIDOCAINE 5% PATCH 1 PATCH TRANSDERM (08:14)
[2024-10-01 11:54] LABS: Glucose Point of Care 86 mg/dl (65-105)
--- NOTE | 2024-10-01 13:54 | P.DS_ITS ---
DS: Admitting Diagnosis Discharge Date 10/01 Admitting Diagnosis sob DS: Discharge Diagnosis Discharge Diagnosis (1) Chronic respiratory failure with hypoxia: Code(s): J96.11 - Chronic respiratory failure with hypoxia Status: Acute (2) Abdominal pain: Code(s): R10.9 - Unspecified abdominal pain Status: Acute (3) CHF exacerbation: Code(s): I50.9 - Heart failure, unspecified Status: Acute (4) Pneumonia: Qualifiers: Pneumonia type: aspiration pneumonia Aspiration pneumonia type: unspecified Laterality: bilateral Lung location: lower lobe of lung Qualified Code(s): J69.0 - Pneumonitis due to inhalation of food and vomit Code(s): J18.9 - Pneumonia, unspecified organism Status: Acute (5) DVT (deep venous thrombosis): Code(s): I82.409 - Acute embolism and thrombosis of unspecified deep veins of unspecified lower extremity Status: Acute (6) UTI (urinary tract infection): Qualifiers: Hematuria presence: without hematuria Urinary tract infection type: site unspecified Qualified Code(s): N39.0 - Urinary tract infection, site not specified Code(s): N39.0 - Urinary tract infection, site not specified Status: Acute (7) Macrocytic anemia: Code(s): D53.9 - Nutritional anemia, unspecified Status: Acute (8) Hypertension: Qualifiers: Hypertension type: essential hypertension Qualified Code(s): I10 - Essential (primary) hypertension Code(s): I10 - Essential (primary) hypertension Status: Acute (9) Chronic atrial fibrillation: Code(s): I48.20 - Chronic atrial fibrillation, unspecified Status: Acute (10) Chronic obstructive pulmonary disease: Code(s): J44.9 - Chronic obstructive pulmonary disease, unspecified Status: Acute (11) Hypothyroidism (acquired): Code(s): E03.9 - Hypothyroidism, unspecified Status: Acute (12) Type 2 diabetes mellitus: Code(s): E11.9 - Type 2 diabetes mellitus without complications Status: Acute (13) Obstructive sleep apnea: Code(s): G47.33 - Obstructive sleep apnea (adult) (pediatric) Status: Acute DS: Summary Hospital Course Hospital Course: Interval history: 79-year-old female with multiple medical problems including chronic respiratory failure on home oxygen, obstructive sleep apnea, chronic obstructive pulmonary disease, pulmonary hypertension, heart failure with preserved ejection fraction, chronic atrial fibrillation for which she is prescribed anticoagulation however she has not been taking it for a couple of months due to cost, chronic anemia, and anxiety who presented to the emergency department via EMS from home for evaluation of shortness of breath. Following issues were addressed: # chronic resp failure wears o2 at home was on 3-4 l but able to wean her down to RA # abd pain Severe abdominal pain directly after eating. Possible etiology includes duodenal vs peptic ulcer vs gas build up 2/2 aerophagia from COPD vs other. Patient is s/p cholecystectomy. Had a gastric bypass in the 2007. - Analgesics - Stool studies ordered to rule out infectious cause of abdominal pain - CTA abdomen/pelvis: 1. Nonspecific diarrhea with no obstruction or abnormal bowel wall thickening. 2. Small amount of scattered atherosclerotic plaque along the normal caliber abdominal aorta. No evaluation significant stenosis and several of its branches with no hemodynamically significant stenosis seen at the celiac axis, superior or inferior mesenteric arteries. 3. Mild cardiomegaly. 4. Small sliding-type hiatal hernia. 5. Cirrhosis. - Abdominal US ordered to further evaluate possible cirrhosis seen on CT: Sonographic findings suggestive of cirrhosis. - GI consulted s/p EGD on 09/29: unremarkable Started on Bentyl TIDWM Follow-up in the GI office afterwards for cirrhosis which appears to be compensated and most likely 2nd to fatty liver disease. 09/30: Patient endorsing severe abdominal pain with radiation to the back. EGD and KUB unremarkable. Endorsing decreased oral intake 2/2 pain. Trial Toradol. Remains on home norco. Monitor. # CHF exacerbation: Suspect acute on chronic diastolic CHF exacerbation and possibly pneumonia. Mildly elevated Trop related to CHF. - Symptoms: Shortness of breath. - Current medications: Lasix 80 mg PO daily - BNP: 7300 - D dimer positive - Troponin mildly elevated at 0.039 -> 0.035. EKG showing AFib, RAD and Rt BBB. - AB.35/40/94 on 4 L. - Chest x-ray shows mild bibasilar pulmonary edema. - CTA was negative for PE but does show patchy airspace opacities in the right lower lobe suspicious for aspiration and/or pneumonia. - Echo: EF 62%, Grade III diastolic dysfxn, RVE, mild pHTN (54mmHg) # pneumonia -completed Augmentin and doxy course # dvt Patient has ethan off her Eliquis prior to admission, unable to afford Eliquis or Xarelto - INR 2.8 on am labs - Doppler showing below the knee DVT right peroneal veins. - Start Lovenox 100 mg subq q12. Will need to stay on Lovenox for a day after patient reaches INR of 2-3 then in can be discontinued with patient receiving only Warfarin. Lovenox discontinued on 09/28. - Started Warfarin 5 mg PO qpm on 09/23, dose increased to 7.5 mg on 09/25. Decreased back to 5.0 mg on 09/29 as INR was progressively increasing. Goal 2-3. Patient will need set up for INR testing at discharge. 09/28 INR 2,5- will give Lovenox dose in am and pm and stop- pharmacy communication sent and RN, Con updated 10/01- INR 3.5- hold dose for 10/01 and resume 4 mg. Will need Pt/INR monitoring set up as an oupt INR Goal 2-3 Status at Discharge Functional status at discharge: uses cane/walker Overall status at discharge: patient is progressing back to baseline Time Spent with Patient Time attestation: Total time spent providing and/or coordinating discharge services: Time spent: Greater than 30 minutes Exam Narrative: General: female in no acute respiratory distress who is nontoxic appearing, lying semi recumbent in bed. HEENT: Normocephalic. Atraumatic. Extraocular movement intact. Sclera clear and anicteric. No facial asymmetry. Chest: Lungs are clear but diminished to auscultation bilaterally. No wheezes or crackles. CV: Heart was regular rate. S1-S2. No murmurs, gallops, or rubs. Abd: Abdomen was soft. RQ Tenderness. R CVA tenderness. Nondistended. Positive bowel sounds. No organomegaly or masses. Ext: No clubbing, cyanosis, or edema. 2+ DP pulses bilaterally. Neuro: Patient is alert and oriented x3. Cranial nerves 2-12 are intact. Speech is clear. Const: General: comfortable and no acute distress Eyes: Sclera: sclerae normal Resp: Auscultation: diminished lung sounds Cardio: Rhythm: abnormal rhythm irregularly irregular GI: Auscultation: normal bowel sounds Other: obese Skin: General skin exam: no rashes or lesions noted Neuro: Speech: normal speech Extrem: General: no pedal edema Psych: Affect: normal affect DS: Data Data Completed and Pending Completed studies during hospitalization: Pending at discharge 09/29/24 10:08 Surgical [PTH] Routine Labs on day of discharge: Labs from last 24 hours 10/01/24 10/01/24 10/01/24 11:47 07:54 05:12 PT 36.2 H INR 3.5 POC Capillary Glucose 86 95 09/30/24 09/30/24 20:44 17:19 PT INR POC Capillary Glucose 87 146 H Discharge Plan Discharge Attending physician on discharge: Andrew Santamaria Consulting providers: Keyana Lloyd; Abhay Harper Discharging Clinician: Keyana Lloyd Patient Disposition: Home Health Service Activity: as tolerated Diet: as tolerated, heart healthy and other - see discharge instructions Discharge Instructions: Discharge disposition: Patient was diagnosed with pneumonia during admission Completed antibiotic course during admission Evaluated by speech therapy who recommends easy to chew level 7 diet to prevent aspiration Patient was diagnosed with a heart failure exacerbation during admission Maintain a cardiac diet, 2 g sodium, do not over hydrate Remain active Monitor urine output Daily weights, if you gain more than 3 lb within 1 day or 5 lb in 1 week notify your primary care provider Continue patients chronic oxygen supplementation of 3-4 L nasal cannula Patient was diagnosed with a a blood clot on imaging Doppler showing below the knee DVT right peroneal veins. Started on lovenox and bridged to warfarin, INR now therapeutic Continue warfarin 4 mg daily Strict bleeding precautions since you are being started on warfarin including shaving with an electric razor, holding pressure for greater than 20 minutes for injury, protection of had with any falls, etc. Monitor blood pressures Changed to medications: Continue carvedilol 6.25 mg twice a day and spironolactone 25 mg daily Lasix dose increased from 40 mg daily to 80 mg daily Stop the losartan 100 mg daily and hydralazine 10 mg twice a day Discuss resuming with your primary care provider Take caution while standing, rising, or moving Change positions slowly taking a break between each position change If you standing feel dizzy sat back down and take a break Diagnosed with a urinary tract infection during admission Completed antibiotic course during stay Eat well balanced meals and stay hydrated Keep active to remain strong Avoid use of diapers or pads Good thompson Care every 2 hours Trend urine output Patient was having severe abdominal pain after eating Concern for cirrhosis on imaging GI consulted and imaging was EGD performed and unremarkable Started on Bentyl three times a day with meals, attached is information on this medication Follow-up in the GI office afterwards for cirrhosis which appears to be compensated and most likely 2nd to fatty liver disease. Encouraged to continue with yearly vaccinations Return to the emergency department if he developed sudden shortness of breath, chest pain, nausea, vomiting, upset stomach or intractable diarrhea Return to the emergency department if you develop fever greater than 101.5 Follow-up with the primary care physician within 1 weeks Thank you for [facility] for your healthcare needs Per Care Coordination. Patient to have [facility] for RN/labs and PT/OT eval and treat [phone]. RN please fax discharge instructions to [phone]. Patient Instructions: Dicyclomine (By mouth), Warfarin (By mouth), Heart Failure (DC), Cirrhosis of the Liver (DC), Pain Management in Older Adults (GEN), Pain Management (GEN), Chronic Pain (GEN), Deep Vein Thrombosis (DC), Narcotic Safety (GEN), Community Acquired Pneumonia (DC), Help Prevent Suicide in Older Adults (DC), Blood Thinners (DC), Urinary Tract Infection in Older Adults (DC), Suicide Prevention (DC), Non-pharmacological Pain Management Therapies for Adults (GEN) Patient Language: Malaysian Stand Alone Forms: General Discharge Information Follow-up/Referrals: Abhay Harper MD [Physician] - Call for Appointment Aleida El MD [Primary Care Provider] - 1 Week Don Gutierrez MD [Physician] - Call for Appointment Discharge Medications: New warfarin 4 mg tablet 4 mg PO DAILY Qty: 90 0RF Continued alprazolam 0.5 mg tablet 0.5 mg PO BID Qty: 60 1RF atorvastatin 20 mg tablet 20 mg PO QHS Qty: 90 3RF hydrocodone-acetaminophen 10-325 mg tablet 1 tablet PO Q6H PRN (Reason: Pain) furosemide 40 mg tablet 40 mg PO DAILY hydralazine 10 mg tablet 10 mg PO BID carvedilol 6.25 mg tablet 6.25 mg PO BID spironolactone 25 mg tablet 25 mg PO DAILY pantoprazole 40 mg tablet,delayed release (DR/EC) 40 mg PO DAILY losartan 100 mg tablet 100 mg PO DAILY potassium chloride 20 mEq tablet extended release 20 meq PO DAILY albuterol sulfate 2.5 mg /3 mL (0.083 %) solution for nebulization 2.5 mg inhalation QID PRN (Reason: shortness of breath or wheezing) Qty: 360 5RF albuterol sulfate 90 mcg/actuation HFA aerosol inhaler 1 - 2 puff INHALATION Q4-6H PRN (Reason: Shortness Of Breath) Qty: 8.5 5RF levothyroxine 112 mcg tablet 112 mcg PO DAILY Qty: 30 2RF budesonide-formoterol [Symbicort] 80-4.5 mcg/actuation HFA aerosol inhaler See Rx Instructions .ROUTE .COMPLEX Qty: 10.2 1RF Dose Instruction: INHALE 2 PUFFS BY MOUTH EVERY 12 HOURS. RINSE AND SPIT Rx Instructions: INHALE 2 PUFFS BY MOUTH EVERY 12 HOURS. RINSE AND SPIT. Keep appt for further refills Date of admission: 09/19/24 13:40 Primary Care Provider: Aleida El Admitting Provider: Cuong Stone Attending physician on admission: Cuong Stone Condition: Stable Quality VTE Prophylaxis VTE prophylaxis: pharmacologic ordered Hospitalist MIPS Heart Failure (Exclusion) Patient has history of Heart Transplant or Left Ventricular Assistive Device?: No IF YES, STOP HERE Heart Failure (Qualifier) Patient has current or prior documentation of LVEF less than or equal to 40%, or mod/servere depressed LVSF?: No IF NO, STOP HERE
== END 2024-10-01 15:57 | disposition home health service (06) | DRG 193 ==
LOC: ANHED 13:32 → ANH3MEDSUR 14:37 → ANHIMU 09-20 08:28 → ANH2MED 09-21 18:28
PROVIDERS: Internal Medicine Gastroenterology; Nurse Practitioner Family; Physician Assistant; Student in an Organized Health Care Education/Training Program; Admitting Provider Internal Medicine; Emergency Provider Emergency Medicine; PCP Family Medicine; Visit Provider Nurse Practitioner
PROC: 0DJ08ZZ Inspection of Upper Intestinal Tract, Via Natural or Artificial Opening Endoscopic (ICD-10-PCS; CPT 43235; principal; 2024-09-29 15:30)
DX: J18.9 Pneumonia, unspecified organism (principal); I50.33 Acute on chronic diastolic (congestive) heart failure; I48.20 Chronic atrial fibrillation, unspecified; J96.11 Chronic respiratory failure with hypoxia; N39.0 Urinary tract infection, site not specified; I82.451 Acute embolism and thrombosis of right peroneal vein; B96.20 Unspecified Escherichia coli [E. coli] as the cause of diseases classified elsewhere; G89.4 Chronic pain syndrome; D53.9 Nutritional anemia, unspecified; D51.9 Vitamin B12 deficiency anemia, unspecified; E11.42 Type 2 diabetes mellitus with diabetic polyneuropathy; F41.9 Anxiety disorder, unspecified; G47.33 Obstructive sleep apnea (adult) (pediatric); I11.0 Hypertensive heart disease with heart failure; I27.20 Pulmonary hypertension, unspecified; J43.9 Emphysema, unspecified; K21.9 Gastro-esophageal reflux disease without esophagitis; M54.50 Low back pain, unspecified; M81.0 Age-related osteoporosis without current pathological fracture; E03.9 Hypothyroidism, unspecified; R19.7 Diarrhea, unspecified; R10.13 Epigastric pain; T45.516A Underdosing of anticoagulants, initial encounter; Z91.141 Patient's other noncompliance with medication regimen due to financial hardship; Z79.01 Long term (current) use of anticoagulants; Z20.822 Contact with and (suspected) exposure to COVID-19; Z85.42 Personal history of malignant neoplasm of other parts of uterus; Z90.49 Acquired absence of other specified parts of digestive tract; Z98.84 Bariatric surgery status; Z96.651 Presence of right artificial knee joint; Z87.891 Personal history of nicotine dependence; Z79.891 Long term (current) use of opiate analgesic; Z99.81 Dependence on supplemental oxygen
CPT/HCPCS: 36415; 36600; 71045; 71275; 74018; 74174; 76705; 80048; 80053; 80069; 81001; 82607; 82728; 82746; 82805; 82948; 83036; 83540; 83550; 83605; 83690; 83735; 83880; 84132; 84145; 84443; 84484; 85018; 85025; 85027; 85380; 85610; 85730; 86140; 87045; 87070; 87077; 87086; 87088; 87186; 87205; 87427; 87449; 87637; 87641; 87899; 88305; 89055; 92526; 92610; 93005; 93970; 94640; 96361; 96374; 96375; 97110; 97161; 97165; 97530; 97535; 99285; A9270; C8929; J0696; J1100; J1650; J1940; J2003; J2270; J2704; J3360; J3370; J3420; J7030; J7120; Q9957; Q9967

== ENCOUNTER 2025-01-16 10:18 | Outpatient (CLI) | payer MEDICARE, OTHER, SELFPAY ==
--- NOTE | ~2025-01-16 | XR_ITS ---
Cervical Spine: AP, lateral, open-mouth views Clinical History: Pain Findings: The normal lordotic curve is maintained. No acute fracture seen. There is minimal grade 1 r etrolisthesis of C4 over C5. There is moderate degenerative disc narrowing from C4 through C7. There is moderate facet arthropathy. Pre-vertebral soft tissues are unremarkable. Impression: Moderate degenerative spondylosis, as above, with associated minimal grade 1 retrolisthesis of C4 ove r C5. Reviewed, dictated and finalized at location . Impression: Moderate degenerative spondylosis, as above, with associated minimal grade 1 re trolisthesis of C4 over C5.
--- NOTE | ~2025-01-16 | XR_ITS ---
Lumbosacral Spine: AP and lateral views Clinical History: Pain Findings: There is straightening of the normal lumbar lordosis. No fracture or subluxation. There is severe degenerative disc narrowing from L2 through S1. There is moderate degenerative disc narrowing at L1-L2. There is severe facet arthropathy throughout the lumbar spine. The sacroiliac joints are no rmally outlined. Impression: Severe degenerative spondylosis throughout the lumbar spine, as above. Reviewed, dictated and finalized at location M. Impression: Severe degenerative spondylosis throughout the lumbar spine, as above.
--- OUTSIDE RECORDS SUMMARY | 2025-01-16 11:30 | XMS_ITS | Clinical Summary ---
Author Organization [facility] Address [address] [place] [id number] Care Team Providers Care Certified Juvenile Probation Officer Name Role Phone Unavailable Primary Care Provider Unavailabl e Social History Tobacco Use Types Packs/Day Years Used Date Smoking Tobacco: Never Assessed Comments Unknown Sex and Gender Information Value Date Recorded Sex Assigned at Not on file Legal Sex Female 7:09 PM CDT Gender Identity Not on file Sexual Orientation Not on file Plan of Treatment Health Maintenance Due Date Last Done Comments Hepatitis C 1965 DTaP, Tdap and Td Vaccines ( 1 - Tdap) 1966 Zoster Vaccines (1 of 2) 1997 Dexa Scan (General) 2012 Pneumococcal Vaccine: 65+ Ye ars (1 of 1 - PCV) 2012 RSV Immunization or 60+ Years (1 - 1-dose 75+ series) 2022 COVID-19 Vaccine (2023-2 5 season) 2024 Influenza Adult (#1) 2024 Meningococcal B Vaccine Aged Out No l onger eligible based on patient's age to complete this topic Meningococcal Vaccine Aged Out No sisi riki eligible based on patient's age to complete this topic RSV Immunizations Under 20 Months Aged Out No longer eligible based on patient's age to complete this topic
--- OUTSIDE RECORDS SUMMARY | 2025-01-16 11:30 | XMS_ITS | Clinical Summary ---
Author Organization [facility] [address] Address [address] [place] [address] Care Team Providers Care Drafting Supervisor Name Role Phone Aleida El MD Primary Care Provider Allergies No known active allergies Medications Eliquis 5 mg tablet TK 1 T PO BID 09/06/2020 Activ e ALPRAZolam (XANAX) 0.5 mg tablet 10/13/2020 Active losartan (COZAAR) 100 mg tablet 10/13/2020 Active metoprolol XL (TOPROL-XL) 25 mg extended release tablet 10/13/2020 Acti ve spironolactone (ALDACTONE) 25 mg tablet 10/13/2020 Active furosemide (LASIX) 40 mg tablet TK 1 T PO QD 08/12/2020 Active Symbicort 80-4.5 mcg/actuation inhaler INHALE 2 PUFFS BY MOUTH EVERY 12 HOURS 10/04/2020 Active cyclobenzaprine (FLEXERIL) 10 mg tablet Take 10 mg by mouth 3 (three) times a day as needed for muscle spasms Active albuterol (PROAIR RESPICLICK) 90 mcg/actuation inhaler Inhale 2 puffs every 6 (six) hours as needed for wheezing Active Active Problems Problem Noted Date Diagnosed Date Dyslipidemia associated with type 2 diabetes valentin litus 10/15/2020 Chronic respiratory failure with hypoxia 020 COPD (chronic obstructive pulmonary disease) History of deep venous thrombosis 10/15/2020 Pulmonary hypertension 10/15/2020 ALBERTO on CPAP 10/15/2020 Atrial fibrillation 10/14/2020 Hypertension associated with diabetes 10/14/2020 Morbid obesity with BMI of 45.0-49.9, adult 09/28 Chronic anticoagulation 10/14/2020 Surgical History Surgery Date Site/Laterality Comments SECTION x2 CHOLECYSTECTOMY KNEE SURGERY HYSTERECTOMY GASTRIC BYPASS CYST REMOVAL Medical History Medical History Date Comments Hypertension Overweight Cardiac rhythm disturbance Acid indigestion Cancer (HCC) Anxiety and depression ALBERTO (obstructive sleep apnea) COPD (chronic obstructive pulmonary disease) (HC C) Chronic bronchitis (HCC) Arthritis Asthma Family History Medical History Relation Name Comments Cancer Sister Relation Name Status Comments Father (Age 70's) Mother (Age 47) Sister (Age 53) Social History Tobacco Use Types Packs/Day Years Used Date Smoking Tobacco: Former Cigarettes Q uit: 1999 Smokeless Tobacco: Never Alcohol Use Standard Drinks/Week Comments Not Currently 0 (1 standard drink = 0.6 oz pur e alcohol) Personal Safety Answer Date Recorded Getting School Help Needed Not on file 01/12 Comments Unknown Sex and Gender Information Value Date Recorded Sex Assigned at Not on file Legal Sex Female 3:15 AM YARD COUPLER Gender Identity Not on file Sexual Orientation Not on file Obstetrics History Last Filed Vital Signs Vital Sign Reading Time Taken Comments Blood Pressure 126/74 10/14/2020 12:45 PM YARD COUPLER Pulse 72 10/14/2020 12:45 PM YARD COUPLER Temperature - - Respiratory Rate - - Oxygen Saturation 98% 10/14/2020 12:45 PM YARD COUPLER Inhaled Oxygen Concentration - - Weight 123.8 kg (273 lb) 10/14/2020 12:45 PM YARD COUPLER Height 165.1 cm (5' 5 ) 10/14/2020 12:45 PM YARD COUPLER Body Mass Index 45.43 10/14/2020 12:45 PM YARD COUPLER Plan of Treatment Not on file Insurance * Guarantor: Cheyenne Sawyer Account Type Relation to Patient Date of Phone Billing Address Personal/Family Self 1945 [address] [place] [address] [place] [address] [place] [address] Care Teams Drafting Supervisor Relationship Specialty Start Date End Date Aleida El MD [address] [facility] [address] [place] [address] PCP - General Family Medicine 10/13/20
--- OUTSIDE RECORDS SUMMARY | 2025-01-16 11:30 | XMS_ITS | Referral Summary ---
Author Organization [facility] [address] Address [address] [place] [address] Care Team Providers Care Nursing Care Attendant Name Role Phone Aleida El MD Primary [...] of 45.0-49.9, adult 09/28 Chronic anticoagulation 10/14/2020 Social History Tobacco Use Types Packs/Day Years [...] on file Legal Sex Female 3:15 AM INSPECTOR PROCESS Gender Identity Not on file Sexual Orientation Not on file Last Filed Vital Signs Vital Sign Reading Time Taken Comments Blood Pressure 126/74 10/14/2020 12:45 PM INSPECTOR PROCESS Pulse 72 10/14/2020 12:45 PM INSPECTOR PROCESS Temperature - - Respiratory Rate - - Oxygen Saturation 98% 10/14/2020 12:45 PM INSPECTOR PROCESS Inhaled Oxygen Concentration - - Weight 123.8 kg (273 lb) 10/14/2020 12:45 PM INSPECTOR PROCESS Height 165.1 cm (5' 5 ) 10/14/2020 12:45 PM INSPECTOR PROCESS Body Mass Index 45.43 10/14/2020 12:45 PM INSPECTOR PROCESS Plan of Treatment Not on file Insurance MEDICARE [facility] Address: [facility] [address] [place] [address] [place] [address] MEDICARE [facility] Address: [address] [place] [phone] [place] [address] Care Teams Nursing Care Attendant Relationship Specialty Start Date End Date Aleida El MD [address] [facility] [address] [place] [address] PCP - General Family Medicine 10/13/20
== END 2025-01-16 10:19 | disposition home or self-care (01) ==
PROVIDERS: PCP Family Medicine; Visit Provider Pain Medicine Interventional Pain Medicine
DX: M47.892 Other spondylosis, cervical region (principal); M43.12 Spondylolisthesis, cervical region; M47.896 Other spondylosis, lumbar region
CPT/HCPCS: 72050; 72100

== ENCOUNTER 2025-09-23 18:42 | Emergency (ER) | payer MEDICARE, OTHER, SELFPAY ==
[2025-09-23] VITALS (7 sets, daily range): BP systolic 137–172; BP diastolic 61–95; PULSE 86–104; RESP 14–21; TEMP 36.8; O2SAT 97–99
--- NOTE | ~2025-09-23 | XR_ITS ---
EXAMINATION: XR chest 2V DATE: 09/23/2025 19:12 INDICATION: Cough. TECHNIQUE: Frontal and lateral views of the chest were obtained. COMPARISON: None. FINDINGS: Severe cardiomegaly. Atherosclerotic aorta. Prominent central pulmonary arteries due to pulmonary hypertension. No acute pulmonary findings. IMPRESSION: 1. No acute pulmonary findings. Significant cardiomegaly with atherosclerotic aorta. 2. Evidence of severe pulmonary arterial hypertension. Reviewed, dictated and finalized at location T. TING FRAME OPERATOR IMPRESSION: 1. No acute pulmonary findings. Significant cardiomegaly with atherosclerotic a makeda. 2. Evidence of severe pulmonary arterial hypertension.
--- NOTE | 2025-09-23 18:46 | ECG_ITS ---
Test Date: 2025-09-23 18:48:28 Measurements Intervals [place] Rate: 90 P: 0 [place]: 0 QRS: 95 QRSD: 136 T: -11 QT: 381 QTc: 466 Interpretive Statements ATRIAL FIBRILLATION RIGHT BUNDLE BRANCH BLOCK [120+ ms QRS DURATION, UPRIGHT V1, 40+ ms S IN I/aVL/V4/V5/V6] SEPTAL MYOCARDIAL INFARCTION , OF INDETERMINATE AGE [40+ ms Q WAVE IN V1/V2] ABNORMAL ECG Compared to ECG 09/20/2024 08:33:44 No significant changes Electronically Signed On 09-24-2025 08:49:23 POWDERMAN by Basim Crawford M.D.
--- NOTE | 2025-09-23 19:08 | ED.SOB ---
HPI - SOB/Dyspnea General Chief Complaint: Shortness of Breath/Dyspnea Stated Complaint: SOB, COUGH, Hx OF COPD Time Seen by Provider: 09/23/25 19:01 History of Present Illness HPI Narrative: 80-year-old female with history of COPD on 3 L nasal cannula, ALBERTO on CPAP at night, CHF, AFib on apixaban and Coreg. Patient presents to the emergency department today with complaints of shortness of breath for the last 3 weeks associated with a cough productive of green thick sputum. States that her albuterol at home and the albuterol provided by EMS was not relieving any symptoms and she is still coughing up green phlegm. Has had a grandson home as also been ill. Denies any fever chills. No chest pain, nausea, vomiting, chest pain, diarrhea. States she just feels a she can not get enough air into her chest. Was otherwise in her normal state of health. On review of the EMR patient also has severe anxiety disorder and been on long-term alprazolam. Related Data Home Medications ?Medication ?Instructions ?Recorded ?Confirmed ?Last Taken ?Type hydrocodone 10 mg-acetaminophen 1 tablet PO Q6H PRN Pain 05/26/20 05/22/25 06/21/22 History 325 mg tablet Allergies Allergy/AdvReac Type Severity Reaction Status Date / Time quetiapine (From Seroquel) AdvReac Intermediate Confusion Verified 09/23/25 18:47 Review of Systems Review of Systems: as reviewed above in HPI All systems reviewed & are unremarkable except as noted in HPI and below PMFSH Past Medical History Medical History Heart failure with preserved ejection fraction Diabetic polyneuropathy associated with type 2 diabetes mellitus Chronic anemia Chronic anticoagulation Obstructive sleep apnea Gastroesophageal reflux disease Chronic obstructive pulmonary disease Chronic respiratory failure with hypoxia, on home oxygen therapy Type 2 diabetes mellitus with autonomic neuropathy Emphysema lung Severe pulmonary arterial systolic hypertension RVSP of 63 millimeters of mercury on echocardiogram in June 2019. Takotsubo cardiomyopathy In May 2019 with ejection fraction as low as 25 to 30%. EF improved to 65% on echo in June 2019. Chronic diastolic congestive heart failure History of tobacco use Benign essential tremor Chronic pain syndrome Due to chronic back and neck pain. She is on long-term opiate therapy. Osteoporosis Uterine cancer Benign colon polyp Inguinal hernia Asthma Seasonal allergies Hypertension Chronic atrial fibrillation Fibromyalgia Depression Arthritis Peripheral neuropathy Anxiety Surgical History Surgical History History of exploratory laparotomy With adhesiolysis. History of cardiac cath History of surgical removal of ganglion cyst History of dilatation and curettage History of 2 sections History of incisional hernia repair History of total abdominal hysterectomy and bilateral salpingo-oophorectomy For uterine cancer. History of tubal ligation History of right knee joint replacement History of cholecystectomy History of gastric bypass Family History Family History Mother Family history of heart disease in male family member before age 55 Diabetes mellitus Patient's mother is Family history of chronic obstructive pulmonary disease Father Family history of arthritis Patient's father is Family history of emphysema Family history of lung disease Sibling Family history of malignant neoplasm of ovary Family history of malignant neoplasm Patient's sister is Patient's sister is in good health Family history of malignant neoplasm of uterus Grandparent Diabetes mellitus Other Family history of cardiovascular disease Family history of osteoarthritis Hypertension Social History Social History Social History: . Lives alone but has family close by. Smoked up to 2 packs of cigarettes per day for 40 years and quit in 2000. No alcohol or drug abuse. She designates her daughter, Carmita Day, as her surrogate decision maker. Code status: Full code. Smoking packs per day: 3 Smoking cigarettes per day: 60.0 Years smoked: 30 Smoking pack-years: 90.00 Smoking status: Former smoker Tobacco type: cigarettes Second hand tobacco smoke exposure: No Alcohol intake: never Substance use: current Substance use type: opiates Lack of Transportation: No Lack of Food: Never True Current Housing: I Have Housing Concerned About Future Housing: No Difficulty Paying Gas/Electric Bills: No Difficulty Paying for Meds: No Currently Unemployed: YES Education: Don't Know Difficulty w/ Childcare or Family Care: No Living arrangements: alone Occupation/Education: retired Spiritual care concerns: No Exam Narrative: GENERAL: chronically ill-appearing but not any acute distress. Coughing frequently throughout the exam with green sputum production HEAD: [Normocephalic, atraumatic.] EYES: [PERRLA and EOMI.] ENT: Nares clear, no rhinorrhea or epistaxis. Mucous membranes moist. NECK: Supple. CHEST: No wheezing or rales but she does have some coarse breath sounds in the right lung base. No retractions or decreased air entry. No prolonged expiratory phase. Conversing in clear sentences. Coughing frequently. HEART: [Regular rate and rhythm]. No murmur heard. [Normal peripheral pulses.] ABDOMEN: [Soft, nondistended], [nontender], [No rigidity or guarding] EXTREMITIES: Normal range of motion. [No edema.] SKIN: Warm, dry, no rash. NEURO: [No focal deficits]. Alert and oriented [x3.] PSYCH: [Normal mood and affect.] Course Vital Signs Vital signs: Vital Signs Temperature 36.8 C 09/23/25 18:39 Pulse Rate 100 09/23/25 18:39 Respiratory Rate 18 09/23/25 18:39 Blood Pressure 137/61 09/23/25 18:39 Pulse Oximetry 99 09/23/25 18:39 Oxygen Delivery Nasal Cannula 09/23/25 18:39 Oxygen Flow Rate 3 09/23/25 18:39 Temperature 36.8 C 09/23/25 18:39 Pulse Rate 100 09/23/25 23:37 Respiratory Rate 19 09/23/25 23:37 Blood Pressure 170/90 H 09/23/25 23:37 Pulse Oximetry 97 09/23/25 23:37 Oxygen Delivery Nasal Cannula 09/23/25 18:39 Oxygen Flow Rate 3 09/23/25 18:39 MDM - SOB/Dyspnea MDM Narrative Medical decision making narrative: 80-year-old female with history of COPD on 3 L nasal cannula, ALBERTO on CPAP at night, CHF, AFib on apixaban and Coreg. Patient presents to the emergency department today with complaints of shortness of breath for the last 3 weeks associated with a cough productive of green thick sputum. States that her albuterol at home and the albuterol provided by EMS was not relieving any symptoms and she is still coughing up green phlegm. Has had a grandson home as also been ill. Denies any fever chills. No chest pain, nausea, vomiting, chest pain, diarrhea. States she just feels a she can not get enough air into her chest. Was otherwise in her normal state of health. On review of the EMR patient also has severe anxiety disorder and been on long-term alprazolam. No wheezing or rales but she does have some coarse breath sounds in the right lung base. No retractions or decreased air entry. No prolonged expiratory phase. Conversing in clear sentences. Coughing frequently. Patient otherwise has normal vital signs without any tachycardia, fever, hypoxemia, blood pressure concerns. On her baseline oxygen. Suspect pneumonia versus viral syndrome versus bronchitis versus less likely COPD exacerbation given the lack of wheezing or any decreased air entry. Low suspicion fluid overload given her clinical euvolemia and she is compliant with her medications including apixaban so low suspicion thromboembolic disease. No signs of DVT. Cardiac workup ordered this time as well as a BNP and viral panel swabs. Chest x-rays were obtained and she was placed on rn cardiac rehab. Patient's x-ray shows no obvious consolidations or pleural effusions. Pulmonary hypertension chronic. Given the productive cough and coarse right-sided breath sounds for 3 weeks will treat this as a atypical pneumonia with her history of susceptibility from chronic lung disease. Given Rocephin azithromycin here. Given a small dose of Lasix given the pulmonary hypertension history with mildly elevated BNP but better than her previous levels. Patient was given a dose of [place] for her chronic back pain. Labs showed no significant leukocytosis or anemia. Anemia at baseline. Electrolytes are unremarkable. Kidney function at baseline. LFTs unremarkable. Negative troponin. Negative viral panel. AFib on the EKG chronic, no ST segment derangements. Patient re-evaluated and doing well. Remains hemodynamically stable and at baseline oxygen. No tachycardia or fever. Safe for discharge home with antibiotics including Augmentin and azithromycin and return precautions. Patient and family comfortable with the plan and will follow-up with her primary doctor and administrative hearing officer on outpatient basis. Medical Records Attestation: I reviewed the patient's medical records. Lab Data Attestation: I reviewed the patient's lab results. 09/23/25 18:55 09/23/25 18:55 Labs: Lab Results 09/23/25 09/23/25 Range/Units 18:55 19:22 WBC 10.1 H (4.5-10.0) K/mm3 RBC 3.28 L (4.2-5.4) M/mm3 Hgb 10.2 L (12.0-15.0) g/dL Hct 33.2 L (37.0-47.0) % MCV 101.2 H (80-100) fl MCH 31.1 (26-34) pg MCHC 30.7 L (32-36) g/dl RDW 13.0 (11.5-14.5) % Plt Count 398 H (150-375) k/mm3 MPV 8.4 (7.4-10.4) fl Immature Gran % (Auto) 0.6 H (0-0.5) % Neut % (Auto) 71.9 (45.5-73.1) % Lymph % (Auto) 14.4 L (18.3-44.2) % [place] % (Auto) 11.4 H (2.6-8.5) % Eos % (Auto) 1.1 (0-4.4) % Baso % (Auto) 0.6 (0.2-1.2) % Lymph # (Auto) 1.46 (0.9-3.2) K/mm3 [place] # (Auto) 1.2 H (0.1-0.6) K/mm3 Eos # (Auto) 0.1 (0-0.3) K/mm3 Baso # (Auto) 0.1 (0.0-0.1) K/mm3 Abs Immat Gran (auto) 0.06 H (0.00-0.031) K/mm3 Absolute Neuts (auto) 7.3 H (1.3-6.7) K/mm3 Absolute Nucleated RBC 0.000 (0.0-0.012) K/mm3 Nucleated RBC % 0.0 (0.0-0.2) % Sodium 137 (137-145) mmol/L Potassium 4.8 (3.4-5.0) mmol/L Chloride 104 (98-107) mmol/L Carbon Dioxide 25 (22-30) mmol/L Anion Gap 8 (4-12) mmol/L BUN 31 H (7-17) mg/dL Creatinine 1.09 H (0.7-1.0) mg/dL Estim Creat Clear Calc 46 ml/min Estimated GFR 49 L (59 - ) Glucose 69 (65-110) mg/dL Calcium 9.1 (8.4-10.2) mg/dL Total Bilirubin 0.4 (0.2-1.3) mg/dL AST 19 (14-36) U/L ALT 17 (6-35) U/L Alkaline Phosphatase 136 H (38-126) U/L Troponin I < 0.012 (0.000-0.034) ng/mL NT-Pro-B Natriuret Pep 3330 H (19.9-100) pg/mL Total Protein 7.0 (6.3-8.2) g/dL Albumin 4.1 (3.5-5.1) g/dL Influenza A (RT-PCR) Negative (Negative) Influenza B (RT-PCR) Negative (Negative) RSV (RT-PCR) Negative (Negative) SARS-CoV-2 RNA (RT-PCR) Negative (Negative) Imaging Data Attestation: I personally reviewed and interpreted this imaging study as follows: My impression: Impressions Chest X-Ray 09/23/25 19:14 IMPRESSION: 1. No acute pulmonary findings. Significant cardiomegaly with atherosclerotic aorta. 2. Evidence of severe pulmonary arterial hypertension. Discharge Plan Discharge Clinical Impression: Atypical pneumonia, Chronic obstructive pulmonary disease, Chronic pulmonary hypertension Patient Disposition: Home Condition: Stable Instructions: Antibiotic Form, Pulmonary Arterial Hypertension (ED), Pneumonia (ED) Additional Instructions: Given the 3 weeks of productive cough and right-sided abnormal breath sounds we will treat you for an atypical pneumonia. No consolidations or pleural effusions on the chest x-ray. Laboratory studies around baseline. Follow-up with your regular doctor and administrative hearing officer. Complete the antibiotic course as prescribed. Return with any emergencies, worsening respiratory status, developing chest pain, losing consciousness or any other issues. Patient Language: [place] Prescriptions: New azithromycin [Zithromax Z-Alo] 250 mg tablet See Rx Instructions PO .COMPLEX Qty: 6 0RF Rx Instructions: For 250 mg dose pack: take 500 mg today (day 1), then 250 mg for 4 days (days 2-5) amoxicillin-pot clavulanate 875-125 mg tablet 1 tablet PO Q12H 7 Days Qty: 14 0RF No Action Eliquis 5 mg tablet 5 mg PO BID Qty: 180 0RF atorvastatin 20 mg tablet 20 mg PO QHS Qty: 90 3RF hydralazine 10 mg tablet 10 mg PO BID Qty: 180 1RF hydrocodone-acetaminophen 10-325 mg tablet 1 tablet PO Q6H PRN (Reason: Pain) albuterol sulfate 2.5 mg /3 mL (0.083 %) solution for nebulization 2.5 mg inhalation QID PRN (Reason: shortness of breath or wheezing) Qty: 360 5RF carvedilol 6.25 mg tablet 6.25 mg PO BID Qty: 180 1RF losartan 100 mg tablet 100 mg PO DAILY Qty: 90 2RF furosemide 40 mg tablet 40 mg PO DAILY Qty: 90 2RF alprazolam 0.25 mg tablet 0.25 mg PO BID Qty: 60 0RF spironolactone 25 mg tablet See Rx Instructions .ROUTE .COMPLEX Qty: 90 1RF Dose Instruction: TAKE 1 TABLET BY MOUTH DAILY Rx Instructions: TAKE 1 TABLET BY MOUTH DAILY albuterol sulfate 90 mcg/actuation HFA aerosol inhaler 1 - 2 puff INHALATION Q4-6H PRN (Reason: Shortness Of Breath) Qty: 8.5 5RF pantoprazole 40 mg tablet,delayed release (DR/EC) 40 mg PO DAILY Qty: 90 1RF potassium chloride 20 mEq tablet extended release See Rx Instructions .ROUTE .COMPLEX Qty: 90 1RF Dose Instruction: TAKE 1 TABLET BY MOUTH DAILY AT 8 AM Rx Instructions: TAKE 1 TABLET BY MOUTH DAILY AT 8 AM levothyroxine 112 mcg tablet See Rx Instructions .ROUTE .COMPLEX Qty: 30 0RF Dose Instruction: TAKE 1 TABLET BY MOUTH DAILY Rx Instructions: TAKE 1 TABLET BY MOUTH DAILY budesonide-formoterol [Symbicort] 80-4.5 mcg/actuation HFA aerosol inhaler See Rx Instructions .ROUTE .COMPLEX Qty: 10.2 1RF Dose Instruction: INHALE 2 PUFFS BY MOUTH EVERY 12 HOURS. RINSE AND SPIT. Rx Instructions: INHALE 2 PUFFS BY MOUTH EVERY 12 HOURS. RINSE AND SPIT. Follow-up/Referrals: Terell Hancock MD [Primary Care Provider, Family Practice] Time of Disposition: 21:28
[2025-09-23 19:09] LABS: Hematocrit 33.2 % (37.0-47.0); Hemoglobin 10.2 g/dL (12.0-15.0); Immature Granulocyte Percent A 0.6 % (0-0.5); Lymphocytes Absolute Auto 1.46 K/mm3 (0.9-3.2); Mean Corpuscular HGB Conc 30.7 g/dl (32-36); Mean Corpuscular Hemoglobin 31.1 pg (26-34); Mean Corpuscular Volume 101.2 fl (80-100); Nucleated Red Blood Cells Absolute Auto 0.000 K/mm3 (0.0-0.012); Nucleated Red Blood Cells Perc 0.0 % (0.0-0.2); Platelet Count Result 398 k/mm3 (150-375); Red Blood Count 3.28 M/mm3 (4.2-5.4); White Blood Count 10.1 K/mm3 (4.5-10.0)
[2025-09-23 19:25] LABS: Alanine Aminotransferase 17 U/L (6-35); Albumin Level 4.1 g/dL (3.5-5.1); Alkaline Phosphatase 136 U/L (38-126); Anion Gap 8 mmol/L (4-12); Aspartate Amino Transferase 19 U/L (14-36); Bilirubin,Total 0.4 mg/dL (0.2-1.3); Blood Urea Nitrogen 31 mg/dL (7-17); Calcium 9.1 mg/dL (8.4-10.2); Carbon Dioxide 25 mmol/L (22-30); Chloride 104 mmol/L (98-107); Estimated CRCL calculation 46 ml/min; Estimated Glomerular Filt Rate 49; Glucose 69 mg/dL (65-110); Potassium 4.8 mmol/L (3.4-5.0); Sodium 137 mmol/L (137-145); Total Protein 7.0 g/dL (6.3-8.2)
--- OUTSIDE RECORDS SUMMARY | 2025-09-23 19:26 | XMS_ITS | Clinical Summary ---
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 Gender Identity Not on file Sexual Orientation Not on file Last Filed Vital Signs Vital Sign Reading Time Taken Comments Blood Pressure 126/74 10/14/2020 12:45 PM TEAM ASSISTANT Pulse 72 10/14/2020 12:45 PM TEAM ASSISTANT Temperature - - Respiratory Rate - - Oxygen Saturation 98% 10/14/2020 12:45 PM TEAM ASSISTANT Inhaled Oxygen Concentration - - Weight 123.8 kg (273 lb) 10/14/2020 12:45 PM TEAM ASSISTANT Height 165.1 cm (5' 5) 10/14/2020 12:45 PM TEAM ASSISTANT Body Mass Index 45.43 10/14/2020 12:45 PM TEAM ASSISTANT Plan of Treatment Not on file Insurance MEDICARE [facility] [place] [address] [facility] [place] [address] Care Teams Male Model Relationship Specialty Start Date End Date Aleida El MD [address] [place] [id number] PCP - General Family Medicine 10/13/20
[2025-09-23 19:37] LABS: NT Pro B Type Natriuretic Pept 3330 pg/mL (19.9-100)
[2025-09-23 19:39] LABS: Troponin I < 0.012 ng/mL (0.000-0.034)
--- NOTE | 2025-09-23 19:39 | PC.NURSE ---
Per EDP no blood cultures needed.
[2025-09-23] MEDS: IPRATROPIUM 0.5 MG/ALBUTEROL SULFATE 2.5 MG (BASE) AMPUL.NEB 3 ML INHALATION (19:44)
[2025-09-23] MEDS: cefTRIAXone 2 GM in SODIUM CHLORIDE 0.9% IV 100 ML 200 ML IVPB (19:56)
[2025-09-23 20:03] LABS: Influenza A QL RT-PCR Negative (Negative); Influenza B QL RT-PCR Negative (Negative); RSV RNA, RT-PCR Negative (Negative); SARS-CoV-2 RNA PCR Negative (Negative)
[2025-09-23] MEDS: FUROSEMIDE INJ 40 MG/4 ML VIAL IV PUSH (20:56)
[2025-09-23] MEDS: AZITHROMYCIN IV 500 MG in SODIUM CHLORIDE 0.9% IV 250 ML IVPB (21:00)
[2025-09-23] MEDS: HYDROcodone/acetaminophen (*CRX) 5-325 MG TABLET 1 TAB PO (22:04)
== END 2025-09-23 23:53 | disposition home or self-care (01) ==
PROVIDERS: Emergency Medicine; Emergency Provider Student in an Organized Health Care Education/Training Program; PCP Family Medicine
DX: J18.9 Pneumonia, unspecified organism (principal); I27.20 Pulmonary hypertension, unspecified; J44.9 Chronic obstructive pulmonary disease, unspecified; Z99.81 Dependence on supplemental oxygen; Z79.01 Long term (current) use of anticoagulants; Z79.899 Other long term (current) drug therapy
CPT/HCPCS: 36415; 71046; 80053; 83880; 84484; 85025; 87637; 93005; 94640; 96365; 96367; 96375; 99284; A9270; J0456; J0696; J1938; J7050